=== PATIENT | female | born 1945 | race Caucasian/White ===

== ENCOUNTER → 2017-11-21 10:49 | Outpatient (CLI) | payer MEDICARE, MEDICAID, SELFPAY ==
[2017-07-22 05:44] VITALS: BP 152/79; BMI 27.2
--- NOTE | 2017-11-21 10:54 | ECHOCS_ITS ---
Reason For Study: CAD/ASHD Procedure This was a 2D Doppler, Color Flow transthoracic echocardiogram. The exam was of poor technical quality due to diminished acoustic windows. The study was technically difficult. Contrast injection was performed. Exam performed in department. Left Ventricle Normal LV size. Mild concentric left ventricular hypertrophy. Left ventricular systolic function is normal. The estimated ejection fraction is 60 %. No regional wall motion abnormalities noted. Right Ventricle Normal RV size. Normal systolic function. Atria Normal left atrium. Normal right atrium. No doppler evidence for ASD. Mitral Valve There is mild mitral annular calcification. Mild focal mitral valve calcification of the anterior leaflet. Mild (1+) mitral valve insufficiency. Tricuspid Valve Normal tricuspid valve. Trivial tricuspid valve insufficiency. Right ventricular systolic pressure estimated to be 32 mmHg. Aortic Valve Trisinus/trileaflet aortic valve. Mild diffuse aortic valve thickening. Mild focal aortic valve calcification. Trivial aortic valve insufficiency. Pulmonic Valve The pulmonic valve is not well visualized. Trivial pulmonic valve insufficiency. Great Vessels Normal sized aortic root. Calcified aortic root. Pericardium/Pleural No pericardial effusion. Medication 20 gauge I.V. with prn adaptor inserted into right arm. Diluted definity 2ml given slow IV push to enhance endocardial definition. MMode/2D Measurements & Calculations LVIDd: 3.6 cm IVSd: 1.5 cm LVOT diam: 2.0 cm LVIDs: 2.4 cm LVPWd: 1.3 cm LVOT area: 3.0 cm2 FS: 31.4 % Ao root diam: 2.6 cm LAV(MOD-sp4): 42.7 ml LVAd ap4: 28.6 cm2 LA dimension: 3.4 cm EDV(MOD-sp4): 86.6 ml EDV(sp4-el): 89.6 ml LVAs ap4: 15.1 cm2 ESV(MOD-sp4): 32.9 ml ESV(sp4-el): 32.9 ml EF(MOD-sp4): 62.0 % EF(sp4-el): 63.3 % SV(MOD-sp4): 53.7 ml SV(sp4-el): 56.7 ml LA A4 area: 16.1 cm2 RA A4 area: 12.9 cm2 Time Measurements MV dec time: 0.22 sec Doppler Measurements & Calculations MV E max escobar: 82.0 cm/sec Lat Peak E' Escobar: 5.8 cm/sec Med Peak E' Escobar: 7.2 cm/sec MV A max escobar: 112.7 cm/sec E/E' lat: 14.1 E/E' med: 11.3 MV E/A: 0.73 MV V2 max: 134.8 cm/sec MV P1/2t max escobar: 111.7 cm/sec Ao V2 max: 125.1 cm/sec MV max P.3 mmHg MV P1/2t: 84.4 msec Ao max P.3 mmHg MV V2 mean: 75.4 cm/sec MV dec slope: 387.6 cm/sec2 Ao V2 mean: 84.6 cm/sec MV mean P.7 mmHg MVA(P1/2t): 2.6 cm2 Ao mean P.2 mmHg MV V2 VTI: 35.1 cm Ao V2 VTI: 28.2 cm MVA(VTI): 2.4 cm2 CORAZON(I,D): 3.0 cm2 CORAZON(V,D): 3.1 cm2 AI max escobar: 422.8 cm/sec LV V1 max: 126.9 cm/sec SV(LVOT): 84.0 ml AI max P.5 mmHg LV V1 max P.4 mmHg AI dec slope: 284.6 cm/sec2 LV V1 mean P.6 mmHg AI P1/2t: 435.0 msec LV V1 mean: 73.0 cm/sec LV V1 VTI: 27.9 cm PA V2 max: 101.1 cm/sec TR max escobar: 268.2 cm/sec TR max P.8 mmHg Interpretation Summary The study was technically difficult. Contrast injection was performed. Left ventricular systolic function is normal. The estimated ejection fraction is 60 %. Mild concentric left ventricular hypertrophy. There is mild mitral annular calcification. Mild focal mitral valve calcification of the anterior leaflet. Mild (1+) mitral valve insufficiency. Trivial tricuspid valve insufficiency. Mild diffuse aortic valve thickening. Mild focal aortic valve calcification. Trivial aortic valve insufficiency. Trivial pulmonic valve insufficiency. Calcified aortic root. Right ventricular systolic pressure estimated to be 32 mmHg. Ordering Physician: Yumiko Sanchez Referring Physician: DOCTOR, OUT OF TOWN Performed By: Xavi Dutton RCS
== END ==
DX: I25.118 Atherosclerotic heart disease of native coronary artery with other forms of angina pectoris (principal); I49.9 Cardiac arrhythmia, unspecified; R01.1 Cardiac murmur, unspecified
CPT/HCPCS: 93306; Q9957; A4216; C8929

== ENCOUNTER → 2017-12-11 07:27 | Outpatient (CLI) | payer MEDICARE, MEDICAID, SELFPAY ==
--- NOTE | 2017-12-11 07:32 | CT_ITS ---
STUDY: CT CHEST WITH CONTRAST REASON FOR EXAM: Female, 72 years old. Follow-up for pulmonary nodule. RADIATION DOSAGE (If Supplied By Facility): CTDIvol = ( 12.02 ) mGy, DLP = ( 406.35 ) mGycm TECHNIQUE: Transaxial imaging was performed following intravenous administration of 100 ml of Isovue 300 contrast material. Multiplanar coronal and sagittal images were reformatted. Individualized dose optimization techniques were used for this CT. COMPARISON: None. FINDINGS: Hyperinflation. Fine suggestive of scarring at both lung apices slightly worse on the right side. No pulmonary nodule is seen. Minimal increased linear markings in the anterior aspect of the lingular segment of the left upper lobe suggestive of mild scarring. There is no demonstrated pleural abnormality. There are calcifications of the coronary arteries. Normal mediastinum. Normal hilar regions. Normal enhanced pulmonary arteries. Normal aorta arch and descending thoracic aorta. There are multi-level degenerative changes of the thoracic spine. Small hiatal hernia. CT/Chest WITH Contrast IMPRESSION: Hyperinflation. No acute abnormality is seen. Electronically Signed: Hector Mckeon MD at 13:00 EST Tel [phone], Service support ,
[2017-12-13 07:31] LABS: CREATININE FINGERSTICK 0.89 mg/dL (0.55-1.02); EGFR FINGERSTICK > 60 mL/min (>60)
== END ==
DX: R91.1 Solitary pulmonary nodule (principal)
CPT/HCPCS: 71260; Q9967

== ENCOUNTER → 2018-05-18 13:56 | Outpatient (CLI) | payer MEDICARE, SELFPAY ==
--- NOTE | 2018-05-18 14:03 | BI_ITS ---
MAMMOGRAPHY - BILATERAL SCREENING 3-D PAPITO SYNTHESIS REASON FOR EXAM: Female, 73 years old. Bilateral Screening 3-D tomosynthesis PERTINENT HISTORY: Right lateral breast flow during 9 years ago at [place], [place]. Right breast biopsy 40 years ago. Family breast carcinoma, sister age 70. TECHNIQUE: 2-D mammograms and 3-D Papito synthesis of the breast (s) were performed. CAD was performed. COMPARISON: 03/16/2017. FINDINGS: The breast composition is heterogeneously dense that can obscure small breast masses. No new significant architectural distortion, asymmetric density, abnormal microcalcification cluster, dominant mass, adenopathy, skin thickening or nipple retraction identified. Coarse benign-appearing calcifications. Right greater than left macronodular breast parenchyma appears unchanged. No significant new abnormality identified with tomosynthesis. BI/SCREENING MAMM (CAD), BILAT IMPRESSION: No mammographic sign of malignancy. Routine yearly mammograms recommended. ASSESSMENT CATEGORY: BIRADS Category 2: Benign. A letter regarding these results will be sent to the patient by the facility within 30 days. FOLLOW UP RECOMMENDATION: Yearly follow up mammogram recommended. (A) Negative results should not deter biopsy as a palpable lesion if present should be followed on clinical grounds and biopsy performed if clinically persistent for 3 months or increasing size. Approximately 10% of breast cancers are not detected by mammography. A normal mammogram should not delay biopsy of a clinically suspicious abnormality. Electronically Signed: Chester Hairston, at 21:30 EDT Tel , Service support ,
== END ==
DX: Z12.31 Encounter for screening mammogram for malignant neoplasm of breast (principal)
CPT/HCPCS: 77063; 77067

== ENCOUNTER → 2019-03-15 07:36 | Outpatient (CLI) | payer MEDICARE, SELFPAY ==
[2019-03-06 10:05] LABS: BUN 20 mg/dL (7-18)
--- NOTE | 2019-03-15 07:47 | CT_ITS ---
STUDY: CT CHEST WITH CONTRAST REASON FOR EXAM: Female, 74 years old. History of pulmonary nodule. RADIATION DOSAGE (If Supplied By Facility): CTDIvol = ( 9.7 ) mGy, DLP = ( 363.15 ) mGycm TECHNIQUE: Transaxial imaging was performed following intravenous administration of 100cc IV Isovue 300. Multiplanar coronal and sagittal images were reformatted. Individualized dose optimization techniques were used for this CT. COMPARISON: Comparison is made with prior examination dated December 11, 2017. FINDINGS: Stable small bilateral axillary lymph nodes. Stable scarring at the lung apices more prominent on the right side. Stable mild degree of increased linear markings in the anterior aspect of the lingular segment of the left upper lobe suggestive of scarring. There is no demonstrated pleural abnormality. There are calcifications of the coronary arteries. Normal mediastinum. Normal hilar regions. Normal enhanced pulmonary arteries. Normal aorta arch and descending thoracic aorta. There are multi-level degenerative changes of the thoracic spine. There is no demonstrated abnormality of the visualized upper abdomen. CT/Chest WITH Contrast IMPRESSION: Stable examination. Electronically Signed: Hector Mckeon, at 10:57 EDT , Service support ,
[2019-03-15 13:41] LABS: CREATININE FINGERSTICK 1.24 mg/dL (0.55-1.02)
== END ==
DX: R91.1 Solitary pulmonary nodule (principal); J44.9 Chronic obstructive pulmonary disease, unspecified; R05 Cough; I20.0 Unstable angina
CPT/HCPCS: 36415; 71260; 84520; Q9967

== ENCOUNTER → 2019-05-01 10:52 | Outpatient (CLI) | payer MEDICARE, SELFPAY ==
[2019-04-16 12:18] VITALS: BMI 26.2
--- NOTE | 2019-05-01 11:00 | US_ITS ---
STUDY: RENAL ULTRASOUND - COMPLETE REASON FOR EXAM: Female, 74 years old. UTIs. TECHNIQUE: Ultrasound evaluation of the kidneys was performed with real-time and static macedo-scale imaging. COMPARISON: None. FINDINGS: RIGHT KIDNEY: Normal location of the right kidney, which is normal in size. The right kidney measures 10.2 x 4.8 x 4.0 cm. There is a normal cortex of the right kidney. The renal cortex measures 1.0 cm. There is no right renal mass or cyst. There are no right renal calculi. There is an extra-renal pelvis of the right kidney. There is no distention of the renal calyces. DISTAL RIGHT URETER: There is non-visualization of the distal right ureter. There is no demonstrated right ureterovesical junction calculus. There is a visualized right ureteral jet. LEFT KIDNEY: Normal location of the left kidney, which is normal in size. The left kidney measures 11.2 x 4.4 x 4.6 cm. There is a normal cortex of the left kidney. The renal cortex measures 1.2 cm. There is no left renal mass or cyst. There are no left renal calculi. There is no left hydronephrosis. DISTAL LEFT URETER: There is non-visualization of the distal left ureter. There is no demonstrated left ureterovesical junction calculus. There is a visualized left ureteral jet. BLADDER: The distended urinary bladder has a volume of 335 ml. The empty urinary bladder has a volume of 128 ml. There is a normal wall thickness of the distended urinary bladder. There is no demonstrated mass within the urinary bladder. There are no demonstrated bladder calculi. US/Kidney and Bladder IMPRESSION: Normal ultrasound of the kidneys and urinary bladder. Electronically Signed: Chris Ulloa MD at 17:02 EDT , Service support ,
== END ==
PROVIDERS: Referring Provider Urology; Visit Provider Urology
DX: N39.0 Urinary tract infection, site not specified (principal)
CPT/HCPCS: 76770

== ENCOUNTER → 2019-06-27 12:35 | Outpatient (CLI) | payer MEDICARE, SELFPAY ==
[2019-04-16 12:18] VITALS: BMI 26.2
--- NOTE | 2019-06-28 08:23 | PFT ---
INTRODUCTION: The patient is a 74-year-old female that presents for pulmonary function studies secondary to a diagnosis of dyspnea. Respiratory therapy reports good patient effort. Bronchodilators were used during testing. INTERPRETATION: Forced expiration spirometry demonstrates the presence of a moderate large airways obstructive ventilatory defect. There was no significant response to aerosolized bronchodilators. Spirograms are of fair quality and plateau normally indicating slow emptying of the lungs. Body plethysmography was performed and reveals lung volumes to be within normal limits. Diffusing capacity by single breath CO is within normal limits as well. IMPRESSION: Irreversible moderate large airways obstructive ventilatory defect with preserved lung volumes and diffusing capacity.
== END ==
PROVIDERS: Referring Provider Internal Medicine Critical Care Medicine; Visit Provider Internal Medicine Critical Care Medicine
DX: R06.09 Other forms of dyspnea (principal)
CPT/HCPCS: 94060; 94726; 94729

== ENCOUNTER → 2019-07-18 12:16 | Outpatient (CLI) | payer MEDICARE, SELFPAY ==
[2019-04-16 12:18] VITALS: BMI 26.2
[2019-07-18 12:30] VITALS: PULSE 100; PULSE 71; PULSE 80; PULSE 90; PULSE 92; PULSE 94; O2SAT 95; O2SAT 96; O2SAT 97; O2SAT 98
--- NOTE | 2019-07-18 14:18 | PCM.PSN.6M ---
PSN 6 Minute Walk Test - 6 Minute Walk Test 6 Minute Walk Test: 6 Minute Walk Test PSN:6-Minute Walk Test Start: 07/18/19 12:43 Freq: Status: Active Protocol: RESP.6MINW Document 07/18/19 12:30 HG (Rec: 07/18/19 12:46 HG [id number]) 6 Minute Walk Test Date Performed 07/18/19 Time Performed 12:30 Height 5 ft 7 in Weight: 77.111 kg Weight in Pounds 170.[address]: Howard Moss Assistive device used: None Pre-test Oxygen Delivery Method Room Air Pulse Ox (%) 96 Pulse Rate (60-100 beats/min) 71 Dyspnea Lukasz Scale (0-10) 3 Exertion Lukasz Scale (6-20) 11 1st minute Oxygen Delivery Method Room Air Pulse Ox (%) 95 Pulse Rate (60-100 beats/min) 92 2nd minute Oxygen Delivery Method Room Air Pulse Ox (%) 95 Pulse Rate (60-100 beats/min) 100 3rd minute Oxygen Delivery Method Room Air Pulse Ox (%) 97 Pulse Rate (60-100 beats/min) 94 4th minute Oxygen Delivery Method Room Air Pulse Ox (%) 96 Pulse Rate (60-100 beats/min) 90 5th minute Oxygen Delivery Method Room Air Pulse Ox (%) 96 Pulse Rate (60-100 beats/min) 94 6th minute Oxygen Delivery Method Room Air Pulse Ox (%) 96 Pulse Rate (60-100 beats/min) 92 Post-test Oxygen Delivery Method Room Air Pulse Ox (%) 98 Pulse Rate (60-100 beats/min) 80 Dyspnea Lukasz Scale (0-10) 3 Exertion Lukasz Scale (6-20) 11 Full Laps Walked 16 Partial Lap, Number of Tiles Walked 0 Total Distance Walked (ft) 944 - Interpretation Interpretation: The patient was able to ambulate 944 feet over the course of 6 minutes on room air with no assistive devices or breaks. The patient did not have any significant tachycardia or desaturations noted. These findings are consistent with a musculoskeletal limitation exercise tolerance. - Recommendations Recommendations: No supplemental oxygen is indicated at this time.
== END ==
PROVIDERS: Referring Provider Internal Medicine Critical Care Medicine; Visit Provider Internal Medicine Critical Care Medicine
DX: R06.09 Other forms of dyspnea (principal)
CPT/HCPCS: 94618

== ENCOUNTER → 2019-11-07 09:16 | Outpatient (CLI) | payer MEDICARE, SELFPAY ==
[2019-07-23 06:09] VITALS: BMI 26.3
[2019-11-07 10:24] LABS: AST(SGOT) 12 U/L (15-37); Alanine Aminotransfer ALT/SGPT 24 U/L (13-56); Albumin, Serum 3.8 g/dL (3.2-5.0); Alkaline Phosphatase 81 U/L (45-117); Anion Gap 4 (5-15); BUN 19 mg/dL (7-18); BUN/Creat Ratio 20.9 RATIO (10-20); Calcium,Total 9.3 mg/dL (8.5-10.1); Chloride 106 mmol/L (98-107); Cholesterol 201 mg/dL (200); Creatinine, Serum 0.91 mg/dL (0.55-1.02); EST Glomerular Filtration Rate 64 mL/min (>60); Est Glom Filt Rate - Afr Amer 78 mL/min (>60); Globulin 3.7 g/dL (2.2-4.2); Glucose 110 mg/dL (74-106); High Density Lipoprotein 75 mg/dL; Potassium 3.6 mmol/L (3.5-5.1); Protein, Total 7.5 g/dL (6.4-8.2); Sodium Level 140 mmol/L (136-145); Triglycerides 112 mg/dL; Very Low Density Lipoprotein 22 mg/dL (5-40)
== END ==
DX: I10 Essential (primary) hypertension (principal); E78.5 Hyperlipidemia, unspecified
CPT/HCPCS: 36415; 80048; 80061; 80076

== ENCOUNTER → 2019-11-11 15:18 | Outpatient (CLI) | payer MEDICARE, SELFPAY ==
[2019-07-23 06:09] VITALS: BMI 26.3
--- NOTE | 2019-11-11 15:23 | BI_ITS ---
MAMMOGRAPHY - BILATERAL SCREENING REASON FOR EXAM: Female, 74 years old. Routine annual screening examination. PERTINENT HISTORY: Sister with breast cancer. Remote right breast biopsy. TECHNIQUE: Digital bilateral breast papito (3D mammographic acquisition) in the CC and MLO projections. 2-D mediolateral oblique (MLO) and craniocaudad (CC) views of both breasts were obtained. CAD: Full Field Digital Mammography with Computer Added Detection was performed. COMPARISON: Comparison is made with prior study dated May 18, 2018 and March 16, 2017. FINDINGS: Breast Composition: The breasts are heterogeneously dense, which may obscure small masses. There are no dominant masses or suspicious calcifications. Several nodular densities are seen in the right breast. The largest nodule measures 2.1 cm x 2.1 cm. This is located in the deep slightly lateral portion of the mid breast. These most likely ovarian cysts. Correlation with ultrasound of the right breast is recommended for further evaluation. No other significant abnormalities are identified. BI/SCREEN MAMM (CAD) W/PAPITO BILAT IMPRESSION: Several nodules in the right breast as described. Correlation with ultrasound is recommended. ASSESSMENT CATEGORY: BIRADS Category 0: Incomplete. Need additional imaging evaluation. A letter regarding these results will be sent to the patient by the facility within 30 days. Approximately 10% of breast cancers are not detected by mammography. A normal mammogram should not delay biopsy of a clinically suspicious abnormality. [id number] Electronically Signed: Hector Mckeon, at 9:00 EST , Service support ,
== END ==
DX: Z12.31 Encounter for screening mammogram for malignant neoplasm of breast (principal)
CPT/HCPCS: 77063; 77067

== ENCOUNTER → 2019-11-13 10:28 | Outpatient (CLI) | payer MEDICARE, SELFPAY ==
[2019-07-23 06:09] VITALS: BMI 26.3
--- NOTE | 2019-11-13 10:34 | US_ITS ---
STUDY: ULTRASOUND BREAST - RIGHT REASON FOR EXAM: Female, 74 years old. Abnormal screening mammogram. TECHNIQUE: Axial and longitudinal images of the RIGHT breast were performed with a high resolution ultrasound transducer. # OF IMAGES: 41 COMPARISON: Comparison is made with prior mammogram dated November 11, 2019 FINDINGS: RIGHT Breast: Multiple cysts are seen scattered throughout the breast. The largest measures 2.2 cm x 2.1 cm x 2.3 cm. Low-level echoes are seen within. This is at the 9:00 position of the breast at 2 cm from nipple. US/Breast Limited Unilateral IMPRESSION: Multiple breast cysts. ASSESSMENT CATEGORY: BIRADS Category 2: Benign. A letter regarding these results will be sent to the patient by the facility within 30 days. Electronically Signed: Hector Mckeon, at 11:14 EST , Service support ,
== END ==
PROVIDERS: Referring Provider Internal Medicine
DX: R92.8 Other abnormal and inconclusive findings on diagnostic imaging of breast (principal)
CPT/HCPCS: 76642

== ENCOUNTER 2020-01-02 07:16 | Inpatient (IN) | payer MEDICARE, MEDICAID, SELFPAY ==
[2019-07-23 06:09] VITALS: BMI 26.3
[2020-01-02] VITALS (34 sets, daily range): BP systolic 105–165; BP diastolic 56–85; PULSE 64–101; RESP 14–23; TEMP 36.3–36.8; O2SAT 91–99; BMI 26.6; BMI 26.3
--- NOTE | 2020-01-02 07:30 | EKG12_ITS ---
Test Reason : Blood Pressure : / mmHG Vent. Rate : 082 BPM Atrial Rate : 082 BPM P-R Int : 172 ms QRS Dur : 082 ms QT Int : 406 ms P-R-T Axes : 058 021 060 degrees QTc Int : 474 ms Normal sinus rhythm Nonspecific ST abnormality Abnormal ECG Confirmed by BLADIMIR ROJO ([id number]), communications editor ANTHONY FOSTER ([id number]) on 01/06/2020 11:05:07 AM Referred By: [facility] Confirmed By:BLADIMIR ROJO
--- NOTE | 2020-01-02 07:31 | ED.DCSUM_ITS ---
History of Present Illness Chief Complaint: General Illness Informant: Patient Narrative: Patient presents with 3-day history of exertional dyspnea as well as chest heaviness. She is worried about her heart or a COPD exacerbation. She has no significant cough she has no fever or chills she has no upper airway congestion. She has no abdominal pain she has no epigastric pain. She has no back pain. Past Medical History - Allergies and Home Meds Allergies/Adverse Reactions: Allergies Sulfa (Sulfonamide Antibiotics) Adverse Reaction (Verified 01/02/20 07:26) Rash Primary Care Physician: NOT,DEFINED [NON-STAFF] - Prior records reviewed: Yes Past Medical History: - - COPD, hypertension, hypercholesterolemia, history of PTCA Lives: Spouse/ Significant Other Smoking Status: Former smoker Review of Systems All systems negative except as indicated General: Denies: Fever Eyes: Denies: Visual changes - left Cardiovascular: Reports: - - She is adamantly denying any kind of chest pain although she does say she has some chest heaviness Respiratory: Reports: Dyspnea, Dyspnea on exertion. Denies: Cough, Sputum Gastrointestinal: Denies: Abdominal pain, Nausea, Vomiting Genitourinary: Denies: Dysuria Musculoskeletal: Denies: Myalgias Skin: Denies: Rash Neurological: Denies: Headache Psych: Denies: Anxiety Endocrine: Denies: Polyuria Hematologic: Denies: Easy bruising Allergy: Denies: Uticaria Physical Exam Vital Signs/Narrative: Vital Signs Temp Pulse Resp BP Pulse Ox 01/02/20 07:17 97.9 F 64 16 149/64 H 94 General: Well nourished, Well developed Head: Normocephalic Eyes: Perrl, EOMI ENT: No rhinorrhea Neck: Supple, Nontender Cardiovascular: Regular rate, Regular rhythm Respiratory: No distress, Chest nontender, - - Coarse bilateral breath sounds. Scant wheezing Abdomen: Soft, Nontender Back: Nontender, Normal Inspection. Negative for: CVA tenderness Extremities: Nontender, No edema Skin: Normal color, No rash Neurological: Alert, - - No gross focal deficits Diagnostic/Tx/Re-eval Chest X-Ray - ED: 1 View, Read by ED Physician, Normal, Heart, Lungs, Mediastinum, - - COPD pattern - Rhythm Strip Rhythm Strip: Sinus Rhythm Rate: 82 Ectopy: None - EKG Initial EKG Interpretation: Sinus Rhythm, - - Normal sinus rhythm. Normal AL and QTc intervals. Nonspecific ST changes throughout. Interpreted by emergency doctor - Medical Decision Making Patient has a [place] EKG with widespread ST changes, there is no ST depression or ST elevation. Troponin however is elevated. Initially patient was chest pain-free but she has had waves of chest discomfort since being here. We will start nitroglycerin. Patient be placed on a heparin drip. I will call cardiology and medicine for admission. Patient was seen by me during peak influenza as well as the coronavirus outbreak. It is an epidemic. It is in National state of emergency. Emergency departments are full. The hospitals are full. There is quite a bit of a risk in all patients presenting to the emergency department. However per [facility] protocol all attempts were made by myself as well as the staff to keep the contamination level down. I was fully mask and gloved the entire time in the patient's presence. - Critical Care Time Critical care time (excluding procedures): 30-74 minutes - Patient is having a non-ST elevation myocardial infarction. I attest that I spent 35 minutes in patient care this includes documentation discussion with family, repeat evaluation and consultations with specialist. ED Disposition - Plan for ED Patient: Disposition: Home or Assisted Living Diagnosis: NSTEMI (non-ST elevated myocardial infarction)
--- NOTE | 2020-01-02 07:37 | RAD_ITS ---
STUDY: X-RAY CHEST REASON FOR EXAM: Female, 74 years old. GENERAL ILLNESS, SOB, WEAKNESS, BODY ACHES, VOMITING TECHNIQUE: Single AP portable view of the chest. COMPARISON: CT scan dated March 15, 2019. FINDINGS: Cardiac silhouette unremarkable. Pulmonary vascularity unremarkable. Aorta calcified. Early left lung base airspace disease. Hyperaeration/COPD. Upper abdomen unremarkable. Osseous structures demineralized with degenerative features. No pneumothorax. RAD/Chest 1 View (Portable) IMPRESSION: Early left lung base airspace disease (potential infection) Electronically Signed: Bruce Youngblood DO at 8:02 EDT Tel , Service support ,
[2020-01-02] MEDS: Aspirin 81 MG TAB.CHEW 324 MG PO (07:44)
[2020-01-02 08:09] LABS: Absolute Lymphocyte Count 1.44 X10^3/uL (0.83-4.51); Absolute Neutrophil Count 7.3 X10^3/uL (2.0-7.7); Basophil# 0.04 X10^3/uL; Basophil% 0.4 % (0-1); Eosinophil# 0.14 X10^3/uL; Eosinophils% 1.4 % (0-5); Hematocrit 39.9 % (37-47); Hemoglobin 13.2 g/dL (12.0-15.0); Lymphocyte # 1.44 X10^3/ul (4.0); Lymphocyte % 14.9 % (19-41); Mean Corp Hgb Conc 33.1 g/dL (32-36); Mean Corpuscular Hgb 29.1 pg (27.0-32.0); Mean Corpuscular Volume 88.1 fL (81-99); Mean Platelet Vol. 10.1 fl (6.2-12.0); Monocyte# 0.69 X10^3/uL; Monocyte% 7.1 % (0-10); NRBC Flagged by Analyzer 0 % (0-5); Neutrophil # 7.31 X10^3/uL (2.7-7.7); Neutrophil % 75.6 % (47-70); Platelet Count 265 K/mm3 (150-450); RBC Distribution Width SD 41.4 fl (35.1-43.9); Red Blood Count 4.53 M/mm3 (4.2-5.4); White Blood Count 9.7 K/mm3 (4.4-11.0)
[2020-01-02 08:40] LABS: Anion Gap 7 (5-15); BUN 17 mg/dL (7-18); BUN/Creat Ratio 19.7 RATIO (10-20); Calcium,Total 9.3 mg/dL (8.5-10.1); Chloride 106 mmol/L (98-107); Creatinine, Serum 0.86 mg/dL (0.55-1.02); EST Glomerular Filtration Rate 68 mL/min (>60); Est Glom Filt Rate - Afr Amer 83 mL/min (>60); Estimated Creatinine Clearance 55.81 ml/min; Glucose 145 mg/dL (74-106); Potassium 3.4 mmol/L (3.5-5.1); Sodium Level 141 mmol/L (136-145)
--- NOTE | 2020-01-02 08:41 | ED.RN ---
PER LAB TROPONIN 3.8 DR. CHE [place].
[2020-01-02] MEDS: Nitroglycerin Infusion 250 ML 3 MG CONT INF (09:28)
[2020-01-02] MEDS: HEPARIN/D5w 25,000 UNITS 25,000 UNITS/250 ML IV.SOLN. 11 UNITS IV (09:32)
[2020-01-02] MEDS: 0.9% Normal Saline 1,000 ML 75 ML IV ×2 (10:50→20:17)
[2020-01-02] MEDS: Morphine 2 MG/ML Syringe IV (10:51)
[2020-01-02] MEDS: 0.9% Saline Lock 10 ML Syringe IV (10:56)
[2020-01-02] MEDS: Ondansetron 4 MG/2 ML Vial IV ×2 (10:56→22:04)
--- NOTE | 2020-01-02 11:44 | PCM.HP.STD ---
<Yonatan Manning - Last Filed: 01/02/20 11:44> Problem List (1) NSTEMI (non-ST elevated myocardial infarction) Status: Acute (2) HTN (hypertension) Status: Chronic (3) HLD (hyperlipidemia) Status: Chronic (4) Stage 2 moderate COPD by GOLD classification Status: Chronic Comment: FEV1 67% (5) DEEPAK (obstructive sleep apnea) Status: Chronic Comment: Noncompliant with therapy History of Present Illness Date of Admission: 01/02/20 Chief Complaint: chest pain The patient is a 74 year old F with pmhx of CAD, prior stents in 2010, pt of Dr. Zapata, hx DEEPAK CPAP taken away for noncompliance, HTN, HLD, former severe smoking hx, who presents to the ER with c/o chest pain. She has been unwell for three days. Initially she had c/o SOB and thought her COPD was acting up. She had some pain in her left arm radiating up into the neck and right shoulder. This morning she had chest pain. This was a pressure on the midsternal region. She came to the ER and was found to have EKG with nonspecific changes but an elevated troponin. She was felt to have NSTEMI, she was admited to PCU, and Dr. Garcia plans to take her for a heart cath this afternoon. She was placed on nitro after which her chest pain improved to 5/10. She developed a headache which is now resolved.[] Past Medical History Past Medical History (Chronic Problems): Chronic Problems (Last Reviewed 07/23/19 @ 12:46 by Nelsy Ramos) HTN (hypertension) (Chronic) HLD (hyperlipidemia) (Chronic) Stage 2 moderate COPD by GOLD classification (Chronic) FEV1 67% Dyspnea (Chronic) Lung nodule (Chronic) Periodic limb movement (Chronic) DEEPAK (obstructive sleep apnea) (Chronic) Noncompliant with therapy Medical History: Medical History (Last Reviewed 07/23/19 @ 12:46 by Nelsy Ramos) Lung nodule (Chronic) R91.1 Periodic limb movement (Chronic) G47.61 DEEPAK (obstructive sleep apnea) (Chronic) G47.33 Noncompliant with therapy Allergies Sulfa (Sulfonamide Antibiotics) Adverse Reaction (Verified 01/02/20 07:26) Rash Home Medications: Ambulatory Orders Medication Instructions Recorded Simvastatin 40 mg PO DAILY 07/22/17 Ascorbic Acid [Vitamin C] 500 mg PO DAILY@0800 01/02/20 Aspirin [Aspirin, Baby] 81 mg PO DAILY@0801/02/20 Cholecalciferol (VIT D3) [Vitamin 1,000 unit PO DAILY 01/02/20 D] Polyethylene Glycol 3350 [Miralax] 0.5 packet PO DAILY 01/02/20 Triamterene/Hydrochlorothiazid 1 cap PO DAILY 01/02/20 [Triamterene-Hctz 37.5-25 mg Cp] Umeclidinium Brm/Vilanterol Tr 1 ea IH DAILY 01/02/20 [Anoro Ellipta 62.5-25 Mcg INH] Surgical History: Surgical History (Last Reviewed 07/23/19 @ 12:46 by Nelsy Ramos) History of lymph node excision (Resolved) Z98.890 History of hysterectomy (Resolved) Z90.710 History of cholecystectomy (Resolved) Z90.49 Surgical History: cholecystectomy, hysterectomy Psychiatric History: No pertinent psych hx 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 Denies: Edema, Heaviness, Light Headedness, Palpitations, Syncope Respiratory: Reports: Shortness of Breath. Denies: Cough, Shortness of breath at rest, Sputum production, Wheezing Gastrointestinal: Denies: Abdominal Pain, Nausea, Vomiting Genitourinary: Denies: Dysuria Musculoskeletal: Denies: Joint Pain, Joint Tenderness Skin: Denies: Rash, Wounds Neurological: Denies: Numbness, Tingling, Focal weakness Psychiatric: Denies: Anxiety, Depression, Homicidal Ideations, Suicidal Ideations Hematologic/ Lymphatic: Denies: Easy Bruising, Easy Bleeding VTE Information - Inpt Only VTE Present on Admission: No VTE Mechan Device Prophylaxis: None VTE Pharm Prophylaxis ordered?: Yes Patient Problems: Active and Suspected Problems (Last Reviewed 07/23/19 @ 12:46 by Nelsy Ramos) NSTEMI (non-ST elevated myocardial infarction) (Acute) - Physical Exam Vitals/I&O's: Vital Signs Temp Pulse Resp BP Pulse Ox 97.8 F 90 14 105/61 93 01/02/20 10:00 01/02/20 10:04 01/02/20 10:00 01/02/20 11:01 01/02/20 10:00 Oxygen Flow Rate (L/min) 2 Oxygen Delivery Method Nasal Cannula Weight: 168 lb 3.403 oz Body Mass Index (BMI) 26.3 Intake and Output for Last 24 Hours 12/31/19 01/01/20 01/02/20 23:59 23:59 23:59 Intake Total 220.78 / 220.78 Balance 220.78 / 220.78 General: Alert, Oriented x3, Cooperative HEENT: Atraumatic, PERRLA, EOMI, Normocephalic Neck: Supple, No JVD, Negative Carotid Bruits Lungs: Clear to auscultation, Normal air movement Cardiovascular: Regular rate, No murmurs Abdomen: Bowel Sounds Present, Soft, Non Tender Extremities: No edema, Capillary Refill Less than 3 Seconds Skin: No rashes, No breakdown Musculoskeletal: No Tenderness to Palpation of Joints or Extremities Neurological: Cranial nerves II-XII grossly intact Psych/Mental Status: Normal Affect, Appropriate, Alert and oriented to time, place, person, mood and affect Laboratory Results 01/02/20 07:57: WBC 9.7, RBC 4.53, Hgb 13.2, Hct 39.9, MCV 88.1, MCH 29.1, MCHC 33.1, RDW Std Deviation 41.4, RDW Coeff of Vlad 13.0, Plt Count 265, MPV 10.1, Immature Gran % (Auto) 0.600, Neut % (Auto) 75.6 H, Lymph % (Auto) 14.9 L, [place] % (Auto) 7.1, Eos % (Auto) 1.4, Baso % (Auto) 0.4, Absolute Neuts (auto) 7.3, Absolute Lymphs (auto) 1.44, Nucleated RBC % 0 01/02/20 07:57: Sodium 141, Potassium 3.4 L, Chloride 106, Carbon Dioxide 28.0, Anion Gap 7, BUN 17, Creatinine 0.86, Estim Creat Clear Calc 55.81, Est GFR (MDRD) Af Amer 83, Est GFR (MDRD) Non-Af 68, BUN/Creatinine Ratio 19.7, Glucose 145 H, Calcium 9.3, Troponin I 3.800 H* 01/02/20 11:02: Troponin I 4.540 H* Current Medications Heparin Sodium/Dextrose () 25,000 units in 250 mls @ 11 mls/hr IV .[id number] [facility]; Protocol Last Titration: 01/02/20 11:00 Dose: 1,100 units/hr, 11 mls/hr Documented by: Nitroglycerin/Dextrose () 250 mls @ 3 mls/hr CONT INF .[id number] [facility]; Protocol Last Titration: 01/02/20 11:01 Dose: 5 mcg/min, 3 mls/hr Documented by: Sodium Chloride () 1,000 mls @ 75 mls/hr IV .[id number] [facility] Last Admin: 01/02/20 10:50 Dose: 75 mls/hr Documented by: Morphine Sulfate () 2 mg IV Q3H PRN PRN PRN Reason: Pain Score 6-10/10 Last Admin: 01/02/20 10:51 Dose: 2 mg Documented by: Ondansetron HCl (Zofran) 4 mg IV Q8H PRN PRN PRN Reason: NAUSEA/VOMITING Last Admin: 01/02/20 10:56 Dose: 4 mg Documented by: Sodium Chloride () 10 - 40 ml IV UD PRN PRN Reason: SALINE FLUSH Last Admin: 01/02/20 10:56 Dose: 10 ml Documented by: Assessment/Plan All Active Problems (Last Reviewed 07/23/19 @ 12:46 by Nelsy Ramos) NSTEMI (non-ST elevated myocardial infarction) (Acute) History of lymph node excision (Resolved) History of hysterectomy (Resolved) History of cholecystectomy (Resolved) 1. NSTEMI, hx CAD prior stents - EKG nonspecific changes, elevated trop. C/s cardiology, heart cath today. Continue aspirin, statin, morphine, nitro, heparin. 2. HTN - hold triamterene/hctz 3. HLD - maximize statin therapy 4. DEEPAK - noncompliant with CPAP, had it taken away. 5. COPD, Former smoker - smoked ages [age], quit in 1999. Continue prn aerosols, Incentive spirometer. Pt of Dr. Moss. DVT ppx: heparin This patient was seen by Yonatan Manning PA-C under the supervision of Dr. Pro. <InocenciaRoger F - Last Filed: 01/02/20 12:27> History of Present Illness The patient is a 74 year old F [] Past Medical History Medical History: Medical History (Last Reviewed 07/23/19 @ 12:46 by Nelsy Ramos) Lung nodule (Chronic) R91.1 Periodic limb movement (Chronic) G47.61 DEEPAK (obstructive sleep apnea) (Chronic) G47.33 Noncompliant with therapy Allergies Sulfa (Sulfonamide Antibiotics) Adverse Reaction (Verified 01/02/20 07:26) Rash Surgical History: Surgical History (Last Reviewed 07/23/19 @ 12:46 by Nelsy Ramos) History of lymph node excision (Resolved) Z98.890 History of hysterectomy (Resolved) Z90.710 History of cholecystectomy (Resolved) Z90.49 - *Family History Maternal Family History: Family History (Last Reviewed 01/02/20 @ 11:50 by LINDA Lamar) Father Heart disease Sister Heart disease Breast cancer Diabetes Brother Heart disease Alzheimer's dementia Diabetes Mother Cancer - Physical Exam Vitals/I&O's: Vital Signs Temp Pulse Resp BP Pulse Ox 97.8 F 88 14 105/61 93 01/02/20 10:00 01/02/20 12:20 01/02/20 10:00 01/02/20 11:01 01/02/20 10:00 Oxygen Flow Rate (L/min) 2 Oxygen Delivery Method Nasal Cannula Weight: 168 lb 3.403 oz Body Mass Index (BMI) 26.3 Intake and Output for Last 24 Hours 12/31/19 01/01/20 01/02/20 23:59 23:59 23:59 Intake Total 220.78 / 220.78 Balance 220.78 / 220.78 Laboratory Results 01/02/20 07:57: WBC 9.7, RBC 4.53, Hgb 13.2, Hct 39.9, MCV 88.1, MCH 29.1, MCHC 33.1, RDW Std Deviation 41.4, RDW Coeff of Vlad 13.0, Plt Count 265, MPV 10.1, Immature Gran % (Auto) 0.600, Neut % (Auto) 75.6 H, Lymph % (Auto) 14.9 L, [place] % (Auto) 7.1, Eos % (Auto) 1.4, Baso % (Auto) 0.4, Absolute Neuts (auto) 7.3, Absolute Lymphs (auto) 1.44, Nucleated RBC % 0 01/02/20 07:57: Sodium 141, Potassium 3.4 L, Chloride 106, Carbon Dioxide 28.0, Anion Gap 7, BUN 17, Creatinine 0.86, Estim Creat Clear Calc 55.81, Est GFR (MDRD) Af Amer 83, Est GFR (MDRD) Non-Af 68, BUN/Creatinine Ratio 19.7, Glucose 145 H, Calcium 9.3, Troponin I 3.800 H* 01/02/20 07:57: PT 12.9, INR 1.0, APTT 30.5 01/02/20 11:02: Troponin I 4.540 H* Current Medications Heparin Sodium/Dextrose () 25,000 units in 250 mls @ 11 mls/hr IV .[id number] [facility]; Protocol Last Titration: 01/02/20 11:00 Dose: 1,100 units/hr, 11 mls/hr Documented by: Nitroglycerin/Dextrose () 250 mls @ 3 mls/hr CONT INF .[id number] [facility]; Protocol Last Titration: 01/02/20 11:01 Dose: 5 mcg/min, 3 mls/hr Documented by: Sodium Chloride () 1,000 mls @ 75 mls/hr IV .[id number] [facility] Last Admin: 01/02/20 10:50 Dose: 75 mls/hr Documented by: Morphine Sulfate () 2 mg IV Q3H PRN PRN PRN Reason: Pain Score 6-10/10 Last Admin: 01/02/20 10:51 Dose: 2 mg Documented by: Ondansetron HCl (Zofran) 4 mg IV Q8H PRN PRN PRN Reason: NAUSEA/VOMITING Last Admin: 01/02/20 10:56 Dose: 4 mg Documented by: Sodium Chloride () 10 - 40 ml IV UD PRN PRN Reason: SALINE FLUSH Last Admin: 01/02/20 10:56 Dose: 10 ml Documented by: Addendum: Dr. Pro I personally examined the patient and reviewed the chart. I agree with the above. 74-year-old female with a history of a cardiac stent in 2010 as well as a former smoker and a family history of heart disease presents with intermittent chest pain that became constant yesterday. She says that her chest pain initially started 3 days ago. She has some shortness of breath and states that it is worse when laying down. In the ER she was started on nitroglycerin drip which she says has relieved her pain since admission. Her troponin was elevated at 3.8 and climbed to 4.54, kept n.p.o. and cardiology was consulted to perform a cardiac cath which they plan to do today. We will continue with aspirin and statin, if they place a stent we will also add Plavix. Inpatient E&M: 44838 Init Hosp L3
[2020-01-02 12:14] LABS: Prothrombin Time (Protime)PT. 12.9 SECONDS (11.7-14.9)
[2020-01-02 12:15] LABS: Partial Thromboplast Time 30.5 Seconds (24.1-36.2)
--- NOTE | 2020-01-02 12:17 | PCM.CONS.C ---
Reason for Consult Date of Consultation: 01/02/20 History of Present Illness: The patient is a 74 year old F with pmhx of CAD, prior stents in 2010, pt of Dr. Zapata, hx DEEPAK CPAP taken away for noncompliance, HTN, HLD, former severe smoking hx, who presents to the ER with c/o chest pain. She has been unwell for three days. Initially she had c/o SOB and thought her COPD was acting up. She had some pain in her left arm radiating up into the neck and right shoulder. This morning she had chest pain. This was a pressure on the midsternal region. She came to the ER and was found to have EKG with nonspecific changes but an elevated troponin. ROS: All else is negative except that in the HPI. Past Medical History Allergies/Adverse Reactions: Allergies Sulfa (Sulfonamide Antibiotics) Adverse Reaction (Verified 01/02/20 07:26) Rash Home Medications: Ambulatory Orders Medication Instructions Recorded Simvastatin 40 mg PO DAILY 07/22/17 Ascorbic Acid [Vitamin C] 500 mg PO DAILY@0800 01/02/20 Aspirin [Aspirin, Baby] 81 mg PO DAILY@0800 01/02/20 Cholecalciferol (VIT D3) [Vitamin 1,000 unit PO DAILY 01/02/20 D] Polyethylene Glycol 3350 [Miralax] 0.5 packet PO DAILY 01/02/20 Triamterene/Hydrochlorothiazid 1 cap PO DAILY 01/02/20 [Triamterene-Hctz 37.5-25 mg Cp] Umeclidinium Brm/Vilanterol Tr 1 ea IH DAILY 01/02/20 [Anoro Ellipta 62.5-25 Mcg INH] Past Medical History (Chronic Problems): Chronic Problems (Last Reviewed 07/23/19 @ 12:46 by Nelsy Ramos) HTN (hypertension) (Chronic) HLD (hyperlipidemia) (Chronic) Stage 2 moderate COPD by GOLD classification (Chronic) FEV1 67% Dyspnea (Chronic) Lung nodule (Chronic) Periodic limb movement (Chronic) DEEPAK (obstructive sleep apnea) (Chronic) Noncompliant with therapy Surgical History: cholecystectomy, hysterectomy Psychiatric History: No pertinent psych hx 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 history - *Family History Maternal Family History: Family History (Last Reviewed 01/02/20 @ 11:50 by LINDA Lamar) Father Heart disease Sister Heart disease Breast cancer Diabetes Brother Heart disease Alzheimer's dementia Diabetes Mother Cancer Lives: Spouse/ Significant Other Smoking Status: Former smoker Tobacco Use: Non-smoker Alcohol: None Drugs: None Objective: Vital Signs Temp Pulse Resp BP Pulse Ox 97.8 F 90 14 105/61 93 01/02/20 10:00 01/02/20 10:04 01/02/20 10:00 01/02/20 11:01 01/02/20 10:00 Oxygen Flow Rate (L/min) 2 Oxygen Delivery Method Nasal Cannula Weight: 168 lb 3.403 oz Body Mass Index (BMI) 26.3 Intake and Output for Last 24 Hours 12/31/19 01/01/20 01/02/20 23:59 23:59 23:59 Intake Total 220.78 / 220.78 Balance 220.78 / 220.78 General: Awake, Alert, Oriented x 3 HEENT: Atraumatic Oral: Moist Mucosa Neck: Supple Cardiovascular: Regular Rhythm Extremities: No edema Skin: No Rashes Psych/Mental Status: Appropriate 01/02/20 07:57: WBC 9.7, RBC 4.53, Hgb 13.2, Hct 39.9, MCV 88.1, MCH 29.1, MCHC 33.1, Plt Count 265, MPV 10.1, Immature Gran % (Auto) 0.600, Neut % (Auto) 75.6 H, Lymph % (Auto) 14.9 L, [place] % (Auto) 7.1, Eos % (Auto) 1.4, Baso % (Auto) 0.4, Absolute Neuts (auto) 7.3, Nucleated RBC % 0 01/02/20 07:57: Sodium 141, Potassium 3.4 L, Chloride 106, Carbon Dioxide 28.0, Anion Gap 7, BUN 17, Creatinine 0.86, Est GFR (MDRD) Af Amer 83, Est GFR (MDRD) Non-Af 68, BUN/Creatinine Ratio 19.7, Glucose 145 H, Calcium 9.3, Troponin I 3.800 H* 01/02/20 07:57: PT 12.9, INR 1.0, APTT 30.5 01/02/20 11:02: Troponin I 4.540 H* Rhythm: EKG: ECHO: Stress Test: Cardiac Cath: PCI: CT Surgery: Holter monitor: EPS: PPM: CXR: Chest CT Scan: Assessment/Plan 1. NSTEMI: We will proceed with coronary angiography. Risks and benefits were discussed with the patient in detail. Continue heparin drip at this time. The patient on aspirin, statin, beta-mercedez.
--- NOTE | 2020-01-02 12:57 | CASEMGMT ---
GREGORY HAYES assessment: Face to Face with patient for initial transition planning/care coordination assessment. GREGORY HAYES introduced self and role at [facility], pt voices understanding and consents to assessment at this time. Pt is A/Ox4 at this time and answers all questions appropriately at this time. Pt's at bedside during assessment. Care providers, pharmacy, and demographics verified/updated at this time. Presentation: General illness, SOB, weakness, body aches, vomiting Admitting dx: NSTEMI PCP: Alonso Zapata Specialists: [facility]; [facility]; krystle Bateman Preferred Pharmacy: [facility] Insurance: [employer] Prescription Benefit: [employer] Living Will/HPOA: Pt states is unsure if she has LW/HPOA but pt declines info at this time. Pt/ are aware that SW can assist with completing if pt would like, voice understanding. This RN FREDDY encouraged to bring in copies if he finds them, voices understanding. LNOK: Ayush Bajwa, ; Sabina Beckman, daughter Living Arrangements: Pt states lives with in mobile home with 3 steps in and states no concerns at home at this time. Pt states is normally independent with ADL's. Transportation: Pt states drives self and states no transportation concerns at this time. DME/HHC: Pt states had grab bars in shower and states no need for any at this time. Pt states no hx of HHC or SNF in the past. Pt states no concerns with going home at time of discharge. Pt states is retired. Pt states does not smoke or drink ETOH. Pt states no further concerns/needs at this time. CM to follow for any further discharge planning/needs. Advised pt to ask for CM if any further questions/concerns/needs arise, voices understanding. Pt Goal: Home Plan: [place] GREGORY HAYES
--- NOTE | 2020-01-02 13:58 | CASEMGMT ---
According to the [facility] website, the following are in-network tertiary facilities: [facility], [facility], [facility], [facility], [facility], [facility], [facility], [place], [facility], and . Lynn JENKINS CM
[2020-01-02] MEDS: Potassium Chloride 10mEq/100mL 10 MEQ/100 ML IV.SOLN. 100 MEQ IV BOLUS ×2 (14:13→17:27)
--- NOTE | 2020-01-02 14:28 | NURSING ---
consent signed for cardiac cath
--- NOTE | 2020-01-02 17:21 | CL.I_ITS ---
Patient Name: BENJAMÍN SILVERMAN Study Date: 01/02/2020 Performing: Elissa Garcia MD Ht: 67 inches 170 cm : 1945 Wt: 167.8 lbs 76 kg Age: 74 Gender: female BSA: 1.87 PROCEDURE(S) PERFORMED [id number] W OR WO PTCA, SINGLE CORONARY ARTERY [id number] W OR WO PTCA, SINGLE CORONARY ARTERY CLINICAL PROFILE AND CO-MORBIDITIES Indications: ACS <= 24 hrs Heart Failure: None Stress/Imaging Stress/Image Study Performed: No CAD Presentations: Non-STEMI. Symptom onset Date/Time: 01/02/20 Time Not Available CONCLUSIONS Two vessel CAD as described. Severe LV systolic dysfunction. No significant or MR. Successful PCI of mid LAD and mid RCA with JENAE RECOMMENDATIONS DESCRIPTION OF PROCEDURE The patient arrived to the procedure lab. The risks and benefits of the procedure as well as a full d escription of our services here and lack of surgical backup were fully explained to the patient and/o r their significant other prior to the catheterization. The Timeout was completed, verifying the barbara ect patient and procedure. The patient's procedural site was prepped and draped in the usual fashion. Local anesthetic was given subcutaneously to right radial region with Lidocaine 2%. Using a modified Seldinger technique, arterial access was obtained via the right radial artery, a 6Fr sheath was inse rted.. Left Coronary Artery selective angiography was performed in multiple views using a 5 Fr. JL3. 5 catheter. Right Coronary Artery selective angiography was then performed in multiple views using a 5 Fr. JR 4 catheter. Left Ventriculography was performed in BRICEÑO projection using a 5 Fr. JR 4catheter . LV to AO pullback pressures were then recordedThe images were reviewed and options discussed. A decision was then made to proceed with an Intervention, IVUS or other adjunct procedure. IL 3.5 Guide catheter was inserted and engaged into the LCA. BMW Guide wire was advanced to the L AD. [place] AP inserted Pass # 1 Angiogram performed post export. [place] AP Removed 3x12 Euphora Ballo on catheter was inserted. Balloon catheter was advanced across lesion in the LAD, mid. PTCA balloon i nflated at 10 atms for 25 secs. Angiogram performed post balloon dilatation. 4x20 Synergy Drug Elutin g stent was inserted. Drug Eluting stent was advanced across the lesion in the LAD, mid. 4x12 NC Euph ora Balloon catheter was inserted. Balloon catheter was inserted post stent. Angiogram performed post stent deployment. Guide wire was repositioned to the RCA IL 3.5 Guide catheter was repositioned and engaged into the RCA. 4x20 Synergy Drug Eluting stent was inserted. Drug Eluting stent was advanced a cross the lesion in the right coronary, mid. Angiogram performed post stent deployment. Angiogram per formed post stent deployment. The arterial sheath was pulled and a TR Band was applied for hemostasis, 12 cc of air CORONARY ANGIOGRAPHY DOMINANCE: Right Dominant LEFT HEART ASSESSMENT Left Ventricular Ejection Fraction: by LV Gram 25-30 % Anterior Hypokinesis - Severe. Apical Hypokinesis - Severe LEFT MAIN: Mild luminal irregularities LEFT ANTERIOR DESCENDING ARTERY: MID LAD: 100 % Stenosis CIRCUMFLEX ARTERY: Mild luminal irregularities RIGHT CORONARY ARTERY: MID RCA: 90 % Stenosis VALVE FINDINGS: No Aortic Valve Stenosis No Mitral Insufficency INTERVENTION INFORMATION LESION SITE: LAD (Mid) Lesion Complexity: High/C, chronic total occlusion: No, lesion at bifurcation: No, thrombus present: Yes, lesion length: 19 mm, culprit lesion: Yes, Previously treated lesion: No Pre Stenosis: 100 % Pre intervention GARY flow: 0 PROCEDURE: Drug Eluting Stent with pre and post dilatation Post Stenosis: 0 % Post intervention GARY flow: 3 Lesion Devices: Terumo 6 Fr Ikari Left 3.5 100cm Guide Catheter Nguyen .014 BMW [place] Straight 190cm Medtronic 6 Fr. [place] AP Aspiration Catheter Medtronic SC EUPHORA RX 3.0x12 BALLOON Dany Sci Synergy MR JENAE 4.00x20 Medtronic NC EUPHORA RX 4.0x12 BALLOON LESION SITE: RCA (Mid) Lesion Complexity: High/C, chronic total occlusion: No, lesion at bifurcation: No, thrombus present: No, lesion length: 19 mm, culprit lesion: Yes, Previously treated lesion: No Pre Stenosis: 90 % Pre intervention GARY flow: 3 PROCEDURE: Drug Eluting Stent Post Stenosis: 0 % Post intervention GARY flow: 3 Lesion Devices: Terumo 6 Fr Ikari Left 3.5 100cm Guide Catheter Nguyen .014 BMW [place] Straight 190cm Dany Sci Synergy MR JENAE 4.00x20 COMPLICATIONS No Complications PROCEDURE MEDICATIONS Versed 1 mg IV Fentanyl 50 mcg IV Oxygen: 2 L/min via nasal cannula Brilinta 180 mg PO @ 01/02/2020 16:52:10 Heparin given IA 01/02/2020 16:01:45 Heparin 3000 unit(s) IV 01/02/2020 16:13:47 Nitro glycerin 25mg / 250ml D5W @ 5 mcg/min IV arrived from floor 01/02/2020 16:02:04 Nitro 200 mcg IC 01/02/2020 16:21:14 Nitro 200 mcg IC 01/02/2020 16:34:18 Nitro glycerin 25mg / 250ml D5W @ 0 mcg/min discontinued 01/02/2020 16:52:35 Verapamil 2.5mg, Ntg 100mcgs, 3000 units of Heparin given IA 01/02/2020 16:01:45 Zofran 4 mg IV 01/02/2020 16:41:12 SUMMARY OF HEMODYNAMIC DATA Time AIR REST ECG 15:53:53 AO 125/70 (97) SA 16:03:56 LV 144/0, 27 16:07:20 LV 140/-1, 26 16:07:27 LV 140/0, 30 16:07:59 LVp 129/7, 34 16:08:10 AOp 125/68 (92) 16:08:15 Signed By Elissa Garcia MD On 01/02/2020 17:20:53 Elissa Garcia MD
--- NOTE | 2020-01-02 17:45 | NURSING ---
assisted to bsc and then back to bed
[2020-01-02 18:16] LABS: Hematocrit 38.2 % (37-47); Hemoglobin 12.3 g/dL (12.0-15.0); Mean Corp Hgb Conc 32.2 g/dL (32-36); Mean Corpuscular Hgb 28.7 pg (27.0-32.0); Mean Corpuscular Volume 89.3 fL (81-99); Mean Platelet Vol. 10.3 fl (6.2-12.0); Platelet Count 255 K/mm3 (150-450); RBC Distribution Width CV 12.9 % (11.6-14.6); RBC Distribution Width SD 41.8 fl (35.1-43.9); Red Blood Count 4.28 M/mm3 (4.2-5.4); White Blood Count 16.1 K/mm3 (4.4-11.0)
--- NOTE | 2020-01-02 19:47 | NURSING ---
PATIENT COMPLAINING OF A CONSTANT CHEST PRESSURE WHEN WOKE UP RATING 6/10.
--- NOTE | 2020-01-02 20:10 | NURSING ---
PATIENT'S CALLED AND UPDATED ABOUT PATIENT GOING BACK TO MEAT CUTTER APPRENTICE
--- NOTE | 2020-01-02 20:25 | NURSING ---
PATIENT TAKEN TO COVER CUTTER
--- NOTE | 2020-01-02 21:30 | EKG12_ITS ---
Test Reason : CP Blood Pressure : / mmHG Vent. Rate : 097 BPM Atrial Rate : 097 BPM P-R Int : 166 ms QRS Dur : 082 ms QT Int : 348 ms P-R-T Axes : 068 076 053 degrees QTc Int : 441 ms Normal sinus rhythm Anteroseptal infarct , possibly acute Lateral injury pattern ACUTE MN / STEMI Abnormal ECG When compared with ECG of 02-JAN-2020 07:37, MANUAL COMPARISON REQUIRED, DATA IS UNCONFIRMED Confirmed by BLADIMIR ROJO ([id number]), makeup editor ANTHONY FOSTER ([id number]) on 01/06/2020 11:40:54 AM Referred By: DR VASQUEZ Confirmed By:BLADIMIR ROJO
--- NOTE | 2020-01-02 21:46 | CL.D_ITS ---
Patient Name: BENJAMÍN SILVERMAN Study Date: 01/02/2020 Performing: Elissa Garcia MD Ht: 67 inches 170 cm : 1945 Wt: 167.8 lbs 76 kg Age: 74 Gender: female BSA: 1.87 PROCEDURE(S) PERFORMED NF01-EHS/COR/LV CLINICAL PROFILE AND INDICATIONS Indications: ACS <= 24 hrs Heart Failure: None Stress/Imaging Stress/Image Study Performed: No CAD Presentations: Other: suspected STEMI CONCLUSIONS CAD as described with the stents placed earlier today being widely patent. Severe LV dysfunction. No significant or MR RECOMMENDATIONS DESCRIPTION OF PROCEDURE The patient arrived to the procedure lab. The risks and benefits of the procedure as well as a full d escription of our services here and current unavailability of surgical backup were fully explained to the patient and/or their significant other prior to the catheterization. The Timeout was completed, verifying the correct patient and procedure. The patient's procedural site was prepped and draped in the usual fashion. Local anesthetic was given subcutaneously to right groin region with Lidocaine 2%. Using a modified Seldinger technique, arterial access was obtained via the right femoral artery, a 6 Fr sheath was inserted. Left Ventriculography was performed in BRICEÑO projection using a 5 Fr. JR 4 cat heter. LV to AO pullback pressures were then recorded.The arterial sheath was pulled and a Perclose c losure device was deployed for hemostasis CORONARY ANGIOGRAPHY DOMINANCE: Right Dominant LEFT HEART ASSESSMENT Left Ventricular Ejection Fraction: by LV Gram 30-35 % Anterior Hypokinesis - Severe. Apical Hypokinesis - Severe LEFT MAIN: Mild luminal irregularities LEFT ANTERIOR DESCENDING ARTERY: Mild luminal irregularities, Previously placed stent is patent CIRCUMFLEX ARTERY: Mild luminal irregularities RIGHT CORONARY ARTERY: Mild luminal irregularities Previously placed stent is patent VALVE FINDINGS: No Aortic Valve Stenosis No Mitral Insufficency COMPLICATIONS No Complications PROCEDURE MEDICATIONS Oxygen: 2 L/min via nasal cannula Heparin 6000 unit(s) IV 01/02/2020 21:05:41 SUMMARY OF HEMODYNAMIC DATA Time AIR REST ECG 21:03:14 LV 145/3, 15 21:11:48 LV 144/-3, 24 21:12:05 LV 140/-2, 26 21:12:11 LVp 118/28, 37 21:12:49 AO 114/74 (94) 21:12:54 AO 111/73 (92) SA 21:12:57 Signed By Elissa Garcia MD On 01/02/2020 21:45:52 Elissa Garcia MD
[2020-01-02] MEDS: TICAGRELOR 90 MG TABLET PO (22:55)
[2020-01-03] VITALS (22 sets, daily range): BP systolic 94–131; BP diastolic 38–73; PULSE 92–114; RESP 17–25; TEMP 36.3–37.4; O2SAT 91–99; BMI 26.7
[2020-01-03 05:49] LABS: Absolute Lymphocyte Count 1.37 X10^3/uL (0.83-4.51); Absolute Neutrophil Count 10.6 X10^3/uL (2.0-7.7); Basophil# 0.01 X10^3/uL; Basophil% 0.1 % (0-1); Eosinophil# 0.01 X10^3/uL; Eosinophils% 0.1 % (0-5); Hematocrit 35.1 % (37-47); Hemoglobin 11.5 g/dL (12.0-15.0); Lymphocyte # 1.37 X10^3/ul (4.0); Lymphocyte % 10.4 % (19-41); Mean Corp Hgb Conc 32.8 g/dL (32-36); Mean Corpuscular Hgb 28.5 pg (27.0-32.0); Mean Corpuscular Volume 86.9 fL (81-99); Mean Platelet Vol. 10.5 fl (6.2-12.0); Monocyte# 1.22 X10^3/uL; Monocyte% 9.2 % (0-10); NRBC Flagged by Analyzer 0 % (0-5); Neutrophil # 10.56 X10^3/uL (2.7-7.7); Neutrophil % 79.8 % (47-70); Platelet Count 246 K/mm3 (150-450); RBC Distribution Width CV 13.1 % (11.6-14.6); RBC Distribution Width SD 40.8 fl (35.1-43.9); Red Blood Count 4.04 M/mm3 (4.2-5.4); White Blood Count 13.2 K/mm3 (4.4-11.0)
[2020-01-03 06:21] LABS: ALB/GLOB Ratio 0.9 RATIO (0.9-2.4); AST(SGOT) 301 U/L (15-37); Alanine Aminotransfer ALT/SGPT 50 U/L (13-56); Albumin, Serum 3.1 g/dL (3.2-5.0); Alkaline Phosphatase 65 U/L (45-117); Anion Gap 7 (5-15); BUN 14 mg/dL (7-18); BUN/Creat Ratio 19.4 RATIO (10-20); Calcium,Total 8.2 mg/dL (8.5-10.1); Chloride 110 mmol/L (98-107); Creatinine, Serum 0.72 mg/dL (0.55-1.02); EST Glomerular Filtration Rate 84 mL/min (>60); Est Glom Filt Rate - Afr Amer 102 mL/min (>60); Globulin 3.3 g/dL (2.2-4.2); Glucose 127 mg/dL (74-106); Potassium 3.3 mmol/L (3.5-5.1); Protein, Total 6.4 g/dL (6.4-8.2); Sodium Level 143 mmol/L (136-145)
--- NOTE | 2020-01-03 08:18 | CRPHASE1_ITS ---
Patient Communication PHII Cardiac Rehab Discussed with Patient:: Yes Guide to Cardiac Rehab Given to Patient:: Yes Cardiac Rehab Facility Choice List Given to Patient:: Yes - pt chooses [facility] Choice Program [facility] CR PHII:: Communication Given to CR, Refer to [facility] Hr Representative:: Bertha Garcia Phase II Cardiac Rehab:: Yes Sessions:: 36 sessions - 3 days/wk, 12 weeks Risk Factors/Lifestyle Smoking Status: Former smoker Height: 5 ft 7 in Weight:: 77.5 kg BMI: 26.7 Family History: Family History (Last Reviewed 01/02/20 @ 11:50 by LINDA Lamar) Father Heart disease Sister Heart disease Breast cancer Diabetes Brother Heart disease Alzheimer's dementia Diabetes Mother Cancer Phase I Education Given On:: [place], Nutrition, Antiplatelet medication, CHF, Smoking cessation, Diabetes - Type I, Diabetes - Type II Issues Affecting Care:: None Knowledge of Condition:: Yes Hospital Course Cardiac Cath Date:: 01/02/20 Discharge/Home/Social Eval Discharge Disposition: Home Cardiac Rehabilitation Info Cardiac Rehabilitation Program Information: Cardiac Rehabilitation is important for patients like you who are recovering from a heart problem. Cardiac rehabilitation programs are recognized as integral to the continued care of the patient with coronary heart disease. The cardiac rehabilitation program is designed to optimize a patient's physical, psychological, and social functioning. Health director of primary care work in cardiac rehabilitation programs and assist you with getting the treatments you need to get stronger and healthier - like exercise, healthy eating habits, and medications. Cardiac rehabilitation has been show to help people with heart problems live longer and have better life enjoyment than people who do not go to cardiac rehabilitation. Please contact the Cardiac Rehabilitation Program at [facility] at in two weeks if you have not heard from them.
--- NOTE | 2020-01-03 08:22 | CRPH1.INSTRU ---
General Education CAD and cardiac anatomy and function:: Patient communicates acknowledgment Explanation of diagnoses and procedures:: Patient communicates acknowledgment Sign/Symptoms of PA:: Patient communicates acknowledgment Antiplatelet therapy: Patient communicates acknowledgment Proper use of NTG-SL: Not instructed Emergency procedures and activation of EMS: Patient communicates acknowledgment Compliance of all prescribed medications: Patient communicates acknowledgment Smoking Recommendations Include:: Previous smoker; encourage continued cessation Nicotine/Smoking Response Code:: Patient communicates acknowledgment Dyslipidemia Dyslipidemia Response Code:: Patient communicates acknowledgment Overweight/Obesity Patient Overweight/Obesity Risk Factors Are:: BMI Normal [24-29 & > 65 years old] Overweight/Obesity:: Patient communicates acknowledgment Hypertension Hypertension:: Patient communicates acknowledgment Heart Disease Heart Disease Response Code:: Patient communicates acknowledgment Diabetes Diabetes:: Patient communicates acknowledgment Metabolic Syndrome Metabolic Syndrome Response Code:: Patient communicates acknowledgment Sedentary Sedentary Response Code:: Patient communicates acknowledgment Stress Stress Response Code:: Patient communicates acknowledgment
[2020-01-03] MEDS: Aspirin 81 MG TAB.CHEW PO (08:25)
[2020-01-03] MEDS: 0.9% Normal Saline 1,000 ML 75 ML IV ×2 (08:25→21:24)
--- NOTE | 2020-01-03 10:00 | EKG12_ITS ---
Test Reason : POST CATH Blood Pressure : / mmHG Vent. Rate : 098 BPM Atrial Rate : 098 BPM P-R Int : 146 ms QRS Dur : 086 ms QT Int : 342 ms P-R-T Axes : 068 078 040 degrees QTc Int : 436 ms Sinus rhythm with frequent Premature ventricular complexes Anteroseptal infarct , possibly acute Lateral injury pattern * ACUTE [place] Abnormal ECG When compared with ECG of 02-JAN-2020 19:54, MANUAL COMPARISON REQUIRED, DATA IS UNCONFIRMED Confirmed by BLADIMIR ROJO ([id number]), purchase request editor ANTHONY FOSTER ([id number]) on 01/06/2020 11:42:17 AM Referred By: EULOGIO Confirmed By:BLADIMIR ROJO
[2020-01-03] MEDS: Lisinopril 2.5 MG Tablet PO (10:06)
[2020-01-03] MEDS: Carvedilol 3.125 MG TABLET PO ×2 (10:06→21:24)
[2020-01-03] MEDS: TICAGRELOR 90 MG TABLET PO ×2 (10:06→21:24)
--- NOTE | 2020-01-03 11:14 | PCM.PN.HOSP ---
Patient Problems: Active and Suspected Problems (Last Updated 01/03/20 @ 08:33 by Vanessa Prabhakar) Atherosclerosis of coronary artery of [place] heart without angina pectoris (Acute) 4.00 x 20 mm Synergy MR JENAE to mRCA, 4.00 x 20 mm Synergy MR JENAE to mLAD 01/02/20 History of coronary artery stent placement (Acute) 4.00 x 20 mm Synergy MR JENAE to mRCA, 4.00 x 20 mm Synergy MR JENAE to mLAD 01/02/20 NSTEMI (non-ST elevated myocardial infarction) (Acute) Subjective: Patient seen and examined. He was admitted with non ST elevation MA and had cardiac cath with stent placement to the LAD and mid RCA. However after the cath, she continued having chest pain and had a repeat cardiac cath last night which showed patent coronaries. She was admitted to the ICU afterwards for closer monitoring. Patient feels well today. She did not have any chest pain since she was admitted to ICU. She denies any palpitations, shortness of breath, chest pain, nausea vomiting or diarrhea. Review of symptoms otherwise negative. Vitals/I&O's: Vital Signs Temp Pulse Resp BP Pulse Ox 97.4 F L 99 24 H 102/50 L 92 01/03/20 04:00 01/03/20 11:00 01/03/20 11:00 01/03/20 11:00 01/03/20 11:00 Oxygen Flow Rate (L/min) 2 Oxygen Delivery Method Room Air Weight: 170 lb 13.732 oz Body Mass Index (BMI) 26.3 Intake and Output for Last 24 Hours 01/01/20 01/02/20 01/03/20 23:59 23:59 23:59 Intake Total 1330.41 / 1330.41 993.54 / 993.54 Output Total 600 / 600 Balance 730.41 / 730.41 993.54 / 993.54 General: Alert, Oriented x3, Cooperative, No apparent distress HEENT: Atraumatic, PERRLA, EOMI, Normocephalic Oral: Moist Mucosa Neck: Supple, No JVD, Negative Carotid Bruits Lungs: Clear to auscultation, Normal air movement, No rhonchi, No wheeze Cardiovascular: Regular rate, Regular Rhythm, Normal S1, Normal S2, No murmurs Abdomen: Bowel Sounds Present, Soft, Non Tender, Non-Distended, No Hepato-splenomegaly Extremities: No clubbing, No cyanosis, No edema, Capillary Refill Less than 3 Seconds, - - right groin dressing clean and intact. RIght wrist dressing is intact. Skin: No rashes, No breakdown Musculoskeletal: No Tenderness to Palpation of Joints or Extremities Lymphatic: No Cervical, Supraclavicular, or Inguinal Adenopathy Neurological: Cranial nerves II-XII grossly intact, Neuro grossly intact, Motor Exam 5/5 strength throughout Psych/Mental Status: Normal Affect, Appropriate, Alert and oriented to time, place, person, mood and affect Laboratory Results 01/02/20 07:57: PT 12.9, INR 1.0, APTT 30.5 01/02/20 11:02: Troponin I 4.540 H* 01/02/20 13:35: Troponin I 6.370 H* 01/02/20 18:02: WBC 16.1 H, RBC 4.28, Hgb 12.3, Hct 38.2, MCV 89.3, MCH 28.7, MCHC 32.2, RDW Std Deviation 41.8, RDW Coeff of Vlad 12.9, Plt Count 255, MPV 10.3 01/03/20 05:35: WBC 13.2 H, RBC 4.04 L, Hgb 11.5 L, Hct 35.1 L, MCV 86.9, MCH 28.5, MCHC 32.8, RDW Std Deviation 40.8, RDW Coeff of Vlad 13.1, Plt Count 246, MPV 10.5, Immature Gran % (Auto) 0.400, Neut % (Auto) 79.8 H, Lymph % (Auto) 10.4 L, [place] % (Auto) 9.2, Eos % (Auto) 0.1, Baso % (Auto) 0.1, Absolute Neuts (auto) 10.6 H, Absolute Lymphs (auto) 1.37, Nucleated RBC % 0 01/03/20 05:35: Sodium 143, Potassium 3.3 L, Chloride 110 H, Carbon Dioxide 26.0, Anion Gap 7, BUN 14, Creatinine 0.72, Estim Creat Clear Calc 48.00, Est GFR (MDRD) Af Amer 102, Est GFR (MDRD) Non-Af 84, BUN/Creatinine Ratio 19.4, Glucose 127 H, Calcium 8.2 L, Total Bilirubin 0.50, AST 301 H, ALT 50, Alkaline Phosphatase 65, Total Protein 6.4, Albumin 3.1 L, Globulin 3.3, Albumin/Globulin Ratio 0.9 Diagnostic Data Chest X-Ray 01/02/20 07:37 IMPRESSION: Early left lung base airspace disease (potential infection) Electronically Signed: Bruce Youngblood, DO at 8:02 EDT Tel , Service support , Current Medications Aspirin (Aspirin, Baby) 81 mg PO DAILY@0800 [facility] Last Admin: 01/03/20 08:25 Dose: 81 mg Documented by: Atropine Sulfate () 0.5 mg IV UD PRN PRN Reason: HR <50 bpm Carvedilol (Coreg) 3.125 mg PO BID [facility] Last Admin: 01/03/20 10:06 Dose: 3.125 mg Documented by: Heparin Sodium (Beef Lung) (Heparin 500 Unit/5 Ml (100/Ml)) 500 unit IV UD PRN PRN Reason: HEPARIN FLUSH Sodium Chloride () 1,000 mls @ 75 mls/hr IV .[id number] [facility] Last Admin: 01/03/20 10:56 Dose: Not Given Documented by: Labetalol HCl (Trandate) 5 mg IV X1 PRN PRN Reason: SBP > 160 when pulling sheath Stop: 01/04/20 17:00 Lisinopril (Zestril) 2.5 mg PO DAILY [facility] Last Admin: 01/03/20 10:06 Dose: 2.5 mg Documented by: Morphine Sulfate () 2 mg IV Q3H PRN PRN PRN Reason: Pain Score 6-10/10 Last Admin: 01/02/20 10:51 Dose: 2 mg Documented by: Ondansetron HCl (Zofran) 4 mg IV Q8H PRN PRN PRN Reason: NAUSEA/VOMITING Last Admin: 01/02/20 22:04 Dose: 4 mg Documented by: Sodium Chloride () 10 - 40 ml IV UD PRN PRN Reason: SALINE FLUSH Last Admin: 01/02/20 10:56 Dose: 10 ml Documented by: Sodium Chloride () 500 ml IV BOLUS PRN PRN Reason: VASO-VAGAL PROTOCOL Ticagrelor (Brilinta) 90 mg PO BID MARCELLE Last Admin: 01/03/20 10:06 Dose: 90 mg Documented by: STROKE Vital Signs/Narrative: Vital Signs Pulse Resp BP Pulse Ox 01/03/20 11:00 99 24 H 102/50 L 92 01/03/20 10:00 97 23 H 107/65 93 01/03/20 09:15 91 01/03/20 09:00 102 H 20 H 120/55 L 91 01/03/20 08:00 110 H 17 113/61 95 01/03/20 07:51 95 Medical Necessity - Tobacco Use Smoking Status: Former smoker Tobacco Use: Non-smoker Assessment/Plan All Active Problems (Last Updated 01/03/20 @ 08:33 by Vanessa Prabhakar) Atherosclerosis of coronary artery of [place] heart without angina pectoris (Acute) History of coronary artery stent placement (Acute) NSTEMI (non-ST elevated myocardial infarction) (Acute) History of lymph node excision (Resolved) History of hysterectomy (Resolved) History of cholecystectomy (Resolved) 1.Nonstemi s/p cardiac cath with PCI and stent placement to mid RCA and mid LAD on aspirin, statin and brilinta. Also on statin. cardiology on board 2. Hypokalemia: Potassium is 3.3 today. Will replace and monitor. 3. Community acquired pneumonia yasmineeitn has been afebrile, and doesnt have much of a cough. She has been tachypneic since admission and respiratory rate is 24 now. She has not an elevated white cell count yesterday which was 16 and is down to 13 today. Chest x-ray on admission showed early left lung base airspace disease. will put patient on PO levofloxacin x 5 days 4. Hypertension: triamterene/HCTZ on hold. BP 102/50 this morning 5. Hyperlipidemia: on statin 6. DEEPAK: not on CPAP as she wasnt compliant with it DVT prophylaxis: lovenox Inpatient E&M: [id number] [facility] Hosp L2
[2020-01-03] MEDS: levoFLOXacin 750 MG Tablet PO (12:16)
--- NOTE | 2020-01-03 12:30 | PN.CARD_ITS ---
Subjectve: Patient feels better today. She is has some shortness of breath. No chest pain. Due to significant ST elevation on the EKG last night along with chest pain she was taken emergently to the [facility] and underwent coronary angiography which revealed widely patent stents in the LAD and RCA. Objective: Vital Signs Temp Pulse Resp BP Pulse Ox 97.8 F 105 H 18 106/39 L 94 01/03/20 12:00 01/03/20 12:00 01/03/20 12:00 01/03/20 12:00 01/03/20 12:00 Oxygen Flow Rate (L/min) 2 Oxygen Delivery Method Room Air Weight: 170 lb 13.732 oz Body Mass Index (BMI) 26.3 Intake and Output for Last 24 Hours 01/01/20 01/02/20 01/03/20 23:59 23:59 23:59 Intake Total 1330.41 / 1330.41 993.54 / 993.54 Output Total 600 / 600 Balance 730.41 / 730.41 993.54 / 993.54 General: Awake, Alert, Oriented x 3 HEENT: Atraumatic Oral: Moist Mucosa Neck: Supple Lungs: Clear to auscultation Cardiovascular: Regular Rhythm Abdomen: Soft Extremities: No edema Skin: No Rashes Psych/Mental Status: Appropriate 01/02/20 13:35: Troponin I 6.370 H* 01/02/20 18:02: WBC 16.1 H, RBC 4.28, Hgb 12.3, Hct 38.2, MCV 89.3, MCH 28.7, MCHC 32.2, Plt Count 255, MPV 10.3 01/03/20 05:35: WBC 13.2 H, RBC 4.04 L, Hgb 11.5 L, Hct 35.1 L, MCV 86.9, MCH 28.5, MCHC 32.8, Plt Count 246, MPV 10.5, Immature Gran % (Auto) 0.400, Neut % (Auto) 79.8 H, Lymph % (Auto) 10.4 L, [place] % (Auto) 9.2, Eos % (Auto) 0.1, Baso % (Auto) 0.1, Absolute Neuts (auto) 10.6 H, Nucleated RBC % 0 01/03/20 05:35: Sodium 143, Potassium 3.3 L, Chloride 110 H, Carbon Dioxide 26.0, Anion Gap 7, BUN 14, Creatinine 0.72, Est GFR (MDRD) Af Amer 102, Est GFR (MDRD) Non-Af 84, BUN/Creatinine Ratio 19.4, Glucose 127 H, Calcium 8.2 L, Total Bilirubin 0.50 Rhythm: EKG: ECHO: Stress Test: Cardiac Cath: PCI: CT Surgery: Holter monitor: EPS: PPM: CXR: Chest CT Scan: Medical Necessity - Tobacco Use Smoking Status: Former smoker Tobacco Use: Non-smoker Assessment/Plan 1. NSTEMI: Status post PCI to LAD and RCA. Doing well today. She has some shortness of breath but lungs are clear to auscultation and patient appears compensated from her LV dysfunction standpoint. Shortness of breath could be related to Brilinta. We will continue this for now to see if she gets adjusted to it. If not we may have to switch to Plavix. 2. LV dysfunction: Ischemic cardiomyopathy. She will need an echo in 3 months to evaluate her LV function to see if she requires an AICD. At this time we will continue Coreg and lisinopril.
--- NOTE | 2020-01-03 13:32 | CASEMGMT ---
RN CM Note: Pt to be on Brilinta on dc. Savings card given and explained. Pt has [place] MCR PPO and REX. Pt is aware to check cost with pharmacist for after first 30 day free and if cost issues arise to notify physician. Charles HARRISN RN ACM
--- NOTE | 2020-01-03 13:37 | CON.PCM_ITS ---
Problem List (1) NSTEMI (non-ST elevated myocardial infarction) Status: Acute Reason for Consult Date of Consultation: 01/03/20 Reason for Consultation: Non-STEMI History of Present Illness: The patient is a 74 year old F [id number] [] Past Medical History Allergies/Adverse Reactions: Allergies Sulfa (Sulfonamide Antibiotics) Adverse Reaction (Verified 01/02/20 07:26) Rash Home Medications: Ambulatory Orders Medication Instructions Recorded Simvastatin 40 mg PO DAILY 07/22/17 Ascorbic Acid [Vitamin C] 500 mg PO DAILY@0800 01/02/20 Aspirin [Aspirin, Baby] 81 mg PO DAILY@0800 01/02/20 Cholecalciferol (VIT D3) [Vitamin 1,000 unit PO DAILY 01/02/20 D] Polyethylene Glycol 3350 [Miralax] 0.5 packet PO DAILY 01/02/20 Triamterene/Hydrochlorothiazid 1 cap PO DAILY 01/02/20 [Triamterene-Hctz 37.5-25 mg Cp] Umeclidinium Brm/Vilanterol Tr 1 ea IH DAILY 01/02/20 [Anoro Ellipta 62.5-25 Mcg INH] Past Medical History (Chronic Problems): Chronic Problems (Last Updated 01/03/20 @ 08:33 by Vanessa Prabhakar) HTN (hypertension) (Chronic) HLD (hyperlipidemia) (Chronic) Stage 2 moderate COPD by GOLD classification (Chronic) FEV1 67% Dyspnea (Chronic) Lung nodule (Chronic) Periodic limb movement (Chronic) DEEPAK (obstructive sleep apnea) (Chronic) Noncompliant with therapy Surgical History: cholecystectomy, hysterectomy Psychiatric History: 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 - *Family History Maternal Family History: Family History (Last Reviewed 01/02/20 @ 11:50 by LINDA Lamar) Father Heart disease Sister Heart disease Breast cancer Diabetes Brother Heart disease Alzheimer's dementia Diabetes Mother Cancer Lives: Spouse/ Significant Other Smoking Status: Former smoker Tobacco Use: Non-smoker Alcohol: None Drugs: None Review of Systems - Review of Systems General: Denies: Fever, Night Sweats, Fatigue Cardiovascular: Denies: Chest Discomfort, Shortness of Breath, Orthopnea, PND, Peripheral Edema, Palpitations, Lightheadedness, Dizziness, Near Syncope, Syncope Respiratory: Denies: Cough, Sputum Production, Hemoptysis Gastrointestinal: Denies: Hematemesis, Hematochezia, Melena Genitourinary: Denies: Dysuria, Hematuria Skin: Denies: Rash Objective: Vital Signs Temp Pulse Resp BP Pulse Ox 98.9 F 104 H 18 94/38 L 96 01/03/20 12:44 01/03/20 12:44 01/03/20 12:44 01/03/20 12:44 01/03/20 12:44 Oxygen Flow Rate (L/min) 2 Oxygen Delivery Method Nasal Cannula Weight: 170 lb 13.732 oz Body Mass Index (BMI) 26.3 Intake and Output for Last 24 Hours 01/01/20 01/02/20 01/03/20 23:59 23:59 23:59 Intake Total 1330.41 / 1330.41 1393.54 / 1393.54 Output Total 600 / 600 500 / 500 Balance 730.41 / 730.41 893.54 / 893.54 General: Awake, Alert, Oriented x 3 HEENT: PERRL, EOMI, Sclera Non Icteric Neck: Supple, Good ROM, No Lymph Node Enlargement Lungs: Clear to auscultation Cardiovascular: Regular Rhythm, Normal S1, Normal S2, No Murmurs, No Rubs, No Gallops Vascular: No Carotid Bruits, Normal Femoral Pulses, Normal Radial Pulses, Normal Dorsalis Pedal Pulse, Normal Posterior Tibial Pulses Abdomen: Bowel Sounds Present, Soft, Non Tender, No HSM, No Organomegaly Extremities: No Cyanosis, No Clubbing, No edema Neurological: No Focal Motor or Sensory Deficit 01/02/20 13:35: Troponin I 6.370 H* 01/02/20 18:02: WBC 16.1 H, RBC 4.28, Hgb 12.3, Hct 38.2, MCV 89.3, MCH 28.7, MCHC 32.2, Plt Count 255, MPV 10.3 01/03/20 05:35: WBC 13.2 H, RBC 4.04 L, Hgb 11.5 L, Hct 35.1 L, MCV 86.9, MCH 28.5, MCHC 32.8, Plt Count 246, MPV 10.5, Immature Gran % (Auto) 0.400, Neut % (Auto) 79.8 H, Lymph % (Auto) 10.4 L, [place] % (Auto) 9.2, Eos % (Auto) 0.1, Baso % (Auto) 0.1, Absolute Neuts (auto) 10.6 H, Nucleated RBC % 0 01/03/20 05:35: Sodium 143, Potassium 3.3 L, Chloride 110 H, Carbon Dioxide 26.0, Anion Gap 7, BUN 14, Creatinine 0.72, Est GFR (MDRD) Af Amer 102, Est GFR (MDRD) Non-Af 84, BUN/Creatinine Ratio 19.4, Glucose 127 H, Calcium 8.2 L, Total Bilirubin 0.50 Rhythm: EKG: ECHO: Stress Test: Cardiac Cath: PCI: CT Surgery: Holter monitor: EPS: PPM: CXR: Chest CT Scan:
[2020-01-03] MEDS: Furosemide 20 MG/2 ML VIAL IV (14:18)
[2020-01-04] VITALS (8 sets, daily range): BP systolic 103–133; BP diastolic 45–66; PULSE 82–131; RESP 16; TEMP 36.7–37; O2SAT 94–98
--- NOTE | 2020-01-04 04:56 | EKG12_ITS ---
Test Reason : AM EKG Blood Pressure : / mmHG Vent. Rate : 094 BPM Atrial Rate : 094 BPM P-R Int : 164 ms QRS Dur : 084 ms QT Int : 372 ms P-R-T Axes : 063 040 085 degrees QTc Int : 465 ms Sinus rhythm with Premature atrial complexes Anteroseptal infarct , possibly acute ACUTE [place] / STEMI Abnormal ECG Confirmed by VAMSHI SPAULDING, LADI ([id number]), desk editor ASAEL HESTER ([id number] on 01/07/2020 10:01:57 AM Referred By: JODY Confirmed By:LADI BONDS MD
[2020-01-04 05:55] LABS: Hematocrit 30.9 % (37-47); Hemoglobin 9.8 g/dL (12.0-15.0); Mean Corp Hgb Conc 31.7 g/dL (32-36); Mean Corpuscular Hgb 28.6 pg (27.0-32.0); Mean Corpuscular Volume 90.1 fL (81-99); Mean Platelet Vol. 10.6 fl (6.2-12.0); Platelet Count 200 K/mm3 (150-450); RBC Distribution Width CV 13.2 % (11.6-14.6); RBC Distribution Width SD 43.4 fl (35.1-43.9); Red Blood Count 3.43 M/mm3 (4.2-5.4); White Blood Count 9.1 K/mm3 (4.4-11.0)
[2020-01-04] MEDS: levoFLOXacin 750 MG Tablet PO (06:06)
[2020-01-04 06:23] LABS: Anion Gap 5 (5-15); BUN 16 mg/dL (7-18); Chloride 113 mmol/L (98-107); EST Glomerular Filtration Rate 74 mL/min (>60); Est Glom Filt Rate - Afr Amer 90 mL/min (>60); Glucose 104 mg/dL (74-106); Potassium 3.5 mmol/L (3.5-5.1); Sodium Level 144 mmol/L (136-145)
[2020-01-04] MEDS: TICAGRELOR 90 MG TABLET PO (09:08)
[2020-01-04] MEDS: Aspirin 81 MG TAB.CHEW PO (09:08)
[2020-01-04] MEDS: Carvedilol 3.125 MG TABLET PO (09:08)
[2020-01-04] MEDS: Lisinopril 2.5 MG Tablet PO (09:08)
--- NOTE | 2020-01-04 10:00 | EKG12_ITS ---
Test Reason : AM Blood Pressure : / mmHG Vent. Rate : 096 BPM Atrial Rate : 096 BPM P-R Int : 166 ms QRS Dur : 088 ms QT Int : 358 ms P-R-T Axes : 068 064 066 degrees QTc Int : 452 ms Normal sinus rhythm Anteroseptal infarct , possibly acute Lateral injury pattern * ACUTE [place] Abnormal ECG When compared with ECG of 02-JAN-2020 21:52, MANUAL COMPARISON REQUIRED, DATA IS UNCONFIRMED Confirmed by BLADIMIR ROJO ([id number]), editor producer ANTHONY FOSTRE ([id number]) on 01/06/2020 11:44:25 AM Referred By: PEDRO Confirmed By:BLADIMIR ROJO
--- NOTE | 2020-01-04 11:18 | PCM.DC ---
- Discharge Diagnoses Current Active Problems: Current Active and Chronic Problems (Last Updated 01/03/20 @ 08:33 by Vanessa Prabhakar) Atherosclerosis of coronary artery of [place] heart without angina pectoris (Acute) 4.00 x 20 mm Synergy MR JENAE to mRCA, 4.00 x 20 mm Synergy MR JENAE to mLAD 01/02/20 History of coronary artery stent placement (Acute) 4.00 x 20 mm Synergy MR JENAE to mRCA, 4.00 x 20 mm Synergy MR JENAE to mLAD 01/02/20 NSTEMI (non-ST elevated myocardial infarction) (Acute) HTN (hypertension) (Chronic) HLD (hyperlipidemia) (Chronic) You will use the following diet at home:: Cardiac Your food should be the consistency of: Regular Your liquids should be the consistency of: Regular/Thin Discharge Activity: Return to Normal Activity Weight Bearing Status: Weight bearing as tolerated Call your doctor if you observe: Fever of 101 or Higher, Shortness of breath, Dizziness, Swelling in the ankles, Chest pain, Increased palpitations (irregular heartbeat) Instructions: Lipid Panel, Understanding Coronary Artery Disease (CAD), Symptoms of a Heart Attack, Warning Signs of a Heart Attack, Tips for Taking Medications, Medications for Heart Disease, Exercising After a Heart Attack, Getting Started With Cardiac Rehab: Exercise Allergies/Adverse Reactions: Allergies Sulfa (Sulfonamide Antibiotics) Adverse Reaction (Verified 01/02/20 07:26) Rash Medications to take at Discharge Ascorbic Acid [Vitamin C] 500 mg PO DAILY@0800 01/02/20 Aspirin [Aspirin, Baby] 81 mg PO DAILY@0800 01/02/20 Cholecalciferol (VIT D3) [Vitamin D3] 1,000 unit PO DAILY 01/02/20 Polyethylene Glycol 3350 [Miralax] 0.5 packet PO DAILY 01/02/20 Umeclidinium Brm/Vilanterol Tr [Anoro Ellipta 62.5-25 Mcg INH] 1 ea IH DAILY 01/02/20 Atorvastatin Calcium 40 mg PO QHS #30 tab 01/04/20 Carvedilol 6.25 mg PO BID #60 tab 01/04/20 Lisinopril [Zestril] 2.5 mg PO DAILY #30 tab 01/04/20 Spironolactone 25 mg PO DAILY 1 Days #30 tab 01/04/20 Ticagrelor [Brilinta] 90 mg PO BID #60 tab 01/04/20 levoFLOXacin tablet [Levaquin tablet] 750 mg PO DAILY@0600 #4 tab 01/04/20 The following prescriptions were given: Atorvastatin Calcium 40 mg PO QHS #30 tab Transmission Status: Received by [facility] [id number] Ticagrelor [Brilinta] 90 mg PO BID #60 tab Transmission Status: Sent to [facility] 181 Carvedilol 6.25 mg PO BID #60 tab Transmission Status: Sent to [facility] 181 levoFLOXacin tablet [Levaquin tablet] 750 mg PO DAILY@0600 #4 tab Transmission Status: Received by [facility] 181 Spironolactone 25 mg PO DAILY 1 Days #30 tab Transmission Status: Sent to [facility] 181 Lisinopril [Zestril] 2.5 mg PO DAILY #30 tab Transmission Status: Received by [facility] 181 Orders to be completed after discharge: Phase II, Outpatient Cardiac Rehab Location: None Selected Primary Care Physician: MAYELIN CALL [Other] Please follow up with your Primary Care Physician in: one week Test Results: Test results from this visit will be discussed in further detail at your follow-up appointment, if applicable. Please Follow Up With: Bertha Garcia MD When: 1-2 weeks Proposed Discharge Date: 01/04/20
--- NOTE | 2020-01-04 11:26 | PCM.DC.SUM ---
Discharge Date and Diagnosis Date of Admission: 01/02/20 Date of Discharge: 01/04/20 - Primary Discharge Diagnosis Active and Suspected Problems (Last Updated 01/03/20 @ 08:33 by Vanessa Prabhakar) Atherosclerosis of coronary artery of [place] heart without angina pectoris (Acute) 4.00 x 20 mm Synergy MR JENAE to mRCA, 4.00 x 20 mm Synergy MR JENAE to mLAD 01/02/20 History of coronary artery stent placement (Acute) 4.00 x 20 mm Synergy MR JENAE to mRCA, 4.00 x 20 mm Synergy MR JENAE to mLAD 01/02/20 NSTEMI (non-ST elevated myocardial infarction) (Acute) - Secondary Discharge Diagnosis Chronic Problems (Last Updated 01/03/20 @ 08:33 by Vanessa Prabhakar) HTN (hypertension) (Chronic) HLD (hyperlipidemia) (Chronic) Stage 2 moderate COPD by GOLD classification (Chronic) FEV1 67% Dyspnea (Chronic) Lung nodule (Chronic) Periodic limb movement (Chronic) DEEPAK (obstructive sleep apnea) (Chronic) Noncompliant with therapy Hospital Course and Treatment Imaging Results: Diagnostic Data Chest X-Ray 01/02/20 07:37 IMPRESSION: Early left lung base airspace disease (potential infection) Electronically Signed: Bruce Youngblood DO at 8:02 EDT Tel , Service support , cardiology- Dr Garcia Operations: None Procedures: 2-D Echocardiogram, Cardiac catheterization Summary of Care Provided: The patient is a 74 year old F with a past medical history as outlined was admitted through the ED on 01/02/2020. She was admitted with a complaint of chest pain. She states symptoms had started 3 days prior with shortness of breath and thought his COPD was acting up but she subsequently started having chest pain with midsternal chest pressure. On admission in the ED, EKG showed no acute ST changes. Initial troponin was elevated at 3.8 and trended up to 5.4. She had cardiac cath on 01/02/2020 which showed two-vessel coronary artery disease with successful PCI of mid LAD and mid RCA with drug-eluting stents. She also had severe left ventricular systolic dysfunction with EF of 25 to 30% and severe anterior and apical hypokinesis. Patient subsequently continued having chest pain after cardiac cath and had a repeat cardiac cath to assess if the stents were open. Stents were widely patent. She was transferred to the ICU for closer monitoring. Patient remained stable and was transferred out of the ICU to the progressive care unit. Patient was discharged home on 01/04/2020. Her Maxide was discontinued and with a heart rate being up in the 90s, cardiology recommended that patient's carvedilol be increased to 6.25 mg twice daily. She was also on lisinopril 2.5 mg daily. Per cardiology recommendations, she was also started on spironolactone 25 mg daily on account of a EF of 25 to 30%. She is to follow-up with her primary care doctor and with cardiology within 1 to 2 weeks. She was also sent home with a prescription for Brilinta. Patient seen and examined prior to discharge. She felt better and had no complaints. Review of signs otherwise negative. Labs and vitals reviewed. Home medication reviewed and reconciled. o/e: Vital Signs Height 5 ft 7 in Weight: 173 lb 1.006 oz Weight in Pounds 173.1 lbs BMI 26.7 Pulse Ox [AMBULATING on Room 97 Air] Pulse Ox [At REST on Room Air] 97 Pulse Ox 98 Temperature 98.1 F Pulse Rate 82 Respiratory Rate 16 Blood Pressure [BP] 111/49 Blood Pressure 118/66 Blood Pressure Position [BP] Semi-Fowlers Blood Pressure Position Sitting [] General: Alert, Oriented x3, Cooperative, No apparent distress HEENT: Atraumatic, PERRLA, EOMI, Normocephalic Oral: Moist Mucosa Neck: Supple, No JVD, Negative Carotid Bruits Lungs: Clear to auscultation, Normal air movement, No rhonchi, No wheeze Cardiovascular: Regular rate, Regular Rhythm, Normal S1, Normal S2, No murmurs Abdomen: Bowel Sounds Present, Soft, Non Tender, Non-Distended, No Hepato-splenomegaly Extremities: No clubbing, No cyanosis, No edema, Capillary Refill Less than 3 Seconds, - - right groin dressing clean and intact. RIght wrist dressing is intact. Skin: No rashes, No breakdown Musculoskeletal: No Tenderness to Palpation of Joints or Extremities Lymphatic: No Cervical, Supraclavicular, or Inguinal Adenopathy Neurological: Cranial nerves II-XII grossly intact, Neuro grossly intact, Motor Exam 5/5 strength throughout Psych/Mental Status: Normal Affect, Appropriate, Alert and oriented to time, place, person, mood and affect Plan as above. - Physical Exam Vitals/I&O's: Vital Signs Temp Pulse Resp BP Pulse Ox 98.1 F 94 16 133/45 H 94 01/04/20 09:03 01/04/20 09:03 01/04/20 09:03 01/04/20 09:03 01/04/20 09:03 Oxygen Flow Rate (L/min) 2 Oxygen Delivery Method Room Air Weight: 173 lb 1.006 oz Body Mass Index (BMI) 26.3 Intake and Output for Last 24 Hours 01/02/20 01/03/20 01/04/20 23:59 23:59 23:59 Intake Total 1330.41 / 1330.41 2897.29 / 2897.29 501.25 / 501.25 Output Total 600 / 600 500 / 500 Balance 730.41 / 730.41 2397.29 / 2397.29 501.25 / 501.25 Laboratory Results 01/04/20 05:26: WBC 9.1, RBC 3.43 L, Hgb 9.8 L, Hct 30.9 L, MCV 90.1, MCH 28.6, MCHC 31.7 L, RDW Std Deviation 43.4, RDW Coeff of Vlad 13.2, Plt Count 200, MPV 10.6 01/04/20 05:26: Sodium 144, Potassium 3.5, Chloride 113 H, Carbon Dioxide 26.0, Anion Gap 5, BUN 16, Creatinine 0.80, Estim Creat Clear Calc 60.00, Est GFR (MDRD) Af Amer 90, Est GFR (MDRD) Non-Af 74, BUN/Creatinine Ratio 20.0, Glucose 104, Calcium 8.0 L Current Medications Aspirin (Aspirin, Baby) 81 mg PO DAILY@0800 [facility] Last Admin: 01/04/20 09:08 Dose: 81 mg Documented by: Atropine Sulfate () 0.5 mg IV UD PRN PRN Reason: HR <50 bpm Carvedilol (Coreg) 3.125 mg PO BID [facility] Last Admin: 01/04/20 09:08 Dose: 3.125 mg Documented by: Heparin Sodium (Beef Lung) (Heparin 500 Unit/5 Ml (100/Ml)) 500 unit IV UD PRN PRN Reason: HEPARIN FLUSH Labetalol HCl (Trandate) 5 mg IV X1 PRN PRN Reason: SBP > 160 when pulling sheath Stop: 01/04/20 17:00 Levofloxacin (Levaquin Tablet) 750 mg PO DAILY@0600 [facility] Last Admin: 01/04/20 06:06 Dose: 750 mg Documented by: Lisinopril (Zestril) 2.5 mg PO DAILY [facility] Last Admin: 01/04/20 09:08 Dose: 2.5 mg Documented by: Morphine Sulfate () 2 mg IV Q3H PRN PRN PRN Reason: Pain Score 6-10/10 Last Admin: 01/02/20 10:51 Dose: 2 mg Documented by: Ondansetron HCl (Zofran) 4 mg IV Q8H PRN PRN PRN Reason: NAUSEA/VOMITING Last Admin: 01/02/20 22:04 Dose: 4 mg Documented by: Sodium Chloride () 10 - 40 ml IV UD PRN PRN Reason: SALINE FLUSH Last Admin: 01/02/20 10:56 Dose: 10 ml Documented by: Sodium Chloride () 500 ml IV BOLUS PRN PRN Reason: VASO-VAGAL PROTOCOL Ticagrelor (Brilinta) 90 mg PO BID [facility] Last Admin: 01/04/20 09:08 Dose: 90 mg Documented by: Discharge Diet: Low fat/ Low Cholesterol Discharge Activity: Return to Normal Activity Weight Bearing Status: Weight bearing as tolerated Call your doctor if you observe: Fever of 101 or Higher, Shortness of breath, Dizziness, Swelling in the ankles, Chest pain, Increased palpitations (irregular heartbeat) Home Medications: Medications to take at Discharge Ascorbic Acid [Vitamin C] 500 mg PO DAILY@0800 01/02/20 Aspirin [Aspirin, Baby] 81 mg PO DAILY@0800 01/02/20 Cholecalciferol (VIT D3) [Vitamin D3] 1,000 unit PO DAILY 01/02/20 Polyethylene Glycol 3350 [Miralax] 0.5 packet PO DAILY 01/02/20 Umeclidinium Brm/Vilanterol Tr [Anoro Ellipta 62.5-25 Mcg INH] 1 ea IH DAILY 01/02/20 Atorvastatin Calcium 40 mg PO QHS #30 tab 01/04/20 Carvedilol 6.25 mg PO BID #60 tab 01/04/20 Lisinopril [Zestril] 2.5 mg PO DAILY #30 tab 01/04/20 Spironolactone 25 mg PO DAILY 1 Days #30 tab 01/04/20 Ticagrelor [Brilinta] 90 mg PO BID #60 tab 01/04/20 levoFLOXacin tablet [Levaquin tablet] 750 mg PO DAILY@0600 #4 tab 01/04/20 Following Prescrptions Were Given to Patient: Atorvastatin Calcium 40 mg PO QHS #30 tab Transmission Status: Received by [facility] 1812 Ticagrelor [Brilinta] 90 mg PO BID #60 tab Transmission Status: Received by [facility] 1812 Carvedilol 6.25 mg PO BID #60 tab Transmission Status: Received by [facility] 1812 levoFLOXacin tablet [Levaquin tablet] 750 mg PO DAILY@0600 #4 tab Transmission Status: Received by [facility] 181 Spironolactone 25 mg PO DAILY 1 Days #30 tab Transmission Status: Received by [facility] 1812 Lisinopril [Zestril] 2.5 mg PO DAILY #30 tab Transmission Status: Received by [facility] 1812 Other Amb Orders: Phase II, Outpatient Cardiac Rehab Location: None Selected Primary Care Physician: MAYELIN CALL [Other] Please follow up with your Primary Care Physician in: one week Please Follow Up With: Bertha Garcia MD When: 1-2 weeks Patient Instructions: Lipid Panel, Symptoms of a Heart Attack, Understanding Coronary Artery Disease (CAD), Getting Started With Cardiac Rehab: Exercise, Exercising After a Heart Attack, Tips for Taking Medications, Medications for Heart Disease, Warning Signs of a Heart Attack Disposition: Home Minutes spent on discharge:: 45 Patient Condition:: Stable Medical Necessity - Tobacco Use Smoking Status: Former smoker Tobacco Use: Non-smoker Meaningful Use Info Meaningful Use Diagnoses (Choose all that apply): AMI - AMI/Post PCI/Angioplasty Aspirin given w/in 24hrs of arrival?: Yes ASA at discharge?: Yes Antiplatelet Therapy at Discharge:: Yes Statins at discharge?: Yes Frankie/ARB at discharge?: Yes Beta Audrey at discharge?: Yes Done w/ Acute ME measure.: Yes Documented LVEF (%): 30 Inpatient E&M: [id number] Disch Hosp
--- NOTE | 2020-01-04 11:28 | PCM.PN.CARD ---
Subjectve: 74-year-old white female 2 days ago was admitted for non-STEMI. She was treated with stenting of the left anterior descending and right coronary artery for complete revascularization. Postoperatively patient developed chest pain and ST elevations in the anterior leads. Repeat cardiac catheterization showed patent left anterior descending stent and patent right coronary artery stent. Patient was treated medically. Overnight patient denies any chest pain or shortness of breath. She has been sleeping on one pillow with no PND or orthopnea. There has been frequent PACs. Heart rates at 94 bpm with irregularity. Lab work is reasonable with exceptions of potassium being 3.5 Objective: Vital Signs Temp Pulse Resp BP Pulse Ox 98.1 F 94 16 133/45 H 94 01/04/20 09:03 01/04/20 09:03 01/04/20 09:03 01/04/20 09:03 01/04/20 09:03 Oxygen Flow Rate (L/min) 2 Oxygen Delivery Method Room Air Weight: 173 lb 1.006 oz Body Mass Index (BMI) 26.3 Intake and Output for Last 24 Hours 01/02/20 01/03/20 01/04/20 23:59 23:59 23:59 Intake Total 1330.41 / 1330.41 2897.29 / 2897.29 501.25 / 501.25 Output Total 600 / 600 500 / 500 Balance 730.41 / 730.41 2397.29 / 2397.29 501.25 / 501.25 General: Awake, Alert, Oriented x 3 HEENT: PERRL, EOMI, Sclera Non Icteric Neck: Supple, Good ROM, No Lymph Node Enlargement Lungs: Clear to auscultation Cardiovascular: Regular Rhythm - Sinus rhythm with frequent PACs, Irregular Rhythm, Normal S1, Normal S2, No Murmurs, No Rubs, No Gallops Vascular: No Carotid Bruits, Normal Femoral Pulses, Normal Radial Pulses, Normal Dorsalis Pedal Pulse, Normal Posterior Tibial Pulses Abdomen: Bowel Sounds Present, Soft, Non Tender, No HSM, No Organomegaly Extremities: No Cyanosis, No Clubbing, No edema Neurological: No Focal Motor or Sensory Deficit 01/04/20 05:26: WBC 9.1, RBC 3.43 L, Hgb 9.8 L, Hct 30.9 L, MCV 90.1, MCH 28.6, MCHC 31.7 L, Plt Count 200, MPV 10.6 01/04/20 05:26: Sodium 144, Potassium 3.5, Chloride 113 H, Carbon Dioxide 26.0, Anion Gap 5, BUN 16, Creatinine 0.80, Est GFR (MDRD) Af Amer 90, Est GFR (MDRD) Non-Af 74, BUN/Creatinine Ratio 20.0, Glucose 104, Calcium 8.0 L Rhythm: Frequent PACs EKG: Persistent ST elevation in the anterior leads ECHO: Ejection fraction between 30 to 35% Stress Test: Cardiac Cath: PCI: CT Surgery: Holter monitor: EPS: PPM: CXR: Chest CT Scan: Medical Necessity - Tobacco Use Smoking Status: Former smoker Tobacco Use: Non-smoker Assessment/Plan #1 non-STEMI treated with stenting of the left anterior descending complicated probably by distal embolization with persistent ST elevation in the anterior leads. At the moment, patient does not have any chest pain or shortness of breath. There has been frequent PACs with no PVCs. Potassium is 3.5. Heart rate is 94 bpm with systolic blood pressure 130. At this point I would recommend the following: Replace potassium, start Spironolactone 25 mg daily, beta-mercedez to be increased to carvedilol 6.25 mg twice a day. I have discussed with Dr. Garcia yesterday during sign off concerning LifeVest since the ejection fraction was between 30% and 35%, his opinion is that patient does not needed at this point. About the Brilinta, we should continue the Brilinta especially there is distal embolization in the microvasculature of the left anterior descending. Patient's shortness of breath has disappeared. I have no objections sending her home after ambulation in the hallway
== END 2020-01-04 14:04 | disposition home or self-care (01) | DRG 246 ==
LOC: ED 08:50 → PCU 09:10 → ICU 22:19 → PCU 01-04 14:03
PROVIDERS: Specialist; Admitting Provider Family Medicine; Emergency Provider Emergency Medicine; Visit Provider Student in an Organized Health Care Education/Training Program
DX: I21.4 Non-ST elevation (NSTEMI) myocardial infarction (principal); J18.9 Pneumonia, unspecified organism; J44.0 Chronic obstructive pulmonary disease with (acute) lower respiratory infection; I25.10 Atherosclerotic heart disease of native coronary artery without angina pectoris; E87.6 Hypokalemia; E78.5 Hyperlipidemia, unspecified; I10 Essential (primary) hypertension; G47.33 Obstructive sleep apnea (adult) (pediatric); Z95.5 Presence of coronary angioplasty implant and graft; Z87.891 Personal history of nicotine dependence; Z82.49 Family history of ischemic heart disease and other diseases of the circulatory system; Z91.19 Patient's noncompliance with other medical treatment and regimen
CPT/HCPCS: 36415; 71045; 80048; 80053; 84484; 85025; 85027; 85610; 85730; 92928; 93005; 93458; 97802; 99152; 99153; 99251; 99285; J7030; J7040; Q9967; A4216; C1725; C1757; C1760; C1769; C1874; C1887; C1894; C9600; G0463; J1327; J1940; J2405

== ENCOUNTER → 2020-01-09 07:41 | Outpatient (CLI) | payer MEDICARE, SELFPAY ==
[2020-01-02 10:10] VITALS: BMI 26.3
[2020-01-03 08:21] VITALS: BMI 26.7
[2020-01-09 10:09] LABS: Absolute Lymphocyte Count 1.58 X10^3/uL (0.83-4.51); Basophil# 0.03 X10^3/uL; Basophil% 0.3 % (0-1); Eosinophil# 0.19 X10^3/uL; Hematocrit 32.4 % (37-47); Hemoglobin 10.5 g/dL (12.0-15.0); Lymphocyte # 1.58 X10^3/ul (4.0); Lymphocyte % 16.6 % (19-41); Mean Corp Hgb Conc 32.4 g/dL (32-36); Mean Corpuscular Hgb 28.5 pg (27.0-32.0); Mean Platelet Vol. 10.9 fl (6.2-12.0); Monocyte# 0.68 X10^3/uL; Monocyte% 7.2 % (0-10); NRBC Flagged by Analyzer 0 % (0-5); Neutrophil # 6.97 X10^3/uL (2.7-7.7); Neutrophil % 73.5 % (47-70); Platelet Count 313 K/mm3 (150-450); RBC Distribution Width CV 13.2 % (11.6-14.6); RBC Distribution Width SD 42.5 fl (35.1-43.9); Red Blood Count 3.68 M/mm3 (4.2-5.4); White Blood Count 9.5 K/mm3 (4.4-11.0)
[2020-01-09 10:10] LABS: BNP,B-Type NATRIURETIC PEPTIDE 1351.3 pg/mL (0-100)
[2020-01-09 10:13] LABS: Anion Gap 9 (5-15); BUN 15 mg/dL (7-18); BUN/Creat Ratio 17.4 RATIO (10-20); Calcium,Total 8.9 mg/dL (8.5-10.1); Chloride 106 mmol/L (98-107); Creatinine, Serum 0.86 mg/dL (0.55-1.02); EST Glomerular Filtration Rate 68 mL/min (>60); Est Glom Filt Rate - Afr Amer 83 mL/min (>60); Glucose 117 mg/dL (74-106); Potassium 3.6 mmol/L (3.5-5.1); Sodium Level 140 mmol/L (136-145)
== END ==
PROVIDERS: Referring Provider Physician Assistant Medical; Visit Provider Physician Assistant Medical
DX: I25.10 Atherosclerotic heart disease of native coronary artery without angina pectoris (principal); R06.00 Dyspnea, unspecified
CPT/HCPCS: 36415; 80048; 83880; 85025

== ENCOUNTER → 2020-04-06 13:44 | Outpatient (CLI) | payer MEDICARE, SELFPAY ==
[2020-01-02 10:10] VITALS: BMI 26.3
[2020-01-03 08:21] VITALS: BMI 26.7
[2020-01-20 09:56] VITALS: BMI 25.8
--- NOTE | 2020-04-06 13:47 | ECHOCS_ITS ---
Reason For Study: LV DYSFUNCTION Procedure This was a 2D Doppler, Color Flow transthoracic echocardiogram. The study was technically difficult. Due to body habitus. Contrast injection was performed. Exam performed in department. Left Ventricle Normal LV size. The estimated ejection fraction is 40-45 %. Stage 2 diastolic dysfunction. Anterior and apical hypokinesis. Right Ventricle Normal RV size. Normal systolic function. Atria Normal left atrium. Normal right atrium. No doppler evidence for ASD. Mitral Valve There is no mitral valve stenosis. No mitral valve insufficiency. Tricuspid Valve There is no tricuspid stenosis. Mild tricuspid valve insufficiency. Pulmonary artery systolic pressure is 30-35 mmHg. Aortic Valve Aortic sclerosis, no stenosis. Trisinus/trileaflet aortic valve. There is no aortic stenosis. Mild (1+) aortic valve insufficiency. Pulmonic Valve There is no pulmonic valvular stenosis. No pulmonic valve insufficiency. Great Vessels Normal aortic root. Pericardium/Pleural No pericardial effusion. MMode/2D Measurements & Calculations LVIDd: 5.1 cm IVSd: 1.2 cm LVOT diam: 2.0 cm LVIDs: 3.6 cm LVPWd: 1.2 cm LVOT area: 3.3 cm2 RVDd: 2.9 cm FS: 30.4 % Ao root diam: 3.0 cm LAV(MOD-bp): 68.2 ml LA A4 area: 18.6 cm2 LAV(MOD-bp) Indexed: 36.2 ml/m2 LAV(MOD-sp2): 61.1 ml LAV(MOD-sp4): 62.4 ml LA dimension(2D): 3.4 cm RA A4 area: 11.8 cm2 Doppler Measurements & Calculations MV E max escobar: 68.8 cm/sec Lat Peak E' Escobar: 4.1 cm/sec Med Peak E' Escobar: 4.3 cm/sec MV A max escobar: 116.2 cm/sec E/E' lat: 16.9 E/E' med: 16.1 MV E/A: 0.59 Ao V2 max: 189.6 cm/sec AI max escobar: 352.1 cm/sec LV V1 max: 106.9 cm/sec Ao max P.4 mmHg AI max P.6 mmHg LV V1 max P.6 mmHg Ao V2 mean: 118.5 cm/sec AI dec slope: 256.4 cm/sec2 LV V1 mean P.3 mmHg Ao mean P.5 mmHg AI P1/2t: 402.2 msec LV V1 mean: 73.0 cm/sec Ao V2 VTI: 35.6 cm LV V1 VTI: 22.6 cm CORAZON(I,D): 2.1 cm2 CORAZON(V,D): 1.8 cm2 SV(LVOT): 73.9 ml PA V2 max: 109.1 cm/sec TR max escobar: 254.8 cm/sec TR max P.0 mmHg Interpretation Summary The estimated ejection fraction is 40-45 %. Stage 2 diastolic dysfunction. Anterior and apical hypokinesis Mild tricuspid valve insufficiency. Mild (1+) aortic valve insufficiency. The study was technically difficult. Contrast injection was performed. Ordering Physician: Bertha Garcia Referring Physician: MILADY CALL Performed By: Nikia Penn RVT, RDCS and Student
== END ==
DX: I42.0 Dilated cardiomyopathy (principal); I25.10 Atherosclerotic heart disease of native coronary artery without angina pectoris
CPT/HCPCS: 93306; Q9957; A4216; C8929

== ENCOUNTER 2020-10-24 12:14 | Inpatient (IN) | payer MEDICARE, MEDICAID, SELFPAY ==
[2020-01-03 08:21] VITALS: BMI 26.7
[2020-09-02 13:12] VITALS: BMI 27.3
[2020-10-24] VITALS (13 sets, daily range): BP systolic 142–173; BP diastolic 59–74; PULSE 65–86; RESP 16–20; TEMP 36.5–36.9; O2SAT 94–99; BMI 28.4; BMI 27.3; BMI 27.4
--- NOTE | 2020-10-24 12:28 | RAD_ITS ---
STUDY: X-RAY CHEST REASON FOR EXAM: Female, 75 years old. HTN TECHNIQUE: Frontal view of the chest COMPARISON: 02 January 2020 FINDINGS: The lungs are clear and expanded. There is no demonstrated pleural abnormality. Normal size heart. Normal mediastinum and slava. Normal visualized pulmonary arteries. Normal visualized aortic arch and descending thoracic aorta. Normal visualized thoracic spine. Normal visualized ribs, clavicles, and shoulders. There is no demonstrated abnormality of the visualized soft tissue structures of the upper abdomen. RAD/Chest 1 View (Portable) IMPRESSION: Normal x-ray examination of the chest. Electronically Signed: Miguelangel Davidson, at 13:27 EST Tel , Service support ,
--- NOTE | 2020-10-24 12:29 | ED.VISSUMM ---
- ER Visit Summary Date of Service: 10/24/20 Chief Complaint: [Left eye vision loss] History of Present Illness: The patient is a 75 F [presents to the emergency department from ophthalmology office with complaint of left vision loss that started yesterday around 2 PM. Patient describes decreased vision in the inferior medial quadrant of her left thigh. Patient denies any headache or difficulty with speech. She denies any weakness in the extremities. She denies difficulty with balance. Ophthalmology saw her today and there was concern that patient would need to have stroke work-up given that she was noted to have a retinal artery occlusion. Patient does have history of coronary artery disease and had an [place] in December 2019 with a stent placed. Patient has not had prior stroke. She is currently on aspirin and Plavix.] Physical Examination: [HEENT-PERRLA, EOMI. Cranial nerves II through XII grossly intact. TMs clear. Mucous membranes moist. No adenopathy. Cardiovascular-regular rate and rhythm without murmur or ectopy Lungs-clear to auscultation, chest wall stable without crepitus or subcu emphysema Abdomen-normoactive bowel sounds, soft, nontender, no rebound or rigidity, no peritoneal signs. Neuro tdgo-juthdx-ofug and heel hoover testing within normal limits, negative Romberg, negative for drift. Extremities-intact ?4, normal range of motion, normal pulses, atraumatic] Test Results: [EKG obtained on arrival shows sinus rhythm with a ventricular rate of [address] changes noted. CBC with differential obtained showed a white count of 6.7, hemoglobin 12, hematocrit 38, placed 272. Chemistries unremarkable. Troponin less than 0.015. Chest x-ray interpreted by myself as no acute disease process. There is no evidence of pneumothorax or infiltrate. Radiology in agreement. CTA of the head and neck obtained showed no significant areas of stenosis or clot.] Emergency Department Course and Treatment: [IV line established. 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 It may contain incorrect words, spelling, and punctuation that were not noted in review of the chart prior to signing
--- NOTE | 2020-10-24 12:41 | EKG12_ITS ---
Test Reason : Blood Pressure : / mmHG Vent. Rate : 068 BPM Atrial Rate : 068 BPM P-R Int : 146 ms QRS Dur : 070 ms QT Int : 418 ms P-R-T Axes : 051 009 084 degrees QTc Int : 444 ms Normal sinus rhythm Anteroseptal infarct , age undetermined ST & T wave abnormality, consider lateral ischemia Abnormal ECG Confirmed by VAMSHI SPAULDING, LADI ([id number]), slot editor JAD TAY ([id number]) on 10/26/2020 10:27:43 AM Referred By: YFN Confirmed By:LADI BONDS MD
[2020-10-24] MEDS: 0.9% Normal Saline 1,000 ML 150 ML IV (12:47)
[2020-10-24 12:56] LABS: Absolute Lymphocyte Count 1.68 X10^3/uL (0.83-4.51); Absolute Neutrophil Count 4.2 X10^3/uL (2.0-7.7); Basophil# 0.03 X10^3/uL; Basophil% 0.4 % (0-1); Eosinophil# 0.16 X10^3/uL; Eosinophils% 2.4 % (0-5); Hematocrit 37.8 % (37-47); Hemoglobin 12.1 g/dL (12.0-15.0); Lymphocyte # 1.68 X10^3/ul (4.0); Lymphocyte % 25.1 % (19-41); Mean Corpuscular Hgb 28.5 pg (27.0-32.0); Mean Corpuscular Volume 89.2 fL (81-99); Mean Platelet Vol. 10.1 fl (6.2-12.0); Monocyte# 0.59 X10^3/uL; Monocyte% 8.8 % (0-10); NRBC Flagged by Analyzer 0 % (0-5); Neutrophil # 4.19 X10^3/uL (2.7-7.7); Neutrophil % 62.9 % (47-70); Platelet Count 272 K/mm3 (150-450); RBC Distribution Width CV 12.9 % (11.6-14.6); Red Blood Count 4.24 M/mm3 (4.2-5.4); White Blood Count 6.7 K/mm3 (4.4-11.0)
[2020-10-24 13:13] LABS: Anion Gap 5 (5-15); BUN 17 mg/dL (7-18); BUN/Creat Ratio 20.2 RATIO (10-20); Calcium,Total 8.7 mg/dL (8.5-10.1); Chloride 110 mmol/L (98-107); Creatinine, Serum 0.84 mg/dL (0.55-1.02); EST Glomerular Filtration Rate 70 mL/min (>60); Est Glom Filt Rate - Afr Amer 85 mL/min (>60); Estimated Creatinine Clearance 56.27 ml/min; Glucose 84 mg/dL (74-106); Potassium 3.9 mmol/L (3.5-5.1); Sodium Level 142 mmol/L (136-145)
--- NOTE | 2020-10-24 13:21 | CT_ITS ---
STUDY: CTA HEAD AND NECK WITH CONTRAST REASON FOR EXAM: Female, 75 years old. Patient seeS spots in left eye and irregular pupil. RADIATION DOSAGE (If Supplied By Facility): CTDIvol = ( 26.56 ) mGy, DLP = ( 1516.43 ) mGycm TECHNIQUE: CT angiography was performed with a multi-detector CT scanner. Data acquisition was obtained from the skull base through the vertex following intravenous administration of 100 ML OF ISOVUE 370. MIP images were reconstructed from the axial data set. Post-processing of the angiographic images was performed, with multiplanar reformation and 3D reconstruction. Individualized dose optimization techniques were used for this CT. COMPARISON: No relevant priors. FINDINGS: CTA BRAIN: Normal bilateral petrous carotid arteries. There is calcified plaque formation of the right cavernous carotid artery, without a cross-sectional luminal stenosis. There is calcified plaque formation of the left cavernous carotid artery, without a cross-sectional luminal stenosis. Normal right A1 segments of the anterior cerebral artery. Normal left A1 segments of the anterior cerebral artery. Normal intact anterior communicating artery (ACOM). Normal bilateral A2 segments of the anterior cerebral arteries. Normal right M1 and M2 segments of the middle cerebral arteries, with a normal M1 bifurcation. Normal left M1 and M2 segments of the middle cerebral arteries, with a normal M1 bifurcation. Normal right posterior communicating artery (PCOM). There is non-visualization of the left posterior communicating artery (PCOM). Normal bilateral vertebral arteries. Normal basilar artery with a normal basilar bifurcation. The visualized bilateral superior cerebellar (SCA) arteries are normal. There is no demonstrated aneurysm of the [place]. There is no demonstrated acute abnormality of the visualized brain. CTA NECK: AORTIC ARCH: There is atherosclerotic calcific plaque formation of the aortic arch and great vessels arising from the aortic arch, without a hemodynamically significant stenosis. There is a normal origin of the brachiocephalic, left common carotid, and left subclavian arteries. Normal origins of the brachiocephalic, left common carotid, and left subclavian arteries. RIGHT CAROTID ARTERIES: Normal right common carotid artery (CCA). There is mild atherosclerotic plaque formation with mild narrowing of the right carotid bulb. Normal origin of the right internal carotid (ICA) artery without a hemodynamically significant stenosis. Normal visualized cervical portion of the right internal carotid artery. Normal origin of the right external carotid artery (ECA). LEFT CAROTID ARTERIES: Normal left common carotid artery (CCA). There is mild atherosclerotic plaque formation with minimal narrowing of the left carotid bulb. Normal origin of the left internal carotid (ICA) artery without a hemodynamically significant stenosis. Normal visualized cervical portion of the left internal carotid artery. Normal origin of the left external carotid artery (ECA). VERTEBRAL ARTERIES: Normal bilateral vertebral arteries. CT/CTA Head AND Neck W/ Contrast IMPRESSION: 1. Mild obstructive changes in the cavernous internal carotid arteries without significant stenosis. 2. No great vessel significant stenosis is seen. 3. Mild atherosclerotic changes in the bulb regions bilaterally with mild stenosis. No flow-limiting stenosis is seen. Electronically Signed: Christopher Gonzales MD at 14:57 EST Tel , Service support ,
--- NOTE | 2020-10-24 13:45 | ED.RN ---
ambulatory to bathroom without difficulty.
--- NOTE | 2020-10-24 15:11 | NURSING ---
PCU CVA, RETINAL ARTERY OCCLUSION DONYA
--- NOTE | 2020-10-24 15:21 | HP.PCM_ITS ---
Problem List (1) Retinal artery thrombosis, left Status: Acute (2) LV dysfunction Status: Chronic (3) Atherosclerosis of coronary artery of [place] heart without angina pectoris Status: Chronic Qualifiers: Coronary Disease-Associated Artery/Lesion type: [place] artery Comment: 4.00 x 20 mm Synergy MR JENAE to mRCA, 4.00 x 20 mm Synergy MR JENAE to mLAD 01/02/20 (4) History of coronary artery stent placement Status: Chronic Comment: 4.00 x 20 mm Synergy MR JENAE to mRCA, 4.00 x 20 mm Synergy MR JENAE to mLAD 01/02/20 (5) NSTEMI (non-ST elevated myocardial infarction) Status: Acute (6) HTN (hypertension) Status: Chronic Qualifiers: (7) HLD (hyperlipidemia) Status: Chronic Qualifiers: (8) Stage 2 moderate COPD by GOLD classification Status: Chronic Comment: FEV1 67% (9) Dyspnea Status: Chronic Qualifiers: (10) History of lymph node excision Status: Resolved (11) History of hysterectomy Status: Resolved (12) History of cholecystectomy Status: Resolved (13) Lung nodule Status: Chronic (14) Periodic limb movement Status: Chronic (15) DEEPAK (obstructive sleep apnea) Status: Chronic Comment: Noncompliant with therapy History of Present Illness Date of Admission: 10/24/20 Chief Complaint: left eye vision changes The patient is a 75 year old F who at 2 PM on the eighth noted change in her left visual field. Patient was explained that she was having difficulty seeing in the medial portion of her left eye. Saw her chief nurse who dilated her and was concerned for a left retinal artery occlusion and sent to the emergency room. In the emergency room, patient underwent a stroke work-up with a CAT scan, CTA of her head neck that was unremarkable. Patient being admitted for further stroke work-up. Patient denies any history of any visual changes such as this nor history of a stroke previously. [] Past Medical History Past Medical History (Chronic Problems): Chronic Problems (Last Reviewed 09/02/20 @ 15:[address] Bertha Garcia MD) LV dysfunction (Chronic) Atherosclerosis of coronary artery of [place] heart without angina pectoris (Chronic) 4.00 x 20 mm Synergy MR JENAE to mRCA, 4.00 x 20 mm Synergy MR JENAE to mLAD 01/02/20 History of coronary artery stent placement (Chronic) 4.00 x 20 mm Synergy MR JENAE to mRCA, 4.00 x 20 mm Synergy MR JENAE to mLAD 01/02/20 HTN (hypertension) (Chronic) HLD (hyperlipidemia) (Chronic) Stage 2 moderate COPD by GOLD classification (Chronic) FEV1 67% Dyspnea (Chronic) Lung nodule (Chronic) Periodic limb movement (Chronic) DEEPAK (obstructive sleep apnea) (Chronic) Noncompliant with therapy Medical History: Medical History (Last Updated 10/24/20 @ 15:[address] Bruce Hale, DO) Atherosclerosis of coronary artery of [place] heart without angina pectoris (Chronic) I25.10 4.00 x 20 mm Synergy MR JENAE to mRCA, 4.00 x 20 mm Synergy MR JENAE to mLAD 01/02/20 Lung nodule (Chronic) R91.1 Periodic limb movement (Chronic) G47.61 DEEPAK (obstructive sleep apnea) (Chronic) G47.33 Noncompliant with therapy Hyperlipidemia E78.5 COPD (chronic obstructive pulmonary disease) J44.9 HTN (hypertension) I10 Allergies Sulfa (Sulfonamide Antibiotics) Adverse Reaction (Verified 09/02/20 13:16) Rash Home Medications: Ambulatory Orders Medication Instructions Recorded Aspirin [Aspirin, Baby] 81 mg PO DAILY@0800 01/02/20 atorvastatin 40 mg tablet 40 mg PO QHS #90 tab 02/23/20 clopidogrel 75 mg tablet 75 mg PO DAILY #90 tab 02/23/20 nitroglycerin 0.4 mg sublingual 0.4 mg SUBLINGUAL Q5-15M PRN #25 02/23/20 tablet tab losartan 25 mg tablet 25 mg PO DAILY tab 09/02/20 metoprolol succinate 50 mg 50 mg PO DAILY #30 tab 09/02/20 tablet,extended release 24 hr Furosemide 40 mg PO SUWE 10/24/20 Surgical History: Surgical History (Last Reviewed 10/24/20 @ 15:[address] Bruce Hale, DO) History of coronary artery stent placement (Chronic) Z95.5 4.00 x 20 mm Synergy MR JENAE to mRCA, 4.00 x 20 mm Synergy MR JENAE to mLAD 01/02/20 History of lymph node excision (Resolved) Z98.890 History of hysterectomy (Resolved) Z90.710 History of cholecystectomy (Resolved) Z90.49 Surgical History: cholecystectomy, hysterectomy Psychiatric History: No pertinent psych hx SUPPLEMENTAL MANAGER History: No pertinent SUPPLEMENTAL MANAGER history Smoking Status: Former smoker - *Family History Maternal Family History: Family History (Last Reviewed 10/24/20 @ 15:[address] Bruce Hale DO) Father Heart disease Sister Heart disease Breast cancer Diabetes Brother Heart disease Alzheimer's dementia Diabetes Mother Cancer Review of Systems Constitutional: Denies: Anorexia, Chills, Fever, Night Sweats Eyes: Reports: Vision Change. Denies: Double vision HEENT: Denies: Head Aches, Sinus Congestion, Sinus Drainage Cardiovascular: Denies: Chest Pain, Palpitations Respiratory: Reports: Shortness of Breath - Chronic and unchanged. Denies: Cough, Sputum production Gastrointestinal: Denies: Abdominal Pain, Nausea, Vomiting Genitourinary: Denies: Dysuria Musculoskeletal: Denies: Joint Pain, Joint Tenderness Skin: Denies: Rash, Wounds Neurological: Denies: Numbness, Tingling, Focal weakness Psychiatric: Denies: Anxiety, Depression Hematologic/ Lymphatic: Denies: Easy Bruising, Easy Bleeding, Hx of blood clot Comment: All review of systems were negative except as mentioned above in the history of present illness and the other review of systems. VTE Information - Inpt Only VTE Present on Admission: No VTE Mechan Device Prophylaxis: None VTE Pharm Prophylaxis ordered?: Yes - Physical Exam Vitals/I&O's: Vital Signs Temp Pulse Resp BP Pulse Ox 36.9 C 65 19 H 157/67 H 96 10/24/20 12:32 10/24/20 14:10 10/24/20 14:10 10/24/20 14:10 10/24/20 14:10 Oxygen Delivery Method Room Air Weight: 82.4 kg Body Mass Index (BMI) 28.4 General: Alert, Cooperative, No apparent distress HEENT: Atraumatic, EOMI, Normocephalic, - - Left pupil is dilated status post recent eye exam. Impaired visual field in the left eye in the medial lower quadrant Oral: Moist Mucosa, No Gingival or Mucosal Lesions/ Ulcerations Neck: Negative Carotid Bruits, No Nodes, Thyroid Normal Size and Texture Lungs: Clear to auscultation, Normal air movement, No rhonchi, No wheeze Cardiovascular: Regular rate, Regular Rhythm, Normal S1, Normal S2, No murmurs Abdomen: Bowel Sounds Present, Soft, Non Tender, Non-Distended, No Hepato- splenomegaly Extremities: No edema, Capillary Refill Less than 3 Seconds, No Calf Tenderness Skin: No rashes, No breakdown Musculoskeletal: No Tenderness to Palpation of Joints or Extremities Neurological: Cranial nerves II-XII grossly intact, Motor Exam 5/5 strength throughout Psych/Mental Status: Normal Affect, Appropriate Laboratory Results 10/24/20 12:45: WBC 6.7, RBC 4.24, Hgb 12.1, Hct 37.8, MCV 89.2, MCH 28.5, MCHC 32.0, RDW Std Deviation 42.0, RDW Coeff of Vlad 12.9, Plt Count 272, MPV 10.1, Immature Gran % (Auto) 0.400, Neut % (Auto) 62.9, Lymph % (Auto) 25.1, [place] % (Auto) 8.8, Eos % (Auto) 2.4, Baso % (Auto) 0.4, Absolute Neuts (auto) 4.2, Absolute Lymphs (auto) 1.68, Nucleated RBC % 0 10/24/20 12:45: Sodium 142, Potassium 3.9, Chloride 110 H, Carbon Dioxide 27.0, Anion Gap 5, BUN 17, Creatinine 0.84, Estim Creat Clear Calc 56.27, Est GFR (MDRD) Af Amer 85, Est GFR (MDRD) Non-Af 70, BUN/Creatinine Ratio 20.2 H, Glucose 84, Calcium 8.7, Troponin I < 0.015 EKG reviewed showed normal sinus rhythm without acute changes. Clinical Impression(s) from Imaging Studies Chest X-Ray 10/24/20 12:28 IMPRESSION: Normal x-ray examination of the chest. Electronically Signed: Miguelangel Davidson at 13:27 EST Tel , Service support , Head/Neck CTA 10/24/20 13:21 IMPRESSION: 1. Mild obstructive changes in the cavernous internal carotid arteries without significant stenosis. 2. No great vessel significant stenosis is seen. 3. Mild atherosclerotic changes in the bulb regions bilaterally with mild stenosis. No flow-limiting stenosis is seen. Electronically Signed: Christopher Gonzales MD at 14:57 EST Tel , Service support , Current Medications Sodium Chloride () 1,000 mls @ 150 mls/hr IV .Q6H40M [facility] Last Admin: 10/24/20 12:47 Dose: 150 mls/hr Documented by: Assessment/Plan All Active Problems (Last Reviewed 09/02/20 @ 15:[address] Bertha Garcia MD) Retinal artery thrombosis, left (Acute) NSTEMI (non-ST elevated myocardial infarction) (Acute) History of lymph node excision (Resolved) History of hysterectomy (Resolved) History of cholecystectomy (Resolved) 1. Left retinal artery occlusion: Concern for stroke equivalent. Patient will undergo an MRI of the brain as well as an echocardiogram. Patient be monitored on telemetry here but if no evidence of any arrhythmia, would recommend an event monitor upon discharge. Patient already on therapy with aspirin and clopidogrel due to her known coronary artery disease. Would not change any therapy at this time. Check fasting lipid panel. Patient already on atorvastatin 40 mg daily. May need to consider increasing that to 80. 2. Coronary artery disease: Patient has a remote history of a stent. Patient on aspirin and clopidogrel. Also continue atorvastatin, metoprolol succinate and losartan. 3. VTE prophylaxis: As patient's hospitalization will extend beyond 24 hours, w ill initiate enoxaparin beginning on the . 4. Advanced care planning: Discussed with the patient. Patient wishes to be full CODE STATUS. Inpatient E&M: 63725 Init Hosp L3
--- NOTE | 2020-10-24 16:00 | ECHOD_ITS ---
Reason For Study: TIA/CVA Procedure This was a 2D Doppler, Color Flow transthoracic echocardiogram. Exam performed portable in patient room. Left Ventricle Normal LV size. The estimated ejection fraction is 40 %. Mild to moderate segmental systolic dysfunction (see wall motion). Stage 1 diastolic dysfunction. There are regional wall motion abnormalities as specified. Right Ventricle Normal RV size. Normal systolic function. Atria Normal left atrium. Normal right atrium. Bubble contrast study negative for right to left interatrial shunt. Mitral Valve Bileaflet diffuse mitral valve thickening. Mild-Moderate (1-2+) eccentric mitral valve insufficiency. Tricuspid Valve Normal tricuspid valve. Mild tricuspid valve insufficiency. Pulmonary artery systolic pressure is 32 mmHg. Aortic Valve Normal aortic valve. Pulmonic Valve Normal pulmonic valve. Great Vessels Normal aortic root. The pulmonary artery is normal size. Normal inferior vena cava. Pericardium/Pleural No pericardial effusion. Medication Performed a rapid injection of agitated mix of 9 cc saline and 1cc air to assess for atrial septal defect. MMode/2D Measurements & Calculations LVIDd: 4.7 cm IVSd: 1.00 cm Ao root diam: 2.9 cm LVIDs: 3.2 cm LVPWd: 0.79 cm RVDd: 2.8 cm FS: 32.6 % LAV(MOD-bp): 54.6 ml LA A4 area: 17.8 cm2 LA dimension(2D): 3.8 cm LAV(MOD-bp) Indexed: 28.6 ml/m2 LAV(MOD-sp2): 53.6 ml LAV(MOD-sp4): 55.0 ml RA A4 area: 9.5 cm2 Time Measurements MV dec time: 0.21 sec Doppler Measurements & Calculations MV E max escobar: 70.2 cm/sec Lat Peak E' Escobar: 4.8 cm/sec Med Peak E' Escobar: 4.1 cm/sec MV A max escobar: 119.5 cm/sec E/E' lat: 14.7 E/E' med: 17.0 MV E/A: 0.59 Ao V2 max: 203.1 cm/sec AI max escobar: 318.0 cm/sec LV V1 max: 127.2 cm/sec Ao max P.5 mmHg AI max P.5 mmHg LV V1 max P.5 mmHg Ao V2 mean: 152.6 cm/sec AI dec slope: 240.7 cm/sec2 LV V1 mean P.2 mmHg Ao mean P.0 mmHg AI P1/2t: 387.0 msec LV V1 mean: 100.1 cm/sec Ao V2 VTI: 42.6 cm LV V1 VTI: 29.1 cm PA V2 max: 112.9 cm/sec TR max escobar: 265.1 cm/sec TR max P.1 mmHg Interpretation Summary Normal LV size. The estimated ejection fraction is 40 %. Mild to moderate segmental systolic dysfunction (see wall motion). Bubble contrast study negative for right to left interatrial shunt. Pulmonary artery systolic pressure is 32 mmHg. Stage 1 diastolic dysfunction. Compared to prior study, there is no significant change. Ordering Physician: Bruce Hale Referring Physician: OTD Performed By: Nikia Penn RDCS, RVT
--- NOTE | 2020-10-24 16:00 | MRI_ITS ---
STUDY: MRI BRAIN WITHOUT CONTRAST REASON FOR EXAM: Female, 75 years old. Left] no artery occlusion and stroke TECHNIQUE: Standardized multiplanar fat and water weighted pulse sequences were obtained. COMPARISON: [address] FINDINGS: Brain parenchyma is intact without focal lesions, mass effect, extra parenchymal fluid collections, hydrocephalus or herniation. There are mild age-appropriate white matter gliotic foci. Major vascular flow structures are preserved. Craniocervical junction is unremarkable. Orbital contents are normal. MRI/Brain without Contrast IMPRESSION: 1. Unremarkable brain MRI. No acute infarct. Electronically Signed: Miguelangel Davidson, at 13:07 EST Tel , Service support ,
[2020-10-24] MEDS: Atorvastatin Calcium 40 MG Tablet PO (21:49)
[2020-10-25] VITALS (12 sets, daily range): BP systolic 112–136; BP diastolic 43–64; PULSE 61–87; RESP 18–20; TEMP 36.5–37; O2SAT 91–96; BMI 27.3
[2020-10-25 06:35] LABS: Cholesterol 166 mg/dL (200); High Density Lipoprotein 72 mg/dL; Triglycerides 78 mg/dL; Very Low Density Lipoprotein 16 mg/dL (5-40)
[2020-10-25] MEDS: Furosemide 40 MG Tablet PO (10:02)
[2020-10-25] MEDS: Clopidogrel Bisulfate 75 MG Tablet PO (10:02)
[2020-10-25] MEDS: Losartan Potassium 25 MG Tablet PO (10:02)
[2020-10-25] MEDS: Metoprolol(XL)Succ 50 MG Tablet PO (10:02)
[2020-10-25] MEDS: Enoxaparin 40 MG/0.4 ML Syringe SC (10:03)
[2020-10-25] MEDS: Aspirin 81 MG TAB.CHEW PO (10:03)
[2020-10-25] MEDS: LORazepam 0.5 MG Tablet PO (10:14)
--- NOTE | 2020-10-25 12:34 | PCS.PANDOC ---
PANDEMIC DOCUMENTATION INITIATED: Date: 10/24/2020 Time: 8767
--- NOTE | 2020-10-25 13:10 | PN_ITS ---
Patient Problems: Active and Suspected Problems (Last Updated 10/24/20 @ 15:[address] Bruce Hale, DO) NSTEMI (non-ST elevated myocardial infarction) (Acute) Retinal artery thrombosis, left (Acute) Subjective: Patient seen and examined. She was admitted with a complaint of blurred vision in her left eye. She saw her stile ripsaw operator and was diagnosed with central retinal artery occlusion. She was referred to the ED to be worked up for stroke. Patient seen and examined. The vision in her left eye has normalised. Review of stems otherwise negative. She has no focal weakness and denies ever having a stroke. She has remained hemodynamically stable. Vitals/I&O's: Vital Signs Temp Pulse Resp BP Pulse Ox 97.9 F 75 18 134/54 H 96 10/25/20 10:00 10/25/20 10:02 10/25/20 10:00 10/25/20 10:02 10/25/20 10:00 Oxygen Delivery Method Room Air Weight: 175 lb Body Mass Index (BMI) 27.3 Intake and Output for Last 24 Hours 10/23/20 10/24/20 10/25/20 23:59 23:59 23:59 Intake Total 937.5 / 937.5 260 / 260 Balance 937.5 / 937.5 260 / 260 General: Alert, Oriented x3, Cooperative HEENT: Atraumatic, PERRLA, EOMI, Normocephalic Oral: Moist Mucosa Neck: Supple, No JVD, Negative Carotid Bruits Lungs: Clear to auscultation, Normal air movement Cardiovascular: Regular rate, Regular Rhythm, Normal S1, Normal S2, No murmurs Abdomen: Bowel Sounds Present, Soft, Non Tender Extremities: No edema, Capillary Refill Less than 3 Seconds Skin: No rashes, No breakdown Musculoskeletal: No Tenderness to Palpation of Joints or Extremities Lymphatic: No Cervical, Supraclavicular, or Inguinal Adenopathy Neurological: Cranial nerves II-XII grossly intact, Neuro grossly intact, Motor Exam 5/5 strength throughout Psych/Mental Status: Normal Affect, Appropriate, Alert and oriented to time, place, person, mood and affect Laboratory Results 10/24/20 12:45: Sodium 142, Potassium 3.9, Chloride 110 H, Carbon Dioxide 27.0, Anion Gap 5, BUN 17, Creatinine 0.84, Estim Creat Clear Calc 56.27, Est GFR (MDRD) Af Amer 85, Est GFR (MDRD) Non-Af 70, BUN/Creatinine Ratio 20.2 H, Glucose 84, Calcium 8.7, Troponin I < 0.015 10/25/20 05:50: Triglycerides 78, Cholesterol 166, LDL Cholesterol 78, VLDL Cholesterol 16, HDL Cholesterol 72 Diagnostic Data Chest X-Ray 10/24/20 12:28 IMPRESSION: Normal x-ray examination of the chest. Electronically Signed: Miguelangel Davidson, at 13:27 EST Tel , Service support , Head/Neck CTA 10/24/20 13:21 IMPRESSION: 1. Mild obstructive changes in the cavernous internal carotid arteries without significant stenosis. 2. No great vessel significant stenosis is seen. 3. Mild atherosclerotic changes in the bulb regions bilaterally with mild stenosis. No flow-limiting stenosis is seen. Electronically Signed: Christopher Gonzales MD at 14:57 EST Tel , Service support , Brain MRI 10/24/20 16:00 IMPRESSION: 1. Unremarkable brain MRI. No acute infarct. Electronically Signed: Miguelangel Davidson, at 13:07 EST Tel , Service support , Current Medications Acetaminophen (Acetaminophen 325 Mg Tablet) 650 mg PO Q6H PRN PRN PRN Reason: Pain Score 1-10/Temp > 100.7 F Aspirin (Aspirin 81 Mg Tab.Chew) 81 mg PO DAILY@0800 [facility] Last Admin: 10/25/20 10:03 Dose: 81 mg Documented by: Atorvastatin Calcium (Atorvastatin Calcium 40 Mg Tablet) 40 mg PO QHS [facility] Last Admin: 10/24/20 21:49 Dose: 40 mg Documented by: Clopidogrel Bisulfate (Clopidogrel Bisulfate 75 Mg Tablet) 75 mg PO DAILY [facility] Last Admin: 10/25/20 10:02 Dose: 75 mg Documented by: Enoxaparin Sodium (Enoxaparin 40 Mg/0.4 Ml Syringe) 40 mg SC DAILY [facility] Last Admin: 10/25/20 10:03 Dose: 40 mg Documented by: Furosemide (Furosemide 40 Mg Tablet) 40 mg PO SUWE [facility] Last Admin: 10/25/20 10:02 Dose: 40 mg Documented by: Hydralazine HCl (Hydralazine 20 Mg/Ml Vial) 5 mg IV Q30M PRN PRN Reason: to maintain BP goals Labetalol HCl (Labetalol (Prefilled) 20 Mg/4 Ml) 10 - 20 mg IV Q10M PRN PRN PRN Reason: to Maintain BP Goals Losartan Potassium (Losartan Potassium 25 Mg Tablet) 25 mg PO DAILY [facility] Last Admin: 10/25/20 10:02 Dose: 25 mg Documented by: Metoprolol Succinate (Metoprolol(Xl)Succ 50 Mg Tablet) 50 mg PO DAILY [facility] Last Admin: 10/25/20 10:02 Dose: 50 mg Documented by: Nitroglycerin (Nitroglycerin (Inpatient Use) 0.4 Mg Tab.Subl) 0.4 mg SUBLINGUAL Q5M PRN PRN Reason: chest pain Ondansetron HCl (Ondansetron 4 Mg/2 Ml Vial) 4 mg IV Q8H PRN PRN PRN Reason: NAUSEA/VOMITING Sodium Chloride (0.9% Saline Lock 10 Ml Syringe) 10 - 40 ml IV UD PRN PRN Reason: SALINE FLUSH STROKE Vital Signs/Narrative: Vital Signs Temp Pulse Resp BP Pulse Ox 10/25/20 10:02 75 134/54 H 10/25/20 10:00 97.9 F 75 18 134/54 H 96 Medical Necessity - Tobacco Use Smoking Status: Former smoker Assessment/Plan All Active Problems (Last Reviewed 10/24/20 @ 15:[address] Bruce Hale, DO) NSTEMI (non-ST elevated myocardial infarction) (Acute) Retinal artery thrombosis, left (Acute) History of lymph node excision (Resolved) History of hysterectomy (Resolved) History of cholecystectomy (Resolved) #Blurred vision in left eye * Body Design Checker diagnosed with central retinal artery occlusion. However the vision in her left eye is much better now. * MRI of the brain showed no evidence of any infarct. She is to have 2D echo tomorrow we will also order carotid ultrasound due to history of coronary artery disease. * On aspirin and Plavix. * Lipid panel is actually within normal limits. On atorvastatin 40 mg nightly. #CAD s/p stents: On aspirin and Plavix as well as atorvastatin, metoprolol and losartan. DVT prophylaxis: SCDs * Inpatient E&M: 08535 Subs Hosp L2
[2020-10-25] MEDS: 0.9% Saline Lock 10 ML Syringe IV (14:50)
[2020-10-25] MEDS: Acetaminophen 325 MG Tablet 650 MG PO (20:31)
[2020-10-25] MEDS: Atorvastatin Calcium 40 MG Tablet PO (20:31)
[2020-10-26] VITALS (7 sets, daily range): BP systolic 119–134; BP diastolic 55–56; PULSE 70–91; RESP 18; TEMP 36.6–36.8; O2SAT 94–96
--- NOTE | 2020-10-26 05:55 | CDU_ITS ---
Reason For Study: TIA Rt. Velocities/BP Lt. Velocities/BP Prox CCA 96/16 cm/sec. Prox CCA 107/21 cm/sec. Mid CCA 103/21 cm/sec. Mid CCA 105/15 cm/sec. Dist CCA 100/20 cm/sec. Dist CCA 103/17 cm/sec. Prox ICA 58/19 cm/sec. Prox ICA 106/21 cm/sec. Mid ICA 73/24 cm/sec. Mid ICA 106/28 cm/sec. Dist ICA 79/21 cm/sec. Dist ICA 150/32 cm/sec. Rt. ICA/CCA = .8. Lt. ICA/CCA = 1.4. Prox ECA 110/15 cm/sec. Prox ECA 106/15 cm/sec. Rt. Vert. 57/13 cm/sec. Lt. Vert. 53/15 cm/sec. Right Extracranial There is homogeneous, smooth atherosclerotic plaque noted in the right common carotid artery. There is heterogeneous, irregular atherosclerotic plaque noted in the right internal carotid artery. There is heterogeneous, irregular atherosclerotic plaque noted in the right external carotid artery. Antegrade flow is noted in the right vertebral artery. There is heterogeneous, irregular atherosclerotic plaque noted in the right bulb. Left Extracranial There is homogeneous, smooth atherosclerotic plaque noted in the left common carotid artery. There is heterogeneous, irregular atherosclerotic plaque noted in the left internal carotid artery. There is intimal thickening but no significant atherosclerotic plaque noted in the left external carotid artery. Antegrade flow is noted in the left vertebral artery. There is heterogeneous, irregular atherosclerotic plaque noted in the left bulb. Procedure Carotid Duplex [id number]. Exam performed portable in patient room. Interpretation Summary Irregular calcific plaque at the proximal right internal carotid artery with less than 50% stenosis. Less than 50% stenosis right external carotid artery Irregular calcific plaque with shadowing at the proximal left internal carotid artery with 50 to 69% stenosis, however this is within an area of tortuosity and may represent an over estimation. Less than 50% stenosis left external carotid artery Patent and antegrade vertebrals bilaterally Ordering Physician: Yue Casey Performed By: Shirin Kincaid RDCS, RVT
[2020-10-26 06:23] LABS: Absolute Lymphocyte Count 2.14 X10^3/uL (0.83-4.51); Absolute Neutrophil Count 3.8 X10^3/uL (2.0-7.7); Basophil# 0.04 X10^3/uL; Basophil% 0.6 % (0-1); Eosinophil# 0.15 X10^3/uL; Eosinophils% 2.2 % (0-5); Hemoglobin 12.5 g/dL (12.0-15.0); Lymphocyte # 2.14 X10^3/ul (4.0); Lymphocyte % 31.8 % (19-41); Mean Corp Hgb Conc 32.9 g/dL (32-36); Mean Corpuscular Hgb 28.7 pg (27.0-32.0); Mean Corpuscular Volume 87.2 fL (81-99); Mean Platelet Vol. 10.4 fl (6.2-12.0); Monocyte% 8.9 % (0-10); NRBC Flagged by Analyzer 0 % (0-5); Neutrophil # 3.78 X10^3/uL (2.7-7.7); Neutrophil % 56.1 % (47-70); Platelet Count 281 K/mm3 (150-450); RBC Distribution Width CV 12.7 % (11.6-14.6); Red Blood Count 4.36 M/mm3 (4.2-5.4); White Blood Count 6.7 K/mm3 (4.4-11.0)
[2020-10-26 06:50] LABS: Anion Gap 5 (5-15); BUN 21 mg/dL (7-18); BUN/Creat Ratio 24.1 RATIO (10-20); Calcium,Total 8.8 mg/dL (8.5-10.1); Chloride 109 mmol/L (98-107); Creatinine, Serum 0.87 mg/dL (0.55-1.02); EST Glomerular Filtration Rate 67 mL/min (>60); Est Glom Filt Rate - Afr Amer 81 mL/min (>60); Estimated Creatinine Clearance 54.33 ml/min; Glucose 113 mg/dL (74-106); Potassium 3.7 mmol/L (3.5-5.1); Sodium Level 140 mmol/L (136-145)
[2020-10-26] MEDS: Metoprolol(XL)Succ 50 MG Tablet PO (09:23)
[2020-10-26] MEDS: Enoxaparin 40 MG/0.4 ML Syringe SC (09:23)
[2020-10-26] MEDS: Aspirin 81 MG TAB.CHEW PO (09:23)
[2020-10-26] MEDS: Clopidogrel Bisulfate 75 MG Tablet PO (09:23)
[2020-10-26] MEDS: Losartan Potassium 25 MG Tablet PO (09:23)
--- NOTE | 2020-10-26 11:07 | DCINST_ITS ---
- Discharge Diagnoses Current Active Problems: Current Active and Chronic Problems (Last Updated 10/24/20 @ 15:[address] Bruce Hale, DO) Dyspnea (Chronic) Stage 2 moderate COPD by GOLD classification (Chronic) FEV1 67% NSTEMI (non-ST elevated myocardial infarction) (Acute) HTN (hypertension) (Chronic) HLD (hyperlipidemia) (Chronic) LV dysfunction (Chronic) Retinal artery thrombosis, left (Acute) Atherosclerosis of coronary artery of [place] heart without angina pectoris (Chronic) 4.00 x 20 mm Synergy MR JENAE to mRCA, 4.00 x 20 mm Synergy MR JENAE to mLAD 01/02/20 History of coronary artery stent placement (Chronic) 4.00 x 20 mm Synergy MR JENAE to mRCA, 4.00 x 20 mm Synergy MR JENAE to mLAD 01/02/20 Lung nodule (Chronic) Periodic limb movement (Chronic) DEEPAK (obstructive sleep apnea) (Chronic) Noncompliant with therapy You will use the following diet at home:: No restrictions Your food should be the consistency of: Regular Allergies/Adverse Reactions: Allergies Sulfa (Sulfonamide Antibiotics) Adverse Reaction (Verified 09/02/20 13:16) Rash Medications to take at Discharge Aspirin [Aspirin, Baby] 81 mg PO DAILY@0800 01/02/20 nitroglycerin 0.4 mg sublingual tablet 0.4 mg SUBLINGUAL Q5-15M PRN #25 tab 02/23/20 losartan 25 mg tablet 25 mg PO DAILY tab 09/02/20 Atorvastatin Calcium [Lipitor] 40 mg PO QHS 10/24/20 Clopidogrel Bisulfate [Clopidogrel] 75 mg PO DAILY 10/24/20 Furosemide 40 mg PO SUWE 10/24/20 Metoprolol Succinate 50 mg PO DAILY 10/24/20 Primary Care Physician: Tim Zapata [Other] Please follow up with your Primary Care Physician in: in 1 week Test Results: Test results from this visit will be discussed in further detail at your follow- up appointment, if applicable. Please Follow Up With: Your hospice home health aide When: Scheduled Proposed Discharge Date: 10/26/20
--- NOTE | 2020-10-26 11:09 | PCM.DC.SUM ---
Discharge Date and Diagnosis - Problem List Patient Problems: Active and Suspected Problems (Last Updated 10/24/20 @ 15:[address] Bruce Hale DO) NSTEMI (non-ST elevated myocardial infarction) (Acute) Retinal artery thrombosis, left (Acute) Date of Admission: 10/24/20 Date of Discharge: 10/26/20 - Primary Discharge Diagnosis Acute Problems: Active Problems (Last Updated 10/24/20 @ 15:[address] Bruce Hale DO) NSTEMI (non-ST elevated myocardial infarction) (Acute) Retinal artery thrombosis, left (Acute) - Secondary Discharge Diagnosis Chronic Problems: Chronic Problems (Last Updated 10/24/20 @ 15:[address] Bruce Hale DO) Dyspnea (Chronic) Stage 2 moderate COPD by GOLD classification (Chronic) FEV1 67% HTN (hypertension) (Chronic) HLD (hyperlipidemia) (Chronic) LV dysfunction (Chronic) Atherosclerosis of coronary artery of [place] heart without angina pectoris (Chronic) 4.00 x 20 mm Synergy MR JENAE to mRCA, 4.00 x 20 mm Synergy MR JENAE to mLAD 01/02/20 History of coronary artery stent placement (Chronic) 4.00 x 20 mm Synergy MR JENAE to mRCA, 4.00 x 20 mm Synergy MR JENAE to mLAD 01/02/20 Lung nodule (Chronic) Periodic limb movement (Chronic) DEEPAK (obstructive sleep apnea) (Chronic) Noncompliant with therapy Hospital Course and Treatment Imaging Results: Clinical Impression(s) from Imaging Studies Chest X-Ray 10/24/20 12:28 IMPRESSION: Normal x-ray examination of the chest. Electronically Signed: Miguelangel Davidson at 13:27 EST Tel , Service support , Head/Neck CTA 10/24/20 13:21 IMPRESSION: 1. Mild obstructive changes in the cavernous internal carotid arteries without significant stenosis. 2. No great vessel significant stenosis is seen. 3. Mild atherosclerotic changes in the bulb regions bilaterally with mild stenosis. No flow-limiting stenosis is seen. Electronically Signed: Christopher Gonzales MD at 14:57 EST Tel , Service support , Brain MRI 10/24/20 16:00 IMPRESSION: 1. Unremarkable brain MRI. No acute infarct. Electronically Signed: Miguelangel Davidson, at 13:07 EST Tel , Service support , Operations: None Procedures: 2-D Echocardiogram - Demonstrated EF of 40% Summary of Care Provided: Patient is a 75-year-old lady who has been diagnosed with central retinal artery occlusion presented with blurred vision 1. Central retinal arterial occlusion ?Patient presented with blurred vision. Symptoms did improve. Patient underwent subsequent evaluation with MRI of the brain which was negative for acute infarct. She also underwent CTA of the head and neck as well as ultrasound which failed to demonstrate any hemodynamically significant obstructive lesions. Patient was placed on dual antiplatelet therapy with aspirin and Plavix as well as atorvastatin. Instructed to follow-up with primary care physician as well as with her commercial airplane pilot ?Patient has an appointment on 11/29/2020. 2. Renal artery disease ?With previous stent placement. On recommended medications 3. Dyslipidemia -Patient is on statin therapy, continued at home dose 4. Hypertension - Blood pressure controlled, home medications continued with dose adjustment as needed 5. DVT prophylaxis ?Enoxaparin Patient Problems: Active and Suspected Problems (Last Updated 10/24/20 @ 15:[address] Bruce Hale, DO) NSTEMI (non-ST elevated myocardial infarction) (Acute) Retinal artery thrombosis, left (Acute) - Physical Exam Vitals/I&O's: Vital Signs Temp Pulse Resp BP Pulse Ox 98.2 F 70 18 119/56 L 96 10/26/20 09:21 10/26/20 09:23 10/26/20 09:21 10/26/20 09:21 10/26/20 09:21 Oxygen Delivery Method Room Air Weight: 79.379 kg Body Mass Index (BMI) 27.3 Intake and Output for Last 24 Hours 10/24/20 10/25/20 10/26/20 23:59 23:59 23:59 Intake Total 937.5 / 937.5 860 / 860 0 / 0 Balance 937.5 / 937.5 860 / 860 0 / 0 General: Alert HEENT: Atraumatic Lungs: Clear to auscultation Cardiovascular: Regular rate Extremities: No clubbing Laboratory Results 10/26/20 06:10: WBC 6.7, RBC 4.36, Hgb 12.5, Hct 38.0, MCV 87.2, MCH 28.7, MCHC 32.9, RDW Std Deviation 41.0, RDW Coeff of Vlad 12.7, Plt Count 281, MPV 10.4, Immature Gran % (Auto) 0.400, Neut % (Auto) 56.1, Lymph % (Auto) 31.8, Bollinger % (Auto) 8.9, Eos % (Auto) 2.2, Baso % (Auto) 0.6, Absolute Neuts (auto) 3.8, Absolute Lymphs (auto) 2.14, Nucleated RBC % 0 10/26/20 06:10: Sodium 140, Potassium 3.7, Chloride 109 H, Carbon Dioxide 26.0, Anion Gap 5, BUN 21 H, Creatinine 0.87, Estim Creat Clear Calc 54.33, Est GFR (MDRD) Af Amer 81, Est GFR (MDRD) Non-Af 67, BUN/Creatinine Ratio 24.1 H, Glucose 113 H, Calcium 8.8 Current Medications Acetaminophen (Acetaminophen 325 Mg Tablet) 650 mg PO Q6H PRN PRN PRN Reason: Pain Score 1-10/Temp > 100.7 F Last Admin: 10/25/20 20:31 Dose: 650 mg Documented by: Aspirin (Aspirin 81 Mg Tab.Chew) 81 mg PO DAILY@0800 [facility] Last Admin: 10/26/20 09:23 Dose: 81 mg Documented by: Atorvastatin Calcium (Atorvastatin Calcium 40 Mg Tablet) 40 mg PO QHS [facility] Last Admin: 10/25/20 20:31 Dose: 40 mg Documented by: Clopidogrel Bisulfate (Clopidogrel Bisulfate 75 Mg Tablet) 75 mg PO DAILY [facility] Last Admin: 10/26/20 09:23 Dose: 75 mg Documented by: Enoxaparin Sodium (Enoxaparin 40 Mg/0.4 Ml Syringe) 40 mg SC DAILY [facility] Last Admin: 10/26/20 09:23 Dose: 40 mg Documented by: Furosemide (Furosemide 40 Mg Tablet) 40 mg PO SUWE [facility] Last Admin: 10/25/20 10:02 Dose: 40 mg Documented by: Hydralazine HCl (Hydralazine 20 Mg/Ml Vial) 5 mg IV Q30M PRN PRN Reason: to maintain BP goals Labetalol HCl (Labetalol (Prefilled) 20 Mg/4 Ml) 10 - 20 mg IV Q10M PRN PRN PRN Reason: to Maintain BP Goals Losartan Potassium (Losartan Potassium 25 Mg Tablet) 25 mg PO DAILY [facility] Last Admin: 10/26/20 09:23 Dose: 25 mg Documented by: Metoprolol Succinate (Metoprolol(Xl)Succ 50 Mg Tablet) 50 mg PO DAILY [facility] Last Admin: 10/26/20 09:23 Dose: 50 mg Documented by: Nitroglycerin (Nitroglycerin (Inpatient Use) 0.4 Mg Tab.Subl) 0.4 mg SUBLINGUAL Q5M PRN PRN Reason: chest pain Ondansetron HCl (Ondansetron 4 Mg/2 Ml Vial) 4 mg IV Q8H PRN PRN PRN Reason: NAUSEA/VOMITING Sodium Chloride (0.9% Saline Lock 10 Ml Syringe) 10 - 40 ml IV UD PRN PRN Reason: SALINE FLUSH Last Admin: 10/25/20 14:50 Dose: 20 ml Documented by: Discharge Diet: Low fat/ Low Cholesterol Discharge Activity: Return to Normal Activity Home Medications: Medications to take at Discharge Aspirin [Aspirin, Baby] 81 mg PO DAILY@0800 01/02/20 nitroglycerin 0.4 mg sublingual tablet 0.4 mg SUBLINGUAL Q5-15M PRN #25 tab 02/23/20 losartan 25 mg tablet 25 mg PO DAILY tab 09/02/20 Atorvastatin Calcium [Lipitor] 40 mg PO QHS 10/24/20 Clopidogrel Bisulfate [Clopidogrel] 75 mg PO DAILY 10/24/20 Furosemide 40 mg PO SUWE 10/24/20 Metoprolol Succinate 50 mg PO DAILY 10/24/20 Primary Care Physician: Tim Zapata [Other] Please follow up with your Primary Care Physician in: in 1 week Please Follow Up With: Your commercial airplane pilot When: Scheduled Disposition: Home Minutes spent on discharge:: 35 Patient Condition:: Stable Medical Necessity - Tobacco Use Smoking Status: Never smoker Meaningful Use Info Meaningful Use Diagnoses (Choose all that apply): None applicable Inpatient E&M: [id number] [facility]
--- NOTE | 2020-10-26 11:23 | CASEMGMT ---
GREGORY HAYES assessment: Face to Face with patient for initial transition planning/care coordination assessment. GREGORY HAYES introduced self and role at [facility], pt voices understanding and consents to assessment at this time. Pt is sitting up in bed in no distress at this time. Pt is A/Ox4 at this time and answers all questions appropriately at this time. Care providers, pharmacy, and demographics verified at this time. Presentation: Pt with 'spot' in left visual field since yesterday. Denies eye injury. Pupil irregular Admitting dx: Retinal artery occlusion PCP: Benny Specialists: Radha cardio Preferred Pharmacy: [facility] Insurance: [employer] Prescription Benefit: [employer] Living Will/HPOA: Pt states does not have LW/HPOA and states has AD info at home and declines need for any further info at this time. LNOK: Ayush Bajwa, ; Sabina Bajwa, daughter Living Arrangements: Pt states lives with in mobile home with 4 steps in and states no concerns at home at this time. Pt states is independent with ADL's. Transportation: Pt states drives self and states no transportation concerns at this time. DME/HHC: Pt states no current DME or need for any at this time. Pt states no hx of HHC or SNF in the past. Pt states no concerns with going home at time of discharge. Pt states is retired. Pt states does not smoke cigerettes or drink ETOH. Pt states no further concerns/needs at this time. CM to follow for any further discharge planning/needs. Advised pt to ask for CM if any further questions/concerns/needs arise, voices understanding. Pt Goal: Home Plan: Home [place] GREGORY HAYES
--- NOTE | 2020-10-26 13:25 | PHA.DC.MR ---
Pharmacy Service has performed discharge medication reconciliation for this patient. The patient's discharge medication list was reviewed for discrepancies and discrepancies were resolved. Home Medications Aspirin [Aspirin, Baby] 81 mg PO DAILY@0800 01/02/20 nitroglycerin 0.4 mg sublingual tablet 0.4 mg SUBLINGUAL Q5-15M PRN #25 tab 02/23/20 losartan 25 mg tablet 25 mg PO DAILY tab 09/02/20 Atorvastatin Calcium [Lipitor] 40 mg PO QHS 10/24/20 Clopidogrel Bisulfate [Clopidogrel] 75 mg PO DAILY 10/24/20 Furosemide 40 mg PO SUWE 10/24/20 Metoprolol Succinate 50 mg PO DAILY 10/24/20
--- NOTE | 2020-10-27 14:09 | CASEMGMT ---
GREGORY HAYES Discharge F/U Phone Call LACE: 10 Strata: 3 Discharge date: 10/26/20 Call date: 10/27/20 Call time: [id number] Admission dx: Retinal Artery Occlusion Pt states has been 'doing good' since discharge. Pt states no questions regarding discharge instructions or medications at this time. Pt states has f/u with PCP and ophthalmology scheduled and plans to keep. Pt states no suggestions for [facility] at this time and states 'Those girls took really good care of me.' Pt voices no further questions/concerns/needs at this time. [place] GREGORY HAYES
== END 2020-10-26 16:57 | disposition home or self-care (01) | DRG 123 ==
LOC: ED 13:20 → PCU 15:25
PROVIDERS: Student in an Organized Health Care Education/Training Program; Emergency Provider Emergency Medicine; Visit Provider Internal Medicine
DX: H34.10 Central retinal artery occlusion, unspecified eye (principal); H54.62 Unqualified visual loss, left eye, normal vision right eye; I25.10 Atherosclerotic heart disease of native coronary artery without angina pectoris; I10 Essential (primary) hypertension; E78.5 Hyperlipidemia, unspecified; J44.9 Chronic obstructive pulmonary disease, unspecified; G47.61 Periodic limb movement disorder; G47.33 Obstructive sleep apnea (adult) (pediatric); R91.1 Solitary pulmonary nodule; Z91.19 Patient's noncompliance with other medical treatment and regimen; I25.2 Old myocardial infarction; Z95.5 Presence of coronary angioplasty implant and graft; Z87.891 Personal history of nicotine dependence; Z79.899 Other long term (current) drug therapy; Z79.82 Long term (current) use of aspirin; Z79.02 Long term (current) use of antithrombotics/antiplatelets; Z80.3 Family history of malignant neoplasm of breast; Z82.0 Family history of epilepsy and other diseases of the nervous system; Z83.3 Family history of diabetes mellitus; Z90.49 Acquired absence of other specified parts of digestive tract; Z90.710 Acquired absence of both cervix and uterus
CPT/HCPCS: 70496; 70498; 70551; 71045; 80048; 80061; 84484; 85025; 92610; 93005; 93306; 93880; 94762; 97161; 97165; 99283; J7030; Q9967; A4216

== ENCOUNTER → 2020-11-02 13:59 | Outpatient (CLI) | payer MEDICARE, SELFPAY ==
[2020-01-03 08:21] VITALS: BMI 26.7
[2020-10-25 02:52] VITALS: BMI 27.3
[2020-11-02 15:54] LABS: Erythrocyte Sedimentation Rate 7 mm/hr (0-30)
[2020-11-02 15:55] LABS: Absolute Lymphocyte Count 2.15 X10^3/uL (0.83-4.51); Absolute Neutrophil Count 5.4 X10^3/uL (2.0-7.7); Basophil# 0.05 X10^3/uL; Basophil% 0.6 % (0-1); Eosinophil# 0.19 X10^3/uL; Eosinophils% 2.2 % (0-5); Hematocrit 39.4 % (37-47); Hemoglobin 12.8 g/dL (12.0-15.0); Lymphocyte # 2.15 X10^3/ul (4.0); Lymphocyte % 25.4 % (19-41); Mean Corp Hgb Conc 32.5 g/dL (32-36); Mean Corpuscular Hgb 29.2 pg (27.0-32.0); Mean Corpuscular Volume 89.7 fL (81-99); Mean Platelet Vol. 11.4 fl (6.2-12.0); Monocyte# 0.65 X10^3/uL; Monocyte% 7.7 % (0-10); NRBC Flagged by Analyzer 0 % (0-5); Neutrophil # 5.37 X10^3/uL (2.7-7.7); Neutrophil % 63.5 % (47-70); Platelet Count 299 K/mm3 (150-450); RBC Distribution Width CV 12.9 % (11.6-14.6); RBC Distribution Width SD 42.5 fl (35.1-43.9); Red Blood Count 4.39 M/mm3 (4.2-5.4); White Blood Count 8.5 K/mm3 (4.4-11.0)
[2020-11-02 16:26] LABS: CRP < 2.90 mg/L (0.0-3.0)
== END ==
PROVIDERS: Referring Provider Ophthalmology; Visit Provider Ophthalmology
DX: H34.232 Retinal artery branch occlusion, left eye (principal); H57.12 Ocular pain, left eye
CPT/HCPCS: 36415; 85025; 85652; 86140

== ENCOUNTER 2020-12-22 08:39 | Outpatient (RCR) | payer MEDICARE, SELFPAY ==
[2020-01-03 08:21] VITALS: BMI 26.7
[2020-10-25 02:52] VITALS: BMI 27.3
[2020-12-22] MEDS: COVID-19 VACC, MRNA(PFIZER)/PF 30 MCG/0.3 ML SYRINGE IM (11:03)
[2021-01-12] MEDS: COVID-19 VACC, MRNA(PFIZER)/PF 30 MCG/0.3 ML SYRINGE IM (10:57)
== END 2021-03-23 23:59 ==
LOC: IMMUN 08:39
PROVIDERS: Visit Provider Family Medicine
DX: Z23 Encounter for immunization (principal)
CPT/HCPCS: 0001A; 0002A; 91300

== ENCOUNTER → 2021-10-07 10:11 | Outpatient (CLI) | payer MEDICARE, SELFPAY ==
[2020-01-03 08:21] VITALS: BMI 26.7
--- NOTE | 2021-10-07 10:15 | BD_ITS ---
STUDY: DUAL ENERGY X-RAY ABSORPTIOMETRY / DXA REASON FOR EXAM: Female, 76 years old. M810. The patient is postmenopausal. TECHNIQUE: Bone Mineral Density (BMD) measurements of lumbar spine and bilateral hips were obtained. COMPARISON: Comparison is made with prior study dated 03/16/2017. FINDINGS: Lumbar Spine (L1-L4): g/cm2 (0.788) / T-score (-2.4) / Z-score (0.1) Findings are suggestive of osteopenia with a high fracture risk. Left Femur Total: g/cm2 (0.625) / T-score (-2.6) / Z-score (-0.7) Left Femoral Neck: g/cm2 (0.558) / T-score (-2.6) / Z-score (-0.5) Right Femur Total: g/cm2 (0.640) / T-score (-2.5) / Z-score (-0.6) Right Femoral Neck: g/cm2 (0.538) / T-score (-2.8) / Z-score (-0.6) The T-Scores on the most recent prior examination were: Lumbar Spine (L1-L4): There has been improvement of bone density since the previous examination. Left Femur Total: which represents a worsening of 1.4%. Right Femur Total: which represents a worsening of 3%. BD/Dexa Bone Density Study IMPRESSION: The patient is considered osteoporotic as outlined below according to World Jaspreet Organization (WHO) criteria with a high fracture risk. There has been worsening of bone density since the previous examination. Reference Information: The T-score is the number of standard deviations above or below the standard which is normal for young adults at their peak bone mineral density. The World Health Organization (WHO) interprets the T-scores as follows: Above -1 Normal bone density Between -1 and -2.5 Osteopenia Equal to / or below -2.5 Osteoporosis As a practical clinical guideline, osteopenia may be graded as follows: Mild -1 through -1.5 Moderate -1.6 through -2.0 Severe -2.1 through -2.4 The Z-score is the number of standard deviations above or below age-matched controls. A Z-score of less than -1.5 would be considered abnormal. References: 1. NIH Osteoporosis and Related Bone Diseases www osteo.org 2. International Society for Clinical Densitometry www iscd.org 3. National Osteoporosis Foundation www nof.org Electronically Signed: Hector Mckeon MD at 12:40 EST , Service support ,
== END ==
DX: M81.0 Age-related osteoporosis without current pathological fracture (principal)
CPT/HCPCS: 77080

== ENCOUNTER 2021-12-28 14:33 | Outpatient (CLI) | payer MEDICARE, SELFPAY ==
[2020-01-03 08:21] VITALS: BMI 26.7
[2021-12-28 16:38] LABS: Absolute Neutrophil Count 5.9 X10^3/uL (2.0-7.7); Basophil# 0.02 X10^3/uL; Basophil% 0.3 % (0-1); Eosinophil# 0.02 X10^3/uL; Eosinophils% 0.3 % (0-5); Hematocrit 39.9 % (37-47); Hemoglobin 13.2 g/dL (12.0-15.0); Lymphocyte % 15.2 % (19-41); Mean Corp Hgb Conc 33.1 g/dL (32-36); Mean Corpuscular Hgb 29.1 pg (27.0-32.0); Mean Corpuscular Volume 87.9 fL (81-99); Mean Platelet Vol. 10.9 fl (6.2-12.0); Monocyte% 2.8 % (0-10); NRBC Flagged by Analyzer 0 % (0-5); Neutrophil # 5.85 X10^3/uL (2.7-7.7); Neutrophil % 80.8 % (47-70); Platelet Count 276 K/mm3 (150-450); RBC Distribution Width SD 42.1 fl (35.1-43.9); Red Blood Count 4.54 M/mm3 (4.2-5.4); White Blood Count 7.2 K/mm3 (4.4-11.0)
[2021-12-28 16:56] LABS: ALB/GLOB Ratio 1.1 RATIO (0.9-2.4); AST(SGOT) 14 U/L (15-37); Alanine Aminotransfer ALT/SGPT 27 U/L (13-56); Alkaline Phosphatase 109 U/L (45-117); Anion Gap 3 (5-15); BUN 17 mg/dL (7-18); Calcium,Total 8.9 mg/dL (8.5-10.1); Chloride 108 mmol/L (98-107); Cholesterol 174 mg/dL (200); Creatinine, Serum 1.06 mg/dL (0.55-1.02); EST Glomerular Filtration Rate 53 mL/min (>60); Est Glom Filt Rate - Afr Amer 65 mL/min (>60); Globulin 3.8 g/dL (2.2-4.2); Glucose 121 mg/dL (74-106); High Density Lipoprotein 78 mg/dL; Potassium 4.5 mmol/L (3.5-5.1); Protein, Total 7.8 g/dL (6.4-8.2); Sodium Level 140 mmol/L (136-145); Triglycerides 77 mg/dL; Very Low Density Lipoprotein 15 mg/dL (5-40)
[2021-12-28 16:57] LABS: Vitamin D,25 Hydroxy 12.6 ng/mL
== END 2021-12-28 23:59 | disposition home or self-care (01) ==
LOC: BIMLAB 14:33
PROVIDERS: PCP Internal Medicine; Referring Provider Internal Medicine; Visit Provider Internal Medicine
DX: M81.0 Age-related osteoporosis without current pathological fracture (principal); E78.5 Hyperlipidemia, unspecified; I10 Essential (primary) hypertension
CPT/HCPCS: 36415; 80053; 80061; 82306; 85025

== ENCOUNTER 2022-01-06 06:39 | Outpatient (CLI) | payer MEDICARE, SELFPAY ==
[2020-01-03 08:21] VITALS: BMI 26.7
--- NOTE | 2022-01-06 18:05 | STRESSREP ---
Stress Test Report Exercise myocardial perfusion stress test. 76-year-old lady with a history of previous angioplasty and stenting to the left anterior descending artery and right coronary artery. Stress protocol: Resting EKG demonstrates normal sinus rhythm with a rate of 65 bpm. Normal intervals are noted resting blood pressure is 128/78 mmHg. Poor R wave progression is noted T wave inversions are noted in the anterior leads. The patient exercised according to regular Howard protocol for total duration of 5 minutes. Patient completed 2 minutes into stage II of the Howard protocol the maximum heart rate attained was 136 bpm which was 94% of max impact at heart rate. The maximum workload was 7 metabolic equivalents. At rest there were no ST or T wave changes noted to suggest ischemia and at peak exercise 1.[address] changes were noted with did not meet the criteria for ischemia. T wave inversions were noted in the anterior leads. The peak blood pressure was 170/70 mmHg. Rate-pressure product was 21,440. No clinical angina was noted the test was terminated due to dyspnea. Myocardial perfusion protocol. 11.6 mCi of technetium 99m sestamibi was injected at rest. The patient exercised according to regular Howard protocol and at peak exercise 33.5 mCi of technetium 99m sestamibi was injected stress images were obtained stress and rest images were reconstructed and compared in the short axis vertical long and horizontal long axis. Gated images were also obtained. Perfusion SPECT analysis: Review of the stress images demonstrate a medium size defect noted involving the distal anterior wall and apex. The septum lateral wall and inferior wall appear to be well perfused. The resting images demonstrate a similar pattern. The above is suggestive of a previous anterior apical infarct. Minimal gypsy-infarct ischemia is present. Gated SPECT analysis: The gated ejection fraction is 51%. Conclusion: Mild function aerobic impairment. Exercise myocardial perfusion stress test with no evidence of ischemia noted. Previous anteroapical infarct is present.
== END 2022-01-06 23:59 | disposition home or self-care (01) ==
LOC: CVS 06:42
PROVIDERS: PCP Internal Medicine; Referring Provider Internal Medicine Cardiovascular Disease; Visit Provider Internal Medicine Cardiovascular Disease
DX: I25.10 Atherosclerotic heart disease of native coronary artery without angina pectoris (principal)
CPT/HCPCS: 78452; 93017; A9500; A4216

== ENCOUNTER 2022-02-23 08:45 | Day surgery (SDC) | payer MEDICARE, SELFPAY ==
[2020-01-03 08:21] VITALS: BMI 26.7
[2022-02-23] VITALS (7 sets, daily range): BP systolic 120–149; BP diastolic 54–81; PULSE 71–80; RESP 16–18; TEMP 36.2–36.7; O2SAT 92–98; BMI 27.8
[2022-02-23] MEDS: Lactated Ringers 1,000 ML 15 ML IV (09:28)
--- NOTE | 2022-02-23 09:32 | HP.PCM_ITS ---
History and Physical Date of Admission: 02/23/22 Date of Service: 01/27/22 MR#:[id number]: BENJAMÍN SILVERMAN #:[id number]:1945 Provider:Gabriela Baeza/Sex: 77/F [facility] Vital Signs 01/27/22 08:48 Height 5 ft 5 in Weight: 175 lb 8 oz BMI 29.2 BP 156/77 H Blood Pressure Location Rt brachial Position Sitting Respiration 17 Pulse 105 H Pulse Source Monitor Temp 97.6 F L Temp Source Temporal Pulse Oximetry (%) 95 Oxygen Delivery Method room air Intake Visit Reasons: CSCOPE Chief Complaint: CSCOPE Air Crew Officer Required: No Is patient in pain?: No Allergies Sulfa (Sulfonamide Antibiotics) Adverse Reaction (Verified 01/27/22 08:48) Rash Medications aspirin 81 mg PO DAILY@0800 01/02/20 [History Confirmed 01/27/22] nitroglycerin 0.4 mg sublingual tablet 0.4 mg SUBLINGUAL Q5-15M PRN #25 tab 02/23/20 [Rx Confirmed 01/27/22] atorvastatin 40 mg tablet 40 mg PO QHS #90 tab 03/10/21 [Rx Confirmed 01/27/22] clopidogrel 75 mg tablet 75 mg PO DAILY #90 tab 03/10/21 [Rx Confirmed 01/27/22] metoprolol succinate 50 mg tablet,extended release 24 hr See Rx Instructions .ROUTE .COMPLEX #90 tablet 09/13/21 [Rx Confirmed 01/27/22] furosemide 40 mg tablet 40 mg PO .M/T #45 tab 12/16/21 [Rx Confirmed 01/27/22] acidophilos PO 12/28/21 [History Confirmed 01/27/22] ascorbic acid (vitamin C) 500 mg capsule mg PO 12/28/21 [History Confirmed 01/27/22] d-mannose 500 mg capsule mg PO 12/28/21 [History Confirmed 01/27/22] losartan 50 mg tablet 50 mg PO DAILY #90 tab 12/28/21 [Rx Confirmed 01/27/22] polyethylene glycol 3350 17 gram/dose oral powder 17 g PO DAILY 12/28/21 [History Confirmed 01/27/22] cholecalciferol (vitamin D3) 1,250 mcg (50,000 unit) capsule 1,250 mcg PO QWEEK #14 cap 12/29/21 [Rx Confirmed 01/27/22] [facility] Medical History Arthritis Atherosclerosis of coronary artery of [place] heart without angina pectoris Cataracts, bilateral Colon cancer screening COPD (chronic obstructive pulmonary disease) Dyspnea Essential hypertension History of non-ST elevation myocardial infarction (NSTEMI) (01/02/20) Hyperlipidemia Ischemic cardiomyopathy Lung nodule DEEPAK (obstructive sleep apnea) Osteoporosis Periodic limb movement Retinal artery thrombosis, 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) Surgical History (Updated 01/27/22 @ 08:46 by Mayi Monday) History of cholecystectomy History of coronary artery stent placement History of hysterectomy History of lymph node excision History of reconstructive repair of rectocele Family History (Updated 01/27/22 @ 08:47 by Mayi Monday) Father Heart disease Hypertension Sister Heart disease Breast cancer Diabetes Hypertension Brother Heart disease Alzheimer's dementia Diabetes Hypertension Mother Cancer Bladder Heart disease Hypertension Social History (Updated 01/27/22 @ 08:47 by Mayi Monday) Smoking Status: Former smoker Tobacco: How many years used: 34 how long ago did patient quit smokin second hand exposure: No alcohol intake: current alcohol intake frequency: holidays/special occasions only substance use type: does not use caffeine: Yes Type: coffee Number of servings: 3 what type of physical activity do you participate in: walking HPI HPI HPI: BENJAMÍN SILVERMAN, is a 77 F who presents to the office today for screening colonoscopy. Patient's previous colonoscopy was in 2010 - per patient in [place]. Patient states that she does have issues with constipation does take MiraLAX half a capful daily and has daily bowel movements with that denies any blood. Patient denies any chronic abdominal pain/nausea/vomiting/reflux. Patient does not have a family history of colon cancer. Patient is not sure she drinks enough water she is drinks maybe a cup and a half throughout the day. ROS General General: No weight change, appetite, fatigue, colon cancer or breast cancer HEENT HEENT: No difficulty swallowing, eye injury, eye surgery, swollen glands or hoarseness Endo Endocrine: No thyroid disease, diabetes mellitus, thyroid cancer, Hair loss, heat intolerance or cold intolerance Skin Skin: No rash or changing moles Musc Musculoskeletal: Yes arthritis; No back problems, rheumatoid arthritis, gout or joint pain Cardio Cardiovascular: Yes murmur, heart disease, high blood pressure, heart attack and heart stent; No pacemaker, atrial fibrillation, palpitations, shortness of breat with exertion or chest pain Psych Psychiatric: No depression, anxiety or hearing voices Resp Respiratory: Yes shortness of breath, Yes sleep apnea, No cough, Yes COPD, No asthma, No emphysema and No wheezing Gastro Gastrointestinal: No abdominal pain, No nausea or vomiting, No diarrhea, Yes constipation, No blood in stool, No acid reflux, No hemorrhoids, No ulcers, No gallbladder problem and No black,tarry stools Emiliano Hematologic: Yes blood thinners, No blood disorders, No bleeding, No anemia and No blood clots Neuro Neurologic: No abnormal speech Exam Const General: cooperative, healthy appearing, comfortable and no acute distress HENMT Head: normocephalic and atraumatic Neck Neck: normal visual inspection Resp Effort & Inspection: normal respiratory effort Cardio Rate: regular rate GI Inspection: non-distended Palpation: soft, no guarding and nontender Skin General: no rashes or lesions noted Neuro General: patient oriented x3 Extrem General: normal to inspection Psych Affect: normal affect COVID (Procedure Consent) Procedure Criteria Procedure Criteria: Yes Elective The surgeon/proceduralist and patient have discussed in detail the risk of exposure to and/or potential harm posed by the COVID-19 virus with having a surgery/procedure at this time versus the risk of delaying the surgery/procedure. It is not possible to know either the risk of delaying the surgery or procedure or chance of getting an infection with perfect accuracy, but a joint decision was made between the patient and the surgeon/proceduralist to proceed at this time with the scheduled surgery/procedure as indicated on the consent form. Assessment and Plan Assessment and Plan (1) Colon cancer screening: Status: Acute (2) History of coronary artery stent placement: Status: Chronic Comment: PCI-JENAE- Mid RCA w/ 4.00 x 20 mm Synergy Stent and JENAE-Mid LAD w/ 4.00 x 20 mm Synergy Stent 01/02/20 Plan - Dr. Evon Cross MD: Will check with Dr. Ochoa's office patient is able to hold her Plavix for 3 to 5 days. Patient continue on her baby aspirin. Did prefer her to continue the Plavix will still plan to proceed with procedure. Encourage patient to drink at least 32 ounces of water daily. To help with her constipation Patient would prefer on Monday did have a booster unsure of the exact date for Covid vaccine booster I have discussed the above with the patient. I have offered the patient colonoscopy for evaluation. I have explained the risks/benefits of the procedure and described the procedure. I have discussed the risks with the patient, including but not limited to: infection, bleeding, perforation of the GI tract requiring emergency surgery, inability to complete the procedure, injury to any internal organs, complications of anesthesia, etc. - the patient understands and agrees to proceed. I have answered all the patient's questions to the patient's satisfaction and the patient has no further questions. The patient has been given instructions for the colon cleansing preparation. 1 day of clears MiraLAX Dulcolax Evon Cross M.D. Pager: [phone] [facility] [address] [place] [address], [address] [place] [address] Office: [phone] Coding Level of Care Code Off vis,new,level 3 Diagnoses Colon cancer screening Z12.11 History of coronary artery stent placement Z95.5 01/27/22 0916<Electronically signed by Evon Cross MD>Date Evon Cross MD
--- NOTE | 2022-02-23 10:46 | OP.COLON_ITS ---
Patient Name: Dahlia Bajwa Procedure Date: 02/23/2022 10:15 AM Date of : 1945 Age: 77 Procedure: Colonoscopy Indications: Screening for colorectal malignant neoplasm Providers: Evon Cross MD Referring MD: Julia Lofton MD Medicines: Monitored Anesthesia Care Patient Profile: This is a 77 year old female. Last Colonoscopy: 2010. Complications: No immediate complications. Procedure: Pre-Anesthesia Assessment: - Prior to the procedure, a History and Physical was performed, and patient medications and allergies were reviewed. The patient's tolerance of previous anesthesia was also reviewed. The risks and benefits of the procedure and the sedation options and risks were discussed with the patient. All questions were answered, and informed consent was obtained. Prior Anticoagulants: The patient has taken Plavix (clopidogrel), last dose was 5 days prior to procedure. ASA Grade Assessment: Per anesthesia. After reviewing the risks and benefits, the patient was deemed in satisfactory condition to undergo the procedure. After I obtained informed consent, the scope was passed under direct vision. Throughout the procedure, the patient's blood pressure, pulse, and oxygen saturations were monitored continuously. The Colonoscope was introduced through the anus and advanced to the cecum, identified by the appendiceal orifice, IC valve and transillumination. The colonoscopy was performed without difficulty. The patient tolerated the procedure well. The quality of the bowel preparation was good. Scope In: 10:18:44 AM Scope Withdrawal Time 0 hours 7 minutes 12 seconds Scope Out: 10:40:05 AM Total Procedure Duration Time 0 hours 21 minutes 21 seconds Findings: The perianal and digital rectal examinations were normal. A few small-mouthed diverticula were found in the sigmoid colon. The exam was otherwise without abnormality on direct and retroflexion views. Impression: - Diverticulosis in the sigmoid colon. - The examination was otherwise normal on direct and retroflexion views. - No specimens collected. Recommendation: - Discharge patient to home. - Resume previous diet. - Continue present medications. - Repeat colonoscopy not needed due to age. Procedure Code(s): --- Professional --- G0121, PT, Colorectal cancer screening; colonoscopy on individual not meeting criteria for high risk Diagnosis Code(s): --- Professional --- Z12.11, Encounter for screening for malignant neoplasm of colon K57.30, Diverticulosis of large intestine without perforation or abscess without bleeding CPT copyright 2017 [employer]. All rights reserved. 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 MD Evon Madrid MD 02/23/2022 10:46:19 AM This report has been signed electronically. Number of Addenda: 0 Note Initiated On: 02/23/2022 10:15 AM
--- NOTE | 2022-02-23 10:47 | OP.CCLET_ITS ---
02/23/2022 Julia Lofton MD [address] [place] [address] [place] [address] Re : Colonoscopy procedure for Dahlia Bajwa Dear Dr. Lofton This procedure was performed on Wednesday, February 23, 2022. My impressions and recommendations are as follows: Impressions : - Diverticulosis in the sigmoid colon. - The examination was otherwise normal on direct and retroflexion views. - No specimens collected. Recommendations : - Discharge patient to home. - Resume previous diet. - Continue present medications. - Repeat colonoscopy not needed due to age. My findings are described in the full procedure note, which is enclosed. If I can be of further assistance, please feel free to contact me at Doctor phone number(s): , Work: . Sincerely, MD Evon Madrid MD 02/23/2022 10:46:19 AM This report has been signed electronically.
== END 2022-02-23 11:27 | disposition home or self-care (01) ==
LOC: EN 08:46 → AC 08:47
PROVIDERS: PCP Internal Medicine; Referring Provider Internal Medicine; Visit Provider Surgery
PROC: 0DJD8ZZ Inspection of Lower Intestinal Tract, Via Natural or Artificial Opening Endoscopic (ICD-10-PCS; CPT 45378; principal; 2022-02-23 10:25)
DX: Z12.11 Encounter for screening for malignant neoplasm of colon (principal); J44.9 Chronic obstructive pulmonary disease, unspecified; K57.30 Diverticulosis of large intestine without perforation or abscess without bleeding; E78.5 Hyperlipidemia, unspecified; I25.5 Ischemic cardiomyopathy; I10 Essential (primary) hypertension; I25.10 Atherosclerotic heart disease of native coronary artery without angina pectoris; Z87.891 Personal history of nicotine dependence; I25.2 Old myocardial infarction; G47.33 Obstructive sleep apnea (adult) (pediatric); Z95.5 Presence of coronary angioplasty implant and graft; Z90.49 Acquired absence of other specified parts of digestive tract; Z90.710 Acquired absence of both cervix and uterus
CPT/HCPCS: G0121; J7120; J2405

== ENCOUNTER → 2022-03-30 | Outpatient (CLI) | payer MEDICARE, SELFPAY ==
[2020-01-03 08:21] VITALS: BMI 26.7
[2022-03-30 12:48] LABS: Anion Gap 7 (5-15); BUN 12 mg/dL (7-18); BUN/Creat Ratio 14.9 RATIO (10-20); Calcium,Total 9.1 mg/dL (8.5-10.1); Chloride 106 mmol/L (98-107); Creatinine, Serum 0.81 mg/dL (0.55-1.02); EST Glomerular Filtration Rate 73 mL/min (>60); Est Glom Filt Rate - Afr Amer 88 mL/min (>60); Glucose 100 mg/dL (74-106); Sodium Level 141 mmol/L (136-145)
== END | disposition home or self-care (01) ==
LOC: BIMLAB 10:24
PROVIDERS: PCP Internal Medicine; Referring Provider Internal Medicine; Visit Provider Internal Medicine
DX: I10 Essential (primary) hypertension (principal)
CPT/HCPCS: 36415; 80048

== ENCOUNTER → 2022-05-24 | Outpatient (CLI) | payer MEDICARE, SELFPAY ==
[2020-01-03 08:21] VITALS: BMI 26.7
[2022-05-24 13:16] LABS: Mucous, Urine 0 SEEN /hpf (<or=2+); Red Blood Cells-Urine 0 SEEN /hpf (0-5)
[2022-05-24 15:14] LABS: Color, Urine Straw (Yellow); Glucose, Dipstick Normal (Normal); Ketone-Dipstick Negative (Negative); Leukocyte Esterase-Dipstick 500 /ul (Negative); Nitrite-Dipstick Positive (Negative); Occult Blood-Urine 10 /ul (Negative); Protein-Dipstick Negative (Negative); Urine Bilirubin Dipstick Negative (Negative); Urine Clarity Cloudy (Clear); Urine Urobilinogen Normal (Normal)
[2022-05-24 15:33] LABS: Bacteria 1+ /hpf (None Seen); Squamous Epithelial Cells - UA 0-5 SEEN /hpf (5-10); White Blood Cells 50-100 SEEN /hpf (0-5)
== END | disposition home or self-care (01) ==
LOC: LABSPEC 13:15
PROVIDERS: PCP Internal Medicine; Referring Provider Internal Medicine; Visit Provider Internal Medicine
DX: R10.9 Unspecified abdominal pain (principal)
CPT/HCPCS: 81001

== ENCOUNTER → 2022-05-27 | Outpatient (CLI) | payer MEDICARE, SELFPAY ==
[2020-01-03 08:21] VITALS: BMI 26.7
[2022-05-27 15:50] LABS: Mucous, Urine 0 SEEN /hpf (<or=2+); Red Blood Cells-Urine 0 SEEN /hpf (0-5)
[2022-05-27 16:37] LABS: Color, Urine Yellow (Yellow); Glucose, Dipstick Normal (Normal); Ketone-Dipstick Negative (Negative); Leukocyte Esterase-Dipstick 500 /ul (Negative); Nitrite-Dipstick Positive (Negative); Occult Blood-Urine 50 /ul (Negative); Protein-Dipstick 30 mg/dl (Negative); Urine Bilirubin Dipstick Negative (Negative); Urine Clarity Cloudy (Clear); Urine Urobilinogen Normal (Normal)
[2022-05-27 17:06] LABS: White Blood Cells >100 SEEN /hpf (0-5)
[2022-05-27 17:07] LABS: Bacteria 1+ /hpf (None Seen); Squamous Epithelial Cells - UA 0-5 SEEN /hpf (5-10)
== END | disposition home or self-care (01) ==
LOC: LABSPEC 15:43
PROVIDERS: PCP Internal Medicine; Referring Provider Internal Medicine; Visit Provider Internal Medicine
DX: R82.90 Unspecified abnormal findings in urine (principal); R10.9 Unspecified abdominal pain
CPT/HCPCS: 81001; 87077; 87086; 87088; 87186

== ENCOUNTER → 2022-06-09 | Outpatient (CLI) | payer MEDICARE, SELFPAY ==
[2020-01-03 08:21] VITALS: BMI 26.7
--- NOTE | 2022-06-09 14:15 | CT_ITS ---
STUDY: CT ABDOMEN AND PELVIS WITH CONTRAST REASON FOR EXAM: Female, 77 years old. Right Flank Pain RADIATION DOSAGE (If Supplied By Facility): CTDIvol = ( 17.08 ) mGy, DLP = ( 854.07 ) mGycm TECHNIQUE: Transaxial images were obtained from the dome of the diaphragm to the symphysis pubis with oral contrast. Oral and amp; IV Readi-CAT and amp; 100mL Isovue-300 was administered. Sagittal and coronal images were reconstructed. Individualized dose optimization techniques were used for this CT. COMPARISON: Comparison is made with prior study dated 03/16/2017. FINDINGS: Stable mild degree of increased linear markings at the lung bases. Coronary artery calcification. Normal liver. There are surgical clips in the gallbladder fossa consistent with a prior cholecystectomy. Normal spleen. Normal pancreas. Normal bilateral adrenal glands. Mild degree of bilateral renal pelvic dilatation. Normal visualized stomach. Normal small intestine. There are multiple colonic diverticula consistent with diverticulosis. A moderate amount of fecal material is seen in the right hemicolon. The appendix is visualized and appears normal. There is diffuse atherosclerotic calcification of the abdominal aorta and its major visceral branches, without a demonstrated aneurysm. Normal inferior vena cava. Normal retroperitoneum. Normal urinary bladder. There is absence of the uterus consistent with a prior hysterectomy. Normal abdominal wall. There are diffuse degenerative changes of the visualized lumbar spine. CT/Abdomen/Pelvis WITH Contrast IMPRESSION: Scattered sigmoid diverticula. Status post cholecystectomy and hysterectomy. Electronically Signed: Hector Mckeon MD at 14:38 EDT ,
[2022-06-09 14:36] LABS: CREATININE FINGERSTICK < 0.9 mg/dL (0.55-1.02); EGFR FINGERSTICK > 60.0000 mL/min (>60)
== END | disposition home or self-care (01) ==
LOC: CT 14:05
PROVIDERS: PCP Internal Medicine; Referring Provider Internal Medicine; Visit Provider Internal Medicine
DX: R10.9 Unspecified abdominal pain (principal); I10 Essential (primary) hypertension
CPT/HCPCS: 74177; Q9967

== ENCOUNTER → 2022-06-15 | Outpatient (CLI) | payer MEDICARE, SELFPAY ==
[2020-01-03 08:21] VITALS: BMI 26.7
[2022-06-15 08:59] LABS: Mucous, Urine 0 SEEN /hpf (<or=2+)
[2022-06-15 12:11] LABS: Color, Urine Yellow (Yellow); Glucose, Dipstick Normal (Normal); Ketone-Dipstick Negative (Negative); Leukocyte Esterase-Dipstick 500 /ul (Negative); Nitrite-Dipstick Negative (Negative); Occult Blood-Urine 50 /ul (Negative); Protein-Dipstick 100 mg/dl (Negative); Specific Gravity, Urine 1.015 (1.002-1.030); Urine Bilirubin Dipstick Negative (Negative); Urine Clarity Cloudy (Clear); Urine Urobilinogen Normal (Normal)
[2022-06-15 12:21] LABS: Bacteria 1+ /hpf (None Seen); Red Blood Cells-Urine 0-5 SEEN /hpf (0-5); Squamous Epithelial Cells - UA 0-5 SEEN /hpf (5-10); White Blood Cells 25-50 SEEN /hpf (0-5)
== END | disposition home or self-care (01) ==
LOC: LABSPEC 08:58
PROVIDERS: PCP Internal Medicine; Referring Provider Internal Medicine; Visit Provider Internal Medicine
DX: N39.0 Urinary tract infection, site not specified (principal)
CPT/HCPCS: 81001; 87077; 87086; 87088; 87186

== ENCOUNTER → 2022-06-17 | Outpatient (CLI) | payer MEDICARE, SELFPAY ==
[2020-01-03 08:21] VITALS: BMI 26.7
[2022-06-17 13:11] LABS: Absolute Lymphocyte Count 2.28 X10^3/uL (0.83-4.51); Absolute Neutrophil Count 4.5 X10^3/uL (2.0-7.7); Basophil# 0.03 X10^3/uL; Basophil% 0.4 % (0-1); Eosinophil# 0.18 X10^3/uL; Eosinophils% 2.4 % (0-5); Hematocrit 39.8 % (37-47); Hemoglobin 12.9 g/dL (12.0-15.0); Lymphocyte # 2.28 X10^3/ul (0.83-4.51); Lymphocyte % 29.8 % (19-41); Mean Corp Hgb Conc 32.4 g/dL (32-36); Mean Corpuscular Hgb 28.9 pg (27.0-32.0); Mean Corpuscular Volume 89.2 fL (81-99); Mean Platelet Vol. 10.8 fl (6.2-12.0); Monocyte# 0.66 X10^3/uL; Monocyte% 8.6 % (0-10); NRBC Flagged by Analyzer 0 % (0-5); Neutrophil # 4.45 X10^3/uL (2.7-7.7); Neutrophil % 58.3 % (47-70); Platelet Count 291 K/mm3 (150-450); RBC Distribution Width CV 12.6 % (11.6-14.6); RBC Distribution Width SD 41.4 fl (35.1-43.9); Red Blood Count 4.46 M/mm3 (4.2-5.4); White Blood Count 7.6 K/mm3 (4.4-11.0)
[2022-06-17 13:47] LABS: BNP,B-Type NATRIURETIC PEPTIDE 183.1 pg/mL (0-100)
[2022-06-17 13:50] LABS: Anion Gap 5 (5-15); BUN 15 mg/dL (7-18); BUN/Creat Ratio 18.6 RATIO (10-20); Calcium,Total 9.4 mg/dL (8.5-10.1); Chloride 108 mmol/L (98-107); Creatinine, Serum 0.81 mg/dL (0.55-1.02); EST Glomerular Filtration Rate 73 mL/min (>60); Est Glom Filt Rate - Afr Amer 89 mL/min (>60); Glucose 90 mg/dL (74-106); Potassium 4.1 mmol/L (3.5-5.1); Sodium Level 141 mmol/L (136-145)
== END | disposition home or self-care (01) ==
LOC: LAB 11:42
PROVIDERS: PCP Internal Medicine; Referring Provider Nurse Practitioner Gerontology; Visit Provider Nurse Practitioner Gerontology
DX: R06.00 Dyspnea, unspecified (principal)
CPT/HCPCS: 36415; 80048; 83880; 85025

== ENCOUNTER 2022-06-19 01:13 | Emergency (ER) | payer MEDICARE, SELFPAY ==
[2022-06-17 13:41] VITALS: BMI 26.7
[2022-06-19 01:15] VITALS: BP 161/79; PULSE 70; RESP 17; TEMP 36.6; O2SAT 96; BMI 27.6
--- NOTE | 2022-06-19 01:57 | EKG12_ITS ---
Test Reason : CP Blood Pressure : / mmHG Vent. Rate : 062 BPM Atrial Rate : 062 BPM P-R Int : 176 ms QRS Dur : 082 ms QT Int : 422 ms P-R-T Axes : 071 006 052 degrees QTc Int : 428 ms Normal sinus rhythm Septal infarct , age undetermined Abnormal ECG Confirmed by EULOGIO SPAULDING, KELVIN ([id number]), advertising editor JAD TAY ([id number]) on 06/21/2022 9:12:19 AM Referred By: VALERIA Confirmed By:CHRISTELLE KRISHNAN MD
--- NOTE | 2022-06-19 02:11 | EX.ED.DYSGE1 ---
HPI History of Present Illness Chief Complaint: Chest Other Narrative Narrative: Patient is a 77-year-old female with past medical history of hypertension hyperlipidemia and CAD requiring cardiac stent placement in 2019. She states that this past week they were having a garage sale and she was doing lots of lifting. She denies any direct trauma or sudden onset pain. However a few days after doing this she noticed some pain in her left shoulder region which radiates down towards her elbow. She states pain has been constant for 3 to 4 days. She states it is slightly worse with motion. She denies any nausea vomiting diaphoresis or shortness of breath. She states that she has been trying [id number] medications with minimal symptom improvement and therefore I concerned that this could be cardiac in nature and therefore comes in for evaluation. [facility] Medical History Abnormal urinalysis Arthritis Arthritis Atherosclerosis of coronary artery of [place] heart without angina pectoris Cardiology follow-up encounter Cataracts, bilateral Chronic cough Colon cancer screening COPD (chronic obstructive pulmonary disease) Dyspnea Essential hypertension Former smoker High cholesterol History of echocardiogram History of heart attack History of non-ST elevation myocardial infarction (NSTEMI) (01/02/20) History of stress test Hyperlipidemia Hypertension Ischemic cardiomyopathy Lung nodule DEEPAK (obstructive sleep apnea) Osteoporosis Periodic limb movement Post-menopausal Retinal artery thrombosis, 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) Right flank pain Shortness of breath on exertion Sleep apnea TIA (transient ischemic attack) UTI (urinary tract infection) Wears dentures Wears glasses Home Medications aspirin 81 mg chewable tablet 81 mg PO DAILY@0800 preventative 01/02/20 [History Last Taken 02/20/22] nitroglycerin 0.4 mg sublingual tablet 0.4 mg sublingual Q5-15M PRN chest pain #25 tabs 02/23/20 [Rx Last Taken Unknown] clopidogrel 75 mg tablet 75 mg PO DAILY Heart #90 tabs 03/10/21 [Rx Last Taken 02/20/22] acidophilos 1 tab PO DAILY 12/28/21 [History Last Taken Unknown] ascorbic acid (vitamin C) 500 mg capsule 500 mg PO DAILY 12/28/21 [History Last Taken Unknown] d-mannose 500 mg capsule (AZO D-Mannose) 500 mg PO DAILY 12/28/21 [History Last Taken Unknown] losartan 50 mg tablet 50 mg PO DAILY BP #90 tabs 12/28/21 [Rx Last Taken 02/23/22 07:30] cholecalciferol (vitamin D3) 1,250 mcg (50,000 unit) capsule 1,250 mcg PO QWEEK #14 caps 12/29/21 [Rx Last Taken Unknown] atorvastatin 40 mg tablet 40 mg PO QHS Cholesterol #90 tabs 06/10/22 [Rx Last Taken Unknown] ciprofloxacin HCl 500 mg tablet 500 mg PO BID #10 tabs 06/17/22 [Rx Last Taken Unknown] furosemide 40 mg tablet 40 mg PO .ONCE A WEEK Dieutic 06/17/22 [History Last Taken Unknown] metoprolol succinate 50 mg tablet,extended release 24 hr 50 mg PO DAILY 06/17/22 [History Last Taken Unknown] gabapentin 100 mg capsule 100 mg PO BID PRN pain #20 caps 06/19/22 [Rx Last Taken Unknown] methocarbamol 500 mg tablet 500 mg PO 4X/DAY PRN PRN Muscle pain/spasm 10 days #40 tabs 06/19/22 [Rx Last Taken Unknown] Allergy/AdvReac Type Severity Reaction Status Date / Time Sulfa (Sulfonamide AdvReac Rash Verified 06/19/22 01:21 Antibiotics) Family History Father Heart disease Hypertension Sister Heart disease Breast cancer Diabetes Hypertension Brother Heart disease Alzheimer's dementia Diabetes Hypertension Mother Cancer Bladder Heart disease Hypertension Surgical History History of cardiac catheterization History of cholecystectomy History of coronary artery stent placement History of hysterectomy History of lymph node excision History of reconstructive repair of rectocele Social History Smoking Status: Former smoker Tobacco: How many years used: 34 how long ago did patient quit smokin second hand exposure: No alcohol intake: current alcohol intake frequency: holidays/special occasions only substance use type: does not use caffeine: Yes Type: coffee Number of servings: 3 what type of physical activity do you participate in: walking ROS ROS ED Constitutional Constitutional ED: Denies chills or fever(s) ENT ENT ED: Denies sore throat Cardiovascular Cardiovascular: Denies chest pain, palpitations or racing heartbeat Respiratory/Chest Respiratory/Chest: Denies cough or dyspnea Gastrointestinal Gastrointestinal: Denies abdominal pain, diarrhea, nausea or vomiting Genitourinary Genitourinary ED: Denies dysuria Musculoskeletal Musculoskeletal: Reports arthralgias and myalgias; Denies back pain or neck pain Integumentary Denies Abrasions or rash Neurologic Neurologic: Denies headache(s) or paresthesias Hematologic/Lymphatic Hematologic/Lymphatic: Reports easy bleeding and easy bruising EXAM Physical Exam Const Vital Signs: 06/19/22 01:14 06/19/22 01:15 Temperature 97.8 F Temperature Source Temporal Pulse Rate 70 Respiratory Rate 17 Respiratory Effort Short of Breath Blood Pressure 161/79 H Blood Pressure Mean 106 Pulse Ox 96 Oxygen Delivery Method Room Air Positive well nourished and well developed General Appearance ED: well developed Eyes PERRL and EOMs intact bilaterally Neck supple Neck Narrative: No bony deformity or step-off of the cervical spine no midline pain with palpation. Negative Spurling sign bilaterally Chest Wall palpation of chest normal Resp normal respiratory effort and clear to auscultation bilaterally Cardio regular rate and regular rhythm Rate: other Other Details: Radial pulses are plus 2 out of 4 bilaterally are equal and symmetric Carotid pulses are equal and symmetric as well GI normal to inspection, nondistended, normoactive bowel sounds, non-tender and non-distended GI Narrative: No voluntary guarding or rigidity no pulsatile mass Auscultation: normoactive bowel sounds Palpation: soft Extremity Extremity Narrative: Left upper extremity is neurovascularly intact; AIN/PIN are intact and normal. Patient has mild diffuse tenderness to palpation of the left shoulder without obvious bony deformity joint effusion or sulcus sign. There is also muscular tension and spasm noted along the upper trapezius and rhomboid muscle belly. Remainder the exam is normal Neuro oriented x3, CN's II-XII intact bilaterally and no sensory deficits noted Sensorium / Orientation: alert Motor Exam: strength 5/5 throughout Psych mental status grossly normal Skin no rashes or lesions noted Skin Narrative: No overlying soft tissue changes to suggest trauma or infection MDM MDM MDM Narrative Medical decision making narrative: Patient presented to the ER with stable vitals and report of constant pain in the left shoulder/upper arm region with radiation towards the elbow most consistent with a superficial nerve impingement. However as she did have a remote history of cardiac disease a basic cardiac work-up was obtained. EKG showed sinus rhythm. Chest x-ray revealed no acute lung pathology. The patient had constant pain for 3 to 4 days and therefore with a normal EKG and a troponin that was normal at 9 this indicates there is no signs of cardiac damage. The patient was given Toradol Norflex and gabapentin and did report improvement of her pain. Therefore at this time as her physical exam and work-up points that this is musculoskeletal in nature and no changes to suggest cardiovascular disease she is otherwise safe for discharge with symptomatic care. Lab Data Attestation: I reviewed the patient's lab results. Labs: Laboratory Results - last 24 hr 06/19/22 06/19/22 01:35 01:35 WBC 9.1 RBC 4.32 Hgb 12.4 Hct 38.5 MCV 89.1 MCH 28.7 MCHC 32.2 RDW Std Deviation 42.1 RDW Coeff of Vlad 12.8 Plt Count 274 MPV 10.5 Immature Gran % (Auto) 0.600 Neut % (Auto) 57.5 Lymph % (Auto) 31.5 Powell % (Auto) 8.1 Eos % (Auto) 1.9 Baso % (Auto) 0.4 Absolute Neuts (auto) 5.2 Absolute Lymphs (auto) 2.86 Nucleated RBC % 0 Sodium 141 Potassium 3.7 Chloride 107 Carbon Dioxide 28.0 Anion Gap 6 BUN 22 H Creatinine 0.98 Estim Creat Clear Calc 45.00 Est GFR (MDRD) Af Amer 71 Est GFR (MDRD) Non-Af 58 L BUN/Creatinine Ratio 22.4 H Glucose 120 H Calcium 9.4 Magnesium 2.2 Troponin I High Sens 9 Radiography Diagnostic Testin view chest x-ray as interpreted by the emergency medicine physician reveals no acute infiltrate pneumothorax or pleural effusion Discharge Plan Triage Chief Complaint: Chest Other Other Complaint: Chest Pain Upper Extremity Injury ED Provider: Cade Richardson Dx/Rx/DC Orders Clinical Impression: Muscle spasm of shoulder region, Radiculopathy of arm, Essential hypertension, History of coronary artery stent placement Instructions: ED Muscle Spasm, ED Radiculopathy, Cervical Prescriptions: New methocarbamol 500 mg tablet 500 mg PO 4X/DAY PRN PRN (Reason: Muscle pain/spasm) 10 Days Qty: 40 0RF gabapentin 100 mg capsule 100 mg PO BID PRN (Reason: pain) Qty: 20 0RF No Action clopidogrel 75 mg tablet 75 mg PO DAILY Qty: 90 3RF ascorbic acid (vitamin C) 500 mg capsule 500 mg PO DAILY acidophilos 1 tab PO DAILY AZO D-Mannose 500 mg capsule 500 mg PO DAILY losartan 50 mg tablet 50 mg PO DAILY Qty: 90 2RF cholecalciferol (vitamin D3) 1,250 mcg (50,000 unit) capsule 1,250 mcg PO QWEEK Qty: 14 3RF metoprolol succinate 50 mg tablet extended release 24 hr 50 mg PO DAILY furosemide 40 mg tablet 40 mg PO .ONCE A WEEK Rx Instructions: 2 tabs a week aspirin 81 MG tablet,chewable 81 mg PO DAILY@0800 nitroglycerin 0.4 mg tablet, sublingual 0.4 mg SUBLINGUAL Q5-15M PRN (Reason: chest pain) Qty: 25 3RF Rx Instructions: do not exceed 3 doses per episode atorvastatin 40 mg tablet 40 mg PO QHS Qty: 90 3RF ciprofloxacin HCl 500 mg tablet 500 mg PO BID Qty: 10 0RF Primary Care Provider: Julia Lofton Referrals: Julia Lofton MD [Primary Care Provider] - Disposition Disposition: Home, Self Care
[2022-06-19] MEDS: Gabapentin 100 MG Capsule PO (02:12)
[2022-06-19] MEDS: Orphenadrine 60 MG/2 ML Ampul IV (02:16)
[2022-06-19] MEDS: Ketorolac 15 MG/ML Vial IV (02:16)
[2022-06-19 02:24] LABS: Absolute Lymphocyte Count 2.86 X10^3/uL (0.83-4.51); Absolute Neutrophil Count 5.2 X10^3/uL (2.0-7.7); Basophil# 0.04 X10^3/uL; Basophil% 0.4 % (0-1); Eosinophil# 0.17 X10^3/uL; Eosinophils% 1.9 % (0-5); Hematocrit 38.5 % (37-47); Hemoglobin 12.4 g/dL (12.0-15.0); Lymphocyte # 2.86 X10^3/ul (0.83-4.51); Lymphocyte % 31.5 % (19-41); Mean Corp Hgb Conc 32.2 g/dL (32-36); Mean Corpuscular Hgb 28.7 pg (27.0-32.0); Mean Corpuscular Volume 89.1 fL (81-99); Mean Platelet Vol. 10.5 fl (6.2-12.0); Monocyte# 0.74 X10^3/uL; Monocyte% 8.1 % (0-10); NRBC Flagged by Analyzer 0 % (0-5); Neutrophil # 5.22 X10^3/uL (2.7-7.7); Neutrophil % 57.5 % (47-70); Platelet Count 274 K/mm3 (150-450); RBC Distribution Width CV 12.8 % (11.6-14.6); RBC Distribution Width SD 42.1 fl (35.1-43.9); Red Blood Count 4.32 M/mm3 (4.2-5.4); White Blood Count 9.1 K/mm3 (4.4-11.0)
[2022-06-19 02:35] LABS: Anion Gap 6 (5-15); BUN 22 mg/dL (7-18); BUN/Creat Ratio 22.4 RATIO (10-20); Calcium,Total 9.4 mg/dL (8.5-10.1); Chloride 107 mmol/L (98-107); Creatinine, Serum 0.98 mg/dL (0.55-1.02); EST Glomerular Filtration Rate 58 mL/min (>60); Est Glom Filt Rate - Afr Amer 71 mL/min (>60); Glucose 120 mg/dL (74-106); Magnesium 2.2 mg/dL (1.6-2.6); Potassium 3.7 mmol/L (3.5-5.1); Sodium Level 141 mmol/L (136-145); Troponin-I HS 9 pg/mL (3.0-54.0)
--- NOTE | 2022-06-19 02:40 | RAD_ITS ---
EXAM: XR CHEST, 2 VIEWS CLINICAL INDICATION: chest pain chest pain TECHNIQUE: Frontal and lateral views of the chest. This report was created using [employer] report generation technology. COMPARISON: 10/24/2020. FINDINGS: LUNGS AND PLEURAL SPACES: Unremarkable. No consolidation or edema. No pneumothorax. No effusion. HEART: Unremarkable. Cardiac silhouette not enlarged. MEDIASTINUM: Central airways and mediastinal contour are unremarkable. BONES/JOINTS: There are multilevel degenerative changes in the visualized spine. SOFT TISSUES: Unremarkable. VASCULATURE: There is atherosclerotic calcification of the aortic arch. RAD/Chest PA and Lateral IMPRESSION: No acute findings in the chest. Electronically Signed: Nixon Weldon MD at 3:27 EDT Reading Location ID and State: [facility] / [place] , Service support ,
[2022-06-19 03:27] VITALS: BP 138/74; PULSE 74; RESP 17; TEMP 36.9; O2SAT 99
== END 2022-06-19 03:28 | disposition home or self-care (01) ==
PROVIDERS: Emergency Provider Emergency Medicine; PCP Internal Medicine; Visit Provider Emergency Medicine
DX: M62.838 Other muscle spasm (principal); J44.9 Chronic obstructive pulmonary disease, unspecified; I25.10 Atherosclerotic heart disease of native coronary artery without angina pectoris; Z87.891 Personal history of nicotine dependence; E78.00 Pure hypercholesterolemia, unspecified; I25.5 Ischemic cardiomyopathy; I10 Essential (primary) hypertension; M19.90 Unspecified osteoarthritis, unspecified site; G47.33 Obstructive sleep apnea (adult) (pediatric); M81.0 Age-related osteoporosis without current pathological fracture; G47.61 Periodic limb movement disorder; Z78.0 Asymptomatic menopausal state; Z86.73 Personal history of transient ischemic attack (TIA), and cerebral infarction without residual deficits; Z79.899 Other long term (current) drug therapy; Z79.82 Long term (current) use of aspirin; M54.12 Radiculopathy, cervical region
CPT/HCPCS: 71046; 80048; 83735; 84484; 85025; 93005; 99285; A4216

== ENCOUNTER → 2022-06-22 | Outpatient (CLI) | payer MEDICARE, SELFPAY ==
[2022-06-17 13:41] VITALS: BMI 26.7
--- NOTE | 2022-06-22 10:27 | RAD_ITS ---
STUDY: X-RAY - CERVICAL SPINE REASON FOR EXAM: Female, 77 years old. Neck pain and headache TECHNIQUE: 3 view(s) of the cervical spine were obtained. COMPARISON: None FINDINGS: Normal anterior atlantoaxial articulation. Normal odontoid process. There is straightening of the normal cervical lordosis. There is diffuse demineralization of the cervical spine. There is multi-level degenerative disc disease with multilevel disc space narrowing. The soft tissue structures are unremarkable. RAD/Cerv Spine 2 or 3 Views IMPRESSION: Multilevel degenerative changes, no acute findings Electronically Signed: Favio López MD at 13:32 EDT ,
--- NOTE | 2022-06-22 10:27 | RAD_ITS ---
STUDY: X-RAY - LEFT SHOULDER REASON FOR EXAM: Female, 77 years old. Shoulder pain for one week. Neck pain. TECHNIQUE: 4 view(s) of the shoulder. COMPARISON: None. FINDINGS: There is moderate degenerative arthrosis of the glenohumeral articulation. Normal acromioclavicular joint. Normal acromion. There is no acute fracture, dislocation or destructive osseous pathology. There is demineralization of the humerus and visualized osseous structures. The soft tissue structures are unremarkable. Normal visualized pulmonary apex. RAD/Shoulder min 2 Views IMPRESSION: Osteopenia and degenerative changes of the glenohumeral joint. There is no acute abnormality. Electronically Signed: Lopez Hawkins DO at 23:08 EDT ,
== END | disposition home or self-care (01) ==
LOC: RAD 10:26
PROVIDERS: PCP Internal Medicine; Referring Provider Internal Medicine; Visit Provider Internal Medicine
DX: M25.512 Pain in left shoulder (principal); M54.12 Radiculopathy, cervical region
CPT/HCPCS: 72040; 73030

== ENCOUNTER 2022-07-04 09:46 | Outpatient (RCR) | payer MEDICARE, SELFPAY ==
[2022-06-17 13:41] VITALS: BMI 26.7
--- NOTE | 2022-07-04 10:58 | HP.PTEVAL_ITS ---
Patient's Visit Information BENJAMÍN SILVERMAN is a 77 year old F referred to Physical Therapy by Dr. Julia Lofton MD with a diagnosis of Cervical and Left Shoulder Pain. Date of Evaluation: 07/04/22 Physical Therapist: Mayi Ortiz DPT - Visit Plan Frequency: 2x /Week Duration: 4 Weeks Plan: Posture- mechanical traction (attempt manual first)- US PRN. HEP Given IE: Postural Correction, supine and seated chin tucks, scapular retractions, upper trap stretch, levator stretch - Subjective Patient reports that she has a pinched nerve on the left side. The pain comes and goes- when it hurts it hurts. Went to the ER with concerns with heart issues but was cleared. Went to see PCP who sent her to therapy. Pain is located in the shoulder and sometimes radiates to the forearm. Right hand dominate. Describes the pain as achy. Worst: 7/10. Agg: nothing it just starts. Best: 0/10 Eases: nothing changes. Normally it doesn't take more than 10 min to go away. She gets up and moves around when it bothers her. It doesn't stop her from doing anything. No N/T in the fingers. She has never had neck issues before. No issue with finger dexterity or continuous improvement facilitator strength. No HERNANDEZ, blurred vision or dizziness. She reports no neck pain. Sleep: disturbed- hard to get comfortable and wakes her up- side sleeper- both sides. She has had x- rays or both her neck and her shoulder. Per X-ray reports: Cervical: here is multi-level degenerative disc disease with multilevel disc space narrowing- Shoulder: Osteopenia and degenerative changes of the glenohumeral joint. There is no acute abnormality. She feels that the pain is staying the same. No trauma to the cervical spine- denies any MVA's. She is pretty active around the home and walks [place]. She likes to garden and turcios. PMHx/Meds: no changes since 06/19/22 ER visit. - Objective Posture: severe FH, RS- unable to correct severe FH but improved with VC's. Gait: no deviation noted good arm swing and trunk rotation. Palpation: tender along upper trap, insertion of levator sub occipitals, cervical paraspinals and along the medial border of the scapula. ROM: Cervical Spine: all motions limited by 75% pain with SB to the left Strength: Scap: fair minus, Shoulder: 4+/5. Sensation/Reflex: WFL. Myotome Testing: WFL. Special Test: Spurling: positive, Distraction: diminishes s/s. Child Care Coordinator: Right: 40 lbs and Left: 20lbs - Goals Goal 1:: Patient will be I with HEP and progression Goal Time Frame: 4-6 Weeks Goal 2:: Patient will maintain proper posture t/o tx session to demo increased scap s/s Goal Time Frame: 4-6 Weeks Goal 3:: Patient will report no peripheral symptoms Goal Time Frame: 4-6 Weeks Goal 4:: Patient will report 80% improvement. Goal Time Frame: 4-6 Weeks - Rehabilitation Potential Physical Therapy Diagnosis: Patient presents with hypomobility- she has decreased cervical ROM, scapular s/s and muscular endurance leading to peripheral symptoms and poor posture Rehabilitation Potential: Good - Anticipated Interventions Patient/Client Instruction: Educate patient on: Benefits of Fitness Program Therapeutic Exercise to Include: Strength training, Endurance training, Coordination, Agility training, Body mechanics, Postural training, Flexibilty training, Neuromotor development, Passive ROM, Active ROM, Dynamic Lumbar Stabilization, Scapular Strength/Stabilization For the Purpose of:: To improve muscle performance and motor function TENS: Yes Cryotherapy (ice pack, ice massage): Yes Thermo therapy (hot pack): Yes Ultrasound (thermal/non thermal): Yes Thank you for the opportunity to evaluate your patient. For Medicare and Medicare HMO plans, please review the plan of care and approve it. It will need to be FAXED BACK to us at [phone] for Medicare purposes. For Medicare only, by signing this I certify the plan of care. Please let me know if there are questions or concerns regarding this plan of care. Physician Signature: Date:
--- NOTE | 2022-09-15 06:54 | HP.PT.NRP ---
BENJAMÍN SILVERMAN was seen in my office for initial evaluation on 07/04/22. The following Plan of Care was established for this patient: Initial Frequency: 2x /Week Initial Duration: 4 Weeks Patient/Client Instruction: Educate patient on: Benefits of Fitness Program Therapeutic Exercise to Include: Strength training, Endurance training, Coordination, Agility training, Body mechanics, Postural training, Flexibilty training, Neuromotor development, Passive ROM, Active ROM, Dynamic Lumbar Stabilization, Scapular Strength/Stabilization For the Purpose of:: To improve muscle performance and motor function TENS: Yes Cryotherapy (ice pack, ice massage): Yes Thermo therapy (hot pack): Yes Ultrasound (thermal/non thermal): Yes This patient was last seen in our office . Pertinent comments regarding their Physical therapy will appear below: Patient has not attended physical therapy in over 30 days- appropriate to be discharged and return to the MD as needed. At this point I will be discontinuing this patient from physical therapy. I would be happy to see this patient again in the future if found appropriate by the physician. Thank you! VIOLET DumontT
== END 2022-07-04 19:00 | disposition home or self-care (01) ==
LOC: PT 09:46
PROVIDERS: PCP Internal Medicine; Referring Provider Internal Medicine; Visit Provider Internal Medicine
DX: M25.512 Pain in left shoulder (principal); M54.12 Radiculopathy, cervical region
CPT/HCPCS: 97110; 97162

== ENCOUNTER → 2022-08-31 | Outpatient (CLI) | payer MEDICARE, SELFPAY ==
[2022-06-17 13:41] VITALS: BMI 26.7
[2022-08-31 11:25] LABS: Absolute Lymphocyte Count 2.05 X10^3/uL (0.83-4.51); Basophil# 0.05 X10^3/uL; Basophil% 0.7 % (0-1); Eosinophils% 2.9 % (0-5); Hematocrit 40.8 % (37-47); Hemoglobin 13.4 g/dL (12.0-15.0); Lymphocyte # 2.05 X10^3/ul (0.83-4.51); Lymphocyte % 29.6 % (19-41); Mean Corp Hgb Conc 32.8 g/dL (32-36); Mean Corpuscular Hgb 29.4 pg (27.0-32.0); Mean Corpuscular Volume 89.5 fL (81-99); Mean Platelet Vol. 10.1 fl (6.2-12.0); Monocyte# 0.59 X10^3/uL; Monocyte% 8.5 % (0-10); NRBC Flagged by Analyzer 0 % (0-5); Neutrophil % 57.9 % (47-70); Platelet Count 270 K/mm3 (150-450); RBC Distribution Width CV 13.1 % (11.6-14.6); Red Blood Count 4.56 M/mm3 (4.2-5.4); White Blood Count 6.9 K/mm3 (4.4-11.0)
[2022-08-31 12:10] LABS: Thyroid Stim Hormone (TSH) 2.65 uIU/mL (0.358-3.74)
== END | disposition home or self-care (01) ==
LOC: LAB 11:07
PROVIDERS: PCP Internal Medicine; Referring Provider Nurse Practitioner Gerontology; Visit Provider Nurse Practitioner Gerontology
DX: R53.83 Other fatigue (principal)
CPT/HCPCS: 36415; 84443; 85025

== ENCOUNTER → 2022-09-12 | Outpatient (CLI) | payer MEDICARE, SELFPAY ==
[2020-01-03 08:21] VITALS: BMI 26.7
[2022-06-17 13:41] VITALS: BMI 26.7
--- NOTE | 2022-09-12 09:42 | ECHOCS_ITS ---
Version 2 Reason For Study: DYSPNEA/SOB Procedure This was a 2D Doppler, Color Flow transthoracic echocardiogram. The study was technically difficult. Exam performed in department. Left Ventricle Normal LV size. The estimated ejection fraction is 40 %. Moderate segmental systolic dysfunction (see wall motion). Stage 1 diastolic dysfunction. Septal [place] : Akinetic. [place] : Hypokinetic. Right Ventricle Normal RV size. Normal systolic function. Atria Normal left atrium. Normal right atrium. Mitral Valve There is mild to moderate mitral annular calcification. Mild (1+) eccentric mitral valve insufficiency. Tricuspid Valve Normal tricuspid valve. Mild (1+) tricuspid valve insufficiency. Pulmonary artery systolic pressure is 38 mmHg. Aortic Valve Trisinus/trileaflet aortic valve. Mild focal aortic valve calcification. Pulmonic Valve Normal pulmonic valve. Mild (1+) pulmonic valve insufficiency. Great Vessels Normal aortic root. The pulmonary artery is normal size. Normal inferior vena cava. Pericardium/Pleural No pericardial effusion. Medication 22 gauge I.V. with prn adaptor inserted into right arm. Diluted definity 3ml given slow IV push to enhance endocardial definition. MMode/2D Measurements & Calculations LVIDd: 5.1 cm IVSd: 0.89 cm Ao root diam: 3.0 cm LVIDs: 3.7 cm LVPWd: 0.91 cm RVDd: 3.5 cm FS: 27.3 % LAV(MOD-bp): 45.2 ml LVAd ap4: 34.6 cm2 SV(MOD-sp4): 64.7 ml LAV(MOD-bp) Indexed: 24.5 ml/m2 LVLd ap4: 8.0 cm LAV(MOD-sp2): 46.4 ml EDV(MOD-sp4): 119.8 ml LAV(MOD-sp4): 44.4 ml EDV(sp4-el): 126.7 ml LVAs ap4: 21.6 cm2 LVLs ap4: 6.8 cm ESV(MOD-sp4): 55.1 ml ESV(sp4-el): 58.2 ml EF(MOD-sp4): 54.0 % EF(sp4-el): 54.1 % SV(sp4-el): 68.5 ml LA A4 area: 16.4 cm2 LA dimension(2D): 3.5 cm RA A4 area: 15.0 cm2 Time Measurements MV dec time: 0.25 sec Doppler Measurements & Calculations MV E max escobar: 77.5 cm/sec Lat Peak E' Escobar: 5.9 cm/sec Med Peak E' Escobar: 4.7 cm/sec MV A max escobar: 105.0 cm/sec E/E' lat: 13.2 E/E' med: 16.4 MV E/A: 0.74 Ao V2 max: 193.4 cm/sec AI max escobar: 391.4 cm/sec LV V1 max: 88.8 cm/sec Ao max P.0 mmHg AI max P.3 mmHg LV V1 max P.2 mmHg Ao V2 mean: 136.7 cm/sec AI dec slope: 278.5 cm/sec2 Ao mean P.2 mmHg AI P1/2t: 411.6 msec Ao V2 VTI: 45.7 cm PA V2 max: 83.8 cm/sec TR max escobar: 290.4 cm/sec TR max P.7 mmHg ECHO/Echo Complete W/ Contrast Interpretation Summary Normal LV size. The estimated ejection fraction is 40 %. Moderate segmental systolic dysfunction (see wall motion). Stage 1 diastolic dysfunction. Mild (1+) eccentric mitral valve insufficiency. Contrast injection was performed. Compared to previous study, the left ventricu lar systolic function is the same.. Ordering Physician: Carisa Carty Referring Physician: YUKO BARRETT Performed By: Louisa Broussard RDCS
== END | disposition home or self-care (01) ==
LOC: CVS 09:41
PROVIDERS: PCP Internal Medicine; Visit Provider Nurse Practitioner Gerontology
DX: R06.00 Dyspnea, unspecified (principal); I25.5 Ischemic cardiomyopathy; R06.02 Shortness of breath
CPT/HCPCS: 93306; Q9957; A4216; C8929

== ENCOUNTER → 2022-10-21 | Outpatient (CLI) | payer MEDICARE, SELFPAY ==
[2022-06-17 13:41] VITALS: BMI 26.7
[2022-10-21 12:20] LABS: Anion Gap 7 (5-15); BUN 17 mg/dL (7-18); BUN/Creat Ratio 18.9 RATIO (10-20); Calcium,Total 9.1 mg/dL (8.5-10.1); Chloride 107 mmol/L (98-107); EST Glomerular Filtration Rate 65 mL/min (>60); Est Glom Filt Rate - Afr Amer 78 mL/min (>60); Glucose 105 mg/dL (74-106); Potassium 4.2 mmol/L (3.5-5.1); Sodium Level 142 mmol/L (136-145)
== END | disposition home or self-care (01) ==
LOC: BIMLAB 08:35
PROVIDERS: PCP Internal Medicine; Referring Provider Internal Medicine; Visit Provider Internal Medicine
DX: I10 Essential (primary) hypertension (principal)
CPT/HCPCS: 36415; 80048

== ENCOUNTER → 2022-11-21 | Outpatient (CLI) | payer MEDICARE, SELFPAY ==
[2022-06-17 13:41] VITALS: BMI 26.7
[2022-11-21 17:14] LABS: Anion Gap 6 (5-15); BUN 21 mg/dL (7-18); BUN/Creat Ratio 23.6 RATIO (10-20); Chloride 109 mmol/L (98-107); Creatinine, Serum 0.89 mg/dL (0.55-1.02); EST Glomerular Filtration Rate 65 mL/min (>60); Est Glom Filt Rate - Afr Amer 79 mL/min (>60); Glucose 86 mg/dL (74-106); Sodium Level 143 mmol/L (136-145)
== END | disposition home or self-care (01) ==
LOC: LAB 15:30
PROVIDERS: PCP Internal Medicine; Referring Provider Nurse Practitioner Gerontology; Visit Provider Nurse Practitioner Gerontology
DX: R82.998 Other abnormal findings in urine (principal); E86.0 Dehydration; R25.2 Cramp and spasm
CPT/HCPCS: 36415; 80048

== ENCOUNTER → 2022-12-05 | Outpatient (CLI) | payer MEDICARE, SELFPAY ==
[2022-06-17 13:41] VITALS: BMI 26.7
[2022-12-05 10:58] LABS: AST(SGOT) 13 U/L (15-37); Alanine Aminotransfer ALT/SGPT 19 U/L (13-56); Albumin, Serum 3.7 g/dL (3.2-5.0); Alkaline Phosphatase 89 U/L (45-117); Bilirubin, Direct 0.09 mg/dL (0.00-0.30); Cholesterol 187 mg/dL (200); Globulin 3.9 g/dL (2.2-4.2); High Density Lipoprotein 78 mg/dL; Protein, Total 7.6 g/dL (6.4-8.2); Triglycerides 117 mg/dL; Very Low Density Lipoprotein 23 mg/dL (5-40)
== END | disposition home or self-care (01) ==
LOC: LAB 09:08
PROVIDERS: PCP Internal Medicine; Referring Provider Nurse Practitioner Gerontology; Visit Provider Nurse Practitioner Gerontology
DX: E78.5 Hyperlipidemia, unspecified (principal)
CPT/HCPCS: 36415; 80061; 80076

== ENCOUNTER → 2023-02-06 | Outpatient (CLI) | payer MEDICARE, SELFPAY ==
[2022-06-17 13:41] VITALS: BMI 26.7
--- NOTE | 2023-02-06 11:36 | RAD_ITS ---
INDICATION: Right Groin Pain EXAMINATION/TECHNIQUE: X-RAY - XR Hip Unilateral with Pelvis when performed; 2-3 Views COMPARISON: None. FINDINGS: Moderate joint space narrowing right hip symmetric as compared to left. No evidence of fracture, subluxation or dislocation. RAD/Hip Min 2 Views (Portable) IMPRESSION: Mild right hip osteoarthritis. Electronically Signed: Gilbert Reyes MD, GLENN at 18:51 EDT ,
== END | disposition home or self-care (01) ==
LOC: RAD 11:34
PROVIDERS: PCP Internal Medicine; Referring Provider Internal Medicine; Visit Provider Internal Medicine
DX: R10.31 Right lower quadrant pain (principal)
CPT/HCPCS: 73502

== ENCOUNTER 2023-02-23 10:30 | Outpatient (RCR) | payer MEDICARE, SELFPAY ==
[2022-06-17 13:41] VITALS: BMI 26.7
--- NOTE | 2023-02-15 12:46 | HP.PTEVAL ---
Patient's Visit Information BENJAMÍN SILVERMAN is a 78 year old F referred to Physical Therapy by Dr. Julia Lofton MD with a diagnosis of R hip OA. Date of Evaluation: 02/15/23 Physical Therapist: TARA Rosales - Visit Plan Frequency: 2x /Week Duration: 6 Weeks Plan: 2X/ week for 6 weeks for R hip stretching piriformis , IT band, HS, strengthening of the R hip and some core with possible trial of US to decrease inflammation over the R greater trochanter with HEP. HEP: seated R piriformis stretch - Subjective She is having R hip and groin pain mostly at night. It does not happen all the time. She has had it a long time. 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 At night when she is laying down is when it starts. She sleeps on the R side of tosses and turns. She tries to sleep on the R side and she tosses and turns. Some nights it is worse than others. Stairs; She can do stairs with a little pain with 2 feet to a stair and uses a hand rail. She is going to Dr Duff today. She has no real back pain. It does not bother her to get out of a chair. No N&T. - Pain R hip pain Pain Intensity (Out of 10): 5 Pain Intensity Range: 8 - Objective Gait: Walks with slight decrease stance time on the R LE. Palpation: tender over the R greater trochanter and insertion of the piriformis. LE MMT: R hip flex 9.8 and L hip flex 10.9. R knee ext 24.3 and L 20.1. R knee flex 9.5 and L 10. R hip abd 7.1 and L 10.4. Tight HS, Hip flexor, and Piriformis... more tightness on the R than the L. Only slight IT band tightness on the R. R hip AROM: tight with increase pain with IR on the R... no pain on the L and has more ROM than the R. Pt is able to complete 3/4 normal ROM bridge. Pt really felt the Seated Piriformis stretching on the R compared to the L. - Balance/Special Test Scores Lower Extremity Functional Score: 52 - Goals Goal 1:: I HEP Goal Time Frame: 6-8 Weeks Goal 2:: Be able to sleep at night without having R hip pain Goal Time Frame: 6-8 Weeks Goal 3:: Increase R hip strength (strength at the time of the eval: R hip flex 9.8 and L hip flex 10.9. R knee ext 24.3 and L 20.1. R knee flex 9.5 and L 10. R hip abd 7.1 and L 10.4)/ Goal Time Frame: 6-8 Weeks Goal 4:: Be able to stretch R piriformis without pain and intense stretching compared to the L. Goal Time Frame: 6-8 Weeks - Rehabilitation Potential Rehabilitation Potential: Good - Anticipated Interventions Patient/Client Instruction: Educate patient on: Condition, Plan of Care For the Purpose of:: To decrease pain, To decrease swelling/inflammation, To increase ROM, To improve nutrient delivery to tissue, To increase oxygenation perfusion, To improve muscle performance and motor function, To improve ability to perform ADL's, To increase tolerance to activity/condition/position, To improve performance and independence with ADL's, To decrease level of supervision to perform tasks, To improve ability of physical actions for home/community/work/leisure, To improve gait and locomotor functions, To improve health of tissue, To decrease soft tissue restriction, To increase flexibility/ROM Therapeutic Exercise to Include: Strength training, Endurance training, Body mechanics, Flexibilty training, Gait and locomotor training, Neuromotor development, Passive ROM, Active ROM, Dynamic Lumbar Stabilization For the Purpose of:: To decrease pain, To increase ROM, To improve nutrient delivery to tissue, To increase oxygenation perfusion, To improve muscle performance and motor function, To improve ability to perform ADL's, To increase tolerance to activity/condition/position, To improve performance and independence with ADL's, To decrease level of supervision to perform tasks, To improve ability of physical actions for home/community/work/leisure, To improve health of tissue, To decrease soft tissue restriction, To increase flexibility/ROM, To improve endurance, To improve balance, To improve safety with gait Functional Training to Include: Gait training For the Purpose of:: To improve gait and locomotor functions Manual Therapy Techniques to Include: Passive ROM, Soft tissue mobilization For the Purpose of:: To decrease pain, To decrease swelling/inflammation, To increase ROM, To improve nutrient delivery to tissue, To improve muscle performance and motor function, To improve ability to perform ADL's Thermo therapy (hot pack): Yes Ultrasound (thermal/non thermal): Yes For the Purpose of:: To decrease pain, To decrease swelling/inflammation, To increase ROM, To increase oxygenation perfusion, To improve muscle performance and motor function, To improve ability to perform ADL's Thank you for the opportunity to evaluate your patient. For Medicare and Medicare HMO plans, please review the plan of care and approve it. It will need to be FAXED BACK to us at [phone] for Medicare purposes. For Medicare only, by signing this I certify the plan of care. Please let me know if there are questions or concerns regarding this plan of care. Physician Signature: Date:
--- NOTE | 2023-04-12 16:22 | HP.PTDCNRP_ITS ---
Patient Information Patient Information: BENJAMÍN SILVERMAN was seen in my office for initial evaluation on 02/15/23. The following Plan of Care was established for this patient: POC Established Initial Frequency: 2x /Week Initial Duration: 6 Weeks Anticipated Interventions Patient/Client Instruction: Educate patient on: Condition and Plan of Care For the Purpose of:: To decrease pain, To decrease swelling/inflammation, To increase ROM, To improve nutrient delivery to tissue, To increase oxygenation perfusion, To improve muscle performance and motor function, To improve ability to perform ADL's, To increase tolerance to activity/condition/position, To improve performance and independence with ADL's, To decrease level of supervision to perform tasks, To improve ability of physical actions for home/community/work/leisure, To improve gait and locomotor functions, To improve health of tissue, To decrease soft tissue restriction and To increase flexibility/ROM Therapeutic Exercise to Include: Strength training, Endurance training, Body mechanics, Flexibilty training, Gait and locomotor training, Neuromotor development, Passive ROM, Active ROM and Dynamic Lumbar Stabilization For the Purpose of:: To decrease pain, To increase ROM, To improve nutrient delivery to tissue, To increase oxygenation perfusion, To improve muscle performance and motor function, To improve ability to perform ADL's, To increase tolerance to activity/condition/position, To improve performance and independence with ADL's, To decrease level of supervision to perform tasks, To improve ability of physical actions for home/community/work/leisure, To improve health of tissue, To decrease soft tissue restriction, To increase flexibility/R OM, To improve endurance, To improve balance and To improve safety with gait Functional Training to Include: Gait training For the Purpose of:: To improve gait and locomotor functions Manual Therapy Techniques to Include: Passive ROM and Soft tissue mobilization For the Purpose of:: To decrease pain, To decrease swelling/inflammation, To increase ROM, To improve nutrient delivery to tissue, To improve muscle performance and motor function and To improve ability to perform ADL's Thermo therapy (hot pack): Yes Ultrasound (thermal/non thermal): Yes For the Purpose of:: To decrease pain, To decrease swelling/inflammation, To inc rease ROM, To increase oxygenation perfusion, To improve muscle performance and motor function and To improve ability to perform ADL's Last Seen Last Seen: This patient was last seen in our office 02/23/23. Pertinent comments regarding their Physical therapy will appear below: Pt did not reschedule after her last appointment and will be discharged. At this point I will be discontinuing this patient from physical therapy. I would be happy to see this patient again in the future if found appropriate by t elizabeth physician. Thank you! Jami Devlin, TARA Balance/Gait/Functional tests Balance/Special Test Scores Lower Extremity Functional Score: 52
== END 2023-02-23 19:00 | disposition home or self-care (01) ==
LOC: PT 10:30
PROVIDERS: PCP Internal Medicine; Referring Provider Internal Medicine; Visit Provider Internal Medicine
DX: M16.11 Unilateral primary osteoarthritis, right hip (principal)
CPT/HCPCS: 97110; 97161

== ENCOUNTER → 2023-04-03 | Outpatient (CLI) | payer MEDICARE, SELFPAY ==
[2022-06-17 13:41] VITALS: BMI 26.7
--- NOTE | 2023-04-03 09:41 | ECHOLC_ITS ---
Reason For Study: ISCH CMP Procedure This was a limited 2D transthoracic echocardiogram. The study was technically difficult. Contrast injection was performed. Exam performed in department. Left Ventricle Normal LV size. The left ventricular ejection fraction is 45 %. Mild to moderate segmental systolic dysfunction (see wall motion). [place] : Severely Hypokinetic. Inferior [place] : Akinetic. Right Ventricle Normal RV size. Normal systolic function. Atria Normal left atrium. Normal right atrium. Mitral Valve There is mild to moderate mitral annular calcification. Mild focal mitral valve calcification of the anterior leaflet. Tricuspid Valve Normal tricuspid valve. Unable to estimate RV systolic pressure due to inadequate jet, pulmonary artery pressure probably normal. Aortic Valve Normal aortic valve. Pulmonic Valve The pulmonic valve is not well visualized. Great Vessels Normal aortic root. Pericardium/Pleural No pericardial effusion. Medication 22 gauge I.V. with prn adaptor inserted into right arm. Diluted definity 2.5ml given slow IV push to enhance endocardial definition. MMode/2D Measurements & Calculations LAV(MOD-bp): 41.3 ml SV(MOD-sp4): 56.3 ml LVAd ap4: 36.0 cm2 LAV(MOD-bp) Indexed: 22.6 ml/m2 LVLd ap4: 8.4 cm LAV(MOD-sp2): 39.4 ml EDV(MOD-sp4): 127.4 ml LAV(MOD-sp4): 42.5 ml EDV(sp4-el): 130.9 ml LVAs ap4: 26.5 cm2 LVLs ap4: 8.0 cm ESV(MOD-sp4): 71.1 ml ESV(sp4-el): 75.0 ml EF(MOD-sp4): 44.2 % EF(sp4-el): 42.7 % SV(sp4-el): 55.9 ml LA A4 area: 15.6 cm2 RA A4 area: 14.5 cm2 ECHO/Echo Limited w/Contrast Interpretation Summary The left ventricular ejection fraction is 45 %. Mild to moderate segmental systolic dysfunction (see wall motion). Normal LV size. Compared to previous study, the left ventricular systolic function is the same. . Contrast injection was performed. Ordering Physician: Carisa Carty Referring Physician: Carisa Carty Performed By: Wendie Fraser RCS
== END | disposition home or self-care (01) ==
LOC: CVS 09:40
PROVIDERS: PCP Internal Medicine; Referring Provider Nurse Practitioner Gerontology; Visit Provider Nurse Practitioner Gerontology
DX: I25.5 Ischemic cardiomyopathy (principal)
CPT/HCPCS: 93308; Q9957; A4216; C8924

== ENCOUNTER → 2023-08-11 | Outpatient (CLI) | payer MEDICARE, SELFPAY ==
[2022-06-17 13:41] VITALS: BMI 26.7
[2023-08-11 15:40] LABS: Absolute Neutrophil Count 3.9 X10^3/uL (2.0-7.7); Basophil# 0.04 X10^3/uL; Basophil% 0.6 % (0-1); Eosinophil# 0.17 X10^3/uL; Eosinophils% 2.6 % (0-5); Hematocrit 41.4 % (37-47); Hemoglobin 12.9 g/dL (12.0-15.0); Mean Corp Hgb Conc 31.2 g/dL (32-36); Mean Corpuscular Hgb 28.7 pg (27.0-32.0); Mean Platelet Vol. 10.7 fl (6.2-12.0); Monocyte# 0.53 X10^3/uL; NRBC Flagged by Analyzer 0 % (0-5); Neutrophil # 3.89 X10^3/uL (2.7-7.7); Neutrophil % 58.3 % (47-70); Platelet Count 271 K/mm3 (150-450); RBC Distribution Width CV 12.8 % (11.6-14.6); White Blood Count 6.7 K/mm3 (4.4-11.0)
[2023-08-11 16:33] LABS: AST(SGOT) 11 U/L (15-37); Alanine Aminotransfer ALT/SGPT 23 U/L (13-56); Albumin, Serum 3.7 g/dL (3.2-5.0); Alkaline Phosphatase 93 U/L (45-117); Anion Gap 6 (5-15); BUN 16 mg/dL (7-18); BUN/Creat Ratio 20.4 RATIO (10-20); Bilirubin, Direct 0.09 mg/dL (0.00-0.30); Calcium,Total 9.3 mg/dL (8.5-10.1); Chloride 107 mmol/L (98-107); Cholesterol 174 mg/dL (200); Creatinine, Serum 0.78 mg/dL (0.55-1.02); EST Glomerular Filtration Rate 75 mL/min (>60); Est Glom Filt Rate - Afr Amer 91 mL/min (>60); Globulin 3.8 g/dL (2.2-4.2); Glucose 89 mg/dL (74-106); High Density Lipoprotein 81 mg/dL; Potassium 4.6 mmol/L (3.5-5.1); Protein, Total 7.5 g/dL (6.4-8.2); Sodium Level 141 mmol/L (136-145); Triglycerides 67 mg/dL; Very Low Density Lipoprotein 13 mg/dL (5-40)
== END | disposition home or self-care (01) ==
LOC: BIMLAB 11:53
PROVIDERS: PCP Internal Medicine; Referring Provider Internal Medicine; Visit Provider Internal Medicine
DX: E78.00 Pure hypercholesterolemia, unspecified (principal); I10 Essential (primary) hypertension; G47.33 Obstructive sleep apnea (adult) (pediatric)
CPT/HCPCS: 80053; 80061; 82248; 85025

== ENCOUNTER → 2023-12-01 | Outpatient (CLI) | payer MEDICARE, SELFPAY ==
[2022-06-17 13:41] VITALS: BMI 26.7
--- NOTE | 2023-12-01 13:52 | BI_ITS ---
MAMMOGRAPHY - BILATERAL SCREENING REASON FOR EXAM: Female, 78 years old. Routine annual screening examination. PERTINENT HISTORY: Sister with breast cancer. History of prior ultrasound and right cystic aspirations. TECHNIQUE: Digital bilateral breast papito (3D mammographic acquisition) in the CC and MLO projections. 2-D mediolateral oblique (MLO) and craniocaudad (CC) views of both breasts were obtained. CAD: Full Field Digital Mammography with Computer Added Detection was performed. COMPARISON: Comparison is made with prior mammogram dated November 11, 2019. FINDINGS: Breast Composition: The breasts are heterogeneously dense, which may obscure small masses. There is a 1.5 cm x 2.1 cm well-defined nodule in the deep central slightly lateral aspect of the right breast. This has decreased in size as compared to prior study. Adjacent to this, there is a 5.7 mm well-defined nodule. No other significant abnormalities are identified. BI/SCRN MAMM (CAD)W/PAPITO BILAT IMPRESSION: 1.5 cm x 2.1 cm well-defined nodule in the deep slightly lateral aspect of the right breast. Adjacent to this, there is a 5.7 mm well-defined nodule. Correlation with ultrasound is recommended for further evaluation. ASSESSMENT CATEGORY: BIRADS Category 0: Incomplete. Need additional imaging evaluation. A letter regarding these results will be sent to the patient by the facility within 30 days. Approximately 10% of breast cancers are not detected by mammography. A normal mammogram should not delay biopsy of a clinically suspicious abnormality. [id number] Electronically Signed: Hector Mckeon MD at 14:31 EST ,
== END | disposition home or self-care (01) ==
LOC: OPBI 13:51
PROVIDERS: PCP Internal Medicine; Referring Provider Internal Medicine; Visit Provider Internal Medicine
DX: Z12.31 Encounter for screening mammogram for malignant neoplasm of breast (principal); Z80.3 Family history of malignant neoplasm of breast
CPT/HCPCS: 77063; 77067

== ENCOUNTER → 2023-12-05 | Outpatient (CLI) | payer MEDICARE, SELFPAY ==
[2022-06-17 13:41] VITALS: BMI 26.7
--- NOTE | 2023-12-05 12:06 | US_ITS ---
STUDY: ULTRASOUND BREAST - RIGHT REASON FOR EXAM: Female, 78 years old. Abnormal mammogram. TECHNIQUE: Axial and longitudinal images of the RIGHT breast were performed with a high resolution ultrasound transducer. # OF IMAGES: 15 COMPARISON: Comparison is made with prior mammogram dated July 31, 2024. FINDINGS: RIGHT Breast: The lower outer quadrant of the right breast was examined with ultrasound. There is a 1.7 cm x 1.5 cm by 1.5 cm hypoechoic well-defined nodular density at the 8:00 position the breast at 3 cm from the nipple. Adjacent to this, there is a 1 cm x 1.4 cm x 0.9 cm well-defined hypoechoic nodule. These may represent fibroadenomas although tissue diagnosis recommended. There is also evidence of a 7 mm x 7 mm x 6 mm hypoechoic well-defined nodule at the 7:00 position breast at 3 cm from the nipple. US/Breast Limited Unilateral IMPRESSION: 2 adjacent well-defined hypoechoic solid nodules at the o''clock position breast at 3 cm from nipple. 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 Tissue diagnosis recommended. ASSESSMENT CATEGORY: BIRADS Category 4: Suspicious - Biopsy Should Be Considered. A letter regarding these results will be sent to the patient by the facility within 30 days. Electronically Signed: Hector Mckeon MD at 14:49 EST ,
== END | disposition home or self-care (01) ==
LOC: OPUS 12:05
PROVIDERS: PCP Internal Medicine; Referring Provider Internal Medicine; Visit Provider Internal Medicine
DX: N63.10 Unspecified lump in the right breast, unspecified quadrant (principal); R92.8 Other abnormal and inconclusive findings on diagnostic imaging of breast
CPT/HCPCS: 76642

== ENCOUNTER → 2024-01-29 | Outpatient (CLI) | payer MEDICARE, SELFPAY ==
[2022-06-17 13:41] VITALS: BMI 26.7
--- NOTE | 2024-01-29 11:34 | RAD_ITS ---
STUDY: X-RAY - CERVICAL SPINE REASON FOR EXAM: Female, 79 years old. Cervical radiculopathy TECHNIQUE: 3 view(s) of the cervical spine were obtained. COMPARISON: None FINDINGS: Normal anterior atlantoaxial articulation. Normal odontoid process. There is straightening of the normal cervical lordosis. There is diffuse demineralization of the cervical spine. Normal disc space heights. There is mild endplate spurring. There is facet spurring. The soft tissue structures are unremarkable. There is no demonstrated fracture of the cervical spine. RAD/Cerv Spine 2 or 3 Views IMPRESSION: Degenerative change. Electronically Signed: James Whitaker MD at 22:30 EDT ,
== END | disposition home or self-care (01) ==
LOC: RAD 11:26
PROVIDERS: PCP Internal Medicine; Referring Provider Internal Medicine; Visit Provider Internal Medicine
DX: M54.12 Radiculopathy, cervical region (principal)
CPT/HCPCS: 72040

== ENCOUNTER → 2024-02-06 | Outpatient (CLI) | payer MEDICARE, SELFPAY ==
[2022-06-17 13:41] VITALS: BMI 26.7
--- NOTE | 2024-02-06 13:59 | ST.MBS ---
Modified Barium Swallow Patient Information Study Date: 02/06/24 Study Time: 13:00 Direct Billable Minutes: 114 Total Minutes procedure & reportin Diagnosis: Dysphagia R13.10 Referring Physician: Julia Lofton Reason for Referral: Objectively assess swallow function, assess risk for aspiration, and determine recommendations for least restrictive diet textures and compensatory strategies to improve safety of swallow. Medical History: PMH: Cough, Cervical radiculopathy, Swallowing difficulty, Breast mass, COVID-19, CHF, Hoarseness, Former smoker, COPD, HLD, NSTEMI, HTN, Lung nodule (See EMR for full PMH) The patient reports swallowing difficulty for the past few years that has worsened in the past 3 months. She reports coughing with food and drink, but mostly food. She has had these coughing episodes ~2X/week. She denies history of choking. She feels she has had a harder time swallowing since getting dentures (2 years ago). She also reports wheezing at night. She has a history of GERD, which is managed with medication. Her PCP referred her for MBSS. Current Diet Ordered: Regular textures / Thin liquids Dentition: Upper Dentures and Partials Mental Status: WNL Respiratory Status: Oxygenating on Room Air Penetration-Aspiration Scale Penetration-Aspiration Scale: OBJECTIVE ASSESSMENT OF SWALLOW FUNCTION (QUANTITATIVE ? PER TRIAL): PENETRATION / ASPIRATION SCALE (HAYDEN): 1 = does not enter airway 2 = enters airway/above vocal folds/ejected 3 = enters airway/above vocal folds/not ejected 4 = enters airway/contacts vocal folds/ejected 5 = enters airway/contacts vocal folds/not ejected 6 = enters airway/below vocal folds/ejected 7 = enters airway/below vocal folds/not ejected despite effort 8 = enters airway/below vocal folds/no effort VIDEOFLOROSCOPIC SCALE SCORE (HAYDEN): Grade I = aspiration of material that has penetrated into the laryngeal vestibule, intact cough reflex Grade II = aspiration < 10 % of the bolus, intact cough reflex Grade III = aspiration of < 10 % of the bolus, reduced cough reflex or aspiration of > 10 % of the bolus, intact cough reflex Grade IV = aspiration of > 10 % of the bolus, reduced cough reflex Penetration-Aspiration Scale Score Thin Liquid via teaspoon: Result: 2= enter airway/above vocal folds/ejected Thin Liquid via teaspoon Trial 2: Result: 1= does not enter airway Thin Liquid via large single sip: cup: Result: 2= enter airway/above vocal folds/ejected [place] Thick Liquid via small single sip: cup: Result: 1= does not enter airway Pudding via teaspoon: Result: 1= does not enter airway Comment: Esophageal screen - Complete clearance. 1/2 Cookie: Result: 1= does not enter airway Comment: Esophageal screen - Complete clearance. Thin Liquid via sequential sips:straw: Result: 2= enter airway/above vocal folds/ejected Comment: Esophageal screen - Retention of thin liquids in the mid and lower esophagus with retrograde flow remaining well below the UES. Oral Phase Labial Seal: Escape progressing to mid-chin (due to ENVIRONMENTAL FIELD SERVICES TECHNICIAN feeding the patient the first two sips via tsp) Tongue Control During Bolus Hold: Posterior escape of greater than half of bolus Bolus Preparation/Mastication: Slow prolonged chewing/mashing with complete recollection Bolus Transport/Lingual Motion: Brisk tongue motion Oral Residue: Residue collection on oral structures Pharyngeal Phase Initiation of Pharyngeal Swallow: Bolus head in pyriforms Soft Palate Elevation: No bolus between soft palate and pharyngeal wall Laryngeal Elevation: Comp. Superior move thyroid cart w/comp. apprx arytenoid cart-epig pet Anterior Hyoid Excursion: Partial anterior movement Epiglottic Movement: Partial inversion Laryngeal Vestibule Closure at Height of Swallow: Incomplete; narrow column of air/contrast in laryngeal vestibule Pharyngeal Stripping Wave: Present - diminished Pharyngoesophageal Segment Opening: Complete distension and complete duration; no obstruction of flow Tongue Base Retraction: Wide column of contrast between tongue base & post. pharyngeal wall Pharyngeal Residue: Collection of residue within or on pharyngeal structures Esophageal Phase Esophageal Clearance: Esophageal retention w/ retrograde flow below pharyngoesophageal seg. Diagnosis/Impression Diagnosis: Mild pharyngeal dysphagia R13.13 Impression: The oral phase is primarily marked by... -Decreased bolus control with >1/2 of the bolus spilling posteriorly to the pyriforms prior to swallow onset observed with sequential sips of thin liquids. -Mild oral residue after the swallow with large sips and piecemeal deglutition of pudding trial, which cleared with independent initiation of a second swallow. ? The pharyngeal phase is primarily marked by... -Decreased airway closure during the swallow due to decreased anterior hyoid excursion, partial epiglottic inversion, and decreased laryngeal elevation. -Mildly decreased tongue base retraction and decreased pharyngeal stripping wave resulting in mild pharyngeal residues after the swallow most notable with sequential sips of thin liquids. -Laryngeal penetration with certain trials of thin liquids that all ejected from the laryngeal vestibule after the swallow. No aspiration observed during the study. ? The esophageal phase is primarily marked by... -Esophageal retention of thin liquids in the mid and lower esophagus with retrograde flow remaining well below the UES. Recommendations Diet: Regular Textures and Thin Liquids Compensatory Strategies: Small Bites, Small Sips, Slow Rate, Alternate bites/solids and sips/liquids, Sitting upright and Remain sitting upright for 30 minutes after PO intake Recommend Repeat Modified Barium Swallow: TBD Need for Skilled Speech Therapy Services: Yes Comment: -Train the patient in use of strategies to decrease risk for aspiration and reflux aspiration. -Ongoing assessment of diet tolerance of recommended textures. -Train the patient in oropharyngeal exercise program to improve swallow onset, pharyngeal motility, and airway closure (Devendra, effortful breath hold and swallow, CTAR). Recommended Referrals: GI Consult (If continued concerns for swallowing difficulty despite use of strategies, will recommend GI consult due to retention and retrograde flow of liquids observed during the study.) Education Completed: 1. Described result of evaluation. Status Active ST Patient: Active Contact Information [facility] Speech Therapy:: [facility]-ENVIRONMENTAL FIELD SERVICES TECHNICIAN? Speech-Language Pathologist?? [facility] [address] [place] [address]?? [email or web address] [phone]
== END | disposition home or self-care (01) ==
LOC: RAD 12:27
PROVIDERS: PCP Internal Medicine; Referring Provider Internal Medicine; Visit Provider Internal Medicine
DX: R13.10 Dysphagia, unspecified (principal); R49.0 Dysphonia
CPT/HCPCS: 74230; 92611

== ENCOUNTER → 2024-02-29 | Outpatient (CLI) | payer MEDICARE, SELFPAY ==
[2022-06-17 13:41] VITALS: BMI 26.7
[2024-02-29 12:24] LABS: Mucous, Urine 0 SEEN /hpf (<or=2+); Red Blood Cells-Urine 0 SEEN /hpf (0-5)
[2024-02-29 15:02] LABS: Absolute Lymphocyte Count 1.56 X10^3/uL (0.83-4.51); Absolute Neutrophil Count 3.9 X10^3/uL (2.0-7.7); Basophil# 0.02 X10^3/uL; Basophil% 0.3 % (0-1); Eosinophil# 0.13 X10^3/uL; Eosinophils% 2.1 % (0-5); Hemoglobin 12.3 g/dL (12.0-15.0); Lymphocyte # 1.56 X10^3/ul (0.83-4.51); Lymphocyte % 25.3 % (19-41); Mean Corp Hgb Conc 32.4 g/dL (32-36); Mean Corpuscular Hgb 29.5 pg (27.0-32.0); Mean Corpuscular Volume 91.1 fL (81-99); Monocyte# 0.51 X10^3/uL; Monocyte% 8.3 % (0-10); NRBC Flagged by Analyzer 0 % (0-5); Neutrophil # 3.92 X10^3/uL (2.7-7.7); Neutrophil % 63.7 % (47-70); Platelet Count 216 K/mm3 (150-450); RBC Distribution Width SD 43.2 fl (35.1-43.9); Red Blood Count 4.17 M/mm3 (4.2-5.4); White Blood Count 6.2 K/mm3 (4.4-11.0)
[2024-02-29 15:24] LABS: ALB/GLOB Ratio 1.1 RATIO (0.9-2.4); AST(SGOT) 13 U/L (15-37); Alanine Aminotransfer ALT/SGPT 20 U/L (13-56); Albumin, Serum 3.6 g/dL (3.2-5.0); Alkaline Phosphatase 96 U/L (45-117); Anion Gap 4 (5-15); BUN 14 mg/dL (7-18); BUN/Creat Ratio 13.5 RATIO (10-20); Calcium,Total 9.1 mg/dL (8.5-10.1); Chloride 109 mmol/L (98-107); Creatinine, Serum 1.04 mg/dL (0.55-1.02); EST Glomerular Filtration Rate 54 mL/min (>60); Est Glom Filt Rate - Afr Amer 66 mL/min (>60); Globulin 3.4 g/dL (2.2-4.2); Glucose 87 mg/dL (74-106); Lipase 56 U/L (13-75); Potassium 4.4 mmol/L (3.5-5.1); Sodium Level 141 mmol/L (136-145)
[2024-02-29 16:11] LABS: Color, Urine Yellow (Yellow); Glucose, Dipstick Normal (Normal); Ketone-Dipstick Negative (Negative); Leukocyte Esterase-Dipstick 500 /ul (Negative); Nitrite-Dipstick Positive (Negative); Occult Blood-Urine 10 /ul (Negative); Protein-Dipstick 15 mg/dl (Negative); Urine Bilirubin Dipstick Negative (Negative); Urine Clarity Sl. Cloudy (Clear); Urine Urobilinogen Normal (Normal)
[2024-02-29 16:48] LABS: Bacteria 1+ /hpf (None Seen); Squamous Epithelial Cells - UA 0-5 SEEN /hpf (5-10); White Blood Cells 50-100 SEEN /hpf (0-5)
== END | disposition home or self-care (01) ==
LOC: BIMLAB 11:57
PROVIDERS: PCP Internal Medicine; Visit Provider Nurse Practitioner
DX: R10.9 Unspecified abdominal pain (principal)
CPT/HCPCS: 36415; 80053; 81001; 83690; 85025; 87077; 87086; 87088; 87186

== ENCOUNTER 2024-03-01 16:51 | Emergency (ER) | payer MEDICARE, SELFPAY ==
[2022-06-17 13:41] VITALS: BMI 26.7
[2024-03-01 16:52] VITALS: BP 137/79; PULSE 64; RESP 16; TEMP 36.3; O2SAT 97; BMI 26.2
--- NOTE | 2024-03-01 17:20 | CT_ITS ---
INDICATION: abdominal pain EXAMINATION: CT ABDOMEN AND PELVIS WITH CONTRAST - CT Abdomen And Pelvis W/ Contrast Injection TECHNIQUE: Helically acquired images were obtained of the abdomen and pelvis following IV contrast. A radiation dose optimization technique was used for this scan. IV Contrast dosage and agent: Oral contrast: None. COMPARISON: None. FINDINGS: LOWER CHEST: Lung bases are clear. No cardiomegaly or pericardial effusion. LIVER: Homogeneous liver with mild hepatomegaly.. No focal mass. GALLBLADDER AND BILIARY TREE: Cholecystectomy. Mild expected postsurgical intrahepatic and extrahepatic biliary dilatation. . PANCREAS: No focal cystic or solid mass. SPLEEN: Normal size without focal cystic or solid mass. ADRENAL GLANDS: No nodules. KIDNEYS AND URETERS: Normal renal size and position. No hydronephrosis. PERITONEUM: No ascites or free air. No other fluid collection. BOWEL: No acute gastric finding. Large duodenal diverticulum at the pancreatic head. No small bowel distention or focal wall thickening. Distal colonic diverticulosis without evidence of diverticulitis. LYMPH NODES: No enlarged mesenteric or retroperitoneal lymph nodes. VESSELS: Aortic atherosclerosis without dissection or ectasia.. URINARY BLADDER: Trace on the bladder without wall thickening or surrounding inflammation.. REPRODUCTIVE ORGANS: Absent uterus. No evidence of adnexal mass.. ABDOMINAL WALL: No discrete abdominal or pelvic wall hernia. BONES: No lytic or blastic abnormality. CT/Abdomen/Pelvis W IV Cont ONLY IMPRESSION: Trace nondependent air in the bladder which is commonly secondary to recent catheterization. Air can also be secondary to cystitis. Correlate with exam. Colonic diverticulosis without evidence of diverticulitis. Large duodenal diverticulum without surrounding inflammation. Hepatomegaly. Electronically Signed: Santhosh Grant MD at 18:56 EDT ,
[2024-03-01 17:27] LABS: Absolute Lymphocyte Count 2.45 X10^3/uL (0.83-4.51); Absolute Neutrophil Count 4.8 X10^3/uL (2.0-7.7); Basophil# 0.04 X10^3/uL; Basophil% 0.5 % (0-1); Eosinophil# 0.17 X10^3/uL; Eosinophils% 2.1 % (0-5); Hematocrit 37.5 % (37-47); Hemoglobin 12.1 g/dL (12.0-15.0); Lymphocyte # 2.45 X10^3/ul (0.83-4.51); Lymphocyte % 30.4 % (19-41); Mean Corp Hgb Conc 32.3 g/dL (32-36); Mean Corpuscular Hgb 28.7 pg (27.0-32.0); Mean Corpuscular Volume 89.1 fL (81-99); Mean Platelet Vol. 10.4 fl (6.2-12.0); Monocyte# 0.57 X10^3/uL; Monocyte% 7.1 % (0-10); NRBC Flagged by Analyzer 0 % (0-5); Neutrophil % 59.5 % (47-70); Platelet Count 207 K/mm3 (150-450); RBC Distribution Width SD 42.1 fl (35.1-43.9); Red Blood Count 4.21 M/mm3 (4.2-5.4); White Blood Count 8.1 K/mm3 (4.4-11.0)
[2024-03-01 17:36] LABS: ALB/GLOB Ratio 1.1 RATIO (0.9-2.4); AST(SGOT) 14 U/L (15-37); Alanine Aminotransfer ALT/SGPT 19 U/L (13-56); Albumin, Serum 3.6 g/dL (3.2-5.0); Alkaline Phosphatase 97 U/L (45-117); Anion Gap 4 (5-15); BUN 14 mg/dL (7-18); BUN/Creat Ratio 16.5 RATIO (10-20); Chloride 109 mmol/L (98-107); Creatinine, Serum 0.85 mg/dL (0.55-1.02); EST Glomerular Filtration Rate 69 mL/min (>60); Est Glom Filt Rate - Afr Amer 83 mL/min (>60); Estimated Creatinine Clearance 55.08 ml/min; Globulin 3.3 g/dL (2.2-4.2); Glucose 86 mg/dL (74-106); Lipase 58 U/L (13-75); Potassium 3.9 mmol/L (3.5-5.1); Protein, Total 6.9 g/dL (6.4-8.2); Sodium Level 141 mmol/L (136-145)
[2024-03-01] MEDS: Morphine 4 MG/ML Syringe IV (18:07)
[2024-03-01] MEDS: Ondansetron 4 MG/2 ML Vial IV (18:07)
[2024-03-01 18:08] VITALS: BP 143/80; PULSE 65; RESP 16; O2SAT 99
[2024-03-01 18:08] LABS: Mucous, Urine 0 SEEN /hpf (<or=2+)
[2024-03-01 18:13] LABS: Color, Urine Yellow (Yellow); Glucose, Dipstick Normal (Normal); Ketone-Dipstick Negative (Negative); Leukocyte Esterase-Dipstick 500 /ul (Negative); Nitrite-Dipstick Positive (Negative); Occult Blood-Urine 10 /ul (Negative); Protein-Dipstick 15 mg/dl (Negative); Specific Gravity, Urine 1.015 (1.002-1.030); Urine Bilirubin Dipstick Negative (Negative); Urine Clarity Cloudy (Clear); Urine Urobilinogen Normal (Normal)
[2024-03-01 18:22] LABS: Bacteria 3+ /hpf (None Seen); Red Blood Cells-Urine 0-5 SEEN /hpf (0-5); Squamous Epithelial Cells - UA 0-5 SEEN /hpf (5-10); White Blood Cells 50-100 SEEN /hpf (0-5)
[2024-03-01 19:21] VITALS: BP 136/59; PULSE 75; RESP 16; TEMP 36.8; O2SAT 96
[2024-03-01] MEDS: Ciprofloxacin 500 MG Tablet PO (19:24)
--- NOTE | 2024-03-01 19:49 | EDS_ITS ---
HPI HPI - GI History of Present Illness Chief Complaint: Abd Pain Narrative Narrative: 79-year-old female presenting right-sided abdominal pain which she has had for about a week. She was already seen by her primary care physician and had lab work. She states this was normal. She states they were concerned about a UTI who put her on Keflex yesterday however she never picked it up and did not take it. She still has the prescription in her purse. Fussy. She states the pain is continued. No constipation or diarrhea. He does not specifically have any urinary symptoms. [facility] Medical History Cough Cervical radiculopathy Swallowing difficulty Abnormal mammogram of right breast Breast mass, right Insomnia Right ear pain Contact with and (suspected) exposure to other viral communicable diseases CVA (cerebral vascular accident) Osteoarthritis of right hip Recurrent UTI Congestive heart failure (CHF) Right groin pain Dry mouth Leg cramps Dehydration Dark urine Abdominal pain Right foot pain Flu vaccine need Hoarseness Left shoulder pain Left cervical radiculopathy UTI (urinary tract infection) Abnormal urinalysis Right flank pain Post-menopausal Wears dentures Wears glasses Arthritis High cholesterol TIA (transient ischemic attack) Former smoker Sleep apnea Shortness of breath on exertion Chronic cough History of echocardiogram History of stress test Hypertension Cardiology follow-up encounter History of heart attack Colon cancer screening Arthritis Cataracts, bilateral Osteoporosis Ischemic cardiomyopathy Essential hypertension History of non-ST elevation myocardial infarction (NSTEMI) (01/02/20) Hyperlipidemia COPD (chronic obstructive pulmonary disease) Retinal artery thrombosis, 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) Atherosclerosis of coronary artery of [place] heart without angina pectoris Dyspnea Lung nodule Periodic limb movement DEEPAK (obstructive sleep apnea) Home Medications ?Medication ?Instructions ?Recorded ?Last Taken ?Type aspirin 81 mg chewable tablet 81 mg PO DAILY@0800 preventative 01/02/20 02/20/22 History furosemide 40 mg tablet 40 mg PO QWEEK Dieutic 06/17/22 Unknown History cholecalciferol (vitamin D3) 1,250 1,250 mcg PO QWEEK #14 caps 02/17/23 Unknown Rx mcg (50,000 unit) capsule nitroglycerin 0.4 mg sublingual 0.4 mg sublingual Q5-15M PRN chest 04/20/23 Unknown Rx tablet pain #25 tabs amlodipine 5 mg tablet See Rx Instructions .Route 05/19/23 Unknown Rx .COMPLEX #90 tabs atorvastatin 40 mg tablet 40 mg PO QHS Cholesterol #90 tabs 07/18/23 Unknown Rx trazodone 50 mg tablet 50 mg PO QHS PRN insomnia #30 tabs 08/11/23 Unknown Rx metoprolol succinate 50 mg 50 mg PO DAILY #90 TABLETS 01/05/24 Unknown Rx tablet,extended release 24 hr clopidogrel 75 mg tablet 75 mg PO DAILY Heart #90 tabs 01/22/24 Unknown Rx lansoprazole 30 mg capsule,delayed 30 mg PO DAILY #60 caps 01/29/24 Unknown Rx release cephalexin 500 mg capsule 500 mg PO Q12H 7 days #14 caps 02/29/24 Unknown Rx Lactobacillus acidophilus 500 500,000,000 cell PO 03/01/24 Unknown History million cell capsule ciprofloxacin HCl 500 mg tablet 500 mg PO BID #20 tabs 03/01/24 Unknown Rx (Cipro) Allergy/AdvReac Type Severity Reaction Status Date / Time lisinopril Allergy Cough Verified 03/01/24 16:53 losartan Allergy Cough Verified 03/01/24 16:53 Sulfa (Sulfonamide AdvReac Rash Verified 03/01/24 16:53 Antibiotics) Family History Father Heart disease Hypertension Sister Heart disease Breast cancer Diabetes Hypertension Sepsis due to urinary tract infection Brother Heart disease Alzheimer's dementia Diabetes Hypertension Mother Cancer Bladder Heart disease Hypertension Surgical History History of cardiac catheterization History of reconstructive repair of rectocele History of coronary artery stent placement History of lymph node excision History of hysterectomy History of cholecystectomy Social History Smoking Status: Former smoker Tobacco: How many years used: 34 how long ago did patient quit smokin second hand exposure: No alcohol intake: current alcohol intake frequency: holidays/special occasions only substance use type: does not use caffeine: Yes Type: coffee Number of servings: 3 what type of physical activity do you participate in: walking ROS ROS ED Constitutional Constitutional ED: Denies chills, fever(s) or sweats Eyes Eyes: Denies blurry vision or change in vision ENT ENT ED: Denies ear pain or sore throat Cardiovascular Cardiovascular: Denies chest pain, palpitations or racing heartbeat Respiratory/Chest Respiratory/Chest: Denies cough, dyspnea or sputum Gastrointestinal Gastrointestinal: Reports abdominal pain; Denies constipation, diarrhea, nausea or vomiting Genitourinary Genitourinary ED: Denies dysuria, hematuria or urinary frequency Musculoskeletal Musculoskeletal: Denies arthralgias, myalgias or neck pain Integumentary Denies abscess, Abrasions or rash Neurologic Neurologic: Denies headache(s), paresthesias or weakness Psychiatric Psychiatric: Denies anxiety, depression, suicidal ideation or suicidal thoughts Endocrine Endocrinology: Denies polydipsia or polyuria EXAM Physical Exam Const Vital Signs: 03/01/24 16:52 03/01/24 18:08 03/01/24 19:21 Temperature 97.4 F L 98.2 F Temperature Source Temporal Pulse Rate 64 65 75 Respiratory Rate 16 16 16 Blood Pressure 137/79 H 143/80 H 136/59 H Blood Pressure Mean 98 101 84 Pulse Ox 97 99 96 Oxygen Delivery Method Room Air Room Air Positive well nourished General Appearance ED: NAD HEENT Reports moist mucous membranes normocephalic Eyes PERRL Resp normal respiratory effort Auscultation: Negative for rales or rhonchi Cardio regular rate and regular rhythm GI Palpation: tender RLQ Back/Spine General Back: CVA tenderness right Neuro CN's II-XII intact bilaterally Motor Exam: strength 5/5 throughout Psych mental status grossly normal Skin no wounds MDM MDM MDM Narrative Medical decision making narrative: Patient presenting with right-sided lower abdominal pain. She is already being treated for UTI however she has not taken antibiotics. Differential includes UTI, pyelonephritis, colitis, diverticulitis, pancreatitis. CBC shows white blood cell count 8.1. Hemoglobin 12.1. Platelets are normal at 207. Renal function electrolytes within normal limits. LFTs and lipase are normal. Urinalysis consistent with infection. Given her exam with some CVA tenderness I told she probably has pyelonephritis. She was put on Cipro for this. Return precautions were discussed. Impression: 1. Pyelonephritis Lab Data Attestation: I reviewed the patient's lab results. Labs: Laboratory Results - last 24 hr 03/01/24 03/01/24 17:10 17:55 WBC 8.1 RBC 4.21 Hgb 12.1 Hct 37.5 MCV 89.1 MCH 28.7 MCHC 32.3 RDW Std Deviation 42.1 RDW Coeff of Vlad 13.0 Plt Count 207 MPV 10.4 Immature Gran % (Auto) 0.400 Neut % (Auto) 59.5 Lymph % (Auto) 30.4 [place] % (Auto) 7.1 Eos % (Auto) 2.1 Baso % (Auto) 0.5 Absolute Neuts (auto) 4.8 Absolute Lymphs (auto) 2.45 Nucleated RBC % 0 Sodium 141 Potassium 3.9 Chloride 109 H Carbon Dioxide 28.0 Anion Gap 4 L BUN 14 Creatinine 0.85 Estim Creat Clear Calc 55.08 Est GFR (MDRD) Af Amer 83 Est GFR (MDRD) Non-Af 69 BUN/Creatinine Ratio 16.5 Glucose 86 Calcium 9.0 Total Bilirubin 0.20 AST 14 L ALT 19 Alkaline Phosphatase 97 Total Protein 6.9 Albumin 3.6 Globulin 3.3 Albumin/Globulin Ratio 1.1 Lipase 58 Urine Color Yellow Urine Clarity Cloudy Urine pH 5.0 Ur Specific [place] 1.015 Urine Protein 15 H Urine Glucose (UA) Normal Urine Ketones Negative Urine Occult Blood 10 H Urine Nitrite Positive H Urine Bilirubin Negative Urine Urobilinogen Normal Ur Leukocyte Esterase 500 H Urine RBC 0-5 SEEN Urine WBC 50-100 SEEN Ur Squamous Epith Cells 0-5 SEEN Urine Bacteria 3+ Urine Mucus 0 SEEN Radiography Diagnostic Testing: Clinical Impression(s) from Imaging Studies Abdomen/Pelvis CT 03/01/24 17:20 IMPRESSION: Trace nondependent air in the bladder which is commonly secondary to recent catheterization. Air can also be secondary to cystitis. Correlate with exam. Colonic diverticulosis without evidence of diverticulitis. Large duodenal diverticulum without surrounding inflammation. Hepatomegaly. Electronically Signed: Santhosh Grant MD at 18:56 EDT , Discharge Plan Triage Chief Complaint: Abd Pain ED Provider: Aleks Avelar Dx/Rx/DC Orders Clinical Impression: Pyelonephritis Instructions: ED Pyelonephritis, Female (Adult) Prescriptions: New ciprofloxacin HCl [Cipro] 500 mg tablet 500 mg PO BID Qty: 20 0RF No Action furosemide 40 mg tablet 40 mg PO QWEEK Rx Instructions: 2 tabs a week nitroglycerin 0.4 mg tablet, sublingual 0.4 mg SUBLINGUAL Q5-15M PRN (Reason: chest pain) Qty: 25 3RF Rx Instructions: do not exceed 3 doses per episode trazodone 50 mg tablet 50 mg PO QHS PRN (Reason: insomnia) Qty: 30 1RF lansoprazole 30 mg capsule,delayed release(DR/EC) 30 mg PO DAILY Qty: 60 2RF cephalexin 500 mg capsule 500 mg PO Q12H 7 Days Qty: 14 0RF aspirin 81 MG tablet,chewable 81 mg PO DAILY@0800 Lactobacillus acidophilus 500 million cell capsule 500,000,000 cell PO cholecalciferol (vitamin D3) 1,250 mcg (50,000 unit) capsule 1,250 mcg PO QWEEK Qty: 14 3RF amlodipine 5 mg tablet See Rx Instructions .ROUTE .COMPLEX Qty: 90 3RF Dose Instruction: Take 1 tablet by mouth once daily Rx Instructions: Take 1 tablet by mouth once daily atorvastatin 40 mg tablet 40 mg PO QHS Qty: 90 3RF metoprolol succinate 50 mg tablet extended release 24 hr 50 mg PO DAILY Qty: 90 3RF clopidogrel 75 mg tablet 75 mg PO DAILY Qty: 90 3RF Primary Care Provider: Julia Lofton Referrals: Julia Lofton MD [Primary Care Provider] - Print Language: Malay Disposition Disposition: Home, Self Care Discharge Date/Time: 03/01/24 19:47
== END 2024-03-01 19:47 | disposition home or self-care (01) ==
PROVIDERS: Emergency Provider Student in an Organized Health Care Education/Training Program; PCP Internal Medicine; Visit Provider Student in an Organized Health Care Education/Training Program
DX: N12 Tubulo-interstitial nephritis, not specified as acute or chronic (principal); J44.9 Chronic obstructive pulmonary disease, unspecified; Z87.891 Personal history of nicotine dependence; Z86.73 Personal history of transient ischemic attack (TIA), and cerebral infarction without residual deficits; I10 Essential (primary) hypertension; I25.2 Old myocardial infarction; I25.10 Atherosclerotic heart disease of native coronary artery without angina pectoris; Z79.82 Long term (current) use of aspirin; Z79.899 Other long term (current) drug therapy; Z79.02 Long term (current) use of antithrombotics/antiplatelets; E78.00 Pure hypercholesterolemia, unspecified; Z95.5 Presence of coronary angioplasty implant and graft; Z90.710 Acquired absence of both cervix and uterus; Z90.49 Acquired absence of other specified parts of digestive tract
CPT/HCPCS: 74177; 80053; 81001; 83690; 85025; 96374; 96375; 99284; Q9967; A4216; J2405

== ENCOUNTER → 2024-04-11 | Outpatient (CLI) | payer MEDICARE, SELFPAY ==
[2022-06-17 13:41] VITALS: BMI 26.7
--- NOTE | 2024-04-11 10:35 | RAD_ITS ---
STUDY: X-RAY CHEST REASON FOR EXAM: Female, 79 years old. Cough. Dyspnea on exertion. TECHNIQUE: Frontal and lateral views of the chest. COMPARISON: June 19, 2022 FINDINGS: Stable mild hyperinflation. There is no demonstrated pleural abnormality. Borderline cardiomegaly unchanged. Normal mediastinum and slava. Normal visualized pulmonary arteries. Aortic tortuosity with calcification unchanged. Thoracic osteopenia with diffuse mild thoracic spondylosis unchanged. Normal visualized ribs, clavicles, and shoulders. No abnormality of the visualized soft tissue structures of the upper abdomen. RAD/Chest PA and Lateral IMPRESSION: Stable borderline cardiomegaly with hyperinflation and no acute or active cardiopulmonary disease. Electronically Signed: Daljit Gibson MD at 9:21 EDT ,
[2024-04-11 11:00] LABS: Absolute Lymphocyte Count 1.11 X10^3/uL (0.83-4.51); Absolute Neutrophil Count 6.5 X10^3/uL (2.0-7.7); Basophil# 0.03 X10^3/uL; Basophil% 0.4 % (0-1); Eosinophil# 0.11 X10^3/uL; Eosinophils% 1.3 % (0-5); Hematocrit 39.6 % (37-47); Hemoglobin 12.9 g/dL (12.0-15.0); Lymphocyte # 1.11 X10^3/ul (0.83-4.51); Lymphocyte % 13.1 % (19-41); Mean Corp Hgb Conc 32.6 g/dL (32-36); Mean Corpuscular Hgb 29.1 pg (27.0-32.0); Mean Corpuscular Volume 89.2 fL (81-99); Mean Platelet Vol. 9.9 fl (6.2-12.0); Monocyte# 0.72 X10^3/uL; Monocyte% 8.5 % (0-10); NRBC Flagged by Analyzer 0 % (0-5); Neutrophil # 6.45 X10^3/uL (2.7-7.7); Neutrophil % 76.2 % (47-70); Platelet Count 257 K/mm3 (150-450); RBC Distribution Width CV 12.9 % (11.6-14.6); Red Blood Count 4.44 M/mm3 (4.2-5.4); White Blood Count 8.5 K/mm3 (4.4-11.0)
[2024-04-11 11:32] LABS: BNP,B-Type NATRIURETIC PEPTIDE 110.9 pg/mL (0-100)
[2024-04-11 11:41] LABS: Anion Gap 5 (5-15); BUN 13 mg/dL (7-18); BUN/Creat Ratio 15.4 RATIO (10-20); Calcium,Total 9.3 mg/dL (8.5-10.1); Chloride 107 mmol/L (98-107); Creatinine, Serum 0.85 mg/dL (0.55-1.02); EST Glomerular Filtration Rate 69 mL/min (>60); Est Glom Filt Rate - Afr Amer 83 mL/min (>60); Glucose 84 mg/dL (74-106); Potassium 4.1 mmol/L (3.5-5.1); Sodium Level 140 mmol/L (136-145); Thyroid Stim Hormone (TSH) 1.44 uIU/mL (0.358-3.74)
== END | disposition home or self-care (01) ==
LOC: RAD 10:23
PROVIDERS: PCP Internal Medicine; Referring Provider Nurse Practitioner Gerontology; Visit Provider Nurse Practitioner Gerontology
DX: R06.09 Other forms of dyspnea (principal)
CPT/HCPCS: 36415; 71046; 80048; 83880; 84443; 85025

== ENCOUNTER → 2024-05-01 | Outpatient (CLI) | payer MEDICARE, SELFPAY ==
[2022-06-17 13:41] VITALS: BMI 26.7
--- NOTE | 2024-05-01 06:20 | ECHOCS_ITS ---
Reason For Study: DYSPNEA Procedure This was a 2D Doppler, Color Flow transthoracic echocardiogram. The study was technically difficult. Contrast injection was performed. Exam performed in department. Left Ventricle Normal LV size. The left ventricular ejection fraction is 45 %. Mild to moderate segmental systolic dysfunction (see wall motion). [place] : Akinetic. Mid-Lateral : Hypokinetic. Mid-anteroseptal : Akinetic. The rest of the wall segments are normal. Right Ventricle Normal RV size. Normal systolic function. Atria Normal left atrium. Normal right atrium. Mitral Valve Mild focal mitral valve calcification. Tricuspid Valve Normal tricuspid valve. Mild (1+) tricuspid valve insufficiency. Pulmonary artery systolic pressure is 38 mmHg. Aortic Valve Trisinus/trileaflet aortic valve. Mild focal aortic valve calcification. Peak aortic valve gradient 21 mmHg. Mean aortic valve gradient 14 mmHg. Trivial aortic valve insufficiency. Pulmonic Valve Normal pulmonic valve. Great Vessels Normal aortic root. The pulmonary artery is normal size. Normal inferior vena cava. Pericardium/Pleural No pericardial effusion. Medication 22 gauge I.V. with prn adaptor inserted into right arm. Diluted definity 2ml given slow IV push to enhance endocardial definition. MMode/2D Measurements & Calculations LVIDd: 4.2 cm IVSd: 1.3 cm LVOT diam: 1.9 cm LVIDs: 2.1 cm LVPWd: 0.87 cm RVDd: 2.8 cm FS: 50.0 % LVOT area: 2.7 cm2 Ao root diam: 2.8 cm LAV(MOD-bp): 43.9 ml LVAd ap4: 34.0 cm2 LAV(MOD-bp) Indexed: 24.1 ml/m2 LVLd ap4: 8.2 cm LAV(MOD-sp2): 49.9 ml EDV(MOD-sp4): 112.3 ml LAV(MOD-sp4): 38.1 ml EDV(sp4-el): 119.4 ml LVAs ap4: 24.2 cm2 LVLs ap4: 7.6 cm ESV(MOD-sp4): 62.7 ml ESV(sp4-el): 65.8 ml EF(MOD-sp4): 44.1 % EF(sp4-el): 44.9 % LVAd ap2: 35.3 cm2 SV(MOD-sp4): 49.6 ml SV(MOD-sp2): 54.5 ml LVLd ap2: 8.3 cm EDV(MOD-sp2): 119.6 ml EDV(sp2-el): 127.0 ml LVAs ap2: 25.0 cm2 LVLs ap2: 7.5 cm ESV(MOD-sp2): 65.1 ml ESV(sp2-el): 71.3 ml EF(MOD-sp2): 45.6 % SV(sp4-el): 53.6 ml LA dimension(2D): 3.8 cm LA A4 area: 15.4 cm2 RA A4 area: 13.6 cm2 TAPSE: 1.9 cm Time Measurements MV dec time: 0.28 sec Doppler Measurements & Calculations MV E max escobar: 98.9 cm/sec Lat Peak E' Escobar: 6.8 cm/sec Med Peak E' Escobar: 6.3 cm/sec MV A max escobar: 143.0 cm/sec E/E' lat: 14.5 E/E' med: 15.7 MV E/A: 0.69 MV V2 max: 164.2 cm/sec Ao V2 max: 230.9 cm/sec MV max P.8 mmHg MV dec slope: 357.7 cm/sec2 Ao max P.4 mmHg MV V2 mean: 114.2 cm/sec Ao V2 mean: 178.6 cm/sec MV mean P.5 mmHg Ao mean P.6 mmHg MV V2 VTI: 39.1 cm Ao V2 VTI: 54.9 cm AV (velocity ratio): 0.51 MVA(VTI): 2.0 cm2 [place](I,D): 1.4 cm2 [place](V,D): 1.3 cm2 LV V1 max: 113.3 cm/sec SV(LVOT): 76.7 ml PA V2 max: 101.5 cm/sec LV V1 max P.1 mmHg PA max PG (full): 1.9 mmHg LV V1 mean P.2 mmHg LV V1 mean: 86.3 cm/sec LV V1 VTI: 28.1 cm TR max escobar: 289.0 cm/sec TR max P.4 mmHg ECHO/Echo Complete W/ Contrast Interpretation Summary Normal LV size. The left ventricular ejection fraction is 45 %. Mild to moderate segmental systolic dysfunction (see wall motion). Mild focal aortic valve calcification. Mean aortic valve gradient 14 mmHg. Ordering Physician: Carisa Carty Referring Physician: Jeffrey Briceño Performed By: Mercedes Charles RDCS
--- NOTE | 2024-05-01 17:07 | STRESSREP_ITS ---
Stress Test Report Exercise myocardial perfusion stress test. 79-year-old lady with a history of coronary artery disease previous totally occluded left anterior descending artery presenting which dyspnea on exertion Stress protocol: Resting EKG demonstrates normal sinus rhythm with a rate of 73 bpm resting blood pressure is 132/78 mmHg. The patient exercised according to the regular Howard protocol for a total duration of 4 minutes and 30 seconds attaining a maximum heart rate of 127 bpm which was 90% of maximum predicted heart rate; the maximum workload was 7 metabolic equivalents. At rest there were no ST or T wave changes noted to suggest ischemia and at peak exercise upsloping ST changes only were noted which did not meet the criteria for ischemia. No clinical angina was noted the test was terminated due to the target heart rate being achieved/fatigue. The peak blood pressure was 172/78 mmHg. Rate-pressure product was 16,100. Myocardial perfusion protocol. 11.7 mCi of technetium 99m sestamibi was injected at rest. The patient exercised according to regular Howard protocol for total duration of 4-1/2 minutes and at peak exercise 33.9 mCi of technetium 99m sestamibi was injected stress images were obtained stress and rest images were reconstructed in comparing the short axis vertical long and horizontal long axis. Gated images were also obtained. Perfusion SPECT analysis: Review of the stress images demonstrate normal uptake of tracer noted in all areas of the myocardium with a large defect noted in the mid anterior wall exten ding to the apex. The resting images similarly demonstrate normal uptake of tracer noted in all areas of the myocardium except for the mid to distal anterior wall and apex. The above is suggestive of a previous anterior apical infarct with no reversibility to suggest ischemia. Gated SPECT analysis: The gated ejection fraction is 40%. 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 Mild left ventricular systolic dysfunction is present
== END | disposition home or self-care (01) ==
PROVIDERS: PCP Internal Medicine; Referring Provider Nurse Practitioner Gerontology; Visit Provider Nurse Practitioner Gerontology
DX: R06.09 Other forms of dyspnea (principal)
CPT/HCPCS: 78452; 93017; 93306; A9500; Q9957; A4216; C8929

== ENCOUNTER → 2024-05-27 | Outpatient (CLI) | payer MEDICARE, SELFPAY ==
[2022-06-17 13:41] VITALS: BMI 26.7
[2024-05-27 16:35] LABS: Erythrocyte Sedimentation Rate 5 mm/hr (0-30)
[2024-05-27 17:05] LABS: CRP < 2.90 mg/L (0.0-3.0)
== END | disposition home or self-care (01) ==
LOC: LAB 15:40
PROVIDERS: PCP Internal Medicine; Referring Provider Internal Medicine; Visit Provider Internal Medicine
DX: H57.11 Ocular pain, right eye (principal)
CPT/HCPCS: 36415; 85652; 86140

== ENCOUNTER → 2024-07-22 | Outpatient (CLI) | payer MEDICARE, SELFPAY ==
[2022-06-17 13:41] VITALS: BMI 26.7
[2024-07-22 16:27] LABS: Anion Gap 5 (5-15); BUN 14 mg/dL (7-18); BUN/Creat Ratio 20.3 RATIO (10-20); Calcium,Total 9.7 mg/dL (8.5-10.1); Chloride 106 mmol/L (98-107); Creatinine, Serum 0.69 mg/dL (0.55-1.02); EST Glomerular Filtration Rate 87 mL/min (>60); Est Glom Filt Rate - Afr Amer 106 mL/min (>60); Glucose 86 mg/dL (74-106); Potassium 4.5 mmol/L (3.5-5.1); Sodium Level 140 mmol/L (136-145)
== END | disposition home or self-care (01) ==
LOC: BIMLAB 11:18
PROVIDERS: PCP Internal Medicine; Referring Provider Internal Medicine; Visit Provider Internal Medicine
DX: I10 Essential (primary) hypertension (principal)
CPT/HCPCS: 36415; 80048

== ENCOUNTER → 2024-08-12 | Outpatient (CLI) | payer MEDICARE, SELFPAY ==
[2022-06-17 13:41] VITALS: BMI 26.7
--- NOTE | 2024-08-12 13:54 | CT_ITS ---
STUDY: CT CHEST WITH CONTRAST REASON FOR EXAM: Female, 79 years old. Chronic Cough RADIATION DOSAGE (If Supplied By Facility): CTDIvol = ( 8.56 ) mGy, DLP = ( 262.51 ) mGycm TECHNIQUE: Transaxial imaging was performed following intravenous administration of IV 100mL Isovue-300. Multiplanar coronal and sagittal images were reformatted. Individualized dose optimization techniques were used for this CT. COMPARISON: Comparison is made with prior study dated March 15, 2019. FINDINGS: CHEST Stable small benign-appearing bilateral axillary lymph nodes. Stable mild scarring at the lung apices more prominent on the right side. Stable mild linear scarring in the anterior aspect of the lingular segment of left upper lobe as well as in the right lung base. There is no demonstrated pleural abnormality. Calcification of the coronary arteries. Normal mediastinum. Normal hilar regions. Normal unenhanced pulmonary arteries. Normal aorta arch and descending thoracic aorta. There are degenerative changes of the thoracic spine. There is no demonstrated abnormality of the visualized upper abdomen. CT/Chest WITH Contrast IMPRESSION: Coronary artery calcification. Stable mild scarring as described. Electronically Signed: Hector Mckeon MD at 13:08 EDT ,
--- OUTSIDE RECORDS SUMMARY | 2024-08-12 15:22 | XMS RPT_ITS | CCD ---
Author Organization [facility] [place] Inform ion Partnership [facility] Care Team Providers Care Foot Specialist Name Role Phone Distel, Yumiko Unavailable Unavailable Distel, Yumiko Unavailable Unavailable Distel, Yumiko Unavailable Unavailable Rolly SPAULDING, Julia Velásquezdicta Primary Care Prov ider ROLLY, EFEWONGBE YENI Primary Care Unav ailable ROGER CARRILLO Attending Unava ilable SABINA KAY Consulting Unavaila ble AILEENE, EFEWONGBE YENI Primary Care Unav ailable ROGER CARRILLO Referring Unava ilable YORDY BONDS Attending Unavailable ROGER ARGUETA Admitting Unavailab harjeet Lofton MD, Effaribaongbe Yeni Primary Care Prov ider ROGER JORDAN Referring Unavailable ROGER JORDAN Referring Unavailable ROGER JORDAN Referring Unavailable SHELLEY RAMIREZ Attending Unavailable OLEGHE, EFEWONGBE YENI Primary Care Unav ailable JAD WILKINSON Attending Unavailable OLEGHE, EFEWONGBE YENI Primary Care Unav ailable JAD WILKINSON Referring Unavailable OLEGHE, EFEWONGBE YENI Primary Care Unav ailable JAD WILKINSON Referring Unavailable OLEGHE, EFEWONGBE YENI Primary Care Unav ailable Allergies Allergy Classification Reported Allergen(s) Allergy Type Date of Onset Reaction(s) Facility (8 sources) Sulfonamides (Antibiotic); Translations: [SULFA (SULFONAMIDE ANTIBIOTICS)] Propensity to adverse reactions to drug 3 Rash, Swelling [facility] (1 source) ALLERGIES NOT ON FILE; Translations: [ALLERGIES NOT ON FILE] Propensity to adverse reactions (disorder) [facility] 2 Repository Medications Current Medications Medication Drug Class(es) Dates Sig (Normalized) Sig (Original) amLODIPine 5 mg oral tablet (7 sources) Dihydropyridine Calcium Channel Audrey Start: 06-14-2024 take 1 tablet by mouth in the morning amLODIPine (Norvasc) 5 mg tablet Take 1 tablet (5 mg) by mouth early in the morning.. 06/14/2024 Active Start: 09-26-2023 End: 09-26-2023 take 10 mg by mouth once daily 10 mg, Oral, Daily, Fir st dose on Mon09/26/23 at 0900 take 1 tablet by julianna th once daily amLODIPine (NORVASC) 10 MG tablet Take 1 (one) tablet (10 mg total) by mouth daily . 0 Active atorvastatin 40 mg oral tablet (7 sources) HMG-CoA Reductase Inhibitor Start: 04-07-2024 take 1 tablet by mouth once daily at bedtime for hyperlipidemia atorvastatin (Lipitor) 40 mg tablet Take 1 tablet (40 mg) by mouth once daily at bedtime. for cholesterol 04/07/2024 Active Start: 09-26-2023 End: 09-26-2023 take 10 mg by mouth once daily 10 mg, Oral, Daily, Fir st dose on Mon09/26/23 at 0900 calcium carbonate 1250 mg / cholecalciferol 200 unt oral tablet (4 sources) Vitamin D take 1 tablet by mouth once daily calcium carbonate-vitamin D3 500 mg-5 mcg (200 unit) tablet Take 1 tablet by mouth once daily. Active 30 actuat fluticasone furoate 0.1 mg/actuat / umeclidinium 0.0625 mg/actuat / vilanterol 0.025 mg/actuat dry powder inhaler (4 sources) Anticholinergic, Corticosteroid, beta2-Adrenergic Agonist fluticasone-umeclidi n-vi lanter (Trelegy Ellipta) 100-62.5-25 mcg blister with device Inhale. Active furosemide 40 mg oral tablet (4 sources) Loop Diuretic Start: take 1 tablet by mouth two times weekly furosemide (Lasix) 40 mg tablet Take 1 tablet (40 mg) by mouth 2 times a week. 07/03/2024 Active Lactobacillus acidophilus (4 sources) Start: Acidophilus capsule TAKE 1 CAPSULE BY MOUTH ONCE DAILY FOR 90 DAYS. TAKE 3 HOURS APART FROM ANY ANTIBIOTICS 01/05/2024 Active nitroglycerin 0.4 mg sublingual tablet (8 sources) Nitrate Vasodilator Start: 024 nitroglycerin (Nitrostat) 0.4 mg SL tablet DISSOLVE ONE TABLET UNDER THE TONGUE EVERY 5 TO 15 MINUTES NEEDED FOR CHEST PAIN. DO NOT EXCEED A TOTAL OF 3 DOSES IN 15 MINUTES 04/11/2024 Active Start: 09-26-2023 End: 09-26-2023 1 inch, Topical, 3 times kaitlin ly, First dose on Mon09/26/23 at 0200 Hold for SBP less than 90. Start: 09-26-2023 End: 09-26-2023 nitroGLYCERIN (NITROSTAT) SL tablet 0.4 mg apply 0.4 mg transde rmal route every hour nitroGLYCERIN (NITRODUR) 0.4 mg/hr Place 1 (one) patch on the skin daily Patient states she's taking pills, not patches . 0 Active pregabalin 25 mg oral capsule (3 sources) Start: 07-25-2024 take 1 capsule by mouth twice daily pregabalin (Lyrica) 25 mg capsule Indications: Cervical neuritis , Chronic left shoulder pain Take 1 capsule (25 mg) by mouth 2 times a day. 60 capsule 1 07/25/2024 Active Completed/Discontinued Medications Medication Drug Class(es) Dates Sig (Normalized) Sig (Original) acetaminophen 325 mg oral tablet (5 sources) Start: 09-26-2023 End: 09-26-2023 take 1 tablet by mouth every four hours as needed for pain and headache acetaminophen (TYLENOL) tablet 650 mg take 1 tablet by julianna th every eight hours as needed acetaminophen (Tylenol 8 HOUR) 650 mg ER tablet Take 1 tablet (650 mg) by mouth every 8 hours if needed for mild pain (1 - 3). Do not crush, chew, or split. Active aluminum hydroxide 40 mg/ml / magnesium hydroxide 40 mg/ml / simethicone 4 mg/ml oral suspension (1 source) Start: 09-26-2023 End: 09-26-2023 take 30 mL by mouth every four hours as needed aluminum-magnesium hydroxide-simethicone (MAALOX PLUS) 200-200-20 mg/5 mL suspension 30 mL aspirin 81 mg chewable tablet (7 sources) Platelet Aggregation Inhibitor, Nonsteroidal Anti-inflammator y Drug Start: 09-26-2023 End: 09-26-2023 take 81 mg by mouth once daily 81 mg, Oral, Daily, First dose on Mon09/26/23 at 0900 1 ml atropine sulfate 1 mg/ml injection (1 source) Anticholinergic, Cholinergic Muscarinic Antagonist Start: 09-26-2023 End: 09-26-2023 1 mg, Intravenous, As needed, SINGLE DOSE for bradycardia (HR less than 50), complete heart block, or escape rhythms with symptoms of hemodynamic compromise, Starting on Mon09/26/23 at 0103 [] NOTIFY PHYSICIAN, and request patient transfer to cardiac unit if not already there. [] If patient has history of glaucoma, notify physician before administering Atropine, if condition allows. bisacodyl 10 mg rectal suppository (1 source) Stimulant Laxative Start: 09-26-2023 End: 09-26-2023 bisacodyL (DULCOLAX) suppository 10 mg clopidogrel 75 mg oral tablet (7 sources) P2Y12 Platelet Inhibitor Start: 09-26-2023 End: 09-26-2023 take 75 mg by mouth once daily 75 mg, Oral, Daily, First dose on Mon09/26/23 at 0900 docusate sodium 50 mg / sennosides, [facility] 8.6 mg oral tablet (1 source) Start: 09-26-2023 End: 09-26-2023 senna-docusate (SENNA-S) 8.6-50 mg per tablet 1 tablet 0.4 ml enoxaparin sodium 100 mg/ml prefilled syringe (1 source) Low Molecular Weight Heparin Start: 09-26-2023 End: 09-26-2023 inject 40 mg by subcutaneous injection once daily 40 mg, Subcutaneous, Daily, First dose on Mon09/26/23 at 0900 Administer in abdomen unless otherwise directed by prescriber. Notify physician if patient refuses. Indication: VTE Prophylaxis iopamidoL (ISOVUE-370) 370 mg iodine /mL (76 %) injection 75 mL (1 source) Start: 09-26-2023 End: 09-26-2023 iopamidoL (ISOVUE-370) 370 mg iodine /mL (76 %) injection 75 mL magnesium hydroxide 80 mg/ml oral suspension (1 source) Start: 09-26-2023 End: 09-26-2023 magnesium hydroxide (MOM) 400 mg/5 mL suspension 2,400 mg melatonin 3 mg oral tablet (1 source) Start: 09-26-2023 End: 09-26-2023 melatonin tablet 3 mg 24 hr metoprolol succinate 50 mg extended release oral tablet (7 sources) beta-Adrenergic Audrey Start: 09-26-2023 End: 09-26-2023 take 50 mg by mouth once daily 50 mg, Oral, Daily, First dose on Mon09/26/23 at 0900 DO NOT CRUSH OR CHEW. take 50 mg by mouth once daily M ETOPROLOL SUCCINATE ORAL Take 50 mg by mouth once daily. Active morphine sulfate 15 mg oral tablet (2 sources) Opioid Agonist Start: 09-26-2023 End: 09-26-2023 take 7.5-15 mg by mouth every four hours as needed morphine (MSIR) tablet 7.5-15 mg Start: 09-26-2023 End: 09-26-2023 take 2-4 mg intravenously every three hours as needed morphine injection 2-4 mg naloxone (NARCAN) injection 0.1 mg (1 source) Start: 09-26-2023 End: 09-26-2023 naloxone (NARCAN) injection 0.1 mg ondansetron (ZOFRAN-ODT) disintegrating tablet 4 mg (1 source) Start: 09-26-2023 End: 09-26-2023 take 1 tablet by mouth every six hours as needed for nausea and vomiting ondansetron (ZOFRAN-ODT) disintegrating tablet 4 mg perflutren lipid microspheres (DEFINITY) 0.143 mg/mL solution 0-10 mL of mixture (1 source) Start: 09-26-2023 End: 09-26-2023 0-10 mL of mixture, Intravenous, Once in imaging, contrast, IF suboptimal echo, Starting on Mon09/26/23 at 0102, For 48 hours Prepare syringe by withdrawing 1.3 mL of perflutren (DEFINITY) from the 2ml vial. Further dilute the 1.3 mL of perflutren with Sodium Chloride (NS) 0.9% to total volume of 10 ml. Chart total ML OF MIXTURE given to patient. sennosides, [facility] 8.6 mg oral tablet (1 source) Start: 09-26-2023 End: 09-26-2023 senna (SENOKOT) tablet 8.6 mg traZODone hydrochloride 50 mg oral tablet (1 source) Serotonin Reuptake Inhibitor Start: 09-26-2023 End: 09-26-2023 traZODone (DESYREL) tablet 50 mg Problems Active Problems Problem Classification Problem Date Documented Da te Episodic/Chronic Nonspecific chest pain (6 sources) Chest pain; Translations: [Chest pain, unspecified] Onset: 09-25-2023 09-26-2023 Episodic Other nervous system disorders (2 sources) Other chronic pain; Translations: [Other chronic pain] Onset: 07-25-2024 Chronic Other non-traumatic joint disorders (6 sources) Chronic pain of left upper limb; Translations: [Pain in left shoulder] Onset: 07-25-2024 07-25-2024 Episodic Other non-traumatic joint disorders (2 sources) Pain in left shoulder; Translations: [Pain in left shoulder] Onset: 07-25-2024 Episodic Residual codes; unclassified (5 sources) Procedure not done; Translations: [Procedure and treatment not carried out due to patient leaving prior to being seen by health care provider] Onset: 07-24-2024 07-24-2024 Episodic Residual codes; unclassified (2 sources) Pain; Translations: [Pain] Onset: 07-24-2024 Episodic Spondylosis; intervertebral disc disorders; other back problems (6 sources) Inflammation of sacroiliac joint; Translations: [Sacroiliitis, not elsewhere classified] Onset: 03-27-2024 03-27-2024 Chronic Spondylosis; intervertebral disc disorders; other back problems (8 sources) Brachial (cervical) neuritis; Translations: [Radiculopathy, cervical region] Onset: 07-25-2024 07-25-2024 Episodic Unclassified (4 sources) Obstructive sleep apnea (adult) (pediatric); Translations: [Periodic limb movement disorder] Onset: 01-11-2018 Chronic Past or Other Problems Problem Classification Problem Date Documented Da te Episodic/Chronic Malaise and fatigue (6 sources) Asthenia; Translations: [Weakness] Onset: 03-27-2024 03-27-2024 Episodic Unclassified (4 sources) Onset: 03-27-2024 03-27-2024 Results Test Name Value Interpretation Reference Range Facility XR CERVICAL SPINE 2-3 VIEWSo n 07-25-2024 XR CERVICAL SPINE 2-3 VIEWS Interpreted By: Lizbeth Omalley, STUDY: Cervical spine, 3 views. INDICATION: Signs/Symptoms:left shoulder and arm pain. COMPARISON: None. ACCESSION NUMBER(S): [id number] ORDERING CLINICIAN: JAD WILKINSON FINDINGS: There is mild levoscoliosis centered in the upper thoracic region. There is mild dextroscoliosis centered in the midcervical region. Grade 1 C3-4 and C4-5 anterolisthesis. Moderate C5-6 spondylosis with disc height loss and osteophytes. Mild spondylosis at C3-4, C4-5, and C6-7. Vertebral body heights are preserved. Posterior elements are intact. Prevertebral soft tissues are unremarkable. IMPRESSION: 1. Multilevel cervical spine degenerative changes as above. 2. Mild S shaped scoliosis of the cervicothoracic spine. MACRO: None. Signed by: Lizbeth Omalley 07/26/2024 9:30 PM Dictation workstation: [email or web address] [facility] Comment on above: Order Comment: AP an d lateral cervical XR XR SHOULDER LEFT 2+ VIEWSon 07-25-2024 XR SHOULDER LEFT 2+ VIEWS Interpreted By: Lizbeth Omalley, STUDY: Left shoulder, five views. INDICATION: Signs/Symptoms:left shoulder and arm pain. COMPARISON: None. ACCESSION NUMBER(S): [id number] ORDERING CLINICIAN: JAD WILKINSON FINDINGS: No acute fracture or malalignment. Mild glenohumeral and acromioclavicular joint degenerative changes with small osteophytes. Soft tissues are unremarkable. IMPRESSION: 1. 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 MACRO: None. Signed by: Lizbeth Omalley 07/26/2024 9:32 PM Dictation workstation: [id number] [facility] APTT (plasma)on 09-26-2023 aPTT Coag (Bld) [Time] 32 s [facility] Basic metabolic 2000 panelon 09-26-2023 Anion gap [Moles/Vol] 7 mmol/L Low 10 - 20 mmol/L [facility] Calcium [Mass/Vol] 8.8 mg/dL 8.4 - 10. 2 mg/dL [facility] Chloride [Moles/Vol] 110 mmol/L High 98 - 108 mmol/L [facility] Creatinine [Mass/Vol] 0.76 mg/dL 0.60 - 1.20 mg/dL [facility] GFR/1.73 sq M.predicted CKD-EPI (S/P/Bld) [Vol rate/Area] 80 - PINF [facility] Comment on above: Estimated GFR was ca lculated using the 2020 CKD-EPI creatinine equation. Glucose [Mass/Vol] 98 mg/dL 65 - 99 mg/dL [facility] HCO3 [Moles/Vol] 28 mmol/L 21 - 32 mmol/L [facility] [place] Interpretation and review of laboratory results Abnormal [facility] Potassium [Moles/Vol] 3.6 mmol/L 3.5 - 5.1 mmol/L [facility] Sodium [Moles/Vol] 141 mmol/L 135 - 145 mmol/L [facility] Urea nitrogen [Mass/Vol] 15 mg/dL 8 - 25 mg/dL [facility] Urea nitrogen/Creatinine [Mass ratio] 19.7 mg/mg 10.0 - 20.0 [facility] has implemented the eGFR calculation approach that does not have a coefficient for race that conforms to the NKF-ASN Task Force Recommendations. [facility] CBC Auto Differentialon 09-15 Basophils (Bld) [#/Vol] 0.03 10*3/uL [facility] Basophils/100 WBC (Bld) 0.4 % [facility] Eosinophils (Bld) [#/Vol] 0.17 10*3/uL [facility] Eosinophils/100 WBC (Bld) 2.3 % [facility] Erythrocyte distribution width (RBC) [Entitic vol] 12.6 % 11.6 - 14.8 % [facility] Hematocrit (Bld) [Volume fraction] 36.8 % 36.0 - 46.0 % [facility] Hemoglobin (Bld) [Mass/Vol] 12.0 g/dL 12.0 - 16.0 g/dL [facility] Immature granulocytes (Bld) [#/Vol] 0.03 10*3/uL [facility] Immature granulocytes/100 WBC (Bld) 0.40 % [facility] Comment on above: The IG parameter is the percentage of metamyelocytes, myelocytes and promyelocytes. An immature granulocyte count (IG) of 1% or more suggests the possibility of infection, an IG count of 3% is very likely related to an infection. Lymphocytes (Bld) [#/Vol] 2.24 10*3/uL [facility] Lymphocytes/100 WBC (Bld) 29.8 % [facility] MCH (RBC) [Entitic mass] 29.1 pg 26.0 - 34.0 pg [facility] MCHC (RBC) [Mass/Vol] 32.6 g/dL 31.0 - 37.0 g/dL [facility] MCV (RBC) [Entitic vol] 89.1 fL 80.0 - 100.0 fL [facility] Monocytes (Bld) [#/Vol] 0.60 10*3/uL [facility] Monocytes/100 WBC (Bld) 8.0 % [facility] Neutrophils (Bld) [#/Vol] 4.45 10*3/uL [facility] Neutrophils/100 WBC (Bld) 59.1 % [facility] Nucleated RBC (Bld) [#/Vol] 0.00 10*3/uL [facility] Nucleated RBC/100 WBC (Bld) [Ratio] 0.0 % [facility] Platelet mean volume (Bld) [Entitic vol] 10.3 fL 9.4 - 12.4 fL [facility] Platelets (Bld) [#/Vol] 217 10*3/uL [facility] RBC (Bld) [#/Vol] 4.13 10*6/uL [facility] WBC (Bld) [#/Vol] 7.52 10*3/uL [facility] COVID-19/INFLUENZA A,B MOLEC [facility] 09-26-2023 SARS-CoV-2 (COVID-19) Ab IA Ql SARS-COV-2 (VINICIUS): Not Detected INFLUENZA A (VINICIUS): Not Detected INFLUENZA B (VINICIUS): Not Detected Normal Not Detected [facility] Comment on above: Order Comment: This test was performed under the FDA's Emergency Use Authorization (EUA). Testing was performed using the Mehul Vishal SARS-CoV-2 RT-PCR AND Influenza A/B Nucleic Acid Test on the Vishal Vinicius System. This test has not been approved for use in asymptomatic patients and its performance in this patient population has not been evaluated. Negative results do not rule out the presence of SARS-CoV-2, influenza A, and/or influenza B. Fact sheets for the EUA can be found at the following links: For Healthcare Providers: https://www.fda.gov/media/272350/download For Patients: https://www.fda.gov/media/150965/download Performed By: #### L [id number] #### [facility] [address] [address] Raffaele Lewis M[address]D. [id number] CT Abdomen and Pelvis W magno Lord 09-26-2023 1. No pulmonary embolic disease. 2. No dissection or aneurysm of thoracic or the abdominal aorta. 3. Except for some dependent atelectatic changes at the lung bases, the lungs appear unremarkable. 4. Prior cholecystectomy with mild intra-, extrahepatic biliary ductal dilatation without obvious radiopaque filling defects in these bile ducts. 5. No radiographic evidence of acute or chronic pancreatitis. 6. There is a tiny cyst in the right kidney. There is no nephro- or ureterolithiasis. 7. Normal appendix. 8. Diverticulosis without diverticulitis. 9. Previous hysterectomy. [employer]/[place] Workstation ID: [id number] [employer] [facility] EXAMINATION: CT PULMONARY ANGIOGRAM, ENHANCED CT SCAN OF THE ABDOMEN AND PELVIS, 09/26/2023 HISTORY: Injury/Trauma or Illness?:Illness/Other How long have you had these symptoms (acute/chronic)?:Acute Left lower chest pain; PE suspected; r/o pancreatitis COMPARISON FILMS: AP chest 09/25/2023. TECHNIQUE: 2.5 mm axial images from thoracic inlet through upper abdomen and subsequently 3.75 mm axial images from lung bases through ischial tuberosities following administration of intravenous contrast were obtained. No oral contrast was utilized. Sagittal, coronal MIP (maximum intensity projection) were also obtained. Dose reduction techniques were achieved by using automated exposure control and/or adjustment of mA and/or kV according to patient size and/or use of iterative reconstruction technique. FINDINGS: CT CHEST: There is some scarring at the lung apices. There are some dependent atelectatic changes posteriorly at the lung bases. The remaining lungs otherwise are free of infiltrates, pleural effusions, pulmonary edema or pneumothorax. There are no filling defects in the opacified portions of the superior vena cava. The main, left, right pulmonary arteries seem widely patent. No definite thrombi or emboli are seen in the lobar or the segmental branches particularly in the left lower lobe distribution. The visualized thyroid, great vessels, aorta seem normal except for mild atherosclerotic changes of the aorta. There is no significant axillary, hilar or mediastinal adenopathy. The heart size seems normal. The pericardium appears normal. There are significant coronary artery calcifications as well as calcifications of the aortic annulus. There is a small sliding-type hiatus hernia. CT ABDOMEN: There is a tiny lesion in the lateral segment of left hepatic lobe. There is mild intra-, extrahepatic biliary ductal dilatation, this probably is related to previous cholecystectomy. The spleen, pancreas, adrenal glands, kidneys appear normal. The abdominal aorta is moderately atherosclerotic. There is no retroperitoneal or mesenteric adenopathy. There is a small low-attenuation lesion in the upper pole of the right kidney, measuring 5 mm. The bowel loops are of normal caliber with a normal-appearing appendix. CT PELVIS: The bladder is normal. The uterus, ovaries are not seen. There is no ureterolithiasis. There is no pelvic adenopathy. There are no focal fluid collections. The images on bone windows demonstrate degenerative disc disease with vacuum disc phenomena at L5-S1. [employer] Markell Mae MD - 09/26/2023 EXAMINATION: CT PULMONARY ANGIOGRAM, ENHANCED CT SCAN OF THE ABDOMEN AND PELVIS, 09/26/2023 HISTORY: Injury/Trauma or Illness?:Illness/Other How long have you had these symptoms (acute/chronic)?:Acute Left lower chest pain; PE suspected; r/o pancreatitis COMPARISON FILMS: AP chest 09/25/2023. TECHNIQUE: 2.5 mm axial images from thoracic inlet through upper abdomen and subsequently 3.75 mm axial images from lung bases through ischial tuberosities following administration of intravenous contrast were obtained. No oral contrast was utilized. Sagittal, coronal MIP (maximum intensity projection) were also obtained. Dose reduction techniques were achieved by using automated exposure control and/or adjustment of mA and/or kV according to patient size and/or use of iterative reconstruction technique. FINDINGS: CT CHEST: There is some scarring at the lung apices. There are some dependent atelectatic changes posteriorly at the lung bases. The remaining lungs otherwise are free of infiltrates, pleural effusions, pulmonary edema or pneumothorax. There are no filling defects in the opacified portions of the superior vena cava. The main, left, right pulmonary arteries seem widely patent. No definite thrombi or emboli are seen in the lobar or the segmental branches particularly in the left lower lobe distribution. The visualized thyroid, great vessels, aorta seem normal except for mild atherosclerotic changes of the aorta. There is no significant axillary, hilar or mediastinal adenopathy. The heart size seems normal. The pericardium appears normal. There are significant coronary artery calcifications as well as calcifications of the aortic annulus. There is a small sliding-type hiatus hernia. CT ABDOMEN: There is a tiny lesion in the lateral segment of left hepatic lobe. There is mild intra-, extrahepatic biliary ductal dilatation, this probably is related to previous cholecystectomy. The spleen, pancreas, adrenal glands, kidneys appear normal. The abdominal aorta is moderately atherosclerotic. There is no retroperitoneal or mesenteric adenopathy. There is a small low-attenuation lesion in the upper pole of the right kidney, measuring 5 mm. The bowel loops are of normal caliber with a normal-appearing appendix. CT PELVIS: The bladder is normal. The uterus, ovaries are not seen. There is no ureterolithiasis. There is no pelvic adenopathy. There are no focal fluid collections. The images on bone windows demonstrate degenerative disc disease with vacuum disc phenomena at L5-S1. IMPRESSION: 1. No pulmonary embolic disease. 2. No dissection or aneurysm of thoracic or the abdominal aorta. 3. Except for some dependent atelectatic changes at the lung bases, the lungs appear unremarkable. 4. Prior cholecystectomy with mild intra-, extrahepatic biliary ductal dilatation without obvious radiopaque filling defects in these bile ducts. 5. No radiographic evidence of acute or chronic pancreatitis. 6. There is a tiny cyst in the right kidney. There is no nephro- or ureterolithiasis. 7. Normal appendix. 8. Diverticulosis without diverticulitis. 9. Previous hysterectomy. KKV/cdr Workstation ID: [id number] [facility] Radiology Study observation (narrative) [facility] CT Abdomen and Pelvis W cont rast IVOrdered By: Markell Mansfield on 09-26-2023 [facility] Work Phone: CTA PULM ART AND CT ABD PELV IS WITH IV CONTRASTon 09-26-[address] ABD PELVIS WITH IV CONTRAST EXAMINATION: CT PULMONARY ANGIOGRAM, ENHANCED CT SCAN OF THE ABDOMEN AND PELVIS, 09/26/2023 HISTORY: Injury/Trauma or Illness?:Illness/Other How long have you had these symptoms (acute/chronic)?:Acute Left lower chest pain; PE suspected; r/o pancreatitis COMPARISON FILMS: AP chest 09/25/2023. TECHNIQUE: 2.5 mm axial images from thoracic inlet through upper abdomen and subsequently 3.75 mm axial images from lung bases through ischial tuberosities following administration of intravenous contrast were obtained. No oral contrast was utilized. Sagittal, coronal MIP (maximum intensity projection) were also obtained. Dose reduction techniques were achieved by using automated exposure control and/or adjustment of mA and/or kV according to patient size and/or use of iterative reconstruction technique. FINDINGS: CT CHEST: There is some scarring at the lung apices. There are some dependent atelectatic changes posteriorly at the lung bases. The remaining lungs otherwise are free of infiltrates, pleural effusions, pulmonary edema or pneumothorax. There are no filling defects in the opacified portions of the superior vena cava. The main, left, right pulmonary arteries seem widely patent. No definite thrombi or emboli are seen in the lobar or the segmental branches particularly in the left lower lobe distribution. The visualized thyroid, great vessels, aorta seem normal except for mild atherosclerotic changes of the aorta. There is no significant axillary, hilar or mediastinal adenopathy. The heart size seems normal. The pericardium appears normal. There are significant coronary artery calcifications as well as calcifications of the aortic annulus. There is a small sliding-type hiatus hernia. CT ABDOMEN: There is a tiny lesion in the lateral segment of left hepatic lobe. There is mild intra-, extrahepatic biliary ductal dilatation, this probably is related to previous cholecystectomy. The spleen, pancreas, adrenal glands, kidneys appear normal. The abdominal aorta is moderately atherosclerotic. There is no retroperitoneal or mesenteric adenopathy. There is a small low-attenuation lesion in the upper pole of the right kidney, measuring 5 mm. The bowel loops are of normal caliber with a normal-appearing appendix. CT PELVIS: The bladder is normal. The uterus, ovaries are not seen. There is no ureterolithiasis. There is no pelvic adenopathy. There are no focal fluid collections. The images on bone windows demonstrate degenerative disc disease with vacuum disc phenomena at L5-S1. IMPRESSION: 1. No pulmonary embolic disease. 2. No dissection or aneurysm of thoracic or the abdominal aorta. 3. Except for some dependent atelectatic changes at the lung bases, the lungs appear unremarkable. 4. Prior cholecystectomy with mild intra-, extrahepatic biliary ductal dilatation without obvious radiopaque filling defects in these bile ducts. 5. No radiographic evidence of acute or chronic pancreatitis. 6. There is a tiny cyst in the right kidney. There is no nephro- or ureterolithiasis. 7. Normal appendix. 8. Diverticulosis without diverticulitis. 9. Previous hysterectomy. [employer] Workstation ID: [id number] Dictated by: MARKELL MANSFIELD on MonSep 26, 2023 9:48:40 AM EST Transcribed by: LINDA DUMONT on MonSep 26, 2023 10:28:23 AM EST Finalized by: MARKELL MANSFIELD on MonSep 26, 2023 11:52:25 AM EST Normal [facility] Comment on above: Order Comment: Injur y/Trauma or Illness?:Illness/Other How long have you had these symptoms (acute/chronic)?:Acute Reason for exam?:left lower chest pain and general abdominal pain Type of Exam?:Initial Additional signs and symptoms?:n/a D-Dimer, Quantitativeon 09-15 Fibrin D-dimer FEU (PPP) [Mass/Vol] 0.48 [facility] A D-dimer concentration of <0.5 micrograms per milliliter FEU is considered a low probability for pulmonary embolus (PE) and deep venous thrombosis (DVT). Results of this test should always be interpreted in conjunction with the patient's medical history,clinical presentation, and other findings. Clinical diagnosis should not be based on the results of the D-dimer alone. [facility] EKGon 09-26-2023 [facility] HbA1c (Bld) [Mass fraction]O rdered By: Isabel Vallejo on 09-26-2023 Average glucose Estimated from glycated hemoglobin (Bld) [Mass/Vol] 114 mg/dL 68 - 114 mg/dL [facility] Interpretation and review of laboratory results Normal [facility] Normal: 4.0% - 5.6% Increased risk for diabetes: 5.7% - 6.4% Diabetes: >= 6.5% Pediatrics: No established reference range Estimated average glucose: 68-114 mg/dL [facility] Hemoglobin A1c levelOrdered By: Isabel Vallejo on 09-26-2023 HbA1c (Bld) [Mass fraction] 5.6 % 4.0 - 5.6 % [facility] Hepatic function 2000 panelo n 09-26-2023 Albumin [Mass/Vol] 3.4 g/dL 3.2 - 5.2 g/dL [facility] ALP [Catalytic activity/Vol] 91 U/L 40 - 150 U/L [facility] ALT [Catalytic activity/Vol] 23 U/L 14 - 65 U/L [facility] AST [Catalytic activity/Vol] 13 U/L 0-35 U/L [facility] Bilirubin [Mass/Vol] 0.3 mg/dL 0.0 - 1.3 mg/dL [facility] Bilirubin.conjugate d [Mass/Vol] mg/dL 0.0 - 0.4 mg/dL [facility] Interpretation and review of laboratory results Normal [facility] Protein [Mass/Vol] 6.7 g/dL 6.0 - 8.0 g/dL [facility] INR Coag (PPP) [Relative shannon e]on 09-26-2023 PT Coag (PPP) [Time] 13.5 s [facility] During the induction phase of oral anticoagulation, the INR may not reflect the anticoagulation status of the patient. Therapeutic ranges for INR's are: Most clinical situations: INR 2.0-3.0 Mechanical Prosthetic Valve: INR 2.5-3.5 Critical: INR >5.0 [facility] Influenza virus A and B RNA and SARS-CoV-2 (COVID-19) N gene panel GODFREY+probe (Resp)Ordered By: Marlys Pastor on 09-26-2023 FLUAV RNA GODFREY+probe Ql (Unsp spec) Not detected Not Detected [facility] FLUBV RNA GODFREY+probe Ql (Unsp spec) Not detected Not Detected [facility] Interpretation and review of laboratory results Normal [facility] SARS-CoV-2 (COVID-19) RNA GODFREY+probe Ql (Resp) Not detected Not Detected [facility] This test was performed under the FDA's Emergency Use Authorization (EUA). Testing was performed using the Mehul Vishal SARS-CoV-2 RT-PCR & Influenza A/B Nucleic Acid Test on the Vishal Vinicius System. This test has not been approved for use in asymptomatic patients and its performance in this patient population has not been evaluated. Negative results do not rule out the presence of SARS-CoV-2, influenza A, and/or influenza B. Fact sheets for the EUA can be found at the following links: For Healthcare Providers: https://www.[facility]/vt edenilson/411469/download For Patients: https://www.[facility].gov/vt edenilson/971687/download [facility] Lipaseon 09-26-2023 Lipase [Catalytic activity/Vol] 35 U/L 13-75 U/L [facility] Lipid 1996 panelon 3 Cholesterol [Mass/Vol] 177 mg/dL 100 - 199 mg/dL [facility] Comment on above: National Cholesterol Education Program Guidelines: Cholesterol Desirable: <200 mg/dL Borderline High: 200-239 mg/dL High: greater than or equal to 240 mg/dL Cholesterol in HDL [Mass/Vol] 79 mg/dL 40 - 59 mg/dL [facility] Comment on above: National Cholesterol Education Program Guidelines: HDL Cholesterol Low: <40 mg/dL Near Optimal: 40-59 mg/dL High: greater than or equal to 60 mg/dL Cholesterol in LDL [Mass/Vol] 83 mg/dL 10 - 130 mg/dL [facility] Comment on above: National Cholesterol Education Program Guidelines: LDL Cholesterol Optimal: <100 mg/dL Near Optimal/above Optimal: 100-129 mg/dL Borderline High: 130-159 mg/dL High: 160-189 mg/dL Very High: greater than or equal to 190 mg/dL Cholesterol non HDL [Mass/Vol] 98 mg/dL [facility] Comment on above: National Cholesterol Education Program Guidelines: NON HDL Cholesterol Desirable: <130 mg/dL Borderline High: 130-159 mg/dL High: 160-189 mg/dL Very High: > or = 190 mg/dL Cholesterol.total/C holesterol in HDL [Mass ratio] 2.2 {ratio} ratio [facility] Comment on above: Female Cholesterol/H DL Ratio: Average risk: 4.4 1/2 average risk: 3.3 2 x average risk: 7.1 Triglyceride [Mass/Vol] 74 mg/dL 30 - 150 mg/dL [facility] Comment on above: National Cholesterol Education Program Guidelines: Triglyceride Normal: <150 mg/dL Borderline High: 150-199 mg/dL High: 200-499 mg/dL Very High: greater than or equal to 500 mg/dL Magnesium levelon 09-26-2023 Magnesium [Mass/Vol] 2.2 mg/dL 1.6 - 2.4 mg/dL [facility] NT proBNPon 09-26-2023 Natriuretic peptide.B prohormone N-Terminal [Mass/Vol] 728 pg/mL High 0 - 300 pg/mL [facility] Natriuretic peptide.B prohor shankar N-Terminal [Mass/Vol]on 09-26-2023 Interpretation and review of laboratory results Abnormal [facility] Pride Study Cut-offs Rule In: < /= 50 Years >450 pg/mL 51 Years - 75 Years >900 pg/mL 76 Years - 99 Years >1800 pg/mL Rule Out: All patients <300 pg/mL [facility] No Panel Informationon 09-26 Interpretation and review of laboratory results Normal [facility] Interpretation and review of laboratory results Normal [facility] Interpretation and review of laboratory results Normal [facility] PT/INR nowon 09-26-2023 INR Coag (PPP) [Relative time] 1.0 {INR} 0.8 - 1.1 [facility] Phosphoruson 09-26-2023 Phosphate [Mass/Vol] 4.0 mg/dL 2.8 - 4.1 mg/dL [facility] TSH DL <= 0.005 mIU/L Qnon 1 11-27-2022 TSH Qn 2.26 m[IU]/L [facility] Troponinon 09-26-2023 Troponin I 11 ng/L NINF - 59 ng/L [facility] Troponin I Interpretation Normal [facility] Troponin x 2 (Now and Repeat in 3 hours)on 09-26-2023 Delta Difference Troponin I -1 ng/L < -/+ 12 change [facility] Troponin I Delta Change No biomarker evidence of cardiac injury. [facility] Troponin I 10 ng/L NINF - 59 ng/L [facility] Delta Difference Troponin I 0 ng/L < -/+ 12 change [facility] Troponin I Delta Change No biomarker evidence of cardiac injury. [facility] Troponin I 11 ng/L NINF - 59 ng/L [facility] aPTT Coag (Bld) [Time]on Interpretation and review of laboratory results Normal [facility] Therapeutic range fo r APTT's is 68 - 104 seconds [facility] XR CHEST PA/APon 09-25-2023 XR CHEST PA/AP EXAMINATION: XR CHEST PA/AP HISTORY: ORDERING SYSTEM PROVIDED HISTORY: chest pain, TECHNOLOGIST PROVIDED HISTORY: Illness/Other Reason for exam: chest pain Cancer History: n Surgery, RadiationHistory: n Encounter Type: Initial Additional signs and symptoms: none ORDERING SYSTEM PROVIDED DIAGNOSIS CODES: R07.9 Chest pain, unspecified type COMPARISON: None FINDINGS: One-view chest x-ray. No pneumothorax, pleural effusion or focal airspace consolidation. Heart is normal in size. Dextroconvex curvature of the thoracic spine. [id number] thoracic spondylosis. IMPRESSION: No acute cardiopulmonary process. Workstation ID: [id number] Dictated by: AMBER TURPIN on MonSep 25, 2023 2:42:15 PM EST Transcribed by: AMBER TURPIN on MonSep 25, 2023 2:42:15 PM EST Finalized by: AMBER TURPIN on MonSep 25, 2023 2:42:15 PM EST [facility] Comment on above: Order Comment: Injur y/Trauma or Illness?:Illness/Other How long have you had these symptoms (acute/chronic)?:Acute Reason for exam?:chest pain History of cancer?:n Surgeries, chemotherapy, or radiation?:n Type of Exam?:Initial Additional signs and symptoms?:none Basic Metabolic Panelon 07-0 Anion gap [Moles/Vol] 12 mmol/L Normal 9-18 [facility] Comment on above: Performed By: #### B MP #### [address] [address] Calcium [Mass/Vol] 9.1 mg/dL Normal 8.5-10.2 [facility] Comment on above: Performed By: #### B MP #### [facility] [address] [place], [place] [address] Chloride [Moles/Vol] 103 mmol/L Normal 97-105 [facility] Comment on above: Performed By: #### B MP #### [facility] [address] [place], [place] [address] CO2 Blood 24 mmol/L Normal 22-30 [facility] Comment on above: Performed By: #### B MP #### [facility] [address] [place], [place] [address] Creatinine [Mass/Vol] 0.96 mg/dL Normal 0.58-0.96 [facility] Comment on above: Performed By: #### B MP #### [facility] [address] [place], [place] [address] Glucose [Mass/Vol] 90 mg/dL Normal 74-99 [facility] Comment on above: Result Comment: The [place] [employer] (ADA) provides guidance for cutoff values for fasting glucose and random glucose. The ADA defines fasting as no caloric intake for at least 8 hours.Fasting plasma glucose results between 100 to 125 mg/dL indicate increased risk for diabetes (prediabetes). Fasting plasma glucose results greater than or equal to 126 mg/dL meet the criteria for diagnosis of diabetes. In the absence of unequivocal hyperglycemia, results should be confirmed by repeat testing. In a patient with classic symptoms of hyperglycemia or hyperglycemic crisis, random plasma glucose results greater than or equal to 200 mg/dL meet the criteria for diagnosis of diabetes. Reference: Standards of Medical Care in Diabetes 2016; [place] [employer] Association. Diabetes Care. 2016;39(Suppl 1). Performed By: #### B MP #### [facility] [address] [place], [place] [address] Potassium [Moles/Vol] 4.2 mmol/L Normal 3.7-5.1 [facility] Comment on above: Performed By: #### B MP #### [facility] [address] [place], [place] [address] Sodium [Moles/Vol] 139 mmol/L Normal 136-144 [facility] Comment on above: Performed By: #### B MP #### [facility] [address] [place], [place] [address] Urea nitrogen [Mass/Vol] 17 mg/dL Normal 7-21 [facility] Comment on above: Performed By: #### B MP #### [facility] [address] [place], [place] [address] Hemogramon 04-20-2020 Erythrocyte distribution width (RBC) [Ratio] 13.3 % Normal 11.7-14.4 [facility] Comment on above: Performed By: #### C BC1 #### [facility] [address] [place], [place] [address] Hematocrit (Bld) [Volume fraction] 38.4 % Normal 34.1-44.9 [facility] Comment on above: Performed By: #### C BC1 #### [facility] [address] [place], [place] [address] Hemoglobin (Bld) [Mass/Vol] 12.2 g/dL Normal 11.2-15.7 [facility] Comment on above: Performed By: #### C BC1 #### [facility] [address] [place], [place] [address] MCH (RBC) [Entitic mass] 28.7 pg Normal 25.6-32.2 [facility] Comment on above: Performed By: #### C BC1 #### [facility] [address] [place] [address] MCHC (RBC) [Mass/Vol] 31.8 % Normal 31.6-34.8 [facility] Comment on above: Performed By: #### C BC1 #### [facility] [address] [place], [place] [address] MCV (RBC) [Entitic vol] 90.4 fL Normal 79.4-94.8 [facility] Comment on above: Performed By: #### C BC1 #### [facility] [address] [place] [address] Platelet mean volume (Bld) [Entitic vol] 10.8 fL Normal 9.4-12.3 [facility] Comment on above: Performed By: #### C BC1 #### [facility] [address] [place], [place] [address] Platelets (Bld) [#/Vol] 304 thou/cmm Normal 182-369 [facility] Comment on above: Performed By: #### C BC1 #### [facility] [address] [place], [place] [address] RBC (Bld) [#/Vol] 4.25 mil/cmm Normal 3.93-5.22 [facility] Comment on above: Performed By: #### C BC1 #### [facility] [address] [place], [place] [address] RDW SD 44.2 fl Normal 36.4-46.3 [facility] Comment on above: Performed By: #### C BC1 #### [facility] [address] [place], [place] [address] WBC (Bld) [#/Vol] 7.74 thou/cmm Normal 3.98-10.04 [facility] Comment on above: Performed By: #### C BC1 #### [facility] [address] [place], [place] [address] MDRD GFRon 04-20-2020 GFR/1.73 sq M predicted among non-blacks MDRD (S/P/Bld) [Vol rate/Area] 56.62 mL/min/{1.73_m2} Normal >60mL/min/1.73 m2 [facility] Comment on above: Result Comment: If t he patient is , multiply the result by 1.210. Performed By: #### G FR #### [address] [address] US PELVIS LTDon 04-20-2020 US PELVIS LTD Final Report DATE OF EXAM: Apr 20 2020 4:18PM U 1043 - US PELVIS LTD / PROCEDURE REASON: k40.90 Physician Interpretation EXAM TITLE: US PELVIS LTD DATE: 04/21/2020 8:05 AM INDICATION: Right groin pain for 2 weeks COMPARISON: None. FINDINGS: Grayscale and color-flow Doppler sonography was performed at the right groin area corresponding the site of patient concern. In this location, no solid or cystic lesions are noted. There is no abnormal fluid or mass otherwise. IMPRESSION: No sonographic abnormality is identified at the site of reported patient pain. Riprap Man: PSCB Transcribe Date/Time: Apr 21 2020 8:05A Dictated by : LIAM MURRAY MD This examination was interpreted and the report reviewed and electronically signed by: LIAM MURRAY MD on Apr 21 2020 8:06AM EST Normal [facility] Vital Signs Date Time Vital Sign Value Performing Clinician Facility 07-25-2024 10:51-0400 Body height 167.6 cm Jad Wilkinson PA-C Work Phone: [facility] 07-25-2024 10:51-0400 Body mass index (BMI) [Ratio] 26.63 kg/m2 Jad Wilkinson PA-C Work Phone: [facility] 07-25-2024 10:51-0400 Body weight 74.84 kg Jad Wilkinson PA-C Work Phone: [facility] 07-25-2024 10:51-0400 Diastolic blood pressure 76 mm[Hg] Jad Wilkinson PA-C Work Phone: [facility] 07-25-2024 10:51-0400 Heart rate 93 /min Jad Wilkinson PA-C Work Phone: [facility] 07-25-2024 10:51-0400 Respiratory rate 16 /min Jad Wilkinson PA-C Work Phone: [facility] 07-25-2024 10:51-0400 Systolic blood pressure 143 mm[Hg] Jad Wilkinson PA-C Work Phone: [facility] 07-24-2024 10:28-0400 Diastolic blood pressure 69 mm[Hg] Shelley Ramirez DO Work Phone: [facility] 07-24-2024 10:28-0400 Heart rate 86 /min Shelley Ramirez DO Work Phone: [facility] 07-24-2024 10:28-0400 Systolic blood pressure 132 mm[Hg] Shelley Ramirez DO Work Phone: [facility] 09-26-2023 11:26-0500 Body temperature 98.29 [degF] Yordy Bonds MD Work Phone: [facility] 09-26-2023 11:26-0500 Diastolic blood pressure 80 mm[Hg] Yordy Bonds MD Work Phone: [facility] 09-26-2023 11:26-0500 Heart rate 71 /min Yordy Bonds MD Work Phone: [facility] 09-26-2023 11:26-0500 Respiratory rate 16 /min Yordy Bonds MD Work Phone: [facility] 09-26-2023 11:26-0500 SaO2% (BldA) [Mass fraction] 94 % Yordy Bonds MD Work Phone: [facility] 09-26-2023 11:26-0500 Systolic blood pressure 151 mm[Hg] Yordy Bonds MD Work Phone: [facility] 09-26-2023 00:00-0500 Body height 167.6 cm Yordy Bonds MD Work Phone: [facility] 09-26-2023 00:00-0500 Body mass index (BMI) [Ratio] 25.9 kg/m2 Yordy Bonds MD Work Phone: [facility] 09-26-2023 00:00-0500 Body weight 72.8 kg Yordy Bonds MD Work Phone: [facility] Encounters Encounter Date Encounter Type Care Provider Facility Start: 07-25-2024 End: 07-25-2024 Subsequent hospital visit by physician Jimmy X-Ray Fluoro [facility] Comment on above: Cervical neuritis; Chronic left shoulder pain Start: 07-25-2024 End: 07-25-2024 ambulatory JAD [facility] Start: 07-25-2024 End: 07-25-2024 Office outpatient new 30 minutes Jad Wilkinson PA-C Work Phone: [facility] Comment on above: Cervical neuritis (P rimary Dx); Chronic left shoulder pain Start: 07-25-2024 End: 07-25-2024 ambulatory JAD [facility] Start: 07-24-2024 End: 07-24-2024 Erroneous Encounter Shelley Ramirez DO Work Phone: [facility] Comment on above: Procedure and treatm ent not carried out due to patient leaving prior to being seen by health care provider (Primary Dx) Start: 07-24-2024 End: 07-24-2024 ambulatory SHELLEY RAMIREZ [facility] Start: 05-09-2024 End: 05-09-2024 ambulatory [facility] Start: 04-25-2024 End: 04-25-2024 ambulatory [facility] Start: 03-27-2024 End: 03-27-2024 ambulatory [facility] Start: 09-26-2023 End: 09-26-2023 ambulatory SABINA ROJAS [facility] Start: 09-26-2023 End: 09-26-2023 Subsequent hospital visit by physician [facility] Start: 09-25-2023 End: 09-26-2023 Emergency department patient visit JULIA JAIME [facility] Start: 01-11-2018 Ambulatory Yumiko Sanchez [facility] Procedures Date Procedure Procedure Detail Performing Clinician Start: 09-26-2023 Electrocardiogram Yordy Bonds MD Work Phone: Start: 09-26-2023 Assay of troponin quantitative Yordy Bonds MD Work Phone: Start: 09-26-2023 Ct angiography chest w/contrast/noncontrast Roger Argeuta MD Work Phone: Start: 09-26-2023 Assay of troponin quantitative Yordy Bonds MD Work Phone: Start: 09-26-2023 End: 09-26-2023 Basic metabolic panel calcium total Roger Argueta MD Work Phone: Start: 09-26-2023 Lipid panel Roger Argueta MD Work Phone: Start: 09-26-2023 Influenza virus A an d B RNA and SARS-CoV-2 (COVID-19) N gene panel - Respiratory specimen by GODFREY with probe detection Roger Argueta MD Work Phone: Plan of Treatment Date Care Activity Detail Author Start: 09-18-2024 End: 09-18-2024 Patient encounter procedure 09/18/2024 2:30 PM EST Office Visit [facility] [address] [place] [phone] Jad Wilkinson PA-C [address] [place] [address] [address] [place] [phone] [facility] Start: 07-25-2024 End: 07-25-2025 XR Cervical spine 2 or 3 Views [facility] Service Area Work Phone: Comment on above: Expected: 07/25/2024 (Approximate), Expires: 07/25/2025 Once for 1 Occurrenc es starting 07/25/2024 until 07/25/2024 Start: 07-25-2024 End: 07-25-2025 XR Shoulder - left 2 Views [facility] Work Phone: Comment on above: Expected: 07/25/2024 , Expires: 07/25/2025 Once for 1 Occurrenc es starting 07/25/2024 until 07/25/2024 Start: 07-25-2024 End: 07-25-2024 Patient encounter procedure 07/25/2024 11:30 AM EDT Office Visit [facility] [address] [place] [phone] Jad Wilkinson PA-C [address] [place] [address] Dr [place] [phone] [facility] Start: 06-16-2024 COVID-19 Vaccine ( season) COVID-19 Vaccine ( season) [facility] Start: 01-21-2017 Pneumococcal Vaccine : 65+ Years (2 of 2 - PCV) Pneumococcal Vaccine: 65+ Years (2 of 2 - PCV) [facility] Start: 2005 RSV patient s and/or patients aged 60+ years (1 - 1-dose 60+ series) RSV patients and/or patients aged 60+ years (1 - 1-dose 60+ series) [facility] Start: 1995 Zoster Vaccines (1 o f 2) Zoster Vaccines (1 of 2) [facility] Start: 1967 DTaP/Tdap/Td Vaccine s (1 - Tdap) DTaP/Tdap/Td Vaccines (1 - Tdap) [facility] Start: 1963 Hepatitis C screening Hepatitis C Sc reening [facility] Start: 1945 Lipid panel Lipid Panel [facility] Start: 1945 Medicare Annual Wellness Visit Medicare Annual Wellness Visit (AWV) [facility] Start: 1945 Screening for osteoporosis Bone Density Scan [facility] Payers Date Payer Category Payer Medicare [id number] 2020 Medicare [id number] 1945 Unknown [id number] [id number] 1945 Unknown [id number] [id number] 1945 Unknown [id number] 1945 Unknown [id number] 2.16.8 [id number] 1945 Unknown [id number] 1945 Unknown [id number] 1945 Unknown [id number] [id number] 1945 Unknown [id number] [id number] 1945 Unknown [id number] Unknown Social History Date Type Detail Facility Start: 09-25-2023 Tobacco smoking stat [facility] Never smoked tobacco [facility] Start: 09-25-2023 Tobacco use and exposure Smokeless tobacco non-user [facility] Start: 09-26-2023 Alcohol intake Current drinke r of alcohol (finding) [facility] Start: 09-26-2023 End: 07-24-2024 History of Social function [facility] Start: 09-26-2023 End: 07-24-2024 Tobacco use panel [facility] Start: 1945 Sex Assigned At Not on file [facility] Start: 07-24-2024 End: 07-25-2024 Tobacco smoking status NHIS Ex-smoker [facility] Work Phone: History of tobacco use Current smoker [facility] Work Phone: History of tobacco use Cigarette Smoker [facility] Work Phone: Start: 07-24-2024 End: 07-25-2024 Alcoholic beverage intake Ex-drinker (finding) [facility] Work Phone: Start: 07-14-2024 End: 07-24-2024 Exposure to SARS-CoV-2 (event) Not sure [facility] Clinical Notes 09-26-2023 to 07-25-2024 Jad Wilkinson PA-C - 07/25/2024 11:30 AM Sarai Ramirez DO - 07/24/2024 10:30 AM Briseida Mcnally - Sarah Duran RN - 09/26/2023 12:40 PM Yordy López MD - 09/26/2023 10:54 AM EST Note Date & Type Note Facility 07-25-2024 History of Present illness Narrative Subjective Patient ID: Dahlia Bajwa is a 79 y.o. female who presents for Pain (NEW PATIENT, ONGOING LEFT SHOULDER PAIN FOR OVER 6 MONTHS, SHE HAD LEFT SHOULDER INJECTION WITH PAIN MANAGEMENT IN JANUARY AND HER LEFT SHOULDER PAIN WENT AWAY UNTIL THE PAST 4 WEEKS, SHE DESCRIBES TO BE RADIATING PAIN INTO THE LEFT ARM TO HER HAND AND SOMETIMES INTO HER NECK AND SHOULDER, SHE HAS DAYS OF NO PAIN, ). PAIN WITH LIFTING HEAVY ITEMS, IMAGING DONE IN [place] AT PAIN MANAGEMENT DR. JORDAN, NO PHYSICAL THERAPY FOR SHOULDER, NO HOME STRETCHING, LIDOCAINE OTC PATCHES PRN, TYLENOL FOR PAIN, PAIN SCORE 7/10, DEP NO, FALLS NO, SMOKING NO, TATIANA=34%, SOAPP=3 Nicol Nuñez RN 07/25/24 10:50 AM Patient is a 79-year-old female. She presents today with her . She has complaints of left shoulder pain. Patient previously saw Dr. Jordan a pain management doctor in [place]. She states that they moved so she is no longer going there. She had an injection in January. It worked until June. Nothing really makes it worse other than sometimes lifting but she denies issues with overhead activity. She denies issue with internal or external rotation of her shoulder. She denies issue brushing her hair or putting on her bra. Nothing really makes it better either. It just kind of comes and goes. Patient states that she was advised by a previous doctor that she had a pinched nerve in her neck but then states that the shoulder injection helped. She currently rates the discomfort a 7/10. She has not yet pursued any physical therapy or home exercises for this. She has lidocaine patches and Tylenol. Unfortunately does not give her any significant relief. She is not able to use NSAIDs due to anti-inflammatory use. She was hopeful to get an injection today but she really wants to just work on getting her left shoulder pain better. This affects her quality of life. This affects her activities affects her ability and affects her ability to do things she wants to do. Review of Systems Constitutional: Negative. HENT: Negative. Eyes: Negative. Respiratory: Negative. Cardiovascular: Negative. Gastrointestinal: Negative. Endocrine: Negative. Genitourinary: Negative. Musculoskeletal: Positive for arthralgias and myalgias. Skin: Negative. Allergic/Immunologic: Negative. Neurological: Positive for weakness and numbness. Hematological: Negative. Psychiatric/Behavioral: Negative. Objective Physical Exam Vitals and nursing note reviewed. Constitutional: General: She is not in acute distress. Appearance: Normal appearance. She is not ill-appearing. HENT: Head: Normocephalic and atraumatic. Right Ear: External ear normal. Left Ear: External ear normal. Nose: Nose normal. Mouth/Throat: Pharynx: Oropharynx is clear. Eyes: Conjunctiva/sclera: Conjunctivae normal. Cardiovascular: Rate and Rhythm: Normal rate and regular rhythm. Pulses: Normal pulses. Pulmonary: Effort: Pulmonary effort is normal. Breath sounds: Normal breath sounds. Musculoskeletal: General: Normal range of motion. Cervical back: Normal range of motion. Comments: 5/5 strength No significant pain with internal or external rotation of the shoulder Skin: General: Skin is warm and dry. Neurological: General: No focal deficit present. Mental Status: She is alert and oriented to person, place, and time. Mental status is at baseline. Psychiatric: Mood and Affect: Mood normal. Behavior: Behavior normal. Thought Content: Thought content normal. Judgment: Judgment normal. Assessment/Plan Diagnoses and all orders for this visit: Cervical neuritis - pregabalin (Lyrica) 25 mg capsule; Take 1 capsule (25 mg) by mouth 2 times a day. - XR cervical spine 2-3 views; Future - XR shoulder left 2+ views; Future Chronic left shoulder pain - pregabalin (Lyrica) 25 mg capsule; Take 1 capsule (25 mg) by mouth 2 times a day. - XR cervical spine 2-3 views; Future - XR shoulder left 2+ views; Future Patient is a 79-year-old female with a past medical history significant for the above-mentioned medical diagnoses in January by a different pain management doctor. I would like to get these records. We will work on obtaining them. She also states that she had x-rays done over a year ago for this pain. Fpresenting today as a new patient with complaints of left shoulder pain. She has had this for a few years. She had a shoulder injection done I would like to obtain those records. At this time, I would also like to obtain updated cervical x-rays as well as left shoulder x-rays to further formulate a plan of care. We discussed the possibility of future left shoulder injection which would be a repeat injection but she states that she was advised years ago she had a pinched nerve in her neck. I would like to obtain updated x-rays and I would like patient to start a physical therapy home exercise program. She will follow-up after the records have been obtained. We will in the meantime start Lyrica 25 mg twice daily. OARRS reviewed. Prescription sent. Follow-up after records have been obtained. documented in this encounter [facility] Work Phone: 07-24-2024 History of Present illness Narrative Subjective Patient ID: Dahlia Bajwa is a 79 y.o. female who presents for Pain (NEW PATIENT, ONGOING LEFT SHOULDER PAIN FOR OVER 6 MONTHS, SHE HAD LEFT SHOULDER INJECTION WITH PAIN MANAGEMENT IN JANUARY AND HER LEFT SHOULDER PAIN WENT AWAY UNTIL THE PAST 4 WEEKS, SHE DESCRIBES TO BE RADIATING PAIN INTO THE LEFT ARM TO HER HAND AND SOMETIMES INTO HER NECK AND SHOULDER, SHE HAS DAYS OF NO PAIN, ). PAIN WITH LIFTING HEAVY ITEMS, IMAGING DONE IN [place] AT PAIN MANAGEMENT DR. JORDAN, NO PHYSICAL THERAPY FOR SHOULDER, NO HOME STRETCHING, LIDOCAINE OTC PATCHES PRN, TYLENOL FOR PAIN, PAIN SCORE 7/10, DEP NO, FALLS NO, SMOKING NO, TATIANA=34%, SOAPP=3 HPI Review of Systems Objective Physical Exam Assessment/Plan Phoebe Gibbons CMA 07/24/24 10:29 AM documented in this encounter [facility] Work Phone: 09-26-2023 Miscellaneous Notes Discharged per wheelchair to lobby to go home with per private car. Discharge instructions reviewed with patient and , voices understanding. IV discontinued and after finishing lunch , will get dressed to go home. Problem: Actual or potential alteration in health Goal: Absence of healthcare acquired conditions Outcome: Partially Met Goal: Knowledge of Interdisciplinary Plan of Care Outcome: Partially Met Goal: Knowledge of Enviroment Outcome: Partially Met Problem: Pressure Ulcer - Risk of Goal: Absence of pressure ulcer Outcome: Partially Met Problem: Pain Goal: Manage acute pain Outcome: Partially Met Note: Patient denies pain at this time Goal: Manage chronic pain Outcome: Partially Met Goal: Reduced pain sensation Outcome: Partially Met Goal: Achievement of comfort function goal Outcome: Partially Met Problem: Cardiac Output - Decreased Goal: Cardiac output within specified parameters Outcome: Partially Met Received return call from Dr. Argueta. Notified him of patient arrival Multiple attempts made to contact admitting physician, no answer Patient arrived to unit, ambulated to restroom and bed without difficulty. documented in this encounter [facility] 09-26-2023 Note Formatting of this n ote might be different from the original. Discharged per wheelchair to lobby to go home with per private car. [facility] 09-26-2023 Note Formatting of this n ote might be different from the original. Discharge instructions reviewed with patient and , voices understanding. IV discontinued and after finishing lunch , will get dressed to go home. [facility] 09-26-2023 Hospital course Narrative [facility] -- [facility] Dahlia Bajwa Admitted: 09/26/2023 Discharge Date: 09/26/23 PCP Handoff Recommended Outpatient Testing Follow-up with strategy planning consultant as outpatient Results Pending At Discharge Clinical Summary Dahlia Bajwa is a 78 y.o. female patient of Julia Lofton MD with history of CAD, HTN, HLD, who presented to [facility] with left lower chest pain. Chest pain: CAD s/p PCI x 3 stents: HTN: HLD: CXR non-acute EKG non-acute Troponin < 0.05, < 0.05; complete trend CTA pulmonary arteries and abdomen/pelvis w/ contrast Lipase LFTs Pain control ASA, Plavix, statin, Toprol, Norvasc, nitropaste Evaluated by cardiology, patient chest pain seems to be atypical. Echocardiogram discontinued per cardiology recommendation. Patient to follow-up with her strategy planning consultant as outpatient. Discharge Medications Discharge Medications Medications To Continue Details amLODIPine 10 MG tablet Commonly known as: NORVASC Take 1 (one) tablet (10 mg total) by mouth daily . aspirin 81 mg chewable tablet Chew and Swallow 1 (one) tablet (81 mg total) daily . atorvastatin 10 MG tablet Commonly known as: LIPITOR Take 1 (one) tablet (10 mg total) by mouth daily . clopidogreL 75 mg tablet Commonly known as: PLAVIX Take 1 (one) tablet (75 mg total) by mouth daily . METOPROLOL SUCCINATE ORAL Take 50 mg by mouth daily . nitroGLYCERIN 0.4 mg/hr Commonly known as: NITRODUR Place 1 (one) patch on the skin daily Patient states she's taking pills, not patches . Physician(s) Follow Up: Julia Lofton MD [id number] [facility] [phone] Schedule an appointment as soon as possible for a visit in 1 week(s) Condition at Discharge: Stable Disposition: Home I reviewed discharge recommendations with the patient in person. Patient instructions, including activity, were given to the patient/family at discharge. On day of discharge I saw Dahlia Garett and spent: > 30 minutes on discharge. Completed by: Yordy Bonds on 09/26/23, 10:54 AM documented in this encounter [facility] 09-26-2023 Consult note Associated Order (s): IP CONSULT TO CARDIOLOGY General Cardiology Consult [facility] 09/26/2023 Sabina Kay MD [facility] Maral Nuñez [facility] [phone] Inpatient Cardiovascular Consultation Date of Service: 09/26/2023 Patient: Abdifatah Date of : 1945 Referring Provider: Refer to consult order in electronic medical record PCP: Julia Lofton MD Primary Golf Ball Inspector: [place] [facility] Assessment/Plan: Abdifatah is a 78 y.o. female with a past medical history of coronary artery disease status post stenting to an LAD and circumflex she had an EF of 30 to 35% in December 2019 with improvement to 40 based on an echo October 2020 presenting with complaints of chest pain Atypical chest pain Negative enzymes EKG c/w known CAD Follows with cardiology at [place] on appropriate GDMT Known mild systolic dysfunction, prior 30-35% improved to 40-49% Intolerant of jardiance due to UTI No additional inpatient cardiac assessment needed at this time Clinically euvolemic Can follow up with outpatient strategy planning consultant if outpatient stress warranted Will sign off please call with questions The following Vizient risk variables were noted and present on admission: No Vizient risk variables were present on admission Please see assessment and plan for further details. Subjective Reason for Consultation: Chest pain History of Present Illness: Patient is a 78-year-old with a history of coronary artery disease status post stenting to an LAD and circumflex she had an EF of 30 to 35% in December 2019 with improvement to 40 based on an echo October 2020 She was seen by her strategy planning consultant 08/11/2023 Home medications to include aspirin 81 mg daily atorvastatin 40, furosemide 40 mg once a week amlodipine 5 mg daily metoprolol succinate 50 mg daily, clopidogrel 75 mg daily Previously on jardiance but intolerant due to UTIs She notes pain under the left breast worse with moving or a deep breath. Pain started yesterday morning. Not currently having pain. She is active without issues. She just had a big [employer] democrat for her family. Imaging: I independently reviewed the EKG and Echo and agree with the interpretation(s) with the following comments. EKG with decreased anterior R wave progression in the precordial leads Past Medical History: Diagnosis Date Coronary artery disease Hyperlipidemia Hypertension Myocardial infarction (HCC) TIA (transient ischemic attack) Past Surgical History: Procedure Laterality Date CARDIAC CATHETERIZATION CHOLECYSTECTOMY HYSTERECTOMY (CERVIX REMAINS) STENT PLACEMENT Shefamily history is not on file. She reports that she has never smoked. She has never used smokeless tobacco. She reports current alcohol use. She reports that she does not use drugs. Allergies: Allergies: Sulfa (sulfonamide antibiotics) Scheduled Meds: amLODIPine 10 mg Oral Daily aspirin 81 mg Oral Daily atorvastatin 10 mg Oral Daily clopidogreL 75 mg Oral Daily enoxaparin (LOVENOX) injection 40 mg Subcutaneous Daily metoprolol succinate 50 mg Oral Daily nitroGLYCERIN 1 inch Topical TID senna-docusate 1 tablet Oral BID Continuous Infusions: PRN Meds:.acetaminophen, aluminum-magnesium hydroxide-simethicone, atropine, bisacodyL, magnesium hydroxide, melatonin, morphine, morphine injection, nalOXone AND Notify physician AND naloxone, nitroGLYCERIN, ondansetron OR ondansetron, perflutren lipid microspheres, senna, traZODone Objective: Physical Examination: Blood pressure (!) 148/76, pulse 70, temperature 97.4 F (36.3 C), temperature source Oral, resp. rate 16, height 5' 6 , weight 72.8 kg (160 lb 7.9 oz), SpO2 94 %. Physical Exam Constitutional: Appearance: She is well-developed. HENT: Head: Normocephalic and atraumatic. Eyes: Pupils: Pupils are equal, round, and reactive to light. Neck: Vascular: No JVD. Cardiovascular: Rate and Rhythm: Normal rate and regular rhythm. Pulses: Radial pulses are 2+ on the right side and 2+ on the left side. Heart sounds: Normal heart sounds. No murmur heard. No friction rub. No gallop. Pulmonary: Effort: Pulmonary effort is normal. Breath sounds: Normal breath sounds. No wheezing or rales. Skin: General: Skin is warm and dry. Neurological: Mental Status: She is alert and oriented to person, place, and time. Laboratory and Additional Data Reviewed: Laboratory 09/26/23 10:33 AM Lab Results Component Value Date NA 141 09/26/2023 K 3.6 09/26/2023 CL 110 (H) 09/26/2023 BUN 15 09/26/2023 BUN 19 09/25/2023 CREATININE 0.76 09/26/2023 GLUCOSE 98 09/26/2023 CALCIUM 8.8 09/26/2023 Lab Results Component Value Date TROPONINI 11 09/26/2023 TROPONINI 11 09/26/2023 Lab Results Component Value Date WBC 7.52 09/26/2023 HGB 12.0 09/26/2023 HCT 36.8 09/26/2023 MCV 89.1 09/26/2023 PLT 217 09/26/2023 Lab Results Component Value Date CHOL 177 09/26/2023 TRIG 74 09/26/2023 HDL 79 09/26/2023 Lab Results Component Value Date DDIMER 0.48 09/26/2023 Lab Results Component Value Date TSH 2.26 09/26/2023 [facility] Work Phone: 09-26-2023 Consult note Associated Order (s): IP CONSULT TO CARDIOLOGY General Cardiology Consult [facility] 09/26/2023 Sabina Kay MD [address] [phone] Inpatient Cardiovascular Consultation Date of Service: 09/26/2023 Patient: Abdifatah Date of : 1945 Referring Provider: Refer to consult order in electronic medical record PCP: Julia Lofton MD Primary Golf Ball Inspector: [place] [facility] Assessment/Plan: Abdifatah is a 78 y.o. female with a past medical history of coronary artery disease status post stenting to an LAD and circumflex she had an EF of 30 to 35% in December 2019 with improvement to 40 based on an echo October 2020 presenting with complaints of chest pain Atypical chest pain Negative enzymes EKG c/w known CAD Follows with cardiology at [place] on appropriate GDMT Known mild systolic dysfunction, prior 30-35% improved to 40-49% Intolerant of jardiance due to UTI No additional inpatient cardiac assessment needed at this time Clinically euvolemic Can follow up with outpatient strategy planning consultant if outpatient stress warranted Will sign off please call with questions The following Vizient risk variables were noted and present on admission: No Vizient risk variables were present on admission Please see assessment and plan for further details. Subjective Reason for Consultation: Chest pain History of Present Illness: Patient is a 78-year-old with a history of coronary artery disease status post stenting to an LAD and circumflex she had an EF of 30 to 35% in December 2019 with improvement to 40 based on an echo October 2020 She was seen by her strategy planning consultant 08/11/2023 Home medications to include aspirin 81 mg daily atorvastatin 40, furosemide 40 mg once a week amlodipine 5 mg daily metoprolol succinate 50 mg daily, clopidogrel 75 mg daily Previously on jardiance but intolerant due to UTIs She notes pain under the left breast worse with moving or a deep breath. Pain started yesterday morning. Not currently having pain. She is active without issues. She just had a big [employer] democrat for her family. Imaging: I independently reviewed the EKG and Echo and agree with the interpretation(s) with the following comments. EKG with decreased anterior R wave progression in the precordial leads Past Medical History: Diagnosis Date Coronary artery disease Hyperlipidemia Hypertension Myocardial infarction (HCC) TIA (transient ischemic attack) Past Surgical History: Procedure Laterality Date CARDIAC CATHETERIZATION CHOLECYSTECTOMY HYSTERECTOMY (CERVIX REMAINS) STENT PLACEMENT Shefamily history is not on file. She reports that she has never smoked. She has never used smokeless tobacco. She reports current alcohol use. She reports that she does not use drugs. Allergies: Allergies: Sulfa (sulfonamide antibiotics) Scheduled Meds: amLODIPine 10 mg Oral Daily aspirin 81 mg Oral Daily atorvastatin 10 mg Oral Daily clopidogreL 75 mg Oral Daily enoxaparin (LOVENOX) injection 40 mg Subcutaneous Daily metoprolol succinate 50 mg Oral Daily nitroGLYCERIN 1 inch Topical TID senna-docusate 1 tablet Oral BID Continuous Infusions: PRN Meds:.acetaminophen, aluminum-magnesium hydroxide-simethicone, atropine, bisacodyL, magnesium hydroxide, melatonin, morphine, morphine injection, nalOXone AND Notify physician AND naloxone, nitroGLYCERIN, ondansetron OR ondansetron, perflutren lipid microspheres, senna, traZODone Objective: Physical Examination: Blood pressure (!) 148/76, pulse 70, temperature 97.4 F (36.3 C), temperature source Oral, resp. rate 16, height 5' 6 , weight 72.8 kg (160 lb 7.9 oz), SpO2 94 %. Physical Exam Constitutional: Appearance: She is well-developed. HENT: Head: Normocephalic and atraumatic. Eyes: Pupils: Pupils are equal, round, and reactive to light. Neck: Vascular: No JVD. Cardiovascular: Rate and Rhythm: Normal rate and regular rhythm. Pulses: Radial pulses are 2+ on the right side and 2+ on the left side. Heart sounds: Normal heart sounds. No murmur heard. No friction rub. No gallop. Pulmonary: Effort: Pulmonary effort is normal. Breath sounds: Normal breath sounds. No wheezing or rales. Skin: General: Skin is warm and dry. Neurological: Mental Status: She is alert and oriented to person, place, and time. Laboratory and Additional Data Reviewed: Laboratory 09/26/23 10:33 AM Lab Results Component Value Date NA 141 09/26/2023 K 3.6 09/26/2023 CL 110 (H) 09/26/2023 BUN 15 09/26/2023 BUN 19 09/25/2023 CREATININE 0.76 09/26/2023 GLUCOSE 98 09/26/2023 CALCIUM 8.8 09/26/2023 Lab Results Component Value Date TROPONINI 11 09/26/2023 TROPONINI 11 09/26/2023 Lab Results Component Value Date WBC 7.52 09/26/2023 HGB 12.0 09/26/2023 HCT 36.8 09/26/2023 MCV 89.1 09/26/2023 PLT 217 09/26/2023 Lab Results Component Value Date CHOL 177 09/26/2023 TRIG 74 09/26/2023 HDL 79 09/26/2023 Lab Results Component Value Date DDIMER 0.48 09/26/2023 Lab Results Component Value Date TSH 2.26 09/26/2023 documented in this encounter [facility] 09-26-2023 History and physical note [facility]YSICAL -- [facility] Patient Name: Dahlia Bajwa : 1945 MR #: [id number] Admit Date: 09/26/2023 Physicians: Julia Lofton MD (Family); Roger Carrillo (Referring) Dahlia Bajwa is a 78 y.o. female patient of Julia Lofton MD with history of CAD, HTN, HLD, who presented to [facility] with left lower chest pain. Chest pain: CAD s/p PCI x 3 stents: HTN: HLD: CXR non-acute EKG non-acute Troponin < 0.05, < 0.05; complete trend CTA pulmonary arteries and abdomen/pelvis w/ contrast Lipase LFTs Pain control ASA, Plavix, statin, Toprol, Norvasc, nitropaste Echo Cardiology consult Residence prior to admission: house or apartment Was patient transferred from outlying hospital or ED yes -- care site [facility] Quality Measures DVT Prophylaxis: lovenox Brady Catheter: absent Medication Reconciliation: Verified Risk variables present on admission: None. Please see assessment and plan for further details. Estimated Date of Discharge less than 2 midnights Code Status Full Code; code status verified on 09/26/2023 with patient (capacity intact) Chief Complaint Chest pain History of Present Illness Dahlia Bajwa is a 78 y.o. female patient of Julia Lofton MD with history of CAD, HTN, HLD, who presented to [facility] with left lower chest pain. Left lower chest. Patient states, It's under my boob. Started yesterdady morning. Was 7/10 at worst. Cramping quality. No relief with ASA or nitroglycerin. Worse with deep breath. No fever, chills, cough. Past Medical History Past Medical History: Diagnosis Date Coronary artery disease Hyperlipidemia Hypertension Myocardial infarction (HCC) TIA (transient ischemic attack) Past Surgical History Past Surgical History: Procedure Laterality Date CARDIAC CATHETERIZATION CHOLECYSTECTOMY HYSTERECTOMY (CERVIX REMAINS) STENT PLACEMENT Family History History reviewed. No pertinent family history. Social History Social History Tobacco Use Smoking Status Never Smokeless Tobacco Never Social History Substance and Sexual Activity Alcohol Use Yes Social History Substance and Sexual Activity Drug Use Never Allergy Information I have reviewed the patient's allergies. Sulfa (sulfonamide antibiotics) Home Medications Home medications were reviewed. Review Of Systems All relevant systems have been reviewed and are negative except as noted in HPI or below Physical Examination BP (!) 161/80 Pulse 71 Temp 97.7 F (36.5 C) (Oral) Resp 16 Ht 5' 6 Wt 72.8 kg (160 lb 7.9 oz) SpO2 94% BMI 25.90 kg/m General Appearance: alert; well appearing; in no acute distress HEENT: Head- normocephalic; Eyes- EOMI, sclera anicteric; Throat- mucous membranes moist Cardiovascular: regular rate and rhythm; normal S1, S2; no murmurs, rubs, clicks or gallops; peripheral edema absent Respiratory: lungs clear to auscultation; without wheezes, rales or rhonchi; on room air Abdomen: soft, non-tender, non-distended Neurological: oriented x 3; normal speech; no focal findings or movement disorder noted Musculoskeletal: no significant deformity or tenderness to palpation Skin: normal coloration Psych: normal mood and affect [facility] 09-26-2023 History and physical note [facility] [place] [facility] Patient Name: Dahlia Bajwa : 1945 MR #: [id number] Admit Date: 09/26/2023 Physicians: Julia Lofton MD (Family); Roger Carrillo (Referring) Dahlia Bajwa is a 78 y.o. female patient of Julia Lofton MD with history of CAD, HTN, HLD, who presented to [facility] with left lower chest pain. Chest pain: CAD s/p PCI x 3 stents: HTN: HLD: CXR non-acute EKG non-acute Troponin < 0.05, < 0.05; complete trend CTA pulmonary arteries and abdomen/pelvis w/ contrast Lipase LFTs Pain control ASA, Plavix, statin, Toprol, Norvasc, nitropaste Echo Cardiology consult Residence prior to admission: house or apartment Was patient transferred from [facility] or ED yes -- care site [facility] FSED Quality Measures DVT Prophylaxis: lovenox Brady Catheter: absent Medication Reconciliation: Verified Risk variables present on admission: None. Please see assessment and plan for further details. Estimated Date of Discharge less than 2 midnights Code Status Full Code; code status verified on 09/26/2023 with patient (capacity intact) Chief Complaint Chest pain History of Present Illness Dahlia Bajwa is a 78 y.o. female patient of Julia Lofton MD with history of CAD, HTN, HLD, who presented to [facility] with left lower chest pain. Left lower chest. Patient states, It's under my boob. Started yesterdady morning. Was 7/10 at worst. Cramping quality. No relief with ASA or nitroglycerin. Worse with deep breath. No fever, chills, cough. Past Medical History Past Medical History: Diagnosis Date Coronary artery disease Hyperlipidemia Hypertension Myocardial infarction (HCC) TIA (transient ischemic attack) Past Surgical History Past Surgical History: Procedure Laterality Date CARDIAC CATHETERIZATION CHOLECYSTECTOMY HYSTERECTOMY (CERVIX REMAINS) STENT PLACEMENT Family History History reviewed. No pertinent family history. Social History Social History Tobacco Use Smoking Status Never Smokeless Tobacco Never Social History Substance and Sexual Activity Alcohol Use Yes Social History Substance and Sexual Activity Drug Use Never Allergy Information I have reviewed the patient's allergies. Sulfa (sulfonamide antibiotics) Home Medications Home medications were reviewed. Review Of Systems All relevant systems have been reviewed and are negative except as noted in HPI or below Physical Examination BP (!) 161/80 Pulse 71 Temp 97.7 F (36.5 C) (Oral) Resp 16 Ht 5' 6 Wt 72.8 kg (160 lb 7.9 oz) SpO2 94% BMI 25.90 kg/m General Appearance: alert; well appearing; in no acute distress HEENT: Head- normocephalic; Eyes- EOMI, sclera anicteric; Throat- mucous membranes moist Cardiovascular: regular rate and rhythm; normal S1, S2; no murmurs, rubs, clicks or gallops; peripheral edema absent Respiratory: lungs clear to auscultation; without wheezes, rales or rhonchi; on room air Abdomen: soft, non-tender, non-distended Neurological: oriented x 3; normal speech; no focal findings or movement disorder noted Musculoskeletal: no significant deformity or tenderness to palpation Skin: normal coloration Psych: normal mood and affect documented in this encounter [facility] 09-26-2023 Note Formatting of this n ote might be different from the original. Problem: Actual or potential alteration in health Goal: Absence of healthcare acquired conditions Outcome: Partially Met Goal: Knowledge of Interdisciplinary Plan of Care Outcome: Partially Met Goal: Knowledge of Enviroment Outcome: Partially Met Problem: Pressure Ulcer - Risk of Goal: Absence of pressure ulcer Outcome: Partially Met Problem: Pain Goal: Manage acute pain Outcome: Partially Met Note: Patient denies pain at this time Goal: Manage chronic pain Outcome: Partially Met Goal: Reduced pain sensation Outcome: Partially Met Goal: Achievement of comfort function goal Outcome: Partially Met Problem: Cardiac Output - Decreased Goal: Cardiac output within specified parameters Outcome: Partially Met [facility] 09-26-2023 Note Formatting of this n ote might be different from the original. Received return call from Dr. Argueta. Notified him of patient arrival [facility] 09-26-2023 Note Formatting of this n ote might be different from the original. Multiple attempts made to contact admitting physician, no answer [facility] 09-26-2023 Note Formatting of this n ote might be different from the original. Patient arrived to unit, ambulated to restroom and bed without difficulty. [facility] Evaluation note Diagnosis Chest pain- Primary Unspecified [facility] Procedure and treatment not carried out due to patient leaving prior to being seen by health care provider- Primary documented in this encounter [facility] Work Phone: Evaluation note* Diagnosis Cervical neuritis- Primary Brachial neuritis or radiculitis nos Chronic left shoulder pain Pain in joint, shoulder region documented in this encounter [facility] Work Phone: Evaluation note* Diagnosis Cervical neuritis Brachial neuritis or radiculitis nos Chronic left shoulder pain Pain in joint, shoulder region documented in this encounter [facility] Work Phone: Instructions* Attachments The following attachments cannot be sent through Care Everywhere. * Neck Stretches (Puerto Rican) * Shoulder Exercises With Weights ([place]ican) [facility] Purpose Family History No Family History Records FoundNo Family History Records FoundNo Family History Records FoundNo Family History Records FoundNo Family History Records Found Advance Directives No Advanced Directives Records FoundLatest Code Status on File Code Status Date Activated Date Inactivated Comments Full Code 09/26/2023 1:05 AM 09/26/2023 2:50 PM Reason for Referral Specialty Diagnoses / Procedures Referred By Contac t Referred To Contact Radiology Diagnoses Cervical neuritis Chronic left shoulder pain Procedures XR shoulder left 2+ views Jad Wilkinson PA-C [address] [place] [address] Referral ID Status Reason Start Date Expiration Date Visits Requested Visits Authorized [id number] Authorized Perform Procedure 4 07/25/2025 1 1 Specialty Diagnoses / Procedures Referred By Contac t Referred To Contact Radiology Diagnoses Cervical neuritis Chronic left shoulder pain Procedures XR cervical spine 2-3 views Jad Wilkinson PA-C [address] [place] [address] Referral ID Status Reason Start Date Expiration Date Visits Requested Visits Authorized [id number] Authorized Perform Procedure 4 07/25/2025 1 1 Additional Source Comments INFORMATION SOURCE (unrecogn ized section and content) DATE CREATED AUTHOR 04/05/2018 [facility] DATE CREATED AUTHOR AUTHOR'S ORGANIZ ATION 05/07/2020 [facility] DATE CREATED AUTHOR AUTHOR'S ORGANIZ ATION 10/04/2023 [facility] DATE CREATED AUTHOR AUTHOR'S ORGANIZ ATION 10/06/2023 [facility] DATE CREATED AUTHOR AUTHOR'S ORGANIZ ATION 07/31/2024 [facility] Reason for Visit (unrecogniz ed section and content) Specialty Diagnoses / Procedures Referred By Dorian morales Referred To Contact Diagnoses Chest pain Chest pain Referral ID Status Reason Start Date Expiration Date Visits Re quested Visits Authorized [id number] 1 1 Reason Comments Pain NEW PATIENT, ONGOING LEFT SHOULDER PAIN FOR OVER 6 MONTHS, SHE HAD LEFT SHOULDER INJECTION WITH PAIN MANAGEMENT IN JANUARY AND HER LEFT SHOULDER PAIN WENT AWAY UNTIL THE PAST 4 WEEKS, SHE DESCRIBES TO BE RADIATING PAIN INTO THE LEFT ARM TO HER HAND AND SOMETIMES INTO HER NECK AND SHOULDER, SHE HAS DAYS OF NO PAIN, Error (VOID this visit) Patient left evangelina or to being seen Specialty Diagnoses / Procedures Referred By Dorian morales Referred To Contact Radiology Diagnoses Cervical neuritis Chronic left shoulder pain Procedures XR cervical spine 2-3 views Jad Wilkinson PA-C [address] [place] [address] Referral ID Status Reason Start Date Expiration Date Visits Requested Visits Authorized [id number] Authorized Perform Procedure 4 07/25/2025 1 1 Specialty Diagnoses / Procedures Referred By Dorian morales Referred To Contact Radiology Diagnoses Cervical neuritis Chronic left shoulder pain Procedures XR shoulder left 2+ views Jad Wilkinson PA-C [address] [place] [address] Referral ID Status Reason Start Date Expiration Date Visits Requested Visits Authorized [id number] Authorized Perform Procedure 4 07/25/2025 1 1 Scheduled Active and Recently Administ ered Medications (unrecognized section and content) Medication Order 09/24/2023 09/25/2023 09/26/2023 amLODIPine (NORVASC) tablet 10 mg 10 mg, Oral, Daily, First dose on Mon09/26/23 at 0900 0824 (Given - Provid er: Sarah Duran, GREGORY) aspirin chewable tablet 81 mg 81 mg, Oral, Daily, First dose on Mon09/26/23 at 0900 0825 (Given - Provid er: Sarah Duran, RN) atorvastatin (LIPITOR) tablet 10 mg 10 mg, Oral, Daily, First dose on Mon09/26/23 at 0900 0825 (Given - Provid er: Sarah Duran RN) clopidogreL (PLAVIX) tablet 75 mg 75 mg, Oral, Daily, First dose on Mon09/26/23 at 0900 0825 (Given - Provid er: Sarah Duran RN) enoxaparin (LOVENOX) syringe 40 mg 40 mg, Subcutaneous, Daily, First dose on Mon09/26/23 at 0900, Administer in abdomen unless otherwise directed by prescriber. Notify physician if patient refuses., Indication: VTE Prophylaxis 08 (Given - Provid er: Sarah Duran RN) metoprolol succinate (TOPROL-XL) 24 hr tablet 50 mg 50 mg, Oral, Daily, First dose on Mon09/26/23 at 0900, DO NOT CRUSH OR CHEW. 0826 (Given - Provid er: Sarah Duran RN) nitroGLYCERIN (NITRO-BID) 2 % ointment 1 inch 1 inch, Topical, 3 times daily, First dose on Mon09/26/23 at 0200, Hold for SBP less than 90. 0235 (Given - Provid er: Nory Menon RN)0826 (Given - Provider: Sarah Duran RN) senna-docusate (SENNA-S) 8.6-50 mg per tablet 1 tablet 1 tablet, Oral, 2 times daily, First dose on Mon09/26/23 at 0900, NOT for abdominal surgery patients. Hold for loose stools. Do Not Crush or Chew if administering orally due to bitter taste. May be crushed if given via tube. 0826 (Given - Provid er: Sarah Duran RN) PRN Medication Order 09/24/2023 09/25/2023 09/26/2023 acetaminophen (TYLENOL) tablet 650 mg 650 mg, Oral, Every 4 hours PRN, mild pain, fever 100.4 F or greater, headaches, Starting on Mon09/26/23 at 0105 0830 (Given - Provid er: Sarah Duran RN) aluminum-magnesium hydroxide-simethicone (MAALOX PLUS) 200-200-20 mg/5 mL suspension 30 mL 30 mL, Oral, Every 4 hours PRN, indigestion, Starting on Mon09/26/23 at 0105 atropine injection 1 mg 1 mg, Intravenous, As needed, SINGLE DOSE for bradycardia (HR less than 50), complete heart block, or escape rhythms with symptoms of hemodynamic compromise, Starting on Mon09/26/23 at 0103, [] NOTIFY PHYSICIAN, and request patient transfer to cardiac unit if not already there. [] If patient has history of glaucoma, notify physician before administering Atropine, if condition allows. bisacodyL (DULCOLAX) suppository 10 mg 10 mg, Rectal, Daily PRN, constipation, Starting on Mon09/26/23 at 0105, Try oral medications first for constipation. Try rectal medication if oral meds are ineffective, not tolerated, or not ordered. iopamidoL (ISOVUE-370) 370 mg iodine /mL (76 %) injection 75 mL (COMPLETED) 75 mL, Intravenous, Once in imaging, contrast, Starting on Mon09/26/23 at 0927, For 1 dose 0928 (Contrast Admin istered - Provider: Josie Real, TECHNOLOGIST) magnesium hydroxide (MOM) 400 mg/5 mL suspension 2,400 mg 2,400 mg (30 mL), Oral, Daily PRN, constipation, Starting on Mon09/26/23 at 0105, If no bowel movement in 24 hours after Sennosides (SENNA) administration. melatonin tablet 3 mg 3 mg, Oral, Nightly PRN, Sleep, Starting on Mon09/26/23 at 0105, If still awake in 1 hour proceed to trazodone (Desyrel) morphine (MSIR) tablet 7.5-15 mg 7.5-15 mg, Oral, Every 4 hours PRN (may repeat), moderate to severe pain, Starting on Mon09/26/23 at 0105, Initiate with 7.5 mg oral every 4 hours prn moderate to severe pain. For unrelieved pain, may repeat 7.5 mg within 60 minutes of initial dose. If pain is RELIEVED after repeat dose, change to 15 mg every 4 hours prn moderate to severe pain. If pain is UNrelieved after repeat dose, or patient requires dose reduction, call physician. morphine injection 2-4 mg 2-4 mg, Intravenous, Every 3 hours PRN (may repeat), moderate to severe pain, Starting on Mon09/26/23 at 0105, Initiate with 2 mg IV every 3 hours prn moderate to severe pain. For unrelieved pain, may repeat 2 mg within 30 minutes of initial dose. If pain is RELIEVED after repeat dose, change to 4 mg every 3 hours prn moderate to severe pain. If pain is UNrelieved after repeat dose, or patient requires dose reduction, call physician. May use IV for breakthrough pain or if unable to tolerate enteral routes. naloxone (NARCAN) injection 0.1 mg(Linked Group 1) 0.1 mg, Intravenous, As needed, opioid reversal, For respiratory rate less than or equal to 8 per minute., Starting on Mon09/26/23 at 0105, Mix nalOXone (NARCAN) 0.4 mg (1mL) with 9 mL of Normal Saline to total 10 mL. Administer 0.1 mg (2.5mL) IV Push every 2 minutes until respiratory rate is 10 or greater. naloxone (NARCAN) injection 0.4 mg(Linked Group 1) 0.4 mg, Intravenous, As needed, opioid reversal, patient is pulseless, breathless, and unresponsive, Starting on Mon09/26/23 at 0105, Call a code first, then administer naloxone dose undiluted IV Push over 30 seconds. nitroGLYCERIN (NITROSTAT) SL tablet 0.4 mg 0.4 mg, Sublingual, Every 5 min PRN, chest pain, Starting on Mon09/26/23 at 0105, For chest pain. May give up to 3 doses. Call physician for chest pain unrelieved by Nitroglycerin, or recurrent chest pain. DO NOT CRUSH OR CHEW. ondansetron (ZOFRAN) injection 4 mg(Linked Group 2) 4 mg, Intravenous, Every 6 hours PRN, nausea, vomiting, Starting on Mon09/26/23 at 0105, Use oral route first, if tolerated. ondansetron (ZOFRAN-ODT) disintegrating tablet 4 mg(Linked Group 2) 4 mg, Oral, Every 6 hours PRN, nausea, vomiting, Starting on Mon09/26/23 at 0105, Use oral route first, if tolerated. Formulation requires tablet remain in sealed package until immediately prior to dose being administered. perflutren lipid microspheres (DEFINITY) 0.143 mg/mL solution 0-10 mL of mixture 0-10 mL of mixture, Intravenous, Once in imaging, contrast, IF suboptimal echo, Starting on Mon09/26/23 at 0102, For 48 hours, Prepare syringe by withdrawing 1.3 mL of perflutren (DEFINITY) from the 2ml vial. Further dilute the 1.3 mL of perflutren with Sodium Chloride (NS) 0.9% to total volume of 10 ml. Chart total ML OF MIXTURE given to patient. senna (SENOKOT) tablet 8.6 mg 8.6 mg (1 tablet), Oral, 2 times daily PRN, constipation, Starting on Mon09/26/23 at 0105 sodium chloride (PF) (NS) 0.9 % contrast line flush 10 mL (COMPLETED)(Linked Group 3) 10 mL, Intravenous, Once in imaging, contrast, Per chute feeder (Radiology) for line patency check prior to contrast administration, Starting on Mon09/26/23 at 0927, For 1 dose 09 (Given - Provid er: Josie Real, TECHNOLOGIST) sodium chloride (PF) (NS) 0.9 % contrast line flush 80 mL (COMPLETED)(Linked Group 3) 80 mL, Intravenous, Once in imaging, contrast, Per chute feeder (Radiology), Starting on Mon09/26/23 at 0927, For 1 dose, 30 mL BEFORE contrast administration 50 mL AFTER contrast administration 09 (Given - Provid er: Josie Real, TECHNOLOGIST) traZODone (DESYREL) tablet 50 mg 50 mg, Oral, Nightly PRN, sleep, Starting on Mon09/26/23 at 0105, To be administered 1 hour after melatonin if still awake. May repeat x 1 dose in 30 minutes if still awake. Linked Groups Order Group 1: naloxone (NARCAN) injection 0.1 mgJump to med 0.1 mg, Intravenous, As needed, opioid reversal, For respiratory rate less than or equal to 8 per minute., Starting on Mon09/26/23 at 0105
Mix nalOXone (NARCAN) 0.4 mg (1mL) with 9 mL of Normal Saline to total 10 mL. Administer 0.1 mg (2.5mL) IV Push every 2 minutes until respiratory rate is 10 or greater.
And Notify physician (CANCELED) STAT, Until discontinued, Starting on Mon09/26/23 at 0106, Until Specified
Respiratory rate less than: 8
For respiratory rate less than or equal to 8, notify physician and/or appropriate staff for additional orders. And naloxone (NARCAN) injection 0.4 mgJump to med 0.4 mg, Intravenous, As needed, opioid reversal, patient is pulseless, breathless, and unresponsive, Starting on Mon09/26/23 at 0105
Call a code first, then administer naloxone dose undiluted IV Push over 30 seconds.
Group 2: ondansetron (ZOFRAN-ODT) disintegrating tablet 4 mgJump to med 4 mg, Oral, Every 6 hours PRN, nausea, vomiting, Starting on Mon09/26/23 at 0105
Use oral route first, if tolerated. Formulation requires tablet remain in sealed package until immediately prior to dose being administered.
Or ondansetron (ZOFRAN) injection 4 mgJump to med 4 mg, Intravenous, Every 6 hours PRN, nausea, vomiting, Starting on Mon09/26/23 at 0105
Use oral route first, if tolerated.
Group 3: sodium chloride (PF) (NS) 0.9 % contrast line flush 10 mL (COMPLETED)Jump to med 10 mL, Intravenous, Once in imaging, contrast, Per chute feeder (Radiology) for line patency check prior to contrast administration, Starting on Mon09/26/23 at 0927, For 1 dose And sodium chloride (PF) (NS) 0.9 % contrast line flush 80 mL (COMPLETED)Jump to med 80 mL, Intravenous, Once in imaging, contrast, Per chute feeder (Radiology), Starting on Mon09/26/23 at 0927, For 1 dose
30 mL BEFORE contrast administration 50 mL AFTER contrast administration
Care Teams (unrecognized sec tion and content) Foot Specialist Relationship Specialty Start Date End Date Julia Lofton MD [address] [place] [address] PCP - General Internal Medicine 09/25/23 Foot Specialist Relationship Specialty Start Date End Date Julia Lofton MD [address] [place] [facility] [place] [address] PCP - General Internal Medicine 07/24/24 Foot Specialist Relationship Specialty Start Date End Date Julia Lofton MD [address] [facility] [place] [address] PCP - General Internal Medicine 07/24/24 FOR RECORDS PERTAINING TO PATIENTS WHO ARE OR HAVE BEEN ENROLLED IN A CHEMICAL DEPENDENCY/SUBSTANCEABUSE PROGRAM, SOME INFORMATION MAY BE OMITTED. This clinical summary was aggregated from multiple sources. Caution should be exercised in using it in the provision of clinical care. This summary normalizes information from multiple sources, and as a consequence, information in this document may materially change the coding, format and clinical context of patient data. In addition, data may be omitted in some cases. CLINICAL DECISIONS SHOULD BE BASED ON THE PRIMARY CLINICAL RECORDS. [facility] [email or web address] provides no warranty or guarantee of the accuracy or completeness of information in this document.
== END | disposition home or self-care (01) ==
PROVIDERS: PCP Internal Medicine; Referring Provider Internal Medicine; Visit Provider Internal Medicine
DX: R05.3 Chronic cough (principal); J44.9 Chronic obstructive pulmonary disease, unspecified
CPT/HCPCS: 71260; 94060; 94726; 94729; Q9967

== ENCOUNTER → 2024-11-27 | Outpatient (CLI) | payer MEDICARE, SELFPAY ==
[2022-06-17 13:41] VITALS: BMI 26.7
[2024-11-27 15:30] LABS: Absolute Lymphocyte Count 2.07 X10^3/uL (0.83-4.51); Absolute Neutrophil Count 3.9 X10^3/uL (2.0-7.7); Basophil# 0.03 X10^3/uL; Basophil% 0.4 % (0-1); Eosinophil# 0.15 X10^3/uL; Eosinophils% 2.2 % (0-5); Hematocrit 38.7 % (37-47); Hemoglobin 12.3 g/dL (12.0-15.0); Lymphocyte # 2.07 X10^3/ul (0.83-4.51); Mean Corp Hgb Conc 31.8 g/dL (32-36); Mean Corpuscular Hgb 28.7 pg (27.0-32.0); Mean Corpuscular Volume 90.4 fL (81-99); Mean Platelet Vol. 10.6 fl (6.2-12.0); Monocyte% 7.5 % (0-10); NRBC Flagged by Analyzer 0 % (0-5); Neutrophil % 58.6 % (47-70); Platelet Count 262 K/mm3 (150-450); RBC Distribution Width CV 12.8 % (11.6-14.6); RBC Distribution Width SD 42.4 fl (35.1-43.9); Red Blood Count 4.28 M/mm3 (4.2-5.4); White Blood Count 6.7 K/mm3 (4.4-11.0)
[2024-11-27 15:46] LABS: AST(SGOT) 19 U/L (15-37); Alanine Aminotransfer ALT/SGPT 24 U/L (13-56); Albumin, Serum 3.7 g/dL (3.2-5.0); Alkaline Phosphatase 103 U/L (45-117); Anion Gap 8 (5-15); BUN 17 mg/dL (7-18); BUN/Creat Ratio 22.6 RATIO (10-20); Calcium,Total 8.9 mg/dL (8.5-10.1); Chloride 108 mmol/L (98-107); Creatinine, Serum 0.75 mg/dL (0.55-1.02); EST Glomerular Filtration Rate 79 mL/min (>60); Est Glom Filt Rate - Afr Amer 95 mL/min (>60); Globulin 3.7 g/dL (2.2-4.2); Glucose 109 mg/dL (74-106); Potassium 3.9 mmol/L (3.5-5.1); Protein, Total 7.4 g/dL (6.4-8.2); Sodium Level 140 mmol/L (136-145)
== END | disposition home or self-care (01) ==
LOC: BIMLAB 14:06
PROVIDERS: PCP Internal Medicine; Referring Provider Internal Medicine; Visit Provider Internal Medicine
DX: I10 Essential (primary) hypertension (principal)
CPT/HCPCS: 36415; 80053; 85025

== ENCOUNTER 2024-12-02 12:41 | Emergency (ER) | payer MEDICARE, SELFPAY ==
[2022-06-17 13:41] VITALS: BMI 26.7
[2024-12-02] VITALS (7 sets, daily range): BP systolic 95–146; BP diastolic 68–81; PULSE 71–92; RESP 16–23; TEMP 36.8–36.9; O2SAT 91–95; BMI 28.8
--- NOTE | 2024-12-02 15:32 | EDS_ITS ---
HPI History of Present Illness Chief Complaint: Cough Informant: patient and spouse/S.O. Narrative Narrative: Patient is a 79-year-old female with history of COPD (remote smoking history), coronary disease status post stenting, stroke, sleep apnea (does not wear home O2 or BiPAP) and ischemic cardiomyopathy presenting with cough and flulike symptoms for the past 3 days. She states that she has not been feeling good for 3 days has had a cough that is productive of mucus but she is have a hard time getting it up. She has been short of breath minimal activity. He has been having diarrhea (1-2 episodes a day). Denies any nausea or vomiting. Denies abdominal pain. Is had congestion and dry throat. States she feels hoarse. This morning when she got up she felt especially weak and when she was trying to do her hair she felt she was going to collapse. She notes has been laying around in bed for the past 2 days. Denies any fever. Denies any swelling of her legs. Does have aerosols and rescue inhalers at home but does not like to use them. She notes that she did go to her doctor office last week and thinks she might of gotten sick from something there. No other complaints or concerns reported at this time [facility] Medical History Abdominal wall strain Eye twitch Pain, eye, right UTI (urinary tract infection) GERD (gastroesophageal reflux disease) Cough Cervical radiculopathy Swallowing difficulty Abnormal mammogram of right breast Breast mass, right Insomnia Right ear pain Contact with and (suspected) exposure to other viral communicable diseases CVA (cerebral vascular accident) Osteoarthritis of right hip Recurrent UTI Congestive heart failure (CHF) Right groin pain Dry mouth Leg cramps Dehydration Dark urine Abdominal pain Right foot pain Flu vaccine need Hoarseness Left shoulder pain Left cervical radiculopathy Abnormal urinalysis Right flank pain Post-menopausal Wears dentures Wears glasses Arthritis High cholesterol TIA (transient ischemic attack) Former smoker Sleep apnea Shortness of breath on exertion Chronic cough History of echocardiogram History of stress test Hypertension Cardiology follow-up encounter History of heart attack Colon cancer screening Arthritis Cataracts, bilateral Osteoporosis Ischemic cardiomyopathy Essential hypertension History of non-ST elevation myocardial infarction (NSTEMI) (01/02/20) Hyperlipidemia COPD (chronic obstructive pulmonary disease) Retinal artery thrombosis, 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) Atherosclerosis of coronary artery of [place] heart without angina pectoris Dyspnea Lung nodule Periodic limb movement DEEPAK (obstructive sleep apnea) Home Medications ?Medication ?Instructions ?Recorded ?Last Taken ?Type aspirin 81 mg chewable tablet 81 mg PO DAILY@0800 prev entative 01/02/20 02/20/22 History amlodipine 5 mg tablet See Rx Instructions .Route 0 04/11/24 Unknown Rx .COMPLEX #90 tabs nitroglycerin 0.4 mg sublingual 0.4 mg sublingual Q5-1 5M PRN chest 04/11/24 Unknown Rx tablet pain #25 tabs furosemide 40 mg tablet 40 mg PO .2XWEEK Dieutic #2 4 tabs 04/12/24 Unknown Rx clopidogrel 75 mg tablet 75 mg PO DAILY Heart #90 tab s 09/11/24 Unknown Rx metoprolol succinate 50 mg 50 mg PO DAILY #90 TABLETS 09/11/24 Unknown Rx tablet,extended release 24 hr cholecalciferol (vitamin D3) 1,250 1,250 mcg PO QWEEK #14 caps 09/17/24 Unknown Rx mcg (50,000 unit) capsule atorvastatin 40 mg tablet 40 mg PO QHS Cholesterol #90 tabs 10/28/24 Unknown Rx budesonide-formoterol HFA 160 2 puff inhalation BID #1 0.2 grams 11/27/24 Unknown Rx mcg-4.5 mcg/actuation aerosol inhaler (Symbicort) doxepin 6 mg tablet 6 mg PO QHS PRN sleep #30 ta bs 11/27/24 Unknown Rx cephalexin 500 mg capsule 500 mg PO Q12 #14 CAPSULES 0 12/02/24 Unknown Rx prednisone 20 mg tablet 40 mg (2 x 20 mg) PO DAILY # 10 12/02/24 Unknown Rx TABLETS Allergy/AdvReac Type Severity Reaction Status Date / Time lisinopril Allergy Cough Verified 12/02/24 12:42 losartan Allergy Cough Verified 12/02/24 12:42 Sulfa (Sulfonamide AdvReac Rash Verified 12/02/24 12:42 Antibiotics) Family History Father Heart disease Hypertension Sister Heart disease Breast cancer Diabetes Hypertension Sepsis due to urinary tract infection Brother Heart disease Alzheimer's dementia Diabetes Hypertension Mother Cancer Bladder Heart disease Hypertension Surgical History History of cardiac catheterization History of reconstructive repair of rectocele History of coronary artery stent placement History of lymph node excision History of hysterectomy History of cholecystectomy Social History Smoking Status: Former smoker Tobacco: How many years used: 34 how long ago did patient quit smokin second hand exposure: No alcohol intake: current alcohol intake frequency: holidays/special occasions only substance use type: does not use caffeine: Yes Type: coffee Number of servings: 3 what type of physical activity do you participate in: walking ROS ROS ED Constitutional Constitutional ED: Denies chills or fever(s) ENT ENT ED: Reports rhinorrhea, sore throat and other Details: Congestion, hoarse voice Cardiovascular Cardiovascular: Denies chest pain or palpitations Respiratory/Chest Respiratory/Chest: Reports cough, dyspnea, dyspnea on exertion and sputum Gastrointestinal Gastrointestinal: Reports nausea; Denies abdominal pain, diarrhea or vomiting Musculoskeletal Musculoskeletal: Reports arthralgias and myalgias Integumentary Denies rash Neurologic Neurologic: Reports weakness; Denies paresthesias Hematologic/Lymphatic Hematologic/Lymphatic: Denies easy bleeding or easy bruising EXAM Physical Exam Const Vital Signs: 12/02/24 12:42 12/02/24 14:41 12/02/24 15:13 Temperature 98.4 F Temperature Source Oral Pulse Rate 86 92 Respiratory Rate 18 23 H Respiratory Effort Short of Breath Blood Pressure 146/70 H Blood Pressure Mean 95 Pulse Ox 94 95 Oxygen Delivery Method Room Air Room Air 12/02/24 16:00 12/02/24 16:53 12/02/24 18:00 Temperature Temperature Source Pulse Rate 81 86 81 Respiratory Rate 16 Respiratory Effort Blood Pressure 113/80 95/81 H Blood Pressure Mean 91 85 Pulse Ox 93 91 Oxygen Delivery Method Room Air 12/02/24 18:48 12/02/24 18:54 Temperature 98.2 F Temperature Source Pulse Rate 71 Respiratory Rate 18 Respiratory Effort Blood Pressure 123/68 H 123/68 H Blood Pressure Mean 86 86 Pulse Ox 94 Oxygen Delivery Method Positive well nourished and well developed General Appearance ED: well developed and NAD HEENT Reports TM's clear and moist mucous membranes HEENT Narrative: Mild injection of the posterior oropharynx. Normal tonsils. Uvula midline. Mildly hoarse voice Tympanic Membrane ED: Yes TM's clear Eyes PERRL Neck no lymphadenopathy, supple and no JVD Chest Wall inspection of chest normal and palpation of chest normal Resp normal respiratory effort Resp Narrative: Very mild end expiratory wheeze noted in the left upper lung field. Intermittent bronchial sounding cough on exam. Auscultation: Negative for rales or rhonchi Cardio regular rate, regular rhythm and no murmurs GI normal to inspection, nondistended, normoactive bowel sounds and non-tender Palpation: soft; Negative for tender or guarding Extremity normal to inspection General Extremety ED: Negative for edema General Extremity: Negative for edema Neuro oriented x3 Sensorium / Orientation: alert Motor Exam: Negative for general weakness Psych mental status grossly normal Skin no rashes or lesions noted and no wounds MDM MDM MDM Narrative Medical decision making narrative: Patient valuated for 3 days of cough, flulike symptoms and diarrhea. There is a high prevalence in the community of influenza A and will obtain a flu swab. Will also obtain chest x-ray to look for pneumonia. Will obtain cardiac workup given she has a cardiac history including high sensitive troponin and EKG. Will check CBC and BMP looking for signs of symptomatic anemia, leukocytosis or electrolyte derangement. X-ray 2 views reviewed by myself as well as radiology does not show any acute process this is changes consistent with COPD. This is consistent with her history. Patient is given a DuoNeb for worsening cough as well as Tessalon Perles. She does have a small episode of vomiting during the breathing treatment. I am not sure if she is having posttussive emesis with it or if it was more of a panic response that she states she does not like her breathing treatments. This is aborted. Patient has a normal CBC, high-sensitivity troponin, EKG, CMP. She does have what looks to be urinary tract infection with positive nitrates, greater than 100 white blood cells and 4+ bacteria with minimal contamination. Urine culture sent. Should be started on Keflex for this (prior urine culture on 02/29/2024 showed Klebsiella pneumoniae sensitive to cephalosporins). IN addition she is positive for influenza A. She has had symptoms for more than 48 hours and is not a candidate for Tamiflu. Patient's O2 sat does drop to 89% at rest at some points but Stays around 90 to 91% on Room air. She Ambulates with Pulse Ox and Stays above 90%. She Is Offered Admission However She Declined Stating She Would Prefer to Go Home. She is given very close return precautions. Both patient and verbalized agreement with this. Lab Data Attestation: I reviewed the patient's lab results. Labs: Laboratory Results - last 24 hr 12/02/24 12/02/24 15:35 16:30 WBC 4.5 RBC 4.61 Hgb 13.2 Hct 40.9 MCV 88.7 MCH 28.6 MCHC 32.3 RDW Std Deviation 42.7 RDW Coeff of Vlad 13.1 Plt Count 209 MPV 9.9 Immature Gran % (Auto) 0.200 Neut % (Auto) 54.5 Lymph % (Auto) 28.2 Graves % (Auto) 16.7 H Eos % (Auto) 0.0 Baso % (Auto) 0.4 Absolute Neuts (auto) 2.5 Absolute Lymphs (auto) 1.28 Nucleated RBC % 0 Sodium 136 Potassium 3.9 Chloride 102 Carbon Dioxide 27.0 Anion Gap 7 BUN 17 Creatinine 1.02 Estim Creat Clear Calc 44.69 Est GFR (MDRD) Af Amer 67 Est GFR (MDRD) Non-Af 55 L BUN/Creatinine Ratio 16.7 Glucose 87 Calcium 9.3 Total Bilirubin 0.40 AST 30 ALT 47 Alkaline Phosphatase 115 Troponin I High Sens 11 Total Protein 7.7 Albumin 3.6 Globulin 4.1 Albumin/Globulin Ratio 0.9 Urine Color Yellow Urine Clarity Cloudy Urine pH 5.0 Ur Specific Rowe 1.020 Urine Protein 30 H Urine Glucose (UA) Normal Urine Ketones Negative Urine Occult Blood 150 H Urine Nitrite Positive H Urine Bilirubin Negative Urine Urobilinogen Normal Ur Leukocyte Esterase 500 H Urine RBC 0-5 SEEN Urine WBC >100 SEEN Ur Squamous Epith Cells 0-5 SEEN Urine Bacteria 4+ Urine Mucus 0 SEEN Radiography Diagnostic Testing: Clinical Impression(s) from Imaging Studies Chest X-Ray 12/02/24 16:00 IMPRESSION: COPD changes with no acute cardiopulmonary disease Reading [facility] Rhythm Strip Rhythm Strip: Sinus Rhythm Rate: 80 Ectopy: None EKG Initial EKG: Attestation: I personally reviewed and interpreted this EKG as follows: Interpretation: Sinus Rhythm Comments: Normal sinus rhythm rate of 80 bpm Normal axis Normal intervals No ST segment Discharge Plan Triage Chief Complaint: Cough Other Complaint: Diarrhea ED Provider: Monet Amato Dx/Rx/DC Orders Clinical Impression: Influenza A, UTI (urinary tract infection), Cough Instructions: Urinary Tract Infections in Women, ED Influenza (Adult) Prescriptions: New cephalexin 500 mg capsule 500 mg PO Q12 Qty: 14 0RF prednisone 20 mg tablet 40 mg PO DAILY Qty: 10 0RF No Action nitroglycerin 0.4 mg tablet, sublingual 0.4 mg SUBLINGUAL Q5-15M PRN (Reason: chest pain) Qty: 25 3RF Rx Instructions: do not exceed 3 doses per episode amlodipine 5 mg tablet See Rx Instructions .ROUTE .COMPLEX Qty: 90 3RF Dose Instruction: Take 1 tablet by mouth once daily Rx Instructions: Take 1 tablet by mouth once daily furosemide 40 mg tablet 40 mg PO .2XWEEK Qty: 24 3RF Rx Instructions: 2 tabs a week clopidogrel 75 mg tablet 75 mg PO DAILY Qty: 90 3RF metoprolol succinate 50 mg tablet extended release 24 hr 50 mg PO DAILY Qty: 90 3RF budesonide-formoterol [Symbicort] 160-4.5 mcg/actuation HFA aerosol inhaler 2 puff inhalation BID Qty: 10.2 3RF doxepin 6 mg tablet 6 mg PO QHS PRN (Reason: sleep) Qty: 30 1RF aspirin 81 MG tablet,chewable 81 mg PO DAILY@0800 cholecalciferol (vitamin D3) 1,250 mcg (50,000 unit) capsule 1,250 mcg PO QWEEK Qty: 14 2RF atorvastatin 40 mg tablet 40 mg PO QHS Qty: 90 1RF Primary Care Provider: Julia Lofton Referrals: Julia Lofton MD [Primary Care Provider] - Activity Restrictions/Additional Instructions: You have a urinary tract infection as well as influenza A. I suspect influenza is irritating your COPD which is why been prescribed steroids. Continue to push fluids. Alternate ibuprofen and Tylenol at home for fever and bodyaches. You have also been prescribed antibiotics for your urinary tract infection. If you feel your symptoms are worsening in any way please return to the emergency room. Print Language: Slovenian Disposition Disposition: Home, Self Care Discharge Date/Time: 12/02/24 18:58
[2024-12-02 15:47] LABS: Absolute Lymphocyte Count 1.28 X10^3/uL (0.83-4.51); Absolute Neutrophil Count 2.5 X10^3/uL (2.0-7.7); Basophil# 0.02 X10^3/uL; Basophil% 0.4 % (0-1); Hematocrit 40.9 % (37-47); Hemoglobin 13.2 g/dL (12.0-15.0); Lymphocyte # 1.28 X10^3/ul (0.83-4.51); Lymphocyte % 28.2 % (19-41); Mean Corp Hgb Conc 32.3 g/dL (32-36); Mean Corpuscular Hgb 28.6 pg (27.0-32.0); Mean Corpuscular Volume 88.7 fL (81-99); Mean Platelet Vol. 9.9 fl (6.2-12.0); Monocyte# 0.76 X10^3/uL; Monocyte% 16.7 % (0-10); NRBC Flagged by Analyzer 0 % (0-5); Neutrophil # 2.47 X10^3/uL (2.7-7.7); Neutrophil % 54.5 % (47-70); Platelet Count 209 K/mm3 (150-450); RBC Distribution Width CV 13.1 % (11.6-14.6); RBC Distribution Width SD 42.7 fl (35.1-43.9); Red Blood Count 4.61 M/mm3 (4.2-5.4); White Blood Count 4.5 K/mm3 (4.4-11.0)
--- NOTE | 2024-12-02 16:00 | RAD_ITS ---
PROCEDURE: CHEST PA AND LATERAL REASON FOR EXAM: Cough TECHNIQUE: Frontal and lateral views of the chest. COMPARISON: 04/11/2024 FINDINGS: The heart size is normal. There are atherosclerotic calcifications of the thoracic aorta. Hyperexpanded lungs with no acute infiltrate Degenerative changes are identified within the thoracic spine. RAD/Chest PA and Lateral IMPRESSION: COPD changes with no acute cardiopulmonary disease Reading Location: [facility]
[2024-12-02 16:20] LABS: ALB/GLOB Ratio 0.9 RATIO (0.9-2.4); AST(SGOT) 30 U/L (15-37); Alanine Aminotransfer ALT/SGPT 47 U/L (13-56); Albumin, Serum 3.6 g/dL (3.2-5.0); Alkaline Phosphatase 115 U/L (45-117); Anion Gap 7 (5-15); BUN 17 mg/dL (7-18); BUN/Creat Ratio 16.7 RATIO (10-20); Calcium,Total 9.3 mg/dL (8.5-10.1); Chloride 102 mmol/L (98-107); Creatinine, Serum 1.02 mg/dL (0.55-1.02); EST Glomerular Filtration Rate 55 mL/min (>60); Est Glom Filt Rate - Afr Amer 67 mL/min (>60); Estimated Creatinine Clearance 44.69 ml/min; Globulin 4.1 g/dL (2.2-4.2); Glucose 87 mg/dL (74-106); Potassium 3.9 mmol/L (3.5-5.1); Protein, Total 7.7 g/dL (6.4-8.2); Sodium Level 136 mmol/L (136-145); Troponin-I HS 11 pg/mL (3.0-54.0)
[2024-12-02 16:37] LABS: Mucous, Urine 0 SEEN /hpf (<or=2+)
[2024-12-02 16:47] LABS: Color, Urine Yellow (Yellow); Glucose, Dipstick Normal (Normal); Ketone-Dipstick Negative (Negative); Leukocyte Esterase-Dipstick 500 /ul (Negative); Nitrite-Dipstick Positive (Negative); Occult Blood-Urine 150 /ul (Negative); Protein-Dipstick 30 mg/dl (Negative); Urine Bilirubin Dipstick Negative (Negative); Urine Clarity Cloudy (Clear); Urine Urobilinogen Normal (Normal)
[2024-12-02] MEDS: Ipratropium/Albuterol Sulfate 3 ML AMPUL.NEB INHALATION (16:51)
--- NOTE | 2024-12-02 16:59 | CPS ---
Pt became sick with her breathing treatment and threw up. Breathing treatment stopped and MD aware.
[2024-12-02 17:06] LABS: Bacteria 4+ /hpf (None Seen); White Blood Cells >100 SEEN /hpf (0-5)
[2024-12-02 17:07] LABS: Red Blood Cells-Urine 0-5 SEEN /hpf (0-5); Squamous Epithelial Cells - UA 0-5 SEEN /hpf (5-10)
[2024-12-02] MEDS: Ondansetron 4 MG/2 ML Vial IV (17:12)
[2024-12-02] MEDS: Benzonatate 100 MG Capsule PO (17:22)
[2024-12-02] MEDS: predniSONE 20 MG Tablet 40 MG PO (18:47)
[2024-12-02] MEDS: Cephalexin 250 MG Capsule 500 MG PO (18:47)
== END 2024-12-02 18:58 | disposition home or self-care (01) ==
PROVIDERS: Emergency Provider Emergency Medicine; PCP Internal Medicine; Visit Provider Emergency Medicine
DX: J10.1 Influenza due to other identified influenza virus with other respiratory manifestations (principal); J44.9 Chronic obstructive pulmonary disease, unspecified; N39.0 Urinary tract infection, site not specified; I25.5 Ischemic cardiomyopathy; R19.7 Diarrhea, unspecified; Z87.891 Personal history of nicotine dependence; Z95.5 Presence of coronary angioplasty implant and graft; I25.10 Atherosclerotic heart disease of native coronary artery without angina pectoris; R05.9 Cough, unspecified; Z90.49 Acquired absence of other specified parts of digestive tract; Z90.710 Acquired absence of both cervix and uterus; G47.33 Obstructive sleep apnea (adult) (pediatric); I25.2 Old myocardial infarction; Z86.73 Personal history of transient ischemic attack (TIA), and cerebral infarction without residual deficits; E78.00 Pure hypercholesterolemia, unspecified
CPT/HCPCS: 71046; 80053; 81001; 84484; 85025; 87077; 87086; 87088; 87186; 87631; 93005; 94640; 96374; 99285; A4216; J2405

== ENCOUNTER → 2025-01-10 | Outpatient (CLI) | payer MEDICARE, SELFPAY ==
[2022-06-17 13:41] VITALS: BMI 26.7
[2025-01-10 10:03] LABS: Bacteria 0 SEEN /hpf (None Seen); Mucous, Urine 0 SEEN /hpf (<or=2+); White Blood Cells 0 SEEN /hpf (0-5)
[2025-01-10 12:39] LABS: Color, Urine Yellow (Yellow); Glucose, Dipstick Normal (Normal); Ketone-Dipstick Negative (Negative); Leukocyte Esterase-Dipstick Negative /ul (Negative); Nitrite-Dipstick Negative (Negative); Occult Blood-Urine Negative /ul (Negative); Protein-Dipstick 15 mg/dl (Negative); Urine Bilirubin Dipstick Negative (Negative); Urine Clarity Sl. Cloudy (Clear); Urine Urobilinogen Normal (Normal)
[2025-01-10 12:52] LABS: Red Blood Cells-Urine 0 SEEN /hpf (0-5); Squamous Epithelial Cells - UA 0-5 SEEN /hpf (5-10)
== END | disposition home or self-care (01) ==
LOC: LABSPEC 09:57
PROVIDERS: PCP Internal Medicine; Referring Provider Physician Assistant; Visit Provider Physician Assistant
DX: N39.0 Urinary tract infection, site not specified (principal)
CPT/HCPCS: 81001

== ENCOUNTER → 2025-01-31 | Outpatient (CLI) | payer MEDICARE, SELFPAY ==
[2022-06-17 13:41] VITALS: BMI 26.7
--- NOTE | 2025-01-31 08:18 | CT_ITS ---
PROCEDURE: ABDOMEN/PELVIS WITHOUT CONT 01/31/2025 REASON FOR EXAM: PAIN TECHNIQUE: Abdomen and pelvis CT without intravenous contrast. Noncontrast technique limits evaluation of the abdominal and pelvic viscera. Coronal and Sagittal reconstruction series were provided. One or more dose reduction techniques were used (e.g., Automated exposure control, adjustment of the mA and/or kV according to patient size, use of iterative reconstruction technique). PATIENT PREPARATION: Per protocol ORAL CONTRAST TYPE: None. AMOUNT: mL COMPARISON: None. RADIATION DOSE SUMMARY: CTDlvol: 9.32 mGy DLP: 475.03 mGycm One or more dose reduction techniques were used (e.g., Automated exposure control, adjustment of the mA and/or kV according to patient size, use of iterative reconstruction technique). FINDINGS: Note that evaluation of the abdominopelvic viscera, vasculature, and remaining soft tissues is limited in the absence of IV contrast. Lung bases: Coronary atherosclerosis and/or stents. Likely remote infarct involving the LV apex. Mitral annular calcification. Atelectasis/scarring.. Liver: Unremarkable. Spleen: Unremarkable. Gallbladder: Cholecystectomy. Mild prominence of the CBD to 9 mm which may be related to post cholecystectomy effect. Pancreas: Unremarkable. Adrenals: Unremarkable. Kidneys: Unremarkable. Bowel: Prominent periampullary duodenal diverticulum. Diverticulosis. Intramural fat deposition within the hernandez of the colon at some levels is a nonspecific finding which can be seen in the setting of obesity or chronic inflammation.. Question trace stranding in the posterior perianal region. Normal caliber appendix. Lymph nodes: Unremarkable. Vasculature: Moderate to advanced atherosclerosis. Circumaortic LEFT renal vein, normal variant.. Peritoneum: Unremarkable. Bladder: Underdistended and suboptimally evaluated, grossly unremarkable. Reproductive Organs: Hysterectomy. Body Wall: Tiny fat containing umbilical hernia. Bones: Demineralization. Trace lumbar levoscoliosis may be positional.. CT/Abdomen/Pelvis without Cont IMPRESSION: 1. Question trace stranding versus scarring in the posterior perianal region. C orrelate for clinical evidence of a focal infectious/inflammatory process. 2. Cholecystectomy with mild prominence of the CBD which may be related to post cholecystectomy effect. Correlate with serum bilirubin. 3. If concern or unexplained symptoms persist, consider a follow-up exam with I V contrast. 4. Additional description as above. Reading Location: [id number]
== END | disposition home or self-care (01) ==
LOC: CT 08:14
PROVIDERS: PCP Internal Medicine; Referring Provider Physician Assistant; Visit Provider Physician Assistant
DX: R10.9 Unspecified abdominal pain (principal)
CPT/HCPCS: 74176

== ENCOUNTER → 2025-02-04 | Outpatient (CLI) | payer MEDICARE, SELFPAY ==
[2022-06-17 13:41] VITALS: BMI 26.7
[2025-02-04 15:58] LABS: Absolute Lymphocyte Count 2.26 X10^3/uL (0.83-4.51); Absolute Neutrophil Count 4.1 X10^3/uL (2.0-7.7); Basophil# 0.03 X10^3/uL; Basophil% 0.4 % (0-1); Eosinophil# 0.19 X10^3/uL; Eosinophils% 2.7 % (0-5); Hematocrit 35.1 % (37-47); Hemoglobin 11.8 g/dL (12.0-15.0); Lymphocyte # 2.26 X10^3/ul (0.83-4.51); Lymphocyte % 31.6 % (19-41); Mean Corp Hgb Conc 33.6 g/dL (32-36); Mean Corpuscular Hgb 29.4 pg (27.0-32.0); Mean Corpuscular Volume 87.5 fL (81-99); Mean Platelet Vol. 10.6 fl (6.2-12.0); Monocyte# 0.58 X10^3/uL; Monocyte% 8.1 % (0-10); NRBC Flagged by Analyzer 0 % (0-5); Neutrophil # 4.07 X10^3/uL (2.7-7.7); Neutrophil % 56.9 % (47-70); Platelet Count 254 K/mm3 (150-450); RBC Distribution Width SD 41.2 fl (35.1-43.9); Red Blood Count 4.01 M/mm3 (4.2-5.4); White Blood Count 7.2 K/mm3 (4.4-11.0)
[2025-02-04 16:40] LABS: ALB/GLOB Ratio 1.6 RATIO (0.9-2.4); AST(SGOT) 18 U/L (<=31); Alanine Aminotransfer ALT/SGPT 18 U/L (<=34); Albumin, Serum 4.1 g/dL (3.4-4.8); Alkaline Phosphatase 90 U/L (35-104); Anion Gap 11 (5-15); BUN 17 mg/dL (4-19); BUN/Creat Ratio 20.3 RATIO (10-20); Calcium,Total 9.3 mg/dL (7.6-11.0); Carbon Dioxide 24.1 mmol/L (21.0-32.0); Chloride 105 mmol/L (98-108); Creatinine, Serum 0.82 mg/dL (0.70-1.20); EST Glomerular Filtration Rate 72 (>60); Globulin 2.6 g/dL (2.2-4.2); Glucose 110 mg/dL (70-99); Potassium 3.8 mmol/L (3.3-5.1); Protein, Total 6.7 g/dL (5.9-8.4); Sodium Level 140 mmol/L (133-145); Total Bilirubin 0.22 mg/dL (0.00-1.30)
[2025-02-04 17:31] LABS: Cholesterol 183 mg/dL (<=200); High Density Lipoprotein 62 mg/dL; Low Density Lipoprotein Calc. 85 mg/dL; Triglycerides 179 mg/dL; Very Low Density Lipoprotein 36 mg/dL (5-40); cholesterol:hdl ratio screen 2.94
== END | disposition home or self-care (01) ==
LOC: BIMLAB 13:59
PROVIDERS: PCP Internal Medicine; Referring Provider Physician Assistant; Visit Provider Physician Assistant
DX: E78.5 Hyperlipidemia, unspecified (principal); R10.9 Unspecified abdominal pain; I10 Essential (primary) hypertension
CPT/HCPCS: 36415; 80053; 80061; 85025

== ENCOUNTER → 2025-03-04 | Outpatient (CLI) | payer MEDICARE, SELFPAY ==
[2022-06-17 13:41] VITALS: BMI 26.7
[2025-03-04 15:28] LABS: Absolute Lymphocyte Count 1.96 X10^3/uL (0.83-4.51); Absolute Neutrophil Count 3.9 X10^3/uL (2.0-7.7); Basophil# 0.03 X10^3/uL; Basophil% 0.4 % (0-1); Eosinophil# 0.23 X10^3/uL; Eosinophils% 3.4 % (0-5); Hematocrit 39.9 % (37-47); Hemoglobin 12.8 g/dL (12.0-15.0); Lymphocyte # 1.96 X10^3/ul (0.83-4.51); Mean Corp Hgb Conc 32.1 g/dL (32-36); Mean Corpuscular Hgb 28.7 pg (27.0-32.0); Mean Corpuscular Volume 89.5 fL (81-99); Mean Platelet Vol. 10.8 fl (6.2-12.0); Monocyte# 0.63 X10^3/uL; Monocyte% 9.3 % (0-10); NRBC Flagged by Analyzer 0 % (0-5); Neutrophil # 3.89 X10^3/uL (2.7-7.7); Neutrophil % 57.6 % (47-70); Platelet Count 285 K/mm3 (150-450); RBC Distribution Width CV 12.7 % (11.6-14.6); RBC Distribution Width SD 41.6 fl (35.1-43.9); Red Blood Count 4.46 M/mm3 (4.2-5.4); White Blood Count 6.8 K/mm3 (4.4-11.0)
[2025-03-04 16:10] LABS: Anion Gap 13 (5-15); BUN 15 mg/dL (4-19); BUN/Creat Ratio 16.1 RATIO (10-20); Calcium,Total 9.4 mg/dL (7.6-11.0); Carbon Dioxide 26.7 mmol/L (21.0-32.0); Chloride 102 mmol/L (98-108); EST Glomerular Filtration Rate 65 (>60); Glucose 88 mg/dL (70-99); Potassium 3.7 mmol/L (3.3-5.1); Pro- Brain NATRIURETIC PEPTIDE 457 pg/mL (<=1800); Sodium Level 142 mmol/L (133-145)
== END | disposition home or self-care (01) ==
LOC: LAB 13:44
PROVIDERS: PCP Internal Medicine; Referring Provider Nurse Practitioner Gerontology; Visit Provider Nurse Practitioner Gerontology
DX: R06.09 Other forms of dyspnea (principal); R53.83 Other fatigue
CPT/HCPCS: 36415; 80048; 83880; 84443; 85025

== ENCOUNTER → 2025-09-01 | Outpatient (CLI) | payer MEDICARE, SELFPAY ==
[2022-06-17 13:41] VITALS: BMI 26.7
[2025-09-01 12:39] LABS: Hematocrit 38.2 % (37-47); Hemoglobin 12.7 g/dL (12.0-15.0); Immature Granulocytes Count 0.030 X10^3/uL (0.0-0.0); Mean Corp Hgb Conc 33.2 g/dL (32-36); Mean Corpuscular Volume 88.4 fL (81-99); Mean Platelet Vol. 10.7 fl (6.2-12.0); NRBC Flagged by Analyzer 0 % (0-5); Platelet Count 269 K/mm3 (150-450); RBC Distribution Width CV 12.7 % (11.6-14.6); RBC Distribution Width SD 41.2 fl (35.1-43.9); Red Blood Count 4.32 M/mm3 (4.2-5.4); White Blood Count 7.6 K/mm3 (4.4-11.0)
[2025-09-01 14:05] LABS: Anion Gap 13 (5-15); BUN 16 mg/dL (4-19); BUN/Creat Ratio 20.1 RATIO (10-20); Calcium,Total 9.5 mg/dL (7.6-11.0); Carbon Dioxide 24.4 mmol/L (21.0-32.0); Chloride 105 mmol/L (98-108); Glucose 101 mg/dL (70-99); Potassium 4.0 mmol/L (3.3-5.1); Pro- Brain NATRIURETIC PEPTIDE 509 pg/mL (<=1800)
== END | disposition home or self-care (01) ==
LOC: LAB 11:42
PROVIDERS: PCP Internal Medicine; Referring Provider Nurse Practitioner Gerontology; Visit Provider Nurse Practitioner Gerontology
DX: R06.09 Other forms of dyspnea (principal)
CPT/HCPCS: 36415; 80048; 83880; 84443; 85025

== ENCOUNTER → 2025-10-01 | Outpatient (CLI) | payer MEDICARE, SELFPAY ==
[2022-06-17 13:41] VITALS: BMI 26.7
--- NOTE | 2025-10-01 14:13 | NEURO ---
NCS and/or EMG Patient Report Ordering Doctor: Su Horowitz DATE OF SERVICE: 10/01/25 Dahlia presents for electrodiagnostic testing of the left upper limb. She reports pain in the left forearm, which is intermittent. Electrodiagnostic findings: Left median motor nerve demonstrates normal distal latency, amplitude and conduction velocity. Left ulnar motor response is within normal limits. Normal median and ulnar F?waves. Sensory responses are normal. Needle EMG testing was performed the left upper limb. All muscles tested showed no evidence of denervation with normal motor unit action potentials. Electrodiagnostic impression: This is a normal electrodiagnostic study of the left upper limb. There is no electrodiagnostic evidence for peripheral neuropathy or cervical radiculopathy Multi Select Codes Neurology Neurology Interp Codes: 20976-70 Musc test done w/n test comp (interp) and 37342-75 Nrv cndj test 7-8 studies (interp)
== END | disposition home or self-care (01) ==
LOC: PSN 12:56
PROVIDERS: PCP Internal Medicine
DX: M79.602 Pain in left arm (principal)
CPT/HCPCS: 95886; 95910

== ENCOUNTER 2025-10-10 12:03 | Emergency (ER) | payer MEDICARE, SELFPAY ==
[2022-06-17 13:41] VITALS: BMI 26.7
[2025-10-10 12:04] VITALS: BP 160/72; PULSE 75; RESP 16; TEMP 36.2; O2SAT 96; BMI 29.5
--- NOTE | 2025-10-10 13:15 | RAD_ITS ---
PROCEDURE: FOOT MIN 3 VIEWS 10/10/2025 REASON FOR EXAM: PAIN TECHNIQUE: Procedure Code: RADFO Modality: DX Procedure: FOOT MIN 3 VIEWS COMPARISON: None FINDINGS: No evidence of acute fracture or dislocation. There are no significant joint space abnormalities. There is soft tissue swelling over the dorsum of the foot at the level of the metatarsals. RAD/Foot min 3 Views IMPRESSION: Soft tissue swelling without fracture or dislocation. Reading Location: [id number]
--- OUTSIDE RECORDS SUMMARY | 2025-10-10 13:28 | XMS RPT_ITS | CCD ---
Author Organization [facility] CliniSyms Care Team Providers Care Operator Helper Name Role Phone Distel, Yumiko Unavailable Unavailable Distel, Yumiko Unavailable Unavailable Distel, Yumiko Unavailable Unavailable Dr. Cole Ochoa Attending Provider [phone])- Dr. Yuko Lofton Attending Provider [phone])2 Dr. Cole Ochoa Referring Provider 1(330)- Dr. Cole Ochoa Other Provider Dr. Yuko Lofton Primary Care Provider 1(33 0) Dr. Yuko Lofton Referring Provider 1(330)2 Dr. Evon Cross Attending Provider Dr. Evon Cross Other Provider Dr. Yuko Lofton Primary Care Provider 1(33 0) Dr. Yuko Lofton Attending Provider 1(330)2 Dr. Yuko Lofton Primary Care Provider 1(33 0) Dr. Yuko Lofton Referring Provider 1(330)2 Dr. Evon Cross Attending Provider BRITTNEY Carty NP Attending Provider Dr. Yuko Lofton Primary Care Provider 1(33 0) Dr. Yuko Lofton Referring Provider 1(330)2 Dr. Yuko Lofton Primary Care Provider 1(33 0) Dr. Yuko Lofton Attending Provider 1(330)2 Dr. Yuko Lofton Referring Provider [phone])2 Carloz DISPATCHER TUGBO[place], DISPATCHER TUGBOAT-C Carisa Attending Provider Dr. Cole Ochoa Attending Provider [phone] Dr. Yuko Lofton Primary Care Provider 1(33 0) Rolly, Dr. Dumont Referring Provider [phone])2 Carloz DISPATCHER [place], DISPATCHER [place]UGBO[place]-C Carisa Attending Provider Dr. Yuko Lofton Attending Provider [phone])2 Dr. Yuko Lofton Primary Care Provider 1(33 0) Dr. Yuko Lofton Attending Provider 1(330)2 Rolly, Dr. Dumont Referring Provider 1(330)2 Carloz DISPATCHER [place], DISPATCHER [place]UGBO[place]-C Carisa Attending Provider Dr. Yuko Lofton Primary Care Provider 1(33 0) Dr. Yuko Lofton Attending Provider 1(330)2 Dr. Yuko Lofton Referring Provider 1(330)2 Dr. Cole Ochoa Attending Provider [phone] Carloz DISPATCHER [place], DISPATCHER TUGBO[place]-C Carisa Referring Provider Dr. Yuko Lofton Primary Care Provider 1(33 0) Dr. Yuko Lofton Referring Provider 1(330)2 Dr. Cole Ochoa Attending Provider [phone] Dr. Yuko Lofton Attending Provider 1(330)2 Emilia MCKEON, LINDA Camilo Attending Provider LINDA Batista Attending Provider [phone] Rolly SPAULDING, Yuko Valente Primary Care Prov ider YUKO LOFTON Primary Care Unav ailROGER [place] Attending Unava ilSABINA [facility] YUKO Rehman Primary Care Unav ailable ROGER PUCKETT Referring Unava ilable CAMMIE, YORDY Attending Unavailable ROGER MOORE Admitting Unavailab le Rolly, Dr. Dumont Primary Care Provider [phone] Rolly, Dr. Dumont Attending Provider [phone])2 Rolly, Dr. Dumont Referring Provider [phone] Rolly, Dr. Dumont Primary Care Provider [phone] Rolly, Dr. Dumont Attending Provider [phone] Rolly, Dr. Dumont Referring Provider [phone])2 [place], Dr. Barnard Attending Provider Rolly SPAULDING, Yuko Valente Primary Care Prov ider Rolly SPAULDING, Yuko Valente Primary Care Prov ider Rolly SPAULDING, Dr. Dumont Primary Care Provider Rolly SPAULDING, Dr. Dumont Referring Provider [phone] Coleman Dial Attending Provider Rolly SPAULDING, Dr. Dumont Attending Provider [phone] Dr. Monet Amato DO Attending Provider Dr. Monet Amato DO Emergency Provider Santhosh Armendariz Attending Provider Santhosh Armendariz Referring Provider Rolly SPAULDING, Dr. Dumont Primary Care Provider Rolly SPAULDING, Dr. Dumont Referring Provider [phone] Carisa Crook Attending Provider Carisa Crook Referring Provider [phone] Rolly SPAULDING, Dr. Dumont Primary Care Provider Rolly SPAULDING, Dr. Dumont Referring Provider [phone] Santhosh Armendariz Attending Provider Rolly SPAULDING, Dr. Dumont Attending Provider [phone] Rolly SPAULDING, Yuko Velásquezdicta Primary Care Prov ider NATACHA HOROWITZ Attending Unavailable OLEGHE, EFEWONGBE YENI Primary Care Unav ailable SHELLEY RAMIREZ Attending Unavailable OLEGHE, EFEWONGBE YENI Primary Care Unav ailable BREANNA, IVORY C Attending Unavailable OLEGHE, EFEWONGBE YENI Primary Care Unav ailable BREANNA, IVORY C Referring Unavailable OLEGHE, EFEWONGBE YENI Primary Care Unav ailable CARLOS, IVORY C Referring Unavailable OLEGHE, EFEWONGBE YENI Primary Care Unav ailable CARLOS, IVORY C Attending Unavailable OLEGHE, EFEWONGBE YENI Primary Care Unav ailable CARLOS, IVORY C Attending Unavailable OLEGHE, EFEWONGBE YENI Primary Care Unav ailable CARLOS, IVORY C Referring Unavailable OLEGHE, EFEWONGBE YENI Primary Care Unav ailable SHELLEY RAMIREZ Attending Unavailable BREANNA, IVORY C Referring Unavailable OLEGHE, EFEWONGBE YENI Primary Care Unav ailable CARLOS, IVORY C Attending Unavailable OLEGHE, EFEWONGBE YENI Primary Care Unav ailable Rolly SPAULDING, Dr. Dumont Primary Care Provider Rolly SPAULDING, Dr. Dumont Referring Provider [phone] Bhavana SPAULDING, Dr. Carrero Attending Provider [phone] Oleghe, Efewongbe Primary Care Unavailable Oleghe, Efewongbe Referring Unavailable Santhosh Armendariz Attending Unavailable Oleghe, Efewongbe Attending Unavailable Oleghe, Efewongbe Primary Care Unavailable Oleghe, Efewongbe Referring Unavailable Oleghe, Efewongbe Primary Care Unavailable Oleghe, Efewongbe Referring Unavailable Coleman Dial Attending Unavailable Oleghe, Efewongbe Primary Care Unavailable Oleghe, Efewongbe Referring Unavailable Ludy Dao Attending Unavailabl e Oleghe, Efewongbe Referring Unavailable Oleghe, Efewongbe Attending Unavailable Oleghe, Efewongbe Primary Care Unavailable Oleghe, Efewongbe Referring Unavailable Oleghe, Efewongbe Attending Unavailable Oleghe, Efewongbe Primary Care Unavailable Oleghe, Efewongbe Primary Care Unavailable Donna MCKEON, Santhosh Attending Unavailable Donna MCKEON, Santhosh Referring Unavailable Oleghe, Efewongbe Primary Care Unavailable Monet Amato Attending Unavailable Carloz BARBER, Carisa Referring Unavailable Carloz BARBER, Carisa Attending Unavailable Oleghe, Efewongbe Primary Care Unavailable Oleghe, Efewongbe Primary Care Unavailable Donna MCKEON, Santhosh Attending Unavailable Donna MCKEON, Santhosh Referring Unavailable Donna MCKEON, Santhosh Attending Unavailable Oleghe, Efewongbe Primary Care Unavailable Donna MCKEON, Santhosh Referring Unavailable Oleghe, Efewongbe Attending Unavailable Oleghe, Efewongbe Primary Care Unavailable Oleghe, Efewongbe Referring Unavailable Oleghe, Efewongbe Referring Unavailable Oleghe, Efewongbe Attending Unavailable Oleghe, Efewongbe Primary Care Unavailable Oleghe, Efewongbe Referring Unavailable Oleghe, Efewongbe Attending Unavailable Oleghe, Efewongbe Primary Care Unavailable Oleghe, Efewongbe Referring Unavailable Carloz BARBER, Carisa Attending Unavailable Oleghe, Efewongbe Primary Care Unavailable Oleghe, Efewongbe Primary Care Unavailable Oleghe, Efewongbe Referring Unavailable Donna MCKEON, Santhosh Attending Unavailable Allergies Allergy Classification Reported Allergen(s) Allergy Type Date of Onset Reaction(s) Facility (20 sources) Sulfonamides (Antibiotic); Translations: [SULFA (SULFONAMIDE ANTIBIOTICS)] Propensity to adverse reactions 12-29-19 22 Rash, Swelling (15 sources) Lisinopril Drug Allergy 11-30-19 23 Cough (15 sources) Losartan Drug Allergy 11-30-19 23 [facility] (8 sources) pregabalin; Translations: [PREGABALIN] Drug Allergy 08-22-20 24 [facility] (7 sources) Nitrofurantoin Drug Allergy 01-07-20 Itching (1 source) Lisinopril Drug Allergy 08-15-20 Repository (1 source) Losartan Drug Allergy 08-15-20 Repository (1 source) Nitrofurantoin Drug Allergy 08-15-20 Repository Medications Current Medications Medication Drug Class(es) Dates Sig (Normalized) Sig (Original) acidophilos (20 sources) Start: 12-28-2021 take 1 tablet by mouth once daily acidophilos Active 1 TABLET PO DAILY December 28, 2021 2:03pm Start: 12-28-2021 acidophilos Ac tive PO December 28, 2021 2:03pm Start: 12-28-2021 End: 08-31-2022 acidophilos Discontinued 1 { tbl} PO DAILY 0 December 28, 2021 12:00am August 31, 2022 11:39am Start: 12-28-2021 End: 08-31-2022 acidophilos Discontinued 1 { tbl} PO DAILY December 28, 2021 12:00am August 31, 2022 11:39am Start: 12-28-2021 End: 08-31-2022 take 1 tablet by mouth once daily acidophilos Discontinued 1 TABLET PO DAILY December 28, 2021 12:00am August 31, 2022 11:39am Start: 12-28-2021 End: 08-31-2022 take 1 tablet by mouth once daily acidophilos Discontinued 1 TABLET PO DAILY December 27, 2021 11:00pm August 31, 2022 10:39am Start: 12-28-2021 take 1 tablet by julianna th once daily acidophilos Active 1 TABLET PO DAILY December 28, 2021 12:00am amLODIPine 5 mg oral tablet (20 sources) Dihydropyridine Calcium Channel Audrey Start: 05-19-2023 End: 09-26-2023 take 1 tablet by mouth once daily Amlodipine Active 0 .ROUTE .COMPLEX 90 May 19, 2023 12:15pm Take 1 tablet by mouth once daily Start: 11-30-2022 End: 06-02-2025 take 1 tablet by mouth once daily Amlodipine 5 mg tablet Active 0 .ROUTE .COMPLEX 90 June 02, 2025 4:22pm Take 1 tablet by mouth once daily take 1 tablet by julianna th once daily amLODIPine (NORVASC) 10 MG tablet Take 1 (one) tablet (10 mg total) by mouth daily . 0 Active ascorbic acid 500 mg oral capsule (20 sources) Vitamin C Start: 12-28-2021 Ascorbic Acid (Vitamin C) Active MG PO December 28, 2021 2:03pm Start: 12-28-2021 End: 08-31-2022 take 1 capsule by mouth once daily Ascorbic Acid (Vitamin C) 500 mg capsule Discontinued 500 mg PO DAILY December 28, 2021 12:00am August 31, 2022 11:39am Start: 01-02-2020 End: 01-20-2020 take 1 tablet by mouth once daily Ascorbic Acid (Vitamin C) 500 MG tablet Discontinued 500 mg PO DAILY@0800 January 02, 2020 12:00am January 20, 2020 10:05am supplement aspirin 81 mg chewable tablet (20 sources) Platelet Aggregation Inhibitor, Nonsteroidal Anti-inflammatory Drug Start: 01-02-2020 End: 09-26-2023 take 1 tablet by mouth once daily Aspirin 81 MG tablet,chewable Active 81 mg PO DAILY@0800 January 02, 2020 12:00am preventative atorvastatin 40 mg oral tablet (20 sources) HMG-CoA Reductase Inhibitor Start: 09-26-2023 End: 09-26-2023 take 10 mg by mouth once daily 10 mg, Oral, Daily, First dose on Mon09/26/23 at 0900 Start: 01-04-2020 End: 06-17-2025 take 1 tablet by mouth once daily at bedtime for hyperlipidemia atorvastatin (Lipitor) 40 mg tablet Take 1 tablet (40 mg) by mouth once daily at bedtime. for cholesterol 04/07/2024 Active Budesonide-Formoterol (14 sources) Corticosteroid, beta2-Adrenergic Agonist Start: 11-27-2024 Budesonide-Formoterol (Symbicort) 160-4.5 mcg/actuation HFA aerosol inhaler Active 2 NMA INHALATION TWICE A DAY 10.2 3 November 27, 2024 2:53pm Start: 11-27-2024 Budesonide-For moterol (Symbicort) 160-4.5 mcg/actuation HFA aerosol inhaler Active 2 NMA INHALATION TWICE A DAY 10.2 November 27, 2024 2:53pm Start: 08-13-2024 End: 11-27-2024 Budesonide-Formoterol (Symbi lesli) 160-4.5 mcg/actuation HFA aerosol inhaler Discontinued 2 NMA INHALATION TWICE A DAY 10.2 3 August 13, 2024 12:00am November 27, 2024 2:38pm Start: 08-13-2024 End: 11-27-2024 Budesonide-Formoterol (Symbi lesli) 160-4.5 mcg/actuation HFA aerosol inhaler Discontinued 2 NMA INHALATION TWICE A DAY 10.2 August 13, 2024 12:00am November 27, 2024 2:38pm calcium carbonate 1250 mg / cholecalciferol 200 unt oral tablet (11 sources) Vitamin D take 1 tablet by mouth once daily calcium carbonate-vitamin D3 500 mg-5 mcg (200 unit) tablet Take 1 tablet by mouth once daily. Active cholecalciferol 1.25 mg oral capsule (20 sources) Vitamin D Start: End: take 1 capsule by mouth every week Cholecalciferol (Vitamin D3) 1,250 mcg (50,000 unit) capsule Active 1250 ug PO EVERY WEEK 14 2 June 26, 2025 12:46pm Start: 01-02-2020 End: 01-20-2020 take 1 tablet by mouth once daily Cholecalciferol (Vitamin D3) 1,000 UNIT tablet Discontinued 1000 U PO DAILY January 02, 2020 12:00am January 20, 2020 10:05am supplement 30 actuat fluticasone furoate 0.1 mg/actuat / umeclidinium 0.0625 mg/actuat / vilanterol 0.025 mg/actuat dry powder inhaler (11 sources) Anticholinergic, Corticosteroid, beta2-Adrenergic Agonist fluticasone-umeclidi n-vilanter (Trelegy Ellipta) 100-62.5-25 mcg blister with device Inhale. Active furosemide 40 mg oral tablet (20 sources) Loop Diuretic Star t: 0607-05 25 take 1 tablet by mouth once daily Furosemide 40 mg tablet Active 40 mg PO daily 90 0 March 24, 2025 12:18pm Start: 03-24-2025 End: 03-24-2025 take 2 tablets by mouth every other day Furosemide 40 mg tablet Discontinued 40 mg PO every other day 90 0 March 24, 2025 12:06pm March 24, 2025 12:19pm 2 tabs a week Start: 03-04-2025 End: 03-24-2025 take 2 tablets by mouth once daily Furosemide 40 mg tablet Discontinued 40 mg PO daily March 04, 2025 1:17pm March 24, 2025 12:07pm Dieutic 2 tabs a week Start: 07-03-2024 take 1 tablet by julianna th two times weekly furosemide (Lasix) 40 mg tablet Take 1 tablet (40 mg) by mouth 2 times a week. 07/03/2024 Active Start: 06-17-2022 End: 03-04-2025 take 2 tablets by mouth every week Furosemide 40 mg tablet Discontinued 40 mg PO .2XWEEK 24 3 April 12, 2024 10:07am March 04, 2025 1:17pm Dieutic 2 tabs a week Start: 10-24-2020 End: 06-17-2022 take 1 tablet by mouth every week Furosemide 40 mg tablet Discontinued 40 mg PO .ONCE A WEEK May 24, 2022 10:55am June 17, 2022 10:46am Dieutic Start: 01-09-2020 End: 05-24-2022 take 1 tablet by mouth once daily Furosemide 40 mg tablet Discontinued 40 mg PO DAILY 90 3 February 23, 2020 9:23am October 24, 2020 1:36pm nitroglycerin 0.4 mg sublingual tablet (20 sources) Nitrate Vasodilator Start: 04-11-2024 nitroglyce rin (Nitrostat) 0.4 mg SL tablet DISSOLVE ONE [...] 09-26-2023 nitroGLYCERIN (NITROSTAT) SL tablet 0.4 mg Start: 02-21-2020 End: 04-11-2024 Nitroglycerin 0.4 mg tablet, sublingual Discontinued 0.4 mg SL every 5 to 15 minutes as needed for chest pain 07 01October 03, 2022 3:59pm April 20, 2023 10:09am do not exceed 3 doses per episode Start: 02-21-2020 End: 04-20-2023 Nitroglycerin Discontinued 0 .4 MG SL every 5 to 15 minutes October 03, 2022 3:59pm April 20, 2023 10:09am do not exceed 3 doses per episode apply 0.4 mg transde rmal route every hour nitroGLYCERIN (NITRODUR) 0.4 mg/hr Place 1 (one) patch on the skin daily Patient states she's taking pills, not patches . 0 Active pantoprazole 40 mg delayed release oral tablet (20 sources) Proton Pump Inhibitor Start: 03-24-2025 take 1 tablet by mouth once daily Pantoprazole (Protonix) 40 mg tablet,delayed release (DR/EC) Active 40 mg PO daily 90 March 24, 2025 12:00am Start: 08-03-2022 End: 10-26-2022 take 1 tablet by mouth once daily 30 minutes before breakfast Pantoprazole 40 mg tablet,delayed release (DR/EC) Discontinued 40 mg PO DAILY 90 August 03, 2022 12:00am October 26, 2022 11:33am Take 30 minutes before breakfast on an empty stomach pregabalin 25 mg oral capsule (4 sources) Start: 07-25-2024 End: 08-22-2024 take 1 capsule by mouth twice daily pregabalin (Lyrica) 25 mg capsule Indications: Cervical neuritis , Chronic left shoulder pain Take 1 capsule (25 mg) by mouth 2 times a day. 60 capsule 1 07/25/2024 08/22/2024 Discontinued (Side effects) Completed/Discontinued Medications Medication Drug Class(es) Dates Sig (Normalized) Sig (Original) acetaminophen 325 mg oral tablet (12 sources) Start: 09-26-2023 End: 09-26-2023 take 1 [...] PLUS) 200-200-20 mg/5 mL suspension 30 mL amoxicillin 500 mg oral tablet (20 sources) Penicillin-class Antibacterial Start: 07-22-2017 End: 04-15-2019 take 1 tablet by mouth three times daily Amoxicillin 500 MG tablet Discontinued 500 mg PO THREE TIMES A DAY 30 0 July 22, 2017 12:00am April 15, 2019 2:42pm 1 ml atropine sulfate 1 mg/ml injection (1 source) Anticholinergic, Cholinergic Muscarinic Antagonist Start: 09-26-2023 End: 09-26-2023 1 mg, Intravenous, As needed, SINGLE DOSE for bradycardia (HR less than 50), complete heart block, or escape rhythms with symptoms of hemodynamic compromise, Starting on Mon09/26/23 at 0103 [] NOTIFY PHYSICIAN, and request patient transfer to cardiac unit if not already there. [ ] If patient has history of glaucoma, notify physician before administering Atropine, if condition allows. bisacodyl 10 mg rectal suppository (1 source) Stimulant Laxative Start: 09-26-2023 End: 09-26-2023 bisacodyL (DULCOLAX) suppository 10 mg carvedilol 6.25 mg oral tablet (20 sources) alpha-Adrenergic Audrey, beta-Adrenergic Audrey Start: 09-02-2020 End: 09-02-2020 take 1 tablet by mouth once daily Carvedilol 6.25 mg tablet Discontinued 6.25 mg PO DAILY September 02, 2020 2:17pm September 02, 2020 2:55pm Start: 01-04-2020 End: 09-02-2020 take 1 tablet by mouth twice daily Carvedilol 6.25 mg tablet Discontinued 6.25 mg PO TWICE A DAY 180 3 February 23, 2020 9:23am September 02, 2020 2:18pm cephalexin 500 mg oral capsule (20 sources) Cephalosporin Antibacterial Start: 12-02-2024 End: 12-13-2024 take 1 capsule by mouth every twelve hours Cephalexin 500 mg capsule Discontinued 500 mg PO EVERY 12 HOURS 14 December 02, 2024 1:00am December 13, 2024 1:50pm Start: 02-29-2024 End: 03-07-2024 take 1 capsule by mouth every twelve hours Cephalexin 500 mg capsule Discontinued 500 mg PO Q12H 14 7 February 29, 2024 12:00am March 06, 2024 12:00am March 07, 2024 12:04am Start: 05-30-2022 End: 06-17-2022 take 1 tablet by mouth three times daily Cephalexin 500 mg tablet Discontinued 500 mg PO THREE TIMES A DAY 21 May 30, 2022 12:00am June 17, 2022 8:39am ciprofloxacin 500 mg oral tablet (20 sources) Quinolone Antimicrobial Start: 01-06-2025 End: 03-04-2025 take 1 tablet by mouth twice daily Ciprofloxacin Hcl (Cipro) 500 mg tablet Discontinued 500 mg PO TWICE A DAY 14 January 06, 2025 12:00am March 04, 2025 1:17pm Start: 01-04-2025 End: 01-06-2025 take 1 tablet by mouth twice daily Ciprofloxacin Hcl 250 mg tablet Discontinued 250 mg PO TWICE A DAY 10 January 04, 2025 12:00am January 06, 2025 10:22am Start: 03-01-2024 End: 03-15-2024 take 1 tablet by mouth twice daily Ciprofloxacin Hcl (Cipro) 500 mg tablet Discontinued 500 mg PO TWICE A DAY 20 March 01, 2024 12:00am March 15, 2024 12:42pm Start: 06-17-2022 End: 08-03-2022 take 1 tablet by mouth twice daily Ciprofloxacin Hcl 500 mg tablet Discontinued 500 mg PO TWICE A DAY 10 June 17, 2022 12:00am August 03, 2022 8:48am clopidogrel 75 mg oral tablet (20 sources) P2Y12 Platelet Inhibitor Start: 01-20-2020 End: 09-11-2024 take 1 tablet by mouth once daily Clopidogrel 75 mg tablet Discontinued 75 mg PO DAILY 90 January 22, 2024 2:28pm September 11, 2024 11:24am Heart D-Mannose (20 sources) Start: 08-03-2022 End: 05-10-2023 take 1 capsule by mouth once daily as needed, then take 1 capsule by mouth once as needed D-Mannose (Azo D-Mannose) 500 mg capsule Discontinued 500 mg PO DAILY as needed August 03, 2022 8:49am May 10, 2023 10:11am Start: 08-03-2022 End: 05-10-2023 take 1 capsule by mouth once daily, then take 1 capsule by mouth once D-Mannose (Azo D-Mannose) 500 mg capsule Discontinued 500 MG PO DAILY August 03, 2022 7:49am May 10, 2023 9:11am Start: 08-03-2022 End: 05-10-2023 take 1 capsule by mouth once daily, then take 1 capsule by mouth once D-Mannose (Azo D-Mannose) 500 mg capsule Discontinued 500 MG PO DAILY August 03, 2022 8:49am May 10, 2023 10:11am Start: 08-03-2022 take 1 capsule by mo [facility] once daily, then take 1 capsule by mouth once D-Mannose (Azo D-Mannose) 500 mg capsule Active 500 MG PO DAILY August 03, 2022 8:49am Start: 08-03-2022 take 1 capsule by mo [facility] once daily, then take 1 capsule by mouth once D-Mannose (Azo D-Mannose) 500 mg capsule Active 500 MG PO DAILY August 03, 2022 7:49am Start: 12-28-2021 take 1 capsule by mo [facility] once daily, then take 1 capsule by mouth once D-Mannose (Azo D-Mannose) 500 mg capsule Active 500 MG PO DAILY December 28, 2021 2:03pm Start: 12-28-2021 take 1 mg by mouth once D-Varela ose (Azo D-Mannose) 500 mg capsule Active MG PO December 28, 2021 2:03pm Start: 12-28-2021 End: 08-03-2022 take 1 capsule by mouth once daily, then take 1 capsule by mouth once D-Mannose (Azo D-Mannose) 500 mg capsule Discontinued 500 mg PO DAILY December 28, 2021 12:00am August 03, 2022 8:51am Start: 12-28-2021 End: 08-03-2022 take 1 capsule by mouth once daily, then take 1 capsule by mouth once D-Mannose (Azo D-Mannose) 500 mg capsule Discontinued 500 MG PO DAILY December 28, 2021 12:00am August 03, 2022 8:51am Start: 12-28-2021 End: 08-03-2022 take 1 capsule by mouth once daily, then take 1 capsule by mouth once D-Mannose (Azo D-Mannose) 500 mg capsule Discontinued 500 MG PO DAILY December 27, 2021 11:00pm August 03, 2022 7:51am Start: 12-28-2021 take 1 capsule by mo [facility] once daily, then take 1 capsule by mouth once D-Mannose (Azo D-Mannose) 500 mg capsule Active 500 MG PO DAILY December 28, 2021 12:00am dexamethasone 6 mg oral tablet (11 sources) Corticosteroid Start: 06-16-2023 End: 08-11-2023 take 1 tablet by mouth once daily Dexamethasone 6 mg tablet Discontinued 6 mg PO DAILY 5 June 16, 2023 12:00am August 11, 2023 11:19am docusate sodium 50 mg / sennosides, custodial 8.6 mg oral tablet (1 source) Start: 09-26-2023 End: 09-26-2023 senna-docusate (SENNA-S) 8.6-50 mg per tablet 1 tablet doxepin hydrochloride 10 mg oral capsule (14 sources) Tricyclic Antidepressant Start: 11-27-2024 End: 03-24-2025 take 1 tablet by mouth at bedtime as needed for sleep Doxepin 6 mg tablet Discontinued 6 mg PO AT BEDTIME as needed for sleep 30 1 November 27, 2024 1:00am March 24, 2025 10:23am Start: 11-27-2024 End: 11-27-2024 take 1 capsule by mouth at bedtime as needed Doxepin 10 mg capsule Discontinued 10 mg PO AT BEDTIME as needed for insomnia 30 2 November 27, 2024 1:00am November 27, 2024 10:35pm empagliflozin 10 mg oral tablet (17 sources) Sodium-Glucose Cotransporter 2 Inhibitor Start: 09-13-2022 End: 02-06-2023 take 1 tablet by mouth once daily Empagliflozin (Jardiance) 10 mg tablet Discontinued 10 mg PO DAILY 30 September 13, 2022 1:00am February 06, 2023 1:01pm 0.4 ml enoxaparin sodium 100 mg/ml prefilled syringe (1 source) Low Molecular Weight Heparin Start: 09-26-2023 End: 09-26-2023 inject 40 mg by subcutaneous injection once daily 40 mg, Subcutaneous, Daily, First dose on Mon09/26/23 at 0900 Administer in abdomen unless otherwise directed by prescriber. Notify physician if patient refuses. Indication: VTE Prophylaxis 24 hr fesoterodine fumarate 4 mg extended release oral tablet (11 sources) Start: 08-11-2023 End: 01-29-2024 take 1 tablet by mouth once daily Fesoterodine 4 mg tablet extended release 24 hr Discontinued 4 mg PO DAILY August 11, 2023 12:00am January 29, 2024 10:26am 30 actuat fluticasone furoate 0.1 mg/actuat / vilanterol 0.025 mg/actuat dry powder inhaler (20 sources) Corticosteroid, beta2-Adrenergic Agonist Start: 04-15-2019 End: 07-23-2019 Fluticasone Furoate-Vilantero l (Breo Ellipta) 100-25 mcg/dose blister with device Discontinued 1 NMA INHALATION DAILY April 15, 2019 12:00am July 23, 2019 1:12pm Start: 04-15-2019 End: 07-23-2019 Fluticasone Furoate-Vilanter ol (Breo Ellipta) 100-25 mcg/dose blister with device Discontinued 1 INH INHALATION DAILY April 15, 2019 12:00am July 23, 2019 1:12pm gabapentin 100 mg oral capsule (20 sources) Anti-epileptic Agent Start: 06-19-2022 End: 08-31-2022 take 1 capsule by mouth twice daily as needed for pain Gabapentin 100 mg capsule Discontinued 100 mg PO TWICE A DAY as needed for pain 20 0 June 19, 2022 2:59am August 31, 2022 11:52am Radiculopathy affecting upper extremity Radiculopathy, site unspecified hydroCHLOROthiazide 12.5 mg / losartan potassium 50 mg oral tablet (20 sources) Thiazide Diuretic, Angiotensin 2 Receptor Audrey Start: 07-22-2017 End: 04-15-2019 Losartan-Hydrochlo rothiazide 1 EACH tablet Discontinued 1 NMA PO DAILY July 22, 2017 12:00am April 15, 2019 2:43pm Start: 07-22-2017 End: 04-15-2019 Losartan-Hydrochlorothiazide Discontinued 1 EACH PO DAILY July 22, 2017 12:00am April 15, 2019 2:43pm iohexol (OMNIPaque) 300 mg iodine/mL solution 3 mL (2 sources) Start: 10-25-2024 End: 10-25-2024 3 mL, miscellaneous, Once in OR, Starting on Mon10/25/24 at 1345, For 1 dose, Intraprocedure iopamidoL (ISOVUE-370) 370 m g iodine /mL (76 %) injection 75 mL (1 source) Start: 09-26-2023 End: 09-26-2023 iopamidoL (ISOVUE-370) 370 m g iodine /mL (76 %) injection 75 mL lactobacillus acidophilus [id number] unt oral capsule (18 sources) Start: 03-01-2024 End: 11-27-2024 Lactobacillus Acidophilus 50 0 million cell capsule Discontinued [id number] NMA PO March 01, 2024 12:00am November 27, 2024 2:39pm Start: 01-05-2024 Acidophilus ca psule TAKE 1 CAPSULE BY MOUTH ONCE DAILY FOR 90 DAYS. TAKE 3 HOURS APART FROM ANY ANTIBIOTICS 01/05/2024 Active lansoprazole 30 mg delayed release oral capsule (9 sources) Proton Pump Inhibitor Start: 01-29-2024 End: 04-11-2024 take 1 capsule by mouth once daily Lansoprazole 30 mg capsule,delayed release(DR/EC) Discontinued 30 mg PO DAILY 60 2 January 29, 2024 12:00am April 11, 2024 9:50am levoFLOXacin 750 mg oral tablet (20 sources) Quinolone Antimicrobial Start: 01-04-2020 End: 01-20-2020 take 1 tablet by mouth once daily Levofloxacin 750 MG tablet Discontinued 750 mg PO DAILY@0600 4 0 January 04, 2020 12:00am January 20, 2020 10:04am 10 ml lidocaine hydrochloride 20 mg/ml injection (2 sources) Antiarrhythmic, Amide Local Anesthetic Start: 10-25-2024 End: 10-25-2024 120 mg (6 mL), infiltration, Once, On Mon10/25/24 at 1400, For 1 dose, Intraprocedure Start: 10-25-2024 End: 10-25-2024 120 mg (6 mL), infiltration, Once, On 1/10/25 at 1400, For 1 dose, Intraprocedure lisinopril 2.5 mg oral tablet (20 sources) Angiotensin Converting Enzyme Inhibitor Start: 01-04-2020 End: 04-24-2020 take 1 tablet by mouth once daily Lisinopril 2.5 mg tablet Discontinued 2.5 mg PO DAILY 90 3 February 23, 2020 9:24am April 24, 2020 9:47am losartan potassium 50 mg oral tablet (20 sources) Angiotensin 2 Receptor Audrey Start: 09-12-2022 End: 11-30-2022 take 1 tablet by mouth twice daily Losartan 50 mg tablet Discontinued 50 mg PO TWICE A DAY 180 3 September 12, 2022 4:24pm November 30, 2022 11:19am this is a dose increase Start: 12-28-2021 End: 09-12-2022 take 1 tablet by mouth once daily Losartan 50 mg tablet Discontinued 50 mg PO DAILY 90 2 December 28, 2021 2:51pm September 12, 2022 4:25pm BP Start: 09-02-2020 End: 12-28-2021 take 1 tablet by mouth once daily Losartan 25 mg tablet Discontinued 25 mg PO DAILY September 02, 2020 1:00am December 28, 2021 2:51pm BP Start: 04-24-2020 End: 09-02-2020 take 1 tablet by mouth once daily Losartan 50 mg tablet Discontinued 50 mg PO DAILY 30 April 24, 2020 12:00am September 02, 2020 2:16pm magnesium hydroxide 80 mg/ml oral suspension (1 source) Start: 09-26-2023 End: 09-26-2023 magnesium hydroxide (MOM) 400 mg/5 mL suspension 2,400 mg melatonin 3 mg oral tablet (1 source) Start: 09-26-2023 End: 09-26-2023 melatonin tablet 3 mg methocarbamol 500 mg oral tablet (20 sources) Muscle Relaxant Start: 06-19-2022 End: 10-26-2022 take 1 tablet by mouth four times daily as needed for pain Methocarbamol 500 mg tablet Discontinued 500 mg PO 4 TIMES DAILY NEEDED as needed for Muscle pain/spasm 40 10 0 June 19, 2022 2:59am October 26, 2022 11:32am 1 ml methylPREDNISolone acetate 40 mg/ml injection (4 sources) Corticosteroid Start: 10-25-2024 End: 10-25-2024 As needed, Starting on Mon10/25/24 at 1327, Intraprocedure Start: 08-22-2024 End: 10-03-2024 methylPREDNISolone (Medrol D ospak) 4 mg tablets Indications: Chronic left shoulder pain Follow schedule on package instructions 21 tablet 08/22/2024 10/03/2024 Discontinued (Therapy completed) Start: 08-22-2024 methylPREDNISo lone (Medrol Dospak) 4 mg tablets Indications: Chronic left shoulder pain Follow schedule on package instructions 21 tablet 08/22/2024 Active 24 hr metoprolol succinate 50 mg extended release oral tablet (20 sources) beta-Adrenergic Audrey Start: 09-02-2020 End: 09-11-2024 take 1 tablet by mouth once daily Metoprolol Succinate 50 mg tablet extended release 24 hr Discontinued 50 mg PO DAILY 90 3 January 05, 2024 9:06am September 11, 2024 11:24am take 50 mg by mouth once daily [...] End: 09-26-2023 naloxone (NARCAN) injection 0.1 mg nitrofurantoin, macrocrystals 25 mg / nitrofurantoin, monohydrate 75 mg oral capsule (7 sources) Nitrofuran Antibacterial Start: 01-03-2025 End: 01-04-2025 take 1 capsule by mouth every twelve hours at mealtime Nitrofurantoin Monohyd/M-Cryst (Macrobid) 100 mg capsule Discontinued 100 mg PO Q12H 14 7 0 January 03, 2025 12:00am January 09, 2025 12:00am January 04, 2025 11:17am must administer with a meal/food ondansetron (ZOFRAN-ODT) disintegrating tablet 4 mg (1 [...] total ML OF MIXTURE given to patient. polyethylene glycol 3350 62287 mg powder for oral solution (20 sources) Osmotic Laxative Start: 12-28-2021 End: 05-24-2022 Polyethylene Glycol 3350 (Miralax) 17 gram/dose powder Discontinued 17 g PO DAILY as needed for STOOL SOFTENER December 28, 2021 12:00am May 24, 2022 10:55am Start: 01-02-2020 End: 01-20-2020 Polyethylene Glycol 3350 17 GM packet Discontinued 0.5 NMA PO DAILY January 02, 2020 12:00am January 20, 2020 10:06am constipation potassium chloride 10 meq extended release oral capsule (20 sources) Start: 01-09-2020 End: 02-23-2020 take 1 capsule by mouth once daily Potassium Chloride 10 mEq capsule, extended release Discontinued 10 meq PO DAILY 30 3 January 09, 2020 12:00am February 23, 2020 9:25am predniSONE 20 mg oral tablet (7 sources) Start: 12-02-2024 End: 12-13-2024 take 2 tablets by mouth once daily Prednisone 20 mg tablet Discontinued 40 mg PO DAILY 10 0 December 02, 2024 1:00am December 13, 2024 1:51pm sennosides, custodial 8.6 mg oral tablet (1 source) Start: 09-26-2023 End: 09-26-2023 senna (SENOKOT) tablet 8.6 mg simvastatin 40 mg oral tablet (20 sources) HMG-CoA Reductase Inhibitor Start: 07-22-2017 End: 01-04-2020 take 1 tablet by mouth once daily Simvastatin 40 MG tablet Discontinued 40 mg PO DAILY July 22, 2017 12:00am January 04, 2020 10:44am cholesterol spironolactone 25 mg oral tablet (20 sources) Aldosterone Antagonist Start: 01-20-2020 End: 02-23-2020 take 1 tablet by mouth once daily Spironolactone 25 mg tablet Discontinued 25 mg PO DAILY January 20, 2020 12:00am February 23, 2020 9:25am Start: 01-04-2020 End: 01-05-2020 take 1 tablet by mouth once daily Spironolactone 25 MG tablet Discontinued 25 mg PO DAILY 30 1 January 04, 2020 12:00am January 04, 2020 12:00am January 05, 2020 12:08am ticagrelor 90 mg oral tablet (20 sources) Start: 01-04-2020 End: 01-20-2020 take 1 tablet by mouth twice daily Ticagrelor 90 MG tablet Discontinued 90 mg PO TWICE A DAY 60 1 January 04, 2020 12:00am January 20, 2020 11:30am traZODone hydrochloride 50 mg oral tablet (12 sources) Serotonin Reuptake Inhibitor Start: 08-11-2023 End: 04-11-2024 take 1 tablet by mouth at bedtime as needed Trazodone 50 mg tablet Discontinued 50 mg PO AT BEDTIME as needed for insomnia 30 August 11, 2023 12:00am April 11, 2024 9:50am Triamterene/Hydrochl orothiazid (Triamterene-Hctz 37.5-25 Mg Cp) 1 EACH capsule (20 sources) Start: 01-02-2020 End: 01-04-2020 Triamterene/Hydroc hlorothiazid (Triamterene-Hctz 37.5-25 Mg Cp) 1 EACH capsule Discontinued 1 CAP PO DAILY January 02, 2020 7:52am January 04, 2020 11:15am Start: 01-02-2020 End: 01-04-2020 take 1 capsule by mouth once daily Triamterene/Hydrochlorothiazid (Triamterene-Hctz 37.5-25 Mg Cp) 1 EACH capsule Discontinued 1 NMA PO DAILY January 02, 2020 12:00am January 04, 2020 11:15am blood pressure Start: 01-02-2020 End: 01-04-2020 take 1 capsule by mouth once daily Triamterene/Hydrochlorothiazid (Triamterene-Hctz 37.5-25 Mg Cp) 1 EACH capsule Discontinued 1 NMA PO DAILY January 02, 2020 12:00am January 04, 2020 11:15am Start: 01-02-2020 End: 01-04-2020 Triamterene/Hydrochlorothiaz id (Triamterene-Hctz 37.5-25 Mg Cp) 1 EACH capsule Discontinued 1 CAP PO DAILY January 01, 2020 11:00pm January 04, 2020 10:15am Start: 01-02-2020 End: 01-04-2020 Triamterene/Hydrochlorothiaz id (Triamterene-Hctz 37.5-25 Mg Cp) 1 EACH capsule Discontinued 1 CAP PO DAILY January 02, 2020 12:00am January 04, 2020 11:15am 7 actuat umeclidinium 0.0625 mg/actuat / vilanterol 0.025 mg/actuat dry powder inhaler (20 sources) Anticholinergic, beta2-Adrenergic Agonist Start: 01-02-2020 End: 06-01-2020 take 1 dose by inhalation once daily Umeclidinium-Vilanterol 1 EACH blister with device Discontinued 1 NMA IH DAILY January 02, 2020 12:00am June 01, 2020 2:06pm copd Problems Active Problems Problem Classification Problem Date Documented Da te Episodic/Chronic Acute myocardial infarction (20 sources) Myocardial infarction; Translations: [Non-ST elevation (NSTEMI) myocardial infarction] 09-13-2021 Chronic Cataract (20 sources) Bilateral cataracts; Translations: [Unspecified cataract] 12-28-2021 Chronic Chronic obstructive pulmonary disease and bronchiectasis (20 sources) Moderate chronic obstructive pulmonary disease; Translations: [Chronic obstructive pulmonary disease, unspecified] 07-23-2019 Chronic Comment on above: FEV1 67% Congestive heart failure; nonhypertensive (15 sources) Congestive heart failure; Translations: [Heart failure, unspecified] 02-06-2023 Chronic Coronary atherosclerosis and other heart disease (20 sources) History of non-ST segment elevation myocardial infarction; Translations: [Old myocardial infarction] Onset: 0 Chronic Coronary atherosclerosis and other heart disease (20 sources) Presence of coronary angioplasty implant and graft; Translations: [Percutaneous transluminal coronary angioplasty status] Episodic Diseases of mouth; excluding dental (15 sources) Xerostomia; Translations: [Dry mouth, unspecified] 11-21-2022 Episodic Disorders of lipid metabolism (20 sources) Hyperlipidemia; Translations: [Hyperlipidemia, unspecified] Onset: 5 Chronic Esophageal disorders (10 sources) Gastroesophageal reflux disease; Translations: [Gastro-esophageal reflux disease without esophagitis] 03-15-2024 Chronic Essential hypertension (20 sources) Essential hypertension; Translations: [Essential (primary) hypertension] Onset: 5 Chronic Fluid and electrolyte disorders (15 sources) Dehydration; Translations: [Dehydration] 11-21-2022 Episodic Immunizations and screening for infectious disease (20 sources) Needs influenza immunization; Translations: [Encounter for immunization] Episodic Influenza (12 sources) Influenza due to Influenza A virus; Translations: [Influenza due to other identified influenza virus with other respiratory manifestations] 12-10-2024 Episodic Nonmalignant breast conditions (20 sources) Breast lump; Translations: [Unspecified lump in the right breast, unspecified quadrant] 12-01-2023 Episodic Nonspecific chest pain (20 sources) Chest pain; Translations: [Chest pain, unspecified] Onset: 3 Episodic Osteoarthritis (20 sources) Arthritis; Translations: [Unspecified osteoarthritis, unspecified site] Onset: 4 Chronic Osteoporosis (20 sources) Osteoporosis; Translations: [Age-related osteoporosis without current pathological fracture] Chronic Other connective tissue disease (20 sources) Spasm; Translations: [Other muscle spasm] 06-27-2022 Episodic Other connective tissue disease (15 sources) Cramp in lower limb; Translations: [Cramp and spasm] 11-21-2022 Episodic Other connective tissue disease (15 sources) Foot pain; Translations: [Pain in right foot] 10-26-2022 Episodic Other connective tissue disease (3 sources) Pain in right foot; Translations: [Pain in limb] 10-26-2022 Episodic Other connective tissue disease (1 source) Trochanteric bursitis of right hip; Translations: [Trochanteric bursitis, right hip] 11-14-2024 Episodic Other ear and sense organ disorders (13 sources) Otalgia, right ear; Translations: [Right ear pain] 08-11-2023 Episodic Other eye disorders (7 sources) Pain in eye; Translations: [Ocular pain, right eye] 05-27-2024 Episodic Other gastrointestinal disorders (9 sources) Dysphagia; Translations: [Dysphagia, unspecified] 01-29-2024 Episodic Other gastrointestinal disorders (2 sources) Dysphagia, unspecified; Translations: [Dysphagia, unspecified] 01-29-2024 Episodic Other hereditary and degenerative nervous system conditions (7 sources) Blepharospasm; 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] 05-27-2024 Chronic Other lower respiratory disease (20 sources) Dyspnea; Translations: [Dyspnea, unspecified] 12-16-2021 Episodic Other lower respiratory disease (20 sources) Nodule of lung; Translations: [Solitary pulmonary nodule] 01-02-2020 Episodic Other lower respiratory disease (7 sources) Dyspnea, unspecified; Translations: [Other respiratory abnormalities] Episodic Other lower respiratory disease (18 sources) Cough; Translations: [Cough] 01-29-2024 Episodic Other lower respiratory disease (12 sources) Dyspnea on exertion; Translations: [Other forms of dyspnea] 04-11-2024 Episodic Other lower respiratory disease (7 sources) Chronic cough; Translations: [Chronic cough] 07-22-2024 Episodic Other nervous system disorders (2 sources) Other chronic pain; Translations: [Other chronic pain] Onset: 4 Chronic Other non-traumatic joint disorders (8 sources) Arthritis of right hip 10-03-2024 Chronic Other non-traumatic joint disorders (9 sources) Shoulder pain; Translations: [Pain in left shoulder] 06-22-2022 Episodic Other non-traumatic joint disorders (20 sources) Pain in left shoulder; Translations: [Pain in joint, shoulder region] Onset: 4 Episodic Other non-traumatic joint disorders (20 sources) Hip pain; Translations: [Pain in right hip] Onset: 4 10-03-2024 Episodic Other non-traumatic joint disorders (2 sources) Pain in right hip; Translations: [Pain in right hip] Onset: 4 Episodic Other nutritional; endocrine; and metabolic disorders (1 source) Obesity; Translations: [Obesity, unspecified] 04-30-2025 Chronic Other nutritional; endocrine; and metabolic disorders (2 sources) Body mass index 25-29 - overweight; Translations: [Overweight] 07-16-2025 Episodic Other screening for suspected conditions (not mental disorders or infectious disease) (20 sources) Patient encounter status; Translations: [Encounter for screening for malignant neoplasm of colon] Episodic Other upper respiratory disease (18 sources) Hoarse; Translations: [Dysphonia] 08-03-2022 Episodic Other upper respiratory disease (8 sources) Dysphonia; Translations: [Dysphonia] Episodic Residual codes; unclassified (20 sources) Obstructive sleep apnea syndrome; Translations: [Obstructive sleep apnea (adult) (pediatric)] 01-02-2020 Chronic Comment on above: Noncompliant with th erapy Residual codes; unclassified (20 sources) Periodic limb movement disorder; Translations: [Periodic limb movement disorder] 09-13-2021 Chronic Residual codes; unclassified (6 sources) Periodic leg movements of sleep ; Translations: [Periodic limb movement disorder] 09-13-2021 Chronic Residual codes; unclassified (16 sources) Insomnia; Translations: [Insomnia, unspecified] 08-11-2023 Episodic Residual codes; unclassified (5 sources) Insomnia, unspecified; Translations: [Insomnia, unspecified] 08-11-2023 Episodic Retinal detachments; defects; vascular occlusion; and retinopathy (20 sources) Thrombosis of retinal artery; 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] Onset: 1 12-03-2021 Chronic Screening and history of mental health and substance abuse codes (20 sources) Ex-smoker; Translations: [Personal history of nicotine dependence] Episodic Comment on above: QUIT 1997 Spondylosis; intervertebral disc disorders; other back problems (14 sources) Inflammation of sacroiliac joint; Translations: [Sacroiliitis, not elsewhere classified] Onset: 4 03-27-2024 Chronic Sprains and strains (8 sources) Injury of abdominal wall; Translations: [Strain of muscle, fascia and tendon of abdomen, initial encounter] 09-24-2024 Episodic Unclassified (4 sources) Obstructive sleep apnea (adult) (pediatric); Translations: [Periodic limb movement disorder] Onset: 8 Chronic Unclassified (1 source) Cough, unspecified; Translations: [Cough, unspecified] Onset: 5 Viral infection (12 sources) Disease caused by 2019-nCoV; Translations: [COVID-19] 06-16-2023 Episodic Past or Other Problems Problem Classification Problem Date Documented Da te Episodic/Chronic Abdominal pain (20 sources) Right flank pain; Translations: [Unspecified abdominal pain] Onset: 02-05-2025 Episodic Genitourinary symptoms and ill-defined conditions (20 sources) Abnormal urinalysis; Translations: [Unspecified abnormal findings in urine] Onset: 01-06-2025 11-21-2022 Episodic Malaise and fatigue (20 sources) Fatigue; Translations: [Other fatigue] Onset: 03-27-2024 Episodic Other lower respiratory disease (1 source) Other forms of dyspnea; Translations: [Other forms of dyspnea] Onset: 03-11-2025 Episodic Other non-traumatic joint disorders (16 sources) Chronic pain of left upper limb; Translations: [Pain in left shoulder] Onset: 07-25-2024 07-25-2024 Episodic Residual codes; unclassified (12 sources) Procedure not done; Translations: [Procedure and treatment not carried out due to patient leaving prior to being seen by health care provider] Onset: 07-24-2024 07-24-2024 Episodic Residual codes; unclassified (2 sources) Pain; Translations: [Pain] Onset: 07-24-2024 Episodic Spondylosis; intervertebral disc disorders; other back problems (20 sources) Nerve root disorder; Translations: [Radiculopathy, site unspecified] Onset: 07-25-2024 Episodic Unclassified (11 sources) Onset: 03-27-2024 Resolved: 10-25-2024 03-27-2024 Urinary tract infections (20 sources) Urinary tract infectious disease; Translations: [Urinary tract infection, site not specified] Onset: 01-14-2025 06-13-2022 Episodic Results Test Name Value Interpretation Reference Range Facility Internal Medicine Office Vis itobob 08-15-2025 Internal Medicine Office Visit [facility] Internal Medicine [address] [place] [address] OFFICE VISIT Date of Service: 08/15/25 MR#: [id number] Acct: [id number] Name: DAHLIA SILVERMAN Rep #: [id number] : 1945 Provider: Dr. Yuko jewell MD Age/Sex: 80/F Location: [facility] Status: Signed with Addenda ADDENDUM by Melissa Trevino on 08/15/25 at 1534 Office Procedure Documentation entered by Melissa Trevino 08/15/25 15:34: Immunizations Prevnar 20 (PF) 0.5 mL intramuscular syringe Performing Provider: Yuko Lofton MD Performing Location: [facility] Administered by: Melissa Trevino on 08/15/25 15:32 Dose Route Admin Location Dispensed Lot Number Expiration Date Package NDC NDC [address] Supervisor 0.5 mL IM Right Arm (SQ) 0.5 mL [id number] 06/16/26 8837-0821-61 [id number] [employer] VIS Given Date VIS Provided VIS Publication Date 08/15/25 Single Vaccine 25 Eligibility Eligibility Date Funding Source Not Applicable Administration Comments: radha injection given patient tolerated well Date cc: * Signed ADDENDUM by Melissa Trevino on 08/15/25 at 1532 Office Procedure Documentation entered by Melissa Trevino 08/15/25 15:32: Immunizations Fluad 2024- 65yr up(PF)45 mcg(15 mcgx3)/0.5 mL intramuscular syringe Performing Provider: Yuko Lofton MD Performing Location: [facility] Administered by: Melissa Trevino on 08/15/25 15:31 Dose Route Admin Location Dispensed Lot Number Expiration Date Package ND NDC [address] Supervisor 45 mcg IM Left Arm (SQ) 0.5 mL [id number] 02/10/26 [id number] [employer] VIS Given Date VIS Provided VIS Publication Date 08/15/25 Single Vaccine 24 Eligibility Eligibility Date Funding Source Not Applicable Administration Comments: cortney injection given patient tolerated well Date cc: * Signed Intake Vital Signs 06/30/25 11:03 08/15/25 14:14 Height 5 ft 4 in 5 ft 4 in Weight: 170 lb BMI 29.2 BP 134/60 H Blood Pressure Location Lt brachial Position Sitting Respiration 16 Pulse 68 Pulse Source Monitor Temp 98.4 F Temp Source Temporal Pulse Oximetry (%) 96 Oxygen Delivery Method room air Intake Visit Reasons: Phlegm in throat + Flu Shot Chief Complaint: PHLEGM IN THROAT, FLU SHOT Is patient in pain?: No Allergies nitrofurantoin Allergy (Intermediate, Verified 08/15/25 14:10) Itching lisinopril Allergy (Verified 08/15/25 14:10) Cough losartan Allergy (Verified 08/15/25 14:10) Cough Sulfa (Sulfonamide Antibiotics) Adverse Reaction (Verified 08/15/25 14:10) Rash Medications ???Medication ???Instructions ???Recorded ???Confirmed ???Type aspirin 81 mg chewable tablet 81 mg PO DAILY@0800 preventative 0 01/02/20 08/15/25 History nitroglycerin 0.4 mg sublingual 0.4 mg sublingual Q5-15M PRN chest 04/11/24 08/15/25 Rx tablet pain #25 tabs clopidogrel 75 mg tablet 75 mg PO DAILY Heart #90 tabs 08/1708/15/25 Rx metoprolol succinate 50 mg 50 mg PO DAILY #90 TABLETS 4 08/15/25 Rx tablet,extended release 24 hr budesonide-formoterol HFA 160 2 puff inhalation BID #10.2 grams 11/27/24 08/15/25 Rx mcg-4.5 mcg/actuation aerosol inhaler (Symbicort) pantoprazole 40 mg tablet,delayed 40 mg PO QDAY #90 tabs 03/24/25 1 Rx release (Protonix) amlodipine 5 mg tablet See Rx Instructions .Route 5 08/15/25 Rx .COMPLEX #90 tabs atorvastatin 40 mg tablet 40 mg PO QHS Cholesterol #90 tabs 06/17/25 08/15/25 Rx cholecalciferol (vitamin D3) 1,250 1,250 mcg PO QWEEK #14 caps 06/1608/15/25 Rx mcg (50,000 unit) capsule furosemide 40 mg tablet 40 mg PO QDAY #90 tabs 07/07/25 Rx Have you fallen in the past year?: No Nurse's Note: REQUESTING FLU VACCINE; ALSO INQUIRING ABOUT IF SHE SHOULD GET A PNA VACCINE. [facility] Medical History (Updated 08/15/25 @ 14:[address] Yuko Lofton MD) Encounter for immunization Bilateral lower extremity edema Left flank pain Overweight (BMI 25.0-29.9) Obesity Abdominal wall strain Eye twitch Pain, eye, right UTI (urinary tract infection) GERD (gastroesophageal reflux disease) Cough Cervical radiculopathy Swallowing difficulty Abnormal mammogram of right breast Breast mass, right Insomnia Right ear pain Contact with and (suspected) exposure to other viral communicable diseases CVA (cerebral vascular accident) Osteoarthritis of right hip Recurrent UTI Congestive heart failure (CHF) Right groin pain Dry mouth Leg cramps Dehydration Dark urine Abdominal pain Right foot pain Flu vaccine ne (more content not included)... Normal Internal Medicine Office Vis itobob 06-30-2025 Internal Medicine Office Visit [facility] [address] [place] [address] OFFICE VISIT Date of Service: 06/30/25 MR#: [id number] Acct: [id number] Name: DAHLIA SILVERMAN Rep #: [id number] : 1945 Provider: Dr. Yuko jewell MD Age/Sex: 80/F Location: [facility] Status: Signed Intake Vital Signs 03/24/25 10:36 04/30/25 16:56 06/30/25 11:03 Height 5 ft 4 in 5 ft 4 in 5 ft 4 in Weight: 166 lb BMI 28.5 BP 122/72 H Blood Pressure Location Lt brachial Position Sitting Respiration 16 Pulse 75 Pulse Source Monitor Temp 97.2 F L Temp Source Temporal Pulse Oximetry (%) 96 Oxygen Delivery Method room air Intake Visit Reasons: 3 M FU Chief Complaint: Follow-up chronic conditions Scheduling Administrator Required: No Accompanied by: Self Is patient in pain?: No Allergies nitrofurantoin Allergy (Intermediate, Verified 06/30/25 10:59) Itching lisinopril Allergy (Verified 06/30/25 10:59) Cough losartan Allergy (Verified 06/30/25 10:59) Cough Sulfa (Sulfonamide Antibiotics) Adverse Reaction (Verified 06/30/25 10:59) Rash Medications ???Medication ???Instructions ???Recorded ???Confirmed ???Type aspirin 81 mg chewable tablet 81 mg PO DAILY@0800 preventative 0 01/02/20 06/30/25 History nitroglycerin 0.4 mg sublingual 0.4 mg sublingual Q5-15M PRN chest 04/11/24 06/30/25 Rx tablet pain #25 tabs clopidogrel 75 mg tablet 75 mg PO DAILY Heart #90 tabs 08/1706/30/25 Rx metoprolol succinate 50 mg 50 mg PO DAILY #90 TABLETS 4 06/30/25 Rx tablet,extended release 24 hr budesonide-formoterol HFA 160 2 puff inhalation BID #10.2 grams 11/27/24 06/30/25 Rx mcg-4.5 mcg/actuation aerosol inhaler (Symbicort) furosemide 40 mg tablet 40 mg PO QDAY #90 tabs 03/24/25 Rx pantoprazole 40 mg tablet,delayed 40 mg PO QDAY #90 tabs 03/24/25 0 06/30/25 Rx release (Protonix) amlodipine 5 mg tablet See Rx Instructions .Route 5 06/30/25 Rx .COMPLEX #90 tabs atorvastatin 40 mg tablet 40 mg PO QHS Cholesterol #90 tabs 06/17/25 06/30/25 Rx cholecalciferol (vitamin D3) 1,250 1,250 mcg PO QWEEK #14 caps 06/1606/30/25 Rx mcg (50,000 unit) capsule Have you fallen in the past year?: No [facility] Medical History (Updated 06/30/25 @ 11:[address] Yuko Lofton MD) Bilateral lower extremity edema Left flank pain Overweight (BMI 25.0-29.9) Obesity Abdominal wall strain Eye twitch Pain, eye, right UTI (urinary tract infection) GERD (gastroesophageal reflux disease) Cough Cervical radiculopathy Swallowing difficulty Abnormal mammogram of right breast Breast mass, right Insomnia Right ear pain Contact with and (suspected) exposure to other viral communicable diseases CVA (cerebral vascular accident) Osteoarthritis of right hip Recurrent UTI Congestive heart failure (CHF) Right groin pain Dry mouth Leg cramps Dehydration Dark urine Abdominal pain Right foot pain Flu vaccine need Hoarseness Left shoulder pain Left cervical radiculopathy Abnormal urinalysis Right flank pain Post-menopausal Wears dentures Wears glasses Arthritis High cholesterol TIA (transient ischemic attack) Former smoker Sleep apnea Shortness of breath on exertion Chronic cough History of echocardiogram History of stress test Hypertension Cardiology follow-up encounter History of heart attack Colon cancer screening Arthritis Cataracts, bilateral Osteoporosis Ischemic cardiomyopathy Essential hypertension History of non-ST elevation myocardial infarction (NSTEMI) (01/02/20) Hyperlipidemia COPD (chronic obstructive pulmonary disease) Retinal artery thrombosis, 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) Atherosclerosis of coronary artery of [place] heart without angina pectoris Dyspnea Lung nodule Periodic limb movement DEEPAK (obstructive sleep apnea) Surgical History History of cardiac catheterization History of reconstructive repair of rectocele History of coronary artery stent placement History of lymph node excision History of cholecystectomy History of hysterectomy Family History Father Heart disease Hypertension Sister Heart disease Breast cancer Diabetes Hypertension Sepsis due to urinary tract infection Brother Heart disease Alzheimer's dementia Diabetes Hypertension Mother Cancer Bladder Heart disease Hypertension Social History Smoking Status: Former smoker Tobacco: How many years used: 34 how long ago did patient quit smokin second hand exposure: No alcohol intake: current alcohol intake frequency: holidays/special occasions only substance use type: does not use caffeine: Yes Type (more content not included)... Normal Internal Medicine Office Vis noman 04-30-2025 Internal Medicine Office Visit [facility] [address] [place] [address] [address] [place] [address] OFFICE VISIT Date of Service: 04/30/25 MR#: [id number] Acct: [id number] Name: ANDRADAHILA MARTINEZ Rep #: [id number] : 1945 Provider: Dr. Yuko jewell MD Age/Sex: 80/F Location: [facility] Status: Signed Intake Vital Signs 03/24/25 10:36 04/30/25 16:56 Height 5 ft 4 in 5 ft 4 in Weight: 170 lb BMI 29.2 BP 128/74 H Blood Pressure Location Lt brachial Position Sitting Respiration 16 Pulse 66 Pulse Source Monitor Temp 98.6 F Temp Source Temporal Pulse Oximetry (%) 98 Oxygen Delivery Method room air Intake Visit Reasons: SEVERE ACID REFLUX Chief Complaint: Increased reflux Scheduling Administrator Required: No Accompanied by: Is patient in pain?: No Allergies nitrofurantoin Allergy (Intermediate, Verified 04/30/25 16:41) Itching lisinopril Allergy (Verified 04/30/25 16:41) Cough losartan Allergy (Verified 04/30/25 16:41) Cough Sulfa (Sulfonamide Antibiotics) Adverse Reaction (Verified 04/30/25 16:41) Rash Medications ???Medication ???Instructions ???Recorded ???Confirmed ???Type aspirin 81 mg chewable tablet 81 mg PO DAILY@0800 preventative 0 01/02/20 04/30/25 History amlodipine 5 mg tablet See Rx Instructions .Route 4 04/30/25 Rx .COMPLEX #90 tabs nitroglycerin 0.4 mg sublingual 0.4 mg sublingual Q5-15M PRN chest 04/11/24 04/30/25 Rx tablet pain #25 tabs clopidogrel 75 mg tablet 75 mg PO DAILY Heart #90 tabs 08/1704/30/25 Rx metoprolol succinate 50 mg 50 mg PO DAILY #90 TABLETS 4 04/30/25 Rx tablet,extended release 24 hr cholecalciferol (vitamin D3) 1,250 1,250 mcg PO QWEEK #14 caps 12/0 01/0604/30/25 Rx mcg (50,000 unit) capsule atorvastatin 40 mg tablet 40 mg PO QHS Cholesterol #90 tabs 10/28/24 04/30/25 Rx budesonide-formoterol HFA 160 2 puff inhalation BID #10.2 grams 11/27/24 04/30/25 Rx mcg-4.5 mcg/actuation aerosol inhaler (Symbicort) furosemide 40 mg tablet 40 mg PO QDAY #90 tabs 03/24/25 Rx pantoprazole 40 mg tablet,delayed 40 mg PO QDAY #90 tabs 03/24/25 0 04/30/25 Rx release (Protonix) Have you fallen in the past year?: No [facility] Medical History (Updated 04/30/25 @ 17:[address] Yuko Lofton MD) Overweight (BMI 25.0-29.9) Obesity Abdominal wall strain Eye twitch Pain, eye, right UTI (urinary tract infection) GERD (gastroesophageal reflux disease) Cough Cervical radiculopathy Swallowing difficulty Abnormal mammogram of right breast Breast mass, right Insomnia Right ear pain Contact with and (suspected) exposure to other viral communicable diseases CVA (cerebral vascular accident) Osteoarthritis of right hip Recurrent UTI Congestive heart failure (CHF) Right groin pain Dry mouth Leg cramps Dehydration Dark urine Abdominal pain Right foot pain Flu vaccine need Hoarseness Left shoulder pain Left cervical radiculopathy Abnormal urinalysis Right flank pain Post-menopausal Wears dentures Wears glasses Arthritis High cholesterol TIA (transient ischemic attack) Former smoker Sleep apnea Shortness of breath on exertion Chronic cough History of echocardiogram History of stress test Hypertension Cardiology follow-up encounter History of heart attack Colon cancer screening Arthritis Cataracts, bilateral Osteoporosis Ischemic cardiomyopathy Essential hypertension History of non-ST elevation myocardial infarction (NSTEMI) (01/02/20) Hyperlipidemia COPD (chronic obstructive pulmonary disease) Retinal artery thrombosis, 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) Atherosclerosis of coronary artery of [place] heart without angina pectoris Dyspnea Lung nodule Periodic limb movement DEEPAK (obstructive sleep apnea) Surgical History History of cardiac catheterization History of reconstructive repair of rectocele History of coronary artery stent placement History of lymph node excision History of cholecystectomy History of hysterectomy Family History Father Heart disease Hypertension Sister Heart disease Breast cancer Diabetes Hypertension Sepsis due to urinary tract infection Brother Heart disease Alzheimer's dementia Diabetes Hypertension Mother Cancer Bladder Heart disease Hypertension Social History Smoking Status: Former smoker Tobacco: How many years used: 34 how long ago did patient quit smokin second hand exposure: No alcohol intake: current alcohol intake frequency: holidays/special occasions only substance use type: does not use caffeine: Yes Type: coffee Number of servings: 3 what type of (more content not included)... Normal Internal Medicine Office Vis noman 03-24-2025 Internal Medicine Office Visit [facility] [address] [place] [address] OFFICE VISIT Date of Service: 03/24/25 MR#: [id number] Acct: [id number] Name: DAHLIA SILVERMAN Rep #: [id number] : 1945 Provider: Dr. Yuko jewell MD Age/Sex: 80/F Location: [facility] Status: Signed Intake Vital Signs 01/03/25 14:16 03/04/25 07:19 03/24/25 10:36 Height 5 ft 4 in 5 ft 4 in 5 ft 4 in Weight: 170 lb BMI 29.2 BP 126/82 H Blood Pressure Location Lt brachial Position Sitting Respiration 14 Pulse 66 Pulse Source Monitor Temp 97.7 F L Temp Source Temporal Pulse Oximetry (%) 98 Oxygen Delivery Method room air Intake Visit Reasons: fu Chief Complaint: FU Chronic conditions Scheduling Administrator Required: No Accompanied by: Is patient in pain?: No Allergies nitrofurantoin Allergy (Intermediate, Verified 03/24/25 10:14) Itching lisinopril Allergy (Verified 03/24/25 10:14) Cough losartan Allergy (Verified 03/24/25 10:14) Cough Sulfa (Sulfonamide Antibiotics) Adverse Reaction (Verified 03/24/25 10:14) Rash Medications ???Medication ???Instructions ???Recorded ???Confirmed ???Type aspirin 81 mg chewable tablet 81 mg PO DAILY@0800 preventative 0 01/02/20 03/24/25 History amlodipine 5 mg tablet See Rx Instructions .Route 03/24/25 Rx .COMPLEX #90 tabs nitroglycerin 0.4 mg sublingual 0.4 mg sublingual Q5-15M PRN chest 04/11/24 03/24/25 Rx tablet pain #25 tabs clopidogrel 75 mg tablet 75 mg PO DAILY Heart #90 tabs 08/1703/24/25 Rx metoprolol succinate 50 mg 50 mg PO DAILY #90 TABLETS 4 03/24/25 Rx tablet,extended release 24 hr cholecalciferol (vitamin D3) 1,250 1,250 mcg PO QWEEK #14 caps 12/01/0603/24/25 Rx mcg (50,000 unit) capsule atorvastatin 40 mg tablet 40 mg PO QHS Cholesterol #90 tabs 10/28/24 03/24/25 Rx budesonide-formoterol HFA 160 2 puff inhalation BID #10.2 grams 11/27/24 03/24/25 Rx mcg-4.5 mcg/actuation aerosol inhaler (Symbicort) furosemide 40 mg tablet 40 mg PO Q OTHER DAY #90 tabs 07/1003/24/25 Rx pantoprazole 40 mg tablet,delayed 40 mg PO QDAY #90 tabs 03/24/25 0 03/24/25 Rx release (Protonix) Have you fallen in the past year?: No PFSH Medical History Abdominal wall strain Eye twitch Pain, eye, right UTI (urinary tract infection) GERD (gastroesophageal reflux disease) Cough Cervical radiculopathy Swallowing difficulty Abnormal mammogram of right breast Breast mass, right Insomnia Right ear pain Contact with and (suspected) exposure to other viral communicable diseases CVA (cerebral vascular accident) Osteoarthritis of right hip Recurrent UTI Congestive heart failure (CHF) Right groin pain Dry mouth Leg cramps Dehydration Dark urine Abdominal pain Right foot pain Flu vaccine need Hoarseness Left shoulder pain Left cervical radiculopathy Abnormal urinalysis Right flank pain Post-menopausal Wears dentures Wears glasses Arthritis High cholesterol TIA (transient ischemic attack) Former smoker Sleep apnea Shortness of breath on exertion Chronic cough History of echocardiogram History of stress test Hypertension Cardiology follow-up encounter History of heart attack Colon cancer screening Arthritis Cataracts, bilateral Osteoporosis Ischemic cardiomyopathy Essential hypertension History of non-ST elevation myocardial infarction (NSTEMI) (01/02/20) Hyperlipidemia COPD (chronic obstructive pulmonary disease) Retinal artery thrombosis, 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) Atherosclerosis of coronary artery of [place] heart without angina pectoris Dyspnea Lung nodule Periodic limb movement DEEPAK (obstructive sleep apnea) Surgical History History of cardiac catheterization History of reconstructive repair of rectocele History of coronary artery stent placement History of lymph node excision History of hysterectomy History of cholecystectomy Family History Father Heart disease Hypertension Sister Heart disease Breast cancer Diabetes Hypertension Sepsis due to urinary tract infection Brother Heart disease Alzheimer's dementia Diabetes Hypertension Mother Cancer Bladder Heart disease Hypertension Social History Smoking Status: Former smoker Tobacco: How many years used: 34 how long ago did patient quit smokin second hand exposure: No alcohol intake: current alcohol intake frequency: holidays/special occasions only substance use type: does not use caffeine: Yes Type: coffee Number of servings: 3 what type of physica (more content not included)... Normal Absolute lymphocyte countOrd ered By: Carisa Carty on 03-04-2025 Lymphocytes Auto (Unsp spec) [#/Vol] 1.96 10*3/uL 0.83-4.51 Absolute neutrophil countOrd ered By: Carisa Carty on 03-04-2025 Neutrophils (Bld) [#/Vol] 3.9 10*3/uL 2.0-7.7 Anion gap in Serum or Plasma Ordered By: Carisa Carty on 03-04-2025 Anion gap [Moles/Vol] 13 mmol/L 02-27 [facility] Automated lymphocyte count a s percentage of total leukocytesOrdered By: Carisa Carty on 03-04-2025 Lymphocytes/100 WBC Auto (Unsp spec) 29.0 % BUN/creatinine ratioOrdered By: Carisa Carty on 03-04-2025 Urea nitrogen/Creatinine [Mass ratio] 16.1 mg/mg 08-04 Basic Metabolic Profile (BMP )on 03-04-2025 BUN/CRE 16.1 RATIO Normal 08-04 Comment on above: Performed By: #### L 501.9520, L503.7505, L100.0100, L500.2500 #### Laboratory [facility] [place], [place], [address] Calcium [Mass/Vol] 9.4 mg/dL Normal 7.6-11.0 [facility] Comment on above: Performed By: #### L 501.9520, L503.7505, L100.0100, L500.2500 #### Laboratory [address] [place], [address] Chloride [Moles/Vol] 102 mmol/L Normal 98-108 [facility] Comment on above: Performed By: #### L 501.9520, L503.7505, L100.0100, L500.2500 #### Laboratory [address] [place], [address] CO2 [Moles/Vol] 26.7 mmol/L Normal 21.0-32.0 Comment on above: Performed By: #### L 501.9520, L503.7505, L100.0100, L500.2500 #### Laboratory [address] [place], [address] Creatinine [Mass/Vol] 0.90 mg/dL Normal 0.70-1.20 [facility] Comment on above: Performed By: #### L 501.9520, L503.7505, L100.0100, L500.2500 #### Laboratory [address] [place], [address] GAP 13 Normal 5-15 Comment on above: Performed By: #### L 501.9520, L503.7505, L100.0100, L500.2500 #### Laboratory [address] [place], [address] GFR/1.73 sq M.predicted among non-blacks MDRD (S/P/Bld) [Vol rate/Area] 65 mL/min/{1.73_m2} Normal >60 Comment on above: Result Comment: mL/m in/1.73m2 CKD-EPI Creatinine Equation (2020) Performed By: #### L 501.9520, L503.7505, L100.0100, L500.2500 #### Laboratory [address] [place], [address] Glucose [Mass/Vol] 88 mg/dL Normal 70-99 [facility] Comment on above: Performed By: #### L 501.9520, L503.7505, L100.0100, L500.2500 #### Laboratory [address] [place], [address] Potassium [Moles/Vol] 3.7 mmol/L Normal 3.3-5.1 [facility] Comment on above: Performed By: #### L 501.9520, L503.7505, L100.0100, L500.2500 #### Laboratory [address] [place], [address] Sodium [Moles/Vol] 142 mmol/L Normal 133-145 [facility] Comment on above: Performed By: #### L 501.9520, L503.7505, L100.0100, L500.2500 #### Laboratory [address] [place], [address] Urea nitrogen [Mass/Vol] 15 mg/dL Normal 4-19 Comment on above: Performed By: #### L 501.9520, L503.7505, L100.0100, L500.2500 #### Laboratory [address] [place], [address] Basophil percentageOrdered B y: Carisa Carty on 03-04-2025 Basophils/100 WBC (Bld) 0.4 % 0-1 [facility] CBC W/Diff, Automatedon 02-14 Absolute Lymph 1.96 X10 3/uL Normal 0.83-4.51 Comment on above: Performed By: #### L 501.9520, L503.7505, L100.0100, L500.2500 #### Laboratory [address] [place], [address] Absolute Neut 3.9 X10 3/uL Normal 2.0-7.7 Comment on above: Performed By: #### L 501.9520, L503.7505, L100.0100, L500.2500 #### Laboratory [address] [place], [address] Basophils/100 WBC (Bld) 0.4 % Normal 0-1 [facility] Comment on above: Performed By: #### L 501.9520, L503.7505, L100.0100, L500.2500 #### Laboratory [address] [place], [address] Eosinophils/100 WBC (Bld) 3.4 % Normal 0-5 Comment on above: Performed By: #### L 501.9520, L503.7505, L100.0100, L500.2500 #### Laboratory [address] [place], [address] Erythrocyte distribution width (RBC) [Ratio] 12.7 % Normal 11.6-14.6 Comment on above: Performed By: #### L 501.9520, L503.7505, L100.0100, L500.2500 #### Laboratory [address] [place], [address] Hematocrit (Bld) [Volume fraction] 39.9 % Normal 37-47 Comment on above: Performed By: #### L 501.9520, L503.7505, L100.0100, L500.2500 #### Laboratory [address] [place], [address] Hemoglobin (Bld) [Mass/Vol] 12.8 g/dL Normal 12.0-15.0 Comment on above: Performed By: #### L 501.9520, L503.7505, L100.0100, L500.2500 #### Laboratory [address] [place], [address] IG% 0.300 Normal 0.0-0.9 Comment on above: Result Comment: IG% - Immature Granulocytes (promyelocytes, myelocytes and metamyelocytes) > 1% indicates that a LEFT SHIFT is Present. Performed By: #### L 501.9520, L503.7505, L100.0100, L500.2500 #### Laboratory [address] [place], [address] Lymphocytes/100 WBC (Bld) 29.0 % Normal 19-41 Comment on above: Performed By: #### L 501.9520, L503.7505, L100.0100, L500.2500 #### Laboratory [address] [place], [address] MCH (RBC) [Entitic mass] 28.7 pg Normal 27.0-32.0 Comment on above: Performed By: #### L 501.9520, L503.7505, L100.0100, L500.2500 #### Laboratory [address] [place], [address] MCHC (RBC) [Mass/Vol] 32.1 g/dL Normal 32-36 [facility] Comment on above: Performed By: #### L 501.9520, L503.7505, L100.0100, L500.2500 #### Laboratory [address] [place], [address] MCV (RBC) [Entitic vol] 89.5 fL Normal 81-99 [facility] Comment on above: Performed By: #### L 501.9520, L503.7505, L100.0100, L500.2500 #### Laboratory [address] [place], [address] Monocytes/100 WBC (Bld) 9.3 % Normal 0-10 [facility] Comment on above: Performed By: #### L 501.9520, L503.7505, L100.0100, L500.2500 #### Laboratory [address] [place], [address] Neutrophils/100 WBC (Bld) 57.6 % Normal 47-70 Comment on above: Performed By: #### L 501.9520, L503.7505, L100.0100, L500.2500 #### Laboratory [address] [place], [address] Nucleated RBC (Bld) [#/Vol] 0 10*3/uL Normal 0-5 Comment on above: Performed By: #### L 501.9520, L503.7505, L100.0100, L500.2500 #### Laboratory [address] [place], [address] Platelet mean volume (Bld) [Entitic vol] 10.8 fL Normal 6.2-12.0 Comment on above: Performed By: #### L 501.9520, L503.7505, L100.0100, L500.2500 #### Laboratory [address] [place], [address] Platelets (Bld) [#/Vol] 285 10*3/uL Normal 150-450 Comment on above: Performed By: #### L 501.9520, L503.7505, L100.0100, L500.2500 #### Laboratory [address] [place], [address] RBC (Bld) [#/Vol] 4.46 10*6/uL Normal 4.2-5.4 [facility] Comment on above: Performed By: #### L 501.9520, L503.7505, L100.0100, L500.2500 #### Laboratory [address] [place], [address] RDW SD 41.6 fl Normal 35.1-43.9 Comment on above: Performed By: #### L 501.9520, L503.7505, L100.0100, L500.2500 #### Laboratory [address] [place], [address] WBC (Bld) [#/Vol] 6.8 10*3/uL Normal 4.4-11.0 [facility] Comment on above: Performed By: #### L 501.9520, L503.7505, L100.0100, L500.2500 #### Laboratory [address] [place], [address] Carbon dioxide, total [Moles /volume] in Central venous bloodOrdered By: Carisa Carty on 03-04-2025 CO2 [Moles/Vol] 26.7 mmol/L 21.0-32.0 Cardiology Visit Reporton Cardiology Visit Report [facility] [address] [place] [address] OFFICE VISIT Date of Service: 03/04/25 MR#: [id number] Acct: [id number] Name: DAHLIA SILVERMAN Rep #: [id number] : 1945 Provider: BRITTNEY nguyen Age/Sex: 80/F Location: [facility] Status: Signed HPI HPI History of Present Illness Details: This is a 80-year-old female who presents here today for a cardiovascular follow-up. She has a history of coronary artery disease with stenting to her LAD and RCA in 2019 for a totally occluded left anterior descending artery and high-grade right coronary artery lesion.. She did present with a non-ST elevation myocardial infarction at that time. She did undergo a cardiac catheterization in December 2019 demonstrating an ejection fraction of 30 to 35% with anterior hypokinesis left main demonstrating mild luminal irregularities, left anterior descending artery with mild luminal irregularities in the previous the placed stent was noted to be patent, circumflex artery with mild luminal irregularities in the right coronary artery also with luminal irregularities. The plan was for her to continue medical therapy. She also has a history of hypertension and hyperlipidemia. She did have an echocardiogram performed in October 2020 demonstrating an ejection fraction of 40% with stage I diastolic dysfunction. For shortness of breath earlier this year she underwent a diagnostic stress test which demonstrated mid to distal anterior infarct with apical infarct. No ischemia. Left ventricular systolic dysfunction present. Echocardiogram at that time demonstrated an ejection fraction of 45%. Similar to previous. From a cardiac standpoint, the patient is doing well. She denies any palpitations, chest pain, pressure or heaviness. She does acknowledge SOB with exertion. She denies Orthopnea, and PND. She does not have bleeding issues; no blood in urine, stool, or nosebleeds. She does acknowledge a decrease in energy level. She denies myalgias, or claudication. She does have occasional bilateral ankle edema. She does not have sudden weight gain. She denies lightheadedness, dizziness, syncopal or near syncopal episodes, and headaches. Intake Vital Signs 09/11/24 10:04 01/03/25 14:16 03/04/25 07:19 Height 5 ft 6 in 5 ft 4 in 5 ft 4 in Weight: 169 lb BMI 29.0 BP 120/72 Blood Pressure Location Lt brachial Position Sitting Respiration 18 Pulse 71 Pulse Source Monitor Pulse Oximetry (%) 96 Intake Visit Reasons: 6 M FU Scheduling Administrator Required: No Is patient in pain?: No Allergies nitrofurantoin Allergy (Intermediate, Verified 03/04/25 13:34) Itching lisinopril Allergy (Verified 03/04/25 13:34) Cough losartan Allergy (Verified 03/04/25 13:34) Cough Sulfa (Sulfonamide Antibiotics) Adverse Reaction (Verified 03/04/25 13:34) Rash Medications ???Medication ???Instructions ???Recorded ???Confirmed ???Type aspirin 81 mg chewable tablet 81 mg PO DAILY@0800 preventative 0 01/02/20 03/04/25 History amlodipine 5 mg tablet See Rx Instructions .Route 4 03/04/25 Rx .COMPLEX #90 tabs nitroglycerin 0.4 mg sublingual 0.4 mg sublingual Q5-15M PRN chest 04/11/24 03/04/25 Rx tablet pain #25 tabs clopidogrel 75 mg tablet 75 mg PO DAILY Heart #90 tabs 08/1703/04/25 Rx metoprolol succinate 50 mg 50 mg PO DAILY #90 TABLETS 4 03/04/25 Rx tablet,extended release 24 hr cholecalciferol (vitamin D3) 1,250 1,250 mcg PO QWEEK #14 caps 12/01/0603/04/25 Rx mcg (50,000 unit) capsule atorvastatin 40 mg tablet 40 mg PO QHS Cholesterol #90 tabs 10/28/24 03/04/25 Rx budesonide-formoterol HFA 160 2 puff inhalation BID #10.2 grams 11/27/24 03/04/25 Rx mcg-4.5 mcg/actuation aerosol inhaler (Symbicort) doxepin 6 mg tablet 6 mg PO QHS PRN sleep #30 tabs 10/0903/04/25 Rx furosemide 40 mg tablet 40 mg PO QDAY Dieutic 03/04/25 History Ejection fraction %: 45 Have you fallen in the past year?: No [facility] Medical History Abdominal wall strain Eye twitch Pain, eye, right UTI (urinary tract infection) GERD (gastroesophageal reflux disease) Cough Cervical radiculopathy Swallowing difficulty Abnormal mammogram of right breast Breast mass, right Insomnia Right ear pain Contact with and (suspected) exposure to other viral communicable diseases CVA (cerebral vascular accident) Osteoarthritis of right hip Recurrent UTI Congestive heart failure (CHF) Right groin pain Dry mouth Leg cramps Dehydration Dark urine Abdominal pain Right foot pain Flu vaccine need Hoarseness Left shoulder pain Left cervical radiculopathy Abnormal urinalysis Right flank pain Post-menopausal Wears dentures Wears glasse (more content not included)... Normal Chloride assayOrdered By: Isaias Carty on 03-04-2025 Chloride [Moles/Vol] 102 mmol/L 98-108 [facility] Eosinophil percentageOrdered By: Carisa Carty on 03-04-2025 Eosinophils/100 WBC (Bld) 3.4 % 0-5 Erythrocyte distribution wid th ratioOrdered By: Carisa Carty on 03-04-2025 Erythrocyte distribution width (RBC) [Ratio] 12.7 % 11.6-14.6 Erythrocyte distribution wid th standard deviationOrdered By: Carisa Carty on 03-04-2025 Erythrocyte distribution width (RBC) [Ratio] 41.6 fl 35.1-43.9 Glomerular filtration rate ( GFR) estimation/1.73 sq m using serum, plasma, or whole bOrdered By: Carisa Carty on 03-04-2025 GFR/1.73 sq M.predicted among non-blacks MDRD (S/P/Bld) [Vol rate/Area] 65 mL/min/{1.73_m2} >60 Comment on above: mL/min/1.73m2 CKD-EP I Creatinine Equation (2020) Hematocrit Auto (Bld) [Volum e fraction]Ordered By: Carisa Carty on 03-04-2025 Hematocrit (Bld) [Volume fraction] 39.9 % 37-47 Hemoglobin measurementOrdere d By: Carisa Carty on 03-04-2025 Hemoglobin (Bld) [Mass/Vol] 12.8 g/dL 12.0-15.0 Immature granulocytes/100 WB C Auto (Bld)Ordered By: Carisa Carty on 03-04-2025 Immature granulocytes/100 WBC (Bld) 0.300 % 0.0-0.9 Comment on above: IG% - Immature Granu locytes (promyelocytes, myelocytes and metamyelocytes) > 1% indicates that a LEFT SHIFT is Present. L503.7505on 03-04-2025 Natriuretic peptide B (Bld) [Mass/Vol] 457 pg/mL Normal <=1800 Comment on above: Result Comment: Hear t Failure Unlikely: < 300 pg/mL Heart Failure Likely < 50 Years: > 450 pg/mL 50-75 Years: > 900 pg/mL >75 Years: > 1800 pg/mL Performed By: #### L 501.3920, L503.7505, L100.0100, L500.2500 #### Laboratory [address] [place], [place], [id number] MCV (mean corpuscular volume ) determinationOrdered By: Carisa Carty on 03-04-2025 MCV (RBC) [Entitic vol] 89.5 fL 81-99 [facility] Mean corpuscular hemoglobin (MCH) determinationOrdered By: Carisa Carty on 03-04-2025 MCH (RBC) [Entitic mass] 28.7 pg 27.0-32.0 Mean corpuscular hemoglobin concentration (MCHC) determinationOrdered By: Carisa Carty on 03-04-2025 MCHC (RBC) [Mass/Vol] 32.1 g/dL 32-[facility] Mean platelet volume determi nationOrdered By: Carisa Carty on 03-04-2025 Platelet mean volume (Bld) [Entitic vol] 10.8 fL 6.2-12.0 Monocyte percentageOrdered B y: Carisa Carty on 03-04-2025 Monocytes/100 WBC (Bld) 9.3 % 0-10 [facility] Natriuretic peptide.B prohor shankar N-Terminal [Mass/volume] in Serum or PlasmaOrdered By: Carisa Carty on 03-04-2025 Natriuretic peptide.B prohormone N-Terminal [Mass/Vol] 457 pg/mL <1800 Comment on above: Heart Failure Unlike ly: < 300 pg/mLHeart Failure Likely< 50 Years: > 450 pg/mL50-75 Years: > 900 pg/mL>75 Years: > 1800 pg/mL Neutrophil percentageOrdered By: Carisa Carty on 03-04-2025 Neutrophils/100 WBC (Bld) 57.6 % 47-70 Nucleated red blood cell per centageOrdered By: Carisa Carty on 03-04-2025 Nucleated RBC/100 WBC (Bld) [Ratio] 0 % 0-5 Platelet countOrdered By: Isaias Carty on 03-04-2025 Platelets (Bld) [#/Vol] 285 10*3/uL 150-450 Potassium measurement (mass/ volume)Ordered By: Carisa Carty on 03-04-2025 Potassium (Unsp spec) [Mass/Vol] 3.7 mmol/L 3.3-5.1 RBC Auto (Bld) [#/Vol]Ordere d By: Carisa Carty on 03-04-2025 RBC (Bld) [#/Vol] 4.46 10*6/uL 4.2-5.4 [facility] Serum creatinine measurement (mass/volume)Ordered By: Carisa Carty on 03-04-2025 Creatinine [Mass/Vol] 0.90 mg/dL 0.70-1.20 [facility] Serum glucose measurement (m ass/volume)Ordered By: Carisa Carty on 03-04-2025 Glucose [Mass/Vol] 88 mg/dL 70-99 [facility] Serum or plasma calcium amanda urement (mass/volume)Ordered By: Carisa Carty on 03-04-2025 Calcium [Mass/Vol] 9.4 mg/dL 7.6-11.0 [facility] Serum or plasma urea nitroge n measurement (mass/volume)Ordered By: Carisa Carty on 03-04-2025 Urea nitrogen [Mass/Vol] 15 mg/dL 4-19 Sodium levelOrdered By: Velma Carty on 03-04-2025 Sodium [Moles/Vol] 142 mmol/L 133-145 [facility] TSH DL <= 0.005 mIU/L QnOrde red By: Carisa Carty on 03-04-2025 TSH Qn 1.800 uIU/mL 0.300-4.200 Thyroid Stim Hormone (TSH)on 03-04-2025 TSH 1.800 uIU/mL Normal 0.300-4.200 Comment on above: Performed By: #### L 501.9520, L503.7505, L100.0100, L500.2500 #### Laboratory [address] [place] [address]. [place], [place], [id number] White blood cell (WBC) count Ordered By: Carisa Carty on 03-04-2025 WBC (Bld) [#/Vol] 6.8 10*3/uL 4.4-11.0 [facility] Absolute lymphocyte countOrd ered By: Santhosh Thompson on 02-04-2025 Lymphocytes Auto (Unsp spec) [#/Vol] 2.26 10*3/uL 0.83-4.51 Absolute neutrophil countOrd ered By: Santhosh Thompson on 02-04-2025 Neutrophils (Bld) [#/Vol] 4.1 10*3/uL 2.0-7.7 Anion gap in Serum or Plasma Ordered By: Santhosh Thompson on 02-04-2025 Anion gap [Moles/Vol] 11 mmol/L 5-15 [facility] Automated blood erythrocyte countOrdered By: Santhosh Thompson on 02-04-2025 RBC (Bld) [#/Vol] 4.01 10*6/uL Low 4.2-5.4 [facility] Comment on above: Performed By: #### L 100.0100 #### [address] [place], [address] Automated blood hematocrit ( percentage)Ordered By: Santhosh Thompson on 02-04-2025 Hematocrit (Bld) [Volume fraction] 35.1 % Low 37-47 Comment on above: Performed By: #### L 100.0100 #### [address] [place], [address] Automated lymphocyte count a s percentage of total leukocytesOrdered By: Santhosh Thompson on 02-04-2025 Lymphocytes/100 WBC (Bld) 31.6 % Normal 19- Comment on above: Performed By: #### L 100.0100 #### [address] [place], [address] Lymphocytes/100 WBC Auto (Unsp spec) 31.6 % - BUN/creatinine ratioOrdered By: Santhosh Thompson on 02-04-2025 Urea nitrogen/Creatinine [Mass ratio] 20.3 mg/mg High 10-20 Basophil percentageOrdered B y: Santhosh Thompson on 02-04-2025 Basophils/100 WBC (Bld) 0.4 % Normal 0-1 [facility] Comment on above: Performed By: #### L 100.0100 #### [address] [place], [address] Bilirubin, totalOrdered By: Santhosh Thompson on 02-04-2025 Bilirubin [Mass/Vol] 0.22 mg/dL 0.00-1.30 [facility] CBC W/Diff, Automatedon 04-2 Absolute Lymph 2.26 X10 3/uL Normal 0.83-4.51 Comment on above: Performed By: #### L 100.0100 #### [address] [place], [address] Absolute Neut 4.1 X10 3/uL Normal 2.0-7.7 Comment on above: Performed By: #### L 100.0100 #### [address] [place], [address] IG% 0.300 Normal 0.0-0.9 Comment on above: Result Comment: IG% - Immature Granulocytes (promyelocytes, myelocytes and metamyelocytes) > 1% indicates that a LEFT SHIFT is Present. Performed By: #### L 100.0100 #### [address] [place], [address] Nucleated RBC (Bld) [#/Vol] 0 10*3/uL Normal 0-5 Comment on above: Performed By: #### L 100.0100 #### [address] [place], [address] RDW SD 41.2 fl Normal 35.1-43.9 Comment on above: Performed By: #### L 100.0100 #### [id number] [place], [address] Calculated very low density lipoprotein (VLDL) cholesterol measurementOrdered By: Yuko Lofton on 02-04-2025 Calculated very low density lipoprotein (VLDL) cholesterol measurement 36 mg/dL VLDL Cholesterol 36 mg/dL Carbon dioxide, total [Moles /volume] in Central venous bloodOrdered By: Santhosh Thompson on 02-04-2025 CO2 [Moles/Vol] 24.1 mmol/L 21.0-32.0 Chloride assayOrdered By: Shanon lonnie Donna on 02-04-2025 Chloride [Moles/Vol] 105 mmol/L 98-108 [facility] Eosinophil percentageOrdered By: Santhosh Thompson on 02-04-2025 Eosinophils/100 WBC (Bld) 2.7 % Normal 0-5 Comment on above: Performed By: #### L 100.0100 #### [address] [place], [place], [id number] Erythrocyte distribution wid th (RBC) [Ratio]Ordered By: Santhosh Thompson on 02-04-2025 Erythrocyte distribution width (RBC) [Entitic vol] 41.2 fL 35.1-43.9 Erythrocyte distribution wid th ratioOrdered By: Santhosh Thompson on 02-04-2025 Erythrocyte distribution width (RBC) [Ratio] 13.0 % Normal 11.6-14.6 Comment on above: Performed By: #### L 100.0100 #### [address] [place], [place], [id number] Erythrocyte distribution wid th standard deviationOrdered By: Santhosh Thompson on 02-04-2025 Erythrocyte distribution width (RBC) [Ratio] 41.2 fl 35.1-43.9 GFR/1.73 sq M.predicted ilene g non-blacks MDRD (S/P/Bld) [Vol rate/Area]Ordered By: Santhosh Thompson on 02-04-2025 Estimated GFR (MDRD) Non-Af Amer 72 >60 Comment on above: mL/min/1.73m2 CKD-EP I Creatinine Equation (2020) Glomerular filtration rate ( GFR) estimation/1.73 sq m using serum, plasma, or whole bOrdered By: Santhosh Thompson on 02-04-2025 GFR/1.73 sq M.predicted among non-blacks MDRD (S/P/Bld) [Vol rate/Area] 72 mL/min/{1.73_m2} >60 Comment on above: mL/min/1.73m2 CKD-EP I Creatinine Equation (2020) Hemoglobin measurementOrdere d By: Santhosh Thompson on 02-04-2025 Hemoglobin (Bld) [Mass/Vol] 11.8 g/dL Low 12.0-15.0 Comment on above: Performed By: #### L 100.0100 #### [address] [place], [address] Immature granulocytes/100 WB C Auto (Bld)Ordered By: Santhosh Thompson on 02-04-2025 Immature granulocytes/100 WBC (Bld) 0.300 % 0.0-0.9 Comment on above: IG% - Immature Granu locytes (promyelocytes, myelocytes and metamyelocytes) > 1% indicates that a LEFT SHIFT is Present. LDL calc ser/plasOrdered By: Yuko Lofton on 02-04-2025 Cholesterol in LDL [Mass/Vol] 85 mg/dL Comment on above: Nywxhwnoya=372-920 m g/dL & Higher Anid=951 mg/dL or greater LDL Cholesterol, Calculated 85 mg/dL Comment on above: Qskvinwvko=141-983 m g/dL & Higher Otjr=022 mg/dL or greater Laboratory - Chemistry and C hemistry - challengeOrdered By: Santhosh Thompson on 02-04-2025 AST [Catalytic activity/Vol] 18 U/L <32 Lipid Profileon 02-04-2025 CHOL:HDL 2.94 Normal Comment on above: Performed By: #### L 500.4100 #### [address] [place], [address] Cholesterol [Mass/Vol] 183 mg/dL Normal <=200 [facility] Comment on above: Result Comment: Chol esterol level, Desirable <200 mg/dL Borderline high cholesterol 200-239 mg/dL High cholesterol >=240 mg/dL Recommendations of the NCEP Adult Treatment Panel for the following risk-cutoff thresholds for the [place] population. Performed By: #### L 500.4100 #### [address] [place], [address] Cholesterol in HDL [Mass/Vol] 62 mg/dL Normal Comment on above: Result Comment: Ashley onal Cholesterol Education Program (NCEP) guidelines: <40 mg/dL: Low HDL-cholesterol (major risk factor for CHD) >= 60 mg/dL: High HDL-cholesterol (negative risk factor for CHD) HDL-cholesterol is affected by a number of factors, e.g. smoking, exercise, hormones, sex and age. Performed By: #### L 500.4100 #### [address] [place], [address] Cholesterol in LDL [Mass/Vol] 85 mg/dL Normal Comment on above: Result Comment: Bord lyksjr=113-186 mg/dL Higher Iwxx=041 mg/dL or greater Performed By: #### L 500.4100 #### [address] [place], [address] Cholesterol in VLDL [Mass/Vol] 36 mg/dL Normal 5-40 Comment on above: Performed By: #### L 500.4100 #### [address] [place], [address] Triglyceride [Mass/Vol] 179 mg/dL Normal [facility] Comment on above: Result Comment: The drugs N-Acetylcysteine and Metamizole may falsely depress this assay. Normal range: <150 mg/dL Borderline High: 150-199 mg/dL High: 200-499 mg/dL Very High: >500 mg/dL Performed By: #### L 500.4100 #### [address] [place], [address] Lymphocytes Auto (Unsp spec) [#/Vol]Ordered By: Santhosh Thompson on 02-04-2025 Lymphocytes (Bld) [#/Vol] 2.26 10*3/uL 0.83-4.51 MCV (mean corpuscular volume ) determinationOrdered By: Santhosh Thompson on 02-04-2025 MCV (RBC) [Entitic vol] 87.5 fL Normal 81-99 [facility] Comment on above: Performed By: #### L 100.0100 #### [address] [place], [address] Mean corpuscular hemoglobin (MCH) determinationOrdered By: Santhosh Thompson on 02-04-2025 MCH (RBC) [Entitic mass] 29.4 pg Normal 27.0-32.0 Comment on above: Performed By: #### L 100.0100 #### [address] [place], [address] Mean corpuscular hemoglobin concentration (MCHC) determinationOrdered By: Santhosh Thompson on 02-04-2025 MCHC (RBC) [Mass/Vol] 33.6 g/dL Normal 32-36 [facility] Comment on above: Performed By: #### L 100.0100 #### [address] [place], [address] Mean platelet volume determi nationOrdered By: Santhosh Thompson on 02-04-2025 Platelet mean volume (Bld) [Entitic vol] 10.6 fL Normal 6.2-12.0 Comment on above: Performed By: #### L 100.0100 #### [address] [place], [address] Monocyte percentageOrdered B y: Santhosh Thompson on 02-04-2025 Monocytes/100 WBC (Bld) 8.1 % Normal 0-10 [facility] Comment on above: Performed By: #### L 100.0100 #### [address] [place], [address] Neutrophil percentageOrdered By: Santhosh Thompson on 02-04-2025 Neutrophils/100 WBC (Bld) 56.9 % Normal 47-70 Comment on above: Performed By: #### L 100.0100 #### [address] [place], [place], [address] Nucleated red blood cell per centageOrdered By: Santhosh Thompson on 02-04-2025 Nucleated RBC/100 WBC (Bld) [Ratio] 0 % 0-5 Platelet countOrdered By: Shanon ttelizabethdaxa Thompson on 02-04-2025 Platelets (Bld) [#/Vol] 254 10*3/uL Normal 150-450 Comment on above: Performed By: #### L 100.0100 #### [address] [place], [place], [id number] Potassium (Unsp spec) [Mass/ Vol]Ordered By: Santhosh Thompson on 02-04-2025 Potassium [Moles/Vol] 3.8 mmol/L 3.3-5.1 [facility] Potassium measurement (mass/ volume)Ordered By: Santhosh Thompson on 02-04-2025 Potassium (Unsp spec) [Mass/Vol] 3.8 mmol/L 3.3-5.1 Screening total cholesterol/ high density lipoprotein (HDL) cholesterol ratioOrdered By: Yuko Lofton on 02-04-2025 Cholesterol.total/Choles terol in HDL [Mass ratio] 2.94 {ratio} Serum creatinine measurement (mass/volume)Ordered By: Santhosh Thompson on 02-04-2025 Creatinine [Mass/Vol] 0.82 mg/dL 0.70-1.20 [facility] Serum globulin measurementOr dered By: Santhosh Thompson on 02-04-2025 Globulin (S) [Mass/Vol] 2.6 g/dL 2.2-4.2 [facility] Serum glucose measurement (m ass/volume)Ordered By: Santhosh Thompson on 02-04-2025 Glucose [Mass/Vol] 110 mg/dL High 70-99 [facility] Serum or plasma alanine quick otransferase (ALT) measurementOrdered By: Santhosh Thompson on 02-04-2025 ALT [Catalytic activity/Vol] 18 U/L <35 Serum or plasma albumin amanda urement (mass/volume)Ordered By: Santhosh Thompson on 02-04-2025 Albumin [Mass/Vol] 4.1 g/dL 3.4-4.8 [facility] Serum or plasma albumin/glob ulin mass ratioOrdered By: Santhosh Thompson on 02-04-2025 Albumin/Globulin [Mass ratio] 1.6 {ratio} 0.9-2.4 Serum or plasma alkaline stanley sphatase measurementOrdered By: Santhosh Thompson on 02-04-2025 ALP [Catalytic activity/Vol] 90 U/L 35-104 Serum or plasma calcium amanda urement (mass/volume)Ordered By: Santhosh Thompson on 02-04-2025 Calcium [Mass/Vol] 9.3 mg/dL 7.6-11.0 [facility] Serum or plasma cholesterol in HDL measurement (mass/volume)Ordered By: Yuko Lofton on 02-04-2025 Cholesterol in HDL [Mass/Vol] 62 mg/dL >40 Comment on above: National Cholesterol Education Program (NCEP) guidelines:<40 mg/dL: Low HDL-cholesterol (major risk factor for CHD)>= 60 mg/dL: High HDL-cholesterol (negative risk factor for CHD)HDL-cholesterol is affected by a number of factors, e.g. smoking, exercise, hormones, sex and age. Serum or plasma cholesterol measurement (mass/volume)Ordered By: Yuko Lofton on 02-04-2025 Cholesterol [Mass/Vol] 183 mg/dL <201 [facility] Comment on above: Cholesterol level, D esirable <200 mg/dLBorderline high cholesterol 200-239 mg/dLHigh cholesterol >=240 mg/dLRecommendations of the NCEP Adult Treatment Panel for the following risk-cutoff thresholds for the [place] population. Serum or plasma urea nitroge n measurement (mass/volume)Ordered By: Santhosh Thompson on 02-04-2025 Urea nitrogen [Mass/Vol] 17 mg/dL 4-19 Sodium levelOrdered By: Kaden Thompson on 02-04-2025 Sodium [Moles/Vol] 140 mmol/L 133-145 [facility] Total proteinOrdered By: Negro Thompson on 02-04-2025 Protein [Mass/Vol] 6.7 g/dL 5.9-8.4 [facility] Triglycerides measurementOrd ered By: Yuko Lofton on 02-04-2025 Triglyceride [Mass/Vol] 179 mg/dL <199 [facility] Comment on above: The drugs N-Acetylcy steine and Metamizole may falsely depress this assay. Normal range: <150 mg/dLBorderline High: 150-199 mg/dLHigh: 200-499 mg/dLVery High: >500 mg/dL White blood cell (WBC) count Ordered By: Santhosh Thompson on 02-04-2025 WBC (Bld) [#/Vol] 7.2 10*3/uL Normal 4.4-11.0 [facility] Comment on above: Performed By: #### L 100.0100 #### [address] [facility] [place], [address] Abdomen/Pelvis without Conto n 01-31-2025 Abdomen/Pelvis without Cont [facility] Imaging Services [address] [place], [place] [address] Abdomen/Pelvis without Cont MR#: [id number] Acct: [id number] Name: DAHLIA SILVERMAN Rep #: [id number] : 1945 F 80 From: Gilbert Herrera MD PCP: Dr. Yuko Lofton MD Status: REG CLI Study: Abdomen/Pelvis without Cont Date of Exam: 01/14 06/09 Exam# [id number] Ordering Dr: Santhosh Thompson PROCEDURE: ABDOMEN/PELVIS WITHOUT CONT 01/31/2025 REASON FOR EXAM: PAIN TECHNIQUE: Abdomen and pelvis CT without intravenous contrast. Noncontrast technique limits evaluation of the abdominal and pelvic viscera. Coronal and Sagittal reconstruction series were provided. One or more dose reduction techniques were used (e.g., Automated exposure control, adjustment of the mA and/or kV according to patient size, use of iterative reconstruction technique). PATIENT PREPARATION: Per protocol ORAL CONTRAST TYPE: None. AMOUNT: mL COMPARISON: None. RADIATION DOSE SUMMARY: CTDlvol: 9.32 mGy DLP: 475.03 mGycm One or more dose reduction techniques were used (e.g., Automated exposure control, adjustment of the mA and/or kV according to patient size, use of iterative reconstruction technique). FINDINGS: Note that evaluation of the abdominopelvic viscera, vasculature, and remaining soft tissues is limited in the absence of IV contrast. Lung bases: Coronary atherosclerosis and/or stents. Likely remote infarct involving the LV apex. Mitral annular calcification. Atelectasis/scarring. . Liver: Unremarkable. Spleen: Unremarkable. Gallbladder: Cholecystectomy. Mild prominence of the CBD to 9 mm which may be related to post cholecystectomy effect. Pancreas: Unremarkable. Adrenals: Unremarkable. Kidneys: Unremarkable. Bowel: Prominent periampullary duodenal diverticulum. Diverticulosis. Intramural fat deposition within the hernandez of the colon at some levels is a nonspecific finding which can be seen in the setting of obesity or chronic inflammation.. Question trace stranding in the posterior perianal region. Normal caliber appendix. Lymph nodes: Unremarkable. Vasculature: Moderate to advanced atherosclerosis. Circumaortic LEFT renal vein, normal variant.. Peritoneum: Unremarkable. Bladder: Underdistended and suboptimally evaluated, grossly unremarkable. Reproductive Organs: Hysterectomy. Body Wall: Tiny fat containing umbilical hernia. Bones: Demineralization. Trace lumbar levoscoliosis may be positional.. CT/Abdomen/Pelvis without Cont IMPRESSION: 1. Question trace stranding versus scarring in the posterior perianal region. Correlate for clinical evidence of a focal infectious/inflammato ry process. 2. Cholecystectomy with mild prominence of the CBD which may be related to post cholecystectomy effect. Correlate with serum bilirubin. 3. If concern or unexplained symptoms persist, consider a follow-up exam with IV contrast. 4. Additional description as above. Reading Location: [id number] CC: Dr. Yuko Lofton MD; LINDA Lockhart Supervisor Brine: Signed Normal Bilirubin Test strip Ql (U)O rdered By: Santhosh Thompson on 01-10-2025 Bilirubin Ql (U) Negative Negative Epithelial cells.squamous LM Ql (Urine sed)Ordered By: Santhosh Thompson on 01-10-2025 Epithelial cells.squamous LM.HPF (Urine sed) [#/Area] 0 /[HPF] 5-10 Glucose Ql (U)Ordered By: Shanon Thompson on 01-10-2025 Urine Glucose (UA) Normal mg/dl Normal [facility] Ketones Test strip Ql (U)Ord ered By: Santhosh Thompson on 01-10-2025 Ketones Ql (U) Negative Negative Microscopic analysis of urin e for red blood cells (RBC)Ordered By: Santhosh Thompson on 01-10-2025 Microscopic analysis of urine for red blood cells (RBC) 0 SEEN /hpf 0-5 Urine RBC 0 SEEN /hpf 0-5 Mucus LM Ql (Urine sed)Order ed By: Santhosh Thompson on 01-10-2025 Mucus Ql (Urine sed) 0 SEEN /hpf [facility] Nitrite Test strip Ql (U)Ord ered By: Santhosh Thompson on 01-10-2025 Nitrite Ql (U) Negative Negative Protein Test strip Ql (U)Ord ered By: Santhosh Thompson on 01-10-2025 Protein Ql (U) 15 mg/dl High Negative Squamous epithelial cells de tection in urine sediment by light microscopyOrdered By: Santhosh Thompson on 01-10-2025 Epithelial cells.squamous LM Ql (Urine sed) 0-5 SEEN /hpf 5-10 Urinalysis, Completeon 01-10 EPI,SQUAMOUS 0-5 SEEN Normal 5-10 Comment on above: Order Comment: GINNY CTOR TO SPECIFY Performed By: #### L 400.0001 #### [address] [place], [place], [id number] RBC 0 SEEN Normal 0-5 Comment on above: Order Comment: GINNY CTOR TO SPECIFY Performed By: #### L 400.0001 #### [address] [place], [place], [id number] BACTERIA 0 SEEN Normal None Seen Comment on above: Order Comment: GINNY CTOR TO SPECIFY Performed By: #### L 400.0001 #### [address] [place], [address] Mucus Ql (Urine sed) 0 SEEN Normal [facility] Comment on above: Order Comment: GINNY CTOR TO SPECIFY Performed By: #### L 400.0001 #### [address] [place], [address] WBC 0 SEEN Normal 0-5 Comment on above: Order Comment: GINNY CTOR TO SPECIFY Performed By: #### L 400.0001 #### [address] [place], [place], [id number] Urine blood detectionOrdered By: Santhosh Thompson on 01-10-2025 Urine Occult Blood Negative Negative [facility] Urine clarityOrdered By: Negro Thompsno on 01-10-2025 Clarity (U) Sl. Cloudy Clear Urine color determinationOrd ered By: Santhosh Thompson on 01-10-2025 Color (U) Yellow Yellow Urine glucose detectionOrder ed By: Santhosh Thompson on 01-10-2025 Glucose Ql (U) Normal mg/dl Normal Urine leukocyte esterase det ection by dipstickOrdered By: Santhosh Thompson on 01-10-2025 Leukocyte esterase Test strip Ql (U) Negative Negative Urine pHOrdered By: Santhosh Thompson on 01-10-2025 pH (U) 6.0 [pH] 5.0 - 8.0 Urine sediment bacteria coun t by microscopy (number/high power field)Ordered By: Santhosh Thompson on 01-10-2025 Bacteria LM.HPF (Urine sed) [#/Area] 0 /[HPF] None Seen Urine specific gravity measu rementOrdered By: Santhosh Thompson on 01-10-2025 Specific gravity (U) [Rel density] 1.010 1.002-1.030 Urine urobilinogen measureme ntOrdered By: Santhosh Thompson on 01-10-2025 Urobilinogen Ql (U) Normal mg/dl Normal [facility] Urobilinogen Ql (U)Ordered B y: Santhosh Thompson on 01-10-2025 Urine Urobilinogen Normal mg/dl Normal [facility] White blood cell countOrdere d By: Santhosh Thompson on 01-10-2025 Urine WBC 0 SEEN /hpf 0-5 White blood cell count 0 SEEN /hpf 0-5 [facility] Internal Medicine Office Vis iton 01-03-2025 Internal Medicine Office Visit [facility] [address] [place] [place] [address] OFFICE VISIT Date of Service: 01/03/25 MR#: [id number] Acct: [id number] Name: DAHLIA SILVERMAN Rep #: [id number] : 1945 Provider: LINDA Lockhart Age/Sex: 79/F Location: [facility] [place] Status: Signed Intake Vital Signs 12/13/24 12:52 01/03/25 14:16 Height 5 ft 4 in 5 ft 4 in Weight: 168 lb 172 lb BMI 28.8 29.5 BP 122/68 H 122/64 H Blood Pressure Location Lt brachial Lt brachial Position Sitting Sitting Respiration 12 18 Pulse 66 78 Pulse Source Monitor Monitor Temp 97 F L 97.8 F Temp Source Temporal Temporal Pulse Oximetry (%) 95 95 Oxygen Delivery Method room air room air Intake Visit Reasons: POSSIBLE UTI Chief Complaint: POSSIBLE UTI Is patient in pain?: No Allergies lisinopril Allergy (Verified 01/03/25 14:17) Cough losartan Allergy (Verified 01/03/25 14:17) Cough Sulfa (Sulfonamide Antibiotics) Adverse Reaction (Verified 01/03/25 14:17) Rash Medications ???Medication ???Instructions ???Recorded ???Confirmed ???Type aspirin 81 mg chewable tablet 81 mg PO DAILY@0800 preventative 0 01/02/20 01/03/25 History amlodipine 5 mg tablet See Rx Instructions .Route 4 01/03/25 Rx .COMPLEX #90 tabs nitroglycerin 0.4 mg sublingual 0.4 mg sublingual Q5-15M PRN chest 04/11/24 01/03/25 Rx tablet pain #25 tabs furosemide 40 mg tablet 40 mg PO .2XWEEK Dieutic #24 tabs 04/12/24 01/03/25 Rx clopidogrel 75 mg tablet 75 mg PO DAILY Heart #90 tabs 08/1701/03/25 Rx metoprolol succinate 50 mg 50 mg PO DAILY #90 TABLETS 4 01/03/25 Rx tablet,extended release 24 hr cholecalciferol (vitamin D3) 1,250 1,250 mcg PO QWEEK #14 caps 12/01/0601/03/25 Rx mcg (50,000 unit) capsule atorvastatin 40 mg tablet 40 mg PO QHS Cholesterol #90 tabs 10/28/24 01/03/25 Rx budesonide-formoterol HFA 160 2 puff inhalation BID #10.2 grams 11/27/24 01/03/25 Rx mcg-4.5 mcg/actuation aerosol inhaler (Symbicort) doxepin 6 mg tablet 6 mg PO QHS PRN sleep #30 tabs 10/0901/03/25 Rx nitrofurantoin 100 mg PO Q12H 7 days #14 caps 01/03/25 Rx monohydrate/macrocrys tals 100 mg capsule (Macrobid) Have you fallen in the past year?: No Nurse's Note: pt has complaint of urinary frequency and foul odor of urine x 2 days. denies fever or chills PFSH Medical History Abdominal wall strain Eye twitch Pain, eye, right UTI (urinary tract infection) GERD (gastroesophageal reflux disease) Cough Cervical radiculopathy Swallowing difficulty Abnormal mammogram of right breast Breast mass, right Insomnia Right ear pain Contact with and (suspected) exposure to other viral communicable diseases CVA (cerebral vascular accident) Osteoarthritis of right hip Recurrent UTI Congestive heart failure (CHF) Right groin pain Dry mouth Leg cramps Dehydration Dark urine Abdominal pain Right foot pain Flu vaccine need Hoarseness Left shoulder pain Left cervical radiculopathy Abnormal urinalysis Right flank pain Post-menopausal Wears dentures Wears glasses Arthritis High cholesterol TIA (transient ischemic attack) Former smoker Sleep apnea Shortness of breath on exertion Chronic cough History of echocardiogram History of stress test Hypertension Cardiology follow-up encounter History of heart attack Colon cancer screening Arthritis Cataracts, bilateral Osteoporosis Ischemic cardiomyopathy Essential hypertension History of non-ST elevation myocardial infarction (NSTEMI) (01/02/20) Hyperlipidemia COPD (chronic obstructive pulmonary disease) Retinal artery thrombosis, 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) Atherosclerosis of coronary artery of [place] heart without angina pectoris Dyspnea Lung nodule Periodic limb movement DEEPAK (obstructive sleep apnea) Surgical History History of cardiac catheterization History of reconstructive repair of rectocele History of coronary artery stent placement History of lymph node excision History of hysterectomy History of cholecystectomy Family History Father Heart disease Hypertension Sister Heart disease Breast cancer Diabetes Hypertension Sepsis due to urinary tract infection Brother Heart disease Alzheimer's dementia Diabetes Hypertension Mother Cancer Bladder Heart disease Hypertension Social History Smoking Status: Former smoker Tobacco: How many years used: 34 how long ago did patient quit smokin second hand exposure: No alcohol intake: current alcohol intake frequency: holidays/special occasions only (more content not included)... Normal Laboratory - Chemistry and C hemistry - challengeOrdered By: Santhosh Thompson on 01-03-2025 Ketones Ql (U) Negative pH (U) 5 [pH] Specific gravity (U) [Rel density] 1.020 Laboratory - Hematology and Cell countsOrdered By: Santhosh Thompson on 01-03-2025 Hemoglobin Ql (U) Trace Laboratory - Specimen inform ationOrdered By: Santhosh Thompson on 01-03-2025 Clarity (U) Cloudy Color (U) Yellow Laboratory - UrinalysisOrder ed By: Santhosh Thompson on 01-03-2025 Nitrite Ql (U) Positive Protein Ql (U) Negative No Panel InformationOrdered By: Santhosh Thompson on 01-03-2025 Urine Leukocytes Positive Internal Medicine Office Vis noman 12-13-2024 Internal Medicine Office Visit [facility] [address] [place] [address] [place] [address] OFFICE VISIT Date of Service: 12/13/24 MR#: [id number] Acct: [id number] Name: DAHLIA SILVERMAN Rep #: [id number] : 1945 Provider: LINDA Lockhart Age/Sex: 79/F Location: [facility] Status: Signed Intake Vital Signs 12/02/24 12:42 12/13/24 12:52 Height 5 ft 4 in 5 ft 4 in Weight: 168 lb BMI 28.8 BP 122/68 H Blood Pressure Location Lt brachial Position Sitting Respiration 12 Pulse 66 Pulse Source Monitor Temp 97 F L Temp Source Temporal Pulse Oximetry (%) 95 Oxygen Delivery Method room air Intake Visit Reasons: acute - h er fu Chief Complaint: fu er fatigue and uti Scheduling Administrator Required: No Accompanied by: Self Is patient in pain?: No Allergies lisinopril Allergy (Verified 12/13/24 12:47) Cough losartan Allergy (Verified 12/13/24 12:47) Cough Sulfa (Sulfonamide Antibiotics) Adverse Reaction (Verified 12/13/24 12:47) Rash Medications ???Medication ???Instructions ???Recorded ???Confirmed ???Type aspirin 81 mg chewable tablet 81 mg PO DAILY@0800 preventative 0 01/02/20 12/13/24 History amlodipine 5 mg tablet See Rx Instructions .Route 4 12/13/24 Rx .COMPLEX #90 tabs nitroglycerin 0.4 mg sublingual 0.4 mg sublingual Q5-15M PRN chest 04/11/24 12/13/24 Rx tablet pain #25 tabs furosemide 40 mg tablet 40 mg PO .2XWEEK Dieutic #24 tabs 04/12/24 12/13/24 Rx clopidogrel 75 mg tablet 75 mg PO DAILY Heart #90 tabs 08/1712/13/24 Rx metoprolol succinate 50 mg 50 mg PO DAILY #90 TABLETS 4 12/13/24 Rx tablet,extended release 24 hr cholecalciferol (vitamin D3) 1,250 1,250 mcg PO QWEEK #14 caps 12/0 01/0612/13/24 Rx mcg (50,000 unit) capsule atorvastatin 40 mg tablet 40 mg PO QHS Cholesterol #90 tabs 10/28/24 12/13/24 Rx budesonide-formoterol HFA 160 2 puff inhalation BID #10.2 grams 11/27/24 12/13/24 Rx mcg-4.5 mcg/actuation aerosol inhaler (Symbicort) doxepin 6 mg tablet 6 mg PO QHS PRN sleep #30 tabs 10/0912/13/24 Rx Have you fallen in the past year?: No PFSH Medical History Abdominal wall strain Eye twitch Pain, eye, right UTI (urinary tract infection) GERD (gastroesophageal reflux disease) Cough Cervical radiculopathy Swallowing difficulty Abnormal mammogram of right breast Breast mass, right Insomnia Right ear pain Contact with and (suspected) exposure to other viral communicable diseases CVA (cerebral vascular accident) Osteoarthritis of right hip Recurrent UTI Congestive heart failure (CHF) Right groin pain Dry mouth Leg cramps Dehydration Dark urine Abdominal pain Right foot pain Flu vaccine need Hoarseness Left shoulder pain Left cervical radiculopathy Abnormal urinalysis Right flank pain Post-menopausal Wears dentures Wears glasses Arthritis High cholesterol TIA (transient ischemic attack) Former smoker Sleep apnea Shortness of breath on exertion Chronic cough History of echocardiogram History of stress test Hypertension Cardiology follow-up encounter History of heart attack Colon cancer screening Arthritis Cataracts, bilateral Osteoporosis Ischemic cardiomyopathy Essential hypertension History of non-ST elevation myocardial infarction (NSTEMI) (01/02/20) Hyperlipidemia COPD (chronic obstructive pulmonary disease) Retinal artery thrombosis, 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) Atherosclerosis of coronary artery of [place] heart without angina pectoris Dyspnea Lung nodule Periodic limb movement DEEPAK (obstructive sleep apnea) Surgical History History of cardiac catheterization History of reconstructive repair of rectocele History of coronary artery stent placement History of lymph node excision History of hysterectomy History of cholecystectomy Family History Father Heart disease Hypertension Sister Heart disease Breast cancer Diabetes Hypertension Sepsis due to urinary tract infection Brother Heart disease Alzheimer's dementia Diabetes Hypertension Mother Cancer Bladder Heart disease Hypertension Social History Smoking Status: Former smoker Tobacco: How many years used: 34 how long ago did patient quit smokin second hand exposure: No alcohol intake: current alcohol intake frequency: holidays/special occasions only substance use type: does not use caffeine: Yes Type: coffee Number of servings: 3 what type of physical activity do you participate in: walking HPI HPI Chief Complaint: fu er fatigue and uti Details: DAHLIA SILVERMAN, is a 79 F who presents to the office toda (more content not included)... Normal Urine Cultureon 12-04-2024 [facility] Escherichia coli [place] Count 50,000-80,000 Escherichia coli: REACTION Ampicillin Islt SHANICE <=2 Ampicillin+Sulbac Islt SHANICE <=2 S Cefepime Islt SHANICE <=0.12 S cefTRIAXone Islt SHANICE <=0.25 S Ciprofloxacin Islt SHANICE <=0.06 S B-Lactamase Extended Susc Islt NEG Gentamicin Islt SHANICE <=1 S levoFLOXacin Islt SHANICE <=0.12 S Meropenem Islt SHANICE <=0.25 S Nitrofurantoin Islt SHANICE <=16 S Pip+Tazo Islt SHANICE <=4 S TMP SMX Islt HSANICE <=20 S Normal Comment on above: Performed By: #### M 100.2200 #### [id number] [place], [place], [id number] Absolute lymphocyte countOrd ered By: Monet Amato on 12-02-2024 Lymphocytes Auto (Unsp spec) [#/Vol] 1.28 10*3/uL 0.83-4.51 Absolute neutrophil countOrd ered By: Monet Amato on 12-02-2024 Neutrophils (Bld) [#/Vol] 2.5 10*3/uL 2.0-7.7 Albumin to globulin ratioOrd ered By: Monet Amato on 12-02-2024 Albumin/Globulin [Mass ratio] 0.9 {ratio} 0.9-2.4 Automated lymphocyte count a s percentage of total leukocytesOrdered By: Monet Amato on 12-02-2024 Lymphocytes/100 WBC Auto (Unsp spec) 28.2 % 19-41 Basophil percentageOrdered B y: Monet Amato on 12-02-2024 Basophils/100 WBC (Bld) 0.4 % 0-1 [facility] Bilirubin Test strip Ql (U)O rdered By: Monet Amato on 12-02-2024 Bilirubin Ql (U) Negative Negative Bilirubin, totalOrdered By: Monet Amato on 12-02-2024 Bilirubin [Mass/Vol] 0.40 mg/dL 0.20-1.00 [facility] Comment on above: For patients on eltr ombopag therapy, use of Dimension [place] TBIL is not recommended. Blood urea nitrogen (BUN)/cr eatinine ratioOrdered By: Monet Amato on 12-02-2024 Urea nitrogen/Creatinine [Mass ratio] 16.7 mg/mg 10-20 CBC W/Diff, Automatedon 11-16 Absolute Lymph 1.28 X10 3/uL Normal 0.83-4.51 Comment on above: Performed By: #### L 501.4020, L500.4050, L100.0100 #### [address] [place], [address] Absolute Neut 2.5 X10 3/uL Normal 2.0-7.7 Comment on above: Performed By: #### L 501.4020, L500.4050, L100.0100 #### [address] [place], [address] Basophils/100 WBC (Bld) 0.4 % Normal 0-1 [facility] Comment on above: Performed By: #### L 501.4020, L500.4050, L100.0100 #### [address] [place], [address] Eosinophils/100 WBC (Bld) 0.0 % Normal 0-5 Comment on above: Performed By: #### L 501.4020, L500.4050, L100.0100 #### [id number] [place], [address] Erythrocyte distribution width (RBC) [Ratio] 13.1 % Normal 11.6-14.6 Comment on above: Performed By: #### L 501.4020, L500.4050, L100.0100 #### [address] [place], [address] Hematocrit (Bld) [Volume fraction] 40.9 % Normal 37-47 Comment on above: Performed By: #### L 501.4020, L500.4050, L100.0100 #### [address] [place], [address] Hemoglobin (Bld) [Mass/Vol] 13.2 g/dL Normal 12.0-15.0 Comment on above: Performed By: #### L 501.4020, L500.4050, L100.0100 #### [address] [place], [address] IG% 0.200 Normal 0.0-0.9 Comment on above: Result Comment: IG% - Immature Granulocytes (promyelocytes, myelocytes and metamyelocytes) > 1% indicates that a LEFT SHIFT is Present. Performed By: #### L 501.4020, L500.4050, L100.0100 #### [address] [place], [address] Lymphocytes/100 WBC (Bld) 28.2 % Normal 19-41 Comment on above: Performed By: #### L 501.4020, L500.4050, L100.0100 #### [address] [place], [address] MCH (RBC) [Entitic mass] 28.6 pg Normal 27.0-32.0 Comment on above: Performed By: #### L 501.4020, L500.4050, L100.0100 #### [address] [place], [address] MCHC (RBC) [Mass/Vol] 32.3 g/dL Normal 32-36 [facility] Comment on above: Performed By: #### L 501.4020, L500.4050, L100.0100 #### [address] [place], [address] MCV (RBC) [Entitic vol] 88.7 fL Normal 81-99 [facility] Comment on above: Performed By: #### L 501.4020, L500.4050, L100.0100 #### [address] [place], [address] Monocytes/100 WBC (Bld) 16.7 % High 0-10 [facility] Comment on above: Performed By: #### L 501.4020, L500.4050, L100.0100 #### [address] [place], [address] Neutrophils/100 WBC (Bld) 54.5 % Normal 47-70 Comment on above: Performed By: #### L 501.4020, L500.4050, L100.0100 #### [address] [place], [address] Nucleated RBC (Bld) [#/Vol] 0 10*3/uL Normal 0-5 Comment on above: Performed By: #### L 501.4020, L500.4050, L100.0100 #### [address] [place], [address] Platelet mean volume (Bld) [Entitic vol] 9.9 fL Normal 6.2-12.0 Comment on above: Performed By: #### L 501.4020, L500.4050, L100.0100 #### [address] [place], [address] Platelets (Bld) [#/Vol] 209 10*3/uL Normal 150-450 Comment on above: Performed By: #### L 501.4020, L500.4050, L100.0100 #### [address] [place], [address] RBC (Bld) [#/Vol] 4.61 10*6/uL Normal 4.2-5.4 [facility] Comment on above: Performed By: #### L 501.4020, L500.4050, L100.0100 #### [address] [place], [address] RDW SD 42.7 fl Normal 35.1-43.9 Comment on above: Performed By: #### L 501.4020, L500.4050, L100.0100 #### [address] [place], [address] WBC (Bld) [#/Vol] 4.5 10*3/uL Normal 4.4-11.0 [facility] Comment on above: Performed By: #### L 501.4020, L500.4050, L100.0100 #### [address] [place], [address] Carbon dioxide measurementOr dered By: Monet Amato on 12-02-2024 CO2 [Moles/Vol] 27.0 mmol/L 21.0-32.0 Chest PA and Lateralon 12-02 Chest PA and Lateral [facility] Imaging Services [address] [place] [address] Chest PA and Lateral MR#: [id number] Acct: [id number] Name: ANDRADAHLIA STEPHANIE Rep #: [id number] : 1945 F 79 From: Geoff Chavarria MD PCP: Dr. Yuko Lofton MD Status: REG ER Study: Chest PA and Lateral Date of Exam: 12/02/24 Exam# [id number] Ordering Dr: Monet Amato DO PROCEDURE: CHEST PA AND LATERAL REASON FOR EXAM: Cough TECHNIQUE: Frontal and lateral views of the chest. COMPARISON: 04/11/2024 FINDINGS: The heart size is normal. There are atherosclerotic calcifications of the thoracic aorta. Hyperexpanded lungs with no acute infiltrate Degenerative changes are identified within the thoracic spine. RAD/Chest PA and Lateral IMPRESSION: COPD changes with no acute cardiopulmonary disease Reading Location: [facility] CC: Dr. Monet Amato DO; Dr. Yuko Lofton MD Supervisor Brine: Signed Normal Chloride measurementOrdered By: Monet Amato on 12-02-2024 Chloride [Moles/Vol] 102 mmol/L 98-107 [facility] Comprehensive Metabolic Prof ilon 12-02-2024 Albumin [Mass/Vol] 3.6 g/dL Normal 3.2-5.0 [facility] Comment on above: Order Comment: 'TROP ' Serial specimen #1, #2 or #3: 1 Performed By: #### L 501.4020, L500.4050, L100.0100 #### [address] [place], [address] Albumin/Globulin [Mass ratio] 0.9 {ratio} Normal 0.9-2.4 Comment on above: Order Comment: 'TROP ' Serial specimen #1, #2 or #3: 1 Performed By: #### L 501.4020, L500.4050, L100.0100 #### [address] [place], [address] ALK P 115 U/L Normal 45-117 Comment on above: Order Comment: 'TROP ' Serial specimen #1, #2 or #3: 1 Performed By: #### L 501.4020, L500.4050, L100.0100 #### [address] [place], [address] ALT [Catalytic activity/Vol] 47 U/L Normal 13-56 Comment on above: Order Comment: 'TROP ' Serial specimen #1, #2 or #3: 1 Performed By: #### L 501.4020, L500.4050, L100.0100 #### [address] [place], [address] AST [Catalytic activity/Vol] 30 U/L Normal 15-37 Comment on above: Order Comment: 'TROP ' Serial specimen #1, #2 or #3: 1 Performed By: #### L 501.4020, L500.4050, L100.0100 #### [address] [place], [address] Bilirubin [Mass/Vol] 0.40 mg/dL Normal 0.20-1.00 [facility] Comment on above: Order Comment: 'TROP ' Serial specimen #1, #2 or #3: 1 Result Comment: For patients on eltrombopag therapy, use of Dimension [place] TBIL is not recommended. Performed By: #### L 501.4020, L500.4050, L100.0100 #### [address] [place], [address] BUN/CRE 16.7 RATIO Normal 10-20 Comment on above: Order Comment: 'TROP ' Serial specimen #1, #2 or #3: 1 Performed By: #### L 501.4020, L500.4050, L100.0100 #### [address] [place], [address] CA,Total 9.3 mg/dL Normal 8.5-10.1 Comment on above: Order Comment: 'TROP ' Serial specimen #1, #2 or #3: 1 Performed By: #### L 501.4020, L500.4050, L100.0100 #### [address] [place], [address] Chloride [Moles/Vol] 102 mmol/L Normal 98-107 [facility] Comment on above: Order Comment: 'TROP ' Serial specimen #1, #2 or #3: 1 Performed By: #### L 501.4020, L500.4050, L100.0100 #### [address] [place], [address] CO2 [Moles/Vol] 27.0 mmol/L Normal 21.0-32.0 Comment on above: Order Comment: 'TROP ' Serial specimen #1, #2 or #3: 1 Performed By: #### L 501.4020, L500.4050, L100.0100 #### [address] [place], [address] Creatinine [Mass/Vol] 1.02 mg/dL Normal 0.55-1.02 [facility] Comment on above: Order Comment: 'TROP ' Serial specimen #1, #2 or #3: 1 Result Comment: The validity of the calculated GFR GFRAA in patients over 70 years has not been determined. Clinical correlation is essential. Performed By: #### L 501.4020, L500.4050, L100.0100 #### [address] [place], [address] ECRCL 44.69 ml/min Normal Comment on above: Order Comment: 'TROP ' Serial specimen #1, #2 or #3: 1 Performed By: #### L 501.4020, L500.4050, L100.0100 #### [address] [place], [address] EST GFR - AA 67 mL/min Normal >60 Comment on above: Order Comment: 'TROP ' Serial specimen #1, #2 or #3: 1 Result Comment: Afri can [place] GFR Calc Performed By: #### L 501.4020, L500.4050, L100.0100 #### [address] [place], [address] GAP 7 Normal 5-15 Comment on above: Order Comment: 'TROP ' Serial specimen #1, #2 or #3: 1 Performed By: #### L 501.4020, L500.4050, L100.0100 #### [address] [place], [address] GFR/1.73 sq M.predicted among non-blacks MDRD (S/P/Bld) [Vol rate/Area] 55 mL/min/{1.73_m2} Low >60 Comment on above: Order Comment: 'TROP ' Serial specimen #1, #2 or #3: 1 Result Comment: Non- GFR Calc Performed By: #### L 501.4020, L500.4050, L100.0100 #### [address] [place], [address] Globulin (S) [Mass/Vol] 4.1 g/dL Normal 2.2-4.2 [facility] Comment on above: Order Comment: 'TROP ' Serial specimen #1, #2 or #3: 1 Performed By: #### L 501.4020, L500.4050, L100.0100 #### [address] [place], [address] Glucose [Mass/Vol] 87 mg/dL Normal 74-106 [facility] Comment on above: Order Comment: 'TROP ' Serial specimen #1, #2 or #3: 1 Performed By: #### L 501.4020, L500.4050, L100.0100 #### [address] [place], [address] Potassium [Moles/Vol] 3.9 mmol/L Normal 3.5-5.1 [facility] Comment on above: Order Comment: 'TROP ' Serial specimen #1, #2 or #3: 1 Performed By: #### L 501.4020, L500.4050, L100.0100 #### [address] [place], [address] Sodium [Moles/Vol] 136 mmol/L Normal 136-145 [facility] Comment on above: Order Comment: 'TROP ' Serial specimen #1, #2 or #3: 1 Performed By: #### L 501.4020, L500.4050, L100.0100 #### [address] [place], [address] T PROT 7.7 g/dL Normal 6.4-8.2 Comment on above: Order Comment: 'TROP ' Serial specimen #1, #2 or #3: 1 Performed By: #### L 501.4020, L500.4050, L100.0100 #### [address] [place], [address] Urea nitrogen [Mass/Vol] 17 mg/dL Normal 7-18 Comment on above: Order Comment: 'TROP ' Serial specimen #1, #2 or #3: 1 Performed By: #### L 501.4020, L500.4050, L100.0100 #### [address] [place], [address] Emergency Department Summary on 12-02-2024 Emergency Department Summary [facility] Medical Records Department [address] [place] [address] Emergency Department Summary 12/02/24 MR#: [id number] Acct: [id number] Name: DAHLIA SILVERMAN Rep #: [id number] : 1945 79 From: Monet Amato DO PCP: Dr. Yuko Lofton MD Status:DEP ER Location: ED HPI History of Present Illness Chief Complaint: Cough Informant: patient and spouse/S.O. Narrative Narrative: Patient is a 79-year-old female with history of COPD (remote smoking history), coronary disease status post stenting, stroke, sleep apnea (does not wear home O2 or BiPAP) and ischemic cardiomyopathy presenting with cough and flulike symptoms for the past 3 days. She states that she has not been feeling good for 3 days has had a cough that is productive of mucus but she is have a hard time getting it up. She has been short of breath minimal activity. He has been having diarrhea (1-2 episodes a day). Denies any nausea or vomiting. Denies abdominal pain. Is had congestion and dry throat. States she feels hoarse. This morning when she got up she felt especially weak and when she was trying to do her hair she felt she was going to collapse. She notes has been laying around in bed for the past 2 days. Denies any fever. Denies any swelling of her legs. Does have aerosols and rescue inhalers at home but does not like to use them. She notes that she did go to her doctor office last week and thinks she might of gotten sick from something there. No other complaints or concerns reported at this time [facility] Medical History Abdominal wall strain Eye twitch Pain, eye, right UTI (urinary tract infection) GERD (gastroesophageal reflux disease) Cough Cervical radiculopathy Swallowing difficulty Abnormal mammogram of right breast Breast mass, right Insomnia Right ear pain Contact with and (suspected) exposure to other viral communicable diseases CVA (cerebral vascular accident) Osteoarthritis of right hip Recurrent UTI Congestive heart failure (CHF) Right groin pain Dry mouth Leg cramps Dehydration Dark urine Abdominal pain Right foot pain Flu vaccine need Hoarseness Left shoulder pain Left cervical radiculopathy Abnormal urinalysis Right flank pain Post-menopausal Wears dentures Wears glasses Arthritis High cholesterol TIA (transient ischemic attack) Former smoker Sleep apnea Shortness of breath on exertion Chronic cough History of echocardiogram History of stress test Hypertension Cardiology follow-up encounter History of heart attack Colon cancer screening Arthritis Cataracts, bilateral Osteoporosis Ischemic cardiomyopathy Essential hypertension History of non-ST elevation myocardial infarction (NSTEMI) (01/02/20) Hyperlipidemia COPD (chronic obstructive pulmonary disease) Retinal artery thrombosis, 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) Atherosclerosis of coronary artery of [place] heart without angina pectoris Dyspnea Lung nodule Periodic limb movement DEEPAK (obstructive sleep apnea) Home Medications ???Medication ???Instructions ???Recorded ???Last Taken ???Type aspirin 81 mg chewable tablet 81 mg PO DAILY@0800 preventative 0 01/02/20 02/20/22 History amlodipine 5 mg tablet See Rx Instructions .Route 4 Unknown Rx .COMPLEX #90 tabs nitroglycerin 0.4 mg sublingual 0.4 mg sublingual Q5-15M PRN chest 04/11/24 Unknown Rx tablet pain #25 tabs furosemide 40 mg tablet 40 mg PO .2XWEEK Dieutic #24 tabs 04/12/24 Unknown Rx clopidogrel 75 mg tablet 75 mg PO DAILY Heart #90 tabs 08/17 05/08 Unknown Rx metoprolol succinate 50 mg 50 mg PO DAILY #90 TABLETS 4 Unknown Rx tablet,extended release 24 hr cholecalciferol (vitamin D3) 1,250 1,250 mcg PO QWEEK #14 caps 12/01/06 Unknown Rx mcg (50,000 unit) capsule atorvastatin 40 mg tablet 40 mg PO QHS Cholesterol #90 tabs 10/28/24 Unknown Rx budesonide-formoterol HFA 160 2 puff inhalation BID #10.2 grams 11/27/24 Unknown Rx mcg-4.5 mcg/actuation aerosol inhaler (Symbicort) doxepin 6 mg tablet 6 mg PO QHS PRN sleep #30 tabs 10/09 Unknown Rx cephalexin 500 mg capsule 500 mg PO Q12 #14 CAPSULES 5 Unknown Rx prednisone 20 mg tablet 40 mg (2 x 20 mg) PO DAILY #10 Unknown Rx TABLETS Allergy/AdvReac Type Severity Reaction Status Date / Time lisinopril Allergy Cough Verified 12/02/24 12:42 losartan Allergy Cough Verified 12/02/24 12:42 Sulfa (Sulfonamide AdvReac Rash Verified 12/02/24 12:42 Antibiotics) Family History Father Heart disease Hypertension Sister Heart disease Breast cancer Diabetes Hypertension Sepsis due to urinary tract infection Brother Heart disease Alzheimer's dementia Diabetes Hy (more content not included)... Normal Eosinophil percentageOrdered By: Monet Amato on 12-02-2024 Eosinophils/100 WBC (Bld) 0.0 % 0-5 Epithelial cells.squamous LM Ql (Urine sed)Ordered By: Monet Amato on 12-02-2024 Epithelial cells.squamous LM.HPF (Urine sed) [#/Area] 0 /[HPF] 5-10 Erythrocyte distribution wid th ratioOrdered By: Monet Amato on 12-02-2024 Erythrocyte distribution width (RBC) [Ratio] 13.1 % 11.6-14.6 Erythrocyte distribution wid th standard deviationOrdered By: Monet Amato on 12-02-2024 Erythrocyte distribution width (RBC) [Entitic vol] 42.7 fL 35.1-43.9 Erythrocyte distribution width (RBC) [Ratio] 42.7 fl 35.1-43.9 Estimated glomerular filtrat ion rate (GFR) AmericanOrdered By: Monet Amato on 12-02-2024 Estimated GFR (MDRD) Amer 67 mL/min >60 Comment on above: GFR Calc Estimation of creatinine kat aranceOrdered By: Mnoet Amato on 12-02-2024 Estimated Creatinine Clearance Calc 44.69 ml/min Glomerular filtration rate ( GFR) estimationOrdered By: Monet Amato on 12-02-2024 Estimated GFR (MDRD) Non-Af Amer 55 mL/min Low >60 Comment on above: Non- GFR Calc GFR/1.73 sq M.predicted among non-blacks MDRD (S/P/Bld) [Vol rate/Area] 55 mL/min/{1.73_m2} Low >60 Comment on above: Non- GFR Calc Glucose Ql (U)Ordered By: Juan Amato on 12-02-2024 Urine Glucose (UA) Normal mg/dl Normal [facility] Glucose measurementOrdered B y: Monet Amato on 12-02-2024 Glucose [Mass/Vol] 87 mg/dL 74-106 [facility] Hematocrit Auto (Bld) [Volum e fraction]Ordered By: Monet Amato on 12-02-2024 Hematocrit (Bld) [Volume fraction] 40.9 % 37-47 Hemoglobin measurementOrdere d By: Monet Amato on 12-02-2024 Hemoglobin (Bld) [Mass/Vol] 13.2 g/dL 12.0-15.0 Immature granulocytes/100 WB C Auto (Bld)Ordered By: Monet Amato on 12-02-2024 Immature granulocytes/100 WBC (Bld) 0.200 % 0.0-0.9 Comment on above: IG% - Immature Granu locytes (promyelocytes, myelocytes and metamyelocytes) > 1% indicates that a LEFT SHIFT is Present. Influenza virus A and B and SARS-CoV-2 (COVID-19) and Respiratory syncytial virus RNAOrdered By: Monet Amato on 12-02-2024 SARS-CoV-2 (COVID-19) RNA GODFREY+probe Ql (Unsp spec) Influenzae A Abnormal Ketones Test strip Ql (U)Ord ered By: Monet Amato on 12-02-2024 Ketones Ql (U) Negative Negative L501.4020on 12-02-2024 TROPONIN-I HS 11 pg/mL Normal 3.0-54.0 Comment on above: Order Comment: 'TROP ' Serial specimen #1, #2 or #3: 1 Result Comment: Plea se Note: New Test Units and Gender Specific Reference Ranges. For more information see Policy Stat Procedure [place] High Sensitivity Troponin (TNIH) and attachments. Performed By: #### L 501.4020, L500.4050, L100.0100 #### [id number] [place], [address] Laboratory - Chemistry and C hemistry - challengeOrdered By: Monet Amato on 12-02-2024 AST [Catalytic activity/Vol] 30 U/L 15-37 Lymphocytes Auto (Unsp spec) [#/Vol]Ordered By: Monet Amato on 12-02-2024 Lymphocytes (Bld) [#/Vol] 1.28 10*3/uL 0.83-4.51 Lymphocytes/100 WBC Auto (Un sp spec)Ordered By: Monet Amato on 12-02-2024 Lymphocytes/100 WBC (Bld) 28.2 % 19-41 M100.678on 12-02-2024 M100.678 CRITICAL VALUE CURRAN D TO JALEN VALADEZ [employer]USTRI[employer]Y TE[employer]ER 12/02/24 1624 Rodrick Jimenez. RESULTS READ BACK BY SAME. Pending SARS-CoV-2 (COVID 19) Negative INFLUENZA A A Positive A INFLUENZA B Negative RSV PCR Negative INFLUENZAE A Normal Comment on above: Performed By: #### M 100.678 #### Laboratory [address] [place], [place], [address] MCV (mean corpuscular volume ) determinationOrdered By: Monet Amato on 12-02-2024 MCV (RBC) [Entitic vol] 88.7 fL 81-99 [facility] Mean corpuscular hemoglobin (MCH) determinationOrdered By: Monet Amato on 12-02-2024 MCH (RBC) [Entitic mass] 28.6 pg 27.0-32.0 Mean corpuscular hemoglobin concentration (MCHC) determinationOrdered By: Monet Amato on 12-02-2024 MCHC (RBC) [Mass/Vol] 32.3 g/dL 32-36 [facility] Mean platelet volume determi nationOrdered By: Monet Amato on 12-02-2024 Platelet mean volume (Bld) [Entitic vol] 9.9 fL 6.2-12.0 Microscopic analysis of urin e for red blood cells (RBC)Ordered By: Monet Amato on 12-02-2024 Microscopic analysis of urine for red blood cells (RBC) 0-5 SEEN /hpf 0-5 Urine RBC 0-5 SEEN /hpf 0-5 Monocyte percentageOrdered B y: Monet Amato on 12-02-2024 Monocytes/100 WBC (Bld) 16.7 % High 0-10 [facility] Mucus LM Ql (Urine sed)Order ed By: Monet Amato on 12-02-2024 Mucus Ql (Urine sed) 0 SEEN /hpf [facility] Neutrophil percentageOrdered By: Monet Amato on 12-02-2024 Neutrophils/100 WBC (Bld) 54.5 % 47-70 Nitrite Test strip Ql (U)Ord ered By: Monet Amato on 12-02-2024 Nitrite Ql (U) Positive High Negative Nucleated red blood cell per centageOrdered By: Monet Amato on 12-02-2024 Nucleated RBC/100 WBC (Bld) [Ratio] 0 % 0-5 Platelet countOrdered By: Juan Amato on 12-02-2024 Platelets (Bld) [#/Vol] 209 10*3/uL 150-450 Potassium measurementOrdered By: Monet Amato on 12-02-2024 Potassium [Moles/Vol] 3.9 mmol/L 3.5-5.1 [facility] Protein Test strip Ql (U)Ord ered By: Monet Amato on 12-02-2024 Protein Ql (U) 30 mg/dl High Negative RBC Auto (Bld) [#/Vol]Ordere d By: Monet Amato on 12-02-2024 RBC (Bld) [#/Vol] 4.61 10*6/uL 4.2-5.4 [facility] Serum anion gap measurementO rdered By: Monet Amato on 12-02-2024 Anion gap [Moles/Vol] 7 mmol/L 5-15 [facility] Serum globulin measurementOr dered By: Monet Amato on 12-02-2024 Globulin (S) [Mass/Vol] 4.1 g/dL 2.2-4.2 [facility] Serum or plasma alanine quick otransferase (ALT) measurementOrdered By: Monet Amato on 12-02-2024 ALT [Catalytic activity/Vol] 47 U/L 13-56 Serum or plasma albumin amanda urement (mass/volume)Ordered By: Monet Amato on 12-02-2024 Albumin [Mass/Vol] 3.6 g/dL 3.2-5.0 [facility] Serum or plasma alkaline stanley sphatase measurementOrdered By: Monet Amato on 12-02-2024 ALP [Catalytic activity/Vol] 115 U/L 45-117 Serum or plasma calcium amanda urement (mass/volume)Ordered By: Monet Amato on 12-02-2024 Calcium [Mass/Vol] 9.3 mg/dL 8.5-10.1 [facility] Serum or plasma creatinine m easurement (mass/volume)Ordered By: Monet Amato on 12-02-2024 Creatinine [Mass/Vol] 1.02 mg/dL 0.55-1.02 [facility] Comment on above: The validity of the calculated GFR & GFRAA in patients over 70 years has not been determined. Clinical correlation is essential. Serum or plasma urea nitroge n measurement (mass/volume)Ordered By: Monet Amato on 12-02-2024 Urea nitrogen [Mass/Vol] 17 mg/dL 7-18 Sodium levelOrdered By: Cari Amato on 12-02-2024 Sodium [Moles/Vol] 136 mmol/L 136-145 [facility] Squamous epithelial cells de tection in urine sediment by light microscopyOrdered By: Monet Amato on 12-02-2024 Epithelial cells.squamous LM Ql (Urine sed) 0-5 SEEN /hpf 5-10 Total proteinOrdered By: Socorro Amato on 12-02-2024 Protein [Mass/Vol] 7.7 g/dL 6.4-8.2 [facility] Troponin IOrdered By: Monet Amato on 12-02-2024 Troponin I 11 pg/mL 3.0-54.0 Comment on above: Please Note: New Pratima t Units and Gender Specific Reference Ranges. For more information see Policy Stat Procedure [place] High Sensitivity Troponin (TNIH) and attachments. Troponin I High Sensitivity 11 pg/mL 3.0-54.0 Comment on above: Please Note: New Pratima t Units and Gender Specific Reference Ranges. For more information see Policy Stat Procedure [place] High Sensitivity Troponin (TNIH) and attachments. Urinalysis, Completeon 12-02 EPI,SQUAMOUS 0-5 SEEN Normal 5-10 Comment on above: Order Comment: CLEAN CATCH Performed By: #### L 400.0001 #### [id number] [place], [address] RBC 0-5 SEEN Normal 0-5 Comment on above: Order Comment: CLEAN CATCH Performed By: #### L 400.0001 #### [id number] [place], [address] BACTERIA 4+ /hpf Normal None Seen Comment on above: Order Comment: CLEAN CATCH Performed By: #### L 400.0001 #### [id number] [place], [address] WBC >100 SEEN Normal 0-5 Comment on above: Order Comment: CLEAN CATCH Performed By: #### L 400.0001 #### [id number] [place] [place], [address] Mucus Ql (Urine sed) 0 SEEN Normal [facility] Comment on above: Order Comment: CLEAN CATCH Performed By: #### L 400.0001 #### [id number] [place], [place], [id number] Urine blood detectionOrdered By: Monet Amato on 12-02-2024 Urine Occult Blood 150 /ul High Negative [facility] Urine clarityOrdered By: Socorro Amato on 12-02-2024 Clarity (U) Cloudy Clear Urine color determinationOrd ered By: Monet Amato on 12-02-2024 Color (U) Yellow Yellow Urine cultureOrdered By: Socorro Amato on 12-02-2024 Bacteria identified Cx Nom (U) Escherichia coli Abnormal Urine glucose detectionOrder ed By: Monet Amato on 12-02-2024 Glucose Ql (U) Normal mg/dl Normal Urine leukocyte esterase det ection by dipstickOrdered By: Monet Amato on 12-02-2024 Leukocyte esterase Test strip Ql (U) 500 /ul High Negative Urine pHOrdered By: Monet ventura on 12-02-2024 pH (U) 5.0 [pH] 5.0 - 8.0 Urine sediment bacteria coun t by microscopy (number/high power field)Ordered By: Monet Amato on 12-02-2024 Bacteria LM.HPF (Urine sed) [#/Area] 4 /[HPF] None Seen Urine specific gravity measu rementOrdered By: Monet Amato on 12-02-2024 Specific gravity (U) [Rel density] 1.020 1.002-1.030 Urine urobilinogen measureme ntOrdered By: Monet Amato on 12-02-2024 Urobilinogen Ql (U) Normal mg/dl Normal [facility] Urobilinogen Ql (U)Ordered B y: Monet Amato on 12-02-2024 Urine Urobilinogen Normal mg/dl Normal [facility] White blood cell (WBC) count Ordered By: Monet Amato on 12-02-2024 WBC (Bld) [#/Vol] 4.5 10*3/uL 4.4-11.0 [facility] White blood cell countOrdere d By: Monet Amato on 12-02-2024 Urine WBC >100 SEEN /hpf 0-5 White blood cell count >100 SEEN /hpf 0-5 Absolute lymphocyte countOrd ered By: Yuko Lofton on 11-27-2024 Lymphocytes Auto (Unsp spec) [#/Vol] 2.07 10*3/uL 0.83-4.51 Absolute neutrophil countOrd ered By: Yuko Lofton on 11-27-2024 Neutrophils (Bld) [#/Vol] 3.9 10*3/uL 2.0-7.7 Albumin to globulin ratioOrd ered By: Yuko Lofton on 11-27-2024 Albumin/Globulin [Mass ratio] 1.0 {ratio} 0.9-2.4 Automated lymphocyte count a s percentage of total leukocytesOrdered By: Anafaribaaggiejonah Shelljen on 11-27-2024 Lymphocytes/100 WBC Auto (Unsp spec) 31.0 % 19-41 Basophil percentageOrdered B y: Yuko Lofton on 11-27-2024 Basophils/100 WBC (Bld) 0.4 % 0-1 [facility] Bilirubin, totalOrdered By: Anafaribaaggiejonah Shelljen on 11-27-2024 Bilirubin [Mass/Vol] 0.20 mg/dL 0.20-1.00 [facility] Comment on above: For patients on eltr ombopag therapy, use of Dimension [place] TBIL is not recommended. Blood urea nitrogen (BUN)/cr eatinine ratioOrdered By: Anayanet Lofton on 11-27-2024 Urea nitrogen/Creatinine [Mass ratio] 22.6 mg/mg High 10-20 CBC W/Diff, Automatedon 11-16 Absolute Lymph 2.07 X10 3/uL Normal 0.83-4.51 Comment on above: Performed By: #### L 500.4050, L100.0100 #### Laboratory [address] [place], [address] Absolute Neut 3.9 X10 3/uL Normal 2.0-7.7 Comment on above: Performed By: #### L 500.4050, L100.0100 #### Laboratory [address] [place], [address] Basophils/100 WBC (Bld) 0.4 % Normal 0-1 [facility] Comment on above: Performed By: #### L 500.4050, L100.0100 #### Laboratory [address] [place], [address] Eosinophils/100 WBC (Bld) 2.2 % Normal 0-5 Comment on above: Performed By: #### L 500.4050, L100.0100 #### Laboratory [address] [place], [address] Erythrocyte distribution width (RBC) [Ratio] 12.8 % Normal 11.6-14.6 Comment on above: Performed By: #### L 500.4050, L100.0100 #### Laboratory [address] [place], [address] Hematocrit (Bld) [Volume fraction] 38.7 % Normal 37-47 Comment on above: Performed By: #### L 500.4050, L100.0100 #### Laboratory [address] [place], [address] Hemoglobin (Bld) [Mass/Vol] 12.3 g/dL Normal 12.0-15.0 Comment on above: Performed By: #### L 500.4050, L100.0100 #### Laboratory [address] [place], [address] IG% 0.300 Normal 0.0-0.9 Comment on above: Result Comment: IG% - Immature Granulocytes (promyelocytes, myelocytes and metamyelocytes) > 1% indicates that a LEFT SHIFT is Present. Performed By: #### L 500.4050, L100.0100 #### Laboratory [address] [place], [address] Lymphocytes/100 WBC (Bld) 31.0 % Normal 19-41 Comment on above: Performed By: #### L 500.4050, L100.0100 #### Laboratory [address] [place], [address] MCH (RBC) [Entitic mass] 28.7 pg Normal 27.0-32.0 Comment on above: Performed By: #### L 500.4050, L100.0100 #### Laboratory [address] [place], [address] MCHC (RBC) [Mass/Vol] 31.8 g/dL Low 32-36 [facility] Comment on above: Performed By: #### L 500.4050, L100.0100 #### Laboratory [address] [place], [address] MCV (RBC) [Entitic vol] 90.4 fL Normal 81-99 [facility] Comment on above: Performed By: #### L 500.4050, L100.0100 #### Laboratory [address] [place], [address] Monocytes/100 WBC (Bld) 7.5 % Normal 0-10 [facility] Comment on above: Performed By: #### L 500.4050, L100.0100 #### Laboratory [address] [place], [address] Neutrophils/100 WBC (Bld) 58.6 % Normal 47-70 Comment on above: Performed By: #### L 500.4050, L100.0100 #### Laboratory [address] [place], [address] Nucleated RBC (Bld) [#/Vol] 0 10*3/uL Normal 0-5 Comment on above: Performed By: #### L 500.4050, L100.0100 #### Laboratory [address] [place], [address] Platelet mean volume (Bld) [Entitic vol] 10.6 fL Normal 6.2-12.0 Comment on above: Performed By: #### L 500.4050, L100.0100 #### Laboratory [address] [place], [address] Platelets (Bld) [#/Vol] 262 10*3/uL Normal 150-450 Comment on above: Performed By: #### L 500.4050, L100.0100 #### Laboratory [address] [place], [address] RBC (Bld) [#/Vol] 4.28 10*6/uL Normal 4.2-5.4 [facility] Comment on above: Performed By: #### L 500.4050, L100.0100 #### Laboratory [address] [place], [address] RDW SD 42.4 fl Normal 35.1-43.9 Comment on above: Performed By: #### L 500.4050, L100.0100 #### Laboratory [address] [place], [address] WBC (Bld) [#/Vol] 6.7 10*3/uL Normal 4.4-11.0 [facility] Comment on above: Performed By: #### L 500.4050, L100.0100 #### Laboratory [address] [place], [address] Carbon dioxide measurementOr dered By: Yuko Lofton on 11-27-2024 CO2 [Moles/Vol] 24.0 mmol/L 21.0-32.0 Chloride measurementOrdered By: Yuko Lofton on 11-27-2024 Chloride [Moles/Vol] 108 mmol/L High 98-107 [facility] Comprehensive Metabolic Prof ilon 11-27-2024 Albumin [Mass/Vol] 3.7 g/dL Normal 3.2-5.0 [facility] Comment on above: Performed By: #### L 500.4050, L100.0100 #### Laboratory [address] [place], [address] Albumin/Globulin [Mass ratio] 1.0 {ratio} Normal 0.9-2.4 Comment on above: Performed By: #### L 500.4050, L100.0100 #### Laboratory [address] [place], [address] ALK P 103 U/L Normal 45-117 Comment on above: Performed By: #### L 500.4050, L100.0100 #### Laboratory [address] [place], [address] ALT [Catalytic activity/Vol] 24 U/L Normal 13-56 Comment on above: Performed By: #### L 500.4050, L100.0100 #### Laboratory [address] [place], [address] AST [Catalytic activity/Vol] 19 U/L Normal 15-37 Comment on above: Performed By: #### L 500.4050, L100.0100 #### Laboratory [address] [place], [address] Bilirubin [Mass/Vol] 0.20 mg/dL Normal 0.20-1.00 [facility] Comment on above: Result Comment: For patients on eltrombopag therapy, use of Dimension [place] TBIL is not recommended. Performed By: #### L 500.4050, L100.0100 #### Laboratory [address] [place], [address] BUN/CRE 22.6 RATIO High 10-20 Comment on above: Performed By: #### L 500.4050, L100.0100 #### Laboratory [address] [place], [address] CA,Total 8.9 mg/dL Normal 8.5-10.1 Comment on above: Performed By: #### L 500.4050, L100.0100 #### Laboratory [address] [place], [address] Chloride [Moles/Vol] 108 mmol/L High 98-107 [facility] Comment on above: Performed By: #### L 500.4050, L100.0100 #### Laboratory [address] [place], [address] CO2 [Moles/Vol] 24.0 mmol/L Normal 21.0-32.0 Comment on above: Performed By: #### L 500.4050, L100.0100 #### Laboratory [address] [place], [address] Creatinine [Mass/Vol] 0.75 mg/dL Normal 0.55-1.02 [facility] Comment on above: Result Comment: The validity of the calculated GFR GFRAA in patients over 70 years has not been determined. Clinical correlation is essential. Performed By: #### L 500.4050, L100.0100 #### Laboratory [address] [place], [address] EST GFR - AA 95 mL/min Normal >60 Comment on above: Result Comment: Afri can [place] GFR Calc Performed By: #### L 500.4050, L100.0100 #### Laboratory [address] [place], [address] GAP 8 Normal 5-15 Comment on above: Performed By: #### L 500.4050, L100.0100 #### Laboratory [address] [place], [address] GFR/1.73 sq M.predicted among non-blacks MDRD (S/P/Bld) [Vol rate/Area] 79 mL/min/{1.73_m2} Normal >60 Comment on above: Result Comment: Non- GFR Calc Performed By: #### L 500.4050, L100.0100 #### Laboratory [address] [place], [address] Globulin (S) [Mass/Vol] 3.7 g/dL Normal 2.2-4.2 [facility] Comment on above: Performed By: #### L 500.4050, L100.0100 #### Laboratory [address] [place], [address] Glucose [Mass/Vol] 109 mg/dL High 74-106 [facility] Comment on above: Result Comment: Fast ing Glucose result from 100 to 125 mg/dL suggests IMPAIRED HOMEOSTASIS per A.D.A. criteria. Performed By: #### L 500.4050, L100.0100 #### Laboratory [address] [place], [address] Potassium [Moles/Vol] 3.9 mmol/L Normal 3.5-5.1 [facility] Comment on above: Performed By: #### L 500.4050, L100.0100 #### Laboratory [address] [place], [address] Sodium [Moles/Vol] 140 mmol/L Normal 136-145 [facility] Comment on above: Performed By: #### L 500.4050, L100.0100 #### Laboratory [address] [place], [address] T PROT 7.4 g/dL Normal 6.4-8.2 Comment on above: Performed By: #### L 500.4050, L100.0100 #### Laboratory [address] [place], [address] Urea nitrogen [Mass/Vol] 17 mg/dL Normal 7-18 Comment on above: Performed By: #### L 500.4050, L100.0100 #### Laboratory [address] [place], [address] Eosinophil percentageOrdered By: Yuko Lofton on 11-27-2024 Eosinophils/100 WBC (Bld) 2.2 % 0-5 Erythrocyte distribution wid th ratioOrdered By: Yuko Lofton on 11-27-2024 Erythrocyte distribution width (RBC) [Ratio] 12.8 % 11.6-14.6 Erythrocyte distribution wid th standard deviationOrdered By: Yuko Lofton on 11-27-2024 Erythrocyte distribution width (RBC) [Entitic vol] 42.4 fL 35.1-43.9 Erythrocyte distribution width (RBC) [Ratio] 42.4 fl 35.1-43.9 Estimated glomerular filtrat ion rate (GFR) AmericanOrdered By: Yuko Lofton on 11-27-2024 Estimated GFR (MDRD) Amer 95 mL/min >60 Comment on above: GFR Calc Glomerular filtration rate ( GFR) estimationOrdered By: Yuko Lofton on 11-27-2024 Estimated GFR (MDRD) Non-Af Amer 79 mL/min >60 Comment on above: Non- GFR Calc GFR/1.73 sq M.predicted among non-blacks MDRD (S/P/Bld) [Vol rate/Area] 79 mL/min/{1.73_m2} >60 Comment on above: Non- GFR Calc Glucose measurementOrdered B y: Yuko Lofton on 11-27-2024 Glucose [Mass/Vol] 109 mg/dL High 74-106 [facility] Comment on above: Fasting Glucose resu lt from 100 to 125 mg/dL suggests IMPAIRED HOMEOSTASIS per A.D.A. criteria. Hematocrit Auto (Bld) [Volum e fraction]Ordered By: Yuko Lofton on 11-27-2024 Hematocrit (Bld) [Volume fraction] 38.7 % 37-47 Hemoglobin measurementOrdere d By: Yuko Lofton on 11-27-2024 Hemoglobin (Bld) [Mass/Vol] 12.3 g/dL 12.0-15.0 Immature granulocytes/100 WB C Auto (Bld)Ordered By: Yuko Lofton on 11-27-2024 Immature granulocytes/100 WBC (Bld) 0.300 % 0.0-0.9 Comment on above: IG% - Immature Granu locytes (promyelocytes, myelocytes and metamyelocytes) > 1% indicates that a LEFT SHIFT is Present. Internal Medicine Office Vis itobob 11-27-2024 Internal Medicine Office Visit [facility] [address] [place] [place] [address] OFFICE VISIT Date of Service: 11/27/24 MR#: [id number] Acct: [id number] Name: DAHLIA SILVERMAN Rep #: [id number] : 1945 Provider: Dr. Yuko jewell MD Age/Sex: 79/F Location: [facility] Status: Signed Intake Vital Signs 07/22/24 10:39 09/11/24 10:04 11/27/24 13:42 Height 5 ft 6 in 5 ft 6 in 5 ft 6 in Weight: 168 lb 171 lb BMI 27.1 27.6 BP 134/74 H 144/80 H Blood Pressure Location Lt brachial Rt brachial Position Sitting Sitting Respiration 18 16 Pulse 69 66 Pulse Source Monitor Monitor Temp 98.0 F Temp Source Temporal Pulse Oximetry (%) 96 Oxygen Delivery Method room air Intake Visit Reasons: 3 M FU Chief Complaint: 3 M FU Is patient in pain?: Yes (GENERALIZED DISCOMFORT) Pain scale (1-10): 5 Allergies lisinopril Allergy (Verified 11/27/24 13:38) Cough losartan Allergy (Verified 11/27/24 13:38) Cough Sulfa (Sulfonamide Antibiotics) Adverse Reaction (Verified 11/27/24 13:38) Rash Medications ???Medication ???Instructions ???Recorded ???Confirmed ???Type aspirin 81 mg chewable tablet 81 mg PO DAILY@0800 preventative 0 01/02/20 11/27/24 History amlodipine 5 mg tablet See Rx Instructions .Route 4 11/27/24 Rx .COMPLEX #90 tabs nitroglycerin 0.4 mg sublingual 0.4 mg sublingual Q5-15M PRN chest 04/11/24 11/27/24 Rx tablet pain #25 tabs furosemide 40 mg tablet 40 mg PO .2XWEEK Dieutic #24 tabs 04/12/24 11/27/24 Rx clopidogrel 75 mg tablet 75 mg PO DAILY Heart #90 tabs 08/1711/27/24 Rx metoprolol succinate 50 mg 50 mg PO DAILY #90 TABLETS 4 11/27/24 Rx tablet,extended release 24 hr cholecalciferol (vitamin D3) 1,250 1,250 mcg PO QWEEK #14 caps 01/0611/27/24 Rx mcg (50,000 unit) capsule atorvastatin 40 mg tablet 40 mg PO QHS Cholesterol #90 tabs 10/28/24 11/27/24 Rx budesonide-formoterol HFA 160 2 puff inhalation BID #10.2 grams 11/27/24 11/27/24 Rx mcg-4.5 mcg/actuation aerosol inhaler (Symbicort) doxepin 6 mg tablet 6 mg PO QHS PRN sleep #30 tabs 10/0911/27/24 Rx Have you fallen in the past year?: No PFSH Medical History Abdominal wall strain Eye twitch Pain, eye, right UTI (urinary tract infection) GERD (gastroesophageal reflux disease) Cough Cervical radiculopathy Swallowing difficulty Abnormal mammogram of right breast Breast mass, right Insomnia Right ear pain Contact with and (suspected) exposure to other viral communicable diseases CVA (cerebral vascular accident) Osteoarthritis of right hip Recurrent UTI Congestive heart failure (CHF) Right groin pain Dry mouth Leg cramps Dehydration Dark urine Abdominal pain Right foot pain Flu vaccine need Hoarseness Left shoulder pain Left cervical radiculopathy Abnormal urinalysis Right flank pain Post-menopausal Wears dentures Wears glasses Arthritis High cholesterol TIA (transient ischemic attack) Former smoker Sleep apnea Shortness of breath on exertion Chronic cough History of echocardiogram History of stress test Hypertension Cardiology follow-up encounter History of heart attack Colon cancer screening Arthritis Cataracts, bilateral Osteoporosis Ischemic cardiomyopathy Essential hypertension History of non-ST elevation myocardial infarction (NSTEMI) (01/02/20) Hyperlipidemia COPD (chronic obstructive pulmonary disease) Retinal artery thrombosis, 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) Atherosclerosis of coronary artery of [place] heart without angina pectoris Dyspnea Lung nodule Periodic limb movement DEEPAK (obstructive sleep apnea) Surgical History History of cardiac catheterization History of reconstructive repair of rectocele History of coronary artery stent placement History of lymph node excision History of hysterectomy History of cholecystectomy Family History Father Heart disease Hypertension Sister Heart disease Breast cancer Diabetes Hypertension Sepsis due to urinary tract infection Brother Heart disease Alzheimer's dementia Diabetes Hypertension Mother Cancer Bladder Heart disease Hypertension Social History Smoking Status: Former smoker Tobacco: How many years used: 34 how long ago did patient quit smokin second hand exposure: No alcohol intake: current alcohol intake frequency: holidays/special occasions only substance use type: does not use caffeine: Yes Type: coffee Number of servings: 3 what type of physical activity do you participate in: walking HPI HPI Chief Complaint: 3 M FU Details: DAHLIA SILVERMAN, is a 79 F (more content not included)... Normal Laboratory - Chemistry and C hemistry - challengeOrdered By: Yuko Lofton on 11-27-2024 AST [Catalytic activity/Vol] 19 U/L 15-37 Lymphocytes Auto (Unsp spec) [#/Vol]Ordered By: Yuko Lofton on 11-27-2024 Lymphocytes (Bld) [#/Vol] 2.07 10*3/uL 0.83-4.51 Lymphocytes/100 WBC Auto (Un sp spec)Ordered By: Yuko Lofton on 11-27-2024 Lymphocytes/100 WBC (Bld) 31.0 % 19-41 MCV (mean corpuscular volume ) determinationOrdered By: Yuko Lofton on 11-27-2024 MCV (RBC) [Entitic vol] 90.4 fL 81-99 [facility] Mean corpuscular hemoglobin (MCH) determinationOrdered By: Yuko Lofton on 11-27-2024 MCH (RBC) [Entitic mass] 28.7 pg 27.0-32.0 Mean corpuscular hemoglobin concentration (MCHC) determinationOrdered By: Yuko Lofton on 11-27-2024 MCHC (RBC) [Mass/Vol] 31.8 g/dL Low 32-36 [facility] Mean platelet volume determi nationOrdered By: Yuko Lofton on 11-27-2024 Platelet mean volume (Bld) [Entitic vol] 10.6 fL 6.2-12.0 Monocyte percentageOrdered B y: Yuko Lofton on 11-27-2024 Monocytes/100 WBC (Bld) 7.5 % 0-10 [facility] Neutrophil percentageOrdered By: Yuko Lofton on 11-27-2024 Neutrophils/100 WBC (Bld) 58.6 % 47-70 Nucleated red blood cell per centageOrdered By: Yuko Lofton on 11-27-2024 Nucleated RBC/100 WBC (Bld) [Ratio] 0 % 0-5 Platelet countOrdered By: Ana Lofton on 11-27-2024 Platelets (Bld) [#/Vol] 262 10*3/uL 150-450 Potassium measurementOrdered By: Yuko Lofton on 11-27-2024 Potassium [Moles/Vol] 3.9 mmol/L 3.5-5.1 [facility] RBC Auto (Bld) [#/Vol]Ordere d By: Yuko Lofton on 11-27-2024 RBC (Bld) [#/Vol] 4.28 10*6/uL 4.2-5.4 [facility] Serum anion gap measurementO rdered By: Yuko Lofton on 11-27-2024 Anion gap [Moles/Vol] 8 mmol/L 5-15 [facility] Serum globulin measurementOr dered By: Yuko Lofton on 11-27-2024 Globulin (S) [Mass/Vol] 3.7 g/dL 2.2-4.2 [facility] Serum or plasma alanine quick otransferase (ALT) measurementOrdered By: Yuko Lofton on 11-27-2024 ALT [Catalytic activity/Vol] 24 U/L 13-56 Serum or plasma albumin amanda urement (mass/volume)Ordered By: Yuko Lofton on 11-27-2024 Albumin [Mass/Vol] 3.7 g/dL 3.2-5.0 [facility] Serum or plasma alkaline stanley sphatase measurementOrdered By: Yuko Lofton on 11-27-2024 ALP [Catalytic activity/Vol] 103 U/L 45-117 Serum or plasma calcium amanda urement (mass/volume)Ordered By: Yuko Lofton on 11-27-2024 Calcium [Mass/Vol] 8.9 mg/dL 8.5-10.1 [facility] Serum or plasma creatinine m easurement (mass/volume)Ordered By: Yuko Lofton on 11-27-2024 Creatinine [Mass/Vol] 0.75 mg/dL 0.55-1.02 [facility] Comment on above: The validity of the calculated GFR & GFRAA in patients over 70 years has not been determined. Clinical correlation is essential. Serum or plasma urea nitroge n measurement (mass/volume)Ordered By: Yuko Lofton on 11-27-2024 Urea nitrogen [Mass/Vol] 17 mg/dL 7-18 Sodium levelOrdered By: Robby mick Rolly on 11-27-2024 Sodium [Moles/Vol] 140 mmol/L 136-145 [facility] Total proteinOrdered By: Randal benitojonah Lofton on 11-27-2024 Protein [Mass/Vol] 7.4 g/dL 6.4-8.2 [facility] White blood cell (WBC) count Ordered By: Yuko Lofton on 11-27-2024 WBC (Bld) [#/Vol] 6.7 10*3/uL 4.4-11.0 [facility] FL PAIN MANAGEMENTon 025 [place] PAIN MANAGEMENT These images are not reportable by radiology and will not be interpreted by Radiologists. [facility] No Panel Informationon 10-25 [facility] Work Phone: These images are not reportable by radiology and will not be interpreted by Radiologists. [facility] Work Phone: Radiology Study observation (narrative) [facility] Work Phone: XR PELVIS 1-2 VIEWSon 2023 XR PELVIS 1-2 VIEWS Interpreted By: Heber Cleary, STUDY: XR PELVIS 1-2 VIEWS INDICATION: Signs/Symptoms:right hip pain. COMPARISON: None ACCESSION NUMBER(S): [id number] ORDERING CLINICIAN: IVORY CARLOS FINDINGS: Moderate osteoarthritis bilateral hips and sacroiliac joints. No evidence of fracture or lesion. IMPRESSION: Moderate osteoarthritis bilateral hips and sacroiliac joints. No evidence of fracture or lesion. Signed by: Heber Cleary 10/04/2024 6:23 PM Dictation workstation: [id number] [facility] Urgent Care Visit Reporton 1 11-25-2023 Urgent Care Visit Report [facility] [address], [address] [place] [address] OFFICE VISIT Date of Service: 09/24/24 MR#: [id number] Acct: [id number] Name: DAHLIA SILVERMAN Rep #: [id number] : 1945 Provider: LINDA Nicholson Age/Sex: 79/F Location: [facility] Status: Signed Intake Vital Signs 09/11/24 10:04 09/24/24 11:45 Height 5 ft 6 in Weight: 168 lb BMI 27.1 BP 134/74 H 140/72 H Blood Pressure Location Lt brachial Lt brachial Position Sitting Sitting Respiration 18 12 Pulse 69 75 Pulse Source Monitor NIBP Temp 97.9 F Temp Source Oral Pulse Oximetry (%) 95 Oxygen Delivery Method room air Intake Visit Reasons: CONCERN FOR PULLED GROIN MUSCLE Chief Complaint: right groin pain Scheduling Administrator Required: No Is patient in pain?: Yes Pain scale (1-10): 8 Allergies lisinopril Allergy (Verified 09/24/24 11:42) Cough losartan Allergy (Verified 09/24/24 11:42) Cough Sulfa (Sulfonamide Antibiotics) Adverse Reaction (Verified 09/24/24 11:42) Rash Medications ???Medication ???Instructions ???Recorded ???Confirmed ???Type aspirin 81 mg chewable tablet 81 mg PO DAILY@0800 preventative 01/02/20 09/24/24 History Lactobacillus acidophilus 500 500,000,000 cell PO 03/01/24 09/24/24 History million cell capsule amlodipine 5 mg tablet See Rx Instructions .Route 04/11/24 09/24/24 Rx .COMPLEX #90 tabs nitroglycerin 0.4 mg sublingual 0.4 mg sublingual Q5-15M PRN chest 04/11/24 09/24/24 Rx tablet pain #25 tabs furosemide 40 mg tablet 40 mg PO .2XWEEK Dieutic #24 tabs 04/12/24 09/24/24 Rx atorvastatin 40 mg tablet 40 mg PO QHS Cholesterol #90 tabs 08/01/24 09/24/24 Rx budesonide-formoterol HFA 160 2 puff inhalation BID #10.2 grams 08/13/24 09/24/24 Rx mcg-4.5 mcg/actuation aerosol inhaler (Symbicort) clopidogrel 75 mg tablet 75 mg PO DAILY Heart #90 tabs 09/11/24 09/24/24 Rx metoprolol succinate 50 mg 50 mg PO DAILY #90 TABLETS 09/11/24 09/24/24 Rx tablet,extended release 24 hr cholecalciferol (vitamin D3) 1,250 1,250 mcg PO QWEEK #14 caps 09/17/24 09/24/24 Rx mcg (50,000 unit) capsule Is last menstrual period known: No Post menopausal: Yes Patient : No Have you fallen in the past year?: No Nurse's Note: patient here for right groin pain, stated she picked up pumpkins to throw them over her fence and woke up on Monday with the pain, states gets worse when she bends over. [facility] Medical History (Updated 09/24/24 @ 12:42 by Coleman MCKEON, LINDA) Abdominal wall strain Eye twitch Pain, eye, right UTI (urinary tract infection) GERD (gastroesophageal reflux disease) Cough Cervical radiculopathy Swallowing difficulty Abnormal mammogram of right breast Breast mass, right Insomnia Right ear pain Contact with and (suspected) exposure to other viral communicable diseases CVA (cerebral vascular accident) Osteoarthritis of right hip Recurrent UTI Congestive heart failure (CHF) Right groin pain Dry mouth Leg cramps Dehydration Dark urine Abdominal pain Right foot pain Flu vaccine need Hoarseness Left shoulder pain Left cervical radiculopathy Abnormal urinalysis Right flank pain Post-menopausal Wears dentures Wears glasses Arthritis High cholesterol TIA (transient ischemic attack) Former smoker Sleep apnea Shortness of breath on exertion Chronic cough History of echocardiogram History of stress test Hypertension Cardiology follow-up encounter History of heart attack Colon cancer screening Arthritis Cataracts, bilateral Osteoporosis Ischemic cardiomyopathy Essential hypertension History of non-ST elevation myocardial infarction (NSTEMI) (01/02/20) Hyperlipidemia COPD (chronic obstructive pulmonary disease) Retinal artery thrombosis, 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) Atherosclerosis of coronary artery of [place] heart without angina pectoris Dyspnea Lung nodule Periodic limb movement DEEPAK (obstructive sleep apnea) Surgical History History of cardiac catheterization History of reconstructive repair of rectocele History of coronary artery stent placement History of lymph node excision History of hysterectomy History of cholecystectomy Family History Father Heart disease Hypertension Sister Heart disease Breast cancer Diabetes Hypertension Sepsis due to urinary tract infection Brother Heart disease Alzheimer's dementia Diabetes Hypertension Mother Cancer Bladder Heart disease Hypertension Social History Smoking Status: Former smoker Tobacco: How many years used: 34 how long ago did patient quit smokin second hand exposu (more content not included)... Normal Cardiology Visit Reporton Cardiology Visit Report [facility] [address] [place] [address] OFFICE VISIT Date of Service: 09/11/24 MR#: [id number] Acct: [id number] Name: DAHLIA SILVERMAN Rep #: [id number] : 1945 Provider: LINDA Chaudhary Age/Sex: 79/F Location: [facility] Status: Signed HPI HPI History of Present Illness Details: This is a 79-year-old female who presents here today for a cardiovascular follow-up. She has a history of coronary artery disease with stenting to her LAD and RCA in 2019 for a totally occluded left anterior descending artery and high-grade right coronary artery lesion.. She did present with a non-ST elevation myocardial infarction at that time. She did undergo a cardiac catheterization in December 2019 demonstrating an ejection fraction of 30 to 35% with anterior hypokinesis left main demonstrating mild luminal irregularities, left anterior descending artery with mild luminal irregularities in the previous the placed stent was noted to be patent, circumflex artery with mild luminal irregularities in the right coronary artery also with luminal irregularities. The plan was for her to continue medical therapy. She also has a history of hypertension and hyperlipidemia. She did have an echocardiogram performed in October 2020 demonstrating an ejection fraction of 40% with stage I diastolic dysfunction. For shortness of breath earlier this year she underwent a diagnostic stress test which demonstrated mid to distal anterior infarct with apical infarct. No ischemia. Left ventricular systolic dysfunction present. Echocardiogram at that time demonstrated an ejection fraction of 45%. Similar to previous. Her biggest issue is her back pain. She has not been taking her diuretic routinely d/t life issues. She does not use compression stockings. She does sometimes has lightheadedness. She does not have any palpitations. She does not have any chest pain or SOB. Intake Vital Signs 05/27/24 14:52 07/22/24 10:39 09/11/24 10:04 Height 5 ft 6 in 5 ft 6 in 5 ft 6 in Weight: 168 lb BMI 27.1 BP 134/74 H Blood Pressure Location Lt brachial Position Sitting Respiration 18 Pulse 69 Pulse Source Monitor Intake Visit Reasons: 6 m Scheduling Administrator Required: No Is patient in pain?: No Allergies lisinopril Allergy (Verified 09/11/24 10:05) Cough losartan Allergy (Verified 09/11/24 10:05) Cough Sulfa (Sulfonamide Antibiotics) Adverse Reaction (Verified 09/11/24 10:05) Rash Medications ???Medication ???Instructions ???Recorded ???Confirmed ???Type aspirin 81 mg chewable tablet 81 mg PO DAILY@0800 preventative 01/02/20 09/11/24 History Lactobacillus acidophilus 500 500,000,000 cell PO 03/01/24 09/11/24 History million cell capsule amlodipine 5 mg tablet See Rx Instructions .Route 04/11/24 09/11/24 Rx .COMPLEX #90 tabs nitroglycerin 0.4 mg sublingual 0.4 mg sublingual Q5-15M PRN chest 06/27/24 11/27/24 Rx tablet pain #25 tabs furosemide 40 mg tablet 40 mg PO .2XWEEK Dieutic #24 tabs 04/12/24 09/11/24 Rx cholecalciferol (vitamin D3) 1,250 1,250 mcg PO QWEEK #14 caps 06/13/24 09/11/24 Rx mcg (50,000 unit) capsule atorvastatin 40 mg tablet 40 mg PO QHS Cholesterol #90 tabs 08/01/24 09/11/24 Rx budesonide-formoterol HFA 160 2 puff inhalation BID #10.2 grams 08/13/24 09/11/24 Rx mcg-4.5 mcg/actuation aerosol inhaler (Symbicort) clopidogrel 75 mg tablet 75 mg PO DAILY Heart #90 tabs 09/11/24 09/11/24 Rx metoprolol succinate 50 mg 50 mg PO DAILY #90 TABLETS 09/11/24 09/11/24 Rx tablet,extended release 24 hr Have you fallen in the past year?: No [facility] Medical History Eye twitch Pain, eye, right UTI (urinary tract infection) GERD (gastroesophageal reflux disease) Cough Cervical radiculopathy Swallowing difficulty Abnormal mammogram of right breast Breast mass, right Insomnia Right ear pain Contact with and (suspected) exposure to other viral communicable diseases CVA (cerebral vascular accident) Osteoarthritis of right hip Recurrent UTI Congestive heart failure (CHF) Right groin pain Dry mouth Leg cramps Dehydration Dark urine Abdominal pain Right foot pain Flu vaccine need Hoarseness Left shoulder pain Left cervical radiculopathy Abnormal urinalysis Right flank pain Post-menopausal Wears dentures Wears glasses Arthritis High cholesterol TIA (transient ischemic attack) Former smoker Sleep apnea Shortness of breath on exertion Chronic cough History of echocardiogram History of stress test Hypertension Cardiology follow-up encounter History of heart attack Colon cancer screening Arthritis Cataracts, bilateral Osteoporosis Ischemic cardiomyopathy Essential hypertension Hist (more content not included)... Normal XR CERVICAL SPINE 2-3 VIEWSo n 07-25-2024 XR CERVICAL SPINE 2-3 VIEWS Interpreted By: Lizbeth Omalley, STUDY: Cervical spine, 3 views. INDICATION: Signs/Symptoms:left shoulder and arm pain. COMPARISON: None. ACCESSION NUMBER(S): [id number] ORDERING CLINICIAN: IVORY CARLOS FINDINGS: There is mild levoscoliosis centered in [...] Lizbeth Omalley 07/26/2024 9:30 PM Dictation workstation: [id number] [facility] Comment on above: Order Comment: AP an d lateral cervical XR XR SHOULDER LEFT 2+ VIEWSon 07-25-2024 XR SHOULDER LEFT 2+ VIEWS Interpreted By: Lizbeth Omalley, STUDY: Left shoulder, five views. INDICATION: Signs/Symptoms:left shoulder and arm pain. COMPARISON: None. ACCESSION NUMBER(S): [id number] ORDERING CLINICIAN: IVORY CARLOS FINDINGS: No acute fracture or malalignment. Mild glenohumeral and acromioclavicular joint degenerative changes with small osteophytes. Soft tissues are unremarkable. IMPRESSION: 1. 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 MACRO: None. Signed by: Lizbeth Omalley 07/26/2024 9:32 PM Dictation workstation: [id number] [facility] APTT (plasma)on 09-26-2023 aPTT Coag (Bld) [Time] 32 s [facility] Basic metabolic 2000 panelon 09-26-2023 Anion gap [Moles/Vol] 7 mmol/L Low 10 - 2 0 mmol/L [facility] Calcium [Mass/Vol] 8.8 mg/dL 8.4 - 10. 2 mg/dL [facility] Chloride [Moles/Vol] 110 mmol/L High 98 - 10 8 mmol/L [facility] Creatinine [Mass/Vol] 0.76 mg/dL 0.60 - 1.20 mg/dL [facility] GFR/1.73 sq M.predicted CKD-EPI (S/P/Bld) [Vol rate/Area] 80 - PINF [facility] Comment on above: Estimated GFR was ca lculated using the 2020 CKD-EPI creatinine equation. Glucose [Mass/Vol] 98 mg/dL 65 - 99 mg/dL [facility] HCO3 [Moles/Vol] 28 mmol/L 21 - 32 mmol/L [facility] Interpretation and review of laboratory results Abnormal [facility] Potassium [Moles/Vol] 3.6 mmol/L 3.5 - 5.1 mmol/L [facility] Sodium [Moles/Vol] 141 mmol/L 135 - 145 mmol/L [facility] Urea nitrogen [Mass/Vol] 15 mg/dL 8 - 25 mg/d L [facility] Urea nitrogen/Creatinine [Mass ratio] 19.7 mg/mg 10.0 - 20.0 [facility] has implemented the eGFR calculation approach that does not have a coefficient for race that conforms to the NKF-ASN Task Force Recommendations. [facility] CBC Auto Differentialon 09-15 Basophils (Bld) [#/Vol] 0.03 10*3/uL [facility] Basophils/100 WBC (Bld) 0.4 % [facility] Eosinophils (Bld) [#/Vol] 0.17 10*3/uL [facility] Eosinophils/100 WBC (Bld) 2.3 % [facility] Erythrocyte distribution width (RBC) [Entitic vol] 12.6 % 11.6 - 14.8 % [facility] Hematocrit (Bld) [Volume fraction] 36.8 % 36.0 - 46.0 % [facility] Hemoglobin (Bld) [Mass/Vol] 12.0 g/dL 12.0 - 16.0 g/dL [facility] Immature granulocytes (Bld) [#/Vol] 0.03 10*3/uL [facility] Immature granulocytes/100 WBC (Bld) 0.40 % [facility] Comment on above: The IG parameter is the percentage of metamyelocytes, myelocytes and promyelocytes. An immature granulocyte count (IG) of 1% or more suggests the possibility of infection, an IG count of 3% is very likely related to an infection. Lymphocytes (Bld) [#/Vol] 2.24 10*3/uL [facility] Lymphocytes/100 WBC (Bld) 29.8 % [facility] MCH (RBC) [Entitic mass] 29.1 pg 26. 0 - 34.0 pg [facility] MCHC (RBC) [Mass/Vol] 32.6 g/dL 31.0 - 37.0 g/dL [facility] MCV (RBC) [Entitic vol] 89.1 fL 80.0 - 100.0 fL [facility] Monocytes (Bld) [#/Vol] 0.60 10*3/uL [facility] Monocytes/100 WBC (Bld) 8.0 % [facility] Neutrophils (Bld) [#/Vol] 4.45 10*3/uL [facility] Neutrophils/100 WBC (Bld) 59.1 % [facility] Nucleated RBC (Bld) [#/Vol] 0.00 10*3/uL [facility] Nucleated RBC/100 WBC (Bld) [Ratio] 0.0 % [facility] Platelet mean volume (Bld) [Entitic vol] 10.3 fL 9.4 - 12.4 fL [facility] Platelets (Bld) [#/Vol] 217 10*3/uL [facility] RBC (Bld) [#/Vol] 4.13 10*6/uL [facility] WBC (Bld) [#/Vol] 7.52 10*3/uL [facility]/INFLU[facility]ZA A,B [facility] 09-26-2023 SARS-CoV-2 (COVID-19) Ab IA Ql SARS-COV-2 (VINICIUS): Not Detected INFLUENZA A (VINICIUS): Not Detected INFLUENZA B (VINICIUS): Not Detected Normal Not Detected [facility] Comment on above: Order Comment: This [...] at the following links: For Healthcare Providers: https://www.fda.gov/media/942932/download For Patients: https://www.fda.gov/media/637446/download Performed By: #### L [id number] #### [facility] [address] [place] [address] Raffaele Lewis M[address] [id number] CT Abdomen and Pelvis Daxa Lord 09-26-2023 1. No pulmonary embolic disease. [...] 8. Diverticulosis without diverticulitis. 9. Previous hysterectomy. [employer] Workstation ID: [id number] [employer] [facility] EXAMINATION: CT PULMONARY ANGIOGRAM, ENHANCED CT SCAN OF THE ABDOMEN AND PELVIS, 09/26/2023 HISTORY: Injury/Trauma or Illness?:Illness/Othe r How long have you had these symptoms (acute/chronic)?:Acut e Left lower chest pain; PE suspected; r/o [...] disease with vacuum disc phenomena at L5-S1. [employer] Lynette Mae MD - 09/26/2023 EXAMINATION: CT PULMONARY ANGIOGRAM, ENHANCED CT SCAN OF THE ABDOMEN AND PELVIS, 09/26/2023 HISTORY: Injury/Trauma or Illness?:Illness/Othe r How long have you had these symptoms (acute/chronic)?:Acut e Left lower chest pain; PE suspected; r/o [...] 9. Previous hysterectomy. KKV/cdr Workstation ID: [id number] [facility] Radiology Study observation (narrative) [place] CT Abdomen and Pelvis W cont rast IVOrdered By: Lynette Olivarez on 09-26-2023 [facility] Work Phone: CTA PULM ART AND CT ABD PELV IS WITH IV CONTRASTon 09-26-[address] ABD PELVIS WITH IV CONTRAST EXAMINATION: CT PULMONARY ANGIOGRAM, ENHANCED CT SCAN OF THE ABDOMEN AND PELVIS, 09/26/2023 HISTORY: Injury/Trauma or Illness?:Illness/Othe r How long have you had these symptoms (acute/chronic)?:Acut e Left lower chest pain; PE suspected; r/o [...] 8. Diverticulosis without diverticulitis. 9. Previous hysterectomy. [employer] [facility] Workstation ID: [id number] Dictated by: LYNETTE OLIVAREZ on MonSep 26, 2023 9:48:40 AM EST Transcribed by: LINDA DUMONT on MonSep 26, 2023 10:28:23 AM EST Finalized by: LYNETTE OLIVAREZ on MonSep 26, 2023 11:52:25 AM EST Normal [facility] Comment on above: Order Comment: Injur y/Trauma or Illness?:Illness/Other How long have you had these symptoms (acute/chronic)?:Acute Reason for exam?:left lower chest pain and general abdominal pain Type of Exam?:Initial Additional signs and symptoms?:n/a D-Dimer, Quantitativeon 09-15 Fibrin D-dimer FEU (PPP) [Mass/Vol] 0.48 [facility] A D-dimer concentration of <0.5 micrograms per milliliter FEU is considered a low probability for pulmonary embolus (PE) and deep venous thrombosis (DVT). Results of this test should always be interpreted in conjunction with the patient's medical history,clinical presentation, and other findings. Clinical diagnosis should not be based on the results of the D-dimer alone. [facility] EKGon 09-26-2023 [facility] HbA1c (Bld) [Mass fraction]O rdered By: Isabel Vallejo on 09-26-2023 Average glucose Estimated from glycated hemoglobin (Bld) [Mass/Vol] 114 mg/dL 68 - 114 mg/dL [facility] Interpretation and review of laboratory results Normal [facility] Normal: 4.0% - 5.6% Increased risk for diabetes: 5.7% - 6.4% Diabetes: >= 6.5% Pediatrics: No established reference range Estimated average glucose: 68-114 mg/dL [facility] Hemoglobin A1c levelOrdered By: Isabel Vallejo on 09-26-2023 HbA1c (Bld) [Mass fraction] 5.6 % 4.0 - 5.6 % [facility] Hepatic function 2000 panelo n 09-26-2023 Albumin [Mass/Vol] 3.4 g/dL 3.2 - 5.2 g/dL [facility] ALP [Catalytic activity/Vol] 91 U/L 40 - 150 U/L [facility] ALT [Catalytic activity/Vol] 23 U/L 14 - 65 U/L [facility] AST [Catalytic activity/Vol] 13 U/L 0-35 U/L [facility] Bilirubin [Mass/Vol] 0.3 mg/dL 0.0 - 1 .3 mg/dL [facility] Bilirubin.conjugated [Mass/Vol] mg/dL 0.0 - 0.4 mg/dL [facility] Interpretation and review of laboratory results Normal [facility] Protein [Mass/Vol] 6.7 g/dL 6.0 - 8.0 g/dL [facility] INR Coag (PPP) [Relative shannon e]on 09-26-2023 PT Coag (PPP) [Time] 13.5 s [facility] During the induction phase of oral anticoagulation, the INR may not reflect the anticoagulation status of the patient. Therapeutic ranges for INR's are: Most clinical situations: INR 2.0-3.0 Mechanical Prosthetic Valve: INR 2.5-3.5 Critical: INR >5.0 [facility] Influenza virus A and B RNA and SARS-CoV-2 (COVID-19) N gene panel GODFREY+probe (Resp)Ordered By: Marlys Pastor on 09-26-2023 FLUAV RNA GODFREY+probe Ql (Unsp spec) Not detected Not Detected [facility] FLUBV RNA GODFREY+probe Ql (Unsp spec) Not detected Not Detected [facility] Interpretation and review of laboratory results Normal [facility] SARS-CoV-2 (COVID-19) RNA GODFREY+probe Ql (Resp) Not detected Not Detected [facility] This test was performed under the FDA's [...] at the following links: For Healthcare Providers: https://www.fda.gov/m edia/853584/download For Patients: https://www.fda.gov/m edia/631177/download [facility] Lipaseon 09-26-2023 Lipase [Catalytic activity/Vol] 35 U/L 13-75 U/L [facility] Lipid 1996 panelon Cholesterol [Mass/Vol] 177 mg/dL 100 - 199 mg/dL [facility] Comment on above: National Cholesterol Education Program Guidelines: Cholesterol Desirable: <200 mg/dL Borderline High: 200-239 mg/dL High: greater than or equal to 240 mg/dL Cholesterol in HDL [Mass/Vol] 79 mg/dL 40 - 59 mg/dL [facility] Comment on above: National Cholesterol Education Program Guidelines: HDL Cholesterol Low: <40 mg/dL Near Optimal: 40-59 mg/dL High: greater than or equal to 60 mg/dL Cholesterol in LDL [Mass/Vol] 83 mg/dL 10 - 130 mg/dL [facility] Comment on above: National Cholesterol Education Program Guidelines: LDL Cholesterol Optimal: <100 mg/dL Near Optimal/above Optimal: 100-129 mg/dL Borderline High: 130-159 mg/dL High: 160-189 mg/dL Very High: greater than or equal to 190 mg/dL Cholesterol non HDL [Mass/Vol] 98 mg/dL [facility] Comment on above: National Cholesterol Education Program Guidelines: NON HDL Cholesterol Desirable: <130 mg/dL Borderline High: 130-159 mg/dL High: 160-189 mg/dL Very High: > or = 190 mg/dL Cholesterol.total/Choles terol in HDL [Mass ratio] 2.2 {ratio} ratio [facility] Comment on above: Female Cholesterol/H DL Ratio: Average risk: 4.4 1/2 average risk: 3.3 2 x average risk: 7.1 Triglyceride [Mass/Vol] 74 mg/dL 30 - 150 mg/dL [facility] Comment on above: National Cholesterol Education Program Guidelines: Triglyceride Normal: <150 mg/dL Borderline High: 150-199 mg/dL High: 200-499 mg/dL Very High: greater than or equal to 500 mg/dL Magnesium levelon 09-26-2023 Magnesium [Mass/Vol] 2.2 mg/dL 1.6 - 2 .4 mg/dL [facility] NT proBNPon 09-26-2023 Natriuretic peptide.B prohormone N-Terminal [Mass/Vol] 728 pg/mL High 0 - 300 pg/mL [facility] Natriuretic peptide.B prohor shankar N-Terminal [Mass/Vol]on 09-26-2023 Interpretation and review of laboratory results Abnormal [facility] Pride Study Cut-offs Rule In: < /= 50 Years >450 pg/mL 51 Years - 75 Years >900 pg/mL 76 Years - 99 Years >1800 pg/mL Rule Out: All patients <300 pg/mL [facility] No Panel Informationon 09-26 Interpretation and review of laboratory results Normal [facility] Interpretation and review of laboratory results Normal [facility] Interpretation and review of laboratory results Normal [facility] PT/INR nowon 09-26-2023 INR Coag (PPP) [Relative time] 1.0 {INR} 0.8 - 1.1 [facility] Phosphoruson 09-26-2023 Phosphate [Mass/Vol] 4.0 mg/dL 2.8 - 4 .1 mg/dL [facility] TSH DL <= 0.005 mIU/L Qnon 1 11-27-2022 TSH Qn 2.26 m[IU]/L [facility] Troponinon 09-26-2023 Troponin I 11 ng/L NINF - 59 ng/L [facility] Troponin I Interpretation Normal [facility] Troponin x 2 (Now and Repeat in 3 hours)on 09-26-2023 Delta Difference Troponin I -1 ng/L < -/+ 12 change [facility] Troponin I Delta Change No biomarker evidence of cardiac injury. [facility] Troponin I 10 ng/L NINF - 59 ng/L [facility] Delta Difference Troponin I 0 ng/L < -/+ 12 change [facility] Troponin I Delta Change No biomarker evidence of cardiac injury. [facility] Troponin I 11 ng/L NINF - 59 ng/L [facility] aPTT Coag (Bld) [Time]on Interpretation and review of laboratory results Normal [facility] Therapeutic range fo r APTT's is 68 - 104 seconds [facility] XR CHEST PA/APon 09-25-2023 XR CHEST PA/AP [...] size. Dextroconvex curvature of the thoracic spine. [id number] thoracic spondylosis. IMPRESSION: No acute cardiopulmonary process. Workstation ID: [id number] Dictated by: AMBER TURPIN on MonSep 25, 2023 2:42:15 PM EST Transcribed by: AMBER TURPIN on MonSep 25, 2023 2:42:15 PM EST Finalized by: AMBER TURPIN on MonSep 25, 2023 2:42:[address] [facility] Comment on above: Order Comment: Injur y/Trauma or Illness?:Illness/Other How long have you had these symptoms (acute/chronic)?:Acute Reason for exam?:chest pain History of cancer?:n Surgeries, chemotherapy, or radiation?:n Type of Exam?:Initial Additional signs and symptoms?:none Absolute lymphocyte countOrd ered By: Yuko Lofton on 08-11-2023 Lymphocytes Auto (Unsp spec) [#/Vol] 2.00 10*3/uL 0.83-4.51 Basophil percentageOrdered B y: Yuko Lofton on 08-11-2023 Basophils/100 WBC (Bld) 0.6 % 0-1 [facility] Bilirubin [Mass/Vol] 0.40 mg/dL 0.20-1.00 [facility] Comment on above: For patients on eltr ombopag therapy, use of Dimension [place] TBIL is not recommended. Chloride [Moles/Vol] 107 mmol/L 98-107 [facility] Cholesterol [Mass/Vol] 174 mg/dL <200 [facility] Comment on above: <200 mg/dL Desirable 200-240 mg/dL Borderline >240 mg/dL High Risk Eosinophils/100 WBC (Bld) 2.6 % 0-5 Glucose [Mass/Vol] 89 mg/dL 74-106 [facility] Neutrophils (Bld) [#/Vol] 3.9 10*3/uL 2.0-7.7 Neutrophils/100 WBC (Bld) 58.3 % 47-70 Potassium [Moles/Vol] 4.6 mmol/L 3.5-5.1 [facility] Protein [Mass/Vol] 7.5 g/dL 6.4-8.2 [facility] Sodium [Moles/Vol] 141 mmol/L 136-145 [facility] Triglyceride [Mass/Vol] 67 mg/dL <199 [facility] Comment on above: The drugs N-Acetylcy steine and Metamizole may falsely depress this assay.Serum Triglycerides Reference Interval Normal <150 mg/dL Borderline high 150 - 199 mg/dL High 200 - 499 mg/dL Very High > or = 500 mg/dL WBC (Bld) [#/Vol] 6.7 10*3/uL 4.4-11.0 [facility] Blood erythrocytes count (nu mber/volume)Ordered By: Yuko Lofton on 08-11-2023 RBC (Bld) [#/Vol] 4.50 10*6/uL 4.2-5.4 [facility] Blood hemoglobin measurement (mass/volume)Ordered By: Yuko Lofton on 08-11-2023 Hemoglobin (Bld) [Mass/Vol] 12.9 g/dL 12.0-15.0 Blood lymphocytes/100 leukoc ytesOrdered By: Yuko Lofton on 08-11-2023 Lymphocytes/100 WBC (Bld) 30.0 % 19-41 Blood monocytes/100 leukocyt esOrdered By: Yuko Lofton on 08-11-2023 Monocytes/100 WBC (Bld) 8.0 % 0-10 [facility] Blood platelet mean volumeOr dered By: Yuko Lofton on 08-11-2023 Platelet mean volume (Bld) [Entitic vol] 10.7 fL 6.2-12.0 Determination of erythrocyte mean corpuscular volume (MCV)Ordered By: Yuko Lofton on 08-11-2023 MCV (RBC) [Entitic vol] 92.0 fL 81-99 [facility] Direct bilirubinOrdered By: Yuko Lofton on 08-11-2023 Bilirubin.direct [Mass/Vol] 0.09 mg/dL 0.00-0.30 Hematocrit Auto (Bld) [Volum e fraction]Ordered By: Yuko Lofton on 08-11-2023 Hematocrit (Bld) [Volume fraction] 41.4 % 37-47 Laboratory - Chemistry and C hemistry - challengeOrdered By: Yuko Lofton on 08-11-2023 ALP [Catalytic activity/Vol] 93 U/L 45-117 ALT [Catalytic activity/Vol] 23 U/L 13-56 CO2 [Moles/Vol] 28.0 mmol/L 21.0-32.0 Globulin (S) [Mass/Vol] 3.8 g/dL 2.2-4.2 [facility] Urea nitrogen/Creatinine [Mass ratio] 20.4 mg/mg 10-20 Laboratory - Hematology and Cell countsOrdered By: Yuko Lofton on 08-11-2023 Erythrocyte distribution width (RBC) [Entitic vol] 43.0 fL 35.1-43.9 Erythrocyte distribution width (RBC) [Ratio] 12.8 % 11.6-14.6 Immature granulocytes/100 WBC (Bld) 0.500 % 0.0-0.9 Comment on above: IG% - Immature Granu locytes (promyelocytes, myelocytes and metamyelocytes) > 1% indicates that a LEFT SHIFT is Present. MCH (RBC) [Entitic mass] 28.7 pg 27.0-32.0 Nucleated RBC/100 WBC (Bld) [Ratio] 0 % 0-5 MCHC Auto (RBC) [Mass/Vol]Or dered By: Yuko Lofton on 08-11-2023 MCHC (RBC) [Mass/Vol] 31.2 g/dL 32-36 [facility] No Panel InformationOrdered By: Yuko Lofton on 08-11-2023 Estimated GFR (MDRD) Amer 91 mL/min >60 Comment on above: GFR Calc Estimated GFR (MDRD) Non-Af Amer 75 mL/min >60 Comment on above: Non- GFR Calc Platelets bldOrdered By: Randal tavo Rolly on 08-11-2023 Platelets (Bld) [#/Vol] 271 10*3/uL 150-450 Serum or plasma albumin amanda urement (mass/volume)Ordered By: Yuko Lofton on 08-11-2023 Albumin [Mass/Vol] 3.7 g/dL 3.2-5.0 [facility] Serum or plasma albumin/glob ulin mass ratioOrdered By: Yuko Lofton on 08-11-2023 Albumin/Globulin [Mass ratio] 1.0 {ratio} 0.9-2.4 Serum or plasma calcium amanda urement (mass/volume)Ordered By: Yuko Lofton on 08-11-2023 Calcium [Mass/Vol] 9.3 mg/dL 8.5-10.1 [facility] Serum or plasma cholesterol in HDL measurement (mass/volume)Ordered By: Yuko Lofton on 08-11-2023 Cholesterol in HDL [Mass/Vol] 81 mg/dL >40 Comment on above: The drugs N-Acetylcy steine and Metamizole may falsely depress this assay. Reference Range HDL <40 mg/dL Low HDL Cholesterol HDL >or= 60 mg/dL High HDL Cholesterol Serum or plasma cholesterol in VLDL measurement (mass/volume)Ordered By: Yuko Lofton on 08-11-2023 Cholesterol in VLDL [Mass/Vol] 13 mg/dL 5-40 Serum or plasma creatinine m easurement (mass/volume)Ordered By: Yuko Lofton on 08-11-2023 Creatinine [Mass/Vol] 0.78 mg/dL 0.55-1.02 [facility] Comment on above: The validity of the calculated GFR & GFRAA in patients over 70 years has not been determined. Clinical correlation is essential. Serum or plasma low density lipoprotein (LDL) cholesterol measurement (mass/volume)Ordered By: Yuko Lofton on 08-11-2023 Cholesterol in LDL [Mass/Vol] 80 mg/dL 0-130 Serum or plasma urea nitroge n measurement (mass/volume)Ordered By: Yuko Lofton on 08-11-2023 Urea nitrogen [Mass/Vol] 16 mg/dL 7-18 Thin prep Papanicolaou smear with manual screeningOrdered By: Yuko Lofton on 08-11-2023 Thin prep Papanicolaou smear with manual screening 11 U/L 15-37 Thin prep Papanicolaou smear with manual screening 6 5-15 No Panel Informationon 06-16 POC SARS CoV-2 Antigen Positive [facility] No Panel Informationon 06-13 POC SARS CoV-2 Antigen Negative [facility] Basophil percentageOrdered B y: Carisa Carty on 12-05-2022 Bilirubin [Mass/Vol] 0.40 mg/dL 0.20-1.00 [facility] Comment on above: For patients on eltr ombopag therapy, use of Dimension [place] TBIL is not recommended. Cholesterol [Mass/Vol] 187 mg/dL <200 [facility] Comment on above: <200 mg/dL Desirable 200-240 mg/dL Borderline >240 mg/dL High Risk Protein [Mass/Vol] 7.6 g/dL 6.4-8.2 [facility] Triglyceride [Mass/Vol] 117 mg/dL <199 [facility] Comment on above: The drugs N-Acetylcy steine and Metamizole may falsely depress this assay.Serum Triglycerides Reference Interval Normal <150 mg/dL Borderline high 150 - 199 mg/dL High 200 - 499 mg/dL Very High > or = 500 mg/dL Direct bilirubinOrdered By: Carisa Carty on 12-05-2022 Bilirubin.direct [Mass/Vol] 0.09 mg/dL 0.00-0.30 Laboratory - Chemistry and C hemistry - challengeOrdered By: Carisa Carty on 12-05-2022 ALP [Catalytic activity/Vol] 89 U/L 45-117 ALT [Catalytic activity/Vol] 19 U/L 13-56 Globulin (S) [Mass/Vol] 3.9 g/dL 2.2-4.2 [facility] Serum or plasma albumin amanda urement (mass/volume)Ordered By: Carisa Carty on 12-05-2022 Albumin [Mass/Vol] 3.7 g/dL 3.2-5.0 [facility] Serum or plasma cholesterol in HDL measurement (mass/volume)Ordered By: Carisa Carty on 12-05-2022 Cholesterol in HDL [Mass/Vol] 78 mg/dL >40 Comment on above: The drugs N-Acetylcy steine and Metamizole may falsely depress this assay. Reference Range HDL <40 mg/dL Low HDL Cholesterol HDL >or= 60 mg/dL High HDL Cholesterol Serum or plasma cholesterol in VLDL measurement (mass/volume)Ordered By: Carisa Carty on 12-05-2022 Cholesterol in VLDL [Mass/Vol] 23 mg/dL 5-40 Serum or plasma low density lipoprotein (LDL) cholesterol measurement (mass/volume)Ordered By: Carisa Carty on 12-05-2022 Cholesterol in LDL [Mass/Vol] 86 mg/dL 0-130 Thin prep Papanicolaou smear with manual screeningOrdered By: Carisa Carty on 12-05-2022 Thin prep Papanicolaou smear with manual screening 13 U/L 15-37 Basophil percentageOrdered B y: Carisa Carty on 11-21-2022 Chloride [Moles/Vol] 109 mmol/L 98-107 [facility] Glucose [Mass/Vol] 86 mg/dL 74-106 [facility] Potassium [Moles/Vol] 4.0 mmol/L 3.5-5.1 [facility] Sodium [Moles/Vol] 143 mmol/L 136-145 [facility] Laboratory - Chemistry and C hemistry - challengeOrdered By: Carisa Carty on 11-21-2022 CO2 [Moles/Vol] 28.0 mmol/L 21.0-32.0 Urea nitrogen/Creatinine [Mass ratio] 23.6 mg/mg 10-20 No Panel InformationOrdered By: Carisa Carty on 11-21-2022 Estimated GFR (MDRD) Amer 79 mL/min >60 Comment on above: GFR Calc Estimated GFR (MDRD) Non-Af Amer 65 mL/min >60 Comment on above: Non- GFR Calc Serum or plasma calcium amanda urement (mass/volume)Ordered By: Carisa Carty on 11-21-2022 Calcium [Mass/Vol] 9.0 mg/dL 8.5-10.1 [facility] Serum or plasma creatinine m easurement (mass/volume)Ordered By: Carisa Carty on 11-21-2022 Creatinine [Mass/Vol] 0.89 mg/dL 0.55-1.02 [facility] Comment on above: The validity of the calculated GFR & GFRAA in patients over 70 years has not been determined. Clinical correlation is essential. Serum or plasma urea nitroge n measurement (mass/volume)Ordered By: Carisa Carty on 11-21-2022 Urea nitrogen [Mass/Vol] 21 mg/dL 7-18 Thin prep Papanicolaou smear with manual screeningOrdered By: Carisa Carty on 11-21-2022 Thin prep Papanicolaou smear with manual screening 6 5-15 Basophil percentageOrdered B y: Dr. Lofton on 10-21-2022 Chloride [Moles/Vol] 107 mmol/L 98-107 [facility] Glucose [Mass/Vol] 105 mg/dL 74-106 [facility] Comment on above: Fasting Glucose resu lt from 100 to 125 mg/dL suggests IMPAIRED HOMEOSTASIS per A.D.A. criteria. Potassium [Moles/Vol] 4.2 mmol/L 3.5-5.1 [facility] Sodium [Moles/Vol] 142 mmol/L 136-145 [facility] Laboratory - Chemistry and C hemistry - challengeOrdered By: Dr. Lofton on 10-21-2022 CO2 [Moles/Vol] 28.0 mmol/L 21.0-32.0 Urea nitrogen/Creatinine [Mass ratio] 18.9 mg/mg 10-20 No Panel InformationOrdered By: Dr. Lofton on 10-21-2022 Estimated GFR (MDRD) Amer 78 mL/min >60 Comment on above: GFR Calc Estimated GFR (MDRD) Non-Af Amer 65 mL/min >60 Comment on above: Non- GFR Calc Serum or plasma calcium amanda urement (mass/volume)Ordered By: Dr. Lofton on 10-21-2022 Calcium [Mass/Vol] 9.1 mg/dL 8.5-10.1 [facility] Serum or plasma creatinine m easurement (mass/volume)Ordered By: Dr. Lofton on 10-21-2022 Creatinine [Mass/Vol] 0.90 mg/dL 0.55-1.02 [facility] Comment on above: The validity of the calculated GFR & GFRAA in patients over 70 years has not been determined. Clinical correlation is essential. Serum or plasma urea nitroge n measurement (mass/volume)Ordered By: Dr. Lofton on 10-21-2022 Urea nitrogen [Mass/Vol] 17 mg/dL 7-18 Thin prep Papanicolaou smear with manual screeningOrdered By: Dr. Lofton on 10-21-2022 Thin prep Papanicolaou smear with manual screening 7 5-15 Absolute lymphocyte countOrd ered By: Carisa Carty on 08-31-2022 Lymphocytes Auto (Unsp spec) [#/Vol] 2.05 10*3/uL 0.83-4.51 Basophil percentageOrdered B y: Carisa Carty on 08-31-2022 Basophils/100 WBC (Bld) 0.7 % 0-1 [facility] Eosinophils/100 WBC (Bld) 2.9 % 0-5 Neutrophils (Bld) [#/Vol] 4.0 10*3/uL 2.0-7.7 Neutrophils/100 WBC (Bld) 57.9 % 47-70 WBC (Bld) [#/Vol] 6.9 10*3/uL 4.4-11.0 [facility] Blood erythrocytes count (nu mber/volume)Ordered By: Carisa Carty on 08-31-2022 RBC (Bld) [#/Vol] 4.56 10*6/uL 4.2-5.4 [facility] Blood hemoglobin measurement (mass/volume)Ordered By: Carisa Carty on 08-31-2022 Hemoglobin (Bld) [Mass/Vol] 13.4 g/dL 12.0-15.0 Blood lymphocytes/100 leukoc ytesOrdered By: Carisa Carty on 08-31-2022 Lymphocytes/100 WBC (Bld) 29.6 % 19-41 Blood monocytes/100 leukocyt esOrdered By: Carisa Carty on 08-31-2022 Monocytes/100 WBC (Bld) 8.5 % 0-10 [facility] Blood platelet mean volumeOr dered By: Carisa Carty on 08-31-2022 Platelet mean volume (Bld) [Entitic vol] 10.1 fL 6.2-12.0 Determination of erythrocyte mean corpuscular volume (MCV)Ordered By: Carisa Carty on 08-31-2022 MCV (RBC) [Entitic vol] 89.5 fL 81-99 [facility] Hematocrit Auto (Bld) [Volum e fraction]Ordered By: Carisa Carty on 08-31-2022 Hematocrit (Bld) [Volume fraction] 40.8 % 37-47 Laboratory - Hematology and Cell countsOrdered By: Carisa Carty on 08-31-2022 Erythrocyte distribution width (RBC) [Entitic vol] 43.0 fL 35.1-43.9 Erythrocyte distribution width (RBC) [Ratio] 13.1 % 11.6-14.6 Immature granulocytes/100 WBC (Bld) 0.400 % 0.0-0.9 Comment on above: IG% - Immature Granu locytes (promyelocytes, myelocytes and metamyelocytes) > 1% indicates that a LEFT SHIFT is Present. MCH (RBC) [Entitic mass] 29.4 pg 27.0-32.0 Nucleated RBC/100 WBC (Bld) [Ratio] 0 % 0-5 MCHC Auto (RBC) [Mass/Vol]Or dered By: Carisa Carty on 08-31-2022 MCHC (RBC) [Mass/Vol] 32.8 g/dL 32-36 [facility] No Panel InformationOrdered By: Carisa Carty on 08-31-2022 Thyroid Stimulating Hormone (TSH) 2.65 uIU/mL 0.358-3.74 Platelets bldOrdered By: Deandre Carty on 08-31-2022 Platelets (Bld) [#/Vol] 270 10*3/uL 150-450 Absolute lymphocyte counton 06-19-2022 Lymphocytes Auto (Unsp spec) [#/Vol] 2.86 10*3/uL 0.83-4.51 Work Phone: Basophil percentageon 2021 Basophils/100 WBC (Bld) 0.4 % 0-1 [facility] Work Phone: [phone] Chloride [Moles/Vol] 107 mmol/L 98-107 [facility] Work Phone: [phone] Eosinophils/100 WBC (Bld) 1.9 % 0-5 Work Phone: Glucose [Mass/Vol] 120 mg/dL 74-106 [facility] Work Phone: Comment on above: Fasting Glucose resu lt from 100 to 125 mg/dL suggests IMPAIRED HOMEOSTASIS per A.D.A. criteria. Neutrophils (Bld) [#/Vol] 5.2 10*3/uL 2.0-7.7 Work Phone: Neutrophils/100 WBC (Bld) 57.5 % 47-70 Work Phone: Potassium [Moles/Vol] 3.7 mmol/L 3.5-5.1 [facility] Work Phone: Sodium [Moles/Vol] 141 mmol/L 136-145 [facility] Work Phone: [phone] WBC (Bld) [#/Vol] 9.1 10*3/uL 4.4-11.0 [facility] Work Phone: Blood erythrocytes count (nu mber/volume)on 06-19-2022 RBC (Bld) [#/Vol] 4.32 10*6/uL 4.2-5.4 [facility] Work Phone: Blood hemoglobin measurement (mass/volume)on 06-19-2022 Hemoglobin (Bld) [Mass/Vol] 12.4 g/dL 12.0-15.0 Work Phone: Blood lymphocytes/100 leukoc yteson 06-19-2022 Lymphocytes/100 WBC (Bld) 31.5 % 19-41 Work Phone: [phone] Blood monocytes/100 leukocyt eson 06-19-2022 Monocytes/100 WBC (Bld) 8.1 % 0-10 [facility] Work Phone: Blood platelet mean volumeon 06-19-2022 Platelet mean volume (Bld) [Entitic vol] 10.5 fL 6.2-12.0 Work Phone: Determination of erythrocyte mean corpuscular volume (MCV)on 06-19-2022 MCV (RBC) [Entitic vol] 89.1 fL 81-99 [facility] Work Phone: Hematocrit Auto (Bld) [Volum e fraction]on 06-19-2022 Hematocrit (Bld) [Volume fraction] 38.5 % 37-47 Work Phone: Laboratory - Chemistry and C hemistry - challengeon 06-19-2022 CO2 [Moles/Vol] 28.0 mmol/L 21.0-32.0 Work Phone: Magnesium [Mass/Vol] 2.2 mg/dL 1.6-2.6 [facility] Work Phone: Urea nitrogen/Creatinine [Mass ratio] 22.4 mg/mg 10-20 Work Phone: Laboratory - Hematology and Cell countson 06-19-2022 Erythrocyte distribution width (RBC) [Entitic vol] 42.1 fL 35.1-43.9 Work Phone: Erythrocyte distribution width (RBC) [Ratio] 12.8 % 11.6-14.6 Work Phone: Immature granulocytes/100 WBC (Bld) 0.600 % 0.0-0.9 Work Phone: Comment on above: IG% - Immature Granu locytes (promyelocytes, myelocytes and metamyelocytes) > 1% indicates that a LEFT SHIFT is Present. MCH (RBC) [Entitic mass] 28.7 pg 27.0-32.0 Work Phone: Nucleated RBC/100 WBC (Bld) [Ratio] 0 % 0-5 Work Phone: MCHC Auto (RBC) [Mass/Vol]on 06-19-2022 MCHC (RBC) [Mass/Vol] 32.2 g/dL 32-36 [facility] Work Phone: No Panel Informationon 06-19 Estimated Creatinine Clearance Calc 45.00 ml/min Work Phone: Estimated GFR (MDRD) Amer 71 mL/min >60 Work Phone: Comment on above: GFR Calc Estimated GFR (MDRD) Non-Af Amer 58 mL/min >60 Work Phone: Comment on above: Non- GFR Calc Troponin I High Sensitivity 9 pg/mL 3.0-54.0 Work Phone: Comment on above: Please Note: New Pratima t Units and Gender Specific Reference Ranges. For more information see Policy Stat Procedure [place] High Sensitivity Troponin (TNIH) and attachments. Platelets bldon 06-19-2022 Platelets (Bld) [#/Vol] 274 10*3/uL 150-450 Work Phone: Serum or plasma calcium amanda urement (mass/volume)on 06-19-2022 Calcium [Mass/Vol] 9.4 mg/dL 8.5-10.1 [facility] Work Phone: Serum or plasma creatinine m easurement (mass/volume)on 06-19-2022 Creatinine [Mass/Vol] 0.98 mg/dL 0.55-1.02 [facility] Work Phone: Comment on above: The validity of the calculated GFR & GFRAA in patients over 70 years has not been determined. Clinical correlation is essential. Serum or plasma urea nitroge n measurement (mass/volume)on 06-19-2022 Urea nitrogen [Mass/Vol] 22 mg/dL 7-18 Work Phone: Thin prep Papanicolaou smear with manual screeningon 06-19-2022 Thin prep Papanicolaou smear with manual screening 6 5-15 Work Phone: Absolute lymphocyte counton 06-17-2022 Lymphocytes Auto (Unsp spec) [#/Vol] 2.28 10*3/uL 0.83-4.51 Work Phone: Basophil percentageon 2021 Basophils/100 WBC (Bld) 0.4 % 0-1 [facility] Work Phone: Chloride [Moles/Vol] 108 mmol/L 98-107 [facility] Work Phone: Eosinophils/100 WBC (Bld) 2.4 % 0-5 Work Phone: Glucose [Mass/Vol] 90 mg/dL 74-106 [facility] Work Phone: Neutrophils (Bld) [#/Vol] 4.5 10*3/uL 2.0-7.7 Work Phone: Neutrophils/100 WBC (Bld) 58.3 % 47-70 Work Phone: Potassium [Moles/Vol] 4.1 mmol/L 3.5-5.1 [facility] Work Phone: Sodium [Moles/Vol] 141 mmol/L 136-145 [facility] Work Phone: WBC (Bld) [#/Vol] 7.6 10*3/uL 4.4-11.0 [facility] Work Phone: Blood erythrocytes count (nu mber/volume)on 06-17-2022 RBC (Bld) [#/Vol] 4.46 10*6/uL 4.2-5.4 [facility] Work Phone: Blood hemoglobin measurement (mass/volume)on 06-17-2022 Hemoglobin (Bld) [Mass/Vol] 12.9 g/dL 12.0-15.0 Work Phone: Blood lymphocytes/100 leukoc yteson 06-17-2022 Lymphocytes/100 WBC (Bld) 29.8 % 19-41 Work Phone: Blood monocytes/100 leukocyt eson 06-17-2022 Monocytes/100 WBC (Bld) 8.6 % 0-10 [facility] Work Phone: Blood platelet mean volumeon 06-17-2022 Platelet mean volume (Bld) [Entitic vol] 10.8 fL 6.2-12.0 Work Phone: Determination of erythrocyte mean corpuscular volume (MCV)on 06-17-2022 MCV (RBC) [Entitic vol] 89.2 fL 81-99 [facility] Work Phone: Hematocrit Auto (Bld) [Volum e fraction]on 06-17-2022 Hematocrit (Bld) [Volume fraction] 39.8 % 37-47 Work Phone: Laboratory - Chemistry and C hemistry - challengeon 06-17-2022 CO2 [Moles/Vol] 28.0 mmol/L 21.0-32.0 Work Phone: Natriuretic peptide B (Bld) [Mass/Vol] 183.1 pg/mL 0-100 Work Phone: Urea nitrogen/Creatinine [Mass ratio] 18.6 mg/mg 10-20 Work Phone: Laboratory - Hematology and Cell countson 06-17-2022 Erythrocyte distribution width (RBC) [Entitic vol] 41.4 fL 35.1-43.9 Work Phone: Erythrocyte distribution width (RBC) [Ratio] 12.6 % 11.6-14.6 Work Phone: Immature granulocytes/100 WBC (Bld) 0.500 % 0.0-0.9 Work Phone: Comment on above: IG% - Immature Granu locytes (promyelocytes, myelocytes and metamyelocytes) > 1% indicates that a LEFT SHIFT is Present. MCH (RBC) [Entitic mass] 28.9 pg 27.0-32.0 Work Phone: Nucleated RBC/100 WBC (Bld) [Ratio] 0 % 0-5 Work Phone: MCHC Auto (RBC) [Mass/Vol]on 06-17-2022 MCHC (RBC) [Mass/Vol] 32.4 g/dL 32-36 [facility] Work Phone: No Panel Informationon 06-17 Estimated GFR (MDRD) Amer 89 mL/min >60 Work Phone: Comment on above: GFR Calc Estimated GFR (MDRD) Non-Af Amer 73 mL/min >60 Work Phone: Comment on above: Non- GFR Calc Platelets bldon 06-17-2022 Platelets (Bld) [#/Vol] 291 10*3/uL 150-450 Work Phone: Serum or plasma calcium amanda urement (mass/volume)on 06-17-2022 Calcium [Mass/Vol] 9.4 mg/dL 8.5-10.1 [facility] Work Phone: Serum or plasma creatinine m easurement (mass/volume)on 06-17-2022 Creatinine [Mass/Vol] 0.81 mg/dL 0.55-1.02 [facility] Work Phone: Comment on above: The validity of the calculated GFR & GFRAA in patients over 70 years has not been determined. Clinical correlation is essential. Serum or plasma urea nitroge n measurement (mass/volume)on 06-17-2022 Urea nitrogen [Mass/Vol] 15 mg/dL 7-18 Work Phone: Thin prep Papanicolaou smear with manual screeningon 06-17-2022 Thin prep Papanicolaou smear with manual screening 5 5-15 Work Phone: Basophil percentageon 2021 Basophil percentage 25-50 SEEN /hpf 0-5 Work Phone: Bilirubin Test strip Ql (U)o n 06-15-2022 Bilirubin Ql (U) Negative Negative Work Phone: Ketones Test strip Ql (U)on 06-15-2022 Ketones Ql (U) Negative Negative Work Phone: Mucus LM Ql (Urine sed)on Mucus Ql (Urine sed) 0 SEEN /hpf [facility] Work Phone: Nitrite Test strip Ql (U)on 06-15-2022 Nitrite Ql (U) Negative Negative Work Phone: Protein Test strip Ql (U)on 06-15-2022 Protein Ql (U) 100 mg/dl Negative Work Phone: Squamous epithelial cells de tection in urine sediment by light microscopyon 06-15-2022 Epithelial cells.squamous LM Ql (Urine sed) 0-5 SEEN /hpf 5-10 Work Phone: Urine blood detectionon 05-18 RBC Ql (U) 50 /ul Negative Work Phone: RBC Ql (U) 0-5 SEEN /hpf 0-5 Work Phone: Urine clarityon 06-15-2022 Clarity (U) Cloudy Clear Work Phone: Urine color determinationon 06-15-2022 Color (U) Yellow Yellow Work Phone: Urine glucose detectionon Glucose Ql (U) Normal mg/dl Normal Work Phone: Urine leukocyte esterase det ection by dipstickon 06-15-2022 Leukocyte esterase Test strip Ql (U) 500 /ul Negative Work Phone: Urine pHon 06-15-2022 pH (U) 6.0 [pH] 5.0 - 8.0 Work Phone: Urine sediment bacteria coun t by microscopy (number/high power field)on 06-15-2022 Bacteria LM.HPF (Urine sed) [#/Area] 1 /[HPF] None Seen Work Phone: Urine specific gravity measu rementon 06-15-2022 Specific gravity (U) [Rel density] 1.015 1.002-1.030 Work Phone: Urobilinogen Auto test strip Ql (U)on 06-15-2022 Urobilinogen Ql (U) Normal mg/dl Normal [facility] Work Phone: Basophil percentageon 2021 Basophil percentage < 0.9 mg/dL 0.55-1.02 [facility] Work Phone: No Panel Informationon 06-09 Bedside Estimated GFR (eGFR) > 60.0000 mL/min >60 Work Phone: Basophil percentageon 2021 Basophil percentage >100 SEEN /hpf 0-5 [facility] Work Phone: Bilirubin Test strip Ql (U)o n 05-27-2022 Bilirubin Ql (U) Negative Negative Work Phone: Ketones Test strip Ql (U)on 05-27-2022 Ketones Ql (U) Negative Negative Work Phone: Mucus LM Ql (Urine sed)on Mucus Ql (Urine sed) 0 SEEN /hpf [facility] Work Phone: Nitrite Test strip Ql (U)on 05-27-2022 Nitrite Ql (U) Positive Negative Work Phone: Protein Test strip Ql (U)on 05-27-2022 Protein Ql (U) 30 mg/dl Negative Work Phone: Squamous epithelial cells de tection in urine sediment by light microscopyon 05-27-2022 Epithelial cells.squamous LM Ql (Urine sed) 0-5 SEEN /hpf 5-10 Work Phone: Urine blood detectionon 05-16 RBC Ql (U) 50 /ul Negative Work Phone: RBC Ql (U) 0 SEEN /hpf 0-5 Work Phone: Urine clarityon 05-27-2022 Clarity (U) Cloudy Clear Work Phone: Urine color determinationon 05-27-2022 Color (U) Yellow Yellow Work Phone: Urine glucose detectionon Glucose Ql (U) Normal mg/dl Normal Work Phone: Urine leukocyte esterase det ection by dipstickon 05-27-2022 Leukocyte esterase Test strip Ql (U) 500 /ul Negative Work Phone: Urine pHon 05-27-2022 pH (U) 6.0 [pH] 5.0 - 8.0 Work Phone: Urine sediment bacteria coun t by microscopy (number/high power field)on 05-27-2022 Bacteria LM.HPF (Urine sed) [#/Area] 1 /[HPF] None Seen Work Phone: Urine specific gravity measu rementon 05-27-2022 Specific gravity (U) [Rel density] 1.020 1.002-1.030 Work Phone: Urobilinogen Auto test strip Ql (U)on 05-27-2022 Urobilinogen Ql (U) Normal mg/dl Normal [facility] Work Phone: Basophil percentageon 2021 Basophil percentage 50-100 SEEN /hpf 0-5 Work Phone: Bilirubin Test strip Ql (U)o n 05-24-2022 Bilirubin Ql (U) Negative Negative Work Phone: Ketones Test strip Ql (U)on 05-24-2022 Ketones Ql (U) Negative Negative Work Phone: Mucus LM Ql (Urine sed)on Mucus Ql (Urine sed) 0 SEEN /hpf [facility] Work Phone: Nitrite Test strip Ql (U)on 05-24-2022 Nitrite Ql (U) Positive Negative Work Phone: Protein Test strip Ql (U)on 05-24-2022 Protein Ql (U) Negative Negative Work Phone: Squamous epithelial cells de tection in urine sediment by light microscopyon 05-24-2022 Epithelial cells.squamous LM Ql (Urine sed) 0-5 SEEN /hpf 5-10 Work Phone: Urine blood detectionon 08-0 RBC Ql (U) 10 /ul Negative Work Phone: RBC Ql (U) 0 SEEN /hpf 0-5 Work Phone: Urine clarityon 05-24-2022 Clarity (U) Cloudy Clear Work Phone: Urine color determinationon 05-24-2022 Color (U) Straw Yellow Work Phone: Urine glucose detectionon Glucose Ql (U) Normal mg/dl Normal Work Phone: Urine leukocyte esterase det ection by dipstickon 05-24-2022 Leukocyte esterase Test strip Ql (U) 500 /ul Negative Work Phone: [phone] Urine pHon 05-24-2022 pH (U) 6.0 [pH] 5.0 - 8.0 Work Phone: Urine sediment bacteria coun t by microscopy (number/high power field)on 05-24-2022 Bacteria LM.HPF (Urine sed) [#/Area] 1 /[HPF] None Seen Work Phone: Urine specific gravity measu rementon 05-24-2022 Specific gravity (U) [Rel density] 1.010 1.002-1.030 Work Phone: Urobilinogen Auto test strip Ql (U)on 05-24-2022 Urobilinogen Ql (U) Normal mg/dl Normal [facility] Work Phone: [phone] Basophil percentageon 2021 Chloride [Moles/Vol] 106 mmol/L 98-107 [facility] Work Phone: Glucose [Mass/Vol] 100 mg/dL 74-106 [facility] Work Phone: Comment on above: Fasting Glucose resu lt from 100 to 125 mg/dL suggests IMPAIRED HOMEOSTASIS per A.D.A. criteria. Potassium [Moles/Vol] 4.0 mmol/L 3.5-5.1 [facility] Work Phone: Sodium [Moles/Vol] 141 mmol/L 136-145 [facility] Work Phone: Laboratory - Chemistry and C hemistry - challengeon 03-30-2022 CO2 [Moles/Vol] 28.0 mmol/L 21.0-32.0 Work Phone: Urea nitrogen/Creatinine [Mass ratio] 14.9 mg/mg 10-20 Work Phone: No Panel Informationon 03-30 Estimated GFR (MDRD) Amer 88 mL/min >60 Work Phone: Comment on above: GFR Calc Estimated GFR (MDRD) Non-Af Amer 73 mL/min >60 Work Phone: Comment on above: Non- GFR Calc Serum or plasma calcium amanda urement (mass/volume)on 03-30-2022 Calcium [Mass/Vol] 9.1 mg/dL 8.5-10.1 [facility] Work Phone: Serum or plasma creatinine m easurement (mass/volume)on 03-30-2022 Creatinine [Mass/Vol] 0.81 mg/dL 0.55-1.02 [facility] Work Phone: Comment on above: The validity of the calculated GFR & GFRAA in patients over 70 years has not been determined. Clinical correlation is essential. Serum or plasma urea nitroge n measurement (mass/volume)on 03-30-2022 Urea nitrogen [Mass/Vol] 12 mg/dL 7-18 Work Phone: Thin prep Papanicolaou smear with manual screeningon 03-30-2022 Thin prep Papanicolaou smear with manual screening 7 - Work Phone: Absolute lymphocyte counton 12-28-2021 Lymphocytes Auto (Unsp spec) [#/Vol] 1.10 10*3/uL 0.83-4.51 Work Phone: Basophil percentageon 2021 Basophils/100 WBC (Bld) 0.3 % 0-1 [facility] Work Phone: Bilirubin [Mass/Vol] 0.30 mg/dL 0.20-1.00 [facility] Work Phone: Comment on above: For patients on eltr ombopag therapy, use of Dimension [place] TBIL is not recommended. Chloride [Moles/Vol] 108 mmol/L 98-107 [facility] Work Phone: Cholesterol [Mass/Vol] 174 mg/dL <200 [facility] Work Phone: Comment on above: <200 mg/dL Desirable 200-240 mg/dL Borderline >240 mg/dL High Risk Eosinophils/100 WBC (Bld) 0.3 % 0-5 Work Phone: Glucose [Mass/Vol] 121 mg/dL 74-106 [facility] Work Phone: Comment on above: Fasting Glucose resu lt from 100 to 125 mg/dL suggests IMPAIRED HOMEOSTASIS per A.D.A. criteria. Neutrophils (Bld) [#/Vol] 5.9 10*3/uL 2.0-7.7 Work Phone: Neutrophils/100 WBC (Bld) 80.8 % 47-70 Work Phone: Potassium [Moles/Vol] 4.5 mmol/L 3.5-5.1 [facility] Work Phone: Protein [Mass/Vol] 7.8 g/dL 6.4-8.2 [facility] Work Phone: [phone] Sodium [Moles/Vol] 140 mmol/L 136-145 [facility] Work Phone: Triglyceride [Mass/Vol] 77 mg/dL <199 [facility] Work Phone: Comment on above: The drugs N-Acetylcy steine and Metamizole may falsely depress this assay.Serum Triglycerides Reference Interval Normal <150 mg/dL Borderline high 150 - 199 mg/dL High 200 - 499 mg/dL Very High > or = 500 mg/dL WBC (Bld) [#/Vol] 7.2 10*3/uL 4.4-11.0 [facility] Work Phone: Blood erythrocytes count (nu mber/volume)on 12-28-2021 RBC (Bld) [#/Vol] 4.54 10*6/uL 4.2-5.4 [facility] Work [facility]: Blood hemoglobin measurement (mass/volume)on 12-28-2021 Hemoglobin (Bld) [Mass/Vol] 13.2 g/dL 12.0-15.0 Work Phone: Blood lymphocytes/100 leukoc yteson 12-28-2021 Lymphocytes/100 WBC (Bld) 15.2 % 19-41 Work Phone: Blood monocytes/100 leukocyt eson 12-28-2021 Monocytes/100 WBC (Bld) 2.8 % 0-10 [facility] Work Phone: Blood platelet mean volumeon 12-28-2021 Platelet mean volume (Bld) [Entitic vol] 10.9 fL 6.2-12.0 Work Phone: Determination of erythrocyte mean corpuscular volume (MCV)on 12-28-2021 MCV (RBC) [Entitic vol] 87.9 fL 81-99 [facility] Work Phone: Hematocrit Auto (Bld) [Volum e fraction]on 12-28-2021 Hematocrit (Bld) [Volume fraction] 39.9 % 37-47 Work Phone: Laboratory - Chemistry and C hemistry - challengeon 12-28-2021 ALP [Catalytic activity/Vol] 109 U/L 45-117 Work Phone: ALT [Catalytic activity/Vol] 27 U/L 13-56 Work Phone: CO2 [Moles/Vol] 29.0 mmol/L 21.0-32.0 Work Phone: Globulin (S) [Mass/Vol] 3.8 g/dL 2.2-4.2 [facility] Work Phone: Urea nitrogen/Creatinine [Mass ratio] 16.0 mg/mg 10-20 Work Phone: Laboratory - Hematology and Cell countson 12-28-2021 Erythrocyte distribution width (RBC) [Entitic vol] 42.1 fL 35.1-43.9 Work Phone: Erythrocyte distribution width (RBC) [Ratio] 13.0 % 11.6-14.6 Work Phone: Immature granulocytes/100 WBC (Bld) 0.600 % 0.0-0.9 Work Phone: Comment on above: IG% - Immature Granu locytes (promyelocytes, myelocytes and metamyelocytes) > 1% indicates that a LEFT SHIFT is Present. MCH (RBC) [Entitic mass] 29.1 pg 27.0-32.0 Work Phone: Nucleated RBC/100 WBC (Bld) [Ratio] 0 % 0-5 Work Phone: MCHC Auto (RBC) [Mass/Vol]on 12-28-2021 MCHC (RBC) [Mass/Vol] 33.1 g/dL 32-36 [facility] Work Phone: No Panel Informationon 12-28 Estimated GFR (MDRD) Amer 65 mL/min >60 Work Phone: Comment on above: GFR Calc Estimated GFR (MDRD) Non-Af Amer 53 mL/min >60 Work Phone: Comment on above: Non- GFR Calc Vitamin D 25-Hydroxy 12.6 ng/mL [facility] Work Phone: Comment on above: Vitamin D 25(OH) Sta tus Range Deficiency <20 ng/mL (50nmol/L) Insufficiency 20 - 30 ng/mL (50 - 75 nmol/L) Sufficiency 30 - 100 ng/mL (75 - 250 nmol/L) Toxicity >100 ng/mL (>250 nmol/L) Platelets bldon 03-15-2022 Platelets (Bld) [#/Vol] 276 10*3/uL 150-450 Work Phone: Serum or plasma albumin amanda urement (mass/volume)on 12-28-2021 Albumin [Mass/Vol] 4.0 g/dL 3.2-5.0 [facility] Work Phone: Serum or plasma albumin/glob ulin mass ratioon 12-28-2021 Albumin/Globulin [Mass ratio] 1.1 {ratio} 0.9-2.4 Work Phone: Serum or plasma calcium amanda urement (mass/volume)on 12-28-2021 Calcium [Mass/Vol] 8.9 mg/dL 8.5-10.1 [facility] Work Phone: Serum or plasma cholesterol in HDL measurement (mass/volume)on 12-28-2021 Cholesterol in HDL [Mass/Vol] 78 mg/dL >40 Work Phone: Comment on above: The drugs N-Acetylcy steine and Metamizole may falsely depress this assay. Reference Range HDL <40 mg/dL Low HDL Cholesterol HDL >or= 60 mg/dL High HDL Cholesterol Serum or plasma cholesterol in VLDL measurement (mass/volume)on 12-28-2021 Cholesterol in VLDL [Mass/Vol] 15 mg/dL 5-40 Work Phone: Serum or plasma creatinine m easurement (mass/volume)on 12-28-2021 Creatinine [Mass/Vol] 1.06 mg/dL 0.55-1.02 [facility] Work Phone: Comment on above: The validity of the calculated GFR & GFRAA in patients over 70 years has not been determined. Clinical correlation is essential. Serum or plasma low density lipoprotein (LDL) cholesterol measurement (mass/volume)on 12-28-2021 Cholesterol in LDL [Mass/Vol] 81 mg/dL 0-130 Work Phone: Serum or plasma urea nitroge n measurement (mass/volume)on 12-28-2021 Urea nitrogen [Mass/Vol] 17 mg/dL 7-18 Work Phone: Thin prep Papanicolaou smear with manual screeningon 12-28-2021 Thin prep Papanicolaou smear with manual screening 14 U/L 15 Work Phone: Thin prep Papanicolaou smear with manual screening 3 - Work Phone: Basic Metabolic Panelon 07-0 Anion gap [Moles/Vol] 12 mmol/L Normal 9-18 [facility] Comment on above: Performed By: #### B MP #### [facility] [address] [place], [place] [address] Calcium [Mass/Vol] 9.1 mg/dL Normal 8.5-10.2 [facility] [place] [facility] Comment on above: Performed By: #### B MP #### [facility] [address] [place], [place] [address] Chloride [Moles/Vol] 103 mmol/L Normal 97-105 [facility] Comment on above: Performed By: #### B MP #### [facility] [address] [place], [place] [address] CO2 Blood 24 mmol/L Normal 22-30 [facility] [place] [facility] Comment on above: Performed By: #### B MP #### [facility] [address] [place], [place] [address] Creatinine [Mass/Vol] 0.96 mg/dL Normal 0.58-0.96 [facility] Comment on above: Performed By: #### B MP #### [facility] [address] [place], [place] [address] Glucose [Mass/Vol] 90 mg/dL Normal 74-99 [facility] [place] [facility] Comment on above: Result Comment: The [place] [employer] (ADA) provides guidance for cutoff [...] Standards of Medical Care in Diabetes 2016; [place] [employer]. Diabetes Care. 2016;39(Suppl 1). Performed By: #### B MP #### [facility] [address] [place] [address] Potassium [Moles/Vol] 4.2 mmol/L Normal 3.7-5.1 [facility] Comment on above: Performed By: #### B MP #### [facility] [address] [place] [address] Sodium [Moles/Vol] 139 mmol/L Normal 136-144 [facility] [place] [facility] Comment on above: Performed By: #### B MP #### [place] [address] Urea nitrogen [Mass/Vol] 17 mg/dL Normal 7-21 [facility] [place] [facility] Comment on above: Performed By: #### B MP #### [facility] [address] [place] [address] Hemogramon 04-20-2020 Erythrocyte distribution width (RBC) [Ratio] 13.3 % Normal 11.7-14.4 [facility] Comment on above: Performed By: #### C BC1 #### [place] [address] Hematocrit (Bld) [Volume fraction] 38.4 % Normal 34.1-44.9 [facility] [place] [facility] Comment on above: Performed By: #### C BC1 #### [place] [address] Hemoglobin (Bld) [Mass/Vol] 12.2 g/dL Normal 11.2-15.7 [facility] [place] [facility] Comment on above: Performed By: #### C BC1 #### [facility] [address] [place] [id number] MCH (RBC) [Entitic mass] 28.7 pg Normal 25.6-32.2 [facility] [place] [facility] Comment on above: Performed By: #### C BC1 #### [address] [place], [place] [address] MCHC (RBC) [Mass/Vol] 31.8 % Normal 31.6-34.8 [facility] Comment on above: Performed By: #### C BC1 #### [facility] [address] [place] [address] MCV (RBC) [Entitic vol] 90.4 fL Normal 79.4-94.8 [facility] Comment on above: Performed By: #### C BC1 #### [facility] [address] [place] [address] Platelet mean volume (Bld) [Entitic vol] 10.8 fL Normal 9.4-12.3 [facility] Comment on above: Performed By: #### C BC1 #### [facility] [address] [place] [address] Platelets (Bld) [#/Vol] 304 thou/cmm Normal 182-369 [facility] [place] [facility] Comment on above: Performed By: #### C BC1 #### [facility] [address] [place] [address] RBC (Bld) [#/Vol] 4.25 mil/cmm Normal 3.93-5.22 [facility] [place] [facility] Comment on above: Performed By: #### C BC1 #### [facility] [address] [place] [address] RDW SD 44.2 fl Normal 36.4-46.3 [facility] [place] [facility] Comment on above: Performed By: #### C BC1 #### [facility] [address] [place] [address] WBC (Bld) [#/Vol] 7.74 thou/cmm Normal 3.98-10.04 [facility] Comment on above: Performed By: #### C BC1 #### [facility] [address] [place] [phone] MDRD GFRon 04-20-2020 GFR/1.73 sq M predicted among non-blacks MDRD (S/P/Bld) [Vol rate/Area] 56.62 mL/min/{1.73_m2} Normal >60mL/min/1. 73m2 [facility] [place] [facility] Comment on above: Result Comment: If t he patient is , multiply the result by 1.210. Performed By: #### G FR #### [facility] [address] [place] [id number] US PELVIS LTDon 04-20-2020 US PELVIS LTD Final Report DATE OF EXAM: Apr 20 2020 4:18PM GRU 1043 - US PELVIS LTD / PROCEDURE [...] at the site of reported patient pain. Supervisor Brine[facility] Transcribe Date/Time: Apr 21 2020 8:05A Dictated by : LIAM MURRAY MD This examination was interpreted and the report reviewed and electronically signed by: LIAM MURRAY MD on Apr 21 2020 8:06AM EST Normal [facility] [place] [facility] Culture, urine Bacteria identified Cx Nom (U) Klebsiella pneumoniae sp pneum Work Phone: Bacteria identified Cx Nom (U) Pseudomonas aeroginosa Work Phone: Vital Signs Date Time Vital Sign Value Performing Clinician Facility 06-30-2025 11:03-0400 Body height 162.[address] Yuko Lofton MD Work Phone: 06-30-2025 11:03-0400 Body mass index (BMI) [Ratio] 28.5 kg/m2 Dr. Yuko Lofton MD Work Phone: 06-30-2025 11:03-040 Body temperature 97.2 [degF] Dr. Yuko Lofton MD Work Phone: 06-30-2025 11:03-0400 Body weight 75.[address] Yuko Lofton MD Work Phone: 06-30-2025 11:03-0400 Diastolic blood pressure 72 mm[Hg] Dr. Yuko Lofton MD Work Phone: 06-30-2025 11:03-0400 Heart rate 75 /min Dr. Yuko Lofton MD Work Phone: 06-30-2025 11:03-0400 Respiratory rate 16 /min Dr. Yuko Lofton MD Work Phone: 06-30-2025 11:03-0400 SaO2% (BldA) [Mass fraction] 96 % Dr. Yuko Lofton MD Work Phone: 06-30-2025 11:03-0400 Systolic blood pressure 122 mm[Hg] Dr. Yuko Lofton MD Work Phone: 05-12-2025 13:33-0400 Body mass index (BMI) [Ratio] 27.28 kg/m2 Natacha Horowitz [employer] Work Phone: [facility] 05-12-2025 13:33-0400 Body weight 76.66 kg Natacha Horowitz [employer] Work Phone: [facility] 05-12-2025 13:33-0400 Diastolic blood pressure 74 mm[Hg] Natacha Horowitz [employer] Work Phone: [facility] 05-12-2025 13:33-0400 Heart rate 76 /min Natacha Horowitz [employer] Work Phone: [facility] 05-12-2025 13:33-0400 Respiratory rate 16 /min Natacha Horowitz [employer] Work Phone: [facility] 05-12-2025 13:33-0400 Systolic blood pressure 150 mm[Hg] Natacha Horowitz [employer] Work Phone: [facility] 04-30-2025 16:56-0400 Body height 162.[address] Yuko Lofton MD Work Phone: 04-30-2025 16:56-0400 Body mass index (BMI) [Ratio] 29.2 kg/m2 Dr. Yuko Lofton MD Work Phone: 04-30-2025 16:56-0400 Body temperature 98.6 [degF] Dr. Yuko Lofton MD Work Phone: 04-30-2025 16:56-0400 Body weight 77.[address] Yuko Lofton MD Work Phone: 04-30-2025 16:56-0400 Diastolic blood pressure 74 mm[Hg] Dr. Yuko Lofton MD Work Phone: 04-30-2025 16:56-0400 Heart rate 66 /min Dr. Yuko Lofton MD Work Phone: 04-30-2025 16:56-0400 Respiratory rate 16 /min Dr. Yuko Lofton MD Work Phone: 04-30-2025 16:56-0400 SaO2% (BldA) [Mass fraction] 98 % Dr. Yuko Lofton MD Work Phone: 04-30-2025 16:56-0400 Systolic blood pressure 128 mm[Hg] Dr. Yuko Lofton MD Work Phone: 03-24-2025 10:36-0400 Body height 162.[address] Yuko Lofton MD Work Phone: 03-24-2025 10:36-0400 Body mass index (BMI) [Ratio] 29.2 kg/m2 Dr. Yuko Lofton MD Work Phone: 03-24-2025 10:36-0400 Body temperature 97.7 [degF] Dr. Yuko Lofton MD Work Phone: 03-24-2025 10:36-0400 Body weight 77.[address] Yuko Lofton MD Work Phone: 03-24-2025 10:36-0400 Diastolic blood pressure 82 mm[Hg] Dr. Yuko Lofton MD Work Phone: 03-24-2025 10:36-0400 Heart rate 66 /min Dr. Yuko Lofton MD Work Phone: 03-24-2025 10:36-0400 Respiratory rate 14 /min Dr. Yuko Lofton MD Work Phone: 03-24-2025 10:36-0400 SaO2% (BldA) [Mass fraction] 98 % Dr. Yuko Lofton MD Work Phone: 03-24-2025 10:36-0400 Systolic blood pressure 126 mm[Hg] Dr. Yuko Lofton MD Work Phone: 03-04-2025 07:19-0400 Body height 162.[address] Yuko Lofton MD Work Phone: 03-04-2025 07:19-0400 Body mass index (BMI) [Ratio] 29 kg/m2 Dr. Yuko Lofton MD Work Phone: 03-04-2025 07:19-0400 Body weight 76.[address] Yuko Lofton MD Work Phone: 03-04-2025 07:19-0400 Diastolic blood pressure 72 mm[Hg] Dr. Yuko Lofton MD Work Phone: 03-04-2025 07:19-0400 Heart rate 71 /min Dr. Yuko Lofton MD Work Phone: 03-04-2025 07:19-0400 Respiratory rate 18 /min Dr. Yuko Lofton MD Work Phone: 03-04-2025 07:19-0400 SaO2% (BldA) [Mass fraction] 96 % Dr. Yuko Lofton MD Work Phone: 03-04-2025 07:19-0400 Systolic blood pressure 120 mm[Hg] Dr. Yuko Lofton MD Work Phone: 01-03-2025 14:16-0400 Body height 162.[address] Yuko Lofton MD Work Phone: 01-03-2025 14:16-0400 Body mass index (BMI) [Ratio] 29.5 kg/m2 Dr. Yuko Lofton MD Work Phone: 01-03-2025 14:16-0400 Body temperature 97.8 [degF] Dr. Yuko Lofton MD Work Phone: 01-03-2025 14:16-0400 Body weight 78.[address] Yuko Lofton MD Work Phone: 01-03-2025 14:16-0400 Diastolic blood pressure 64 mm[Hg] Dr. Yuko Lofton MD Work Phone: 01-03-2025 14:16-0400 Heart rate 78 /min Dr. Yuko Lofton MD Work Phone: 01-03-2025 14:16-0400 Respiratory rate 18 /min Dr. Yuko Lofton MD Work Phone: 01-03-2025 14:16-0400 SaO2% (BldA) [Mass fraction] 95 % Dr. Yuko Lofton MD Work Phone: 01-03-2025 14:16-0400 Systolic blood pressure 122 mm[Hg] Dr. Yuko Lofton MD Work Phone: 12-13-2024 12:52-0500 Body mass index (BMI) [Ratio] 28.8 kg/m2 Dr. Yuko Lofton MD Work Phone: 12-13-2024 12:52-0500 Body temperature 97 [degF] Dr. Yuko Lofton MD Work Phone: 12-13-2024 12:52-0500 Body weight 76.[address] Yuko Lofton MD Work Phone: 12-13-2024 12:52-0500 Diastolic blood pressure 68 mm[Hg] Dr. Yuko Lofton MD Work Phone: 12-13-2024 12:52-0500 Heart rate 66 /min Dr. Yuko Lofton MD Work Phone: 12-13-2024 12:52-0500 Respiratory rate 12 /min Dr. Yuko Lofton MD Work Phone: 12-13-2024 12:52-0500 SaO2% (BldA) [Mass fraction] 95 % Dr. Yuko Lofton MD Work Phone: 12-13-2024 12:52-0500 Systolic blood pressure 122 mm[Hg] Dr. Yuko Lofton MD Work Phone: 12-02-2024 18:54-0500 Body temperature 98.2 [degF] Dr. Yuko Lofton MD Work Phone: 12-02-2024 18:54-0500 Diastolic blood pressure 68 mm[Hg] Dr. Yuko Lofton MD Work Phone: 12-02-2024 18:54-0500 Heart rate 71 /min Dr. Yuko Lofton MD Work Phone: 12-02-2024 18:54-0500 Respiratory rate 18 /min Dr. Yuko Lofton MD Work Phone: 12-02-2024 18:54-0500 SaO2% (BldA) [Mass fraction] 94 % Dr. Yuko Lofton MD Work Phone: 12-02-2024 18:54-0500 Systolic blood pressure 123 mm[Hg] Dr. Yuko Lofton MD Work Phone: 12-02-2024 12:42-0500 Body mass index (BMI) [Ratio] 28.8 kg/m2 Dr. Yuko Lofton MD Work Phone: 12-02-2024 12:42-0500 Body weight 76.[address] Yuko Lofton MD Work Phone: 11-27-2024 13:42-0500 Body mass index (BMI) [Ratio] 27.6 kg/m2 Dr. Yuko Lofton MD Work Phone: 11-27-2024 13:42-0500 Body temperature 98 [degF] Dr. Yuko Lofton MD Work Phone: 11-27-2024 13:42-0500 Body weight 77.[address] Yuko Lofton MD Work Phone: 11-27-2024 13:42-0500 Diastolic blood pressure 80 mm[Hg] Dr. Yuko Lofton MD Work Phone: 11-27-2024 13:42-0500 Heart rate 66 /min Dr. Yuko Lofton MD Work Phone: 11-27-2024 13:42-0500 Respiratory rate 16 /min Dr. Yuko Lofton MD Work Phone: 11-27-2024 13:42-0500 SaO2% (BldA) [Mass fraction] 96 % Dr. Yuko Lofton MD Work Phone: 11-27-2024 13:42-0500 Systolic blood pressure 144 mm[Hg] Dr. Yuko Lofton MD Work Phone: 11-14-2024 13:20-0500 Body mass index (BMI) [Ratio] 27.6 kg/m2 Ivory Carlos PA-C Work Phone: [facility] 11-14-2024 13:20-0500 Body weight 77.56 kg Ivory Carlos PA-C Work Phone: [facility] 11-14-2024 13:20-0500 Diastolic blood pressure 80 mm[Hg] Ivory Carlos PA-C Work Phone: [facility] 11-14-2024 13:20-0500 Heart rate 80 /min Ivory Carlos PA-C Work Phone: [facility] 11-14-2024 13:20-0500 Respiratory rate 16 /min Ivory Carlos PA-C Work Phone: [facility] 11-14-2024 13:20-0500 Systolic blood pressure 151 mm[Hg] Ivory Carlos PA-C Work Phone: [facility] 10-25-2024 13:48-0500 Diastolic blood pressure 82 mm[Hg] [address] 10-25-2024 13:48-0500 Heart rate 68 /min [address] 10-25-2024 13:48-0500 Respiratory rate 16 /min [address] 10-25-2024 13:48-0500 SaO2% (BldA) [Mass fraction] 98 % [address] 10-25-2024 13:48-0500 Systolic blood pressure 115 mm[Hg] [address] 10-25-2024 13:32-0500 Body temperature 98.01 [degF] [address] 10-25-2024 12:37-0500 Body height 167.[address] 10-25-2024 12:37-0500 Body mass index (BMI) [Ratio] 27.12 kg/m2 [address] 10-25-2024 12:37-0500 Body weight 76.[address] 10-03-2024 09:14-0500 Body mass index (BMI) [Ratio] 27.12 kg/m2 Ivory Carlos PA-C Work Phone: [facility] 10-03-2024 09:14-0500 Body weight 76.2 kg Ivory Carlos PA-C Work Phone: [facility] 10-03-2024 09:14-0500 Diastolic blood pressure 72 mm[Hg] Ivory Carlos PA-C Work Phone: [facility] 10-03-2024 09:14-0500 Heart rate 83 /min Ivory Carlos PA-C Work Phone: [facility] 10-03-2024 09:14-0500 Respiratory rate 16 /min Ivory Carlos PA-C Work Phone: [facility] 10-03-2024 09:14-0500 Systolic blood pressure 144 mm[Hg] Ivory Carlos PA-C Work Phone: [facility] 09-24-2024 11:45-0500 Body temperature 97.9 [degF] Dr. Yuko Lofton MD Work Phone: 09-24-2024 11:45-0500 Diastolic blood pressure 72 mm[Hg] Dr. Yuko Lofton MD Work Phone: 09-24-2024 11:45-0500 Heart rate 75 /min Dr. Yuko Lofton MD Work Phone: 09-24-2024 11:45-0500 Respiratory rate 12 /min Dr. Yuko Lofton MD Work Phone: 09-24-2024 11:45-0500 SaO2% (BldA) [Mass fraction] 95 % Dr. Yuko Lofton MD Work Phone: 09-24-2024 11:45-0500 Systolic blood pressure 140 mm[Hg] Dr. Yuko Lofton MD Work Phone: 08-22-2024 09:49-0500 Diastolic blood pressure 67 mm[Hg] Ivory Carlos PA-C Work Phone: [facility] 08-22-2024 09:49-0500 Heart rate 79 /min Ivory Carlos PA-C Work Phone: [facility] 08-22-2024 09:49-0500 Respiratory rate 16 /min Ivory Carlos PA-C Work Phone: [facility] 08-22-2024 09:49-0500 Systolic blood pressure 129 mm[Hg] Ivory Carlos PA-C Work Phone: [facility] 07-25-2024 10:51-0400 Body height 167.6 cm Ivory Carlos PA-C Work Phone: [facility] 07-25-2024 10:51-0400 Body mass index (BMI) [Ratio] 26.63 kg/m2 Ivory Carlos PA-C Work Phone: [facility] 07-25-2024 10:51-0400 Body weight 74.84 kg Ivoryumer Carlos PA-C Work Phone: [facility] 07-25-2024 10:51-0400 Diastolic blood pressure 76 mm[Hg] Ivory Carlos PA-C Work Phone: [facility] 07-25-2024 10:51-0400 Heart rate 93 /min Ivory Carlos PA-C Work Phone: [facility] 07-25-2024 10:51-0400 Respiratory rate 16 /min Ivory Carlos PA-C Work Phone: [facility] 07-25-2024 10:51-0400 Systolic blood pressure 143 mm[Hg] Ivory Carlos PA-C Work Phone: [facility] 07-24-2024 10:28-0400 Diastolic blood pressure 69 mm[Hg] Shelley Ramirez DO Work Phone: [facility] 07-24-2024 10:28-0400 Heart rate 86 /min Shelley Ramirez DO Work Phone: [facility] 07-24-2024 10:28-0400 Systolic blood pressure 132 mm[Hg] Shelley Ramirez DO Work Phone: [facility] 01-29-2024 10:26-0400 Body height 167.[address] Yuko Lofton Work Phone: 01-29-2024 10:26-0400 Body mass index (BMI) [Ratio] 26.6 kg/m2 Dr. Yuko Lofton Work Phone: 01-29-2024 10:26-0400 Body temperature 97.6 [degF] Dr. Yuko Lofton Work Phone: 01-29-2024 10:26-0400 Body weight 74.[address] Yuko Lofton Work Phone: 01-29-2024 10:26-0400 Diastolic blood pressure 78 mm[Hg] Dr. Yuko Lofton Work Phone: 01-29-2024 10:26-0400 Heart rate 64 /min Dr. Yuko Lofton Work Phone: 01-29-2024 10:26-0400 Respiratory rate 14 /min Dr. Yuko Lofton Work Phone: 01-29-2024 10:26-0400 SaO2% (BldA) [Mass fraction] 97 % Dr. Yuko Lofton Work Phone: 01-29-2024 10:26-0400 Systolic blood pressure 136 mm[Hg] Dr. Yuko Lofton Work Phone: 12-13-2023 13:14-0500 Body mass index (BMI) [Ratio] 26.4 kg/m2 Dr. Yuko Lofton Work Phone: 12-13-2023 13:14-0500 Body temperature 97.6 [degF] Dr. Yuko Lofton Work Phone: 12-13-2023 13:14-0500 Body weight 74.[address] Yuko Lofton Work Phone: 12-13-2023 13:14-0500 Diastolic blood pressure 81 mm[Hg] Dr. Yuko Lofton Work Phone: 12-13-2023 13:14-0500 Heart rate 72 /min Dr. Yuko Lofton Work Phone: 12-13-2023 13:14-0500 Respiratory rate 18 /min Dr. Yuko Lofton Work Phone: 12-13-2023 13:14-0500 SaO2% (BldA) [Mass fraction] 97 % Dr. Yuko Lofton Work Phone: 12-13-2023 13:14-0500 Systolic blood pressure 146 mm[Hg] Dr. Yuko Lofton Work Phone: 11-15-2023 11:03-0500 Body height 167.[address] Yuko Lofton Work Phone: 11-15-2023 11:03-0500 Body mass index (BMI) [Ratio] 26.3 kg/m2 Dr. Yuko Lofton Work Phone: 11-15-2023 11:03-0500 Body temperature 98.3 [degF] Dr. Yuko Lofton Work Phone: 11-15-2023 11:03-0500 Body weight 73.[address] Yuko Lofton Work Phone: 11-15-2023 11:03-0500 Diastolic blood pressure 82 mm[Hg] Dr. Yuko Lofton Work Phone: 11-15-2023 11:03-0500 Heart rate 83 /min Dr. Yuko Lofton Work Phone: 11-15-2023 11:03-0500 Respiratory rate 14 /min Dr. Yuko Lofton Work Phone: 11-15-2023 11:03-0500 SaO2% (BldA) [Mass fraction] 99 % Dr. Yuko Lofton Work Phone: 11-15-2023 11:03-0500 Systolic blood pressure 142 mm[Hg] Dr. Yuko Lofton Work Phone: 09-26-2023 11:26-0500 Body temperature 98.29 [degF] Yordy Bello MD Work Phone: [facility] 09-26-2023 11:26-0500 Diastolic blood pressure 80 mm[Hg] Yordy Bello MD Work Phone: [facility] 09-26-2023 11:26-0500 Heart rate 71 /min Yordy Bello MD Work Phone: [facility] 09-26-2023 11:26-0500 Respiratory rate 16 /min Yordy Bello MD Work Phone: [facility] 09-26-2023 11:26-0500 SaO2% (BldA) [Mass fraction] 94 % Yordy Bello MD Work Phone: [facility] 09-26-2023 11:26-0500 Systolic blood pressure 151 mm[Hg] Yordy Bello MD Work Phone: [facility] 09-26-2023 00:00-0500 Body height 167.6 cm Yordy Bello MD Work Phone: [facility] 09-26-2023 00:00-0500 Body mass index (BMI) [Ratio] 25.9 kg/m2 Yordy Bello MD Work Phone: [facility] 09-26-2023 00:00-0500 Body weight 72.8 kg Yordy Bello MD Work Phone: [facility] 08-11-2023 11:26-0400 Diastolic blood pressure 80 mm[Hg] Dr. Yuko Lofton Work Phone: 08-11-2023 11:26-0400 Systolic blood pressure 164 mm[Hg] Dr. Yuko Lofton Work Phone: 08-11-2023 11:21-0400 Body height 167.[address] Yuko Lofton Work Phone: 08-11-2023 11:21-0400 Body mass index (BMI) [Ratio] 25.9 kg/m2 Dr. Yuko Lofton Work Phone: 08-11-2023 11:21-0400 Body temperature 98.7 [degF] Dr. Yuko Lofton Work Phone: 08-11-2023 11:21-0400 Body weight 73.[address] Yuko Lofton Work Phone: 08-11-2023 11:21-0400 Heart rate 74 /min Dr. Yuko Lofton Work Phone: 08-11-2023 11:21-0400 Respiratory rate 16 /min Dr. Yuko Lofton Work Phone: 08-11-2023 11:21-0400 SaO2% (BldA) [Mass fraction] 97 % Dr. Yuko Lofton Work Phone: 06-16-2023 10:30-0400 Body mass index (BMI) [Ratio] 25.4 kg/m2 Dr. Yuko Lofton Work Phone: 06-16-2023 10:30-0400 Body temperature 98.6 [degF] Dr. Yuko Lofton Work Phone: 06-16-2023 10:30-0400 Body weight 71.[address] Yuko Lofton Work Phone: 06-16-2023 10:30-0400 Diastolic blood pressure 76 mm[Hg] Dr. Yuko Lofton Work Phone: 06-16-2023 10:30-0400 Heart rate 80 /min Dr. Yuko Lofton Work Phone: 06-16-2023 10:30-0400 Respiratory rate 18 /min Dr. Yuko Lofton Work Phone: 06-16-2023 10:30-0400 SaO2% (BldA) [Mass fraction] 97 % Dr. Yuko Lofton Work Phone: 06-16-2023 10:30-0400 Systolic blood pressure 146 mm[Hg] Dr. Yuko Lofton Work Phone: 06-13-2023 11:48-0400 Body mass index (BMI) [Ratio] 25.2 kg/m2 Dr. Yuko Lofton Work Phone: 06-13-2023 11:48-0400 Body temperature 98.2 [degF] Dr. Yuko Lofton Work Phone: 06-13-2023 11:48-0400 Body weight 70.[address] Yuko Lofton Work Phone: 06-13-2023 11:48-0400 Diastolic blood pressure 74 mm[Hg] Dr. Yuko Lofton Work Phone: 06-13-2023 11:48-0400 Heart rate 68 /min Dr. Yuko Lofton Work Phone: 06-13-2023 11:48-0400 Respiratory rate 15 /min Dr. Yuko Lofton Work Phone: 06-13-2023 11:48-0400 SaO2% (BldA) [Mass fraction] 97 % Dr. Yuko Lofton Work Phone: 06-13-2023 11:48-0400 Systolic blood pressure 144 mm[Hg] Dr. Yuko Lofton Work Phone: 05-10-2023 10:16-0400 Body mass index (BMI) [Ratio] 25.5 kg/m2 Dr. Yuko Lofton Work Phone: 05-10-2023 10:16-0400 Body temperature 97.2 [degF] Dr. Yuko Lofton Work Phone: 05-10-2023 10:16-0400 Body weight 71.[address] Yuko Lofton Work Phone: 05-10-2023 10:16-0400 Diastolic blood pressure 72 mm[Hg] Dr. Yuko Lofton Work Phone: 05-10-2023 10:16-0400 Heart rate 70 /min Dr. Yuko Lofton Work Phone: 05-10-2023 10:16-0400 Respiratory rate 18 /min Dr. Yuko Lofton Work Phone: 05-10-2023 10:16-0400 SaO2% (BldA) [Mass fraction] 97 % Dr. Yuko Lofton Work Phone: 05-10-2023 10:16-0400 Systolic blood pressure 142 mm[Hg] Dr. Yuko Lofton Work Phone: 04-20-2023 10:09-0400 Body weight 71.[address] Yuko Lofton Work Phone: 04-20-2023 10:09-0400 Diastolic blood pressure 72 mm[Hg] Dr. Yuko Lofton Work Phone: 04-20-2023 10:09-0400 Heart rate 66 /min Dr. Yuko Lofton Work Phone: 04-20-2023 10:09-0400 Respiratory rate 18 /min Dr. Yuko Lofton Work Phone: 04-20-2023 10:09-0400 Systolic blood pressure 132 mm[Hg] Dr. Yuko Lofton Work Phone: 02-06-2023 10:32-0400 Body height 167.[address] Yuko Lofton Work Phone: 02-06-2023 10:32-0400 Body mass index (BMI) [Ratio] 26.1 kg/m2 Dr. Yuko Lofton Work Phone: 02-06-2023 10:32-0400 Body temperature 98.9 [degF] Dr. Yuko Lofton Work Phone: 02-06-2023 10:32-0400 Body weight 73.[address] Yuko Lofton Work Phone: 02-06-2023 10:32-0400 Diastolic blood pressure 76 mm[Hg] Dr. Yuko Lofton Work Phone: 02-06-2023 10:32-0400 Heart rate 65 /min Dr. Yuko Lofton Work Phone: 02-06-2023 10:32-0400 Respiratory rate 16 /min Dr. Yuko Lofton Work Phone: 02-06-2023 10:32-0400 SaO2% (BldA) [Mass fraction] 96 % Dr. Yuko Lofton Work Phone: 02-06-2023 10:32-0400 Systolic blood pressure 124 mm[Hg] Dr. Yuko Lofton Work Phone: 11-30-2022 09:58-0500 Body height 167.[address] Yuko Lofton Work Phone: 11-30-2022 09:58-0500 Body mass index (BMI) [Ratio] 26.3 kg/m2 Dr. Yuko Lofton Work Phone: 11-30-2022 09:58-0500 Body weight 73.[address] Yuko Lofton Work Phone: 11-30-2022 09:58-0500 Diastolic blood pressure 78 mm[Hg] Dr. Yuko Lofton Work Phone: 11-30-2022 09:58-0500 Heart rate 66 /min Dr. Yuko Lofton Work Phone: 11-30-2022 09:58-0500 Respiratory rate 18 /min Dr. Yuko Lofton Work Phone: 11-30-2022 09:58-0500 SaO2% (BldA) [Mass fraction] 96 % Dr. Yuko Lofton Work Phone: 11-30-2022 09:58-0500 Systolic blood pressure 136 mm[Hg] Dr. Yuko Lofton Work Phone: 10-26-2022 10:39-0500 Body mass index (BMI) [Ratio] 26.1 kg/m2 Dr. Yuko Lofton Work Phone: 10-26-2022 10:39-0500 Body temperature 97.9 [degF] Dr. Yuko Lofton Work Phone: 10-26-2022 10:39-0500 Body weight 73.[address] Yuko Lofton Work Phone: 10-26-2022 10:39-0500 Diastolic blood pressure 78 mm[Hg] Dr. Yuko Lofton Work Phone: 10-26-2022 10:39-0500 Heart rate 48 /min Dr. Yuko Lofton Work Phone: 10-26-2022 10:39-0500 Respiratory rate 16 /min Dr. Yuko Lofton Work Phone: 10-26-2022 10:39-0500 SaO2% (BldA) [Mass fraction] 99 % Dr. Yuko Lofton Work Phone: 10-26-2022 10:39-0500 Systolic blood pressure 160 mm[Hg] Dr. Yuko Lofton Work Phone: 08-31-2022 10:34-0500 Body height 167.[address] Yuko Lofton Work Phone: Work Phone: 08-31-2022 10:34-0500 Body mass index (BMI) [Ratio] 26.6 kg/m2 Dr. Yuko Lofton Work Phone: 08-31-2022 10:34-0500 Body weight 74.[address] Yuko Lofton Work Phone: 08-31-2022 10:34-0500 Diastolic blood pressure 75 mm[Hg] Dr. Yuko Lofton Work Phone: 08-31-2022 10:34-0500 Heart rate 58 /min Dr. Yuko Lofton Work Phone: 08-31-2022 10:34-0500 Respiratory rate 20 /min Dr. Yuko Lofton Work Phone: 08-31-2022 10:34-0500 SaO2% (BldA) [Mass fraction] 97 % Dr. Yuko Lofton Work Phone: 08-31-2022 10:34-0500 Systolic blood pressure 149 mm[Hg] Dr. Yuko Lofton Work Phone: 08-03-2022 08:42-0400 Body mass index (BMI) [Ratio] 26.6 kg/m2 Dr. Yuko Lofton Work Phone: Work Phone: 08-03-2022 08:42-0400 Body temperature 97.3 [degF] Dr. Yuko Lofton Work Phone: Work Phone: 08-03-2022 08:42-0400 Body weight 74.[address] Yuko Lofton Work Phone: Work Phone: 08-03-2022 08:42-0400 Diastolic blood pressure 80 mm[Hg] Dr. Yuko Lofton Work Phone: Work Phone: 08-03-2022 08:42-0400 Heart rate 67 /min Dr. Yuko Lofton Work Phone: Work Phone: 08-03-2022 08:42-0400 Respiratory rate 16 /min Dr. Yuko Lofton Work Phone: Work Phone: 08-03-2022 08:42-0400 SaO2% (BldA) [Mass fraction] 97 % Dr. Yuko Lofton Work Phone: Work Phone: 08-03-2022 08:42-0400 Systolic blood pressure 126 mm[Hg] Dr. Yuko Lofton Work Phone: Work Phone: 06-22-2022 09:45-0400 Body height 167.[address] Yuko Lofton Work Phone: Work Phone: 06-22-2022 09:45-0400 Body mass index (BMI) [Ratio] 26.4 kg/m2 Dr. Yuko Lofton Work Phone: Work Phone: 06-22-2022 09:45-0400 Body temperature 97.8 [degF] Dr. Yuko Lofton Work Phone: Work Phone: 06-22-2022 09:45-0400 Body weight 74.[address] Yuko Lofton Work Phone: Work Phone: 06-22-2022 09:45-0400 Diastolic blood pressure 84 mm[Hg] Dr. Yuko Lofton Work Phone: Work Phone: 06-22-2022 09:45-0400 Heart rate 62 /min Dr. Yuko Lofton Work Phone: Work Phone: 06-22-2022 09:45-0400 Respiratory rate 16 /min Dr. Yuko Lofton Work Phone: Work Phone: 06-22-2022 09:45-0400 SaO2% (BldA) [Mass fraction] 96 % Dr. Yuko Lofton Work Phone: Work Phone: 06-22-2022 09:45-0400 Systolic blood pressure 136 mm[Hg] Dr. Yuko Lofton Work Phone: Work Phone: 06-19-2022 03:27-0400 Body temperature 98.4 [degF] Dr. Yuko Lofton Work Phone: Work Phone: 06-19-2022 03:27-0400 Diastolic blood pressure 74 mm[Hg] Dr. Yuko Lofton Work Phone: Work Phone: 06-19-2022 03:27-0400 Heart rate 74 /min Dr. Yuko Lofton Work Phone: Work Phone: 06-19-2022 03:27-0400 Respiratory rate 17 /min Dr. Yuko Lofton Work Phone: Work Phone: 06-19-2022 03:27-0400 SaO2% (BldA) [Mass fraction] 99 % Dr. Yuko Lofton Work Phone: Work Phone: 06-19-2022 03:27-0400 Systolic blood pressure 138 mm[Hg] Dr. Yuko Lofton Work Phone: Work Phone: 06-19-2022 01:15-0400 Body height 167.[address] Yuko Lofton Work Phone: Work Phone: 06-19-2022 01:15-0400 Body mass index (BMI) [Ratio] 27.6 kg/m2 Dr. Yuko Lofton Work Phone: Work Phone: 06-19-2022 01:15-0400 Body weight 77.[address] Yuko Lofton Work Phone: Work Phone: 06-17-2022 10:43-0400 Body mass index (BMI) [Ratio] 26.8 kg/m2 Dr. Yuko Lofton Work Phone: Work Phone: 06-17-2022 10:43-0400 Body weight 75.[address] Yuko Lofton Work Phone: Work Phone: 06-17-2022 10:43-0400 Diastolic blood pressure 78 mm[Hg] Dr. Yuko Lofton Work Phone: Work Phone: 06-17-2022 10:43-0400 Heart rate 68 /min Dr. Yuko Lofton Work Phone: Work Phone: 06-17-2022 10:43-0400 Respiratory rate 18 /min Dr. Yuko Lofton Work Phone: Work Phone: 06-17-2022 10:43-0400 SaO2% (BldA) [Mass fraction] 96 % Dr. Yuko Lofton Work Phone: Work Phone: 06-17-2022 10:43-0400 Systolic blood pressure 138 mm[Hg] Dr. Yuko Lofton Work Phone: Work Phone: 05-24-2022 10:50-0400 Body height 167.[address] Yuko Lofton Work Phone: Work Phone: 05-24-2022 10:50-0400 Body mass index (BMI) [Ratio] 26.8 kg/m2 Dr. Yuko Lofton Work Phone: Work Phone: 05-24-2022 10:50-0400 Body temperature 98.1 [degF] Dr. Yuko Lofton Work Phone: Work Phone: 05-24-2022 10:50-0400 Body weight 75.[address] Yuko Lofton Work Phone: Work Phone: 05-24-2022 10:50-0400 Diastolic blood pressure 88 mm[Hg] Dr. Yuko Lofton Work Phone: Work Phone: 05-24-2022 10:50-0400 Heart rate 73 /min Dr. Yuko Lofton Work Phone: Work Phone: 05-24-2022 10:50-0400 Respiratory rate 16 /min Dr. Yuko Lofton Work Phone: Work Phone: 05-24-2022 10:50-0400 SaO2% (BldA) [Mass fraction] 97 % Dr. Yuko Lofton Work Phone: Work Phone: 05-24-2022 10:50-0400 Systolic blood pressure 140 mm[Hg] Dr. Yuko Lofton Work Phone: Work Phone: 03-30-2022 09:50-0400 Body height 167.[address] Cole Ochoa Work Phone: Work Phone: 03-30-2022 09:50-0400 Body mass index (BMI) [Ratio] 27.1 kg/m2 Dr. Cole Ochoa Work Phone: Work Phone: 03-30-2022 09:50-0400 Body temperature 97.3 [degF] Dr. Cole Ochoa Work Phone: Work Phone: 03-30-2022 09:50-0400 Body weight 76.[address] Cole Ochoa Work Phone: Work Phone: 03-30-2022 09:50-0400 Diastolic blood pressure 80 mm[Hg] Dr. Cole Ochoa Work Phone: Work Phone: 03-30-2022 09:50-0400 Heart rate 67 /min Dr. Cole Ochoa Work Phone: Work Phone: 03-30-2022 09:50-0400 Respiratory rate 18 /min Dr. Cole Ochoa Work Phone: Work Phone: 03-30-2022 09:50-0400 SaO2% (BldA) [Mass fraction] 97 % Dr. Cole Ochoa Work Phone: Work Phone: 03-30-2022 09:50-0400 Systolic blood pressure 142 mm[Hg] Dr. Cole Ochoa Work Phone: Work Phone: 02-23-2022 10:58-0400 Body temperature 97.3 [degF] Dr. Cole Ochoa Work Phone: Work Phone: 02-23-2022 10:58-0400 Diastolic blood pressure 71 mm[Hg] Dr. Cole Ochoa Work Phone: Work Phone: 02-23-2022 10:58-0400 Heart rate 76 /min Dr. Cole Ochao Work Phone: Work Phone: 02-23-2022 10:58-0400 Respiratory rate 16 /min Dr. Cole Ochoa Work Phone: Work Phone: 02-23-2022 10:58-0400 SaO2% (BldA) [Mass fraction] 95 % Dr. Cole Ochoa Work Phone: Work Phone: 02-23-2022 10:58-0400 Systolic blood pressure 147 mm[Hg] Dr. Cole Ochoa Work Phone: Work Phone: 02-23-2022 09:18-0400 Body height 165.[address] Cole Ochoa Work Phone: Work Phone: 02-23-2022 09:18-0400 Body mass index (BMI) [Ratio] 27.8 kg/m2 Dr. Cole Ochoa Work Phone: Work Phone: 02-23-2022 09:18-0400 Body weight 75.[address] Cole Ochoa Work Phone: Work Phone: 01-27-2022 08:48-0400 Body mass index (BMI) [Ratio] 29.2 kg/m2 Dr. Cole Ochoa Work Phone: Work Phone: 01-27-2022 08:48-0400 Body temperature 97.6 [degF] Dr. Cole Ochoa Work Phone: Work Phone: 01-27-2022 08:48-0400 Body weight 79.[address] Cole Ochoa Work Phone: Work Phone: 01-27-2022 08:48-0400 Diastolic blood pressure 77 mm[Hg] Dr. Cole Ochoa Work Phone: Work Phone: 01-27-2022 08:48-0400 Heart rate 105 /min Dr. Cole Ochoa Work Phone: Work Phone: 01-27-2022 08:48-0400 Respiratory rate 17 /min Dr. Cole Ochoa Work Phone: Work Phone: 01-27-2022 08:48-0400 SaO2% (BldA) [Mass fraction] 95 % Dr. Cole Ochoa Work Phone: Work Phone: 01-27-2022 08:48-0400 Systolic blood pressure 156 mm[Hg] Dr. Cole Ochoa Work Phone: Work Phone: 01-27-2022 08:48-0400 Body mass index (BMI) [Ratio] 29.2 kg/m2 Dr. Cole Ochoa Work Phone: Work Phone: 01-27-2022 08:48-0400 Body temperature 97.6 [degF] Dr. Cole Ochoa Work Phone: Work Phone: 01-27-2022 08:48-0400 Body weight 79.[address] Cole Ochoa Work Phone: Work Phone: 01-27-2022 08:48-0400 Diastolic blood pressure 77 mm[Hg] Dr. Cole Ochoa Work Phone: Work Phone: 01-27-2022 08:48-0400 Heart rate 105 /min Dr. Cole Ochoa Work Phone: Work Phone: 01-27-2022 08:48-0400 Respiratory rate 17 /min Dr. Cole Ochoa Work Phone: Work Phone: 01-27-2022 08:48-0400 SaO2% (BldA) [Mass fraction] 95 % Dr. Cole Ochoa Work Phone: Work Phone: 01-27-2022 08:48-0400 Systolic blood pressure 156 mm[Hg] Dr. Cole Ochoa Work Phone: Work Phone: 12-28-2021 14:06-0400 Body mass index (BMI) [Ratio] 27.9 kg/m2 Dr. Cole Ochoa Work Phone: Work Phone: 12-28-2021 14:06-0400 Body temperature 97.2 [degF] Dr. Cole Ochoa Work Phone: Work Phone: 12-28-2021 14:06-0400 Body weight 78.[address] Cole Ochoa Work Phone: Work Phone: 12-28-2021 14:06-0400 Diastolic blood pressure 82 mm[Hg] Dr. Cloe Ochoa Work Phone: Work Phone: 12-28-2021 14:06-0400 Heart rate 79 /min Dr. Cole Ochoa Work Phone: Work Phone: 12-28-2021 14:06-0400 Respiratory rate 16 /min Dr. Cole Ochoa Work Phone: Work Phone: 12-28-2021 14:06-0400 SaO2% (BldA) [Mass fraction] 97 % Dr. Cole Ochoa Work Phone: Work Phone: 12-28-2021 14:06-0400 Systolic blood pressure 156 mm[Hg] Dr. Cole Ochoa Work Phone: Work Phone: 12-28-2021 14:06-0400 Body height 167.[address] Cole Ochoa Work Phone: Work Phone: 12-28-2021 14:06-0400 Body mass index (BMI) [Ratio] 27.9 kg/m2 Dr. Cole Ocoha Work Phone: Work Phone: 12-28-2021 14:06-0400 Body temperature 97.2 [degF] Dr. Cole Ochoa Work Phone: Work Phone: 12-28-2021 14:06-0400 Body weight 78.[address] Cole Ochoa Work Phone: Work Phone: 12-28-2021 14:06-0400 Diastolic blood pressure 82 mm[Hg] Dr. Cole Ochoa Work Phone: Work Phone: 12-28-2021 14:06-0400 Heart rate 79 /min Dr. Cole Ochoa Work Phone: Work Phone: 12-28-2021 14:06-0400 Respiratory rate 16 /min Dr. Cole Ochoa Work Phone: Work Phone: 12-28-2021 14:06-0400 SaO2% (BldA) [Mass fraction] 97 % Dr. Cole Ochoa Work Phone: Work Phone: 12-28-2021 14:06-0400 Systolic blood pressure 156 mm[Hg] Dr. Cole Ochoa Work Phone: Work Phone: 12-16-2021 09:04-0500 Body weight 78.[address] Cole Ochoa Work Phone: Work Phone: 12-16-2021 09:04-0500 Diastolic blood pressure 72 mm[Hg] Dr. Cole Ochoa Work Phone: Work Phone: 12-16-2021 09:04-0500 Heart rate 68 /min Dr. Cole Ochoa Work Phone: Work Phone: 12-16-2021 09:04-0500 Respiratory rate 16 /min Dr. Cole Ochoa Work Phone: Work Phone: 12-16-2021 09:04-0500 SaO2% (BldA) [Mass fraction] 97 % Dr. Cole Ochoa Work Phone: Work Phone: 12-16-2021 09:04-0500 Systolic blood pressure 149 mm[Hg] Dr. Cole Ochoa Work Phone: Work Phone: 12-16-2021 08:04-0500 Body weight 78.[address] Cole Ochoa Work Phone: Work Phone: 12-16-2021 08:04-0500 Diastolic blood pressure 72 mm[Hg] Dr. Cole Ochoa Work Phone: Work Phone: 12-16-2021 08:04-0500 Heart rate 68 /min Dr. Cole Ochoa Work Phone: Work Phone: 12-16-2021 08:04-0500 Respiratory rate 16 /min Dr. Cole Ochoa Work Phone: Work Phone: 12-16-2021 08:04-0500 SaO2% (BldA) [Mass fraction] 97 % Dr. Cole Ochoa Work Phone: Work Phone: 12-16-2021 08:04-0500 Systolic blood pressure 149 mm[Hg] Dr. Cole Ochoa Work Phone: Work Phone: 03-10-2021 13:06-0400 Body mass index (BMI) [Ratio] 27.3 kg/m2 Dr. Cole Ochoa Work Phone: Work Phone: 03-10-2021 13:06-0400 Body mass index (BMI) [Ratio] 27.3 kg/m2 Dr. Cole Ochoa Work Phone: Work Phone: Encounters Encounter Date Encounter Type Care Provider Facility Start: 08-15-2025 End: 08-15-2025 ambulatory Yuko Lofton Facility:[facility] Start: 06-30-2025 End: 06-30-[address] Yuko Lofton MD -[facility] Work Phone: Start: 06-30-2025 End: 06-30-[address] Yuko Lofton MD Work Phone: -[facility] Start: 05-12-2025 End: 05-12-2025 Office outpatient visit 15 minutes Natacha Horowitz SEED SORTER-PARKING OFFICER Work Phone: [facility] Office Building Comment on above: Chronic left shoulde r pain (Primary Dx); Right hip pain; Sacroiliitis Start: 05-12-2025 End: 05-12-2025 ambulatory NATACHA Camilo LOR [facility] Start: 04-30-2025 End: 04-30-[address] Yuko Lofton MD Work Phone: -[facility] Start: 04-30-2025 End: 04-30-[address] Yuko Lofton MD -[facility] Work Phone: Start: 04-15-2025 Non-patient / Non-visit Dr. Alise Bateman MD -[facility] Work Phone: Start: 03-24-2025 End: 03-24-[address] Yuko Lofton MD -[facility] Work Phone: Start: 03-24-2025 End: 03-24-[address] Yuko Lofton MD Work Phone: [facility] Work Phone: Start: 03-04-2025 End: 03-04-2025 Patient encounter procedure Carisa Carty DISPATCHER T[employer]-C -[facility] Work Phone: Start: 03-04-2025 End: 03-04-[address] Yuko Lofton MD Work Phone: [facility] Work Phone: Start: 03-04-2025 End: 03-04-2025 ambulatory Carisa Carty NP Facility: Start: 02-04-2025 End: 02-04-2025 Patient encounter procedure Santhosh MCKEON -Laboratory, [place] Start: 02-04-2025 End: 02-04-2025 ambulatory Yuko Lofton Facility: Start: 01-31-2025 End: 01-31-[address] Yuko Lofton MD Work Phone: Work Phone: Start: 01-31-2025 End: 01-31-2025 Patient encounter procedure Santhosh MCKEON -Cat Scan, [facility] Work Phone: Start: 01-31-2025 End: 01-31-2025 ambulatory Santhosh MCKEON Facility: Start: 01-10-2025 End: 01-10-[address] Yuko Lofton MD Work Phone: Work Phone: Start: 01-10-2025 End: 01-10-2025 Patient encounter procedure Santhosh MCKEON -Laboratory, Spec[facility] Work Phone: Start: 01-10-2025 End: 01-10-2025 ambulatory [facility] Facility: Start: 01-03-2025 End: 01-03-2025 Patient encounter procedure Santhosh MCKEON -[facility] Work Phone: Start: 01-03-2025 End: 01-03-2025 ambulatory [facility] Facility:[facility] Start: 12-13-2024 End: 12-13-2024 Patient encounter procedure Santhosh MCKEON -[facility] Work Phone: Start: 12-13-2024 End: 12-13-2024 ambulatory [facility] Start: 12-02-2024 End: 12-02-2024 Emergency department patient visit Dr. Monet Amato DO -Emergency Department Work Phone: Start: 11-27-2024 End: 11-27-[address] Yuko Lofton MD -[facility] Work Phone: Start: 11-27-2024 End: 11-27-2024 ambulatory [facility] Start: 11-27-2024 End: 11-27-2024 ambulatory [facility] Facility: Start: 11-14-2024 End: 11-14-2024 Office outpatient visit 15 minutes Ivory Carlos PA-C Work Phone: [facility] Office Building Comment on above: Arthritis of right h ip (Primary Dx); Right hip pain; Chronic left shoulder pain; Trochanteric bursitis of right hip Start: 11-14-2024 End: 11-14-2024 ambulatory IVORY C [facility] Start: 10-25-2024 End: 10-25-2024 Subsequent hospital visit by physician Shelley Ramirez DO Work Phone: [facility] [place] Comment on above: Right hip pain; Arthritis of right hip Start: 10-25-2024 End: 10-25-2024 ambulatory SHELLEY RAMIREZ [facility] Start: 10-03-2024 End: 10-03-2024 Subsequent hospital visit by physician Jimmy X-Ray 1 [facility] Comment on above: Right hip pain; Arthritis of right hip Start: 10-03-2024 End: 10-03-2024 Office outpatient visit 25 minutes Ivory Carlos PA-C Work Phone: [facility] Office Building Comment on above: Arthritis of right h ip (Primary Dx); Right hip pain Start: 10-03-2024 End: 10-03-2024 ambulatory IVORY Patterson [facility] Start: 09-24-2024 End: 09-24-2024 Patient encounter procedure Coleman Nieto PA -[facility] Work Phone: Start: 09-24-2024 End: 09-24-2024 ambulatory Efewongbe Olee Facility:[facility] Start: 09-11-2024 End: 09-11-2024 ambulatory Efewongbe Olee Facility:[facility] Start: 08-22-2024 End: 08-22-2024 Office outpatient visit 25 minutes Ivory Carlos PA-C Work Phone: [facility] Comment on above: Arthritis of left sh oulder region (Primary Dx); Chronic left shoulder pain; Cervical neuritis Start: 08-22-2024 End: 08-22-2024 ambulatory IVORY Patterson [facility] Start: 07-25-2024 End: 07-25-2024 Subsequent hospital visit by physician Jimmy X-Ray Fluoro 1 [facility] Comment on above: Cervical neuritis; Chronic left shoulder pain Start: 07-25-2024 End: 07-25-2024 ambulatory IVORY Patterson [facility] Start: 07-25-2024 End: 07-25-2024 Office outpatient new 30 minutes Ivory Carlos PA-C Work Phone: [facility] Comment on above: Cervical neuritis (P rimary Dx); Chronic left shoulder pain Start: 07-25-2024 End: 07-25-2024 ambulatory IVORY CARLOS [facility] Start: 07-24-2024 End: 07-24-2024 Erroneous Encounter Shelley Ramirez DO Work Phone: [facility] Comment on above: Procedure and treatm ent not carried out due to patient leaving prior to being seen by health care provider (Primary Dx) Start: 07-24-2024 End: 07-24-2024 ambulatory SHELLEY RAMIREZ [facility] Start: 02-06-2024 End: 02-06-[address] Yuko Lofton Work Phone: Work Phone: Start: 02-06-2024 End: 02-06-[address] Yuko Lofton Work Phone: [facility] Work Phone: Start: 01-29-2024 End: 01-29-[address] Yuko Lofton Work Phone: Work Phone: Start: 01-29-2024 End: 01-29-[address] Yuko Lofton Work Phone: [facility] Work Phone: Start: 01-29-2024 End: 01-29-[address] Yuko Lofton Work Phone: [facility] Work Phone: Start: 12-13-2023 End: 12-13-[address] Yuko Lofton Work Phone: [facility] Work Phone: Start: 12-05-2023 End: 12-05-[address] Yuko Lofton Work Phone: [facility] Work Phone: Start: 12-01-2023 End: 12-01-[address] Yuko Lofton Work Phone: Work Phone: Start: 12-01-2023 End: 12-01-[address] Yuko Lofton Work Phone: -Outpatient Breast Imaging Work Phone: Start: 11-15-2023 End: 11-15-[address] Yuko Lofton Work Phone: [facility] Work Phone: Start: 09-26-2023 End: 09-26-[address] [facility] Start: 09-26-2023 End: 09-26-2023 Subsequent hospital visit by physician [facility] Start: 09-25-2023 End: 09-26-2023 Emergency department patient visit YUKO LOFTON [facility] Start: 08-11-2023 End: 08-11-[address] Yuko Lofton Work Phone: Work Phone: Start: 08-11-2023 End: 08-11-[address] Yuko Lofton Work Phone: -Laboratory, [place] Start: 08-11-2023 End: 08-11-[address] Yuko Lofton Work Phone: [facility] Work Phone: Start: 06-16-2023 End: 06-16-[address] Yuko Lofton Work Phone: [facility] Work Phone: Start: 06-13-2023 End: 06-13-[address] Yuko Lofton Work Phone: [facility] Work Phone: Start: 05-10-2023 End: 05-10-[address] Yuko Lofton Work Phone: [facility] Work Phone: Start: 04-20-2023 End: 04-20-[address] Yuko Lofton Work Phone: [facility] Work Phone: Start: 04-03-2023 Non-patient / Non-visit Dr. Yuko Lofton Work Phone: [facility] Start: 04-03-2023 End: 04-03-[address] Yuko Lofton Work Phone: -Cardiovascular Services Work Phone: Start: 02-23-2023 End: 02-23-[address] Yuko Lofton Work Phone: Work Phone: Start: 02-23-2023 End: 02-23-[address] Yuko Lofton Work Phone: -Physical Therapy Work Phone: Start: 02-06-2023 End: 02-06-[address] Yuko Lofton Work Phone: Work Phone: Start: 02-06-2023 End: 02-06-[address] Yuko Lofton Work Phone: [facility] Start: 02-06-2023 End: 02-06-[address] Yuko Lofton Work Phone: [facility] Start: 12-05-2022 End: 12-05-[address] Yuko Lofton Work Phone: Work Phone: Start: 12-05-2022 End: 12-05-[address] [facility] Start: 11-30-2022 End: 11-30-[address] Yuko Lofton Work Phone: [facility] Start: 11-21-2022 End: 11-21-[address] Yuko Lofton Work Phone: Work Phone: Start: 11-21-2022 End: 11-21-[address] [facility] Start: 10-26-2022 End: 10-26-[address] Yuko Lofton Work Phone: [facility] Start: 10-21-2022 End: 10-21-[address] Yuk[facility] Lo[facility] [place] Start: 09-12-2022 Non-patient / Non-visit Dr. Yuko Lofton Work Phone: [facility] Start: 09-12-2022 End: 09-12-[address] Yuko Rodrigez Phone: Work Phone: Start: 09-12-2022 End: 09-12-[address] Yuko Lofton Work Phone: -Cardiovascular Services Start: 08-31-2022 End: 08-31-[address] Yuko Lofton Work Phone: Work Phone: Start: 08-31-2022 End: 08-31-[address] Yuko Lofton Work Phone: [facility] Start: 08-03-2022 End: 08-03-[address] Yuko Lofton Work Phone: [facility] Start: 07-04-2022 End: 07-04-[address] Yuko Lofton Work Phone: Work Phone: Start: 07-04-2022 End: 07-04-[address] Yuko Lofton Work Phone: -Physical Therapy Start: 07-04-[address] David Lofton Work Phone: -Physical Therapy Start: 06-22-2022 End: 06-22-[address] Yuko Lofton Work Phone: Work Phone: Start: 06-22-2022 End: 06-22-[address] Yuko Lofton Work Phone: -Radiology, [facility] Start: 06-19-2022 End: 06-19-2022 Emergency department patient visit Dr. Yuko Lofton Work Phone: -Emergency Department Start: 06-17-2022 End: 06-17-[address] Yuko Lofton Work Phone: Work Phone: Start: 06-17-2022 End: 06-17-[address] Yuko Lofton Work Phone: -Laboratory Start: 06-17-2022 End: 06-17-[address] Yuko Lofton Work Phone: [facility] Start: 06-15-2022 End: 06-15-[address] Yuko Lofton Work Phone: Work Phone: Start: 06-15-2022 End: 06-15-[address] [facility] Lo[facility] Start: 06-09-2022 End: 06-09-[address] Yuko Lofton Work Phone: Work Phone: Start: 06-09-2022 End: 06-09-[address] Yuko Lofton Work Phone: [facility] Start: 05-27-2022 End: 05-27-[address] Yuk[facility] Lofton [facility] Start: 05-24-2022 End: 05-24-[address] Yuk[facility] Lofton [facility] Start: 05-24-2022 End: 05-24-[address] Yuko Lofton Work Phone: [facility] Start: 03-30-2022 End: 03-30-[address] Cole Ochoa Work Phone: [facility] Start: 02-23-2022 Non-patient / Non-visit Dr. Cole Ochoa Work Phone: [facility] Start: 02-23-2022 End: 02-23-2022 Admission to same day surgery center Dr. Cole Ochoa Work Phone: -Endoscopy Start: 01-27-2022 End: 01-27-[address] Cole Ochoa Work Phone: [facility] Start: 01-06-2022 Non-patient / Non-visit Dr. Cole Ochoa Work Phone: [facility] Start: 01-06-2022 End: 01-06-[address] Cole Ochoa Work Phone: -Cardiovascular Services Start: 12-28-2021 End: 12-28-[address] Cole Ochoa Work Phone: -Laboratory, [facility] Start: 12-16-2021 End: 12-16-[address] Cole Ochoa Work Phone: -[facility] Start: 10-07-[address] Cole Ochoa Work Phone: -Outpatient Bone Densitometry Start: 01-11-2018 [facility] Date Procedure Procedure Detail Performing Clinician Start: 01-31-2025 CT of abdomen and pelvis without contrast Dr. Yuko Lofton MD Work Phone: Start: 01-10-2025 Urnls dip stick/tablet reagent auto microscopy Dr. Yuko Lofton MD Work Phone: Start: 02-17-2025 Urnls dip stick/tablet reagent auto microscopy Dr. Yuko Lofton MD Work Phone: Start: 12-02-2024 X-ray of chest, PA and lateral views Dr. Yuko Lofton MD Work Phone: Start: 12-02-[address] Yuko Lofton MD Work Phone: Start: 12-02-2024 Measurement of renal function Dr. Yuko Lofton MD Work Phone: Comment on above: GFR Calc Start: 12-02-2024 SARS-CoV-2, Influenza & RSV (PCR) Dr. Yuko Lofton MD Work Phone: Start: 12-02-[address] Yuko Lofton MD Work Phone: Start: 11-27-2024 Measurement of renal function Dr. Yuko Lofton MD Work Phone: Comment on above: GFR Calc Start: 10-25-2024 FL PAIN MANAGEMENT Ivory MCKEON-C Work Phone: Start: 10-25-2024 Fluoroscopic guidance needle placement add on Ivory MCKEON-C Work Phone: Start: 02-06-[address] Yuko Lofton Work Phone: Start: 01-29-2024 X-ray of cervical spine Dr. Yuko Lofton Work Phone: Start: 12-05-[address] Yuko Lofton Work Phone: Start: 12-01-[address] Yuko Lofton Work Phone: Start: 09-26-2023 Electrocardiogram Yordy Bello MD Work Phone: Start: 09-26-2023 Assay of troponin quantitative Yordy Bello MD Work Phone: Start: 09-26-2023 Ct angiography chest w/contrast/noncontrast Roger Moore MD Work Phone: Start: 09-26-2023 Assay of troponin quantitative Yordy Bello MD Work Phone: Start: 09-26-2023 End: 09-26-2023 Basic metabolic panel calcium total Roger Moore MD Work Phone: Start: 09-26-2023 Lipid panel Roger Moore MD Work Phone: Start: 09-26-2023 Influenza virus A and B RNA and SARS-CoV-2 (COVID-19) N gene panel - Respiratory specimen by GODFREY with probe detection Roger Moore MD Work Phone: Start: 02-06-2023 Plain X-ray of hip Dr. Yuko Lofton Work Phone: Start: 06-22-2022 Plain X-ray of shoulder Dr. Yuko Lofton Work Phone: Start: 06-22-2022 X-ray of cervical spine Dr. Yuko Lofton Work Phone: Start: 06-19-2022 Plain chest X-ray Dr. Yuko Lofton Work Phone: Start: 06-09-2022 Computed tomography of abdomen and pelvis with contrast Dr. Yuko Lofton Work Phone: Start: 02-23-[address] Cole Ochoa Work Phone: Start: 01-06-2022 Radionuclide imaging of perfusion of myocardium under exercise stress Dr. Cole Ochoa Work Phone: Start: 10-07-2021 Dual energy X-ray absorptiometry Dr. Cole Ochoa Work Phone: H/O: hysterectomy History of hysterectomy Dr. Cole Ochoa Work Phone: H/O: surgery History of lymph node excision Dr. Cole Ochoa Work Phone: History of cholecystectomy Histo ry of cholecystectomy Dr. Cole Ochoa Work Phone: History of placement of stent for coronary artery disease History of coronary artery stent placement Dr. Cole Ochoa Work Phone: Comment on above: PCI-JENAE- Mid RCA w/ 4.00 x 20 mm Synergy Stent and JENAE-Mid LAD w/ 4.00 x 20 mm Synergy Stent 01/02/20 History of placement of stent for coronary artery disease History of coronary artery stent placement Carisa Carty DISPATCHER TUGBOAT-C Urine culture Dr. Yuko Lofton Work Phone: Plan of Treatment Date Care Activity Detail Author Start: 06-16-2025 COVID-19 Vaccine ( season) COVID-19 Vaccine ( season) [facility] Start: 06-16-2025 Influenza vaccination Influenza Vacc ine (#1) [facility] Start: 12-02-2024 [facility] Start: 11-14-2024 End: 11-14-2024 Patient encounter procedure 11/14/2024 1:45 PM EST Office Visit [facility] [address] [place] [address] Ivory Carlos PA-C [address] [place] [address] [place], [place] [id number] [facility] Start: 10-03-2024 End: 10-03-2025 FL pain management [place] pain management Imaging Routine Right hip pain Arthritis of right hip Expected: 10/03/2024, Expires: 10/03/2025 [facility] Work Phone: Comment on above: Expected: 10/03/2024 , Expires: 10/03/2025 Start: 10-03-2024 End: 10-03-2025 Joint Injection/Aspiration Joint Injection/Aspiration Pain Management Routine Right hip pain Arthritis of right hip Expected: 10/03/2024, Expires: 10/03/2025 [facility] Work Phone: Comment on above: Expected: 10/03/2024 , Expires: 10/03/2025 Start: 10-03-2024 End: 10-03-2025 XR Pelvis 1 or 2 Views [facility] Work Phone: Comment on above: Expected: 10/03/2024 , Expires: 10/03/2025 Once for 1 Occurrenc es starting 10/03/2024 until 10/03/2024 Start: 09-19-2024 End: 09-19-2024 Patient encounter procedure 09/19/2024 11:45 AM EST Office Visit [facility] [place] [address] [address] [place] [id number] Ivory Carlos PA-C [address] [place] [address] [place] [address] [facility] Start: 09-18-2024 End: 09-18-2024 Patient encounter procedure 09/18/2024 2:30 PM EST Office Visit [facility] [address] [place] [phone] Ivory Carlos PA-C [address] [place] [address] [place] [address] [facility] Start: 07-25-2024 End: 07-25-2025 XR Cervical spine 2 or 3 Views [facility] Work Phone: Comment on above: Expected: 07/25/2024 (Approximate), Expires: 07/25/2025 Once for 1 Occurrenc es starting 07/25/2024 until 07/25/2024 Start: 07-25-2024 End: 07-25-2025 XR Shoulder - left 2 Views [facility] Work Phone: Comment on above: Expected: 07/25/2024 , Expires: 07/25/2025 Once for 1 Occurrenc es starting 07/25/2024 until 07/25/2024 Start: 07-25-2024 End: 07-25-2024 Patient encounter procedure 07/25/2024 11:30 AM EDT Office Visit [facility] [address] [place] [address] Ivory Carlos PA-C [address] [place], [place] [id number] [facility] Start: 06-16-2024 COVID-19 Vaccine () COVID-19 Vaccine () [facility] Start: 06-16-2024 COVID-19 Vaccine ( season) COVID-19 Vaccine () [facility] Start: 06-16-2024 COVID-19 Vaccine () COVID-19 Vaccine () [facility] Start: 05-10-2023 Patient referral [facility] Work Phone: Start: 06-22-2022 Plain X-ray of shoulder Shoulder min 2 Views Work Phone: Start: 06-22-2022 XR Shoulder GE 2 Views Work Phone: Start: 06-17-2022 Evaluation of diagnostic study results Work Phone: Start: 02-23-2022 Patient discharge [facility] Work Phone: Start: 12-28-2021 Patient referral [facility] Work Phone: Start: 01-26-2020 RSV High Risk: (Elde rly (60+) or Population) (1 - 1-dose 75+ series) RSV High Risk: (Elderly (60+) or Population) (1 - 1-dose 75+ series) [facility] Start: 01-21-2017 Pneumococcal vaccination Pneumococcal Vaccine (2 of 2 - PCV) [facility] Start: 01-21-2017 Pneumococcal Vaccine : 65+ Years (2 of 2 - PCV) Pneumococcal Vaccine: 65+ Years (2 of 2 - PCV) [facility] Start: 2010 Screening for osteoporosis Bone Density Scan [facility] Start: 2005 RSV patient s and/or patients aged 60+ years (1 - 1-dose 60+ series) RSV patients and/or patients aged 60+ years (1 - 1-dose 60+ series) [facility] Start: 1995 Zoster Vaccines (1 o f 2) Zoster Vaccines (1 of 2) [facility] Start: 1967 DTaP/Tdap/Td Vaccine s (1 - Tdap) DTaP/Tdap/Td Vaccines (1 - Tdap) [facility] Start: 1963 Hepatitis C screening Hepatitis C Sc [facility] Start: 1945 Annual wellness visit [facility] Start: 1945 Lipid panel Lipid Panel [facility] Start: 1945 Medicare Annual Wellness Visit Medicare Annual Wellness Visit (AWV) [facility] Start: 1945 Screening for osteoporosis Bone Density Scan [facility] Bacteria identified in Urine by Culture Urine Culture Work Phone: Basic metabolic 2008 panel with ionized calcium - Serum or Plasma Blood chemistry [facility] Work Phone: CBC W Auto Different ial panel - Blood Colonoscopy [facility] Work Phone: CT Abdomen and Pelvi s W contrast IV Work Phone: Evaluation of diagnostic study results Work Phone: Lipid 1996 panel - Serum or Plasma Lipid 1996 panel - Serum or Plasma Natriuretic peptide. B prohormone N-Terminal [Mass/volume] in Serum or Plasma Patient Education [facility] Work Phone: Patient referral [facility] Work Phone: Thyroid stimulating hormone measurement [facility] Work Phone: [facility] Immunizations Immunization Date Immunization Notes Care Provider Angelo charltonsanket 07-22-2024 Seasonal trivalent influenza vaccine, adjuvanted, preservative free Dr. Yuko Lofton MD Work Phone: 07-22-2024 influenza virus vacc ine, unspecified formulation Natacha Lor [employer] Work Phone: [facility] Work Phone: 08-11-2023 influenza, injectabl e, quadrivalent, preservative free Dr. Yuko Lofton Work Phone: 08-03-2022 influenza, injectabl e, quadrivalent, preservative free Dr. Yuko Lofton Work Phone: 08-03-2022 influenza, seasonal, injectable Dr. Yuko Lofton Work Phone: 08-30-2021 Covid (Pfizer) Dr. Yuko Lofton MD Work Phone: 07-13-2021 Influenza High-Dose Quadrivalent Dr. Yuko Lofton MD Work Phone: 01-12-2021 Covid (Pfizer) Dr. Cole huynh Work Phone: 12-22-2020 Covid (Pfizer) Dr. Cole huynh Work Phone: 08-16-[address] Cole Ochoa Work Phone: 07-13-2020 Influenza High-Dose Quadrivalent Dr. Yuko Lofton MD Work Phone: 08-21-2019 influenza, high dose seasonal, preservative-free Dr. Yuko Lofton MD Work Phone: 07-16-[address] Cole Ochoa Work Phone: 07-16-2018 influenza, high dose seasonal, preservative-free Dr. Yuko Lofton MD Work Phone: 06-27-2017 influenza, high dose seasonal, preservative-free Dr. Yuko Lofton MD Work Phone: 07-19-2016 influenza, high dose seasonal, preservative-free Dr. Yuko Lofton MD Work Phone: 01-22-2016 pneumococcal polysaccharide vaccine, [address] Yuko Lofton MD Work Phone: 09-12-2015 influenza, injectabl e, quadrivalent, preservative free Dr. Yuko Lofton MD Work Phone: 06-17-2011 pneumococcal polysaccharide vaccine, [address] Yuko Lofton MD Work Phone: Payers Date Payer Category Payer Self-pay [id number] 2023 Medicare (Managed Care) RYAN ORO [facility] [id number] 2020 Medicare [id number]. [id number] 2017 Medicaid [id number] 2017 Medicare [id number] 1945 Unknown [id number] 2.16.840.1.712079.3.579.2. 902 1945 Unknown [id number] 2.16.840.1.381848.3.579.2. 903 1945 Unknown [id number] 2.16.840.1.603867.3.579.2. 1242 1945 Unknown [id number] 2.16.840.1.938124.3.579.2. 1242 1945 Unknown [id number] 2.16.840.1.150869.3.579.2. 1242 1945 Unknown [id number] 2.16.840.1.168117.3.579.2. 1242 1945 Unknown [id number] 2.16.840.1.492092.3.579.2. 1242 1945 Unknown [id number] 2.16.840.1.040612.3.579.2. 1242 1945 Unknown [id number] 2.16.840.1.417439.3.579.2. 1242 1945 Unknown [id number] 2.16.840.1.407568.3.579.2. 1242 1945 Unknown [id number] 2.16.840.1.178539.3.579.2. 1242 1945 Unknown [id number] 2.16.840.1.454311.3.579.2. 1243 Medicare [id number] Unknown Unknown [id number] 2.16.840.1.143150.3.579.2. 462 Unknown [id number] 2.16.840.1.238992.3.579.2. 462 Unknown [id number] 2.16.840.1.179067.3.579.2. 462 Unknown [id number] 2.16.840.1.656707.3.579.2. 462 Unknown [id number] 2.16.840.1.518402.3.579.2. 462 Unknown [id number] 2.16.840.1.839065.3.579.2. 462 Unknown [id number] 2.16.840.1.247779.3.579.2. 462 Unknown [id number] 2.16.840.1.812687.3.579.2. 462 Unknown [id number] 2.16840.1.201625.3.579.2. 462 Unknown [id number] 2.16840.1.681274.3.579.2. 462 Unknown [id number] 2.16840.1.162326.3.579.2. 462 Unknown [id number] 2.16.840.1.125496.3.579.2. 462 Unknown [id number] 2.16840.1.305901.3.579.2. 462 Unknown [id number] 2.840.1.860013.3.579.2. 462 Unknown [id number] 2.16840.1.379427.3.579.2. 462 Unknown [id number] 2.840.1.288415.3.579.2. 462 Social History Date Type Detail Facility Start: 12-28-2021 End: 01-29-2024 Tobacco smoking status PRIS Unknown if ever smoked Start: 01-02-2020 None Start: 01-02-2020 Spouse/ Significant Other Start: 01-02-2020 Non-smoker Start: 1945 Sex Assigned At Female Start: 09-25-2023 Tobacco smoking status NHIS Never smoked tobacco [facility] Start: 09-25-2023 End: 10-25-2024 Tobacco use and exposure Smokeless tobacco non-user [facility] Start: 09-26-2023 Alcohol intake Current drinker of alcohol (finding) [facility] Start: 09-26-2023 End: 05-12-2025 History of Social function [facility] Start: 09-26-2023 End: 05-12-2025 Tobacco use panel [facility] Start: 1945 Sex Assigned At Not on file [facility] Start: 07-24-2024 End: 10-25-2024 Tobacco smoking status NHIS Ex-smoker [facility] Work Phone: History of tobacco use Current smoker [facility] Work Phone: History of tobacco use [facility] Work Phone: Start: 07-24-2024 End: 10-25-2024 Alcoholic beverage intake Ex-drinker (finding) [facility] Work Phone: Start: 07-14-2024 End: 11-14-2024 Exposure to SARS-CoV-2 (event) Not sure [facility] Start: 10-03-2024 Gender identity Identifies as female gender (finding) [facility] Work Phone: Start: 10-03-2024 Sexual orientation Heterosexual (finding) [facility] Work Phone: Start: 01-14-2025 End: 02-05-2025 Sex Female (finding) Start: 02-29-2024 Sex Female [facility] Goals Date Patient Goal Desired Activity /State Functional Status Date Assessment Result Facility 05-12-2025 Functional status 150/74 025 1:33 PM EDT Phoebe Gibbons, DEVAN 150/74 [facility] Work Phone: 07-28-2025 Vital signs 76 05/12/2025 1: 33 PM EDT Phoebe Gibbons, DEVAN [facility] Work Phone: 05-12-2025 Patient Health Quest ionnaire 2 item (PHQ-2) [Reported] [facility] Work Phone: 05-12-2025 Sabine - suicide s everity rating scale screener - recent [C-SSRS] [facility] Work Phone: 11-14-2024 Patient Health Quest ionnaire 2 item (PHQ-2) [Reported] [facility] Work Phone: 10-25-2024 Sabine - suicide s everity rating scale screener - recent [C-SSRS] [facility] Work Phone: 10-25-2024 Functional status [facility] 10-25-2024 [facility] Work Phone: [facility] Work Phone: Mental Status Date Assessment Result Facility 10-25-2024 Cognitive function finding Negat jermain 10/25/2024 1:32 PM Luiza Reynoso RN Negative [facility] Work Phone: 06-19-2022 Cognitive function Voice/Name [facility] Work Phone: 02-23-2022 Cognitive function Voice/Name [facility] Work Phone: Clinical Notes 04-12-2023 to 05-12-2025 Natacha Horowitz, DMITRY-JOHANNE - 05/12/2025 2:00 PM EDT Note Date & Type Note Facility 05-12-2025 History of Present illness Narrative Subjective Patient ID: Dahlia Silverman is a 80 y.o. female who presents for Pain ( A COUPLE OF WEEKS AGO SHE WAS HAVING LEFT ARM AND SHOULDER PAIN FOR 3 DAYS, AN ACHING PAIN , SHE CANNOT REMEMBER WHAT ACTIVITY BROUGHT ON THE PAIN, SHE USED SALON PAS, TYLENOL, ).REST FROM ACTIVITY, THEN THE PAIN WENT AWAY AND SHE HASN'T HAD ANY SINCE, DULL SORE FEELING TO THE LEFT SHOULDER, PAIN SCORE 3/10, TATIANA=36%, COMM=12, ETOH NO Phoebe Gibbons, [employer] 05/12/25 1:36 PM The patient is an 80-year-old female who presents today for a follow-up appointment. She says a couple weeks ago she was having left arm and shoulder pain, which was when she scheduled the appointment. She cannot remember what she was doing to start with the pain, but Salonpas and Tylenol have helped with the pain, and she says the pain went away after a couple of days. She was unsure if she should still keep this appointment or if she should cancel it. She is currently having 3/10 pain, which she says is manageable with conservative measures at this time. Her right hip is still feeling very good, and she does not think she needs any injections at this time. Review of Systems Constitutional: Negative. HENT: Negative. Eyes: Negative. Respiratory: Negative for cough, shortness of breath and wheezing. Cardiovascular: Negative for chest pain, palpitations and leg swelling. Endocrine: Negative. Genitourinary: Negative. Musculoskeletal: Positive for back pain and myalgias. Negative for arthralgias. Skin: Negative. Allergic/Immunologic: Negative. Neurological: Negative for facial asymmetry, weakness and light-headedness. Hematological: Negative for adenopathy. Does not bruise/bleed easily. Psychiatric/Behavioral: Negative for dysphoric mood and suicidal ideas. Objective Physical Exam Constitutional: General: She is not in acute distress. Appearance: Normal appearance. HENT: Head: Normocephalic. Mouth/Throat: Mouth: Mucous membranes are moist. Eyes: Extraocular Movements: Extraocular movements intact. Cardiovascular: Rate and Rhythm: Normal rate and regular rhythm. Pulses: Normal pulses. Heart sounds: Normal heart sounds. No murmur heard. No friction rub. No gallop. Pulmonary: Effort: Pulmonary effort is normal. Breath sounds: Normal breath sounds. No wheezing, rhonchi or rales. Abdominal: General: Abdomen is flat. Palpations: Abdomen is soft. Musculoskeletal: Cervical back: Normal range of motion. Right lower leg: No edema. Left lower leg: No edema. Comments: Ambulates without assistance Strength 5/5 BLE Lymphadenopathy: Cervical: No cervical adenopathy. Skin: General: Skin is warm and dry. Neurological: General: No focal deficit present. Mental Status: She is alert and oriented to person, place, and time. Mental status is at baseline. Psychiatric: Mood and Affect: Mood normal. Behavior: Behavior normal. Assessment/Plan Diagnoses and all orders for this visit: Chronic left shoulder pain Right hip pain Sacroiliitis The patient is an 80-year-old female with a past medical history significant for the above-mentioned problems. The shoulder pain she was having a couple weeks ago when she scheduled this appointment has resolved. She does not have any questions or concerns about her pain at this time. Conservative measures help when she does have pain flareups. She would like to follow-up with us on an as needed basis, call the clinic if needed. documented in this encounter [facility] Work Phone: 03-04-2025 Evaluation note Diagnosis Onset Date Resolution CHRISTINE (dyspnea on exertion) acute March 04, 2025 1:06pm Fatigue acute March 04, 2025 1:06pm Essential hypertension chronic Ma y 2024 1:06pm History of coronary artery stent placement chronic March 04, 2025 1:06pm HLD (hyperlipidemia) chronic March 04, 2025 1:06pm Ischemic cardiomyopathy chronic M ay 2024 1:06pm COPD (chronic obstructive pulmonary disease) chronic March 24, 2025 9:50am Essential hypertension chronic Ju 2024 9:50am GERD (gastroesophageal reflux disease) chronic March 24, 2025 9:50am HLD (hyperlipidemia) chronic March 24, 2025 9:50am Overweight (BMI 25.0-29.9) acute April 30, 2025 4:28pm Essential hypertension chronic Ju ly 2024 4:28pm GERD (gastroesophageal reflux disease) chronic April 30, 2025 4:28pm DEEPAK (obstructive sleep apnea) chronic April 30, 2025 4:28pm [facility] Work Phone: [phone] Radiology Diagnostic study note [facility] Imaging Services [address] [place] [address] Abdomen/Pelvis without Cont MR#: [id number] Acct: [id number] Name: DAHLIA SILVERMAN Rep #: [id number] : 1945 F 80 From: Darlyn Herrera MD PCP: Dr. Yuko Lofton MD Status: R EG CLI Study:Abdomen/Pelvis without Cont Date of Exa m: 01/31/25 Exam# [id number] Ordering Dr: Negro Thompson PROCEDURE: ABDOMEN/PELVIS WITHOUT CONT 01/31/2025 REASON FOR EXAM: PAIN TECHNIQUE: Abdomen and pelvis CT without intravenous contrast. Noncontrast technique limits evaluation of the abdominal and pelvic viscera. Coronal and Sagittal reconstruction series were provided. One or more dose reduction techniques were used (e.g., Automated exposure control, adjustment of the mA and/or kV according to patient size, use of iterative reconstruction technique). PATIENT PREPARATION: Per protocol ORAL CONTRAST TYPE: None. AMOUNT: mL COMPARISON: None. RADIATION DOSE SUMMARY: CTDlvol: 9.32 mGy DLP: 475.03 mGycm One or more dose reduction techniques were used (e.g., Automated exposure control, adjustment of the mA and/or kV according to patient size, use of iterative reconstruction technique). FINDINGS: Note that evaluation of the abdominopelvic viscera, vasculature, and remaining soft tissues is limited in the absence of IV contrast. Lung bases: Coronary atherosclerosis and/or stents. Likely remote infarct involving the LV apex. Mitral annular calcification. Atelectasis/scarring.. Liver: Unremarkable. Spleen: Unremarkable. Gallbladder: Cholecystectomy. Mild prominence of the CBD to 9 mm which may be related to post cholecystectomy effect. Pancreas: Unremarkable. Adrenals: Unremarkable. Kidneys: Unremarkable. Bowel: Prominent periampullary duodenal diverticulum. Diverticulosis. Intramural fat deposition within the hernandez of the colon at some levels is a nonspecific finding which can be seen in the setting of obesity or chronic inflammation.. Question trace stranding in the posterior perianal region. Normal caliber appendix. Lymph nodes: Unremarkable. Vasculature: Moderate to advanced atherosclerosis. Circumaortic LEFT renal vein, normal variant.. Peritoneum: Unremarkable. Bladder: Underdistended and suboptimally evaluated, grossly unremarkable. Reproductive Organs: Hysterectomy. Body Wall: Tiny fat containing umbilical hernia. Bones: Demineralization. Trace lumbar levoscoliosis may be positional.. CT/Abdomen/Pelvis without Cont IMPRESSION: 1. Question trace stranding versus scarring in the posterior perianal region. Correlate for clinical evidence of a focal infectious/inflammatory process. 2. Cholecystectomy with mild prominence of the CBD which may be related to post cholecystectomy effect. Correlate with serum bilirubin. 3. If concern or unexplained symptoms persist, consider a follow-up exam with IVcontrast. 4. Additional description as above. Reading Location: [id number] CC: Dr. Yuko Lofton MD; LINDA Lockhart ~ Supervisor Brine: Signed 03-21-2025 Evaluation note* Diagnosis Onset Date Resolution Status Admit Date UTI (urinary tract infection) acute January 03, 2025 2:05pm CHRISTINE (dyspnea on exertion) acute March 04, 2025 1:06pm Fatigue acute March 04, 2025 1:06pm Essential hypertension chronic Ma y 2024 1:06pm History of coronary artery s tent placement chronic March 04, 2025 1 :06pm HLD (hyperlipidemia) chronic March 04, 2025 1:06pm Ischemic cardiomyopathy chronic M ay 2024 1:06pm COPD (chronic obstructive pulmonary disease) chronic March 24 9:50am Essential hypertension chronic Ju ne 2024 9:50am GERD (gastroesophageal reflu x disease) chronic March 24, 2025 9 :50am HLD (hyperlipidemia) chronic March 24, 2025 9:50am [facility] [employer] Work Phone: 1(649) 401-210002-12-2025 Evaluation note* Diagnosis Onset Date Resolution Status Admit Date COPD (chronic obstructive pulmonary disease) chronic November 1:29pm Essential hypertension chronic Fe bruary 2024 1:29pm HLD (hyperlipidemia) chronic Febr uary 2024 1:29pm Insomnia chronic November 27, 2024 1:29pm Influenza A inactive November 12:46pm UTI (urinary tract infection) acute January 03, 2025 2:05pm Work Phone: 1(786) 794-575602-12-2025 Evaluation note* Diagnosis Onset Date Resolution Status Admit Date COPD (chronic obstructive pulmonary disease) chronic November 1:29pm Essential hypertension chronic Fe 2024 1:29pm HLD (hyperlipidemia) chronic 2024 1:29pm Insomnia chronic November 27, 2024 1:29pm Influenza A inactive November 12:46pm UTI (urinary tract infection) acute January 03, 2025 2:05pm CHRISTINE (dyspnea on exertion) acute March 04, 2025 1:06pm Essential hypertension chronic Ma y 2024 1:06pm History of coronary artery stent placement chronic March 04, 2025 1 :06pm HLD (hyperlipidemia) chronic March 04, 2025 1:06pm Ischemic cardiomyopathy chronic M ay 2024 1:06pm [facility] Work Phone: 1([phone]) 415-354902-12-2025 Evaluation note* Diagnosis Onset Date Resolution Status Admit Date COPD (chronic obstructive pulmonary disease) chronic November 1:29pm Essential hypertension chronic Fe 2024 1:29pm HLD (hyperlipidemia) chronic 2024 1:29pm Insomnia chronic November 27, 2024 1:29pm Influenza A inactive November 12:46pm UTI (urinary tract infection) acute January 03, 2025 2:05pm CHRISTINE (dyspnea on exertion) acute March 04, 2025 1:06pm Fatigue acute March 04, 2025 1:06pm Essential hypertension chronic Ma y 2024 1:06pm History of coronary artery stent placement chronic March 04, 2025 1 :06pm HLD (hyperlipidemia) chronic March 04, 2025 1:06pm Ischemic cardiomyopathy chronic M ay 2024 1:06pm Work Phone: 1([phone]) 348-744401-10-2025 History of Present illness Narrative* Ivory Carlos PA-C - 11/14/2024 1:45 PM EST Subjective Patient ID: Dahlia Silverman is a 79 y.o. female who presents for Follow-up (FOLLOW UP RIGHT HIP INJECTION DONE ON 10/25/24 PATIENT STATES SHE HAS GOTTEN RELIEF SINCE THE PROCEDURE, SHE NOTES SHE HAD TOSIT IN THE CAR FOR 3 HOURS AFTER HER PROCEDURE AND FEELS SHE DIDN'T GET MOVING ENOUGH TO CIRCULATE THE MEDICATION, ). SHE NOTES HER RIGHT LEG IS ACHE AND SHE CANNOT SLEEP ON THE RIGHT SIDE, SHE NOTICES THE DISCOMFORT MORE AFTER SHE HAS BEEN ACTIVE ALL DAY, SHE TAKES TYLENOL FOR RELIEF, LIDOCAINE PATCHES FOR RELIEF, PAIN SCORE 4/10, DEP NO, FALLS NO, SMOKING NO, TATIANA=22%, COMM=2 Phoebe Gibbons, [facility] 11/14/24 1:19 PM Patient is a 79-year-old female. She presents today for follow-up after undergoing a right sided intra-articular hip injection. This was done on 10/25/2024 and at this time has given her 70% relief. She states that her groin pain is much better. She has some right lateral hip pain that is present. It is there when she tries to lay on the right side. She rates it a 4/10. She states that overall, itis tolerable though. For some left shoulder pain she previously took oral steroids with improvement at this time, left shoulder pain is resolved. Historically, she did some physical therapy home exercise. This did not help. NSAIDs do not help. She takes Aleve sparingly even though she should not because of other blood thinner use. She feels that right now, things are not perfect but they are overall improved. Review of Systems Constitutional: Negative. HENT: Negative. Eyes: Negative. Respiratory: Negative. Cardiovascular: Negative. Gastrointestinal: Negative. Endocrine: Negative. Genitourinary: Negative. Musculoskeletal: Positive for arthralgias and myalgias. Skin: Negative. Allergic/Immunologic: Negative. Neurological: Negative for weakness and numbness. Hematological: Negative. Psychiatric/Behavioral: [...] Normal range of motion. Comments: 5/5 strength Skin: General: Skin is warm and dry. Neurological: General: No focal deficit present. Mental Status: She is alert and oriented to person, place, and time. Mental status is at baseline. Psychiatric: Mood and Affect: Mood normal. Behavior: Behavior normal. Thought Content: Thought content normal. Judgment: Judgment normal. Assessment/Plan Diagnoses and all orders for this visit: Arthritis of right hip Right hip pain Chronic left shoulder pain Trochanteric bursitis of right hip Patient is a 79-year-old female following up today after undergoing a right sided intra-articular hip injection that has given her 70% relief. Previous shoulder pain was resolved with oral steroids. She has some pain in her right lateral hip suspicious for trochanteric bursitis. We discussed a trochanteric bursa injection. Patient declines at this time. We discussed other potential options and injection options at this time, she feels that things are going well. She is comfortable and happy. She does not have any issues or concerns that she feels requires any attention at this time. She is tofollow-up with her services as needed per her request. She will call us in the interim should she require anything from our services. [facility] Phone: 1([phone]) 539-980701-10-2025 Note* Perioperative Nursing Note - Luiza Gross RN - 10/25/2024 1:52 PM EST Discharge instructions reviewed by Nicol Patterson RN no questions and verbalized understanding. discharged amb steady gait, to exit to be driven home by bon well [facility] Work Phone: 1([phone]) 751-713601-10-2025 Nurse Surgical operation note* Perioperative Nursing Note - Luiza Gross RN - 10/25/2024 1:52 PM EST Discharge instructions reviewed by Nicol Patterson RN no questions and verbalized understanding. discharged amb steady gait, to exit to be driven home by bon well [facility] Work Phone: 1([phone]) 240-855101-10-2025 Miscellaneous Notes* Perioperative Nursing Note - Luiza Gross RN - 10/25/2024 1:52 PM EST Discharge instructions reviewed by Nicol Patterson RN no questions and verbalized understanding. discharged amb steady gait, to exit to be driven home by bon well documented in this [facility] Work Phone: 1([phone]) 447-277801-10-2025 Attending History and physical note* Shelley Ramirez DO - 10/25/2024 1:45 PM EST H&P reviewed. The patient was examined and there are no changes to the H&P. Source Note - Ivory Carlos PA-C - 10/03/2024 9:30 AM EST Subjective Patient ID: Dahlia Silverman is a 79 y.o. female who presents for Follow-up (FUV for Lt shoulder injection, she reports the medrol pack helped her pain and her shoulder is no longer hurting. Today she reports having Rt side hip pain that goes into her rt groin area 04/24, describes as aching and is increased with standing a lot. She is taking Tylenol, Aleve sparingly as she is on a blood thinner, she does not do her HEP as it increased her pain. ) TATIANA score 38%. Luiza Gross RN 10/03/24 9:14 AM Patient is a 79-year-old female. She presents today for follow-up afte taking oral steroids for herleft shoulder pain. They wanted to do this while awaiting authorization for left shoulder injectionbecause she was in so much pain. The oral steroids have helped her. Her left shoulder pain is improved. She is having some right sided hip pain once again. She has a history of right hip injection. She states that this was done more than 3 months ago and gave her significant relief for over 3 months. She was pleased with the relief she got from this andshe wonders about having another 1 as at this time, this is the pain that is affecting her ambulatory status. This is affecting her quality life. This affecting her activities. She rates the right hip pain a 7/10 on the visual analog scale. She did some physical therapy home exercise. This did not help. NSAIDs do not help. She takes Alevesparingly even though she should not because of other blood thinner use. This pain is affecting herambulatory status. Is affecting her ability to go up and on the stairs and put on her shoes and socks. She is makes modifications to be able to do these things but the pain is bothersome. It is a stabbing type discomfort. Review of Systems Constitutional: Negative. HENT: Negative. [...] Cervical back: Normal range of motion. Comments: Slightly diminished range of motion with right hip internal rotation and some slight pain. Otherwise 5/5 lower extremity strength Skin: General: Skin is warm and dry. Neurological: General: No focal deficit present. Mental Status: She is alert and oriented to person, place, and time. Mental status is at baseline. Psychiatric: Mood and Affect: Mood normal. Behavior: Behavior normal. Thought Content: Thought content normal. Judgment: Judgment normal. Assessment/Plan Diagnoses and all orders for this visit: Arthritis of right hip - XR pelvis 1-2 views; Future - Joint Injection/Aspiration; Future - FL pain management; Future Right hip pain - XR pelvis 1-2 views; Future - Joint Injection/Aspiration; Future - FL pain management; Future Other orders - NPO Diet Except: Sips with meds; Effective now; Standing - Height and weight; Standing - Insert and maintain peripheral IV; Standing - Saline lock IV; Standing - Type And Screen; Standing - Inpatient consult to Respiratory Care; Standing - Adult diet Regular; Standing - Vital Signs; Standing - Notify physician - Standard Parameters; Standing - Continue IV fluids ordered pre-procedure; Standing - Prior to Discharge O2 Weaning; Standing - Pulse oximetry, continuous; Standing - Discharge patient; Standing - iohexol (OMNIPaque) 300 mg iodine/mL solution 3 mL - lidocaine PF (Xylocaine) 20 mg/mL (2 %) injection 120 mg - bupivacaine PF 0.25 % (Marcaine) 0.25 % (2.5 mg/mL) injection 12.5 mg - methylPREDNISolone acetate (DEPO-Medrol) injection 60 mg Patient is a 79-year-old female with the above-mentioned medical diagnoses following up today aftertaking some oral steroids for her shoulder pain that has given her significant relief. She states that her shoulder pain is overall very well-controlled. Today, she is once again having hip pain. Sheis a history of hip injection with significant relief. This was done well over 3 months ago and it gave her well over 80% relief for 3 months. At this time, I recommended obtaining updated pelvis x-ray to assess her anatomy and I recommended repeating a right sided intra-articular hip injection to be done in the OR under fluoroscopy for both diagnostic and therapeutic purposes. Procedure was discu ssed. Risks and benefits were discussed. Patient is agreeable. She will follow- up 2 weeks after theinjection for reevaluation. Call clinic sooner if necessary. [facility] Work Phone: [phone] 128-704001-10-2025 History and physical note* Shelley Ramirez DO - 10/25/2024 1:45 PM EST H&P reviewed. The patient was examined and there are no changes to the H&P. Source Note - Ivory Carlos PA-C - 10/03/2024 9:30 AM EST Subjective Patient ID: Dahlia Silverman is a 79 y.o. female who presents for Follow-up (FUV for Lt shoulder injection, she reports the medrol pack helped her pain and her shoulder is no longer hurting. Today she reports having Rt side hip pain that goes into her rt groin area 7/10, describes as aching and is increased with standing a lot. She is taking Tylenol, Aleve sparingly as she is on a blood thinner, she does not do her HEP as it increased her pain. ) TATIANA score 38%. Luiza Gross RN 10/03/24 9:14 AM Patient is a 79-year-old female. She presents today for follow-up afte taking oral steroids for herleft shoulder pain. They wanted to do this while awaiting authorization for left shoulder injectionbecause she was in so much pain. The oral steroids have helped her. Her left shoulder pain is improved. She is having some right sided hip pain once again. She has a history of right hip injection. She states that this was done more than 3 months ago and gave her significant relief for over 3 months. She was pleased with the relief she got from this andshe wonders about having another 1 as at this time, this is the pain that is affecting her ambulatory status. This is affecting her quality life. This affecting her activities. She rates the right hip pain a 7/10 on the visual analog scale. She did some physical therapy home exercise. This did not help. NSAIDs do not help. She takes Alevesparingly even though she should not because of other blood thinner use. This pain is affecting herambulatory status. Is affecting her ability to go up and on the stairs and put on her shoes and socks. She is makes modifications to be able to do these things but the pain is bothersome. It is a stabbing type discomfort. Review of Systems Constitutional: Negative. HENT: Negative. [...] Cervical back: Normal range of motion. Comments: Slightly diminished range of motion with right hip internal rotation and some slight pain. Otherwise 5/5 lower extremity strength Skin: General: Skin is warm and dry. Neurological: General: No focal deficit present. Mental Status: She is alert and oriented to person, place, and time. Mental status is at baseline. Psychiatric: Mood and Affect: Mood normal. Behavior: Behavior normal. Thought Content: Thought content normal. Judgment: Judgment normal. Assessment/Plan Diagnoses and all orders for this visit: Arthritis of right hip - XR pelvis 1-2 views; Future - Joint Injection/Aspiration; Future - FL pain management; Future Right hip pain - XR pelvis 1-2 views; Future - Joint Injection/Aspiration; Future - FL pain management; Future Other orders - NPO Diet Except: Sips with meds; Effective now; Standing - Height and weight; Standing - Insert and maintain peripheral IV; Standing - Saline lock IV; Standing - Type And Screen; Standing - Inpatient consult to Respiratory Care; Standing - Adult diet Regular; Standing - Vital Signs; Standing - Notify physician - Standard Parameters; Standing - Continue IV fluids ordered pre-procedure; Standing - Prior to Discharge O2 Weaning; Standing - Pulse oximetry, continuous; Standing - Discharge patient; Standing - iohexol (OMNIPaque) 300 mg iodine/mL solution 3 mL - lidocaine PF (Xylocaine) 20 mg/mL (2 %) injection 120 mg - bupivacaine PF 0.25 % (Marcaine) 0.25 % (2.5 mg/mL) injection 12.5 mg - methylPREDNISolone acetate (DEPO-Medrol) injection 60 mg Patient is a 79-year-old female with the above-mentioned medical diagnoses following up today aftertaking some oral steroids for her shoulder pain that has given her significant relief. She states that her shoulder pain is overall very well-controlled. Today, she is once again having hip pain. Sheis a history of hip injection with significant relief. This was done well over 3 months ago and it gave her well over 80% relief for 3 months. At this time, I recommended obtaining updated pelvis x-ray to assess her anatomy and I recommended repeating a right sided intra-articular hip injection to be done in the OR under fluoroscopy for both diagnostic and therapeutic purposes. Procedure was discu ssed. Risks and benefits were discussed. Patient is agreeable. She will follow- up 2 weeks after theinjection for reevaluation. Call clinic sooner if necessary. documented in this [facility] Work Phone: [phone] NoteTable formatting from the original result was not included. Procedure Joint Aspiration/Injection Indication Right hip pain, Arthritis of right hip Medications iohexol (OMNIPaque) 300 mg iodine/mL solution 3 mL 3 mL lidocaine PF (Xylocaine) 20 mg/mL (2 %) injection 120 mg 10 mL methylPREDNISolone acetate (DEPO-Medrol) injection 60 mg (Totals for administrations occurring from 1323 to 1331 on 10/25/24) Preprocedure A history and physical has been performed, and patient medication allergies have been reviewed. The patient's tolerance of previous anesthesia has been reviewed. The risks and benefits of the procedure and the sedation options and risks were discussed with the patient. All questions were answered and informed consent obtained. Details of the Procedure Procedure: Right hip intra-articular corticosteroid injection under fluoroscopic guidance Anesthesia: Local Complications: None After informed consent was obtained, the patient was brought to the procedure room and placed in the lateral decubitus (procedure side up) position. The hip area was prepped and draped in the usual sterile fashion. Using fluoroscopic guidance, the skin and subcutaneous tissues overlying needle trajectory hip joint was anesthetized with 2.0% lidocaine. The 23-gauge spinal needle was then introduced into the joint Injection of contrast under fluoroscopy revealed appropriate intraarticular spread. Thereafter, 5 mL of 0.5% bupivacaine and 60 mg of methylprednisolone were injected. The needle was removed. The patient tolerated the procedure well. Patient was then transferred to the recovery room in stable condition. Procedure Provider Shelley Ramirez DO Procedure Location [facility] [place] [address] [place] [id number] Referring Provider Ivory Carlos PA-C [address] [place] [address] [place], [place] [id number] [place] [address] Work Phone: [phone] NoteTable formatting from the original result was not included. Procedure Joint Aspiration/Injection Indication Right hip pain, Arthritis of right hip Medications iohexol (OMNIPaque) 300 mg iodine/mL solution 3 mL 3 mL lidocaine PF (Xylocaine) 20 mg/mL (2 %) injection 120 mg 10 mL methylPREDNISolone acetate (DEPO-Medrol) injection 60 mg (Totals for administrations occurring from 1323 to 1331 on 10/25/24) Preprocedure A history and physical has been performed, and patient medication allergies have been reviewed. The patient's tolerance of previous anesthesia has been reviewed. The risks and benefits of the procedure and the sedation options and risks were discussed with the patient. All questions were answered and informed consent obtained. Details of the Procedure Procedure: Right hip intra-articular corticosteroid injection under fluoroscopic guidance Anesthesia: Local Complications: None After informed consent was obtained, the patient was brought to the procedure room and placed in the lateral decubitus (procedure side up) position. The hip area was prepped and draped in the usual sterile fashion. Using fluoroscopic guidance, the skin and subcutaneous tissues overlying needle trajectory hip joint was anesthetized with 2.0% lidocaine. The 23-gauge spinal needle was then introduced into the joint Injection of contrast under fluoroscopy revealed appropriate intraarticular spread. Thereafter, 5 mL of 0.5% bupivacaine and 60 mg of methylprednisolone were injected. The needle was removed. The patient tolerated the procedure well. Patient was then transferred to the recovery room in stable condition. Procedure Provider Shelley Ramirez DO Procedure Location [facility] [place] [address] [place], [place] [id number] Referring Provider Ivory Carlos PA-C [address] [place], [address] Work Phone: [phone] History of Present illness Narrative* Ivory Carlos PA-C - 10/03/2024 9:30 AM EST Subjective Patient ID: Dahlia Silverman is a 79 y.o. female who presents for Follow-up (FUV for Lt shoulder injection, she reports the medrol pack helped her pain and her shoulder is no longer hurting. Today she reports having Rt side hip pain that goes into her rt groin area 7/10, describes as aching and is increased with standing a lot. She is taking Tylenol, Aleve sparingly as she is on a blood thinner, she does not do her HEP as it increased her pain. ) TATIANA score 38%. Luiza Gross RN 10/03/24 9:14 AM Patient is a 79-year-old female. She presents today for follow-up afte taking oral steroids for herleft shoulder pain. They wanted to do this while awaiting authorization for left shoulder injectionbecause she was in so much pain. The oral steroids have helped her. Her left shoulder pain is improved. She is having some right sided hip pain once again. She has a history of right hip injection. She states that this was done more than 3 months ago and gave her significant relief for over 3 months. She was pleased with the relief she got from this andshe wonders about having another 1 as at this time, this is the pain that is affecting her ambulatory status. This is affecting her quality life. This affecting her activities. She rates the right hip pain a 7/10 on the visual analog scale. She did some physical therapy home exercise. This did not help. NSAIDs do not help. She takes Alevesparingly even though she should not because of other blood thinner use. This pain is affecting herambulatory status. Is affecting her ability to go up and on the stairs and put on her shoes and socks. She is makes modifications to be able to do these things but the pain is bothersome. It is a stabbing type discomfort. Review of Systems Constitutional: Negative. HENT: Negative. [...] Cervical back: Normal range of motion. Comments: Slightly diminished range of motion with right hip internal rotation and some slight pain. Otherwise 5/5 lower extremity strength Skin: General: Skin is warm and dry. Neurological: General: No focal deficit present. Mental Status: She is alert and oriented to person, place, and time. Mental status is at baseline. Psychiatric: Mood and Affect: Mood normal. Behavior: Behavior normal. Thought Content: Thought content normal. Judgment: Judgment normal. Assessment/Plan Diagnoses and all orders for this visit: Arthritis of right hip - XR pelvis 1-2 views; Future - Joint Injection/Aspiration; Future - FL pain management; Future Right hip pain - XR pelvis 1-2 views; Future - Joint Injection/Aspiration; Future - FL pain management; Future Other orders - NPO Diet Except: Sips with meds; Effective now; Standing - Height and weight; Standing - Insert and maintain peripheral IV; Standing - Saline lock IV; Standing - Type And Screen; Standing - Inpatient consult to Respiratory Care; Standing - Adult diet Regular; Standing - Vital Signs; Standing - Notify physician - Standard Parameters; Standing - Continue IV fluids ordered pre-procedure; Standing - Prior to Discharge O2 Weaning; Standing - Pulse oximetry, continuous; Standing - Discharge patient; Standing - iohexol (OMNIPaque) 300 mg iodine/mL solution 3 mL - lidocaine PF (Xylocaine) 20 mg/mL (2 %) injection 120 mg - bupivacaine PF 0.25 % (Marcaine) 0.25 % (2.5 mg/mL) injection 12.5 mg - methylPREDNISolone acetate (DEPO-Medrol) injection 60 mg Patient is a 79-year-old female with the above-mentioned medical diagnoses following up today aftertaking some oral steroids for her shoulder pain that has given her significant relief. She states that her shoulder pain is overall very well-controlled. Today, she is once again having hip pain. Sheis a history of hip injection with significant relief. This was done well over 3 months ago and it gave her well over 80% relief for 3 months. At this time, I recommended obtaining updated pelvis x-ray to assess her anatomy and I recommended repeating a right sided intra-articular hip injection to be done in the OR under fluoroscopy for both diagnostic and therapeutic purposes. Procedure was discu ssed. Risks and benefits were discussed. Patient is agreeable. She will follow- up 2 weeks after theinjection for reevaluation. Call clinic sooner if necessary. [facility] Work Phone: [phone] 704-282712-19-2024 Instructions* Patient Instructions* Ginger Keen RN - 10/03/2024 9:30 AM EST Injection education completed written and verbally. documented in this [facility] Work Phone: [phone] 468-213612-10-2024 Evaluation note* Diagnosis Onset Date Resolution Status Admit Date Abdominal wall strain acute Dec emb2023 11:19am COPD (chronic obstructive pulmonary disease) chronic November 1:29pm Essential hypertension chronic Fe bruary 2024 1:29pm HLD (hyperlipidemia) chronic Febr uary 2024 1:29pm Insomnia chronic November 27, 2024 1:29pm Influenza A inactive November 12:46pm UTI (urinary tract infection) acute January 03, 2025 2:05pm Work Phone: [phone] 843-273411-07-2024 History of Present illness Narrative* Ivory Carlos PA-C - 08/22/2024 10:00 AM EST Subjective Patient ID: Dahlia Silverman is a 79 y.o. female who presents for Follow-up (FUV for Xray results andHEP. Today she is not having any pain and is intermittent and mostly at night rates 8/10 when she is having the pain in her neck and radiates in to her lt arm, describes as throbbing. She is taking Tylenol helps, Aleve helps the most but she only takes it sparingly due to taking a blood thinner, HEP from PT do not help and made the pain so she stopped. ) alcohol screen negative. TATIANA score Luiza Gross RN 08/22/24 9:58 AM Patient is a 79-year-old female. She presents today for follow-up after getting x-rays and we were able to get her records from her previous pain management doctor. She had a left shoulder injection on 02/07/2024 that gave her significant relief. 80% for a few months but unfortunate, the pain then returned. At this time, she still has left neck pain with left shoulder pain and left arm pain that goes downto her wrist. She does not have any issues moving her arm with overhead activities or putting on her bra but she does have pain with certain maneuvers including internal rotation. She states that she has been advised that historically she could have a pinched nerve in her neck. She did some physical therapy home exercise. This did not help. NSAIDs do not help. She takes Aleve sparingly even though she should not because of other blood thinner use. She is here today to discuss her options once again. She tried Lyrica but this made her dizzy so she stopped it. At this time, she still has the left shoulder pain that she rates a 8/10. Affects her quality of life. Affects her activities and affects her ability to do things.n Review of Systems Constitutional: Negative. HENT: Negative. Eyes: Negative. Respiratory: Negative. Cardiovascular: Negative. Gastrointestinal: Negative. Endocrine: Negative. Genitourinary: Negative. Musculoskeletal: Positive for arthralgias, myalgias and neck pain. Skin: Negative. Allergic/Immunologic: Negative. Neurological: Positive for [...] back: Normal range of motion. Comments: 5/5 upper extremity strength other than pain with left shoulder internal rotation Skin: General: Skin is warm and dry. Neurological: General: No focal deficit present. Mental Status: She is alert and oriented to person, place, and time. Mental status is at baseline. Psychiatric: Mood and Affect: Mood normal. Behavior: Behavior normal. Thought Content: Thought content normal. Judgment: Judgment normal. XR shoulder left 2+ views Status: Final result PACS Images Show images for XR shoulder left 2+ views Signed by Signed Time Phone Pager Lizbeth Omalley MD 07/26/2024 21:32 [id number] Exam Information Status Exam Begun Exam Ended Final 07/25/2024 11:55 07/25/2024 12:09 Study Result Narrative & Impression Interpreted By: Lizbeth Omalley, STUDY: Left shoulder, five views. INDICATION: Signs/Symptoms:left shoulder and arm pain. COMPARISON: None. ACCESSION NUMBER(S): [id number] ORDERING CLINICIAN: IVORY CARLOS FINDINGS: No acute fracture or malalignment. Mild glenohumeral and acromioclavicular joint degenerative changes with small osteophytes. Soft tissues are unremarkable. IMPRESSION: 1. 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 MACRO: None. Signed by: Lizbeth Omalley 07/26/2024 9:32 PM Dictation workstation: [id number] XR cervical spine 2-3 views Status: Final result PACS Images Show images for XR cervical spine 2-3 views Signed by Signed Time Phone Pager Lizbeth Omalley MD 07/26/2024 21:30 [phone] Exam Information Status Exam Begun Exam Ended Final 07/25/2024 11:56 07/25/2024 12:08 Study Result Narrative & Impression Interpreted By: Lizbeth Omalley, STUDY: Cervical spine, 3 views. INDICATION: Signs/Symptoms:left shoulder and arm pain. COMPARISON: None. ACCESSION NUMBER(S): [id number] ORDERING CLINICIAN: IVORY CARLOS FINDINGS: There is mild levoscoliosis centered in [...] Lizbeth Omalley 07/26/2024 9:30 PM Dictation workstation: [id number] Assessment/Plan Diagnoses and all orders for this visit: Arthritis of left shoulder region Chronic left shoulder pain - methylPREDNISolone (Medrol Dospak) 4 mg tablets; Follow schedule on package instructions Cervical neuritis Patient is a 79-year-old female with the above-mentioned medical diagnoses following up today afterwe were able to get some x-rays available to review her previous pain management records. At this time, I would recommend us to get authorization to pursue a left shoulder injection. We will submit this to her insurance to get authorization but in the meantime, her wants her to get some sort of pain relief. We discussed a Medrol Dosepak. How to take it was discussed. Potential side effects were discussed. Patient is going to pursue this. She will follow-up for the shoulder injection andthen a few weeks after. documented in this [facility] Work Phone: 1([phone]) 229-253110-10-2024 History of Present illness Narrative* Ivory Carlos PA-C - 07/25/2024 11:30 AM EDT Subjective Patient ID: Dahlia Silverman is a 79 y.o. female who presents [...] WITH LIFTING HEAVY ITEMS, IMAGING DONE IN [place] AT PAIN MANAGEMENT DR. GILES, NO PHYSICAL THERAPY FOR SHOULDER, NO HOME STRETCHING, LIDOCAINE OTC PATCHES PRN, TYLENOL FOR PAIN, PAIN SCORE 7/10, DEP NO, FALLS NO, SMOKING NO, TATIANA=34%, SOAPP=3 Nicol Nuñez RN 07/25/24 10:50 AM Patient is a 79-year-old female. She presents today with her . She has complaints of left shoulder pain. Patient previously saw Dr. Giles a pain management doctor in [place]. She states thatthey moved so she is no longer going [...] she had a pinched nerve in her ne ck but then states that the shoulder injection helped. She currently rates the discomfort a 7/10. She has not yet pursued any physical therapy or home exercises for this. She has lidocaine patches and Tylenol. Unfortunately does not give her any significant relief. She is not able to use NSAIDs dueto anti- inflammatory use. She was hopeful to get an [...] I would like to get these records. Joan work on obtaining them. She also states [...] well as left shoulder x-rays to further formulatea plan of care. We discussed the possibility [...] records have been obtained. documented in this [facility] Work Phone: 1([phone]) 978-580710-09-2024 History of Present illness Narrative* Shelley Ramirez DO - 07/24/2024 10:30 AM EDT Subjective Patient ID: Dahlia Silverman is a 79 y.o. female who presents [...] WITH LIFTING HEAVY ITEMS, IMAGING DONE IN [place] AT PAIN MANAGEMENT DR. GILES, NO PHYSICAL THERAPY FOR SHOULDER, NO HOME STRETCHING, LIDOCAINE OTC PATCHES PRN, TYLENOL FOR PAIN, PAIN SCORE 7/10, DEP NO, FALLS NO, SMOKING NO, TATIANA=34%, SOAPP=3 HPI Review of Systems Objective Physical Exam Assessment/Plan Phoebe Gibbons CMA 07/24/24 10:29 AM documented in this [facility] Work Phone: 1([phone]) 586-767604-23-2024 Procedure [facility] 09-26-2023 Miscellaneous Notes* Quick Note - Sarah Duran RN - 09/26/2023 12:40 PM EST Discharged per wheelchair to lobby to go home with per private car. * Quick Note - Sarah Duran RN - 09/26/2023 12:20 PM EST Discharge instructions reviewed with patient and , voices understanding. IV discontinued andafter finishing lunch , will get dressed to go home. * Plan of Care - Nory Menon RN - 09/26/2023 12:55 AM EST Problem: Actual or potential alteration in health [...] output within specified parameters Outcome: Partially Met * Mushtaq Mcnally - Nory Menon RN - 09/26/2023 12:50 AM EST Received return call from Dr. Moore. Notified him of patient arrival * Mushtaq Mcnally - Nory Menon RN - 09/26/2023 12:48 AM EST Multiple attempts made to contact admitting physician, no answer * Mushtaq Mcnally - Nory Menon RN - 09/26/2023 12:32 AM EST Patient arrived to unit, ambulated to restroom and bed without difficulty. documented in this [id number] Note* Quick Note - Sarah Duran RN - 09/26/2023 12:40 PM EST Discharged per wheelchair to lobby to go home with per private car. [id number] Note* Quick Note - Sarah Duran RN - 09/26/2023 12:20 PM EST Discharge instructions reviewed with patient and , voices understanding. IV discontinued andafter finishing lunch , will get dressed to go home. [id number] Hospital course Narrative* Yordy Bello MD - 09/26/2023 10:54 AM EST [facility] [place] -- [facility] Dahlia Silverman Admitted: 09/26/2023 Discharge Date: 09/26/23 PCP Handoff Recommended Outpatient Testing Follow-up with brush or broom cutter as outpatient Results Pending At Discharge Clinical Summary Dahlia Silverman is a 78 y.o. female patient of Yuko Lofton MD with history of CAD, HTN, HLD, who presented to [facility] with left lower chest pain. Chest [...] cardiology recommendation. Patient to follow-up with her brush or broom cutter as outpatient. Discharge Medications Discharge Medications Medications [...] pills, not patches . Physician(s) Follow Up: Yuko Lofton MD [address] [facility] [phone] Schedule an appointment as soon as possible for a visit in 1 week(s) Condition at Discharge: Stable Disposition: Home I reviewed discharge recommendations with the patient in person. Patient instructions, including activity, were given to the patient/family at discharge. On day of discharge I saw Dahlia Silverman and spent: > 30 minutes on discharge. Completed by: Yordy Bello on 09/26/23, 10:54 AM documented in this [id number] Consult note* Sabina Steinberg MD - 09/26/2023 10:28 AM ESTAssociated Order(s): IP CONSULT TO CARDIOLOGY General Cardiology Consult [facility] 09/26/2023 Sabina Steinberg MD [place] [address] [facility] [address] Inpatient Cardiovascular Consultation Date of Service: 09/26/2023 Patient: Abdifatah Date of : 1945 Referring Provider: Refer to consult order in electronic medical record PCP: Yuko Lofton MD 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 [...] c/w known CAD Follows with cardiology at [place] on appropriate GDMT Known mild systolic dysfunction, prior 30-35% improved to 40-49% Intolerant of jardiance due to UTI No additional inpatient cardiac assessment needed at this time Clinically euvolemic Can follow up with outpatient brush or broom cutter if outpatient stress warranted Will sign off [...] October 2020 She was seen by her brush or broom cutter 08/11/2023 Home medications to include aspirin 81 [...] without issues. She just had a big [email or web address] alliance party for her family. Imaging: I independently reviewed [...] source Oral, resp. rate 16, height 5' 6, weight 72.8 kg (160 lb 7.9 oz), [...] Results Component Value Date TSH 2.26 09/26/2023 [facility] Work Phone: 1(133) 272-885012-12-2023 Consult note* Sabina tSeinberg MD - 09/26/2023 10:28 AM ESTAssociated Order(s): IP CONSULT TO CARDIOLOGY General Cardiology Consult [facility] 09/26/2023 Sabina Steinberg MD [address] [address] Inpatient Cardiovascular Consultation Date of Service: 09/26/2023 Patient: Abdifatah Date of : 1945 Referring Provider: Refer to consult order in electronic medical record PCP: Yuko Lofton MD Primary Global Expansion Sales Director: [place] [facility] Assessment/Plan: Abdifatah is a 78 y.o. [...] c/w known CAD Follows with cardiology at [place] on appropriate GDMT Known mild systolic dysfunction, prior 30-35% improved to 40-49% Intolerant of jardiance due to UTI No additional inpatient cardiac assessment needed at this time Clinically euvolemic Can follow up with outpatient brush or broom cutter if outpatient stress warranted Will sign off [...] October 2020 She was seen by her brush or broom cutter 08/11/2023 Home medications to include aspirin 81 [...] without issues. She just had a big [email or web address] party for her family. Imaging: I independently reviewed [...] source Oral, resp. rate 16, height 5' 6, weight 72.8 kg (160 lb 7.9 oz), [...] Date TSH 2.26 09/26/2023 documented in this [id number] History and physical note* Roger Moore MD - 09/26/2023 1:06 AM EST [facility] Patient Name: Dahlia Silverman : 1945 MR #: [id number] Admit Date: 09/26/2023 Physicians: Yuko Lofton MD (Family); Roger Puckett (Referring) Dahlia Silverman is a 78 y.o. female patient of Yuko Lofton MD with history of CAD, HTN, HLD, who presented to [facility] with left lower chest pain. Chest [...] hospital or ED yes -- care site [facility] Quality Measures DVT Prophylaxis: lovenox Brady Catheter: absent Medication Reconciliation: Verified Risk variables present on admission: None. Please see assessment and plan for further details. Estimated Date of Discharge less than 2 midnights Code Status Full Code; code status verified on 09/26/2023 with patient (capacity intact) Chief Complaint Chest pain History of Present Illness Dahlia Silverman is a 78 y.o. female patient of Yuko Lofton MD with history of CAD, HTN, HLD, who presented to [facility] with left lower chest pain. Left [...] normal coloration Psych: normal mood and affect [id number] History and physical note* Roger Moore MD - 09/26/2023 1:06 AM EST [facility] Patient Name: Dahlia Silverman : 1945 MR #: [id number] Admit Date: 09/26/2023 Physicians: Yuko Lofton MD (Family); Roger Puckett (Referring) Dahlia Silverman is a 78 y.o. female patient of Yuko Lofton MD with history of CAD, HTN, HLD, who presented to [facility] with left lower chest pain. Chest pain: CAD s/p PCI x 3 stents: HTN: HLD: CXR non-acute EKG non-acute Troponin < 0.05, < 0.05; complete trend CTA pulmonary arteries and abdomen/pelvis w/ contrast Lipase LFTs Pain control ASA, Plavix, statin, Toprol, Norvasc, nitropaste Echo Cardiology consult Residence prior to admission: house or apartment [facility] -- care site [facility] Quality Measures DVT Prophylaxis: lovenox Brady Catheter: absent Medication Reconciliation: Verified Risk variables present on admission: None. Please see assessment and plan for further details. Estimated Date of Discharge less than 2 midnights Code Status Full Code; code status verified on 09/26/2023 with patient (capacity intact) Chief Complaint Chest pain History of Present Illness Dahlia Silverman is a 78 y.o. female patient of Yuko Lofton MD with history of CAD, HTN, HLD, who presented to [facility] with left lower chest pain. Left [...] normal mood and affect documented in this [id number] Note* Plan of Care - Nory Menon RN - 09/26/2023 12:55 AM EST Problem: Actual or potential alteration in health [...] output within specified parameters Outcome: Partially Met [id number] Note* Quick Note - Nory Menon RN - 09/26/2023 12:50 AM EST Received return call from Dr. Moore. Notified him of patient arrival [id number] Note* Quick Note - Nory Menon RN - 09/26/2023 12:48 AM EST Multiple attempts made to contact admitting physician, no answer [id number] Note* Quick Note - Nory Menon RN - 09/26/2023 12:32 AM EST Patient arrived to unit, ambulated to restroom and bed without difficulty. [id number] Discharge summary Author Jami Devlin April 12, 2023 4:23pm Note Date/Time April 14, 2023 1:19 pm Physical Therapy [facility] [address] [place] [address] / REHABILITATION SERVICES DISCHARGE SUMMARY MR#: [id number] Acct: [id number] Name: DAHLIA SILVERMAN Rep #: [id number] : 1945 78 From: Jami Morales Referring Dr.: Dr. Yuko Lofton MD Status : REG RCR Insurance: [employer]URANCE Patient Information Patient Information: DAHLIA SILVERMAN was seen in my office for initial evaluation on 02/15/23. The following Plan of Care was established for this patient: POC Established Initial Frequency: 2x /Week Initial Duration: 6 Weeks Anticipated Interventions Patient/Client Instruction: Educate patient on: Condition and Plan of Care For the Purpose of:: To decrease pain, To decrease swelling/inflammation, To increase ROM, To improve nutrient delivery to tissue, To increase oxygenation perfusion, To improve muscle performance and motor function, To improve ability to perform ADL's, To increase tolerance to activity/condition/position, To improve performance and independence with ADL's, To decrease level of supervision to perform tasks, To improve ability of physical actions for home/community/work/leisure, To improve gait and locomotor functions, To improvehealth of tissue, To decrease soft tissue restriction and To increase flexibility/ROM Therapeutic Exercise to Include: Strength training, Endurance training, Body mechanics, Flexibilty training, Gait and locomotor training, Neuromotor development, Passive ROM, Active ROM and Dynamic Lumbar Stabilization For the Purpose of:: To decrease pain, To increase ROM, To improve nutrient delivery to tissue, To increase oxygenation perfusion, To improve muscle performance and motor function, To improve ability to perform ADL's, To increasetolerance to activity/condition/position, To improve performance and independence with ADL's, To decrease level of supervision to perform tasks, To improve ability of physical actions for home/community/work/leisure, To improve health of tissue, To decrease soft tissue restriction, To increase flexibility/ROM, To improve endurance, To improve balance and To improve safety with gait Functional Training to Include: Gait training For the Purpose of:: To improve gait and locomotor functions Manual Therapy Techniques to Include: Passive ROM and Soft tissue mobilization For the Purpose of:: To decrease pain, To decrease swelling/inflammation, To increase ROM, To improve nutrient delivery to tissue, To improve muscle performance and motor function and To improve ability to perform ADL's Thermo therapy (hot pack): Yes Ultrasound (thermal/non thermal): Yes For the Purpose of:: To decrease pain, To decrease swelling/inflammation, To increase ROM, To increase oxygenation perfusion, To improve muscle performance and motor function and To improve ability to perform ADL's Last Seen Last Seen: This patient was last seen in our office 02/23/23. Pertinent comments regardingtheir Physical therapy will appear below: Pt did not reschedule after her last appointment and will be discharged. At this point I will be discontinuing this patient from physical therapy. I would be happy to see this patient again in the future if found appropriate by the physician. Thank you! Jami Devlin, TARA Balance/Gait/Functional tests Balance/Special Test Scores Lower Extremity Functional Score: 52 <Electronically signed by Jami Devlin MPT> 04/12/23 [id number] CC: Dr. Yuko Lofton MD ~ [place] Signed Work Phone: Evaluation note* Diagnosis Onset Date Resolution Status Essential hypertension chron ic History of coronary artery stent placement chronic HLD (hyperlipidemia) chronic Ischemic cardiomyopathy [facility] Colon cancer screening acute Essential hypertension chron ic History of non-ST elevation myocardial infarction (NSTEMI) January 02, 2020 chronic HLD (hyperlipidemia) chronic Osteoporosis [facility] Work Phone: Evaluation note* Diagnosis Onset Date Resolution Status Essential hypertension chron ic History of coronary artery stent placement chronic HLD (hyperlipidemia) chronic Ischemic cardiomyopathy [facility] Colon cancer screening acute Essential hypertension chron ic History of non-ST elevation myocardial infarction (NSTEMI) January 02, 2020 chronic HLD (hyperlipidemia) chronic Osteoporosis chronic Colon cancer screening acute History of coronary artery stent placement [facility] Work Phone: Evaluation note* Diagnosis Onset Date Resolution Status Essential hypertension chron ic History of coronary artery stent placement chronic HLD (hyperlipidemia) chronic Ischemic cardiomyopathy [facility] Colon cancer screening acute Essential hypertension chron ic History of non-ST elevation myocardial infarction (NSTEMI) January 02, 2020 chronic HLD (hyperlipidemia) chronic Osteoporosis chronic Colon cancer screening acute History of coronary artery stent placement chronic Arthritis chronic Essential hypertension chron ic Work Phone: Evaluation note* Diagnosis Onset Date Resolution Status Colon cancer screening acute History of coronary artery stent placement chronic Arthritis chronic Essential hypertension chron ic Former smoker acute Right flank pain chronic Work Phone: Evaluation note* Diagnosis Onset Date Resolution Status Arthritis chronic Essential hypertension chron ic Former smoker acute Right flank pain chronic Chest pain acute Dyspnea acute Essential hypertension chron ic History of coronary artery stent placement chronic HLD (hyperlipidemia) chronic Ischemic cardiomyopathy [facility] Work Phone: Evaluation note* Diagnosis Onset Date Resolution Status Arthritis chronic Essential hypertension chron ic Former smoker acute Right flank pain chronic Work Phone: Evaluation note* Diagnosis Onset Date Resolution Status Arthritis chronic Essential hypertension chron ic Former smoker acute Right flank pain chronic Chest pain acute Dyspnea acute Essential hypertension chron ic History of coronary artery stent placement chronic HLD (hyperlipidemia) chronic 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 Left cervical radiculopathy acute Left shoulder pain acute Work Phone: Evaluation note* Diagnosis Onset Date Resolution Status Former smoker acute Right flank pain chronic Chest pain acute Dyspnea acute Essential hypertension chron ic History of coronary artery stent placement chronic HLD (hyperlipidemia) chronic 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 Left cervical radiculopathy acute Left shoulder pain acute Flu vaccine need acute Essential hypertension chron ic Hoarseness chronic Fatigue acute Essential hypertension chron ic History of coronary artery stent placement chronic HLD (hyperlipidemia) chronic Ischemic cardiomyopathy [facility] Work Phone: Evaluation note* Diagnosis Onset Date Resolution Status Fatigue acute Essential hypertension chron ic History of coronary artery stent placement chronic HLD (hyperlipidemia) chronic 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 Abdominal pain acute Essential hypertension chron ic Hoarseness chronic Right foot pain chronic Essential hypertension chron ic History of coronary artery stent placement chronic HLD (hyperlipidemia) chronic Ischemic cardiomyopathy [facility] Work Phone: Evaluation note* Diagnosis Onset Date Resolution Status Abdominal pain acute Essential hypertension chron ic Hoarseness chronic Right foot pain chronic Essential hypertension chron ic History of coronary artery stent placement chronic HLD (hyperlipidemia) chronic 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 Recurrent UTI acute Congestive heart failure (CHF) chronic Essential hypertension chron ic Right groin pain chronic Work Phone: Evaluation note* Diagnosis Onset Date Resolution Status Recurrent UTI acute Congestive heart failure (CHF) chronic Essential hypertension chron ic Right groin pain chronic Work Phone: Evaluation note* Diagnosis Onset Date Resolution Status Essential hypertension chron ic History of coronary artery stent placement chronic HLD (hyperlipidemia) chronic 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 Essential hypertension chron ic Osteoarthritis of right hip chronic Recurrent UTI resolved Contact with and (suspected) exposure to other viral communicable diseases acute COVID-19 acute Flu vaccine need acute Essential hypertension chron ic HLD (hyperlipidemia) chronic Insomnia chronic Right ear pain chronic Work Phone: Evaluation note* Diagnosis Chest pain- Primary Unspecified [facility] pain [facility] Diagnosis Onset Date Resolution Status Flu vaccine need acute Essential hypertension chron ic HLD (hyperlipidemia) chronic Insomnia chronic Right ear pain chronic Abdominal pain acute Essential hypertension chron ic Insomnia chronic Osteoporosis chronic Work Phone: Evaluation note* Diagnosis Onset Date Resolution Status Abdominal pain acute Essential hypertension chron ic Insomnia chronic Osteoporosis chronic Abnormal mammogram of right breast acute Cyst of right breast acute Cough acute Swallowing difficulty acute Hoarseness chronic Left cervical radiculopathy chronic Work Phone: Evaluation note* Diagnosis Procedure and treatment not carried out due to patient leaving prior to being seen by health care provider- Primary documented in this encounter [facility] Work Phone: Evaluation note* Diagnosis Cervical neuritis- Primary Brachial neuritis or radiculitis nos Chronic left shoulder pain Pain in joint, shoulder region documented in this encounter [facility] Work Phone: Evaluation note* Diagnosis Cervical neuritis Brachial neuritis or radiculitis nos Chronic left shoulder pain Pain in joint, shoulder region documented in this encounter [facility] Work Phone: Evaluation note* Diagnosis Arthritis of left shoulder region- Primary Chronic left shoulder pain Pain in joint, shoulder region Cervical neuritis Brachial neuritis or radiculitis nos documented in this encounter [facility] Work Phone: Evaluation note* Diagnosis Arthritis of right hip- Primary Right hip pain Pain in joint, pelvic region and thigh documented in this encounter [facility] Work Phone: Evaluation note* Diagnosis Right hip pain Pain in joint, pelvic region and thigh Arthritis of right hip documented in this encounter [facility] Work Phone: Evaluation note* Diagnosis Right hip pain Pain in joint, pelvic region and thigh Arthritis of right hip documented in this encounter [facility] Work Phone: Evaluation note* Diagnosis Arthritis of right hip- Primary Right hip pain Pain in joint, pelvic region and thigh Chronic left shoulder pain Pain in joint, shoulder region Trochanteric bursitis of right hip documented in this encounter [facility] Work Phone: Evaluation note* Diagnosis Chronic left shoulder pain- Primary Pain in joint, shoulder region Right hip pain Pain in joint, pelvic region and thigh Sacroiliitis Sacroiliitis, not elsewhere classified documented in this encounter [facility] Work Phone: Evaluation note* Diagnosis Right hip pain Pain in joint, pelvic region and thigh Arthritis of right hip documented in this encounter [facility] Work Phone: Instructions* Attachments The following attachments cannot be sent through Care Everywhere. * Neck Stretches (German) * Shoulder Exercises With Weights (German) [facility] Work Phone: Reason for referral (narrative)No reason for referral information [facility]WAs[facility] Work Phone: Reason for visit Narrative* Imaging (Routine) - Authorized Specialty Diagnoses / Procedures Referred By Contac t Referred To Contact Radiology Diagnoses Right hip pain Arthritis of right hip Procedures XR pelvis 1-2 views Ivory Carlos, SRAVANI [address] [place] [address] Phone: tel: fax: Referral ID Status Reason Start Date Expiration Date Visits Requested Visits Authorized [id number] Authorized Perform Procedure 4 10/03/2025 1 1 [facility] Work Phone: Reason for visit Narrative* Imaging (Routine) - Authorized Specialty Diagnoses / Procedures Referred By Contac t Referred To Contact Pain Medicine / Radiology Diagnoses Right hip pain Arthritis of right hip Procedures [place] pain management Ivory Carlos PA-C [address] [place] [address] Phone: tel: fax: [facility] [address] [place] [address] Phone: tel: fax: Referral ID Status Reason Start Date Expiration Date Visits Requested Visits Authorized [id number] Authorized Perform Procedure 4 10/03/2025 1 1 [facility] Work Phone: Summary Purpose Family History No Family History Records Found Relationship Condition Age at Onset Recorded Date/T christen father Cardiac disease Unknown sister Cardiac disease Unknown Malignant neoplasm of breast Unknown Diabetes mellitus Unknown brother Cardiac disease Unknown Alzheimer's disease Unknown mother Malignant neoplasm Unknown Relationship Condition Age at Onset Recorded Date/T christen father Cardiac disease Unknown Hypertension Unknown sister Cardiac disease Unknown Malignant neoplasm of breast Unknown Diabetes mellitus Unknown brother Cardiac disease Unknown Alzheimer's disease Unknown mother Malignant neoplasm Unknown Cardiac disease Unknown Relationship Condition Age at Onset Recorded Date/T christen father Cardiac disease Unknown Hypertension Unknown sister Cardiac disease Unknown Malignant neoplasm of breast Unknown Diabetes mellitus Unknown Sepsis due to urinary tract infection Unk nown brother Cardiac disease Unknown Alzheimer's disease Unknown mother Malignant neoplasm Unknown Cardiac disease Unknown Advance Directives No Advanced Directives Records Found Advance Directive Response Recorded Date/ Time Living Will No October 24 5:09pm Power of Motor Installer No October 24 021 5:09pm Advance Directive Response Recorded Date/ Time Living Will No February 21, 2022 3: 42pm Power of Motor Installer No February 21, 2022 3:42pm Advance Directive Response Recorded Date/ Time Living Will No June 19 022 1:22am Power of Motor Installer No June 19, 2022 1:22am Advance Directive Response Recorded Date/ Time Living Will No June 19, 2 022 12:22am Power of Motor Installer No June 19, 2022 12:22am Latest Code Status on File Code Status Date Activated Date Inactivated Comments Full Code 09/26/2023 1:05 AM 09/26/2023 2:50 PM Advance Directive Response Recorded Date/ Time Living Will No March 01, 2024 5 :02pm Do you have a Healthcare Power of Motor Installer? No March 01, 2024 5:02pm Living Will No December 02, 2 025 4:08pm Do you have a Healthcare Power of Motor Installer? No December 02, 2024 4:08pm Chief Complaint and Reason for Visit Chief Complaint SCREENING 9 MO F/U (NN PT) DISPATCHER [place], EST. CARE- NPP MAILED CAD Coronary artery disease Reason for Visit Essential hypertensi on History of coronary artery stent placement HLD (hyperlipidemia) Ischemic cardiomyopathy Colon cancer screening Essential hypertension History of non-ST elevation myocardial infarction (NSTEMI) HLD (hyperlipidemia) Osteoporosis Chief Complaint 9 MO F/U (NN PT) DISPATCHER [place], EST. CARE- NPP MAILED CAD Coronary artery disease CSCOPE Reason for Visit Essential hypertensi on History of coronary artery stent placement HLD (hyperlipidemia) Ischemic cardiomyopathy Colon cancer screening Essential hypertension History of non-ST elevation myocardial infarction (NSTEMI) HLD (hyperlipidemia) Osteoporosis Colon cancer screening History of coronary artery stent placement Chief Complaint 9 MO F/U (NN PT) DISPATCHER [place], EST. CARE- NPP MAILED CAD Coronary artery disease CSCOPE 3 M FU Reason for Visit Essential hypertensi on History of coronary artery stent placement HLD (hyperlipidemia) Ischemic cardiomyopathy Colon cancer screening Essential hypertension History of non-ST elevation myocardial infarction (NSTEMI) HLD (hyperlipidemia) Osteoporosis Colon cancer screening History of coronary artery stent placement Arthritis Essential hypertension Chief Complaint CSCOPE 3 M FU pain in back/kidney area Reason for Visit Colon cancer screeni ng History of coronary artery stent placement Arthritis Essential hypertension Former smoker Right flank pain Chief Complaint 3 M FU pain in back/kidney area RIGHT FLANK PAIN 6 M FU INT LABS cp Reason for Visit Arthritis Essential hypertension Former smoker Right flank pain Chest pain Dyspnea Essential hypertension History of coronary artery stent placement HLD (hyperlipidemia) Ischemic cardiomyopathy Chief Complaint 3 M FU pain in back/kidney area RIGHT FLANK PAIN Reason for Visit Arthritis Essential hypertension Former smoker Right flank pain Chief Complaint 3 M FU pain in back/kidney area RIGHT FLANK PAIN 6 M FU INT LABS cp SHOULDER PAIN LEFT RADICULOPATHY, LEFT SHOULDER PAIN Reason for Visit Arthritis Essential hypertension Former smoker Right flank pain Chest pain Dyspnea Essential hypertension History of coronary artery stent placement HLD (hyperlipidemia) Ischemic cardiomyopathy Left cervical radiculopathy Left shoulder pain Chief Complaint pain in back/kidney area RIGHT FLANK PAIN 6 M FU INT LABS cp SHOULDER PAIN LEFT RADICULOPATHY, LEFT SHOULDER PAIN LT SHOULDER. RX HERE 4 M FU 6-8 WK F/U E ORDERS SOB Reason for Visit Former smoker Right flank pain Chest pain Dyspnea Essential hypertension History of coronary artery stent placement HLD (hyperlipidemia) Ischemic cardiomyopathy Left cervical radiculopathy Left shoulder pain Flu vaccine need Essential hypertension Hoarseness Fatigue Essential hypertension History of coronary artery stent placement HLD (hyperlipidemia) Ischemic cardiomyopathy Chief Complaint 6-8 WK F/U E ORDERS SOB 3 M FU EORDER 3 M FU Reason for Visit Fatigue Essential hypertension History of coronary artery stent placement HLD (hyperlipidemia) Ischemic cardiomyopathy Abdominal pain Essential hypertension Hoarseness Right foot pain Essential hypertension History of coronary artery stent placement HLD (hyperlipidemia) Ischemic cardiomyopathy Chief Complaint 6-8 WK F/U E ORDERS SOB 3 M FU EORDER 3 M FU E ORDER Reason for Visit Fatigue Essential hypertension History of coronary artery stent placement HLD (hyperlipidemia) Ischemic cardiomyopathy Abdominal pain Essential hypertension Hoarseness Right foot pain Essential hypertension History of coronary artery stent placement HLD (hyperlipidemia) Ischemic cardiomyopathy Chief Complaint 3 M FU EORDER 3 M FU E ORDER 3 M FU Reason for Visit Abdominal pain Essential hypertension Hoarseness Right foot pain Essential hypertension History of coronary artery stent placement HLD (hyperlipidemia) Ischemic cardiomyopathy Recurrent UTI Congestive heart failure (CHF) Essential hypertension Right groin pain Chief Complaint 3 M FU RT HIP OSTEOARTHRITIS. RX HERE ISCHEMIC CARDIOMYOPATHY Reason for Visit Recurrent UTI Congestive heart failure (CHF) Essential hypertension Right groin pain Chief Complaint 10 MO F/U 3 M FU EXPOSURED TO COVID/FATIGUE COVID TEST 1 YR WELLNESS Reason for Visit Essential hypertensi on History of coronary artery stent placement HLD (hyperlipidemia) Ischemic cardiomyopathy Essential hypertension Osteoarthritis of right hip Recurrent UTI Contact with and (suspected) exposure to other viral communicable diseases COVID-19 Flu vaccine need Essential hypertension HLD (hyperlipidemia) Insomnia Right ear pain Chief Complaint 1 YR WELLNESS 3 M FU SCREEN Unspecified lump in the right breast, unspecified Reason for Visit Flu vaccine need Essential hypertension HLD (hyperlipidemia) Insomnia Right ear pain Abdominal pain Essential hypertension Insomnia Osteoporosis Chief Complaint 3 M FU SCREEN Unspecified lump in the right breast, unspecified Birads 4 R Breast Wheezing EORDER Reason for Visit Abdominal pain Essential hypertension Insomnia Osteoporosis Abnormal mammogram of right breast Cyst of right breast Cough Swallowing difficulty Hoarseness Left cervical radiculopathy Chief Complaint 3 M FU SCREEN Unspecified lump in the right breast, unspecified Birads 4 R Breast Wheezing EORDER DYSPHAGIA Reason for Visit Abdominal pain Essential hypertension Insomnia Osteoporosis Abnormal mammogram of right breast Cyst of right breast Cough Swallowing difficulty Hoarseness Left cervical radiculopathy Chief Complaint Admit Date CONCERN FOR PULLED GROIN MUSCLE September 24, 2024 11:19am 3 M FU November 27, 2024 1:29pm cough, diarrhea December 02, 2024 12:41pm acute - [facility] er fu December 13, 2024 12:46pm POSSIBLE UTI January 03, 2025 2:0 5pm Reason for Visit Admit Date Abdominal wall strain September 24 11:19am COPD (chronic obstructive pulmonary dise ase) November 27, 2024 1:29pm Essential hypertension November 27 1:29pm HLD (hyperlipidemia) November 27, 2024 1:29pm Insomnia November 27, 2024 1:29pm Influenza A December 13, 2024 12:46pm UTI (urinary tract infection) December 2:05pm Chief Complaint Admit Date 3 M FU November 27, 2024 1:29pm cough, diarrhea December 02, 2024 12:41pm acute - [facility] er fu December 13, 2024 12:46pm POSSIBLE UTI January 03, 2025 2:0 5pm Pain January 31, 2025 8:1 1am Reason for Visit Admit Date COPD (chronic obstructive pulmonary dise ase) November 27, 2024 1:29pm Essential hypertension November 27 1:29pm HLD (hyperlipidemia) November 27, 2024 1:29pm Insomnia November 27, 2024 1:29pm Influenza A December 13, 2024 12:46pm UTI (urinary tract infection) December 2:05pm Chief Complaint Admit Date 3 M FU November 27, 2024 1:29pm cough, diarrhea December 02, 2024 12:41pm acute - [facility] er fu December 13, 2024 12:46pm POSSIBLE UTI January 03, 2025 2:0 5pm Pain January 31, 2025 8:1 1am 6 M FU March 04, 2025 1:06p m Reason for Visit Admit Date COPD (chronic obstructive pulmonary dise ase) November 27, 2024 1:29pm Essential hypertension November 27 1:29pm HLD (hyperlipidemia) November 27, 2024 1:29pm Insomnia November 27, 2024 1:29pm Influenza A December 13, 2024 12:46pm UTI (urinary tract infection) December 2:05pm CHRISTINE (dyspnea on exertion) March 04, 2025 1:06pm Essential hypertension March 04, 2025 1: 06pm History of coronary artery stent placeme nt March 04, 2025 1:06pm HLD (hyperlipidemia) March 04, 2025 1:06 pm Ischemic cardiomyopathy March 04, 2025 1 :06pm Chief Complaint Admit Date 3 M FU November 27, 2024 1:29pm cough, diarrhea December 02, 2024 12:41pm acute - [facility] er fu December 13, 2024 12:46pm POSSIBLE UTI January 03, 2025 2:0 5pm Pain January 31, 2025 8:1 1am 6 M FU March 04, 2025 1:06p m INT LAB ORDERS March 04, 2025 1:44p m Reason for Visit Admit Date COPD (chronic obstructive pulmonary dise ase) November 27, 2024 1:29pm Essential hypertension November 27 1:29pm HLD (hyperlipidemia) November 27, 2024 1:29pm Insomnia November 27, 2024 1:29pm Influenza A December 13, 2024 12:46pm UTI (urinary tract infection) December 2:05pm CHRISTINE (dyspnea on exertion) March 04, 2025 1:06pm Fatigue March 04, 2025 1:06p m Essential hypertension March 04, 2025 1: 06pm History of coronary artery stent placeme nt March 04, 2025 1:06pm HLD (hyperlipidemia) March 04, 2025 1:06 pm Ischemic cardiomyopathy March 04, 2025 1 :06pm Chief Complaint Admit Date 3 M FU November 27, 2024 1:29pm cough, diarrhea December 02, 2024 12:41pm acute - [facility] er fu December 13, 2024 12:46pm POSSIBLE UTI January 03, 2025 2:0 5pm Pain January 31, 2025 8:1 1am 6 M FU March 04, 2025 1:06p m INT LAB ORDERS March 04, 2025 1:44p m fu March 24, 2025 9:50a m Chief Complaint Admit Date POSSIBLE UTI January 03, 2025 2:0 5pm Pain January 31, 2025 8:1 1am 6 M FU March 04, 2025 1:06p m INT LAB ORDERS March 04, 2025 1:44p m fu March 24, 2025 9:50a m SEVERE ACID REFLUX April 30, 2025 4:28 pm Reason for Visit Admit Date UTI (urinary tract infection) December 2:05pm CHRISTINE (dyspnea on exertion) March 04, 2025 1:06pm Fatigue March 04, 2025 1:06p m Essential hypertension March 04, 2025 1: 06pm History of coronary artery stent placeme nt March 04, 2025 1:06pm HLD (hyperlipidemia) March 04, 2025 1:06 pm Ischemic cardiomyopathy March 04, 2025 1 :06pm COPD (chronic obstructive pulmonary dise ase) March 24, 2025 9:50am Essential hypertension March 24, 2025 9: 50am GERD (gastroesophageal reflux disease) J une 2024 9:50am HLD (hyperlipidemia) March 24, 2025 9:50 am Chief Complaint Admit Date 6 M FU March 04, 2025 1:06p m INT LAB ORDERS March 04, 2025 1:44p m fu March 24, 2025 9:50a m SEVERE ACID REFLUX April 30, 2025 4:28 pm 3 M FU June 30, 2025 10:45am Reason for Visit Admit Date CHRISTINE (dyspnea on exertion) March 04, 2025 1:06pm Fatigue March 04, 2025 1:06p m Essential hypertension March 04, 2025 1: 06pm History of coronary artery stent placeme nt March 04, 2025 1:06pm HLD (hyperlipidemia) March 04, 2025 1:06 pm Ischemic cardiomyopathy March 04, 2025 1 :06pm COPD (chronic obstructive pulmonary dise ase) March 24, 2025 9:50am Essential hypertension March 24, 2025 9: 50am GERD (gastroesophageal reflux disease) J une 2024 9:50am HLD (hyperlipidemia) March 24, 2025 9:50 am Overweight (BMI 25.0-29.9) April 30 4:28pm Essential hypertension April 30, 2025 4 :28pm GERD (gastroesophageal reflux disease) J keila 2024 4:28pm DEEPAK (obstructive sleep apnea) April 30, 2025 4:28pm Reason for Referral Specialty Diagnoses / Procedures Referred By Contac t Referred To Contact Radiology Diagnoses Cervical neuritis Chronic left shoulder pain Procedures XR shoulder left 2+ views Ivory Carlos PA-C [address] [place] [address] Referral ID Status Reason Start Date Expiration Date Visits Requested Visits Authorized [id number] Authorized Perform Procedure 4 07/25/2025 1 1 Specialty Diagnoses / Procedures Referred By Contac t Referred To Contact Radiology Diagnoses Cervical neuritis Chronic left shoulder pain Procedures XR cervical spine 2-3 views Ivory Carlos PA-C [address] [place] [address] Referral ID Status Reason Start Date Expiration Date Visits Requested Visits Authorized [id number] Authorized Perform Procedure 4 07/25/2025 1 1 Additional Source Comments INFORMATION SOURCE (unrecogn ized section and content) DATE CREATED AUTHOR 04/05/2018 [facility] DATE CREATED AUTHOR AUTHOR'S ORGANIZ ATION 05/07/2020 [facility] DATE CREATED AUTHOR AUTHOR'S ORGANIZ ATION 10/04/2023 [facility] DATE CREATED AUTHOR [facility]S [facility]IZ AT[facility] [facility] DATE CREATED AUTHOR AUTHOR'S ORGANIZ ATION 05/13/2025 [facility] DATE CREATED AUTHOR AUTHOR'S ORGANIZ ATION 08/17/2025 [facility] Goals (unrecognized section and content) Goals may be documented in a n alternate sectionGoals may be documented in an alternate sectionGoals may be documented in an alternate sectionGoals may be documented in an alternate sectionGoals may be documented in an alternate sectionGoals may be documented in an alternate sectionGoals may be documented in an alternate sectionGoals may be documented in an alternate sectionGoals may be documented in an alternate sectionGoals may be documented in an alternate sectionGoals may be documented in an alternate sectionGoals may be documented in an alternate sectionGoals may be documented in an alternate sectionGoals may be documented in an alternate sectionGoals may be documented in an alternate sectionGoals may be documented in an alternate sectionGoals may be documented in an alternate sectionGoals may be documented in an alternate sectionGoals may be documented in an alternate sectionGoals may be documented in an alternate sectionGoals may be documented in an alternate sectionGoals may be documented in an alternate sectionGoals may be documented in an alternate section Care Teams (unrecognized sec tion and content) Team Status: Active Member Role Status Dates MILADY CALL Family Provider Active Dr. Yuko Lofton MD Primary Care Provider Active Team Status: Inactive Member Role Status Dates Dr. Yuko Lofton MD Primary Care Provider, Refer ring Provider Active Carisa Carty DISPATCHER TUGBOAT, DISPATCHER TUGBOAT-C Attending Provider Active Team Status: Inactive Member Role Status Dates Dr. Yuko Lofton MD Primary Care P rovider, Attending Provider, Referring Provider Active Team Status: Active Member Role Status Dates Dr. Yuko Lofton MD Primary Care Provider Active Dr. Cole Ochoa MD Attending Provider Active Team Status: Inactive Member Role Status Dates Dr. Yuko Lofton MD Primary Care Provider Active Carisa Carty DISPATCHER TUGBOAT, DISPATCHER TUGBOAT-C Attending Provider Active Team Status: Inactive Member Role Status Dates Dr. Yuko Lofton MD Primary Care Provider Active Carisa Carty DISPATCHER TUGBOAT, DISPATCHER TUGBOAT-C Attending Provider, Referring P rovider Active Team Status: Active Member Role Status Dates Dr. Yuko Lofton MD Primary Care Provider Active Dr. Cole Ochoa MD Attending Provider Active Carisa Carty DISPATCHER TUGBOAT, DISPATCHER TUGBOAT-C Referring Provider Active Team Status: Inactive Member Role Status Dates Dr. Yuko Lofton MD Primary Care Provider, Refer ring Provider Active Dr. Cole Ochoa MD Attending Provider Active Team Status: Inactive Member Role Status Dates Dr. Yuko Lofton MD Primary Care Provider, Refer ring Provider Active Coleman Nieto PA, PA Attending Provider Active Team Status: Inactive Member Role Status Dates Dr. Yuko Lofton MD Primary Care Provider, Refer ring Provider Active Bunny MCKEON, PA Attending Provider Active Operator Helper Relationship Specialty Start Date End Date Yuko Lofton MD [address] [place], [place] [address] [id number] PCP - General Internal Medicine 09/25/23 Team Status: Active Member Role Status Dates Dr. Yuko Lofton MD Primary Care P harini, Attending Provider, Referring Provider Active Team Status: Inactive Member Role Status Dates Dr. uYko Lofton MD Primary Care Provider, Refer ring Provider Active Dr. Eovn Cross MD Attending Provider Active Operator Helper Relationship Specialty Start Date End Date Yuko Lofton MD [address] [facility] [place] [address] PCP - General Internal Medicine 07/24/24 Operator Helper Relationship Specialty Start Date End Date Yuko Lofton MD [address] [facility] [place] [address] PCP - General Internal Medicine 07/24/24 Operator Helper Relationship Specialty Start Date End Date Yuko Lofton MD [address] [facility] [place] [address] PCP - General Internal Medicine 07/24/24 Operator Helper Relationship Specialty Start Date End Date Yuko Lofton MD [address] [facility] [place] [address] PCP - General Internal Medicine 07/24/24 Operator Helper Relationship Specialty Start Date End Date Yuko Lofton MD [address] [facility] [address] [place], [place] [id number] PCP - General Internal Medicine 07/24/24 Operator Helper Relationship Specialty Start Date End Date Yuko Lofton MD [facility] [place] [address] PCP - General Internal Medicine 07/24/24 Team Status: Active Member Role Status Dates Dr. Yuko Lofton MD Primary Care Provider Active Team Status: Inactive Member Role Status Dates Dr. Yuko Lofton MD Primary Care Provider Active Start: September 24, 2024 End: September 24, 2024 Dr. Yuko Lofton MD Referring Provider Active Start: September 24, 2024 End: September 24, 2024 Coleman MCKEON, PA Attending Provider Active Start: September 24, 2024 End: September 24, 2024 Team Status: Inactive Member Role Status Dates Dr. Yuko Lofton MD Primary Care Provider Active Start: November 27, 2024 End: November 27, 2024 Dr. Yuko Lofton MD Attending Provider Active Start: November 27, 2024 End: November 27, 2024 Dr. Yuko Lofton MD Referring Provider Active Start: November 27, 2024 End: November 27, 2024 Team Status: Inactive Member Role Status Dates Dr. Yuko Lofton MD Primary Care Provider Active Start: December 02, 2024 End: December 02, 2024 Dr. Monet Amato DO Attending Provider Active Start: December 02, 2024 End: December 02, 2024 Dr. Monet Amato DO Emergency Provider Active Start: December 02, 2024 End: December 02, 2024 Team Status: Inactive Member Role Status Dates Dr. Yuko Lofton MD Primary Care Provider Active Start: December 13, 2024 End: December 13, 2024 Dr. Yuko Lofton MD Referring Provider Active Start: December 13, 2024 End: December 13, 2024 LINDA Hodge Attending Provider Active St art: December 13, 2024 End: December 13, 2024 Team Status: Inactive Member Role Status Dates Dr. Yuko Lofton MD Primary Care Provider Active Start: January 03, 2025 End: January 03, 2025 Dr. Yuko Lfoton MD Referring Provider Active Start: January 03, 2025 End: January 03, 2025 Santhosh Thompson PA, PA Attending Provider Active St art: January 03, 2025 End: January 03, 2025 Team Status: Inactive Member Role Status Dates Dr. Yuko Lofton MD Primary Care Provider Active Start: January 10, 2025 End: January 10, 2025 Santhosh Thompson PA, PA Attending Provider Active St art: January 10, 2025 End: January 10, 2025 Santhosh Thompson PA, PA Referring Provider Active St art: January 10, 2025 End: January 10, 2025 Team Status: Inactive Member Role Status Dates Dr. Yuko Lofton MD Primary Care Provider Active Start: January 31, 2025 End: January 31, 2025 Santhosh Thompson PA, PA Attending Provider Active St art: January 31, 2025 End: January 31, 2025 Santhosh Thompson PA, PA Referring Provider Active St art: January 31, 2025 End: January 31, 2025 Team Status: Active Member Role Status Dates Dr. Yuko Lofton MD Primary Care Provider Active Start: February 04, 2025 Santhosh Thompson PA, PA Attending Provider Active St art: February 04, 2025 Santhosh Thompson PA, PA Referring Provider Active St art: February 04, 2025 Team Status: Inactive Member Role Status Dates Dr. Yuko Lofton MD Primary Care Provider Active Start: February 04, 2025 End: February 04, 2025 Santhosh Thompson PA, PA Attending Provider Active St art: February 04, 2025 End: February 04, 2025 Santhosh Thompson PA, PA Referring Provider Active St art: February 04, 2025 End: February 04, 2025 Team Status: Inactive Member Role Status Dates Dr. Yuko Lofton MD Primary Care Provider Active Start: March 04, 2025 End: March 04, 2025 Dr. Yuko Lofton MD Referring Provider Active Start: March 04, 2025 End: March 04, 2025 Carisa Carty DISPATCHER TUGBOAT, DISPATCHER TUGBOAT-C Attending Provider Active Start: March 04, 2025 End: March 04, 2025 Team Status: Inactive Member Role Status Dates Dr. Yuko Lofton MD Primary Care Provider Active Start: March 04, 2025 End: March 04, 2025 Carisa Carty DISPATCHER TUGBOAT, DISPATCHER TUGBOAT-C Attending Provider Active Start: March 04, 2025 End: March 04, 2025 Carisa Carty DISPATCHER TUGBOAT, DISPATCHER TUGBOAT-C Referring Provider Active Start: March 04, 2025 End: March 04, 2025 Team Status: Inactive Member Role Status Dates Dr. Yuko Lofton MD Primary Care Provider Active Start: March 24, 2025 End: March 24, 2025 Dr. Yuko Lofton MD Attending Provider Active Start: March 24, 2025 End: March 24, 2025 Dr. Yuko Lofton MD Referring Provider Active Start: March 24, 2025 End: March 24, 2025 Team Status: Active Member Role/Relationship Status Dates Dr. Yuko Lofton MD Primary Care Provider Active Team Status: Inactive Member Role/Relationship Status Dates Dr. Yuko Lofton MD Primary Care Provider Active Start: January 03, 2025 End: January 03, 2025 Dr. Yuko Lofton MD Referring Provider Active Start: January 03, 2025 End: January 03, 2025 Santhosh MCKEON PA Attending Provider Active St art: January 03, 2025 End: January 03, 2025 Team Status: Inactive Member Role/Relationship Status Dates Dr. Yuko Lofton MD Primary Care Provider Active Start: January 10, 2025 End: January 10, 2025 Santhosh MCKEON PA Attending Provider Active St art: January 10, 2025 End: January 10, 2025 Santhosh MCKEON, PA Referring Provider Active St art: January 10, 2025 End: January 10, 2025 Team Status: Inactive Member Role/Relationship Status Dates Dr. Yuko Lofton MD Primary Care Provider Active Start: January 31, 2025 End: January 31, 2025 Santhosh MCKEON, PA Attending Provider Active St art: January 31, 2025 End: January 31, 2025 Santhosh Thompson PA, PA Referring Provider Active St art: January 31, 2025 End: January 31, 2025 Team Status: Inactive Member Role/Relationship Status Dates Dr. Yuko Lofton MD Primary Care Provider Active Start: February 04, 2025 End: February 04, 2025 LINDA Hodge Attending Provider Active St art: February 04, 2025 End: February 04, 2025 LINDA Hodge Referring Provider Active St art: February 04, 2025 End: February 04, 2025 Team Status: Inactive Member Role/Relationship Status Dates Dr. Yuko Lofton MD Primary Care Provider Active Start: March 04, 2025 End: March 04, 2025 Dr. Yuko Lofton MD Referring Provider Active Start: March 04, 2025 End: March 04, 2025 Carisa Carty DISPATCHER TUGBOAT, DISPATCHER TUGBOAT-C Attending Provider Active Start: March 04, 2025 End: March 04, 2025 Team Status: Inactive Member Role/Relationship Status Dates Dr. Yuko Lofton MD Primary Care Provider Active Start: March 04, 2025 End: March 04, 2025 Carisa Carty DISPATCHER TUGBOAT, DISPATCHER TUGBOAT-C Attending Provider Active Start: March 04, 2025 End: March 04, 2025 Carisa Carty DISPATCHER TUGBOAT, DISPATCHER TUGBOAT-C Referring Provider Active Start: March 04, 2025 End: March 04, 2025 Team Status: Inactive Member Role/Relationship Status Dates Dr. Yuko Lofton MD Primary Care Provider Active Start: March 24, 2025 End: March 24, 2025 Dr. Yuko Lofton MD Attending Provider Active Start: March 24, 2025 End: March 24, 2025 Dr. Yuko Lofton MD Referring Provider Active Start: March 24, 2025 End: March 24, 2025 Team Status: Inactive Member Role/Relationship Status Dates Dr. Yuko Lofton MD Primary Care Provider Active Start: April 30, 2025 End: April 30, 2025 Dr. Yuko Lofton MD Attending Provider Active Start: April 30, 2025 End: April 30, 2025 Dr. Yuko Lofton MD Referring Provider Active Start: April 30, 2025 End: April 30, 2025 Operator Helper Relationship Specialty Start Date End Date Yuko Lofton MD [address] [place] [address] [place] [address] PCP - General Internal Medicine 07/24/24 Team Status: Inactive Member Role/Relationship Status Dates Dr. Yuko Lofton MD Primary Care Provider Active Start: March 04, 2025 End: March 04, 2025 Dr. Yuko Lofton MD Referring Provider Active Start: March 04, 2025 End: March 04, 2025 Carisa Carty DISPATCHER TUGBOAT, DISPATCHER TUGBOAT-C Attending Provider Active Start: March 04, 2025 End: March 04, 2025 Team Status: Inactive Member Role/Relationship Status Dates Dr. Yuko Lofton MD Primary Care Provider Active Start: March 04, 2025 End: March 04, 2025 Carisa Carty DISPATCHER TUGBOAT, DISPATCHER TUGBOAT-C Attending Provider Active Start: March 04, 2025 End: March 04, 2025 Carisa Carty DISPATCHER TUGBOAT, DISPATCHER TUGBOAT-C Referring Provider Active Start: March 04, 2025 End: March 04, 2025 Team Status: Inactive Member Role/Relationship Status Dates Dr. Yuko Lofton MD Primary Care Provider Active Start: March 24, 2025 End: March 24, 2025 Dr. Yuko Lofton MD Attending Provider Active Start: March 24, 2025 End: March 24, 2025 Dr. Yuko Lofton MD Referring Provider Active Start: March 24, 2025 End: March 24, 2025 Team Status: Inactive Member Role/Relationship Status Dates Dr. Yuko Lofton MD Primary Care Provider Active Start: April 15, 2025 Dr. Alise Bateman MD Attending Provider Active Start: April 15, 2025 Team Status: Inactive Member Role/Relationship Status Dates Dr. Yuko Lofton MD Primary Care Provider Active Start: April 30, 2025 End: April 30, 2025 Dr. Yuko Lofton MD Attending Provider Active Start: April 30, 2025 End: April 30, 2025 Dr. Yuko Lofton MD Referring Provider Active Start: April 30, 2025 End: April 30, 2025 Team Status: Inactive Member Role/Relationship Status Dates Dr. Yuko Lofton MD Primary Care Provider Active Start: June 30, 2025 End: June 30, 2025 Dr. Yuko Lofton MD Attending Provider Active Start: June 30, 2025 End: June 30, 2025 Dr. Yuko Lofton MD Referring Provider Active Start: June 30, 2025 End: June 30, 2025 Operator Helper Relationship Specialty [place] [address] [place] [address] [place] [address] PCP - General Internal Medicine 07/24/24 Reason for Visit (unrecogniz ed section and content) Specialty Diagnoses / Procedures Referred By Dorian morales Referred To Contact Diagnoses Chest pain Chest pain Referral ID Status Reason Start Date Expiration Date Visits Re quested Visits Authorized [id number] 1 Reason Comments Pain NEW PATIENT, [...] pain Procedures XR cervical spine 2-3 views Ivory Carlos PA-C [address] [place] [address] Referral ID Status Reason Start Date Expiration Date Visits Requested Visits Authorized [id number] Authorized Perform Procedure 4 07/25/2025 1 1 Specialty Diagnoses / Procedures Referred By Dorian t Referred To Contact Radiology Diagnoses Cervical neuritis Chronic left shoulder pain Procedures XR shoulder left 2+ views Ivory Carlos PA-C [address] [place] [address] Referral ID Status Reason Start Date Expiration Date Visits Requested Visits Authorized [id number] Authorized Perform Procedure 4 07/25/2025 1 1 Reason Comments Follow-up FUV for Xray results and HEP. Today she is not having any pain and is intermittent and mostly at night rates 8/10 when she is having the pain in her neck and radiates in to her lt arm, describes as throbbing. She is taking Tylenol helps, Aleve helps the most but she only takes it sparingly due to taking a blood thinner, HEP from PT do not help and made the pain so she stopped. Reason Comments Follow-up FUV for Lt shoulder injection, she reports the medrol pack helped her pain and her shoulder is no longer hurting. Today she reports having Rt side hip pain that goes into her rt groin area 04/24, describes as aching and is increased with standing a lot. She is taking Tylenol, Aleve sparingly as she is on a blood thinner, she does not do her HEP as it increased her pain. Reason Comments Follow-up FOLLOW UP RIGHT HIP INJECTION DONE ON 10/25/24 PATIENT STATES SHE HAS GOTTEN RELIEF SINCE THE PROCEDURE, SHE NOTES SHE HAD TO SIT IN THE CAR FOR 3 HOURS AFTER HER PROCEDURE AND FEELS SHE DIDN'T GET MOVING ENOUGH TO CIRCULATE THE MEDICATION, Reason Comments Pain A COUPLE OF WEEKS AG O SHE WAS HAVING LEFT ARM AND SHOULDER PAIN FOR 3 DAYS, AN ACHING PAIN , SHE CANNOT REMEMBER WHAT ACTIVITY BROUGHT ON THE PAIN, SHE USED SALON PAS, TYLENOL, Scheduled Active and Recently Administ ered Medications (unrecognized section and content) Medication Order 09/24/2023 09/25/2023 09/26/2023 amLODIPine (NORVASC) tablet 10 mg 10 mg, Oral, Daily, First dose on Mon09/26/23 at 0900 0824 (Given - Provid er: Sarah Duran RN) aspirin chewable tablet 81 mg 81 mg, Oral, Daily, First dose on Mon09/26/23 at 0900 0825 (Given - Provid er: Sarah Duran RN) atorvastatin (LIPITOR) tablet 10 mg 10 [...] physician if patient refuses., Indication: VTE Prophylaxis 0825 (Given - Provid er: Sarah Duran [...] mL, Intravenous, Once in imaging, contrast, Per secondary teacher (Radiology) for line patency check prior to contrast administration, Starting on Mon09/26/23 at 0927, For 1 dose 09 (Given - Provid er: Josie Real, TECHNOLOGIST) sodium chloride (PF) (NS) 0.9 % contrast line flush 80 mL (COMPLETED)(Linked Group 3) 80 mL, Intravenous, Once in imaging, contrast, Per secondary teacher (Radiology), Starting on Mon09/26/23 at 0927, For 1 dose, 30 mL BEFORE contrast administration 50 mL AFTER contrast administration 928 (Given - Provid er: Josie Real, TECHNOLOGIST) [...] mL, Intravenous, Once in imaging, contrast, Per secondary teacher (Radiology) for line patency check prior to contrast administration, Starting on Mon09/26/23 at 0927, For 1 dose And sodium chloride (PF) (NS) 0.9 % contrast line flush 80 mL (COMPLETED)Jump to med 80 mL, Intravenous, Once in imaging, contrast, Per secondary teacher (Radiology), Starting on Mon09/26/23 at 0927, For 1 dose
30 mL BEFORE contrast administration 50 mL AFTER contrast administration
FOR RECORDS PERTAINING TO PATIENTS WHO ARE [...] BE BASED ON THE PRIMARY CLINICAL RECORDS. [facility]. provides no warranty or guarantee of the accuracy or completeness of information in this document.
--- NOTE | 2025-10-10 13:41 | VDLE_ITS ---
Reason For Study Reason For Study: Left leg pain RIGHT LEFT CFV is compressible, spontaneous, phasic, competent GSV is normal. and demonstrates normal augmentation. CFV is compressible, spontaneous, phasic, competent, Procedure and demonstrates normal augmentation. This is a venous duplex using B-mode, color flow and FV is compressible, spontaneous, phasic, competent spectral Doppler. and demonstrates normal augmentation. Exam performed portable in ED. POP V is compressible, spontaneous, phasic, competent A preliminary report was called and/or faxed to and demonstrates normal augmentation. Missy. T/P Trunk is compressible. PTV is compressible. LT PerV is compressible. VL/Venous Duplex US, Unilateral Interpretation Summary Deep veins of the left lower extremity are patent and compressible segmentally. There is no evidence of left lower extremity deep vein thrombosis. Valvular competence appears intact within the p roximal deep venous system on the left . The left great saphenous vein appears patent and compressible segmentally. The right common femoral vein is patent and compressible . Ordering Physician: Wiilan Louis Referring Physician: Julia Lofton Performed By: Maria Guadalupe Pearce RVT
--- NOTE | 2025-10-10 13:51 | EDS_ITS ---
HPI History of Present Illness Chief Complaint: Lower Extremity Injury Informant: patient and spouse/S.O. Narrative Narrative: 80-year-old female presenting to the emergency room with a chief complaint of foot pain. Patient states that 3 weeks ago she kicked a table leg with her right foot injuring the fourth digit. She states that she was seen in urgent care maybe a week to 2 weeks ago and had negative x-rays. She continues to have swelling and pain. She states that she has been more active than normal and sometimes it makes her foot hurt more. She notes that the swelling is still present. She notes sometimes she has pain up the leg to the thigh. She called her doctor's office and was sent to emergency. Patient notes a history of coronary artery disease. She states she is supposed to be taking Lasix but because of needing bathrooms she does not take it very often. She did take it last night and today. This morning she used inhaler because she felt more short of breath than normal. She denies any chest pain. [facility] Medical History Encounter for immunization Bilateral lower extremity edema Left flank pain Overweight (BMI 25.0-29.9) Obesity Abdominal wall strain Eye twitch Pain, eye, right UTI (urinary tract infection) GERD (gastroesophageal reflux disease) Cough Cervical radiculopathy Swallowing difficulty Abnormal mammogram of right breast Breast mass, right Insomnia Right ear pain Contact with and (suspected) exposure to other viral communicable diseases CVA (cerebral vascular accident) Osteoarthritis of right hip Recurrent UTI Congestive heart failure (CHF) Right groin pain Dry mouth Leg cramps Dehydration Dark urine Abdominal pain Right foot pain Flu vaccine need Hoarseness Left shoulder pain Left cervical radiculopathy Abnormal urinalysis Right flank pain Post-menopausal Wears dentures Wears glasses Arthritis High cholesterol TIA (transient ischemic attack) Former smoker Sleep apnea Shortness of breath on exertion Chronic cough History of echocardiogram History of stress test Hypertension Cardiology follow-up encounter History of heart attack Colon cancer screening Arthritis Cataracts, bilateral Osteoporosis Ischemic cardiomyopathy Essential hypertension History of non-ST elevation myocardial infarction (NSTEMI) (01/02/20) Hyperlipidemia COPD (chronic obstructive pulmonary disease) Retinal artery thrombosis, 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) Atherosclerosis of coronary artery of [place] heart without angina pectoris Dyspnea Lung nodule Periodic limb movement DEEPAK (obstructive sleep apnea) Home Medications ?Medication ?Instructions ?Recorded ?Last Taken ?Type aspirin 81 mg chewable tablet 81 mg PO DAILY@0800 prev entative 01/02/20 10/10/25 History nitroglycerin 0.4 mg sublingual 0.4 mg sublingual Q5-1 5M PRN chest 04/11/24 Unknown Rx tablet pain #25 tabs budesonide-formoterol HFA 160 2 puff inhalation BID #1 0.2 grams 11/27/24 10/09/25 Rx mcg-4.5 mcg/actuation aerosol inhaler (Symbicort) cholecalciferol (vitamin D3) 1,250 1,250 mcg PO QWEEK #14 caps 06/26/25 10/08/25 Rx mcg (50,000 unit) capsule furosemide 40 mg tablet 40 mg PO QDAY #90 tabs 09/16 Unknown Rx metoprolol succinate 50 mg 50 mg PO DAILY #90 TABLETS 09/16/25 10/10/25 Rx tablet,extended release 24 hr amlodipine 5 mg tablet See Rx Instructions .Route 1 11/25/24 10/10/25 Rx .COMPLEX #90 tabs atorvastatin 40 mg tablet 40 mg PO QHS Cholesterol #90 tabs 09/30/25 10/09/25 Rx clopidogrel 75 mg tablet 75 mg PO DAILY Heart #90 tab s 09/30/25 Unknown Rx pantoprazole 40 mg tablet,delayed 40 mg PO QDAY #90 ta bs 09/30/25 10/10/25 Rx release (Protonix) Allergy/AdvReac Type Severity Reaction Status Date / Time nitrofurantoin Allergy Intermediate Itching Verified 10/10/25 12:05 lisinopril Allergy Cough Verified 10/10/25 12:05 losartan Allergy Cough Verified 10/10/25 12:05 Sulfa (Sulfonamide AdvReac Rash Verified 10/10/25 12:05 Antibiotics) Family History Father Heart disease Hypertension Sister Heart disease Breast cancer Diabetes Hypertension Sepsis due to urinary tract infection Brother Heart disease Alzheimer's dementia Diabetes Hypertension Mother Cancer Bladder Heart disease Hypertension Surgical History History of cardiac catheterization History of reconstructive repair of rectocele History of coronary artery stent placement History of lymph node excision History of cholecystectomy History of hysterectomy Social History Smoking Status: Former smoker Tobacco: How many years used: 34 how long ago did patient quit smokin second hand exposure: No alcohol intake: current alcohol intake frequency: holidays/special occasions only substance use type: does not use caffeine: Yes Type: coffee Number of servings: 3 what type of physical activity do you participate in: walking ROS ROS ED Constitutional Constitutional ED: Denies chills, fever(s) or weight loss Eyes Eyes: Denies change in vision or diplopia ENT ENT ED: Denies ear pain, rhinorrhea or sore throat Cardiovascular Cardiovascular: Denies chest pain, orthopnea, palpitations or racing heartbeat Respiratory/Chest Respiratory/Chest: Reports dyspnea; Denies cough or orthopnea Gastrointestinal Gastrointestinal: Denies abdominal pain, diarrhea, nausea or vomiting Genitourinary Genitourinary ED: Denies dysuria, hematuria or urinary frequency Musculoskeletal Musculoskeletal: Reports other Details: See history of present illness ; Denies arthralgias or myalgias Integumentary Denies abscess or rash Neurologic Neurologic: Denies headache(s) or weakness Psychiatric Psychiatric: Denies anxiety, depression, suicidal ideation or suicidal thoughts Endocrine Endocrinology: Denies polydipsia, polyphagia or polyuria Allergic/Immunologic Allergic/Immunologic ED: Denies mouth swelling, tongue swelling or urticaria EXAM Physical Exam Const Vital Signs: 10/10/25 12:04 Temperature 97.2 F L Temperature Source Oral Pulse Rate 75 Respiratory Rate 16 Blood Pressure 160/72 H Blood Pressure Mean 101 Pulse Ox 96 Oxygen Delivery Method Room Air Positive well nourished and well developed General Appearance ED: well developed HEENT Reports normocephalic, head/scalp atraumatic and moist mucous membranes Eyes PERRL and EOMs intact bilaterally Neck full ROM, no lymphadenopathy, supple and no JVD Thyroid: Negative for tender Resp normal respiratory effort and clear to auscultation bilaterally Cardio regular rate, regular rhythm and no murmurs GI normal to inspection, nondistended, normoactive bowel sounds and non-tender Palpation: soft Back/Spine no CVA tenderness and normal ROM Extremity Extremity Narrative: There is bilateral left greater than right leg swelling. The left foot is more edematous than the right. She reports tenderness of the fourth digit. I do not appreciate any ecchymosis or erythema. The calf is nontender. There are no pal pable cords. The left fourth toe is not deformed. I do not appreciate malrotation. Neurovascular is intact. General Extremety ED: Yes edema General Extremity: edema bilateral Neuro oriented x3 and CN's II-XII intact bilaterally Sensorium / Orientation: alert Motor Exam: strength 5/5 throughout Psych mental status grossly normal Mood & Affect: Negative for depressed or tearful Skin no rashes or lesions noted and no wounds MDM MDM MDM Narrative Medical decision making narrative: Differential diagnosis includes toe fracture DVT congestive heart failure pleural effusion acute kidney injury electrolyte abnormalities Duplex ultrasound is negative for DVT. My independent interpretation of the plain films of the left foot is a nondisplaced fracture of the proximal phalanx left fourth toe. My independent interpretation of the chest x-ray is no significant effusion. Mild vascular congestion. proBNP is 622 troponin of 9 creatinine 0.84 white count 6.8. Patient appears stable. She is not hypoxic or tachycardic. Clinically the patient has a toe fracture which I think is stable now that is 3 weeks post trauma. She can dayana tape as needed but it is not displaced. I think the leg swelling is more likely to be due to her noncompliance with the furosemide. I would recommend her taking the Lasix 40 mg every day. She needs to monitor her salt intolerant and elevate her legs is much as possible over the next couple days. Patient and her are comfortable with this plan. History & Record Review Discussion w/independent historian: Patient and Significant other Lab Data Attestation: I reviewed the patient's lab results. Labs: Laboratory Results - last 24 hr 10/10/25 13:50 WBC 6.8 RBC 4.40 Hgb 12.6 Hct 37.7 MCV 85.7 MCH 28.6 MCHC 33.4 RDW Std Deviation 40.0 RDW Coeff of Vlad 12.7 Plt Count 245 MPV 10.2 Immature Gran % (Auto) 0.400 Neut % (Auto) 59.6 Lymph % (Auto) 30.0 [place] % (Auto) 7.2 Eos % (Auto) 2.5 Baso % (Auto) 0.3 Absolute Neuts (auto) 4.1 Absolute Lymphs (auto) 2.04 Nucleated RBC % 0 Sodium 142 Potassium 3.6 Chloride 102 Carbon Dioxide 27.9 Anion Gap 12 BUN 15 Creatinine 0.84 Estim Creat Clear Calc 54.04 Est GFR (MDRD) Non-Af 70 BUN/Creatinine Ratio 17.4 Glucose 99 Calcium 9.5 Troponin T High Sens 9 NT pro BNP II 622 Radiography Diagnostic Testing: Clinical Impression(s) from Imaging Studies Foot X-Ray 10/10/25 13:15 IMPRESSION: Soft tissue swelling without fracture or dislocation. Reading Location: [facility] Chest X-Ray 10/10/25 13:55 IMPRESSION: Mild pulmonary edema. No focal consolidations. Reading Location: [facility] Discharge Plan Triage Chief Complaint: Lower Extremity Injury ED Provider: Wilian Louis Dx/Rx/DC Orders Clinical Impression: CHF (congestive heart failure), Closed fracture of proximal phalanx of toe of left foot, Leg swelling Instructions: ED Heart Failure, Congestive (CHF), ED Closed Toe Fracture Prescriptions: No Action nitroglycerin 0.4 mg tablet, sublingual 0.4 mg SUBLINGUAL Q5-15M PRN (Reason: chest pain) Qty: 25 3RF Rx Instructions: do not exceed 3 doses per episode budesonide-formoterol [Symbicort] 160-4.5 mcg/actuation HFA aerosol inhaler 2 puff inhalation BID Qty: 10.2 3RF aspirin 81 MG tablet,chewable 81 mg PO DAILY@0800 cholecalciferol (vitamin D3) 1,250 mcg (50,000 unit) capsule 1,250 mcg PO QWEEK Qty: 14 2RF Patient Comments: Take on Wednesdays furosemide 40 mg tablet 40 mg PO QDAY Qty: 90 3RF metoprolol succinate 50 mg tablet extended release 24 hr 50 mg PO DAILY Qty: 90 3RF amlodipine 5 mg tablet See Rx Instructions .ROUTE .COMPLEX Qty: 90 3RF Dose Instruction: Take 1 tablet by mouth once daily Rx Instructions: Take 1 tablet by mouth once daily atorvastatin 40 mg tablet 40 mg PO QHS Qty: 90 1RF clopidogrel 75 mg tablet 75 mg PO DAILY Qty: 90 3RF pantoprazole [Protonix] 40 mg tablet,delayed release (DR/EC) 40 mg PO QDAY Qty: 90 1RF Primary Care Provider: Julia Lofton Referrals: Julia Lofton MD [Primary Care Provider, Internal Medicine] - 3-5 Days if not improving Print Language: Korean Disposition Disposition: Home, Self Care
--- NOTE | 2025-10-10 13:55 | RAD_ITS ---
PROCEDURE: CHEST 1 VIEW (PORTABLE) 10/10/2025 REASON FOR EXAM: DYSPNEA TECHNIQUE: Frontal view of the chest. COMPARISON: 12/02/2024 FINDINGS: Mild pulmonary edema. No focal consolidation. No pleural effusion or pneumothorax. Cardiac silhouette is within normal limits. No acute fractures. RAD/Chest 1 View (Portable) IMPRESSION: Mild pulmonary edema. No focal consolidations. Reading Location: [facility]
[2025-10-10 13:59] LABS: Hematocrit 37.7 % (37-47); Hemoglobin 12.6 g/dL (12.0-15.0); Immature Granulocytes Count 0.030 X10^3/uL (0.0-0.0); Mean Corp Hgb Conc 33.4 g/dL (32-36); Mean Corpuscular Volume 85.7 fL (81-99); Mean Platelet Vol. 10.2 fl (6.2-12.0); NRBC Flagged by Analyzer 0 % (0-5); Platelet Count 245 K/mm3 (150-450); RBC Distribution Width CV 12.7 % (11.6-14.6); RBC Distribution Width SD 40.0 fl (35.1-43.9); Red Blood Count 4.40 M/mm3 (4.2-5.4); White Blood Count 6.8 K/mm3 (4.4-11.0)
[2025-10-10 15:07] LABS: Troponin T High Sensitivity 9 ng/L (<=14)
[2025-10-10 15:10] LABS: Anion Gap 12 (7-18); BUN 15 mg/dL (4-19); BUN/Creat Ratio 17.4 RATIO (10-20); Calcium,Total 9.5 mg/dL (7.6-11.0); Carbon Dioxide 27.9 mmol/L (20.0-29.0); Chloride 102 mmol/L (96-106); Estimated Creatinine Clearance 54.04 ml/min (50-250); Glucose 99 mg/dL (70-99); Potassium 3.6 mmol/L (3.5-5.1); Pro- Brain NATRIURETIC PEPTIDE 622 pg/mL (<=1800)
[2025-10-10 15:42] VITALS: BP 143/70; PULSE 68; RESP 17; TEMP 36.2; O2SAT 99
== END 2025-10-10 15:43 | disposition home or self-care (01) ==
PROVIDERS: Emergency Provider Emergency Medicine; PCP Internal Medicine; Visit Provider Emergency Medicine
DX: M79.89 Other specified soft tissue disorders (principal); I11.0 Hypertensive heart disease with heart failure; I50.9 Heart failure, unspecified; J44.9 Chronic obstructive pulmonary disease, unspecified; Z87.891 Personal history of nicotine dependence; Z79.899 Other long term (current) drug therapy; I25.10 Atherosclerotic heart disease of native coronary artery without angina pectoris; E78.00 Pure hypercholesterolemia, unspecified; Z95.5 Presence of coronary angioplasty implant and graft; Z90.49 Acquired absence of other specified parts of digestive tract; Z90.710 Acquired absence of both cervix and uterus; R06.09 Other forms of dyspnea; S92.512D Displaced fracture of proximal phalanx of left lesser toe(s), subsequent encounter for fracture with routine healing; W22.03XD Walked into furniture, subsequent encounter; Z86.73 Personal history of transient ischemic attack (TIA), and cerebral infarction without residual deficits; I25.2 Old myocardial infarction; G47.33 Obstructive sleep apnea (adult) (pediatric)
CPT/HCPCS: 71045; 73630; 80048; 83880; 84484; 85025; 93971; 99283; A4216